=== PATIENT | male | born 1955 | race Caucasian/White ===

== ENCOUNTER → 2017-01-09 | Outpatient (CLI) | payer MEDICARE ==
[2016-10-08 09:38] VITALS: BP 120/83
[~2017-01-09] MED LIST: APIX5TAB PO; ASPI-482 PO; ATOR20TA58 PO; Albuterol Sulfate NEB; BREO ELLIPTA 21 EACH IH; BUDE10.2 IH; CARV3.122 PO; CEPH500C PO; CITA20TA9 PO; CLOP75TA57 PO; CYCL10TA2 PO; FINA5TAB4 PO; FLUT1DIS3 IH; GABA-585 PO; GABA-586 PO; Guaifenesin/Dextromethorphan PO; HYDR-2762 PO; HYDR-971 PO; HYDR200T5 PO; Hydrocodone/Acetaminophen PO; INSU100I11 SQ; INSU100I17 SQ; INSU100V13 SQ; INSU100V31 SQ; INSU100V8 SQ; IPRA4AER IH; Insulin Detemir SQ; Ipratropium/Albuterol Sulfate NEB; LEVO500T59 PO; LISI2.5T PO; METF-620 PO; METF100010 PO; NITR0.4T22 SL; OMEP40CA2 PO; OMEP40CA5 PO; PRED20TA PO; PROAIR HFA8.5 GM IH; SERT50TA PO; TAMS0.4C2 PO
--- NOTE | 2017-01-09 11:16 | KCIC ---
Examination: Frontal views of the bilateral hands, bilateral feet, bilateral knees, pelvis, lateral views of the cervical spine were performed HISTORY: History of chronic pain COMPARISON: None available FINDINGS: Cervical spine lateral view: The vertebral body heights are maintained. There is moderate joint space loss identified at C3-C4, C4-C5, C5-C6, C6-C7 vertebral levels.. No evidence of listhesis identified. No evidence of prevertebral soft tissue swelling The facets are well aligned There is mild anterior compression change of C5 vertebral level. Pelvis: The bilateral femoral heads within the acetabulum. Mild joint space loss bilateral hip joints. Bilateral knees: Mild joint space loss identified in the medial compartment of bilateral knees. No acute fracture Bilateral hands: Old fracture or nonfusion of the ulnar styloid of the left hand. Small curvilinear probable soft tissue calcification projecting over the proximal medial aspect of the proximal phalanx of the third digit of the left hand. Mild degenerative changes identified in the interphalangeal joints of the bilateral hands The alignment of the metacarpophalangeal joints, interphalangeal grossly appears unremarkable bilaterally bilateral feet: The tarsal bones appear to be well aligned. Mild degenerative changes identified in the bilateral metatarsophalangeal joints and interphalangeal joints of the bilateral feet. IMPRESSION: 1. Moderate degenerative changes cervical spine. There is mild anterior compression change of C5 vertebra, age indeterminate. 2. Mild degenerative changes bilateral hips, medial bilateral knee joints, interphalangeal joints bilateral hands and bilateral feet. Electronically signed by: Delgado Prather MD (01/09/2017 11:13 AM) [facility] [id number]
== END | disposition home or self-care (01) ==
LOC: KCIC 10:17
PROVIDERS: ATTEND Internal Medicine Rheumatology
DX: M54.2 Cervicalgia (principal); M47.892 Other spondylosis, cervical region; M16.0 Bilateral primary osteoarthritis of hip; G89.29 Other chronic pain
CPT/HCPCS: 72020; 72170; 73120; 73565; 73620

== ENCOUNTER → 2017-01-23 | Outpatient (CLI) | payer MEDICARE ==
[2016-10-08 09:38] VITALS: BP 120/83
--- NOTE | 2017-01-23 13:28 | RAD ---
APPROVED REPORT Left Upper Extremity Venous Study for DVT. Patient Location: OUT-PATIENT Indications DVT of Upper Extremity:Left Vein Imaging (Left) IJV (L): Absent Flow SCV (L): Spontaneous Axillary (L): Spontaneous, Compressible Brachial (L): Spontaneous, Compressible Basilic (L): Compressible, Spontaneous Cephalic (L): Compressible, Spontaneous Radial (L): Spontaneous, Compressible Ulnar (L): Compressible, Spontaneous Findings Taylor scale images of the left upper extremity deep veins was obtained. The cephalic, brachial and rad ial veins demonstrate spontaneous flow by spectral imaging. On color Doppler imaging there is normal flow. The left subclavian is not well visualized in the most proximal segment but otherwise demonstra ashanti normal spectral and color imaging. No obvious occlusive thrombus is noted in these vessels. The left internal jugular vein has chronic thrombus noted with no flow in the mid to distal segment n ear the junction of the left subclavian vein. More proximally there is flow noted towards the area of the mandible. Critical Notification Critical Value: No <Conclusion> Persistent left internal jugular vein thrombus. Normal flow on the left subclavian on limited images.
== END | disposition home or self-care (01) ==
LOC: US 06:57
PROVIDERS: ATTEND Internal Medicine Cardiovascular Disease
DX: I82.402 Acute embolism and thrombosis of unspecified deep veins of left lower extremity (principal)
CPT/HCPCS: 93971

== ENCOUNTER → 2017-05-03 | Outpatient (CLI) | payer MEDICARE | END | disposition home or self-care (01) | LOC: US 07:41 | DX: I82.622 Acute embolism and thrombosis of deep veins of left upper extremity (principal) | CPT/HCPCS: 93971 ==

== ENCOUNTER → 2017-11-10 | Outpatient (CLI) | payer MEDICARE ==
[~2017-11-10] MED LIST changes: -APIX5TAB PO; -ASPI-482 PO; -ATOR20TA58 PO; -Albuterol Sulfate NEB; -BREO ELLIPTA 21 EACH IH; -BUDE10.2 IH; -CARV3.122 PO; -CEPH500C PO; -CITA20TA9 PO; -CLOP75TA57 PO; -CYCL10TA2 PO; -FINA5TAB4 PO; -FLUT1DIS3 IH; -GABA-585 PO; -GABA-586 PO; -Guaifenesin/Dextromethorphan PO; -HYDR-2762 PO; -HYDR-971 PO; -HYDR200T5 PO; -Hydrocodone/Acetaminophen PO; -INSU100I11 SQ; -INSU100I17 SQ; -INSU100V13 SQ; -INSU100V31 SQ; -INSU100V8 SQ; -IPRA4AER IH; -Insulin Detemir SQ; -Ipratropium/Albuterol Sulfate NEB; -LEVO500T59 PO; -LISI2.5T PO; -METF-620 PO; -METF100010 PO; -NITR0.4T22 SL; -OMEP40CA2 PO; -OMEP40CA5 PO; +PERFLUTREN PROTEIN-A MICROSPHR 0.22 MG/ML 3 ML VIAL. IV; -PRED20TA PO; -PROAIR HFA8.5 GM IH; -SERT50TA PO; -TAMS0.4C2 PO
[2017-11-10] MEDS: PERFLUTREN PROTEIN-A MICROSPHR 0.22 MG/ML 3 ML VIAL. IV (09:54)
== END | disposition home or self-care (01) ==
LOC: ECHO 08:51
DX: G90.01 Carotid sinus syncope (principal); I51.7 Cardiomegaly; I10 Essential (primary) hypertension; E11.9 Type 2 diabetes mellitus without complications; E78.00 Pure hypercholesterolemia, unspecified; J44.9 Chronic obstructive pulmonary disease, unspecified; K21.9 Gastro-esophageal reflux disease without esophagitis
CPT/HCPCS: C8929; Q9956

== ENCOUNTER 2017-11-28 09:24 | Inpatient (IN) | payer MEDICARE ==
[~2017-11-28] VITALS: Ht 182.9 cm; Wt 105.9 kg
[~2017-11-28 09:24] MED LIST changes: +APIX5TAB PO; +ASPI-482 PO; +ATOR20TA58 PO; +Albuterol Sulfate NEB; +BREO ELLIPTA 21 EACH IH; +BUDE10.2 IH; +CARV3.122 PO; +CEPH500C PO; +CITA20TA9 PO; +CLOP75TA57 PO; +CYCL10TA2 PO; +FINA5TAB4 PO; +FLUT1DIS3 IH; +GABA-585 PO; +GABA-586 PO; +Guaifenesin/Dextromethorphan PO; +HYDR-2762 PO; +HYDR-971 PO; +HYDR200T5 PO; +Hydrocodone/Acetaminophen PO; +INSU100I11 SQ; +INSU100I17 SQ; +INSU100V13 SQ; +INSU100V31 SQ; +INSU100V8 SQ; +IPRA4AER IH; +Insulin Detemir SQ; +Ipratropium/Albuterol Sulfate NEB; +LEVO500T59 PO; +LISI2.5T PO; +METF100010 PO; +METF10003 PO; +NITR0.4T22 SL; +OMEP40CA2 PO; +OMEP40CA5 PO; -PERFLUTREN PROTEIN-A MICROSPHR 0.22 MG/ML 3 ML VIAL. IV; +PRED20TA PO; +PROAIR HFA8.5 GM IH; +SERT50TA PO; +TAMS0.4C2 PO
--- NOTE | 2017-11-28 09:52 | PHYS DOC ---
Past Medical History Past Medical History: Asthma, COPD, Depression, Diabetes-Type II, GERD, High Cholesterol, P.U.D., Other Additional Past Medical Histor: chronic pain, ulcers, enlarged prostate Past Surgical History: Appendectomy, Cholecystectomy, Other Additional Past Surgical Histo: back, hernia Alcohol Use: Occasionally Drug Use: Marijuana Adult General Chief Complaint Chief Complaint: SYNCOPE HPI HPI Patient is a 62 year old female with a history of diabetes, hypertension, COPD (pack-a-day smoker), CAD presents to the ED complaining of dizziness and syncopal like episode times one day. Patient states last night when he was on the toilet and he was having a bowel movement and when he stood up he felt like he was going to pass out. States similar symptoms again at 3 this morning and when he stands up now he gets very dizzy. Associated symptoms include cough and shortness of breath. Denies chest pain, abdominal pain, lower leg swelling, fever, dizziness rash or diarrhea. Review of Systems Review of Systems Constitutional: Denies fever or chills [] Eyes: Denies change in visual acuity, redness, or eye pain [] HENT: Denies nasal congestion or sore throat [] Respiratory: Complains of cough and shortness of breath. Cardiovascular: No additional information not addressed in HPI [] GI: Denies abdominal pain, nausea, vomiting, bloody stools or diarrhea [] : Denies dysuria or hematuria [] Musculoskeletal: Denies back pain or joint pain [] Integument: Denies rash or skin lesions [] Neurologic: Denies headache, focal weakness or sensory changes [] All other systems were reviewed and found to be within normal limits, except as documented in this note. Current Medications Current Medications Current Medications Medications (Trade) Dose Ordered Sig/Aretha Start Time Stop Time Status Last Admin Dose Admin Albuterol/ Ipratropium (Duoneb) 3 ml 1X ONCE 11/28/17 10:00 11/28/17 10:01 DC 11/28/17 10:01 3 ML Info (CONTRAST GIVEN -- Rx MONITORING) 1 each PRN DAILY PRN 11/28/17 11:45 11/30/17 11:44 Iohexol (Omnipaque 300 Mg/ml) 75 ml 1X ONCE 11/28/17 11:45 11/28/17 11:46 DC 11/28/17 12:00 75 ML Lidocaine HCl (Lidocaine Pf 2% Vial) 5 ml 1X ONCE 11/28/17 11:30 11/28/17 11:39 DC Sodium Chloride 1,000 ml @ 1,000 mls/hr 1X ONCE 11/28/17 11:30 11/28/17 12:29 DC 11/28/17 11:51 1,000 MLS/HR Allergies Allergies Allergies Coded Allergies Type Severity Reaction Last Updated Verified No Known Drug Allergies 01/29/15 No Physical Exam Physical Exam Constitutional: Well developed, well nourished, no acute distress, non-toxic appearance. [] HENT: Normocephalic, atraumatic, bilateral external ears normal, oropharynx moist, no oral exudates, nose normal. [] Eyes: PERRLA, EOMI, conjunctiva normal, no discharge. [] Neck: Normal range of motion, no tenderness, supple, no stridor. [] Cardiovascular:Heart rate regular rhythm, no murmur [] Lungs & Thorax: Bilateral breath sounds. Mild wheezing bilaterally. [] Abdomen: Bowel sounds normal, soft, no tenderness, no masses, no pulsatile masses. [] Skin: Warm, dry, no erythema, no rash. [] Back: No tenderness, no CVA tenderness. [] Extremities: No tenderness, no cyanosis, no clubbing, ROM intact, no edema. [] Neurologic: Alert and oriented X 3, normal motor function, normal sensory function, no focal deficits noted. [] Psychologic: Affect normal, judgement normal, mood normal. [] Current Patient Data Vital Signs Vital Signs Date Time Temp Pulse Resp B/P (MAP) Pulse Ox O2 Delivery O2 Flow Rate FiO2 11/28/17 12:09 103 24 148/98 (115) 97 Room Air 11/28/17 11:20 97.9 97.9 Lab Values Laboratory Tests Test 11/28/17 10:05 11/28/17 10:50 White Blood Count 7.5 x10^3/uL (4.0-11.0) Red Blood Count 5.46 x10^6/uL (4.30-5.70) Hemoglobin 16.9 g/dL (13.0-17.5) Hematocrit 48.5 % (39.0-53.0) Mean Corpuscular Volume 89 fL (79-100) Mean Corpuscular Hemoglobin 31 pg (25-35) Mean Corpuscular Hemoglobin Concent 35 g/dL (31-37) Red Cell Distribution Width 13.9 % (11.5-14.5) Platelet Count 171 x10^3/uL (140-400) Neutrophils (%) (Auto) 61 % (31-73) Lymphocytes (%) (Auto) 23 % (24-48) L Monocytes (%) (Auto) 13 % (0-9) H Eosinophils (%) (Auto) 2 % (0-3) Basophils (%) (Auto) 1 % (0-3) Neutrophils # (Auto) 4.6 x10^3uL (1.8-7.7) Lymphocytes # (Auto) 1.7 x10^3/uL (1.0-4.8) Monocytes # (Auto) 1.0 x10^3/uL (0.0-1.1) Eosinophils # (Auto) 0.1 x10^3/uL (0.0-0.7) Basophils # (Auto) 0.1 x10^3/uL (0.0-0.2) Prothrombin Time 12.5 SEC (11.7-14.0) Prothrombin Time INR 1.0 (0.8-1.1) D-Dimer (Marga) 0.61 ug/mlFEU (0.00-0.50) H Sodium Level 139 mmol/L (136-145) Potassium Level 4.0 mmol/L (3.5-5.1) Chloride Level 104 mmol/L (98-107) Carbon Dioxide Level 24 mmol/L (21-32) Anion Gap 11 (6-14) Blood Urea Nitrogen 20 mg/dL (8-26) Creatinine 1.1 mg/dL (0.7-1.3) Estimated GFR (Cockcroft-Gault) 67.4 BUN/Creatinine Ratio 18 (6-20) Glucose Level 197 mg/dL (70-99) H Lactic Acid Level 2.1 mmol/L (0.4-2.0) H Calcium Level 9.7 mg/dL (8.5-10.1) Magnesium Level 1.9 mg/dL (1.8-2.4) Total Bilirubin 0.5 mg/dL (0.2-1.0) Aspartate Amino Transferase (AST) 23 U/L (15-37) Alanine Aminotransferase (ALT) 36 U/L (16-63) Alkaline Phosphatase 125 U/L (46-116) H Creatine Kinase 112 U/L (39-308) Troponin I Quantitative < 0.017 ng/mL (0.000-0.055) HN-Nfp-I-Type Natriuretic Peptide 448 pg/mL (0-124) H Total Protein 7.7 g/dL (6.4-8.2) Albumin 3.6 g/dL (3.4-5.0) Albumin/Globulin Ratio 0.9 (1.0-1.7) L Thyroid Stimulating Hormone (TSH) 1.577 uIU/mL (0.358-3.74) Urine Collection Type Unknown Urine Color Zoë Urine Clarity Clear Urine pH 5.5 Urine Specific Charlotte >=1.030 Urine Protein 30 mg/dL (NEG-TRACE) Urine Glucose (UA) 100 mg/dL (NEG) Urine Ketones (Stick) Negative mg/dL (NEG) Urine Blood Negative (NEG) Urine Nitrite Negative (NEG) Urine Bilirubin Small (NEG) Urine Urobilinogen Dipstick 1.0 mg/dL (0.2 mg/dL) Urine Leukocyte Esterase Negative (NEG) Urine RBC Occ /HPF (0-2) Urine WBC 1-4 /HPF (0-4) Urine Squamous Epithelial Cells Few /LPF Urine Bacteria Few /HPF (0-FEW) Urine Mucus Mod /LPF Urine Opiates Screen Neg (NEG) Urine Methadone Screen Neg (NEG) Urine Barbiturates Neg (NEG) Urine Phencyclidine Screen Neg (NEG) Urine Amphetamine/Methamphetamine Neg (NEG) Urine Benzodiazepines Screen Neg (NEG) Urine Cocaine Screen Neg (NEG) Urine Cannabinoids Screen Pos (NEG) Urine Ethyl Alcohol Neg (NEG) Laboratory Tests 11/28/17 10:05 Laboratory Tests 11/28/17 10:05 Microbiology 11/28/17 Blood Culture - Preliminary, Resulted NO GROWTH AFTER 1 DAY EKG EKG [] Radiology/Procedures Radiology/Procedures CT HEAD INDICATION: DIZZINESS, SYNCOPE, EXTREMITY NUMBNESS, TINGLING, H/O STROKE. CVA 2005 COMPARISON: None Available. TECHNIQUE: 5 mm contiguous axial images were obtained from the skull base to the vertex in both bone and soft tissue algorithm. Exposure: One or more of the following individualized dose reduction techniques were utilized for this examination: 1. Automated exposure control 2. Adjustment of the mA and/or kV according to patient size 3. Use of iterative reconstruction technique FINDINGS: Moderate bilateral periventricular white matter hypodensities likely chronic small vessel ischemic disease. No evidence of acute intracranial hemorrhage. No extra-axial fluid collections. No mass effect or midline shift. Ventricular size is appropriate. Basal cisterns are patent. No fractures identified.Taylor-white differentiation is preserved.Globes and orbits are within normal limits. Paranasal sinuses and mastoid air cells are clear. IMPRESSION: No acute intracranial findings. EXAM: CHEST 1 VIEW History: Shortness of breath COMPARISON: 10/07/2016 TECHNIQUE: Single portable radiograph of the chest FINDINGS: The cardiac silhouette is unremarkable. Left-sided cardiac pacer is identified. The costophrenic sulci are clear and well demarcated. IMPRESSION: No radiographic evidence of an acute cardiopulmonary process. PROCEDURE: CT ANGIOGRAPHY CHEST PQRS Compliance Statement: One or more of the following individualized dose reduction techniques were utilized for this examination: 1. Automated exposure control 2. Adjustment of the mA and/or kV according to patient size 3. Use of iterative reconstruction technique CT CHEST WITH CONTRAST, PULMONARY ANGIOGRAM History: SOA. DIZZINESS, WEAKNESS. Comparison: CT chest with contrast, CT PE, October 07, 2016. Technique: Helical CT of the chest was performed after the administration of 75 cc Omnipaque 300 intravenous contrast according to PE protocol. Axial and coronal reconstructions were obtained. 3-D MIP images were constructed to better evaluate the pulmonary arteries. Findings: Pulmonary arteries are adequately opacified. There is no evidence of pulmonary embolism. There is left chest dual-chamber pacer. With left-sided injection there is opacification of multiple left chest wall collaterals and the azygos system raising possibility of impaired central venous return. There is no thoracic aortic dissection. There are subcentimeter mediastinal lymph nodes. There is mild right hilar adenopathy, unchanged. There is coronary artery disease. Cardiac size normal, no pericardial effusion. The central airways are patent. Mild dependent atelectasis in the lower lobes. There is no lung consolidation. No pleural effusion. Cholecystectomy. Visualized upper abdomen is unremarkable. Bones unremarkable. IMPRESSION: There is no CT evidence of pulmonary embolus. Course & Med Decision Making Course & Med Decision Making Pertinent Labs and Imaging studies reviewed. (See chart for details) []Discussed case with hospitalist, Dr. Salomon. Agrees to admission and further management of patient. Patient stable for admission. Consults for pulmonology and cardiology placed. Dragon Disclaimer Dragon Disclaimer This electronic medical record was generated, in whole or in part, using a voice recognition dictation system. Departure Departure Impression: Primary Impression: COPD (chronic obstructive pulmonary disease) Additional Impression: Pre-syncope Disposition: ADMITTED INPATIENT Admitting Physician: Xie. Mukherjee Condition: STABLE Referrals: STAN MOONEY MD (PCP) Problem Qualifiers VALERIY FRENCH Nov 28, 2017 09:51
--- NOTE | 2017-11-28 09:54 | EKG ---
[facility] [address] [place] [address] Test Date: 2017-11-28 Test Time: 09:47:57 Pat Name: JASPREET JAY Department: Room: Gender: M Director Biostatistics: : 1955 Requested By: VALERIY FRENCH Order Number: [id number] Reading MD: Measurements Intervals Hector Rate: 118 P: -68 MI: 90 QRS: -59 QRSD: 112 T: 90 QT: 328 QTc: 462 Interpretive Statements SINUS TACHYCARDIA ABNORMAL LEFT AXIS DEVIATION LEFT ANTERIOR FASCICULAR BLOCK INCOMPLETE RIGHT BUNDLE BRANCH BLOCK LVH WITH REPOLARIZATION ABNORMALITY ABNORMAL ECG RI6.01 No previous ECG available for comparison
[2017-11-28] MEDS ORDERED: IPRATRPIUM/ALBUTEROL 0.5/2.5MG 3 ML NEBU. NEB ONE ×2 (10:00→13:00)
--- NOTE | 2017-11-28 10:12 | RAD ---
EXAM: CHEST 1 VIEW History: Shortness of breath COMPARISON: 10/07/2016 TECHNIQUE: Single portable radiograph of the chest FINDINGS: The cardiac silhouette is unremarkable. Left-sided cardiac pacer is identified. The costophrenic sulci are clear and well demarcated. IMPRESSION: No radiographic evidence of an acute cardiopulmonary process. Electronically signed by: Delgado Prather MD (11/28/2017 10:08 AM) [id number]
[2017-11-28 10:24] LABS: BASO # 0.1 x10^3/uL (0.0-0.2); BASO % 1 % (0-3); EOS # 0.1 x10^3/uL (0.0-0.7); EOS % 2 % (0-3); HEMATOCRIT 48.5 % (39.0-53.0); HEMOGLOBIN 16.9 g/dL (13.0-17.5); LYMPH # 1.7 x10^3/uL (1.0-4.8); LYMPH % 23 % (24-48); MEAN CORPUSCULAR HEMOGLOBIN 31 pg (25-35); MEAN CORPUSCULAR HGB CONC 35 g/dL (31-37); MEAN CORPUSCULAR VOLUME 89 fL (79-100); MONO % 13 % (0-9); NEUT # 4.6 x10^3uL (1.8-7.7); NEUT % 61 % (31-73); PLATELET COUNT 171 x10^3/uL (140-400); RED BLOOD COUNT 5.46 x10^6/uL (4.30-5.70); RED CELL DISTRIBUTION WIDTH 13.9 % (11.5-14.5); WHITE BLOOD COUNT 7.5 x10^3/uL (4.0-11.0)
[2017-11-28 10:34] LABS: PROTHROMBIN TIME PATIENT 12.5 SEC (11.7-14.0)
[2017-11-28 10:39] LABS: D-DIMER 0.61 ug/mlFEU (0.00-0.50)
[2017-11-28 10:46] LABS: CALCIUM 9.7 mg/dL (8.5-10.1); CREATININE 1.1 mg/dL (0.7-1.3); GFR 67.4
[2017-11-28 10:51] LABS: ALBUMIN 3.6 g/dL (3.4-5.0); ALBUMIN/GLOBULIN RATIO 0.9 (1.0-1.7); MAGNESIUM 1.9 mg/dL (1.8-2.4); TOTAL BILIRUBIN 0.5 mg/dL (0.2-1.0); TOTAL PROTEIN 7.7 g/dL (6.4-8.2)
--- NOTE | 2017-11-28 10:58 | RAD ---
CT HEAD INDICATION: DIZZINESS, SYNCOPE, EXTREMITY NUMBNESS, TINGLING, H/O STROKE. CVA 2005 COMPARISON: None Available. TECHNIQUE: 5 mm contiguous axial images were obtained from the skull base to the vertex in both bone and soft tissue algorithm. Exposure: One or more of the following individualized dose reduction techniques were utilized for this examination: 1. Automated exposure control 2. Adjustment of the mA and/or kV according to patient size 3. Use of iterative reconstruction technique FINDINGS: Moderate bilateral periventricular white matter hypodensities likely chronic small vessel ischemic disease. No evidence of acute intracranial hemorrhage. No extra-axial fluid collections. No mass effect or midline shift. Ventricular size is appropriate. Basal cisterns are patent. No fractures identified.Taylor-white differentiation is preserved.Globes and orbits are within normal limits. Paranasal sinuses and mastoid air cells are clear. IMPRESSION: No acute intracranial findings. Electronically signed by: Delgado Prather MD (11/28/2017 10:54 AM) [id number]
[2017-11-28 11:05] LABS: BILIRUBIN,URINE SMALL (NEG); CLARITY,URINE CLEAR; COLOR,URINE AMBER; NITRITE,URINE NEGATIVE (NEG); PH,URINE 5.5; PROTEIN,URINE 30 mg/dL (NEG-TRACE)
[2017-11-28 11:13] LABS: BARBITURATES NEG (NEG); BENZODIAZEPINES NEG (NEG); CANNABINOIDS POS (NEG); COCAINE NEG (NEG); METHADONE NEG (NEG); OPIATES NEG (NEG); PHENCYCLIDINE NEG (NEG)
[2017-11-28 11:14] LABS: AMPHETAMINE/METHAMPHETAMINE NEG (NEG)
[2017-11-28 11:16] LABS: BACTERIA,URINE FEW /HPF (0-FEW); RBC,URINE OCC /HPF (0-2); SQUAMOUS EPITHELIAL CELL,UR FEW /LPF
[2017-11-28] MEDS ORDERED: IV NORMAL SALINE 1000ML BAG 1,000 ML IV ONE ×3 (11:30→13:45)
[2017-11-28] MEDS ORDERED: LIDOCAINE 2% PF Vial for OR 5 ML VIAL. IJ ONE (11:30)
[2017-11-28] MEDS ORDERED: CONTRAST GIVEN. MC PRN (11:45)
[2017-11-28] MEDS ORDERED: IOHEXOL 300 MG/ML 100ML VIAL. IV ONE (11:45)
--- NOTE | 2017-11-28 12:29 | RAD ---
PQRS Compliance Statement: One or more of the following individualized dose reduction techniques were utilized for this examination: 1. Automated exposure control 2. Adjustment of the mA and/or kV according to patient size 3. Use of iterative reconstruction technique CT CHEST WITH CONTRAST, PULMONARY ANGIOGRAM History: SOA. DIZZINESS, WEAKNESS. Comparison: CT chest with contrast, CT PE, October 07, 2016. Technique: Helical CT of the chest was performed after the administration of 75 cc Omnipaque 300 intravenous contrast according to PE protocol. Axial and coronal reconstructions were obtained. 3-D MIP images were constructed to better evaluate the pulmonary arteries. Findings: Pulmonary arteries are adequately opacified. There is no evidence of pulmonary embolism. There is left chest dual-chamber pacer. With left-sided injection there is opacification of multiple left chest wall collaterals and the azygos system raising possibility of impaired central venous return. There is no thoracic aortic dissection. There are subcentimeter mediastinal lymph nodes. There is mild right hilar adenopathy, unchanged. There is coronary artery disease. Cardiac size normal, no pericardial effusion. The central airways are patent. Mild dependent atelectasis in the lower lobes. There is no lung consolidation. No pleural effusion. Cholecystectomy. Visualized upper abdomen is unremarkable. Bones unremarkable. IMPRESSION: There is no CT evidence of pulmonary embolus. Electronically signed by: Shaji Yen MD (11/28/2017 12:25 PM) [id number]
[2017-11-28] MEDS ORDERED: MORPHINE SULFATE 2 MG/ML DISP.SYRIN. IV PRN (13:00)
[2017-11-28] MEDS ORDERED: ONDANSETRON PF 4 MG/2 ML VIAL. IV PRN ×2 (13:00→13:45)
[2017-11-28] MEDS ORDERED: ACETAMINOPHEN 325 MG TABLET. PO PRN ×2 (13:00→13:45)
--- NOTE | 2017-11-28 13:39 | PDOC1 ---
History and Physical Date of Admission Date of Admission 11/28/17 Identification/Chief Complaint Chief Complaint skin rash, dizzy Source Source: Chart review, Patient History of Present Illness History of Present Illness HPI HPI Patient is a 62 year old female with a history of diabetes, hypertension, COPD (pack-a-day smoker), CAD presents to the ED complaining of dizziness and syncopal like episode x2 ds. pt said since Monday, he felt very lightheaded, happens when he walks, not vertigo, almost passed out today when he went to bathroom when he was having a BM and stood up and felt like was going to pass out and saw his PCP in the office today for his skin rash. He denies chest pain, palpitation, sob, has chronic cough with copd and smoking 1PPD. He noticed his rt chest and rt back has some red bumps, itchy, some pain,denies contact or bug bite, feels more itchy when he increased his duloxtine from 30 to 60mg daily from PCP. CTA neg PE. denies drug use but + marijuana. Past Medical History Cardiovascular: CAD, HTN, Hyperlipidemia, Other Pulmonary: COPD, Pneumonia CENTRAL NERVOUS SYSTEM: CVA, Periperal neuropathy, Vertigo GI: GERD Heme/Onc: Cancer Hepatobiliary: Cirrhosis, Other Psych: Depression Rheumatologic: Rheumatoid arthritis, Other Infectious disease: No pertinent hx Renal/: Benign prostatic enlarg. Endocrine: Diabetes Past Surgical History Past Surgical History: Pacemaker, Appendectomy, Cholecystectomy, Hernia Repair , Other Family History Family History: Hypertension Social History Smoke: 1 pack per day ALCOHOL: occassional Drugs: None Current Problem List Problem List Problems Medical Problems: (1) COPD (chronic obstructive pulmonary disease) Status: Acute (2) Pre-syncope Status: Acute Current Medications Current Medications Current Medications Medications (Trade) Dose Ordered Sig/Aretha Start Time Stop Time Status Last Admin Dose Admin Acetaminophen (Tylenol) 650 mg PRN Q4HRS PRN 11/28/17 13:00 11/29/17 12:59 Albuterol/ Ipratropium (Duoneb) 3 ml 1X ONCE 11/28/17 13:00 11/28/17 13:01 DC Azithromycin 500 mg/Sodium Chloride 250 ml @ 250 mls/hr 1X ONCE 11/28/17 14:30 11/28/17 15:29 Ceftriaxone Sodium 50 ml @ 100 mls/hr 1X ONCE 11/28/17 14:00 11/28/17 14:29 Info (CONTRAST GIVEN -- Rx MONITORING) 1 each PRN DAILY PRN 11/28/17 11:45 11/30/17 11:44 Iohexol (Omnipaque 300 Mg/ml) 75 ml 1X ONCE 11/28/17 11:45 11/28/17 11:46 DC 11/28/17 12:00 75 ML Lidocaine HCl (Lidocaine Pf 2% Vial) 5 ml 1X ONCE 11/28/17 11:30 11/28/17 11:39 DC Morphine Sulfate (Morphine Sulfate) 2 mg PRN Q2HR PRN 11/28/17 13:00 11/29/17 12:59 Ondansetron HCl (Zofran) 4 mg PRN Q8HRS PRN 11/28/17 13:00 11/29/17 12:59 Sodium Chloride 1,000 ml @ 1,000 mls/hr 1X ONCE 11/28/17 13:45 11/28/17 14:44 Allergies Allergies Allergies Coded Allergies Type Severity Reaction Last Updated Verified No Known Drug Allergies 01/29/15 No ROS Review of System CONSTITUTIONAL: No fever or chills EYES: No recent changes SKIN: No rash or itching CARDIOVASCULAR: No chest pain, syncope, palpitations, or edema RESPIRATORY: No SOB or cough GASTROINTESTINAL: No nausea, vomiting or abdominal pain NEUROLOGICAL: No headaches or weakness ENDOCRINE: No cold or heat intolerance GENITOURINARY: No urgency or frequency of urination MUSCULOSKELETAL: No back pain or joint pain LYMPHATICS: No enlarged lymph nodes PSYCHIATRIC: No anxiety or depression Physical Exam Physical Exam GEN.: No apparent distress. Alert and oriented. HEENT: Head is normocephalic, atraumatic NECK: Supple. LUNGS: bl course bs, no wheezing or rales. HEART: RRR, S1, S2 present. Peripheral pulses intact ABDOMEN: Soft, nontender. Positive bowel sounds. EXTREMITIES: Without any cyanosis. right side mild weakness, 3-4/5, left side 5/5. NEUROLOGIC: Normal speech, normal tone PSYCHIATRIC: Normal affect, normal mood. SKIN: rt chest and right back has some red papules, with a few vesicles broken by his scratch. Vitals Vitals Vital Signs Date Time Temp Pulse Resp B/P (MAP) Pulse Ox O2 Delivery O2 Flow Rate FiO2 11/28/17 12:54 105 20 145/90 (108) 96 Room Air 11/28/17 11:20 97.9 97.9 Labs Labs Laboratory Tests Test 11/28/17 10:05 11/28/17 10:50 White Blood Count 7.5 x10^3/uL (4.0-11.0) Red Blood Count 5.46 x10^6/uL (4.30-5.70) Hemoglobin 16.9 g/dL (13.0-17.5) Hematocrit 48.5 % (39.0-53.0) Mean Corpuscular Volume 89 fL (79-100) Mean Corpuscular Hemoglobin 31 pg (25-35) Mean Corpuscular Hemoglobin Concent 35 g/dL (31-37) Red Cell Distribution Width 13.9 % (11.5-14.5) Platelet Count 171 x10^3/uL (140-400) Neutrophils (%) (Auto) 61 % (31-73) Lymphocytes (%) (Auto) 23 % (24-48) Monocytes (%) (Auto) 13 % (0-9) Eosinophils (%) (Auto) 2 % (0-3) Basophils (%) (Auto) 1 % (0-3) Neutrophils # (Auto) 4.6 x10^3uL (1.8-7.7) Lymphocytes # (Auto) 1.7 x10^3/uL (1.0-4.8) Monocytes # (Auto) 1.0 x10^3/uL (0.0-1.1) Eosinophils # (Auto) 0.1 x10^3/uL (0.0-0.7) Basophils # (Auto) 0.1 x10^3/uL (0.0-0.2) Prothrombin Time 12.5 SEC (11.7-14.0) Prothromb Time International Ratio 1.0 (0.8-1.1) D-Dimer (Marga) 0.61 ug/mlFEU (0.00-0.50) Sodium Level 139 mmol/L (136-145) Potassium Level 4.0 mmol/L (3.5-5.1) Chloride Level 104 mmol/L (98-107) Carbon Dioxide Level 24 mmol/L (21-32) Anion Gap 11 (6-14) Blood Urea Nitrogen 20 mg/dL (8-26) Creatinine 1.1 mg/dL (0.7-1.3) Estimated GFR (Cockcroft-Gault) 67.4 BUN/Creatinine Ratio 18 (6-20) Glucose Level 197 mg/dL (70-99) Lactic Acid Level 2.1 mmol/L (0.4-2.0) Calcium Level 9.7 mg/dL (8.5-10.1) Magnesium Level 1.9 mg/dL (1.8-2.4) Total Bilirubin 0.5 mg/dL (0.2-1.0) Aspartate Amino Transf (AST/SGOT) 23 U/L (15-37) Alanine Aminotransferase (ALT/SGPT) 36 U/L (16-63) Alkaline Phosphatase 125 U/L (46-116) Creatine Kinase 112 U/L (39-308) Troponin I Quantitative < 0.017 ng/mL (0.000-0.055) KK-Ogm-G-Type Natriuretic Peptide 448 pg/mL (0-124) Total Protein 7.7 g/dL (6.4-8.2) Albumin 3.6 g/dL (3.4-5.0) Albumin/Globulin Ratio 0.9 (1.0-1.7) Thyroid Stimulating Hormone (TSH) 1.577 uIU/mL (0.358-3.74) Urine Collection Type Unknown Urine Color Zoë Urine Clarity Clear Urine pH 5.5 Urine Specific [place] >=1.030 Urine Protein 30 mg/dL (NEG-TRACE) Urine Glucose (UA) 100 mg/dL (NEG) Urine Ketones (Stick) Negative mg/dL (NEG) Urine Blood Negative (NEG) Urine Nitrite Negative (NEG) Urine Bilirubin Small (NEG) Urine Urobilinogen Dipstick 1.0 mg/dL (0.2 mg/dL) Urine Leukocyte Esterase Negative (NEG) Urine RBC Occ /HPF (0-2) Urine WBC 1-4 /HPF (0-4) Urine Squamous Epithelial Cells Few /LPF Urine Bacteria Few /HPF (0-FEW) Urine Mucus Mod /LPF Urine Opiates Screen Neg (NEG) Urine Methadone Screen Neg (NEG) Urine Barbiturates Neg (NEG) Urine Phencyclidine Screen Neg (NEG) Urine Amphetamine/Methamphetamine Neg (NEG) Urine Benzodiazepines Screen Neg (NEG) Urine Cocaine Screen Neg (NEG) Urine Cannabinoids Screen Pos (NEG) Urine Ethyl Alcohol Neg (NEG) Laboratory Tests Test 11/28/17 10:05 11/28/17 10:50 White Blood Count 7.5 x10^3/uL (4.0-11.0) Red Blood Count 5.46 x10^6/uL (4.30-5.70) Hemoglobin 16.9 g/dL (13.0-17.5) Hematocrit 48.5 % (39.0-53.0) Mean Corpuscular Volume 89 fL (79-100) Mean Corpuscular Hemoglobin 31 pg (25-35) Mean Corpuscular Hemoglobin Concent 35 g/dL (31-37) Red Cell Distribution Width 13.9 % (11.5-14.5) Platelet Count 171 x10^3/uL (140-400) Neutrophils (%) (Auto) 61 % (31-73) Lymphocytes (%) (Auto) 23 % (24-48) Monocytes (%) (Auto) 13 % (0-9) Eosinophils (%) (Auto) 2 % (0-3) Basophils (%) (Auto) 1 % (0-3) Neutrophils # (Auto) 4.6 x10^3uL (1.8-7.7) Lymphocytes # (Auto) 1.7 x10^3/uL (1.0-4.8) Monocytes # (Auto) 1.0 x10^3/uL (0.0-1.1) Eosinophils # (Auto) 0.1 x10^3/uL (0.0-0.7) Basophils # (Auto) 0.1 x10^3/uL (0.0-0.2) Prothrombin Time 12.5 SEC (11.7-14.0) Prothromb Time International Ratio 1.0 (0.8-1.1) D-Dimer (Marga) 0.61 ug/mlFEU (0.00-0.50) Sodium Level 139 mmol/L (136-145) Potassium Level 4.0 mmol/L (3.5-5.1) Chloride Level 104 mmol/L (98-107) Carbon Dioxide Level 24 mmol/L (21-32) Anion Gap 11 (6-14) Blood Urea Nitrogen 20 mg/dL (8-26) Creatinine 1.1 mg/dL (0.7-1.3) Estimated GFR (Cockcroft-Gault) 67.4 BUN/Creatinine Ratio 18 (6-20) Glucose Level 197 mg/dL (70-99) Lactic Acid Level 2.1 mmol/L (0.4-2.0) Calcium Level 9.7 mg/dL (8.5-10.1) Magnesium Level 1.9 mg/dL (1.8-2.4) Total Bilirubin 0.5 mg/dL (0.2-1.0) Aspartate Amino Transf (AST/SGOT) 23 U/L (15-37) Alanine Aminotransferase (ALT/SGPT) 36 U/L (16-63) Alkaline Phosphatase 125 U/L (46-116) Creatine Kinase 112 U/L (39-308) Troponin I Quantitative < 0.017 ng/mL (0.000-0.055) EU-Vnf-K-Type Natriuretic Peptide 448 pg/mL (0-124) Total Protein 7.7 g/dL (6.4-8.2) Albumin 3.6 g/dL (3.4-5.0) Albumin/Globulin Ratio 0.9 (1.0-1.7) Thyroid Stimulating Hormone (TSH) 1.577 uIU/mL (0.358-3.74) Urine Collection Type Unknown Urine Color Zoë Urine Clarity Clear Urine pH 5.5 Urine Specific [place] >=1.030 Urine Protein 30 mg/dL (NEG-TRACE) Urine Glucose (UA) 100 mg/dL (NEG) Urine Ketones (Stick) Negative mg/dL (NEG) Urine Blood Negative (NEG) Urine Nitrite Negative (NEG) Urine Bilirubin Small (NEG) Urine Urobilinogen Dipstick 1.0 mg/dL (0.2 mg/dL) Urine Leukocyte Esterase Negative (NEG) Urine RBC Occ /HPF (0-2) Urine WBC 1-4 /HPF (0-4) Urine Squamous Epithelial Cells Few /LPF Urine Bacteria Few /HPF (0-FEW) Urine Mucus Mod /LPF Urine Opiates Screen Neg (NEG) Urine Methadone Screen Neg (NEG) Urine Barbiturates Neg (NEG) Urine Phencyclidine Screen Neg (NEG) Urine Amphetamine/Methamphetamine Neg (NEG) Urine Benzodiazepines Screen Neg (NEG) Urine Cocaine Screen Neg (NEG) Urine Cannabinoids Screen Pos (NEG) Urine Ethyl Alcohol Neg (NEG) VTE Prophylaxis Ordered VTE Prophylaxis Devices: Yes VTE Pharmacological Prophylaxi: Yes Assessment/Plan Assessment/Plan dizzy/ lightheaded, presyncope, need to rule out orthostatic hypotension skin rash, not clear etiology, could be contact or bug bite PPM H/O CAD WITH stents dm2 on insulin COPD tobaccoism HTN HLD GERD depression BPH drug abuse with marijuana h/o stroke with mild rt side weakness groin aron dermatitis plan: tele, PPM integration ,defer to Card card, pulm, neuro consult CT head neg, may need MRI, defer to neuro need verify home meds ssi for now check orthostatic BP check carotid US nystatin powder for groin area steroid cream for chest and back rash, will try to get derm consult will do dvt ppx if not AC PTOT JORDI CASTREJON MD Nov 28, 2017 13:39
[2017-11-28] MEDS ORDERED: DEXTROSE 50% 25 GM / 50ML DISP.SYRIN. IV PRN (13:45)
[2017-11-28] MEDS ORDERED: DOCUSATE SODIUM 100 MG CAPSULE. PO PRN (13:45)
[2017-11-28] MEDS ORDERED: hydrALAZINE 20 MG/ML VIAL. IVP PRN (13:45)
[2017-11-28] MEDS ORDERED: AZITHROMYCIN 500 MG in IV NORMAL SALINE 250ML 250 ML IV ONE (14:30)
--- NOTE | 2017-11-28 14:40 | RAD ---
Carotid ultrasound, 11/28/2017: HISTORY: Severe lightheadedness Duplex evaluation of the carotid arteries and neck was performed including grayscale, color-flow and spectral Doppler analysis. There is mild smooth plaquing at the carotid bifurcations. The bifurcations are located somewhat high limiting evaluation of the internal carotid arteries. The peak systolic velocity in the right internal carotid artery is 80 cm per sec with an end-diastolic velocity of 27 cm/s and an internal carotid to common carotid artery ratio 1.0. The peak systolic velocity in the left internal carotid artery is 114 cm/s with an end-diastolic velocity of 20 cm/s and an internal carotid to common carotid artery ratio 1.2. These Doppler findings do not suggest high-grade stenosis. Antegrade flow is present in both vertebral arteries in the neck. IMPRESSION: Mild atherosclerotic plaquing at both carotid bifurcations with underlying luminal narrowing in the 0-50 percent diameter range bilaterally. Note: Stenosis calculations for CT, MRA and conventional angiography are based upon determination of the distal ICA diameter in accordance with the NASCET methodology. Stenosis calculations for Doppler studies are derived from validated velocity criteria which are known to correlate with NASCET methodology of determining stenosis. Electronically signed by: Héctor Moise MD (11/28/2017 2:36 PM) [facility]
[2017-11-28 14:51] VITALS: BP 142/91
[2017-11-28] MEDS: MORPHINE SULFATE 2 MG/ML DISP.SYRIN. IV PRN ×2 (15:11→17:36)
--- NOTE | 2017-11-28 15:24 | PDOC2 ---
NEUROLOGY CONSULT Date of Admission Date of Admission DATE: 11/28/17 TIME: 15:20 Reason for Consult Reason for Consult: Syncope Referring Physician Referring Physician: Dr. Salomon PCP: Dr. Nazario Source Source: Chart review, Patient History of Present Illness History of Present Illness The patient is a 62-year-old right-handed male who felt lightheaded 2 days ago after using the restroom. He has a history of cardiomyopathy and pacemaker. I have seen him in the past for bilateral carpal tunnel syndrome, diabetic neuropathy, cervical spondylosis without radiculopathy on EMG, left cubital tunnel syndrome, and right Guyon's canal syndrome. He underwent left carpal tunnel release and had excellent relief of symptoms. He has never had a seizure. He did have a stroke in 2005. He denies any history of head injury. Again, he simply felt lightheaded, he did not lose consciousness, there was no vertigo, diplopia, dysphagia, dysarthria, local numbness or weakness, convulsive activity, tongue biting, incontinence, or postictal confusion. Patient is also concerned about a rash she has had for the past few days. Past Medical History Cardiovascular: CAD, CHF, [place], Syncope (carotid artery hypersensitivity syndrome ), Hyperlipidemia Pulmonary: COPD CENTRAL NERVOUS SYSTEM: CVA, Periperal neuropathy GI: GERD Heme/Onc: Other (splenomegaly) Psych: Depression Musculoskeletal: Osteoarthritis Rheumatologic: Rheumatoid arthritis Renal/: Benign prostatic enlarg. Endocrine: Diabetes Past Surgical History Past Surgical History: Pacemaker, Hernia Repair, Other (lumbar) Family History Family History: Cancer Social History Social History , smokes a pack of cigarettes per day, no alcohol, retired Current Medications Current Medications Current Medications Albuterol/ Ipratropium (Duoneb) 3 ml 1X ONCE NEB Last administered on at 10:01; Start 11/28/17 at 10:00; Stop 11/28/17 at 10:01; Status DC Lidocaine HCl (Lidocaine Pf 2% Vial) 5 ml 1X ONCE IJ ; Start 11/28/17 at 11:30; Stop 11/28/17 at 11:39; Status DC Sodium Chloride 1,000 ml @ 1,000 mls/hr 1X ONCE IV Last administered on at 11:51; Start 11/28/17 at 11:30; Stop 11/28/17 at 12:29; Status DC Iohexol (Omnipaque 300 Mg/ml) 75 ml 1X ONCE IV Last administered on 11/28/17at 12:00; Start 11/28/17 at 11:45; Stop 11/28/17 at 11:46; Status DC Info (CONTRAST GIVEN -- Rx MONITORING) 1 each PRN DAILY PRN MC SEE COMMENTS; Start 11/28/17 at 11:45; Stop 11/30/17 at 11:44 Albuterol/ Ipratropium (Duoneb) 3 ml 1X ONCE NEB Last administered on at 13:48; Start 11/28/17 at 13:00; Stop 11/28/17 at 13:01; Status DC Ondansetron HCl (Zofran) 4 mg PRN Q8HRS PRN IV NAUSEA/VOMITING; Start 11/28/17 at 13:00; Stop 11/28/17 at 13:52; Status DC Morphine Sulfate (Morphine Sulfate) 2 mg PRN Q2HR PRN IV PAIN; Start 11/28/17 at 13:00; Stop 11/28/17 at 13:51; Status DC Acetaminophen (Tylenol) 650 mg PRN Q4HRS PRN PO FEVER; Start 11/28/17 at 13:00; Stop 11/28/17 at 13:51; Status DC Ceftriaxone Sodium 50 ml @ 100 mls/hr 1X ONCE IV Last administered on at 13:56; Start 11/28/17 at 14:00; Stop 11/28/17 at 14:29; Status DC Azithromycin 500 mg/Sodium Chloride 250 ml @ 250 mls/hr 1X ONCE IV ; Start 11/28/17 at 14:30; Stop 11/28/17 at 15:29 Sodium Chloride 1,000 ml @ 1,000 mls/hr 1X ONCE IV Last administered on at 13:39; Start 11/28/17 at 13:45; Stop 11/28/17 at 14:44; Status DC Sodium Chloride 1,000 ml @ 1,000 mls/hr 1X ONCE IV ; Start 11/28/17 at 13:45; Stop 11/28/17 at 14:44; Status DC Acetaminophen (Tylenol) 650 mg PRN Q6HRS PRN PO FEVER; Start 11/28/17 at 13:45 Ondansetron HCl (Zofran) 4 mg PRN Q6HRS PRN IV NAUSEA/VOMITING; Start 11/28/17 at 13:45 Morphine Sulfate (Morphine Sulfate) 2 mg PRN Q2HR PRN IV MODERATE TO SEVERE PAIN Last administered on 11/28/17at 15:11; Start 11/28/17 at 13:45 Tramadol HCl (Ultram) 50 mg PRN Q6HRS PRN PO MILD TO MODERATE PAIN; Start at 13:45 Hydralazine HCl (Apresoline Inj) 10 mg PRN Q4HRS PRN IVP ELEVATED BP, SEE COMMENTS; Start 11/28/17 at 13:45 Docusate Sodium (Colace) 100 mg PRN DAILY PRN PO CONSTIPATION; Start 11/28/17 at 13:45 Albuterol/ Ipratropium (Duoneb) 3 ml RTQID NEB ; Start 11/28/17 at 16:00 Albuterol Sulfate (Ventolin Neb Soln) 2.5 mg PRN Q2HR PRN NEB SHORTNESS OF BREATH; Start 11/28/17 at 13:45 Guaifenesin (Mucinex) 600 mg BID PO ; Start 11/28/17 at 14:30 Triamcinolone Acetonide (Kenalog) 1 karsten BID TP ; Start 11/28/17 at 21:00 Nystatin (Nystop) 1 karsten BID TP ; Start 11/28/17 at 21:00 Diphenhydramine HCl (Benadryl) 25 mg PRN Q6HRS PRN PO ITCHING; Start 11/28/17 at 13:45 Insulin Human Lispro (HumaLOG) 0-9 UNITS TIDWMEALS SQ ; Start 11/28/17 at 17:00 Dextrose (Dextrose 50%-Water Syringe) 12.5 gm PRN Q15MIN PRN IV SEE COMMENTS; Start 11/28/17 at 13:45 Active Scripts Active Eliquis (Apixaban) 5 Mg Tablet 5 Mg PO BID Reported Hydroxychloroquine Sulfate 200 Mg Tablet 1 Tab PO BID Finasteride 5 Mg Tablet 1 Tab PO DAILY Zoloft (Sertraline Hcl) 50 Mg Tablet 1 Tab PO DAILY Omeprazole 40 Mg Capsule.dr 1 Cap PO DAILY Metformin Hcl Er (Metformin Hcl) 1,000 Mg Tab.er.24 1,000 Mg PO DAILYWBKFT Cephalexin 500 Mg Capsule 2 Cap PO BID 10 Days Hydrocodone-Apap 7.5-325 (Hydrocodone Bit/Acetaminophen) 1 Each Tablet 1 Tab PO PRN Q6HRS PRN NITROGLYCERIN SubLingual (Nitroglycerin) 0.4 Mg Tab.subl 0.4 Mg SL PRN Q5MIN PRN Levemir (Insulin Detemir) 100 Unit/1 Ml Vial 50 Unit SQ BID Breo Ellipta 200-25 Mcg INH (Fluticasone/Vilanterol) 1 Each Blst.w.dev 2 Puff IH DAILY PRN Atorvastatin Calcium 20 Mg Tablet 20 Mg PO HS Gabapentin 300 Mg Capsule 300 Mg PO TID NEXT DOSE DUE AT 2 PM AND AT BEDTIME Carvedilol 3.125 Mg Tablet 1 Tab PO BID NEXT DOSE DUE WITH SUPPER TODAY Lisinopril 2.5 Mg Tablet 1 Tab PO DAILY NEXT DOSE DUE ON 11/05/14 Plavix (Clopidogrel Bisulfate) 75 Mg Tablet 1 Tab PO DAILY NEXT DOSE DUE ON 11/05/14 Tamsulosin Hcl 0.4 Mg Cap.er.24h 0.4 Mg PO HS MAY TAKE ANYTIME Prilosec (Omeprazole) 40 Mg Capsule.dr 40 Mg PO DAILY MAY TAKE ANY TIME Aspir 81 (Aspirin) 81 Mg Tablet.dr 81 Mg PO DAILY NEXT DOSE DUE ON 11/05/14 Allergies Allergies: Coded Allergies: No Known Drug Allergies (Unverified , 01/29/15) ROS Review of System Patient denies fevers, chills, weight loss, angina, abdominal pain, change in bowels, or dysuria. Positive for rash and dyspnea. 14-point review of systems is negative. Physical Exam Physical Examination General: Well-developed, well-nourished, white male, in no acute distress. He is coughing a lot HEENT: Normocephalic andatraumatic. Temporal arteriespulsatile and nontender. Neck: Supple without bruit, no meningismus Musculoskeletal: Stability:see neurologic. Gait exam:see neurologic. Tone:see neurologic. Strength:see neurologic. Neurological: Mental Status:intact, orientation, memory, attention span/concentration, language, fund of knowledge normal. Cranial Nerves:Pupils equal and reactive to light, extraocular movements areintact, visual garcia are full to confrontation. Facial sensation is normal. There is no facial asymmetry. Vestibulo-ocular reflex is intact. Palate elevates and tongue protrudes in midline. All other cranial related problems are negative except as mentioned before.Reflexes:0+ and symmetric with flexor plantar responses. Motor:5/5 strength with normal tone and bulk. Coordination:Finger-nose finger and heel-to -llamas testing are normal. Rapid alternating movements and fine finger movements are intact. Gait:Normal, including tandem. Sensory:stocking loss. Vitals VITALS Vital Signs Date Time Temp Pulse Resp B/P (MAP) Pulse Ox O2 Delivery O2 Flow Rate FiO2 11/28/17 14:51 97.9 107 22 142/91 (108) 95 Room Air 97.9 Labs Labs Laboratory Tests Test 11/28/17 10:05 11/28/17 10:50 White Blood Count 7.5 x10^3/uL (4.0-11.0) Red Blood Count 5.46 x10^6/uL (4.30-5.70) Hemoglobin 16.9 g/dL (13.0-17.5) Hematocrit 48.5 % (39.0-53.0) Mean Corpuscular Volume 89 fL (79-100) Mean Corpuscular Hemoglobin 31 pg (25-35) Mean Corpuscular Hemoglobin Concent 35 g/dL (31-37) Red Cell Distribution Width 13.9 % (11.5-14.5) Platelet Count 171 x10^3/uL (140-400) Neutrophils (%) (Auto) 61 % (31-73) Lymphocytes (%) (Auto) 23 % (24-48) Monocytes (%) (Auto) 13 % (0-9) Eosinophils (%) (Auto) 2 % (0-3) Basophils (%) (Auto) 1 % (0-3) Neutrophils # (Auto) 4.6 x10^3uL (1.8-7.7) Lymphocytes # (Auto) 1.7 x10^3/uL (1.0-4.8) Monocytes # (Auto) 1.0 x10^3/uL (0.0-1.1) Eosinophils # (Auto) 0.1 x10^3/uL (0.0-0.7) Basophils # (Auto) 0.1 x10^3/uL (0.0-0.2) Prothrombin Time 12.5 SEC (11.7-14.0) Prothromb Time International Ratio 1.0 (0.8-1.1) D-Dimer (Marga) 0.61 ug/mlFEU (0.00-0.50) Sodium Level 139 mmol/L (136-145) Potassium Level 4.0 mmol/L (3.5-5.1) Chloride Level 104 mmol/L (98-107) Carbon Dioxide Level 24 mmol/L (21-32) Anion Gap 11 (6-14) Blood Urea Nitrogen 20 mg/dL (8-26) Creatinine 1.1 mg/dL (0.7-1.3) Estimated GFR (Cockcroft-Gault) 67.4 BUN/Creatinine Ratio 18 (6-20) Glucose Level 197 mg/dL (70-99) Lactic Acid Level 2.1 mmol/L (0.4-2.0) Calcium Level 9.7 mg/dL (8.5-10.1) Magnesium Level 1.9 mg/dL (1.8-2.4) Total Bilirubin 0.5 mg/dL (0.2-1.0) Aspartate Amino Transf (AST/SGOT) 23 U/L (15-37) Alanine Aminotransferase (ALT/SGPT) 36 U/L (16-63) Alkaline Phosphatase 125 U/L (46-116) Creatine Kinase 112 U/L (39-308) Troponin I Quantitative < 0.017 ng/mL (0.000-0.055) BX-Uhh-O-Type Natriuretic Peptide 448 pg/mL (0-124) Total Protein 7.7 g/dL (6.4-8.2) Albumin 3.6 g/dL (3.4-5.0) Albumin/Globulin Ratio 0.9 (1.0-1.7) Thyroid Stimulating Hormone (TSH) 1.577 uIU/mL (0.358-3.74) Urine Collection Type Unknown Urine Color Zoë Urine Clarity Clear Urine pH 5.5 Urine Specific [place] >=1.030 Urine Protein 30 mg/dL (NEG-TRACE) Urine Glucose (UA) 100 mg/dL (NEG) Urine Ketones (Stick) Negative mg/dL (NEG) Urine Blood Negative (NEG) Urine Nitrite Negative (NEG) Urine Bilirubin Small (NEG) Urine Urobilinogen Dipstick 1.0 mg/dL (0.2 mg/dL) Urine Leukocyte Esterase Negative (NEG) Urine RBC Occ /HPF (0-2) Urine WBC 1-4 /HPF (0-4) Urine Squamous Epithelial Cells Few /LPF Urine Bacteria Few /HPF (0-FEW) Urine Mucus Mod /LPF Urine Opiates Screen Neg (NEG) Urine Methadone Screen Neg (NEG) Urine Barbiturates Neg (NEG) Urine Phencyclidine Screen Neg (NEG) Urine Amphetamine/Methamphetamine Neg (NEG) Urine Benzodiazepines Screen Neg (NEG) Urine Cocaine Screen Neg (NEG) Urine Cannabinoids Screen Pos (NEG) Urine Ethyl Alcohol Neg (NEG) Laboratory Tests Test 11/28/17 10:05 11/28/17 10:50 White Blood Count 7.5 x10^3/uL (4.0-11.0) Red Blood Count 5.46 x10^6/uL (4.30-5.70) Hemoglobin 16.9 g/dL (13.0-17.5) Hematocrit 48.5 % (39.0-53.0) Mean Corpuscular Volume 89 fL (79-100) Mean Corpuscular Hemoglobin 31 pg (25-35) Mean Corpuscular Hemoglobin Concent 35 g/dL (31-37) Red Cell Distribution Width 13.9 % (11.5-14.5) Platelet Count 171 x10^3/uL (140-400) Neutrophils (%) (Auto) 61 % (31-73) Lymphocytes (%) (Auto) 23 % (24-48) Monocytes (%) (Auto) 13 % (0-9) Eosinophils (%) (Auto) 2 % (0-3) Basophils (%) (Auto) 1 % (0-3) Neutrophils # (Auto) 4.6 x10^3uL (1.8-7.7) Lymphocytes # (Auto) 1.7 x10^3/uL (1.0-4.8) Monocytes # (Auto) 1.0 x10^3/uL (0.0-1.1) Eosinophils # (Auto) 0.1 x10^3/uL (0.0-0.7) Basophils # (Auto) 0.1 x10^3/uL (0.0-0.2) Prothrombin Time 12.5 SEC (11.7-14.0) Prothromb Time International Ratio 1.0 (0.8-1.1) D-Dimer (Marga) 0.61 ug/mlFEU (0.00-0.50) Sodium Level 139 mmol/L (136-145) Potassium Level 4.0 mmol/L (3.5-5.1) Chloride Level 104 mmol/L (98-107) Carbon Dioxide Level 24 mmol/L (21-32) Anion Gap 11 (6-14) Blood Urea Nitrogen 20 mg/dL (8-26) Creatinine 1.1 mg/dL (0.7-1.3) Estimated GFR (Cockcroft-Gault) 67.4 BUN/Creatinine Ratio 18 (6-20) Glucose Level 197 mg/dL (70-99) Lactic Acid Level 2.1 mmol/L (0.4-2.0) Calcium Level 9.7 mg/dL (8.5-10.1) Magnesium Level 1.9 mg/dL (1.8-2.4) Total Bilirubin 0.5 mg/dL (0.2-1.0) Aspartate Amino Transf (AST/SGOT) 23 U/L (15-37) Alanine Aminotransferase (ALT/SGPT) 36 U/L (16-63) Alkaline Phosphatase 125 U/L (46-116) Creatine Kinase 112 U/L (39-308) Troponin I Quantitative < 0.017 ng/mL (0.000-0.055) UT-Azf-D-Type Natriuretic Peptide 448 pg/mL (0-124) Total Protein 7.7 g/dL (6.4-8.2) Albumin 3.6 g/dL (3.4-5.0) Albumin/Globulin Ratio 0.9 (1.0-1.7) Thyroid Stimulating Hormone (TSH) 1.577 uIU/mL (0.358-3.74) Urine Collection Type Unknown Urine Color Zoë Urine Clarity Clear Urine pH 5.5 Urine Specific [place] >=1.030 Urine Protein 30 mg/dL (NEG-TRACE) Urine Glucose (UA) 100 mg/dL (NEG) Urine Ketones (Stick) Negative mg/dL (NEG) Urine Blood Negative (NEG) Urine Nitrite Negative (NEG) Urine Bilirubin Small (NEG) Urine Urobilinogen Dipstick 1.0 mg/dL (0.2 mg/dL) Urine Leukocyte Esterase Negative (NEG) Urine RBC Occ /HPF (0-2) Urine WBC 1-4 /HPF (0-4) Urine Squamous Epithelial Cells Few /LPF Urine Bacteria Few /HPF (0-FEW) Urine Mucus Mod /LPF Urine Opiates Screen Neg (NEG) Urine Methadone Screen Neg (NEG) Urine Barbiturates Neg (NEG) Urine Phencyclidine Screen Neg (NEG) Urine Amphetamine/Methamphetamine Neg (NEG) Urine Benzodiazepines Screen Neg (NEG) Urine Cocaine Screen Neg (NEG) Urine Cannabinoids Screen Pos (NEG) Urine Ethyl Alcohol Neg (NEG) Images Images CT HEAD INDICATION: DIZZINESS, SYNCOPE, EXTREMITY NUMBNESS, TINGLING, H/O STROKE. CVA 2005 COMPARISON: None Available. TECHNIQUE: 5 mm contiguous axial images were obtained from the skull base to the vertex in both bone and soft tissue algorithm. Exposure: One or more of the following individualized dose reduction techniques were utilized for this examination: 1. Automated exposure control 2. Adjustment of the mA and/or kV according to patient size 3. Use of iterative reconstruction technique FINDINGS: Moderate bilateral periventricular white matter hypodensities likely chronic small vessel ischemic disease. No evidence of acute intracranial hemorrhage. No extra-axial fluid collections. No mass effect or midline shift. Ventricular size is appropriate. Basal cisterns are patent. No fractures identified.Taylor-white differentiation is preserved.Globes and orbits are within normal limits. Paranasal sinuses and mastoid air cells are clear. IMPRESSION: No acute intracranial findings. Carotid ultrasound, 11/28/2017: There is mild smooth plaquing at the carotid bifurcations. The bifurcations are located somewhat high limiting evaluation of the internal carotid arteries. The peak systolic velocity in the right internal carotid artery is 80 cm per sec with an end-diastolic velocity of 27 cm/s and an internal carotid to common carotid artery ratio 1.0. The peak systolic velocity in the left internal carotid artery is 114 cm/s with an end-diastolic velocity of 20 cm/s and an internal carotid to common carotid artery ratio 1.2. These Doppler findings do not suggest high-grade stenosis. Antegrade flow is present in both vertebral arteries in the neck. IMPRESSION: Mild atherosclerotic plaquing at both carotid bifurcations with underlying luminal narrowing in the 0-50 percent diameter range bilaterally. Assessment/Plan Assessment/Plan Impression: Presyncope feelings in a patient with known carotid artery hypersensitivity syndrome as well as diabetic neuropathy, undoubtedly with a component of autonomic neuropathy. No evidence of any primary neurological problem such as stroke, cerebrovascular disease, or seizure. Note that he has already had a CT of the head and carotid Doppler studies. Diabetic neuropathy Cervical spondylosis without radiculopathy on EMG Multiple entrapment neuropathies: bilateral carpal tunnel syndrome, left cubital tunnel syndrome, and right Guyon's canal syndrome Recommendations: Agree with cardiology regarding pacemaker check and checking orthostatics. Otherwise no additional neurological studies needed. Thank you for letting me help with the patient's care. DENIA PAGAN MD Nov 28, 2017 15:24
[2017-11-28] MEDS ORDERED: DULO60CA6 PO (15:28)
[2017-11-28] MEDS ORDERED: OMEP20TA63 PO (15:28)
[2017-11-28] MEDS ORDERED: ASPI325T8 PO (15:28)
[2017-11-28] MEDS ORDERED: GABA-586 PO (15:28)
[2017-11-28] MEDS ORDERED: TAMS0.4C2 PO (15:28)
[2017-11-28] MEDS ORDERED: OXYC10TA (15:29)
--- NOTE | 2017-11-28 15:44 | RAD ---
PQRS Compliance Statement: One or more of the following individualized dose reduction techniques were utilized for this examination: 1. Automated exposure control 2. Adjustment of the mA and/or kV according to patient size 3. Use of iterative reconstruction technique Neck CT without contrast: 11/28/2017 Indication: Adenopathy.. Technique: Multiple axial images were obtained through the neck without contrast. Coronal and sagittal reformats are provided. Comparison: CT neck October 08, 2016 Findings: The visualized brain parenchyma appears intact. The skull base is normal. Paranasal sinuses are well aerated. Bilateral lens replacement noted. Otherwise, the orbits are normal. The sella turcica and cavernous sinus regions appear intact. Atherosclerotic calcination's are noted involving the cavernous segments of internal carotid arteries. The mastoid air cells are normal. The fossa of Rosenmuller is normal. The parotid space contents and industrial ecologist space contents appear intact. The parapharyngeal spaces are normal. The submandibular and sublingual space contents appear intact. The epiglottis, aryepiglottic folds, and piriform sinuses are normal. The vallecula appears normal. The larynx and trachea are normal. The thyroid lobes appear intact. The carotid space contents are normal. There is no deep cervical chain adenopathy observed. The jugulodigastric regions appear intact. There is a right level 2b cervical lymph node measuring 8 mm (series 2, image 47). There is a 7 mm right level 5 cervical lymph node (series 2, image 57), previously measuring 4 mm. The perivertebral space contents are normal. The supraclavicular regions appear intact. The visualized mediastinum is normal. The visualized lungs appear intact. There is moderate cervical spondylosis with at least mild spinal canal stenosis from C3-C4 through C6-C7. Impression: Interval increase in a right level IIb and level V lymph node. These findings are not pathologically enlarged. Findings are likely reactive. There is moderate cervical spondylosis. Electronically signed by: Sapphire Alvarez MD (11/28/2017 3:40 PM) [id number]
--- NOTE | 2017-11-28 15:45 | PDOC2 ---
CARDIAC CONSULT DATE OF CONSULT Date of Consult DATE: 11/28/17 TIME: 15:35 REASON FOR CONSULT Reason for Consult: syncope REFERRING PHYSICIAN Referring Physician: LUCÍA SOURCE Source: Chart review, Patient HISTORY OF PRESENT ILLNESS HISTORY OF PRESENT ILLNESS 62 year old male with known history of carotid artery hypersensitivity with PPM implantation about 3 years ago. Reports dizziness for the last 2 days with increase in symptoms about 0300 today. Had BM and became dizzy walking to kitchen; then became so weak he could not get out of bed. Reports symptoms like he had pre PPM implant. Also with rash posterior cervical neck; right shoulder and right upper chest region; denies recent change in soap or medications. EKG ST; troponin not consistent with AMI; NT-proBNP not consistent with acute HF and lactate level 2.1. 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 Endocrine: Diabetes Dermatology: No pertinent hx PAST SURGICAL HISTORY Past Surgical History: Pacemaker (Biotronik DDD), Appendectomy, Cholecystectomy , Hernia Repair, Other (back X 3; carpal tunnel release bilaterally; prostate surgery; colon repair after perf) SOCIAL HISTORY Smoke: 1 pack per day (since a child) ALCOHOL: occassional Drugs: None CURRENT MEDICATIONS CURRENT MEDICATIONS Current Medications Medications (Trade) Dose Ordered Sig/Aretha Route PRN Reason Start Time Stop Time Status Last Admin Dose Admin Albuterol/ Ipratropium (Duoneb) 3 ml 1X ONCE NEB 11/28/17 10:00 11/28/17 10:01 DC 11/28/17 10:01 Sodium Chloride 1,000 ml @ 1,000 mls/hr 1X ONCE IV 11/28/17 11:30 11/28/17 12:29 DC 11/28/17 11:51 Iohexol (Omnipaque 300 Mg/ml) 75 ml 1X ONCE IV 11/28/17 11:45 11/28/17 11:46 DC 11/28/17 12:00 Albuterol/ Ipratropium (Duoneb) 3 ml 1X ONCE NEB 11/28/17 13:00 11/28/17 13:01 DC 11/28/17 13:48 Ceftriaxone Sodium 50 ml @ 100 mls/hr 1X ONCE IV 11/28/17 14:00 11/28/17 14:29 DC 11/28/17 13:56 Sodium Chloride 1,000 ml @ 1,000 mls/hr 1X ONCE IV 11/28/17 13:45 11/28/17 14:44 DC 11/28/17 13:39 Morphine Sulfate (Morphine Sulfate) 2 mg PRN Q2HR PRN IV MODERATE TO SEVERE PAIN 11/28/17 13:45 11/28/17 15:11 ALLERGIES ALLERGIES: Coded Allergies: No Known Drug Allergies (Unverified , 01/29/15) ROS General: YES: Fatigue, Malaise PSYCHOLOGICAL ROS: No: Anxiety, Behavioral Disorder, Concentration difficultie , Decreased libido, Depression, Disorientation, Hallucinations, Hostility, Irritablity, Memory difficulties, Mood Swings, Obsessive thoughts, Physical abuse, Sexual abuse, Sleep disturbances, Suicidal ideation, Other Eyes: No Blurry vision, No Decreased vision, No Double vision, No Dry eyes, No Excessive tearing, No Eye Pain, No Itchy Eyes, No Loss of vision, No Photophobia , No Scotomata, No Uses contacts, No Uses glasses, No Other HEENT: YES: Hearing change ALLERGY AND IMMUNOLOGY: No: Hives, Insect Bite Sensitivity, Itchy/Watery Eyes, Nasal Congestion, Post Nasal Drip, Seasonal Allergies, Other Hematological and Lymphatic: No: Bleeding Problems, Blood Clots, Blood Transfusions, Brusing, Night Sweats, Pallor, Swollen Lymph Nodes, Other ENDOCRINE: No: Breast Changes, Galactorrhea, Hair Pattern Changes, Hot Flashes , Malaise/lethargy, Mood Swings, Palpitations, Polydipsia/polyuria, Skin Changes , Temperature Intolerance, Unexpected Weight Changes, Other Respiratory: YES: Cough Cardiovascular: No Chest Pain, No Palpitations, No Orthopnea, No Paroxysmal Noc. Dyspnea, No Edema, No Lt Headedness, No Other Gastrointestinal: No Nausea, No Vomiting, No Abdominal Pain, No Diarrhea, No Constipation, No Melena, No Hematochezia, No Other Neurological: Yes Dizziness, Yes Weakness Skin: Yes Rash PHYSICAL EXAM General: Alert, Oriented X3, Cooperative, No acute distress HEENT: Atraumatic, Other (severely hard of hearing) Lungs: Clear to auscultation, Normal air movement Heart: Normal S1, Normal S2, No murmurs Abdomen: Normal bowel sounds, Soft Extremities: No edema Skin: Other (rash as described in HPI) Neuro: Normal speech Psych/Mental Status: Mental status NL, Mood NL MUSCULOSKELETAL: Osteoarthritic changes both hands VITALS VITALS Vital Signs Date Time Temp Pulse Resp B/P (MAP) Pulse Ox O2 Delivery O2 Flow Rate FiO2 11/28/17 14:51 97.9 107 22 142/91 (108) 95 Room Air 97.9 LABS Lab: Laboratory Tests Test 11/28/17 10:05 11/28/17 10:50 White Blood Count 7.5 x10^3/uL (4.0-11.0) Red Blood Count 5.46 x10^6/uL (4.30-5.70) Hemoglobin 16.9 g/dL (13.0-17.5) Hematocrit 48.5 % (39.0-53.0) Mean Corpuscular Volume 89 fL (79-100) Mean Corpuscular Hemoglobin 31 pg (25-35) Mean Corpuscular Hemoglobin Concent 35 g/dL (31-37) Red Cell Distribution Width 13.9 % (11.5-14.5) Platelet Count 171 x10^3/uL (140-400) Neutrophils (%) (Auto) 61 % (31-73) Lymphocytes (%) (Auto) 23 % (24-48) Monocytes (%) (Auto) 13 % (0-9) Eosinophils (%) (Auto) 2 % (0-3) Basophils (%) (Auto) 1 % (0-3) Neutrophils # (Auto) 4.6 x10^3uL (1.8-7.7) Lymphocytes # (Auto) 1.7 x10^3/uL (1.0-4.8) Monocytes # (Auto) 1.0 x10^3/uL (0.0-1.1) Eosinophils # (Auto) 0.1 x10^3/uL (0.0-0.7) Basophils # (Auto) 0.1 x10^3/uL (0.0-0.2) Prothrombin Time 12.5 SEC (11.7-14.0) Prothromb Time International Ratio 1.0 (0.8-1.1) D-Dimer (Marga) 0.61 ug/mlFEU (0.00-0.50) Sodium Level 139 mmol/L (136-145) Potassium Level 4.0 mmol/L (3.5-5.1) Chloride Level 104 mmol/L (98-107) Carbon Dioxide Level 24 mmol/L (21-32) Anion Gap 11 (6-14) Blood Urea Nitrogen 20 mg/dL (8-26) Creatinine 1.1 mg/dL (0.7-1.3) Estimated GFR (Cockcroft-Gault) 67.4 BUN/Creatinine Ratio 18 (6-20) Glucose Level 197 mg/dL (70-99) Lactic Acid Level 2.1 mmol/L (0.4-2.0) Calcium Level 9.7 mg/dL (8.5-10.1) Magnesium Level 1.9 mg/dL (1.8-2.4) Total Bilirubin 0.5 mg/dL (0.2-1.0) Aspartate Amino Transf (AST/SGOT) 23 U/L (15-37) Alanine Aminotransferase (ALT/SGPT) 36 U/L (16-63) Alkaline Phosphatase 125 U/L (46-116) Creatine Kinase 112 U/L (39-308) Troponin I Quantitative < 0.017 ng/mL (0.000-0.055) YD-Lpq-O-Type Natriuretic Peptide 448 pg/mL (0-124) Total Protein 7.7 g/dL (6.4-8.2) Albumin 3.6 g/dL (3.4-5.0) Albumin/Globulin Ratio 0.9 (1.0-1.7) Thyroid Stimulating Hormone (TSH) 1.577 uIU/mL (0.358-3.74) Urine Collection Type Unknown Urine Color Zoë Urine Clarity Clear Urine pH 5.5 Urine Specific [place] >=1.030 Urine Protein 30 mg/dL (NEG-TRACE) Urine Glucose (UA) 100 mg/dL (NEG) Urine Ketones (Stick) Negative mg/dL (NEG) Urine Blood Negative (NEG) Urine Nitrite Negative (NEG) Urine Bilirubin Small (NEG) Urine Urobilinogen Dipstick 1.0 mg/dL (0.2 mg/dL) Urine Leukocyte Esterase Negative (NEG) Urine RBC Occ /HPF (0-2) Urine WBC 1-4 /HPF (0-4) Urine Squamous Epithelial Cells Few /LPF Urine Bacteria Few /HPF (0-FEW) Urine Mucus Mod /LPF Urine Opiates Screen Neg (NEG) Urine Methadone Screen Neg (NEG) Urine Barbiturates Neg (NEG) Urine Phencyclidine Screen Neg (NEG) Urine Amphetamine/Methamphetamine Neg (NEG) Urine Benzodiazepines Screen Neg (NEG) Urine Cocaine Screen Neg (NEG) Urine Cannabinoids Screen Pos (NEG) Urine Ethyl Alcohol Neg (NEG) IMAGES IMAGES CTA chest: Findings: Pulmonary arteries are adequately opacified. There is no evidence of pulmonary embolism. There is left chest dual-chamber pacer. With left-sided injection there is opacification of multiple left chest wall collaterals and the azygos system raising possibility of impaired central venous return. There is no thoracic aortic dissection. There are subcentimeter mediastinal lymph nodes. There is mild right hilar adenopathy, unchanged. There is coronary artery disease. Cardiac size normal, no pericardial effusion. The central airways are patent. Mild dependent atelectasis in the lower lobes. There is no lung consolidation. No pleural effusion. Cholecystectomy. Visualized upper abdomen is unremarkable. Bones unremarkable. IMPRESSION: There is no CT evidence of pulmonary embolus. EKG EKG ST ECHOCARDIOGRAM ECHOCARDIOGRAM 11/10/2017: TTE: <Conclusion> Technically difficult study. Optison echo contrast used. Abnormal septal motion probably from paced rhythm. The Ejection Fraction is estimated at 40-45%. Pacer wire noted in right atrium and right ventricle. Doppler and Color-flow revealed trace mitral regurgitation. There is no evidence of significant pericardial effusion. ASSESSMENT/PLAN ASSESSMENT/PLAN 1. dizziness/near syncope --known carotid artery hypersensitivity with same symptoms --interrogate PPM --check orthostatics --consider gentle hydration 2. CAD with prior PCI/stent to RCA --no anginal symptoms --continue medical management --recent echo with LVEF 40-45% 3. HTN --control with meds 4. HLD --continue statin therapy 5. COPD, likely acute exacerbation --defer to pulm 6. DM, II --defer to primary service 7. substance abuse --continue smoking - no desire to quit --denies illicit drug use; UDS + THC 8. elevated lactate level --? sepsis NCIHELLE HEMPHILL [employer] Nov 28, 2017 15:45
--- NOTE | 2017-11-28 15:47 | CONS ---
DATE OF CONSULTATION: ATTENDING PHYSICIAN: Dr. Salomon. REASON FOR CONSULTATION: COPD. HISTORY OF PRESENT ILLNESS: The patient is a 62-year-old male who has smoked all his life up to 3 packs per day, now down to 1 pack per day. He has CAD. He came to the hospital ER after he initially had some rash to the back of the neck appeared and then developed some swelling in his neck on the right side. The states that he has chronic cough because of his tobacco use. ER note also suggests that he had some dizziness and had a syncopal episode. The patient is not on home oxygen. No hemoptysis. No chest pains. No nausea, vomiting or diarrhea. No recent contacts with bug bite. A CT angiogram was performed and was reviewed by me. There was no evidence of any pulmonary embolism. I have been asked to see him for further evaluation. PAST MEDICAL HISTORY: Significant for history of CAD, hypertension, history of hyperlipidemia and suspected COPD, could be severe Underlying obesity, history of pneumonia, history of CVA and peripheral neuropathy, GERD, history of cirrhosis, depression, RA, BPH and diabetes. PAST SURGICAL HISTORY: Pacemaker, appendectomy, cholecystectomy and hernia repair. FAMILY HISTORY: Hypertension. SOCIAL HISTORY: One pack per day most of his life. He has been smoking. He used to smoke 3 packs a day. REVIEW OF SYSTEMS: Twelve-point system obtained. Pertinent positives discussed in my history of present illness, otherwise noncontributory. All systems that were negative were reviewed as well. PHYSICAL EXAMINATION: VITAL SIGNS: Blood pressure 142/91, afebrile, pulse ox 95% on room air. NECK: Supple. He has got a rash in the back of the neck and also palpable lymph node on the right side of the neck. LUNGS: Diminished breath sounds. No wheezing. CARDIOVASCULAR: Regular rate and rhythm. ABDOMEN: Soft, obese. EXTREMITIES: With signs of venous stasis. LABORATORY DATA: Reviewed. White cell count 7.5, hemoglobin 16.9 and platelets are 171. BUN is 20 and a creatinine of 1.1. IMPRESSION: 1. Suspected severe chronic obstructive pulmonary disease. He has tobacco use all his life up to 3 packs per day and continues to smoke 1 pack per day. 2. Skin rash and also palpable lymph node on the neck. We will obtain noncontrast CT chest. 3. Underlying obesity. 4. History of coronary artery disease. 5. Syncopal episode. No evidence of any pulmonary embolism by CT angiogram. Consider cardiac evaluation. RECOMMENDATIONS: 1. Smoking cessation counseling provided. The patient does not appear to be interested in quitting tobacco. 2. Continue bronchodilators. 3. PFTs as an outpatient. 4. Noncontrast CT neck to assess for any adenopathy in the neck We will follow along with you. KAY KNOX MD DR: ITALIA/nts JOB#: [id number] / [id number]
[2017-11-28] MEDS: diphenhydrAMINE HCL 25 MG CAPSULE PO PRN (15:58)
[2017-11-28] MEDS: traMADol 50 MG TABLET PO PRN (15:58)
[2017-11-28] MEDS: IPRATRPIUM/ALBUTEROL 0.5/2.5MG 3 ML NEBU. NEB SCH ×2 (16:14→20:06)
[2017-11-28] MEDS: INSULIN LISPRO 300 UNITS/3 ML INSULN.PEN. SQ SCH (17:00)
--- NOTE | 2017-11-28 17:07 | PDOC ---
SUBJECTIVE Subjective Monday, about 48 hours ago, developed itchy painful patch nape of neck. Over next 2 days, developed additional itchy painful patches on right side upper back and extending into scalp. OBJECTIVE Vital Signs Vital Signs Date Time Temp Pulse Resp B/P (MAP) Pulse Ox O2 Delivery O2 Flow Rate FiO2 11/28/17 16:14 95 Room Air 11/28/17 14:51 97.9 107 22 142/91 (108) 95 Room Air 97.9 11/28/17 13:48 95 Room Air 11/28/17 13:40 96 18 137/89 (105) 95 Room Air 11/28/17 12:54 105 20 145/90 (108) 96 Room Air 11/28/17 12:09 103 24 148/98 (115) 97 Room Air 11/28/17 11:20 97.9 103 22 107/61 (76) 97 Room Air 97.9 11/28/17 10:03 96 Room Air 11/28/17 09:41 98.1 116 18 146/93 (110) 96 Room Air 98.1 PHYSICAL EXAM Physical Exam "islands" of erythema extending from nape of neck to right upper back extending along shoulder probably covering more than 1 dermatome. Not classically blistered. ASSESSMENT/PLAN Assessment/Plan Herpes zoster. Because it is within 48 hours, Valtrex 1 gm tid 7 days may abort possibility of post herpes neuralgia. Culture for Zoster by PCR done. He needs analgesia. Will find him some literature. COMMENT Lab Laboratory Tests Test 11/28/17 10:05 11/28/17 10:50 White Blood Count 7.5 x10^3/uL (4.0-11.0) Red Blood Count 5.46 x10^6/uL (4.30-5.70) Hemoglobin 16.9 g/dL (13.0-17.5) Hematocrit 48.5 % (39.0-53.0) Mean Corpuscular Volume 89 fL (79-100) Mean Corpuscular Hemoglobin 31 pg (25-35) Mean Corpuscular Hemoglobin Concent 35 g/dL (31-37) Red Cell Distribution Width 13.9 % (11.5-14.5) Platelet Count 171 x10^3/uL (140-400) Neutrophils (%) (Auto) 61 % (31-73) Lymphocytes (%) (Auto) 23 % (24-48) Monocytes (%) (Auto) 13 % (0-9) Eosinophils (%) (Auto) 2 % (0-3) Basophils (%) (Auto) 1 % (0-3) Neutrophils # (Auto) 4.6 x10^3uL (1.8-7.7) Lymphocytes # (Auto) 1.7 x10^3/uL (1.0-4.8) Monocytes # (Auto) 1.0 x10^3/uL (0.0-1.1) Eosinophils # (Auto) 0.1 x10^3/uL (0.0-0.7) Basophils # (Auto) 0.1 x10^3/uL (0.0-0.2) Prothrombin Time 12.5 SEC (11.7-14.0) Prothromb Time International Ratio 1.0 (0.8-1.1) D-Dimer (Marga) 0.61 ug/mlFEU (0.00-0.50) Sodium Level 139 mmol/L (136-145) Potassium Level 4.0 mmol/L (3.5-5.1) Chloride Level 104 mmol/L (98-107) Carbon Dioxide Level 24 mmol/L (21-32) Anion Gap 11 (6-14) Blood Urea Nitrogen 20 mg/dL (8-26) Creatinine 1.1 mg/dL (0.7-1.3) Estimated GFR (Cockcroft-Gault) 67.4 BUN/Creatinine Ratio 18 (6-20) Glucose Level 197 mg/dL (70-99) Lactic Acid Level 2.1 mmol/L (0.4-2.0) Calcium Level 9.7 mg/dL (8.5-10.1) Magnesium Level 1.9 mg/dL (1.8-2.4) Total Bilirubin 0.5 mg/dL (0.2-1.0) Aspartate Amino Transf (AST/SGOT) 23 U/L (15-37) Alanine Aminotransferase (ALT/SGPT) 36 U/L (16-63) Alkaline Phosphatase 125 U/L (46-116) Creatine Kinase 112 U/L (39-308) Troponin I Quantitative < 0.017 ng/mL (0.000-0.055) PD-Gzo-V-Type Natriuretic Peptide 448 pg/mL (0-124) Total Protein 7.7 g/dL (6.4-8.2) Albumin 3.6 g/dL (3.4-5.0) Albumin/Globulin Ratio 0.9 (1.0-1.7) Thyroid Stimulating Hormone (TSH) 1.577 uIU/mL (0.358-3.74) Urine Collection Type Unknown Urine Color Zoë Urine Clarity Clear Urine pH 5.5 Urine Specific [place] >=1.030 Urine Protein 30 mg/dL (NEG-TRACE) Urine Glucose (UA) 100 mg/dL (NEG) Urine Ketones (Stick) Negative mg/dL (NEG) Urine Blood Negative (NEG) Urine Nitrite Negative (NEG) Urine Bilirubin Small (NEG) Urine Urobilinogen Dipstick 1.0 mg/dL (0.2 mg/dL) Urine Leukocyte Esterase Negative (NEG) Urine RBC Occ /HPF (0-2) Urine WBC 1-4 /HPF (0-4) Urine Squamous Epithelial Cells Few /LPF Urine Bacteria Few /HPF (0-FEW) Urine Mucus Mod /LPF Urine Opiates Screen Neg (NEG) Urine Methadone Screen Neg (NEG) Urine Barbiturates Neg (NEG) Urine Phencyclidine Screen Neg (NEG) Urine Amphetamine/Methamphetamine Neg (NEG) Urine Benzodiazepines Screen Neg (NEG) Urine Cocaine Screen Neg (NEG) Urine Cannabinoids Screen Pos (NEG) Urine Ethyl Alcohol Neg (NEG) KRISTIE LITTLE MD Nov 28, 2017 17:07
[2017-11-28] MEDS: oxyCODONE/APAP 5/325 1 TAB TABLET PO PRN (17:36)
[2017-11-28 19:00] VITALS: BP 129/94
[2017-11-28] MEDS ORDERED: INSU200I4 SQ (19:53)
[2017-11-28] MEDS: ASPIRIN 325 MG TABLET PO SCH (20:39)
[2017-11-28] MEDS: GABAPENTIN 300 MG CAPSULE. PO SCH (20:39)
[2017-11-28] MEDS: PANTOPRAZOLE 40 MG TABLET.DR. PO SCH (20:39)
[2017-11-28] MEDS: valACYclovir 500 MG TABLET. PO SCH (20:39)
[2017-11-28] MEDS: TRIAMCINOLONE ACETONIDE 0.1% TOPICAL CREAM 15GM TUBE. TP SCH (20:40)
[2017-11-28] MEDS: NYSTATIN TOPICAL POWDER 15GM BOTTLE. TP SCH (20:40)
[2017-11-28] MEDS: TAMSULOSIN 0.4 MG CAP.ER.24H. PO SCH (20:40)
[2017-11-28] MEDS: DULoxetine HCL 30 MG CAPSULE.DR PO SCH (20:40)
[2017-11-28] MEDS ORDERED: INSULIN LISPRO 300 UNITS/3 ML INSULN.PEN. SQ ONE (20:45)
[2017-11-28 23:00] VITALS: BP 109/57
[2017-11-28] MEDS: [UNRECOGNIZED DRUG - REMARK] SQ SCH (23:00)
[2017-11-28] MEDS: ALBUTEROL SULFATE 2.5 MG/3 ML NEBU. NEB PRN (23:50)
[2017-11-29] VITALS (8 sets, daily range): BP systolic 103–125; BP diastolic 58–80
[2017-11-29] MEDS ORDERED: PNEUMOCOCCAL VAX SCREEN BY RX. MC ONE
[2017-11-29] MEDS: oxyCODONE/APAP 5/325 1 TAB TABLET PO PRN ×3 (02:22→20:31)
[2017-11-29] MEDS: diphenhydrAMINE HCL 25 MG CAPSULE PO PRN ×2 (02:25→23:11)
[2017-11-29 04:24] LABS: BASO # 0.1 x10^3/uL (0.0-0.2); BASO % 1 % (0-3); EOS # 0.2 x10^3/uL (0.0-0.7); EOS % 2 % (0-3); HEMATOCRIT 42.8 % (39.0-53.0); HEMOGLOBIN 14.5 g/dL (13.0-17.5); LYMPH # 1.4 x10^3/uL (1.0-4.8); LYMPH % 20 % (24-48); MEAN CORPUSCULAR HEMOGLOBIN 30 pg (25-35); MEAN CORPUSCULAR HGB CONC 34 g/dL (31-37); MEAN CORPUSCULAR VOLUME 90 fL (79-100); MONO # 0.8 x10^3/uL (0.0-1.1); MONO % 12 % (0-9); NEUT # 4.8 x10^3uL (1.8-7.7); NEUT % 66 % (31-73); PLATELET COUNT 140 x10^3/uL (140-400); RED BLOOD COUNT 4.78 x10^6/uL (4.30-5.70); RED CELL DISTRIBUTION WIDTH 13.9 % (11.5-14.5); WHITE BLOOD COUNT 7.2 x10^3/uL (4.0-11.0)
[2017-11-29 04:55] LABS: ALBUMIN 2.9 g/dL (3.4-5.0); ALBUMIN/GLOBULIN RATIO 0.9 (1.0-1.7); CALCIUM 8.6 mg/dL (8.5-10.1); CREATININE 1.1 mg/dL (0.7-1.3); GFR 67.4; POTASSIUM 3.7 mmol/L (3.5-5.1); TOTAL BILIRUBIN 0.4 mg/dL (0.2-1.0); TOTAL PROTEIN 6.3 g/dL (6.4-8.2)
[2017-11-29 05:22] LABS: CHOLESTEROL/HDL RATIO 10.3
[2017-11-29] MEDS: IPRATRPIUM/ALBUTEROL 0.5/2.5MG 3 ML NEBU. NEB SCH ×4 (07:30→19:23)
[2017-11-29] MEDS: INSULIN LISPRO 300 UNITS/3 ML INSULN.PEN. SQ SCH ×3 (08:00→17:00)
[2017-11-29] MEDS: DULoxetine HCL 30 MG CAPSULE.DR PO SCH (09:32)
[2017-11-29] MEDS: PANTOPRAZOLE 40 MG TABLET.DR. PO SCH (09:32)
[2017-11-29] MEDS: GABAPENTIN 300 MG CAPSULE. PO SCH ×3 (09:32→20:20)
[2017-11-29] MEDS: valACYclovir 500 MG TABLET. PO SCH ×3 (09:32→20:19)
[2017-11-29] MEDS: ASPIRIN 325 MG TABLET PO SCH (09:32)
[2017-11-29] MEDS: TAMSULOSIN 0.4 MG CAP.ER.24H. PO SCH (09:32)
[2017-11-29] MEDS: [UNRECOGNIZED DRUG - REMARK] SQ SCH ×2 (09:35→20:24)
[2017-11-29] MEDS: NYSTATIN TOPICAL POWDER 15GM BOTTLE. TP SCH ×2 (09:37→20:21)
[2017-11-29] MEDS: TRIAMCINOLONE ACETONIDE 0.1% TOPICAL CREAM 15GM TUBE. TP SCH ×2 (09:50→18:18)
[2017-11-29] MEDS ORDERED: PNEUMOC CONJ VACC 23-VALENT 0.5 ML VIAL. VAX IM ONE (10:30)
--- NOTE | 2017-11-29 11:02 | PDOC ---
PROGRESS NOTES Assessment Problems Medical Problems: (1) COPD (chronic obstructive pulmonary disease) Status: Acute (2) Pre-syncope Status: Acute Presyncope feelings in a patient with known carotid artery hypersensitivity syndrome as well as diabetic neuropathy, undoubtedly with a component of autonomic neuropathy. No evidence of any primary neurological problem such as stroke, cerebrovascular disease, or seizure. Note that he has already had a CT of the head and carotid Doppler studies. Diabetic neuropathy Cervical spondylosis without radiculopathy on EMG Multiple entrapment neuropathies: bilateral carpal tunnel syndrome, left cubital tunnel syndrome, and right Guyon's canal syndrome Plan Agree with cardiology regarding pacemaker check and checking orthostatics. Orthostatics have not been done yet, I sent another order Otherwise no additional neurological studies needed. Subjective Still feels a little dizzy Objective Vital Signs Date Time Temp Pulse Resp B/P (MAP) Pulse Ox O2 Delivery O2 Flow Rate FiO2 11/29/17 10:44 97.9 104 22 120/74 (89) 96 Nasal Cannula 2.0 97.9 Intake and Output 11/29/17 06:59 Intake Total 1580 ml Output Total 350 ml Balance 1230 ml Intake Oral 580 ml IV Total 1000 ml Output Urine Total 350 ml # Voids 1 PHYSICAL EXAM Alert. Oriented to time, place and person. PERRL. EOMI. CN: no focal findings. Muscle tone: normal. Muscle strength: 5/5 DTR: 0+ Plantar reflex: flexor Gait: not examined in bed. Sensory exam: stocking loss No cerebellar signs elicited. Review of Relevant I have reviewed the following items bud (where applicable) has been applied. Labs Laboratory Tests Test 11/28/17 10:05 11/28/17 10:50 11/28/17 19:10 11/28/17 20:16 White Blood Count 7.5 x10^3/uL (4.0-11.0) Red Blood Count 5.46 x10^6/uL (4.30-5.70) Hemoglobin 16.9 g/dL (13.0-17.5) Hematocrit 48.5 % (39.0-53.0) Mean Corpuscular Volume 89 fL (79-100) Mean Corpuscular Hemoglobin 31 pg (25-35) Mean Corpuscular Hemoglobin Concent 35 g/dL (31-37) Red Cell Distribution Width 13.9 % (11.5-14.5) Platelet Count 171 x10^3/uL (140-400) Neutrophils (%) (Auto) 61 % (31-73) Lymphocytes (%) (Auto) 23 % (24-48) Monocytes (%) (Auto) 13 % (0-9) Eosinophils (%) (Auto) 2 % (0-3) Basophils (%) (Auto) 1 % (0-3) Neutrophils # (Auto) 4.6 x10^3uL (1.8-7.7) Lymphocytes # (Auto) 1.7 x10^3/uL (1.0-4.8) Monocytes # (Auto) 1.0 x10^3/uL (0.0-1.1) Eosinophils # (Auto) 0.1 x10^3/uL (0.0-0.7) Basophils # (Auto) 0.1 x10^3/uL (0.0-0.2) Prothrombin Time 12.5 SEC (11.7-14.0) Prothromb Time International Ratio 1.0 (0.8-1.1) D-Dimer (Marga) 0.61 ug/mlFEU (0.00-0.50) Sodium Level 139 mmol/L (136-145) Potassium Level 4.0 mmol/L (3.5-5.1) Chloride Level 104 mmol/L (98-107) Carbon Dioxide Level 24 mmol/L (21-32) Anion Gap 11 (6-14) Blood Urea Nitrogen 20 mg/dL (8-26) Creatinine 1.1 mg/dL (0.7-1.3) Estimated GFR (Cockcroft-Gault) 67.4 BUN/Creatinine Ratio 18 (6-20) Glucose Level 197 mg/dL (70-99) Lactic Acid Level 2.1 mmol/L (0.4-2.0) Calcium Level 9.7 mg/dL (8.5-10.1) Magnesium Level 1.9 mg/dL (1.8-2.4) Total Bilirubin 0.5 mg/dL (0.2-1.0) Aspartate Amino Transf (AST/SGOT) 23 U/L (15-37) Alanine Aminotransferase (ALT/SGPT) 36 U/L (16-63) Alkaline Phosphatase 125 U/L (46-116) Creatine Kinase 112 U/L (39-308) Troponin I Quantitative < 0.017 ng/mL (0.000-0.055) < 0.017 ng/mL (0.000-0.055) GT-Nhg-G-Type Natriuretic Peptide 448 pg/mL (0-124) Total Protein 7.7 g/dL (6.4-8.2) Albumin 3.6 g/dL (3.4-5.0) Albumin/Globulin Ratio 0.9 (1.0-1.7) Thyroid Stimulating Hormone (TSH) 1.577 uIU/mL (0.358-3.74) Urine Collection Type Unknown Urine Color Zoë Urine Clarity Clear Urine pH 5.5 Urine Specific Monson >=1.030 Urine Protein 30 mg/dL (NEG-TRACE) Urine Glucose (UA) 100 mg/dL (NEG) Urine Ketones (Stick) Negative mg/dL (NEG) Urine Blood Negative (NEG) Urine Nitrite Negative (NEG) Urine Bilirubin Small (NEG) Urine Urobilinogen Dipstick 1.0 mg/dL (0.2 mg/dL) Urine Leukocyte Esterase Negative (NEG) Urine RBC Occ /HPF (0-2) Urine WBC 1-4 /HPF (0-4) Urine Squamous Epithelial Cells Few /LPF Urine Bacteria Few /HPF (0-FEW) Urine Mucus Mod /LPF Urine Opiates Screen Neg (NEG) Urine Methadone Screen Neg (NEG) Urine Barbiturates Neg (NEG) Urine Phencyclidine Screen Neg (NEG) Urine Amphetamine/Methamphetamine Neg (NEG) Urine Benzodiazepines Screen Neg (NEG) Urine Cocaine Screen Neg (NEG) Urine Cannabinoids Screen Pos (NEG) Urine Ethyl Alcohol Neg (NEG) Glucose (Fingerstick) 301 mg/dL (70-99) Test 11/29/17 03:05 11/29/17 07:51 White Blood Count 7.2 x10^3/uL (4.0-11.0) Red Blood Count 4.78 x10^6/uL (4.30-5.70) Hemoglobin 14.5 g/dL (13.0-17.5) Hematocrit 42.8 % (39.0-53.0) Mean Corpuscular Volume 90 fL (79-100) Mean Corpuscular Hemoglobin 30 pg (25-35) Mean Corpuscular Hemoglobin Concent 34 g/dL (31-37) Red Cell Distribution Width 13.9 % (11.5-14.5) Platelet Count 140 x10^3/uL (140-400) Neutrophils (%) (Auto) 66 % (31-73) Lymphocytes (%) (Auto) 20 % (24-48) Monocytes (%) (Auto) 12 % (0-9) Eosinophils (%) (Auto) 2 % (0-3) Basophils (%) (Auto) 1 % (0-3) Neutrophils # (Auto) 4.8 x10^3uL (1.8-7.7) Lymphocytes # (Auto) 1.4 x10^3/uL (1.0-4.8) Monocytes # (Auto) 0.8 x10^3/uL (0.0-1.1) Eosinophils # (Auto) 0.2 x10^3/uL (0.0-0.7) Basophils # (Auto) 0.1 x10^3/uL (0.0-0.2) Sodium Level 142 mmol/L (136-145) Potassium Level 3.7 mmol/L (3.5-5.1) Chloride Level 108 mmol/L (98-107) Carbon Dioxide Level 25 mmol/L (21-32) Anion Gap 9 (6-14) Blood Urea Nitrogen 22 mg/dL (8-26) Creatinine 1.1 mg/dL (0.7-1.3) Estimated GFR (Cockcroft-Gault) 67.4 BUN/Creatinine Ratio 20 (6-20) Glucose Level 94 mg/dL (70-99) Calcium Level 8.6 mg/dL (8.5-10.1) Total Bilirubin 0.4 mg/dL (0.2-1.0) Aspartate Amino Transf (AST/SGOT) 21 U/L (15-37) Alanine Aminotransferase (ALT/SGPT) 31 U/L (16-63) Alkaline Phosphatase 95 U/L (46-116) Total Protein 6.3 g/dL (6.4-8.2) Albumin 2.9 g/dL (3.4-5.0) Albumin/Globulin Ratio 0.9 (1.0-1.7) Triglycerides Level 388 mg/dL (0-150) Cholesterol Level 154 mg/dL (0-200) LDL Cholesterol, Calculated 61 mg/dL (0-100) VLDL Cholesterol, Calculated 78 mg/dL (0-40) Non-HDL Cholesterol Calculated 139 mg/dL (0-129) HDL Cholesterol 15 mg/dL (40-60) Cholesterol/HDL Ratio 10.3 Glucose (Fingerstick) 87 mg/dL (70-99) Laboratory Tests Test 11/28/17 19:10 11/28/17 20:16 11/29/17 03:05 11/29/17 07:51 Troponin I Quantitative < 0.017 ng/mL (0.000-0.055) Glucose (Fingerstick) 301 mg/dL (70-99) 87 mg/dL (70-99) White Blood Count 7.2 x10^3/uL (4.0-11.0) Red Blood Count 4.78 x10^6/uL (4.30-5.70) Hemoglobin 14.5 g/dL (13.0-17.5) Hematocrit 42.8 % (39.0-53.0) Mean Corpuscular Volume 90 fL (79-100) Mean Corpuscular Hemoglobin 30 pg (25-35) Mean Corpuscular Hemoglobin Concent 34 g/dL (31-37) Red Cell Distribution Width 13.9 % (11.5-14.5) Platelet Count 140 x10^3/uL (140-400) Neutrophils (%) (Auto) 66 % (31-73) Lymphocytes (%) (Auto) 20 % (24-48) Monocytes (%) (Auto) 12 % (0-9) Eosinophils (%) (Auto) 2 % (0-3) Basophils (%) (Auto) 1 % (0-3) Neutrophils # (Auto) 4.8 x10^3uL (1.8-7.7) Lymphocytes # (Auto) 1.4 x10^3/uL (1.0-4.8) Monocytes # (Auto) 0.8 x10^3/uL (0.0-1.1) Eosinophils # (Auto) 0.2 x10^3/uL (0.0-0.7) Basophils # (Auto) 0.1 x10^3/uL (0.0-0.2) Sodium Level 142 mmol/L (136-145) Potassium Level 3.7 mmol/L (3.5-5.1) Chloride Level 108 mmol/L (98-107) Carbon Dioxide Level 25 mmol/L (21-32) Anion Gap 9 (6-14) Blood Urea Nitrogen 22 mg/dL (8-26) Creatinine 1.1 mg/dL (0.7-1.3) Estimated GFR (Cockcroft-Gault) 67.4 BUN/Creatinine Ratio 20 (6-20) Glucose Level 94 mg/dL (70-99) Calcium Level 8.6 mg/dL (8.5-10.1) Total Bilirubin 0.4 mg/dL (0.2-1.0) Aspartate Amino Transf (AST/SGOT) 21 U/L (15-37) Alanine Aminotransferase (ALT/SGPT) 31 U/L (16-63) Alkaline Phosphatase 95 U/L (46-116) Total Protein 6.3 g/dL (6.4-8.2) Albumin 2.9 g/dL (3.4-5.0) Albumin/Globulin Ratio 0.9 (1.0-1.7) Triglycerides Level 388 mg/dL (0-150) Cholesterol Level 154 mg/dL (0-200) LDL Cholesterol, Calculated 61 mg/dL (0-100) VLDL Cholesterol, Calculated 78 mg/dL (0-40) Non-HDL Cholesterol Calculated 139 mg/dL (0-129) HDL Cholesterol 15 mg/dL (40-60) Cholesterol/HDL Ratio 10.3 Microbiology 11/28/17 Blood Culture - Preliminary, Resulted NO GROWTH AFTER 1 DAY Medications Current Medications Albuterol/ Ipratropium (Duoneb) 3 ml 1X ONCE NEB Last administered on at 10:01; Start 11/28/17 at 10:00; Stop 11/28/17 at 10:01; Status DC Lidocaine HCl (Lidocaine Pf 2% Vial) 5 ml 1X ONCE IJ ; Start 11/28/17 at 11:30; Stop 11/28/17 at 11:39; Status DC Sodium Chloride 1,000 ml @ 1,000 mls/hr 1X ONCE IV Last administered on at 11:51; Start 11/28/17 at 11:30; Stop 11/28/17 at 12:29; Status DC Iohexol (Omnipaque 300 Mg/ml) 75 ml 1X ONCE IV Last administered on 11/28/17at 12:00; Start 11/28/17 at 11:45; Stop 11/28/17 at 11:46; Status DC Info (CONTRAST GIVEN -- Rx MONITORING) 1 each PRN DAILY PRN MC SEE COMMENTS; Start 11/28/17 at 11:45; Stop 11/30/17 at 11:44 Albuterol/ Ipratropium (Duoneb) 3 ml 1X ONCE NEB Last administered on at 13:48; Start 11/28/17 at 13:00; Stop 11/28/17 at 13:01; Status DC Ondansetron HCl (Zofran) 4 mg PRN Q8HRS PRN IV NAUSEA/VOMITING; Start 11/28/17 at 13:00; Stop 11/28/17 at 13:52; Status DC Morphine Sulfate (Morphine Sulfate) 2 mg PRN Q2HR PRN IV PAIN; Start 11/28/17 at 13:00; Stop 11/28/17 at 13:51; Status DC Acetaminophen (Tylenol) 650 mg PRN Q4HRS PRN PO FEVER; Start 11/28/17 at 13:00; Stop 11/28/17 at 13:51; Status DC Ceftriaxone Sodium 50 ml @ 100 mls/hr 1X ONCE IV Last administered on at 13:56; Start 11/28/17 at 14:00; Stop 11/28/17 at 14:29; Status DC Azithromycin 500 mg/Sodium Chloride 250 ml @ 250 mls/hr 1X ONCE IV Last administered on 11/28/17at 15:58; Start 11/28/17 at 14:30; Stop 11/28/17 at 15:29; Status DC Sodium Chloride 1,000 ml @ 1,000 mls/hr 1X ONCE IV Last administered on at 13:39; Start 11/28/17 at 13:45; Stop 11/28/17 at 14:44; Status DC Sodium Chloride 1,000 ml @ 1,000 mls/hr 1X ONCE IV Last administered on at 16:15; Start 11/28/17 at 13:45; Stop 11/28/17 at 14:44; Status DC Acetaminophen (Tylenol) 650 mg PRN Q6HRS PRN PO FEVER; Start 11/28/17 at 13:45 Ondansetron HCl (Zofran) 4 mg PRN Q6HRS PRN IV NAUSEA/VOMITING; Start 11/28/17 at 13:45 Morphine Sulfate (Morphine Sulfate) 2 mg PRN Q2HR PRN IV MODERATE TO SEVERE PAIN Last administered on 11/28/17at 17:36; Start 11/28/17 at 13:45 Tramadol HCl (Ultram) 50 mg PRN Q6HRS PRN PO MILD TO MODERATE PAIN Last administered on 11/28/17at 15:58; Start 11/28/17 at 13:45 Hydralazine HCl (Apresoline Inj) 10 mg PRN Q4HRS PRN IVP ELEVATED BP, SEE COMMENTS; Start 11/28/17 at 13:45 Docusate Sodium (Colace) 100 mg PRN DAILY PRN PO CONSTIPATION; Start 11/28/17 at 13:45 Albuterol/ Ipratropium (Duoneb) 3 ml RTQID NEB Last administered on 11/29/17at 07 :30; Start 11/28/17 at 16:00 Albuterol Sulfate (Ventolin Neb Soln) 2.5 mg PRN Q2HR PRN NEB SHORTNESS OF BREATH Last administered on 11/28/17at 23:50; Start 11/28/17 at 13:45 Guaifenesin (Mucinex) 600 mg BID PO Last administered on 11/29/17at 09:32; Start 11/28/17 at 14:30 Triamcinolone Acetonide (Kenalog) 1 karsten BID TP Last administered on 11/29/17at 09 :50; Start 11/28/17 at 21:00 Nystatin (Nystop) 1 karsten BID TP Last administered on 11/29/17at 09:37; Start at 21:00 Diphenhydramine HCl (Benadryl) 25 mg PRN Q6HRS PRN PO ITCHING Last administered on 11/29/17at 02:25; Start 11/28/17 at 13:45 Insulin Human Lispro (HumaLOG) 0-9 UNITS TIDWMEALS SQ ; Start 11/28/17 at 17:00 Dextrose (Dextrose 50%-Water Syringe) 12.5 gm PRN Q15MIN PRN IV SEE COMMENTS; Start 11/28/17 at 13:45 Oxycodone/ Acetaminophen (Percocet 5/325) 1 tab PRN Q6HRS PRN PO SEVERE PAIN Last administered on 11/29/17 09:50; Start 11/28/17 at 17:00 Tamsulosin HCl (Flomax) 0.4 mg DAILY PO Last administered on 11/29/17 09:32; Start 11/28/17 at 18:00 Aspirin (Jorge Luis Aspirin) 325 mg DAILY PO Last administered on 11/29/17 09:32; Start 11/28/17 at 18:00 Duloxetine HCl (Cymbalta) 60 mg DAILY PO Last administered on 11/29/17 09:32; Start 11/28/17 at 18:00 Gabapentin (Neurontin) 300 mg TID PO Last administered on 11/29/17 09:32; Start 11/28/17 at 21:00 Pantoprazole Sodium (Protonix) 40 mg DAILYAC PO Last administered on 11/29/17 09:32; Start 11/28/17 at 18:00 Valacyclovir HCl (Valtrex) 1,000 mg TID PO Last administered on 11/29/17 09:32 ; Start 11/28/17 at 21:00 Insulin Human Lispro (HumaLOG) 6 units 1X ONCE SQ Last administered on at 20:52; Start 11/28/17 at 20:45; Stop 11/28/17 at 20:46; Status DC Non-Formulary Medication 1 ea BID SQ ; Start 11/28/17 at 23:00 Pneumococcal Polyvalent Vaccine (Do NOT chart on this placeholder) 1 each 1X ONCE MC ; Start 11/29/17 at 00:00; Stop 11/29/17 at 00:01; Status UNV Pneumococcal Polyvalent Vaccine (Pneumovax 23) 0.5 ml ONCE ONCE VAX IM ; Start 11/29/17 at 10:30; Stop 11/29/17 at 10:31; Status DC Active Scripts Active Eliquis (Apixaban) 5 Mg Tablet 5 Mg PO BID Reported Tresiba Flextouch U-200 (Insulin Degludec) 200 Unit/1 Ml Insuln.pen 75 Unit SQ BID Oxycodone Hcl 10 Mg Tablet 10 Tamsulosin Hcl 0.4 Mg Cap.er.24h 1 Cap PO DAILY Gabapentin 300 Mg Capsule 300 Mg PO TID Aspirin 325 Mg Tablet 1 Tab PO DAILY Prilosec Otc (Omeprazole Magnesium) 20 Mg Tablet.dr 1 Tab PO DAILY Cymbalta (Duloxetine Hcl) 60 Mg Capsule.dr 1 Cap PO DAILY Hydroxychloroquine Sulfate 200 Mg Tablet 1 Tab PO BID Finasteride 5 Mg Tablet 1 Tab PO DAILY Zoloft (Sertraline Hcl) 50 Mg Tablet 1 Tab PO DAILY Omeprazole 40 Mg Capsule.dr 1 Cap PO DAILY Metformin Hcl Er (Metformin Hcl) 1,000 Mg Tab.er.24 1,000 Mg PO DAILYWBKFT Cephalexin 500 Mg Capsule 2 Cap PO BID 10 Days Hydrocodone-Apap 7.5-325 (Hydrocodone Bit/Acetaminophen) 1 Each Tablet 1 Tab PO PRN Q6HRS PRN NITROGLYCERIN SubLingual (Nitroglycerin) 0.4 Mg Tab.subl 0.4 Mg SL PRN Q5MIN PRN Levemir (Insulin Detemir) 100 Unit/1 Ml Vial 50 Unit SQ BID Breo Ellipta 200-25 Mcg INH (Fluticasone/Vilanterol) 1 Each Blst.w.dev 2 Puff IH DAILY PRN Atorvastatin Calcium 20 Mg Tablet 20 Mg PO HS Gabapentin 300 Mg Capsule 300 Mg PO TID NEXT DOSE DUE AT 2 PM AND AT BEDTIME Carvedilol 3.125 Mg Tablet 1 Tab PO BID NEXT DOSE DUE WITH SUPPER TODAY Lisinopril 2.5 Mg Tablet 1 Tab PO DAILY NEXT DOSE DUE ON 11/05/14 Plavix (Clopidogrel Bisulfate) 75 Mg Tablet 1 Tab PO DAILY NEXT DOSE DUE ON 11/05/14 Tamsulosin Hcl 0.4 Mg Cap.er.24h 0.4 Mg PO HS MAY TAKE ANYTIME Prilosec (Omeprazole) 40 Mg Capsule.dr 40 Mg PO DAILY MAY TAKE ANY TIME Aspir 81 (Aspirin) 81 Mg Tablet. 81 Mg PO DAILY NEXT DOSE DUE ON 11/05/14 Vitals/I & O Vital Sign - Last 24 Hours 11/28/17 11/28/17 11/28/17 11/28/17 11:20 12:09 12:54 13:40 Temp 97.9 97.9 Pulse 103 103 105 96 Resp 22 24 20 18 B/P (MAP) 107/61 (76) 148/98 (115) 145/90 (108) 137/89 (105) Pulse Ox 97 97 96 95 O2 Delivery Room Air Room Air Room Air Room Air 11/28/17 11/28/17 11/28/17 11/28/17 13:48 14:51 16:00 16:14 Temp 97.9 97.9 Pulse 107 Resp 22 B/P (MAP) 142/91 (108) Pulse Ox 95 95 95 O2 Delivery Room Air Room Air Room Air Room Air 11/28/17 11/28/17 11/28/17 11/28/17 17:36 19:00 20:07 20:15 Temp 97.6 97.6 Pulse 106 Resp 22 B/P (MAP) 129/94 (106) Pulse Ox 95 95 O2 Delivery Room Air Room Air Room Air 11/28/17 11/28/17 11/29/17 11/29/17 23:00 23:50 02:22 03:00 Temp 97.6 97.6 97.6 97.6 Pulse 101 109 Resp 22 B/P (MAP) 109/57 (74) 117/76 (90) Pulse Ox 96 96 O2 Delivery Room Air Room Air Nasal Cannula Room Air O2 Flow Rate 2.0 11/29/17 11/29/17 11/29/17 11/29/17 03:22 07:00 07:33 10:44 Temp 97.4 97.9 97.4 97.9 Pulse 107 104 Resp B/P (MAP) 114/78 (90) 120/74 (89) Pulse Ox 95 96 96 O2 Delivery Nasal Cannula Nasal Cannula Nasal Cannula Nasal Cannula O2 Flow Rate 2.0 2.0 2.0 Intake and Output 11/28/17 11/28/17 11/29/17 14:59 22:59 06:59 Intake Total 1000 ml 200 ml 380 ml Output Total 350 ml Balance 1000 ml 200 ml 30 ml DENIA PAGAN MD Nov 29, 2017 11:02
[2017-11-29] MEDS: traMADol 50 MG TABLET PO PRN (13:22)
[2017-11-29] MEDS ORDERED: LIDOCAINE 2% TOPICAL JELLY 5GM TUBE. TP PRN (13:30)
--- NOTE | 2017-11-29 13:33 | PDOC ---
CARDIO Progress Notes Date and Time Date of Service 11/29/2017 Time of Evaluation 1130 Subjective Subjective: No Chest Pain, No shortness of breath, No Palpitations, Other ( still has tinnitus and feeling that surrounding is shaking) Vitals Vitals Vital Signs Date Time Temp Pulse Resp B/P (MAP) Pulse Ox O2 Delivery O2 Flow Rate FiO2 11/29/17 12:05 96 Room Air 11/29/17 10:44 97.9 104 22 120/74 (89) 2.0 97.9 Weight Weight [ ] Input and Output Intake and Output Intake and Output 11/29/17 07:00 Intake Total 1580 ml Output Total 350 ml Balance 1230 ml Intake Oral 580 ml IV Total 1000 ml Output Urine Total 350 ml # Voids 1 Laboratory Labs Laboratory Tests Test 11/28/17 19:10 11/28/17 20:16 11/29/17 03:05 11/29/17 07:51 Troponin I Quantitative < 0.017 ng/mL (0.000-0.055) Glucose (Fingerstick) 301 mg/dL (70-99) 87 mg/dL (70-99) White Blood Count 7.2 x10^3/uL (4.0-11.0) Red Blood Count 4.78 x10^6/uL (4.30-5.70) Hemoglobin 14.5 g/dL (13.0-17.5) Hematocrit 42.8 % (39.0-53.0) Mean Corpuscular Volume 90 fL (79-100) Mean Corpuscular Hemoglobin 30 pg (25-35) Mean Corpuscular Hemoglobin Concent 34 g/dL (31-37) Red Cell Distribution Width 13.9 % (11.5-14.5) Platelet Count 140 x10^3/uL (140-400) Neutrophils (%) (Auto) 66 % (31-73) Lymphocytes (%) (Auto) 20 % (24-48) Monocytes (%) (Auto) 12 % (0-9) Eosinophils (%) (Auto) 2 % (0-3) Basophils (%) (Auto) 1 % (0-3) Neutrophils # (Auto) 4.8 x10^3uL (1.8-7.7) Lymphocytes # (Auto) 1.4 x10^3/uL (1.0-4.8) Monocytes # (Auto) 0.8 x10^3/uL (0.0-1.1) Eosinophils # (Auto) 0.2 x10^3/uL (0.0-0.7) Basophils # (Auto) 0.1 x10^3/uL (0.0-0.2) Sodium Level 142 mmol/L (136-145) Potassium Level 3.7 mmol/L (3.5-5.1) Chloride Level 108 mmol/L (98-107) Carbon Dioxide Level 25 mmol/L (21-32) Anion Gap 9 (6-14) Blood Urea Nitrogen 22 mg/dL (8-26) Creatinine 1.1 mg/dL (0.7-1.3) Estimated GFR (Cockcroft-Gault) 67.4 BUN/Creatinine Ratio 20 (6-20) Glucose Level 94 mg/dL (70-99) Calcium Level 8.6 mg/dL (8.5-10.1) Total Bilirubin 0.4 mg/dL (0.2-1.0) Aspartate Amino Transf (AST/SGOT) 21 U/L (15-37) Alanine Aminotransferase (ALT/SGPT) 31 U/L (16-63) Alkaline Phosphatase 95 U/L (46-116) Total Protein 6.3 g/dL (6.4-8.2) Albumin 2.9 g/dL (3.4-5.0) Albumin/Globulin Ratio 0.9 (1.0-1.7) Triglycerides Level 388 mg/dL (0-150) Cholesterol Level 154 mg/dL (0-200) LDL Cholesterol, Calculated 61 mg/dL (0-100) VLDL Cholesterol, Calculated 78 mg/dL (0-40) Non-HDL Cholesterol Calculated 139 mg/dL (0-129) HDL Cholesterol 15 mg/dL (40-60) Cholesterol/HDL Ratio 10.3 Test 11/29/17 11:35 Glucose (Fingerstick) 181 mg/dL (70-99) Microbiology Micro Microbiology 11/28/17 Blood Culture - Preliminary, Resulted NO GROWTH AFTER 1 DAY Physical Exam HEENT: Neck Supple W Full Motion Chest: Symmetric LUNGS: Clear to Auscultation Heart: S1S2, RRR (SR) Abdomen: Soft N/T Extremities: No Edema, No Calf Tenderness Neurology: alert, oriented, follow commands Assessment Assessment 1. Possible Menieres vs labyrinthitis: Defer to PCP 2. Vertigo: not dizziness per se, described as shaking surrounding with deafness and continued tinnitus with suspected culprit as noted above. 3. Possible Herpes zoster: right unilateral clustered lesions to right back shoulder 4. 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 Biotronik 5. CAD: past PCI/stent to RCA. Stable. 6. HTN: controlled 7. HLP: TG at 388 8. Marijuana use 9. COPD: pulmonary following 10. Cardiomyopathy: EF 40-45%, compensated Recommendations 1. Awaiting interrogation of pacemaker 2. Continue with secondary prevention. 3. No statin on med profile. LDL is well controlled and HDL low. Restart lipitor. Will need to control carb load and DM. Dietitian consult. JACQUELYN FLORES APRN Nov 29, 2017 13:33
[2017-11-29] MEDS ORDERED: FENOFIBRATE 54 MG TABLET. PO SCH (14:00)
[2017-11-29] MEDS: LISINOPRIL 5 MG TABLET. PO SCH (14:38)
--- NOTE | 2017-11-29 14:39 | PDOC ---
PROGRESS NOTES Chief Complaint Chief Complaint dizzy/ lightheaded, presyncope, need to rule out orthostatic hypotension skin rash, shingles, VZV PPM H/O CAD WITH stents dm2 on insulin COPD tobaccoism HTN HLD GERD depression BPH marijuana use h/o stroke with mild rt side weakness groin aron dermatitis History of Present Illness History of Present Illness IV antiviral topical pain treatment CV following tele, check orthostatic BP nystatin powder for groin area Vitals Vitals Vital Signs Date Time Temp Pulse Resp B/P (MAP) Pulse Ox O2 Delivery O2 Flow Rate FiO2 11/29/17 12:05 96 Room Air 11/29/17 10:44 97.9 104 22 120/74 (89) 2.0 97.9 Physical Exam General: Alert, Oriented X3, Cooperative, No acute distress Heart: Normal S1, Normal S2, No murmurs Abdomen: Normal bowel sounds, Soft Extremities: No edema Skin: Other Labs LABS Laboratory Tests Test 11/28/17 19:10 11/28/17 20:16 11/29/17 03:05 11/29/17 07:51 Troponin I Quantitative < 0.017 ng/mL (0.000-0.055) Glucose (Fingerstick) 301 mg/dL (70-99) 87 mg/dL (70-99) White Blood Count 7.2 x10^3/uL (4.0-11.0) Red Blood Count 4.78 x10^6/uL (4.30-5.70) Hemoglobin 14.5 g/dL (13.0-17.5) Hematocrit 42.8 % (39.0-53.0) Mean Corpuscular Volume 90 fL (79-100) Mean Corpuscular Hemoglobin 30 pg (25-35) Mean Corpuscular Hemoglobin Concent 34 g/dL (31-37) Red Cell Distribution Width 13.9 % (11.5-14.5) Platelet Count 140 x10^3/uL (140-400) Neutrophils (%) (Auto) 66 % (31-73) Lymphocytes (%) (Auto) 20 % (24-48) Monocytes (%) (Auto) 12 % (0-9) Eosinophils (%) (Auto) 2 % (0-3) Basophils (%) (Auto) 1 % (0-3) Neutrophils # (Auto) 4.8 x10^3uL (1.8-7.7) Lymphocytes # (Auto) 1.4 x10^3/uL (1.0-4.8) Monocytes # (Auto) 0.8 x10^3/uL (0.0-1.1) Eosinophils # (Auto) 0.2 x10^3/uL (0.0-0.7) Basophils # (Auto) 0.1 x10^3/uL (0.0-0.2) Sodium Level 142 mmol/L (136-145) Potassium Level 3.7 mmol/L (3.5-5.1) Chloride Level 108 mmol/L (98-107) Carbon Dioxide Level 25 mmol/L (21-32) Anion Gap 9 (6-14) Blood Urea Nitrogen 22 mg/dL (8-26) Creatinine 1.1 mg/dL (0.7-1.3) Estimated GFR (Cockcroft-Gault) 67.4 BUN/Creatinine Ratio 20 (6-20) Glucose Level 94 mg/dL (70-99) Calcium Level 8.6 mg/dL (8.5-10.1) Total Bilirubin 0.4 mg/dL (0.2-1.0) Aspartate Amino Transf (AST/SGOT) 21 U/L (15-37) Alanine Aminotransferase (ALT/SGPT) 31 U/L (16-63) Alkaline Phosphatase 95 U/L (46-116) Total Protein 6.3 g/dL (6.4-8.2) Albumin 2.9 g/dL (3.4-5.0) Albumin/Globulin Ratio 0.9 (1.0-1.7) Triglycerides Level 388 mg/dL (0-150) Cholesterol Level 154 mg/dL (0-200) LDL Cholesterol, Calculated 61 mg/dL (0-100) VLDL Cholesterol, Calculated 78 mg/dL (0-40) Non-HDL Cholesterol Calculated 139 mg/dL (0-129) HDL Cholesterol 15 mg/dL (40-60) Cholesterol/HDL Ratio 10.3 Test 11/29/17 11:35 Glucose (Fingerstick) 181 mg/dL (70-99) Assessment and Plan Assessmemt and Plan Problems Medical Problems: (1) COPD (chronic obstructive pulmonary disease) Status: Acute (2) Pre-syncope Status: Acute Comment Review of Relevant I have reviewed the following items bud (where applicable) has been applied. Labs Laboratory Tests Test 11/28/17 10:05 11/28/17 10:50 11/28/17 19:10 11/28/17 20:16 White Blood Count 7.5 x10^3/uL (4.0-11.0) Red Blood Count 5.46 x10^6/uL (4.30-5.70) Hemoglobin 16.9 g/dL (13.0-17.5) Hematocrit 48.5 % (39.0-53.0) Mean Corpuscular Volume 89 fL (79-100) Mean Corpuscular Hemoglobin 31 pg (25-35) Mean Corpuscular Hemoglobin Concent 35 g/dL (31-37) Red Cell Distribution Width 13.9 % (11.5-14.5) Platelet Count 171 x10^3/uL (140-400) Neutrophils (%) (Auto) 61 % (31-73) Lymphocytes (%) (Auto) 23 % (24-48) Monocytes (%) (Auto) 13 % (0-9) Eosinophils (%) (Auto) 2 % (0-3) Basophils (%) (Auto) 1 % (0-3) Neutrophils # (Auto) 4.6 x10^3uL (1.8-7.7) Lymphocytes # (Auto) 1.7 x10^3/uL (1.0-4.8) Monocytes # (Auto) 1.0 x10^3/uL (0.0-1.1) Eosinophils # (Auto) 0.1 x10^3/uL (0.0-0.7) Basophils # (Auto) 0.1 x10^3/uL (0.0-0.2) Prothrombin Time 12.5 SEC (11.7-14.0) Prothromb Time International Ratio 1.0 (0.8-1.1) D-Dimer (Marga) 0.61 ug/mlFEU (0.00-0.50) Sodium Level 139 mmol/L (136-145) Potassium Level 4.0 mmol/L (3.5-5.1) Chloride Level 104 mmol/L (98-107) Carbon Dioxide Level 24 mmol/L (21-32) Anion Gap 11 (6-14) Blood Urea Nitrogen 20 mg/dL (8-26) Creatinine 1.1 mg/dL (0.7-1.3) Estimated GFR (Cockcroft-Gault) 67.4 BUN/Creatinine Ratio 18 (6-20) Glucose Level 197 mg/dL (70-99) Lactic Acid Level 2.1 mmol/L (0.4-2.0) Calcium Level 9.7 mg/dL (8.5-10.1) Magnesium Level 1.9 mg/dL (1.8-2.4) Total Bilirubin 0.5 mg/dL (0.2-1.0) Aspartate Amino Transf (AST/SGOT) 23 U/L (15-37) Alanine Aminotransferase (ALT/SGPT) 36 U/L (16-63) Alkaline Phosphatase 125 U/L (46-116) Creatine Kinase 112 U/L (39-308) Troponin I Quantitative < 0.017 ng/mL (0.000-0.055) < 0.017 ng/mL (0.000-0.055) LU-Nzw-[id number]-Type Natriuretic Peptide 448 pg/mL (0-124) Total Protein 7.7 g/dL (6.4-8.2) Albumin 3.6 g/dL (3.4-5.0) Albumin/Globulin Ratio 0.9 (1.0-1.7) Thyroid Stimulating Hormone (TSH) 1.577 uIU/mL (0.358-3.74) Urine Collection Type Unknown Urine Color Zoë Urine Clarity Clear Urine pH 5.5 Urine Specific Louin >=1.030 Urine Protein 30 mg/dL (NEG-TRACE) Urine Glucose (UA) 100 mg/dL (NEG) Urine Ketones (Stick) Negative mg/dL (NEG) Urine Blood Negative (NEG) Urine Nitrite Negative (NEG) Urine Bilirubin Small (NEG) Urine Urobilinogen Dipstick 1.0 mg/dL (0.2 mg/dL) Urine Leukocyte Esterase Negative (NEG) Urine RBC Occ /HPF (0-2) Urine WBC 1-4 /HPF (0-4) Urine Squamous Epithelial Cells Few /LPF Urine Bacteria Few /HPF (0-FEW) Urine Mucus Mod /LPF Urine Opiates Screen Neg (NEG) Urine Methadone Screen Neg (NEG) Urine Barbiturates Neg (NEG) Urine Phencyclidine Screen Neg (NEG) Urine Amphetamine/Methamphetamine Neg (NEG) Urine Benzodiazepines Screen Neg (NEG) Urine Cocaine Screen Neg (NEG) Urine Cannabinoids Screen Pos (NEG) Urine Ethyl Alcohol Neg (NEG) Glucose (Fingerstick) 301 mg/dL (70-99) Test 11/29/17 03:05 11/29/17 07:51 11/29/17 11:35 White Blood Count 7.2 x10^3/uL (4.0-11.0) Red Blood Count 4.78 x10^6/uL (4.30-5.70) Hemoglobin 14.5 g/dL (13.0-17.5) Hematocrit 42.8 % (39.0-53.0) Mean Corpuscular Volume 90 fL (79-100) Mean Corpuscular Hemoglobin 30 pg (25-35) Mean Corpuscular Hemoglobin Concent 34 g/dL (31-37) Red Cell Distribution Width 13.9 % (11.5-14.5) Platelet Count 140 x10^3/uL (140-400) Neutrophils (%) (Auto) 66 % (31-73) Lymphocytes (%) (Auto) 20 % (24-48) Monocytes (%) (Auto) 12 % (0-9) Eosinophils (%) (Auto) 2 % (0-3) Basophils (%) (Auto) 1 % (0-3) Neutrophils # (Auto) 4.8 x10^3uL (1.8-7.7) Lymphocytes # (Auto) 1.4 x10^3/uL (1.0-4.8) Monocytes # (Auto) 0.8 x10^3/uL (0.0-1.1) Eosinophils # (Auto) 0.2 x10^3/uL (0.0-0.7) Basophils # (Auto) 0.1 x10^3/uL (0.0-0.2) Sodium Level 142 mmol/L (136-145) Potassium Level 3.7 mmol/L (3.5-5.1) Chloride Level 108 mmol/L (98-107) Carbon Dioxide Level 25 mmol/L (21-32) Anion Gap 9 (6-14) Blood Urea Nitrogen 22 mg/dL (8-26) Creatinine 1.1 mg/dL (0.7-1.3) Estimated GFR (Cockcroft-Gault) 67.4 BUN/Creatinine Ratio 20 (6-20) Glucose Level 94 mg/dL (70-99) Calcium Level 8.6 mg/dL (8.5-10.1) Total Bilirubin 0.4 mg/dL (0.2-1.0) Aspartate Amino Transf (AST/SGOT) 21 U/L (15-37) Alanine Aminotransferase (ALT/SGPT) 31 U/L (16-63) Alkaline Phosphatase 95 U/L (46-116) Total Protein 6.3 g/dL (6.4-8.2) Albumin 2.9 g/dL (3.4-5.0) Albumin/Globulin Ratio 0.9 (1.0-1.7) Triglycerides Level 388 mg/dL (0-150) Cholesterol Level 154 mg/dL (0-200) LDL Cholesterol, Calculated 61 mg/dL (0-100) VLDL Cholesterol, Calculated 78 mg/dL (0-40) Non-HDL Cholesterol Calculated 139 mg/dL (0-129) HDL Cholesterol 15 mg/dL (40-60) Cholesterol/HDL Ratio 10.3 Glucose (Fingerstick) 87 mg/dL (70-99) 181 mg/dL (70-99) Laboratory Tests Test 11/28/17 19:10 11/28/17 20:16 11/29/17 03:05 11/29/17 07:51 Troponin I Quantitative < 0.017 ng/mL (0.000-0.055) Glucose (Fingerstick) 301 mg/dL (70-99) 87 mg/dL (70-99) White Blood Count 7.2 x10^3/uL (4.0-11.0) Red Blood Count 4.78 x10^6/uL (4.30-5.70) Hemoglobin 14.5 g/dL (13.0-17.5) Hematocrit 42.8 % (39.0-53.0) Mean Corpuscular Volume 90 fL (79-100) Mean Corpuscular Hemoglobin 30 pg (25-35) Mean Corpuscular Hemoglobin Concent 34 g/dL (31-37) Red Cell Distribution Width 13.9 % (11.5-14.5) Platelet Count 140 x10^3/uL (140-400) Neutrophils (%) (Auto) 66 % (31-73) Lymphocytes (%) (Auto) 20 % (24-48) Monocytes (%) (Auto) 12 % (0-9) Eosinophils (%) (Auto) 2 % (0-3) Basophils (%) (Auto) 1 % (0-3) Neutrophils # (Auto) 4.8 x10^3uL (1.8-7.7) Lymphocytes # (Auto) 1.4 x10^3/uL (1.0-4.8) Monocytes # (Auto) 0.8 x10^3/uL (0.0-1.1) Eosinophils # (Auto) 0.2 x10^3/uL (0.0-0.7) Basophils # (Auto) 0.1 x10^3/uL (0.0-0.2) Sodium Level 142 mmol/L (136-145) Potassium Level 3.7 mmol/L (3.5-5.1) Chloride Level 108 mmol/L (98-107) Carbon Dioxide Level 25 mmol/L (21-32) Anion Gap 9 (6-14) Blood Urea Nitrogen 22 mg/dL (8-26) Creatinine 1.1 mg/dL (0.7-1.3) Estimated GFR (Cockcroft-Gault) 67.4 BUN/Creatinine Ratio 20 (6-20) Glucose Level 94 mg/dL (70-99) Calcium Level 8.6 mg/dL (8.5-10.1) Total Bilirubin 0.4 mg/dL (0.2-1.0) Aspartate Amino Transf (AST/SGOT) 21 U/L (15-37) Alanine Aminotransferase (ALT/SGPT) 31 U/L (16-63) Alkaline Phosphatase 95 U/L (46-116) Total Protein 6.3 g/dL (6.4-8.2) Albumin 2.9 g/dL (3.4-5.0) Albumin/Globulin Ratio 0.9 (1.0-1.7) Triglycerides Level 388 mg/dL (0-150) Cholesterol Level 154 mg/dL (0-200) LDL Cholesterol, Calculated 61 mg/dL (0-100) VLDL Cholesterol, Calculated 78 mg/dL (0-40) Non-HDL Cholesterol Calculated 139 mg/dL (0-129) HDL Cholesterol 15 mg/dL (40-60) Cholesterol/HDL Ratio 10.3 Test 11/29/17 11:35 Glucose (Fingerstick) 181 mg/dL (70-99) Microbiology 11/28/17 Blood Culture - Preliminary, Resulted NO GROWTH AFTER 1 DAY Medications Current Medications Albuterol/ Ipratropium (Duoneb) 3 ml 1X ONCE NEB Last administered on at 10:01; Start 11/28/17 at 10:00; Stop 11/28/17 at 10:01; Status DC Lidocaine HCl (Lidocaine Pf 2% Vial) 5 ml 1X ONCE IJ ; Start 11/28/17 at 11:30; Stop 11/28/17 at 11:39; Status DC Sodium Chloride 1,000 ml @ 1,000 mls/hr 1X ONCE IV Last administered on at 11:51; Start 11/28/17 at 11:30; Stop 11/28/17 at 12:29; Status DC Iohexol (Omnipaque 300 Mg/ml) 75 ml 1X ONCE IV Last administered on 11/28/17at 12:00; Start 11/28/17 at 11:45; Stop 11/28/17 at 11:46; Status DC Info (CONTRAST GIVEN -- Rx MONITORING) 1 each PRN DAILY PRN MC SEE COMMENTS; Start 11/28/17 at 11:45; Stop 11/30/17 at 11:44 Albuterol/ Ipratropium (Duoneb) 3 ml 1X ONCE NEB Last administered on at 13:48; Start 11/28/17 at 13:00; Stop 11/28/17 at 13:01; Status DC Ondansetron HCl (Zofran) 4 mg PRN Q8HRS PRN IV NAUSEA/VOMITING; Start 11/28/17 at 13:00; Stop 11/28/17 at 13:52; Status DC Morphine Sulfate (Morphine Sulfate) 2 mg PRN Q2HR PRN IV PAIN; Start 11/28/17 at 13:00; Stop 11/28/17 at 13:51; Status DC Acetaminophen (Tylenol) 650 mg PRN Q4HRS PRN PO FEVER; Start 11/28/17 at 13:00; Stop 11/28/17 at 13:51; Status DC Ceftriaxone Sodium 50 ml @ 100 mls/hr 1X ONCE IV Last administered on at 13:56; Start 11/28/17 at 14:00; Stop 11/28/17 at 14:29; Status DC Azithromycin 500 mg/Sodium Chloride 250 ml @ 250 mls/hr 1X ONCE IV Last administered on 11/28/17at 15:58; Start 11/28/17 at 14:30; Stop 11/28/17 at 15:29; Status DC Sodium Chloride 1,000 ml @ 1,000 mls/hr 1X ONCE IV Last administered on at 13:39; Start 11/28/17 at 13:45; Stop 11/28/17 at 14:44; Status DC Sodium Chloride 1,000 ml @ 1,000 mls/hr 1X ONCE IV Last administered on at 16:15; Start 11/28/17 at 13:45; Stop 11/28/17 at 14:44; Status DC Acetaminophen (Tylenol) 650 mg PRN Q6HRS PRN PO FEVER; Start 11/28/17 at 13:45 Ondansetron HCl (Zofran) 4 mg PRN Q6HRS PRN IV NAUSEA/VOMITING; Start 11/28/17 at 13:45 Morphine Sulfate (Morphine Sulfate) 2 mg PRN Q2HR PRN IV MODERATE TO SEVERE PAIN Last administered on 11/28/17at 17:36; Start 11/28/17 at 13:45 Tramadol HCl (Ultram) 50 mg PRN Q6HRS PRN PO MILD TO MODERATE PAIN Last administered on 11/29/17at 13:22; Start 11/28/17 at 13:45 Hydralazine HCl (Apresoline Inj) 10 mg PRN Q4HRS PRN IVP ELEVATED BP, SEE COMMENTS; Start 11/28/17 at 13:45 Docusate Sodium (Colace) 100 mg PRN DAILY PRN PO CONSTIPATION; Start 11/28/17 at 13:45 Albuterol/ Ipratropium (Duoneb) 3 ml RTQID NEB Last administered on 11/29/17at 12 :04; Start 11/28/17 at 16:00 Albuterol Sulfate (Ventolin Neb Soln) 2.5 mg PRN Q2HR PRN NEB SHORTNESS OF BREATH Last administered on 11/28/17at 23:50; Start 11/28/17 at 13:45 Guaifenesin (Mucinex) 600 mg BID PO Last administered on 11/29/17 09:32; Start 11/28/17 at 14:30 Triamcinolone Acetonide (Kenalog) 1 karsten BID TP Last administered on 11/29/17 09 :50; Start 11/28/17 at 21:00 Nystatin (Nystop) 1 karsten BID TP Last administered on 11/29/17 09:37; Start at 21:00 Diphenhydramine HCl (Benadryl) 25 mg PRN Q6HRS PRN PO ITCHING Last administered on 11/29/17 02:25; Start 11/28/17 at 13:45 Insulin Human Lispro (HumaLOG) 0-9 UNITS TIDWMEALS SQ Last administered on 13:28; Start 11/28/17 at 17:00 Dextrose (Dextrose 50%-Water Syringe) 12.5 gm PRN Q15MIN PRN IV SEE COMMENTS; Start 11/28/17 at 13:45 Oxycodone/ Acetaminophen (Percocet 5/325) 1 tab PRN Q6HRS PRN PO SEVERE PAIN Last administered on 11/29/17 09:50; Start 11/28/17 at 17:00 Tamsulosin HCl (Flomax) 0.4 mg DAILY PO Last administered on 11/29/17 09:32; Start 11/28/17 at 18:00 Aspirin (Jorge Luis Aspirin) 325 mg DAILY PO Last administered on 11/29/17 09:32; Start 11/28/17 at 18:00 Duloxetine HCl (Cymbalta) 60 mg DAILY PO Last administered on 11/29/17 09:32; Start 11/28/17 at 18:00 Gabapentin (Neurontin) 300 mg TID PO Last administered on 11/29/17 09:32; Start 11/28/17 at 21:00 Pantoprazole Sodium (Protonix) 40 mg DAILYAC PO Last administered on 11/29/17 09:32; Start 11/28/17 at 18:00 Valacyclovir HCl (Valtrex) 1,000 mg TID PO Last administered on 11/29/17 09:32 ; Start 11/28/17 at 21:00 Insulin Human Lispro (HumaLOG) 6 units 1X ONCE SQ Last administered on 8/7/ 18at 20:52; Start 11/28/17 at 20:45; Stop 11/28/17 at 20:46; Status DC Non-Formulary Medication 1 ea BID SQ ; Start 11/28/17 at 23:00 Pneumococcal Polyvalent Vaccine (Do NOT chart on this placeholder) 1 each 1X ONCE MC ; Start 11/29/17 at 00:00; Stop 11/29/17 at 00:01; Status UNV Pneumococcal Polyvalent Vaccine (Pneumovax 23) 0.5 ml ONCE ONCE VAX IM ; Start 11/29/17 at 10:30; Stop 11/29/17 at 10:31; Status DC Lidocaine HCl (Xylocaine 2% Topical 5gm Tube) 1 karsten PRN Q6HRS PRN TP pain; Start 11/29/17 at 13:30 Fenofibrate (Lofibra) 54 mg DAILY PO ; Start 11/29/17 at 14:00; Stop 11/29/17 at 14:00; Status DC Atorvastatin Calcium (Lipitor) 20 mg HS PO ; Start 11/29/17 at 21:00 Carvedilol (Coreg) 3.125 mg BIDWMEALS PO ; Start 11/29/17 at 17:00 Lisinopril (Prinivil) 2.5 mg DAILY PO ; Start 11/29/17 at 14:00 Active Scripts Active Eliquis (Apixaban) 5 Mg Tablet 5 Mg PO BID Reported Tresiba Flextouch U-200 (Insulin Degludec) 200 Unit/1 Ml Insuln.pen 75 Unit SQ BID Oxycodone Hcl 10 Mg Tablet 10 Tamsulosin Hcl 0.4 Mg Cap.er.24h 1 Cap PO DAILY Gabapentin 300 Mg Capsule 300 Mg PO TID Aspirin 325 Mg Tablet 1 Tab PO DAILY Prilosec Otc (Omeprazole Magnesium) 20 Mg Tablet.dr 1 Tab PO DAILY Cymbalta (Duloxetine Hcl) 60 Mg Capsule. 1 Cap PO DAILY Hydroxychloroquine Sulfate 200 Mg Tablet 1 Tab PO BID Finasteride 5 Mg Tablet 1 Tab PO DAILY Zoloft (Sertraline Hcl) 50 Mg Tablet 1 Tab PO DAILY Omeprazole 40 Mg Capsule.dr 1 Cap PO DAILY Metformin Hcl Er (Metformin Hcl) 1,000 Mg Tab.er.24 1,000 Mg PO DAILYWBKFT Cephalexin 500 Mg Capsule 2 Cap PO BID 10 Days Hydrocodone-Apap 7.5-325 (Hydrocodone Bit/Acetaminophen) 1 Each Tablet 1 Tab PO PRN Q6HRS PRN NITROGLYCERIN SubLingual (Nitroglycerin) 0.4 Mg Tab.subl 0.4 Mg SL PRN Q5MIN PRN Levemir (Insulin Detemir) 100 Unit/1 Ml Vial 50 Unit SQ BID Breo Ellipta 200-25 Mcg INH (Fluticasone/Vilanterol) 1 Each Blst.w.dev 2 Puff IH DAILY PRN Atorvastatin Calcium 20 Mg Tablet 20 Mg PO HS Gabapentin 300 Mg Capsule 300 Mg PO TID NEXT DOSE DUE AT 2 PM AND AT BEDTIME Carvedilol 3.125 Mg Tablet 1 Tab PO BID NEXT DOSE DUE WITH SUPPER TODAY Lisinopril 2.5 Mg Tablet 1 Tab PO DAILY NEXT DOSE DUE ON 11/05/14 Plavix (Clopidogrel Bisulfate) 75 Mg Tablet 1 Tab PO DAILY NEXT DOSE DUE ON 11/05/14 Tamsulosin Hcl 0.4 Mg Cap.er.24h 0.4 Mg PO HS MAY TAKE ANYTIME Prilosec (Omeprazole) 40 Mg Capsule.dr 40 Mg PO DAILY MAY TAKE ANY TIME Aspir 81 (Aspirin) 81 Mg Tablet.dr 81 Mg PO DAILY NEXT DOSE DUE ON 11/05/14 Vitals/I & O Vital Sign - Last 24 Hours 11/28/17 11/28/17 11/28/17 11/28/17 14:51 16:00 16:14 17:36 Temp 97.9 97.9 Pulse 107 Resp 22 B/P (MAP) 142/91 (108) Pulse Ox 95 95 95 O2 Delivery Room Air Room Air Room Air 11/28/17 11/28/17 11/28/17 11/28/17 19:00 20:07 20:15 23:00 Temp 97.6 97.6 97.6 97.6 Pulse 106 101 Resp 22 22 B/P (MAP) 129/94 (106) 109/57 (74) Pulse Ox 95 96 O2 Delivery Room Air Room Air Room Air Room Air 11/28/17 11/29/17 11/29/17 11/29/17 23:50 02:22 03:00 03:22 Temp 97.6 97.6 Pulse 109 Resp 22 B/P (MAP) 117/76 (90) Pulse Ox 96 O2 Delivery Room Air Nasal Cannula Room Air Nasal Cannula O2 Flow Rate 2.0 11/29/17 11/29/17 11/29/17 11/29/17 07:00 07:33 08:00 10:44 Temp 97.4 97.9 97.4 97.9 Pulse 107 104 Resp 21 22 B/P (MAP) 114/78 (90) 120/74 (89) Pulse Ox 95 96 96 O2 Delivery Nasal Cannula Nasal Cannula Room Air Nasal Cannula O2 Flow Rate 2.0 2.0 2.0 11/29/17 12:05 Pulse Ox 96 O2 Delivery Room Air Intake and Output 11/28/17 11/28/17 11/29/17 15:00 23:00 07:00 Intake Total 1000 ml 200 ml 380 ml Output Total 350 ml Balance 1000 ml 200 ml 30 ml MEENA GARCES MD Nov 29, 2017 14:39
[2017-11-29] MEDS: CARVEDILOL 3.125 MG TABLET. PO SCH (18:18)
[2017-11-29] MEDS: ATORVASTATIN CALCIUM 20 MG TABLET PO SCH (20:20)
[2017-11-29] MEDS: ALBUTEROL SULFATE 2.5 MG/3 ML NEBU. NEB PRN (23:27)
[2017-11-30] MEDS: ALPRAZolam 0.5 MG TABLET PO PRN ×3 (00:25→16:14)
[2017-11-30] MEDS: BENZOCAINE/MENTHOL LOZENGE. PO PRN ×3 (00:25→16:14)
[2017-11-30 03:43] VITALS: BP 121/82
[2017-11-30] MEDS: MORPHINE SULFATE 2 MG/ML DISP.SYRIN. IV PRN ×5 (04:43→21:37)
[2017-11-30] MEDS: ALBUTEROL SULFATE 2.5 MG/3 ML NEBU. NEB PRN (04:45)
[2017-11-30] MEDS ORDERED: ALPRAZolam 0.5 MG TABLET PO ONE (05:15)
[2017-11-30 05:26] LABS: BASE EXCESS ABG -2 mmol/L (-3-3); HCO3 ABG 22 mmol/L (21-28); PO2 ABG 67 mmHg (65-108); SAT O2 ABG 93 % (92-99)
[2017-11-30 05:45] LABS: FIO2 ABG 28; PCO2 ABG 37 mmHg (35-46)
[2017-11-30 07:00] VITALS: BP 124/89
[2017-11-30] MEDS: NYSTATIN TOPICAL POWDER 15GM BOTTLE. TP SCH ×2 (08:06→21:45)
[2017-11-30] MEDS: DULoxetine HCL 30 MG CAPSULE.DR PO SCH (08:07)
[2017-11-30] MEDS: ASPIRIN 325 MG TABLET PO SCH (08:07)
[2017-11-30] MEDS: IPRATRPIUM/ALBUTEROL 0.5/2.5MG 3 ML NEBU. NEB SCH ×4 (08:07→19:32)
[2017-11-30] MEDS: PANTOPRAZOLE 40 MG TABLET.DR. PO SCH (08:07)
[2017-11-30] MEDS: TRIAMCINOLONE ACETONIDE 0.1% TOPICAL CREAM 15GM TUBE. TP SCH ×2 (08:07→21:45)
[2017-11-30] MEDS: TAMSULOSIN 0.4 MG CAP.ER.24H. PO SCH (08:07)
[2017-11-30] MEDS: GABAPENTIN 300 MG CAPSULE. PO SCH ×3 (08:07→21:37)
[2017-11-30] MEDS: CARVEDILOL 3.125 MG TABLET. PO SCH (08:08)
[2017-11-30] MEDS: oxyCODONE/APAP 5/325 1 TAB TABLET PO PRN (08:08)
[2017-11-30] MEDS: valACYclovir 500 MG TABLET. PO SCH ×3 (08:08→21:37)
[2017-11-30] MEDS: LISINOPRIL 5 MG TABLET. PO SCH (08:09)
[2017-11-30] MEDS: INSULIN LISPRO 300 UNITS/3 ML INSULN.PEN. SQ SCH ×3 (08:16→16:50)
[2017-11-30] MEDS: [UNRECOGNIZED DRUG - REMARK] SQ SCH ×2 (08:16→21:00)
[2017-11-30 11:00] VITALS: BP 104/76
[2017-11-30] MEDS ORDERED: CARVEDILOL 3.125 MG TABLET. PO ONE (11:30)
--- NOTE | 2017-11-30 12:48 | PDOC ---
PROGRESS NOTES Chief Complaint Chief Complaint dizzy/ lightheaded, presyncope, need to rule out orthostatic hypotension acute pain, skin rash, shingles, VZV PPM H/O CAD WITH stents dm2 on insulin COPD tobaccoism HTN HLD GERD depression BPH marijuana use h/o stroke with mild rt side weakness groin aron dermatitis History of Present Illness History of Present Illness IV antiviral topical pain treatment CV following tele, check orthostatic BP nystatin powder for groin area Vitals Vitals Vital Signs Date Time Temp Pulse Resp B/P (MAP) Pulse Ox O2 Delivery O2 Flow Rate FiO2 11/30/17 12:19 109 104/76 11/30/17 12:09 91 Nasal Cannula 2.0 11/30/17 11:00 97.8 24 97.8 Physical Exam General: Alert, Oriented X3, Cooperative, No acute distress Heart: Normal S1, Normal S2, No murmurs Abdomen: Normal bowel sounds, Soft Extremities: No edema Skin: Other Labs LABS Laboratory Tests Test 11/29/17 16:57 11/29/17 20:11 11/30/17 05:20 11/30/17 07:34 Glucose (Fingerstick) 140 mg/dL (70-99) 183 mg/dL (70-99) 173 mg/dL (70-99) O2 Saturation 93 % (92-99) Arterial Blood pH 7.39 (7.35-7.45) Arterial Blood pCO2 at Patient Temp 37 mmHg (35-46) Arterial Blood pO2 at Patient Temp 67 mmHg (65-108) Arterial Blood HCO3 22 mmol/L (21-28) Arterial Blood Base Excess -2 mmol/L (-3-3) FiO2 28 Test 11/30/17 11:50 Glucose (Fingerstick) 173 mg/dL (70-99) Review of Systems Review of Systems pain is severe, some distress, no event Assessment and Plan Assessmemt and Plan Problems Medical Problems: (1) COPD (chronic obstructive pulmonary disease) Status: Acute (2) Pre-syncope Status: Acute Comment Review of Relevant I have reviewed the following items bud (where applicable) has been applied. Labs Laboratory Tests Test 11/28/17 19:10 11/28/17 20:16 11/29/17 03:05 11/29/17 07:51 Troponin I Quantitative < 0.017 ng/mL (0.000-0.055) Glucose (Fingerstick) 301 mg/dL (70-99) 87 mg/dL (70-99) White Blood Count 7.2 x10^3/uL (4.0-11.0) Red Blood Count 4.78 x10^6/uL (4.30-5.70) Hemoglobin 14.5 g/dL (13.0-17.5) Hematocrit 42.8 % (39.0-53.0) Mean Corpuscular Volume 90 fL (79-100) Mean Corpuscular Hemoglobin 30 pg (25-35) Mean Corpuscular Hemoglobin Concent 34 g/dL (31-37) Red Cell Distribution Width 13.9 % (11.5-14.5) Platelet Count 140 x10^3/uL (140-400) Neutrophils (%) (Auto) 66 % (31-73) Lymphocytes (%) (Auto) 20 % (24-48) Monocytes (%) (Auto) 12 % (0-9) Eosinophils (%) (Auto) 2 % (0-3) Basophils (%) (Auto) 1 % (0-3) Neutrophils # (Auto) 4.8 x10^3uL (1.8-7.7) Lymphocytes # (Auto) 1.4 x10^3/uL (1.0-4.8) Monocytes # (Auto) 0.8 x10^3/uL (0.0-1.1) Eosinophils # (Auto) 0.2 x10^3/uL (0.0-0.7) Basophils # (Auto) 0.1 x10^3/uL (0.0-0.2) Sodium Level 142 mmol/L (136-145) Potassium Level 3.7 mmol/L (3.5-5.1) Chloride Level 108 mmol/L (98-107) Carbon Dioxide Level 25 mmol/L (21-32) Anion Gap 9 (6-14) Blood Urea Nitrogen 22 mg/dL (8-26) Creatinine 1.1 mg/dL (0.7-1.3) Estimated GFR (Cockcroft-Gault) 67.4 BUN/Creatinine Ratio 20 (6-20) Glucose Level 94 mg/dL (70-99) Calcium Level 8.6 mg/dL (8.5-10.1) Total Bilirubin 0.4 mg/dL (0.2-1.0) Aspartate Amino Transf (AST/SGOT) 21 U/L (15-37) Alanine Aminotransferase (ALT/SGPT) 31 U/L (16-63) Alkaline Phosphatase 95 U/L (46-116) Total Protein 6.3 g/dL (6.4-8.2) Albumin 2.9 g/dL (3.4-5.0) Albumin/Globulin Ratio 0.9 (1.0-1.7) Triglycerides Level 388 mg/dL (0-150) Cholesterol Level 154 mg/dL (0-200) LDL Cholesterol, Calculated 61 mg/dL (0-100) VLDL Cholesterol, Calculated 78 mg/dL (0-40) Non-HDL Cholesterol Calculated 139 mg/dL (0-129) HDL Cholesterol 15 mg/dL (40-60) Cholesterol/HDL Ratio 10.3 Test 11/29/17 11:35 11/29/17 16:57 11/29/17 20:11 11/30/17 05:20 Glucose (Fingerstick) 181 mg/dL (70-99) 140 mg/dL (70-99) 183 mg/dL (70-99) O2 Saturation 93 % (92-99) Arterial Blood pH 7.39 (7.35-7.45) Arterial Blood pCO2 at Patient Temp 37 mmHg (35-46) Arterial Blood pO2 at Patient Temp 67 mmHg (65-108) Arterial Blood HCO3 22 mmol/L (21-28) Arterial Blood Base Excess -2 mmol/L (-3-3) FiO2 28 Test 11/30/17 07:34 11/30/17 11:50 Glucose (Fingerstick) 173 mg/dL (70-99) 173 mg/dL (70-99) Laboratory Tests Test 11/29/17 16:57 11/29/17 20:11 11/30/17 05:20 11/30/17 07:34 Glucose (Fingerstick) 140 mg/dL (70-99) 183 mg/dL (70-99) 173 mg/dL (70-99) O2 Saturation 93 % (92-99) Arterial Blood pH 7.39 (7.35-7.45) Arterial Blood pCO2 at Patient Temp 37 mmHg (35-46) Arterial Blood pO2 at Patient Temp 67 mmHg (65-108) Arterial Blood HCO3 22 mmol/L (21-28) Arterial Blood Base Excess -2 mmol/L (-3-3) FiO2 28 Test 11/30/17 11:50 Glucose (Fingerstick) 173 mg/dL (70-99) Microbiology 11/28/17 Blood Culture - Preliminary, Resulted NO GROWTH AFTER 2 DAYS Medications Current Medications Albuterol/ Ipratropium (Duoneb) 3 ml 1X ONCE NEB Last administered on at 10:01; Start 11/28/17 at 10:00; Stop 11/28/17 at 10:01; Status DC Lidocaine HCl (Lidocaine Pf 2% Vial) 5 ml 1X ONCE IJ ; Start 11/28/17 at 11:30; Stop 11/28/17 at 11:39; Status DC Sodium Chloride 1,000 ml @ 1,000 mls/hr 1X ONCE IV Last administered on at 11:51; Start 11/28/17 at 11:30; Stop 11/28/17 at 12:29; Status DC Iohexol (Omnipaque 300 Mg/ml) 75 ml 1X ONCE IV Last administered on 11/28/17at 12:00; Start 11/28/17 at 11:45; Stop 11/28/17 at 11:46; Status DC Info (CONTRAST GIVEN -- Rx MONITORING) 1 each PRN DAILY PRN MC SEE COMMENTS; Start 11/28/17 at 11:45; Stop 11/30/17 at 11:44; Status DC Albuterol/ Ipratropium (Duoneb) 3 ml 1X ONCE NEB Last administered on at 13:48; Start 11/28/17 at 13:00; Stop 11/28/17 at 13:01; Status DC Ondansetron HCl (Zofran) 4 mg PRN Q8HRS PRN IV NAUSEA/VOMITING; Start 11/28/17 at 13:00; Stop 11/28/17 at 13:52; Status DC Morphine Sulfate (Morphine Sulfate) 2 mg PRN Q2HR PRN IV PAIN; Start 11/28/17 at 13:00; Stop 11/28/17 at 13:51; Status DC Acetaminophen (Tylenol) 650 mg PRN Q4HRS PRN PO FEVER; Start 11/28/17 at 13:00; Stop 11/28/17 at 13:51; Status DC Ceftriaxone Sodium 50 ml @ 100 mls/hr 1X ONCE IV Last administered on at 13:56; Start 11/28/17 at 14:00; Stop 11/28/17 at 14:29; Status DC Azithromycin 500 mg/Sodium Chloride 250 ml @ 250 mls/hr 1X ONCE IV Last administered on 11/28/17at 15:58; Start 11/28/17 at 14:30; Stop 11/28/17 at 15:29; Status DC Sodium Chloride 1,000 ml @ 1,000 mls/hr 1X ONCE IV Last administered on at 13:39; Start 11/28/17 at 13:45; Stop 11/28/17 at 14:44; Status DC Sodium Chloride 1,000 ml @ 1,000 mls/hr 1X ONCE IV Last administered on at 16:15; Start 11/28/17 at 13:45; Stop 11/28/17 at 14:44; Status DC Acetaminophen (Tylenol) 650 mg PRN Q6HRS PRN PO FEVER; Start 11/28/17 at 13:45 Ondansetron HCl (Zofran) 4 mg PRN Q6HRS PRN IV NAUSEA/VOMITING; Start 11/28/17 at 13:45 Morphine Sulfate (Morphine Sulfate) 2 mg PRN Q2HR PRN IV MODERATE TO SEVERE PAIN Last administered on 11/30/17at 04:43; Start 11/28/17 at 13:45 Tramadol HCl (Ultram) 50 mg PRN Q6HRS PRN PO MILD TO MODERATE PAIN Last administered on 11/29/17at 13:22; Start 11/28/17 at 13:45 Hydralazine HCl (Apresoline Inj) 10 mg PRN Q4HRS PRN IVP ELEVATED BP, SEE COMMENTS; Start 11/28/17 at 13:45 Docusate Sodium (Colace) 100 mg PRN DAILY PRN PO CONSTIPATION; Start 11/28/17 at 13:45 Albuterol/ Ipratropium (Duoneb) 3 ml RTQID NEB Last administered on 11/30/17at 12 :08; Start 11/28/17 at 16:00 Albuterol Sulfate (Ventolin Neb Soln) 2.5 mg PRN Q2HR PRN NEB SHORTNESS OF BREATH Last administered on 11/30/17 04:45; Start 11/28/17 at 13:45 Guaifenesin (Mucinex) 600 mg BID PO Last administered on 11/30/17 08:07; Start 11/28/17 at 14:30 Triamcinolone Acetonide (Kenalog) 1 karsten BID TP Last administered on 11/30/17 08 :07; Start 11/28/17 at 21:00 Nystatin (Nystop) 1 karsten BID TP Last administered on 11/30/17 08:06; Start at 21:00 Diphenhydramine HCl (Benadryl) 25 mg PRN Q6HRS PRN PO ITCHING Last administered on 11/29/17 23:11; Start 11/28/17 at 13:45 Insulin Human Lispro (HumaLOG) 0-9 UNITS TIDWMEALS SQ Last administered on 12:21; Start 11/28/17 at 17:00 Dextrose (Dextrose 50%-Water Syringe) 12.5 gm PRN Q15MIN PRN IV SEE COMMENTS; Start 11/28/17 at 13:45 Oxycodone/ Acetaminophen (Percocet 5/325) 1 tab PRN Q6HRS PRN PO SEVERE PAIN Last administered on 11/30/17 08:08; Start 11/28/17 at 17:00 Tamsulosin HCl (Flomax) 0.4 mg DAILY PO Last administered on 11/30/17 08:07; Start 11/28/17 at 18:00 Aspirin (Jorge Luis Aspirin) 325 mg DAILY PO Last administered on 11/30/17 08:07; Start 11/28/17 at 18:00 Duloxetine HCl (Cymbalta) 60 mg DAILY PO Last administered on 11/30/17 08:07; Start 11/28/17 at 18:00 Gabapentin (Neurontin) 300 mg TID PO Last administered on 11/30/17 08:07; Start 11/28/17 at 21:00 Pantoprazole Sodium (Protonix) 40 mg DAILYAC PO Last administered on 11/30/17 08:07; Start 11/28/17 at 18:00 Valacyclovir HCl (Valtrex) 1,000 mg TID PO Last administered on 11/30/17 08:08 ; Start 11/28/17 at 21:00 Insulin Human Lispro (HumaLOG) 6 units 1X ONCE SQ Last administered on at 20:52; Start 11/28/17 at 20:45; Stop 11/28/17 at 20:46; Status DC Non-Formulary Medication 1 ea BID SQ Last administered on 11/30/17at 08:16; Start 11/28/17 at 23:00 Pneumococcal Polyvalent Vaccine (Do NOT chart on this placeholder) 1 each 1X ONCE MC ; Start 11/29/17 at 00:00; Stop 11/29/17 at 00:01; Status UNV Pneumococcal Polyvalent Vaccine (Pneumovax 23) 0.5 ml ONCE ONCE VAX IM Last administered on 11/29/17at 18:20; Start 11/29/17 at 10:30; Stop 11/29/17 at 10:31; Status DC Lidocaine HCl (Xylocaine 2% Topical 5gm Tube) 1 karsten PRN Q6HRS PRN TP pain Last administered on 11/29/17at 20:22; Start 11/29/17 at 13:30 Fenofibrate (Lofibra) 54 mg DAILY PO ; Start 11/29/17 at 14:00; Stop 11/29/17 at 14:00; Status DC Atorvastatin Calcium (Lipitor) 20 mg HS PO Last administered on 11/29/17 20:20 ; Start 11/29/17 at 21:00 Carvedilol (Coreg) 3.125 mg BIDWMEALS PO Last administered on 11/30/17 08:08; Start 11/29/17 at 17:00; Stop 11/30/17 at 11:19; Status DC Lisinopril (Prinivil) 2.5 mg DAILY PO Last administered on 11/30/17 08:09; Start 11/29/17 at 14:00 Alprazolam (Xanax) 0.5 mg PRN Q8HRS PRN PO ANXIETY / AGITATION Last administered on 11/30/17at 08:08; Start 11/30/17 at 00:15 Throat Lozenges (Cepacol Sore Throat Lozenge) 1 stuart PRN Q2HRS PRN PO SORE THROAT Last administered on 11/30/17at 10:55; Start 11/30/17 at 00:15 Alprazolam (Xanax) 0.5 mg 1X ONCE PO Last administered on 11/30/17at 05:14; Start 11/30/17 at 05:15; Stop 11/30/17 at 05:17; Status DC Carvedilol (Coreg) 6.25 mg BIDWMEALS PO ; Start 11/30/17 at 17:00 Carvedilol (Coreg) 3.125 mg 1X ONCE PO Last administered on 11/30/17at 12:19; Start 11/30/17 at 11:30; Stop 11/30/17 at 11:31; Status DC Active Scripts Active Eliquis (Apixaban) 5 Mg Tablet 5 Mg PO BID Reported Tresiba Flextouch U-200 (Insulin Degludec) 200 Unit/1 Ml Insuln.pen 75 Unit SQ BID Oxycodone Hcl 10 Mg Tablet 10 Tamsulosin Hcl 0.4 Mg Cap.er.24h 1 Cap PO DAILY Gabapentin 300 Mg Capsule 300 Mg PO TID Aspirin 325 Mg Tablet 1 Tab PO DAILY Prilosec Otc (Omeprazole Magnesium) 20 Mg Tablet.dr 1 Tab PO DAILY Cymbalta (Duloxetine Hcl) 60 Mg Capsule.dr 1 Cap PO DAILY Hydroxychloroquine Sulfate 200 Mg Tablet 1 Tab PO BID Finasteride 5 Mg Tablet 1 Tab PO DAILY Zoloft (Sertraline Hcl) 50 Mg Tablet 1 Tab PO DAILY Omeprazole 40 Mg Capsule.dr 1 Cap PO DAILY Metformin Hcl Er (Metformin Hcl) 1,000 Mg Tab.er.24 1,000 Mg PO DAILYWBKFT Cephalexin 500 Mg Capsule 2 Cap PO BID 10 Days Hydrocodone-Apap 7.5-325 (Hydrocodone Bit/Acetaminophen) 1 Each Tablet 1 Tab PO PRN Q6HRS PRN NITROGLYCERIN SubLingual (Nitroglycerin) 0.4 Mg Tab.subl 0.4 Mg SL PRN Q5MIN PRN Levemir (Insulin Detemir) 100 Unit/1 Ml Vial 50 Unit SQ BID Breo Ellipta 200-25 Mcg INH (Fluticasone/Vilanterol) 1 Each Blst.w.dev 2 Puff IH DAILY PRN Atorvastatin Calcium 20 Mg Tablet 20 Mg PO HS Gabapentin 300 Mg Capsule 300 Mg PO TID NEXT DOSE DUE AT 2 PM AND AT BEDTIME Carvedilol 3.125 Mg Tablet 1 Tab PO BID NEXT DOSE DUE WITH SUPPER TODAY Lisinopril 2.5 Mg Tablet 1 Tab PO DAILY NEXT DOSE DUE ON 11/05/14 Plavix (Clopidogrel Bisulfate) 75 Mg Tablet 1 Tab PO DAILY NEXT DOSE DUE ON 11/05/14 Tamsulosin Hcl 0.4 Mg Cap.er.24h 0.4 Mg PO HS MAY TAKE ANYTIME Prilosec (Omeprazole) 40 Mg Capsule.dr 40 Mg PO DAILY MAY TAKE ANY TIME Aspir 81 (Aspirin) 81 Mg Tablet.dr 81 Mg PO DAILY NEXT DOSE DUE ON 11/05/14 Vitals/I & O Vital Sign - Last 24 Hours 11/29/17 11/29/17 11/29/17 11/29/17 14:38 14:55 16:33 18:18 Temp 96.9 96.9 Pulse 104 106 106 Resp 21 B/P (MAP) 120/74 105/66 (79) 105/66 Pulse Ox 94 O2 Delivery Room Air Room Air 11/29/17 11/29/17 11/29/17 11/29/17 19:23 19:43 19:44 19:45 Temp 97.1 97.1 Pulse 114 118 118 Resp 20 B/P (MAP) 103/58 (73) 110/79 (89) 119/80 (93) Pulse Ox 93 O2 Delivery Room Air Room Air 11/29/17 11/29/17 11/29/17 11/30/17 20:10 23:17 23:28 03:43 Temp 97.7 97.7 97.7 97.7 Pulse 115 102 Resp 20 24 B/P (MAP) 125/76 (92) 121/82 (95) Pulse Ox 91 92 94 O2 Delivery Room Air Room Air Room Air Nasal Cannula O2 Flow Rate 2.0 11/30/17 11/30/17 11/30/17 11/30/17 04:45 07:00 07:39 08:07 Temp 98.6 98.6 Pulse 110 Resp 26 B/P (MAP) 124/89 (101) Pulse Ox 94 94 O2 Delivery Room Air Nasal Cannula Room Air Nasal Cannula O2 Flow Rate 2.0 2.0 11/30/17 11/30/17 11/30/17 11/30/17 08:08 08:08 08:09 09:02 Pulse 110 110 B/P (MAP) 124/89 124/89 O2 Delivery Nasal Cannula Nasal Cannula O2 Flow Rate 2.0 2.0 11/30/17 11/30/17 11/30/17 11:00 12:09 12:19 Temp 97.8 97.8 Pulse 109 109 Resp 24 B/P (MAP) 104/76 (85) 104/76 Pulse Ox 92 91 O2 Delivery Nasal Cannula Nasal Cannula O2 Flow Rate 2.0 2.0 Intake and Output 11/29/17 11/29/17 11/30/17 15:00 23:00 07:00 Intake Total 440 ml Output Total 500 ml 400 ml 900 ml Balance -500 ml -400 ml -460 ml MEENA GARCES MD Nov 30, 2017 12:48
[2017-11-30] MEDS: LIDOCAINE 2% TOPICAL JELLY 5GM TUBE. TP SCH ×3 (13:24→22:00)
--- NOTE | 2017-11-30 14:50 | PDOC ---
PROGRESS NOTES Assessment Problems Medical Problems: (1) COPD (chronic obstructive pulmonary disease) Status: Acute (2) Pre-syncope Status: Acute Shingles Presyncope feelings in a patient with known carotid artery hypersensitivity syndrome as well as diabetic neuropathy, undoubtedly with a component of autonomic neuropathy. No evidence of any primary neurological problem such as stroke, cerebrovascular disease, or seizure. Diabetic neuropathy Cervical spondylosis without radiculopathy on EMG Multiple entrapment neuropathies: bilateral carpal tunnel syndrome, left cubital tunnel syndrome, and right Guyon's canal syndrome Not orthostatic, pacemaker checked out fine COPD Plan Symptomatic treatment of varicella Will follow Subjective Feels weak and tired, does not feel like eating Objective Vital Signs Date Time Temp Pulse Resp B/P (MAP) Pulse Ox O2 Delivery O2 Flow Rate FiO2 11/30/17 13:47 Nasal Cannula 2.0 11/30/17 12:19 109 104/76 11/30/17 12:09 91 11/30/17 11:00 97.8 24 97.8 Intake and Output 11/30/17 07:00 Intake Total 440 ml Output Total 1800 ml Balance -1360 ml Intake Oral 440 ml Output Urine Total 1800 ml PHYSICAL EXAM Less alert. Oriented to time, place and person. PERRL. EOMI. CN: no focal findings. Muscle tone: normal. Muscle strength: 4/5 DTR: 0+ Plantar reflex: flexor Gait: not examined in bed. Sensory exam: stocking loss No cerebellar signs elicited. Review of Relevant I have reviewed the following items bud (where applicable) has been applied. Labs Laboratory Tests Test 11/28/17 19:10 11/28/17 20:16 11/29/17 03:05 11/29/17 07:51 Troponin I Quantitative < 0.017 ng/mL (0.000-0.055) Glucose (Fingerstick) 301 mg/dL (70-99) 87 mg/dL (70-99) White Blood Count 7.2 x10^3/uL (4.0-11.0) Red Blood Count 4.78 x10^6/uL (4.30-5.70) Hemoglobin 14.5 g/dL (13.0-17.5) Hematocrit 42.8 % (39.0-53.0) Mean Corpuscular Volume 90 fL (79-100) Mean Corpuscular Hemoglobin 30 pg (25-35) Mean Corpuscular Hemoglobin Concent 34 g/dL (31-37) Red Cell Distribution Width 13.9 % (11.5-14.5) Platelet Count 140 x10^3/uL (140-400) Neutrophils (%) (Auto) 66 % (31-73) Lymphocytes (%) (Auto) 20 % (24-48) Monocytes (%) (Auto) 12 % (0-9) Eosinophils (%) (Auto) 2 % (0-3) Basophils (%) (Auto) 1 % (0-3) Neutrophils # (Auto) 4.8 x10^3uL (1.8-7.7) Lymphocytes # (Auto) 1.4 x10^3/uL (1.0-4.8) Monocytes # (Auto) 0.8 x10^3/uL (0.0-1.1) Eosinophils # (Auto) 0.2 x10^3/uL (0.0-0.7) Basophils # (Auto) 0.1 x10^3/uL (0.0-0.2) Sodium Level 142 mmol/L (136-145) Potassium Level 3.7 mmol/L (3.5-5.1) Chloride Level 108 mmol/L (98-107) Carbon Dioxide Level 25 mmol/L (21-32) Anion Gap 9 (6-14) Blood Urea Nitrogen 22 mg/dL (8-26) Creatinine 1.1 mg/dL (0.7-1.3) Estimated GFR (Cockcroft-Gault) 67.4 BUN/Creatinine Ratio 20 (6-20) Glucose Level 94 mg/dL (70-99) Calcium Level 8.6 mg/dL (8.5-10.1) Total Bilirubin 0.4 mg/dL (0.2-1.0) Aspartate Amino Transf (AST/SGOT) 21 U/L (15-37) Alanine Aminotransferase (ALT/SGPT) 31 U/L (16-63) Alkaline Phosphatase 95 U/L (46-116) Total Protein 6.3 g/dL (6.4-8.2) Albumin 2.9 g/dL (3.4-5.0) Albumin/Globulin Ratio 0.9 (1.0-1.7) Triglycerides Level 388 mg/dL (0-150) Cholesterol Level 154 mg/dL (0-200) LDL Cholesterol, Calculated 61 mg/dL (0-100) VLDL Cholesterol, Calculated 78 mg/dL (0-40) Non-HDL Cholesterol Calculated 139 mg/dL (0-129) HDL Cholesterol 15 mg/dL (40-60) Cholesterol/HDL Ratio 10.3 Test 11/29/17 11:35 11/29/17 16:57 11/29/17 20:11 11/30/17 05:20 Glucose (Fingerstick) 181 mg/dL (70-99) 140 mg/dL (70-99) 183 mg/dL (70-99) O2 Saturation 93 % (92-99) Arterial Blood pH 7.39 (7.35-7.45) Arterial Blood pCO2 at Patient Temp 37 mmHg (35-46) Arterial Blood pO2 at Patient Temp 67 mmHg (65-108) Arterial Blood HCO3 22 mmol/L (21-28) Arterial Blood Base Excess -2 mmol/L (-3-3) FiO2 28 Test 11/30/17 07:34 11/30/17 11:50 Glucose (Fingerstick) 173 mg/dL (70-99) 173 mg/dL (70-99) Laboratory Tests Test 11/29/17 16:57 11/29/17 20:11 11/30/17 05:20 11/30/17 07:34 Glucose (Fingerstick) 140 mg/dL (70-99) 183 mg/dL (70-99) 173 mg/dL (70-99) O2 Saturation 93 % (92-99) Arterial Blood pH 7.39 (7.35-7.45) Arterial Blood pCO2 at Patient Temp 37 mmHg (35-46) Arterial Blood pO2 at Patient Temp 67 mmHg (65-108) Arterial Blood HCO3 22 mmol/L (21-28) Arterial Blood Base Excess -2 mmol/L (-3-3) FiO2 28 Test 11/30/17 11:50 Glucose (Fingerstick) 173 mg/dL (70-99) Microbiology 11/28/17 Blood Culture - Preliminary, Resulted NO GROWTH AFTER 2 DAYS Medications Current Medications Albuterol/ Ipratropium (Duoneb) 3 ml 1X ONCE NEB Last administered on at 10:01; Start 11/28/17 at 10:00; Stop 11/28/17 at 10:01; Status DC Lidocaine HCl (Lidocaine Pf 2% Vial) 5 ml 1X ONCE IJ ; Start 11/28/17 at 11:30; Stop 11/28/17 at 11:39; Status DC Sodium Chloride 1,000 ml @ 1,000 mls/hr 1X ONCE IV Last administered on at 11:51; Start 11/28/17 at 11:30; Stop 11/28/17 at 12:29; Status DC Iohexol (Omnipaque 300 Mg/ml) 75 ml 1X ONCE IV Last administered on 11/28/17at 12:00; Start 11/28/17 at 11:45; Stop 11/28/17 at 11:46; Status DC Info (CONTRAST GIVEN -- Rx MONITORING) 1 each PRN DAILY PRN MC SEE COMMENTS; Start 11/28/17 at 11:45; Stop 11/30/17 at 11:44; Status DC Albuterol/ Ipratropium (Duoneb) 3 ml 1X ONCE NEB Last administered on at 13:48; Start 11/28/17 at 13:00; Stop 11/28/17 at 13:01; Status DC Ondansetron HCl (Zofran) 4 mg PRN Q8HRS PRN IV NAUSEA/VOMITING; Start 11/28/17 at 13:00; Stop 11/28/17 at 13:52; Status DC Morphine Sulfate (Morphine Sulfate) 2 mg PRN Q2HR PRN IV PAIN; Start 11/28/17 at 13:00; Stop 11/28/17 at 13:51; Status DC Acetaminophen (Tylenol) 650 mg PRN Q4HRS PRN PO FEVER; Start 11/28/17 at 13:00; Stop 11/28/17 at 13:51; Status DC Ceftriaxone Sodium 50 ml @ 100 mls/hr 1X ONCE IV Last administered on at 13:56; Start 11/28/17 at 14:00; Stop 11/28/17 at 14:29; Status DC Azithromycin 500 mg/Sodium Chloride 250 ml @ 250 mls/hr 1X ONCE IV Last administered on 11/28/17at 15:58; Start 11/28/17 at 14:30; Stop 11/28/17 at 15:29; Status DC Sodium Chloride 1,000 ml @ 1,000 mls/hr 1X ONCE IV Last administered on 13:39; Start 11/28/17 at 13:45; Stop 11/28/17 at 14:44; Status DC Sodium Chloride 1,000 ml @ 1,000 mls/hr 1X ONCE IV Last administered on at 16:15; Start 11/28/17 at 13:45; Stop 11/28/17 at 14:44; Status DC Acetaminophen (Tylenol) 650 mg PRN Q6HRS PRN PO FEVER; Start 11/28/17 at 13:45 Ondansetron HCl (Zofran) 4 mg PRN Q6HRS PRN IV NAUSEA/VOMITING; Start 11/28/17 at 13:45 Morphine Sulfate (Morphine Sulfate) 2 mg PRN Q2HR PRN IV MODERATE TO SEVERE PAIN Last administered on 11/30/17 04:43; Start 11/28/17 at 13:45; Stop 11/30/17 at 12:59; Status DC Tramadol HCl (Ultram) 50 mg PRN Q6HRS PRN PO MILD TO MODERATE PAIN Last administered on 11/29/17at 13:22; Start 11/28/17 at 13:45 Hydralazine HCl (Apresoline Inj) 10 mg PRN Q4HRS PRN IVP ELEVATED BP, SEE COMMENTS; Start 11/28/17 at 13:45 Docusate Sodium (Colace) 100 mg PRN DAILY PRN PO CONSTIPATION; Start 11/28/17 at 13:45 Albuterol/ Ipratropium (Duoneb) 3 ml RTQID NEB Last administered on 11/30/17at 12 :08; Start 11/28/17 at 16:00 Albuterol Sulfate (Ventolin Neb Soln) 2.5 mg PRN Q2HR PRN NEB SHORTNESS OF BREATH Last administered on 11/30/17 04:45; Start 11/28/17 at 13:45 Guaifenesin (Mucinex) 600 mg BID PO Last administered on 11/30/17 08:07; Start 11/28/17 at 14:30 Triamcinolone Acetonide (Kenalog) 1 karsten BID TP Last administered on 11/30/17 08 :07; Start 11/28/17 at 21:00 Nystatin (Nystop) 1 karsten BID TP Last administered on 11/30/17 08:06; Start at 21:00 Diphenhydramine HCl (Benadryl) 25 mg PRN Q6HRS PRN PO ITCHING Last administered on 11/29/17 23:11; Start 11/28/17 at 13:45 Insulin Human Lispro (HumaLOG) 0-9 UNITS TIDWMEALS SQ Last administered on 12:21; Start 11/28/17 at 17:00 Dextrose (Dextrose 50%-Water Syringe) 12.5 gm PRN Q15MIN PRN IV SEE COMMENTS; Start 11/28/17 at 13:45 Oxycodone/ Acetaminophen (Percocet 5/325) 1 tab PRN Q6HRS PRN PO SEVERE PAIN Last administered on 11/30/17 08:08; Start 11/28/17 at 17:00 Tamsulosin HCl (Flomax) 0.4 mg DAILY PO Last administered on 11/30/17 08:07; Start 11/28/17 at 18:00 Aspirin (Jorge Luis Aspirin) 325 mg DAILY PO Last administered on 11/30/17 08:07; Start 11/28/17 at 18:00 Duloxetine HCl (Cymbalta) 60 mg DAILY PO Last administered on 11/30/17 08:07; Start 11/28/17 at 18:00 Gabapentin (Neurontin) 300 mg TID PO Last administered on 11/30/17 13:23; Start 11/28/17 at 21:00 Pantoprazole Sodium (Protonix) 40 mg DAILYAC PO Last administered on 11/30/17 08:07; Start 11/28/17 at 18:00 Valacyclovir HCl (Valtrex) 1,000 mg TID PO Last administered on 11/30/17 13:23 ; Start 11/28/17 at 21:00 Insulin Human Lispro (HumaLOG) 6 units 1X ONCE SQ Last administered on 20:52; Start 11/28/17 at 20:45; Stop 11/28/17 at 20:46; Status DC Non-Formulary Medication 1 ea BID SQ Last administered on 11/30/17 08:16; Start 11/28/17 at 23:00 Pneumococcal Polyvalent Vaccine (Do NOT chart on this placeholder) 1 each 1X ONCE MC ; Start 11/29/17 at 00:00; Stop 11/29/17 at 00:01; Status UNV Pneumococcal Polyvalent Vaccine (Pneumovax 23) 0.5 ml ONCE ONCE VAX IM Last administered on 11/29/17at 18:20; Start 11/29/17 at 10:30; Stop 11/29/17 at 10:31; Status DC Lidocaine HCl (Xylocaine 2% Topical 5gm Tube) 1 karsten PRN Q6HRS PRN TP pain Last administered on 11/29/17at 20:22; Start 11/29/17 at 13:30; Stop 11/30/17 at 12:59; Status DC Fenofibrate (Lofibra) 54 mg DAILY PO ; Start 11/29/17 at 14:00; Stop 11/29/17 at 14:00; Status DC Atorvastatin Calcium (Lipitor) 20 mg HS PO Last administered on 11/29/17at 20:20 ; Start 11/29/17 at 21:00 Carvedilol (Coreg) 3.125 mg BIDWMEALS PO Last administered on 11/30/17at 08:08; Start 11/29/17 at 17:00; Stop 11/30/17 at 11:19; Status DC Lisinopril (Prinivil) 2.5 mg DAILY PO Last administered on 11/30/17at 08:09; Start 11/29/17 at 14:00 Alprazolam (Xanax) 0.5 mg PRN Q8HRS PRN PO ANXIETY / AGITATION Last administered on 11/30/17at 08:08; Start 11/30/17 at 00:15 Throat Lozenges (Cepacol Sore Throat Lozenge) 1 stuart PRN Q2HRS PRN PO SORE THROAT Last administered on 11/30/17at 10:55; Start 11/30/17 at 00:15 Alprazolam (Xanax) 0.5 mg 1X ONCE PO Last administered on 11/30/17at 05:14; Start 11/30/17 at 05:15; Stop 11/30/17 at 05:17; Status DC Carvedilol (Coreg) 6.25 mg BIDWMEALS PO ; Start 11/30/17 at 17:00 Carvedilol (Coreg) 3.125 mg 1X ONCE PO Last administered on 11/30/17at 12:19; Start 11/30/17 at 11:30; Stop 11/30/17 at 11:31; Status DC Lidocaine HCl (Xylocaine 2% Topical 5gm Tube) 1 karsten Q4HRS W/A TP Last administered on 11/30/17at 13:24; Start 11/30/17 at 14:00 Morphine Sulfate (Morphine Sulfate) 4 mg PRN Q2HR PRN IV MODERATE TO SEVERE PAIN Last administered on 11/30/17at 13:24; Start 11/30/17 at 13:00 Active Scripts Active Eliquis (Apixaban) 5 Mg Tablet 5 Mg PO BID Reported Tresiba Flextouch U-200 (Insulin Degludec) 200 Unit/1 Ml Insuln.pen 75 Unit SQ BID Oxycodone Hcl 10 Mg Tablet 10 Tamsulosin Hcl 0.4 Mg Cap.er.24h 1 Cap PO DAILY Gabapentin 300 Mg Capsule 300 Mg PO TID Aspirin 325 Mg Tablet 1 Tab PO DAILY Prilosec Otc (Omeprazole Magnesium) 20 Mg Tablet.dr 1 Tab PO DAILY Cymbalta (Duloxetine Hcl) 60 Mg Capsule.dr 1 Cap PO DAILY Hydroxychloroquine Sulfate 200 Mg Tablet 1 Tab PO BID Finasteride 5 Mg Tablet 1 Tab PO DAILY Zoloft (Sertraline Hcl) 50 Mg Tablet 1 Tab PO DAILY Omeprazole 40 Mg Capsule.dr 1 Cap PO DAILY Metformin Hcl Er (Metformin Hcl) 1,000 Mg Tab.er.24 1,000 Mg PO DAILYWBKFT Cephalexin 500 Mg Capsule 2 Cap PO BID 10 Days Hydrocodone-Apap 7.5-325 (Hydrocodone Bit/Acetaminophen) 1 Each Tablet 1 Tab PO PRN Q6HRS PRN NITROGLYCERIN SubLingual (Nitroglycerin) 0.4 Mg Tab.subl 0.4 Mg SL PRN Q5MIN PRN Levemir (Insulin Detemir) 100 Unit/1 Ml Vial 50 Unit SQ BID Breo Ellipta 200-25 Mcg INH (Fluticasone/Vilanterol) 1 Each Blst.w.dev 2 Puff IH DAILY PRN Atorvastatin Calcium 20 Mg Tablet 20 Mg PO HS Gabapentin 300 Mg Capsule 300 Mg PO TID NEXT DOSE DUE AT 2 PM AND AT BEDTIME Carvedilol 3.125 Mg Tablet 1 Tab PO BID NEXT DOSE DUE WITH SUPPER TODAY Lisinopril 2.5 Mg Tablet 1 Tab PO DAILY NEXT DOSE DUE ON 11/05/14 Plavix (Clopidogrel Bisulfate) 75 Mg Tablet 1 Tab PO DAILY NEXT DOSE DUE ON 11/05/14 Tamsulosin Hcl 0.4 Mg Cap.er.24h 0.4 Mg PO HS MAY TAKE ANYTIME Prilosec (Omeprazole) 40 Mg Capsule.dr 40 Mg PO DAILY MAY TAKE ANY TIME Aspir 81 (Aspirin) 81 Mg Tablet.dr 81 Mg PO DAILY NEXT DOSE DUE ON 11/05/14 Vitals/I & O Vital Sign - Last 24 Hours 11/29/17 11/29/17 11/29/17 11/29/17 14:55 16:33 18:18 19:23 Temp 96.9 96.9 Pulse 106 106 Resp 21 B/P (MAP) 105/66 (79) 105/66 Pulse Ox 94 O2 Delivery Room Air Room Air Room Air 11/29/17 11/29/17 11/29/17 11/29/17 19:43 19:44 19:45 20:10 Temp 97.1 97.1 Pulse 114 118 118 Resp 20 B/P (MAP) 103/58 (73) 110/79 (89) 119/80 (93) Pulse Ox 93 O2 Delivery Room Air Room Air 11/29/17 11/29/17 11/30/17 11/30/17 23:17 23:28 03:43 04:45 Temp 97.7 97.7 97.7 97.7 Pulse 115 102 Resp 20 24 B/P (MAP) 125/76 (92) 121/82 (95) Pulse Ox 91 92 94 O2 Delivery Room Air Room Air Nasal Cannula Room Air O2 Flow Rate 2.0 11/30/17 11/30/17 11/30/17 11/30/17 07:00 07:39 08:07 08:08 Temp 98.6 98.6 Pulse 110 Resp 26 B/P (MAP) 124/89 (101) Pulse Ox 94 94 O2 Delivery Nasal Cannula Room Air Nasal Cannula Nasal Cannula O2 Flow Rate 2.0 2.0 2.0 11/30/17 11/30/17 11/30/17 11/30/17 08:08 08:09 09:02 11:00 Temp 97.8 97.8 Pulse 110 110 109 Resp 24 B/P (MAP) 124/89 124/89 104/76 (85) Pulse Ox 92 O2 Delivery Nasal Cannula Nasal Cannula O2 Flow Rate 2.0 2.0 11/30/17 11/30/17 11/30/17 11/30/17 12:09 12:19 13:24 13:47 Pulse 109 B/P (MAP) 104/76 Pulse Ox 91 O2 Delivery Nasal Cannula Nasal Cannula Nasal Cannula O2 Flow Rate 2.0 2.0 2.0 Intake and Output 11/29/17 11/29/17 11/30/17 15:00 23:00 07:00 Intake Total 440 ml Output Total 500 ml 400 ml 900 ml Balance -500 ml -400 ml -460 ml DENIA PAGAN MD Nov 30, 2017 14:50
[2017-11-30 15:00] VITALS: BP 114/66
--- NOTE | 2017-11-30 15:44 | PDOC ---
PULMONARY PROGRESS NOTES Subjective C/O SOA Vitals Vital Signs Date Time Temp Pulse Resp B/P (MAP) Pulse Ox O2 Delivery O2 Flow Rate FiO2 11/30/17 15:00 99.5 109 40 114/66 (82) 95 Nasal Cannula 2.0 99.5 General: Alert, Mild Distress Lungs: Clear Cardiovascular: S1 Abdomen: Soft Neuro Exam: Alert Extremities: No Edema Skin: Warm Labs Laboratory Tests Test 11/28/17 19:10 11/28/17 20:16 11/29/17 03:05 11/29/17 07:51 Troponin I Quantitative < 0.017 ng/mL (0.000-0.055) Glucose (Fingerstick) 301 mg/dL (70-99) 87 mg/dL (70-99) White Blood Count 7.2 x10^3/uL (4.0-11.0) Red Blood Count 4.78 x10^6/uL (4.30-5.70) Hemoglobin 14.5 g/dL (13.0-17.5) Hematocrit 42.8 % (39.0-53.0) Mean Corpuscular Volume 90 fL (79-100) Mean Corpuscular Hemoglobin 30 pg (25-35) Mean Corpuscular Hemoglobin Concent 34 g/dL (31-37) Red Cell Distribution Width 13.9 % (11.5-14.5) Platelet Count 140 x10^3/uL (140-400) Neutrophils (%) (Auto) 66 % (31-73) Lymphocytes (%) (Auto) 20 % (24-48) Monocytes (%) (Auto) 12 % (0-9) Eosinophils (%) (Auto) 2 % (0-3) Basophils (%) (Auto) 1 % (0-3) Neutrophils # (Auto) 4.8 x10^3uL (1.8-7.7) Lymphocytes # (Auto) 1.4 x10^3/uL (1.0-4.8) Monocytes # (Auto) 0.8 x10^3/uL (0.0-1.1) Eosinophils # (Auto) 0.2 x10^3/uL (0.0-0.7) Basophils # (Auto) 0.1 x10^3/uL (0.0-0.2) Sodium Level 142 mmol/L (136-145) Potassium Level 3.7 mmol/L (3.5-5.1) Chloride Level 108 mmol/L (98-107) Carbon Dioxide Level 25 mmol/L (21-32) Anion Gap 9 (6-14) Blood Urea Nitrogen 22 mg/dL (8-26) Creatinine 1.1 mg/dL (0.7-1.3) Estimated GFR (Cockcroft-Gault) 67.4 BUN/Creatinine Ratio 20 (6-20) Glucose Level 94 mg/dL (70-99) Calcium Level 8.6 mg/dL (8.5-10.1) Total Bilirubin 0.4 mg/dL (0.2-1.0) Aspartate Amino Transf (AST/SGOT) 21 U/L (15-37) Alanine Aminotransferase (ALT/SGPT) 31 U/L (16-63) Alkaline Phosphatase 95 U/L (46-116) Total Protein 6.3 g/dL (6.4-8.2) Albumin 2.9 g/dL (3.4-5.0) Albumin/Globulin Ratio 0.9 (1.0-1.7) Triglycerides Level 388 mg/dL (0-150) Cholesterol Level 154 mg/dL (0-200) LDL Cholesterol, Calculated 61 mg/dL (0-100) VLDL Cholesterol, Calculated 78 mg/dL (0-40) Non-HDL Cholesterol Calculated 139 mg/dL (0-129) HDL Cholesterol 15 mg/dL (40-60) Cholesterol/HDL Ratio 10.3 Test 11/29/17 11:35 11/29/17 16:57 11/29/17 20:11 11/30/17 05:20 Glucose (Fingerstick) 181 mg/dL (70-99) 140 mg/dL (70-99) 183 mg/dL (70-99) O2 Saturation 93 % (92-99) Arterial Blood pH 7.39 (7.35-7.45) Arterial Blood pCO2 at Patient Temp 37 mmHg (35-46) Arterial Blood pO2 at Patient Temp 67 mmHg (65-108) Arterial Blood HCO3 22 mmol/L (21-28) Arterial Blood Base Excess -2 mmol/L (-3-3) FiO2 28 Test 11/30/17 07:34 11/30/17 11:50 Glucose (Fingerstick) 173 mg/dL (70-99) 173 mg/dL (70-99) Laboratory Tests Test 11/29/17 16:57 11/29/17 20:11 11/30/17 05:20 11/30/17 07:34 Glucose (Fingerstick) 140 mg/dL (70-99) 183 mg/dL (70-99) 173 mg/dL (70-99) O2 Saturation 93 % (92-99) Arterial Blood pH 7.39 (7.35-7.45) Arterial Blood pCO2 at Patient Temp 37 mmHg (35-46) Arterial Blood pO2 at Patient Temp 67 mmHg (65-108) Arterial Blood HCO3 22 mmol/L (21-28) Arterial Blood Base Excess -2 mmol/L (-3-3) FiO2 28 Test 11/30/17 11:50 Glucose (Fingerstick) 173 mg/dL (70-99) Medications Active Scripts Medications Dose Route/Sig Max Daily Dose Days Date Category Dose Instructions Tresiba Flextouch U-200 (Insulin Degludec) 200 Unit/1 Ml Insuln.pen 75 Unit SQ BID 11/28/17 Reported Oxycodone Hcl 10 Mg Tablet 10 11/28/17 Reported Tamsulosin Hcl 0.4 Mg Cap.er.24h 1 Cap PO DAILY 11/28/17 Reported Gabapentin 300 Mg Capsule 300 Mg PO TID 11/28/17 Reported Aspirin 325 Mg Tablet 1 Tab PO DAILY 11/28/17 Reported Prilosec Otc (Omeprazole Magnesium) 20 Mg Tablet. 1 Tab PO DAILY 11/28/17 Reported Cymbalta (Duloxetine Hcl) 60 Mg Capsule. 1 Cap PO DAILY 11/28/17 Reported Eliquis (Apixaban) 5 Mg Tablet 5 Mg PO BID 10/08/16 Rx Hydroxychloroquine Sulfate 200 Mg Tablet 1 Tab PO BID 10/07/16 Reported Finasteride 5 Mg Tablet 1 Tab PO DAILY 10/07/16 Reported Zoloft (Sertraline Hcl) 50 Mg Tablet 1 Tab PO DAILY 10/07/16 Reported Omeprazole 40 Mg Capsule.dr 1 Cap PO DAILY 10/07/16 Reported Metformin Hcl Er (Metformin Hcl) 1,000 Mg Tab.er.24 1,000 Mg PO DAILYWBKFT 10/07/16 Reported Cephalexin 500 Mg Capsule 2 Cap PO BID 10 10/07/16 Reported Hydrocodone-Apap 7.5-325 (Hydrocodone Bit/Acetaminophen) 1 Each Tablet 1 Tab PO PRN Q6HRS PRN 10/07/16 Reported NITROGLYCERIN SubLingual (Nitroglycerin) 0.4 Mg Tab.subl 0.4 Mg SL PRN Q5MIN PRN 10/07/16 Reported Levemir (Insulin Detemir) 100 Unit/1 Ml Vial 50 Unit SQ BID 10/07/16 Reported Breo Ellipta 200-25 Mcg INH (Fluticasone/Vilanterol) 1 Each Blst.w.dev 2 Puff IH DAILY PRN 10/07/16 Reported Atorvastatin Calcium 20 Mg Tablet 20 Mg PO HS 12/17/14 Reported Gabapentin 300 Mg Capsule 300 Mg PO TID 11/03/14 Reported NEXT DOSE DUE AT 2 PM AND AT BEDTIME Carvedilol 3.125 Mg Tablet 1 Tab PO BID 09/25/14 Reported NEXT DOSE DUE WITH SUPPER TODAY Lisinopril 2.5 Mg Tablet 1 Tab PO DAILY 09/25/14 Reported NEXT DOSE DUE ON 11/05/14 Plavix (Clopidogrel Bisulfate) 75 Mg Tablet 1 Tab PO DAILY 09/25/14 Reported NEXT DOSE DUE ON 11/05/14 Tamsulosin Hcl 0.4 Mg Cap.er.24h 0.4 Mg PO HS 07/11/13 Reported MAY TAKE ANYTIME Prilosec (Omeprazole) 40 Mg Capsule. 40 Mg PO DAILY 07/11/13 Reported MAY TAKE ANY TIME Aspir 81 (Aspirin) 81 Mg Tablet. 81 Mg PO DAILY 07/11/13 Reported NEXT DOSE DUE ON 11/05/14 Impression . 1. Suspected severe chronic obstructive pulmonary disease. He has tobacco use all his life up to 3 packs per day and continues to smoke 1 pack per day. 2. Skin rash and also palpable lymph node on the neck. NOT SIG ON CT NECK/ REACTIVE 3. Underlying obesity. 4. History of coronary artery disease. 5. Syncopal episode. No evidence of any pulmonary embolism by CT angiogram. Plan . 1. PT DYSPNEIC TODAY. SUSPECT ANXIETY. ABG ADEQUATE. IN PAIN FROM SHINGLES. WILL CHECK CXR, PAIN MEDS/ XANAX. BICARB. 2. Smoking cessation counseling provided. The patient does not appear to be interested in quitting tobacco. 3. Continue bronchodilators. 4. PFTs as an outpatient. D/W KAY COLON MD Nov 30, 2017 15:44
[2017-11-30] MEDS ORDERED: SODIUM BICARB ADULT 8.4% 50 MEQ/50 ML DISP.SYRIN. IV ONE (16:00)
[2017-11-30] MEDS: CARVEDILOL 6.25 MG TABLET. PO SCH (16:14)
--- NOTE | 2017-11-30 16:14 | RAD ---
Portable chest, 11/30/2017: HISTORY: COPD, cough, shortness of breath Comparison is made to a study from 11/28/2017. The left-sided transvenous pacing device is unchanged. The heart size is normal. No pulmonary infiltrate is seen. There is no evidence of pleural fluid. IMPRESSION: No acute cardiopulmonary abnormality is detected. Electronically signed by: Héctor Moise MD (11/30/2017 4:11 PM) [facility]
[2017-11-30] MEDS ORDERED: FUROSEMIDE 20 MG/2 ML VIAL. IVP ONE ×2 (16:15→18:45)
--- NOTE | 2017-11-30 16:36 | PDOC ---
Provider Note Provider Note 11/30/2017 1600 [employer] [facility] interrogation report revealed normal functioning device within impedance parameters. No arrhythmias. BP mildly elevated. Mild sinus tach currently 110s, coreg increased. Discussed with staff. JACQUELYN FLORES APRN Nov 30, 2017 16:35
[2017-11-30 19:00] VITALS: BP 113/63
[2017-11-30] MEDS: ATORVASTATIN CALCIUM 20 MG TABLET PO SCH (21:37)
[2017-11-30 23:00] VITALS: BP 118/79
[2017-12-01 03:00] VITALS: BP 96/63
[2017-12-01] MEDS: LIDOCAINE 2% TOPICAL JELLY 5GM TUBE. TP SCH ×5 (05:39→20:17)
[2017-12-01 07:00] VITALS: BP 148/90
[2017-12-01] MEDS: IPRATRPIUM/ALBUTEROL 0.5/2.5MG 3 ML NEBU. NEB SCH ×4 (07:17→21:16)
[2017-12-01 07:30] LABS: BASO % 0 % (0-3); EOS # 0.1 x10^3/uL (0.0-0.7); EOS % 1 % (0-3); HEMATOCRIT 44.4 % (39.0-53.0); HEMOGLOBIN 15.2 g/dL (13.0-17.5); LYMPH # 1.1 x10^3/uL (1.0-4.8); LYMPH % 8 % (24-48); MEAN CORPUSCULAR HEMOGLOBIN 31 pg (25-35); MEAN CORPUSCULAR HGB CONC 34 g/dL (31-37); MEAN CORPUSCULAR VOLUME 89 fL (79-100); MONO # 1.4 x10^3/uL (0.0-1.1); MONO % 10 % (0-9); NEUT # 11.4 x10^3uL (1.8-7.7); NEUT % 81 % (31-73); PLATELET COUNT 161 x10^3/uL (140-400); RED BLOOD COUNT 4.97 x10^6/uL (4.30-5.70); RED CELL DISTRIBUTION WIDTH 13.8 % (11.5-14.5); WHITE BLOOD COUNT 14.1 x10^3/uL (4.0-11.0)
[2017-12-01 07:50] LABS: ALBUMIN 3.1 g/dL (3.4-5.0); ALBUMIN/GLOBULIN RATIO 0.7 (1.0-1.7); CALCIUM 9.2 mg/dL (8.5-10.1); CREATININE 0.8 mg/dL (0.7-1.3); GFR 97.3; POTASSIUM 3.8 mmol/L (3.5-5.1); TOTAL BILIRUBIN 1.2 mg/dL (0.2-1.0); TOTAL PROTEIN 7.4 g/dL (6.4-8.2)
[2017-12-01] MEDS: INSULIN LISPRO 300 UNITS/3 ML INSULN.PEN. SQ SCH ×3 (08:00→16:02)
[2017-12-01] MEDS: [UNRECOGNIZED DRUG - REMARK] SQ SCH ×2 (08:09→23:23)
[2017-12-01] MEDS: valACYclovir 500 MG TABLET. PO SCH ×3 (08:21→20:15)
[2017-12-01] MEDS: ASPIRIN 325 MG TABLET PO SCH (08:21)
[2017-12-01] MEDS: DULoxetine HCL 30 MG CAPSULE.DR PO SCH (08:21)
[2017-12-01] MEDS: ALPRAZolam 0.5 MG TABLET PO PRN ×2 (08:21→20:15)
[2017-12-01] MEDS: TAMSULOSIN 0.4 MG CAP.ER.24H. PO SCH (08:22)
[2017-12-01] MEDS: LISINOPRIL 5 MG TABLET. PO SCH (08:22)
[2017-12-01] MEDS: PANTOPRAZOLE 40 MG TABLET.DR. PO SCH (08:22)
[2017-12-01] MEDS: GABAPENTIN 300 MG CAPSULE. PO SCH ×3 (08:22→20:15)
[2017-12-01] MEDS: CARVEDILOL 6.25 MG TABLET. PO SCH ×2 (08:22→15:57)
[2017-12-01] MEDS: MORPHINE SULFATE 2 MG/ML DISP.SYRIN. IV PRN ×3 (08:23→23:18)
[2017-12-01] MEDS: NYSTATIN TOPICAL POWDER 15GM BOTTLE. TP SCH ×2 (08:25→20:17)
[2017-12-01] MEDS: TRIAMCINOLONE ACETONIDE 0.1% TOPICAL CREAM 15GM TUBE. TP SCH ×2 (08:25→20:17)
--- NOTE | 2017-12-01 10:35 | PDOC ---
PROGRESS NOTES Assessment Problems Medical Problems: (1) COPD (chronic obstructive pulmonary disease) Status: Acute (2) Pre-syncope Status: Acute Shingles Presyncope feelings in a patient with known carotid artery hypersensitivity syndrome as well as diabetic neuropathy, undoubtedly with a component of autonomic neuropathy. No evidence of any primary neurological problem such as stroke, cerebrovascular disease, or seizure. Diabetic neuropathy Cervical spondylosis without radiculopathy on EMG Multiple entrapment neuropathies: bilateral carpal tunnel syndrome, left cubital tunnel syndrome, and right Guyon's canal syndrome Not orthostatic, pacemaker checked out fine COPD Plan Symptomatic treatment of varicella Will follow Subjective Feels much better this morning Objective Vital Signs Date Time Temp Pulse Resp B/P (MAP) Pulse Ox O2 Delivery O2 Flow Rate FiO2 12/01/17 09:09 95 Nasal Cannula 6.0 12/01/17 08:22 111 148/90 12/01/17 07:00 97.9 26 97.9 Intake and Output 12/01/17 07:00 Intake Total 170 ml Output Total 200 ml Balance -30 ml Intake Oral 170 ml Output Urine Total 200 ml PHYSICAL EXAM Alert. Oriented to time, place and person. PERRL. EOMI. CN: no focal findings. Muscle tone: normal. Muscle strength: 4/5 DTR: 0+ Plantar reflex: flexor Gait: not examined in bed. Sensory exam: stocking loss No cerebellar signs elicited. Review of Relevant I have reviewed the following items bud (where applicable) has been applied. Labs Laboratory Tests Test 11/29/17 11:35 11/29/17 16:57 11/29/17 20:11 11/30/17 05:20 Glucose (Fingerstick) 181 mg/dL (70-99) 140 mg/dL (70-99) 183 mg/dL (70-99) O2 Saturation 93 % (92-99) Arterial Blood pH 7.39 (7.35-7.45) Arterial Blood pCO2 at Patient Temp 37 mmHg (35-46) Arterial Blood pO2 at Patient Temp 67 mmHg (65-108) Arterial Blood HCO3 22 mmol/L (21-28) Arterial Blood Base Excess -2 mmol/L (-3-3) FiO2 28 Test 11/30/17 07:34 11/30/17 11:50 11/30/17 16:47 11/30/17 21:04 Glucose (Fingerstick) 173 mg/dL (70-99) 173 mg/dL (70-99) 95 mg/dL (70-99) 90 mg/dL (70-99) Test 12/01/17 06:45 12/01/17 07:50 12/01/17 08:19 White Blood Count 14.1 x10^3/uL (4.0-11.0) Red Blood Count 4.97 x10^6/uL (4.30-5.70) Hemoglobin 15.2 g/dL (13.0-17.5) Hematocrit 44.4 % (39.0-53.0) Mean Corpuscular Volume 89 fL (79-100) Mean Corpuscular Hemoglobin 31 pg (25-35) Mean Corpuscular Hemoglobin Concent 34 g/dL (31-37) Red Cell Distribution Width 13.8 % (11.5-14.5) Platelet Count 161 x10^3/uL (140-400) Neutrophils (%) (Auto) 81 % (31-73) Lymphocytes (%) (Auto) 8 % (24-48) Monocytes (%) (Auto) 10 % (0-9) Eosinophils (%) (Auto) 1 % (0-3) Basophils (%) (Auto) 0 % (0-3) Neutrophils # (Auto) 11.4 x10^3uL (1.8-7.7) Lymphocytes # (Auto) 1.1 x10^3/uL (1.0-4.8) Monocytes # (Auto) 1.4 x10^3/uL (0.0-1.1) Eosinophils # (Auto) 0.1 x10^3/uL (0.0-0.7) Basophils # (Auto) 0.0 x10^3/uL (0.0-0.2) Sodium Level 139 mmol/L (136-145) Potassium Level 3.8 mmol/L (3.5-5.1) Chloride Level 103 mmol/L (98-107) Carbon Dioxide Level 26 mmol/L (21-32) Anion Gap 10 (6-14) Blood Urea Nitrogen 30 mg/dL (8-26) Creatinine 0.8 mg/dL (0.7-1.3) Estimated GFR (Cockcroft-Gault) 97.3 BUN/Creatinine Ratio 38 (6-20) Glucose Level 50 mg/dL (70-99) Calcium Level 9.2 mg/dL (8.5-10.1) Total Bilirubin 1.2 mg/dL (0.2-1.0) Aspartate Amino Transf (AST/SGOT) 30 U/L (15-37) Alanine Aminotransferase (ALT/SGPT) 38 U/L (16-63) Alkaline Phosphatase 127 U/L (46-116) Total Protein 7.4 g/dL (6.4-8.2) Albumin 3.1 g/dL (3.4-5.0) Albumin/Globulin Ratio 0.7 (1.0-1.7) Glucose (Fingerstick) 52 mg/dL (70-99) 77 mg/dL (70-99) Laboratory Tests Test 11/30/17 11:50 11/30/17 16:47 11/30/17 21:04 12/01/17 06:45 Glucose (Fingerstick) 173 mg/dL (70-99) 95 mg/dL (70-99) 90 mg/dL (70-99) White Blood Count 14.1 x10^3/uL (4.0-11.0) Red Blood Count 4.97 x10^6/uL (4.30-5.70) Hemoglobin 15.2 g/dL (13.0-17.5) Hematocrit 44.4 % (39.0-53.0) Mean Corpuscular Volume 89 fL (79-100) Mean Corpuscular Hemoglobin 31 pg (25-35) Mean Corpuscular Hemoglobin Concent 34 g/dL (31-37) Red Cell Distribution Width 13.8 % (11.5-14.5) Platelet Count 161 x10^3/uL (140-400) Neutrophils (%) (Auto) 81 % (31-73) Lymphocytes (%) (Auto) 8 % (24-48) Monocytes (%) (Auto) 10 % (0-9) Eosinophils (%) (Auto) 1 % (0-3) Basophils (%) (Auto) 0 % (0-3) Neutrophils # (Auto) 11.4 x10^3uL (1.8-7.7) Lymphocytes # (Auto) 1.1 x10^3/uL (1.0-4.8) Monocytes # (Auto) 1.4 x10^3/uL (0.0-1.1) Eosinophils # (Auto) 0.1 x10^3/uL (0.0-0.7) Basophils # (Auto) 0.0 x10^3/uL (0.0-0.2) Sodium Level 139 mmol/L (136-145) Potassium Level 3.8 mmol/L (3.5-5.1) Chloride Level 103 mmol/L (98-107) Carbon Dioxide Level 26 mmol/L (21-32) Anion Gap 10 (6-14) Blood Urea Nitrogen 30 mg/dL (8-26) Creatinine 0.8 mg/dL (0.7-1.3) Estimated GFR (Cockcroft-Gault) 97.3 BUN/Creatinine Ratio 38 (6-20) Glucose Level 50 mg/dL (70-99) Calcium Level 9.2 mg/dL (8.5-10.1) Total Bilirubin 1.2 mg/dL (0.2-1.0) Aspartate Amino Transf (AST/SGOT) 30 U/L (15-37) Alanine Aminotransferase (ALT/SGPT) 38 U/L (16-63) Alkaline Phosphatase 127 U/L (46-116) Total Protein 7.4 g/dL (6.4-8.2) Albumin 3.1 g/dL (3.4-5.0) Albumin/Globulin Ratio 0.7 (1.0-1.7) Test 12/01/17 07:50 12/01/17 08:19 Glucose (Fingerstick) 52 mg/dL (70-99) 77 mg/dL (70-99) Microbiology 11/28/17 Blood Culture - Preliminary, Resulted NO GROWTH AFTER 3 DAYS Medications Current Medications Albuterol/ Ipratropium (Duoneb) 3 ml 1X ONCE NEB Last administered on at 10:01; Start 11/28/17 at 10:00; Stop 11/28/17 at 10:01; Status DC Lidocaine HCl (Lidocaine Pf 2% Vial) 5 ml 1X ONCE IJ ; Start 11/28/17 at 11:30; Stop 11/28/17 at 11:39; Status DC Sodium Chloride 1,000 ml @ 1,000 mls/hr 1X ONCE IV Last administered on at 11:51; Start 11/28/17 at 11:30; Stop 11/28/17 at 12:29; Status DC Iohexol (Omnipaque 300 Mg/ml) 75 ml 1X ONCE IV Last administered on 11/28/17at 12:00; Start 11/28/17 at 11:45; Stop 11/28/17 at 11:46; Status DC Info (CONTRAST GIVEN -- Rx MONITORING) 1 each PRN DAILY PRN MC SEE COMMENTS; Start 11/28/17 at 11:45; Stop 11/30/17 at 11:44; Status DC Albuterol/ Ipratropium (Duoneb) 3 ml 1X ONCE NEB Last administered on at 13:48; Start 11/28/17 at 13:00; Stop 11/28/17 at 13:01; Status DC Ondansetron HCl (Zofran) 4 mg PRN Q8HRS PRN IV NAUSEA/VOMITING; Start 11/28/17 at 13:00; Stop 11/28/17 at 13:52; Status DC Morphine Sulfate (Morphine Sulfate) 2 mg PRN Q2HR PRN IV PAIN; Start 11/28/17 at 13:00; Stop 11/28/17 at 13:51; Status DC Acetaminophen (Tylenol) 650 mg PRN Q4HRS PRN PO FEVER; Start 11/28/17 at 13:00; Stop 11/28/17 at 13:51; Status DC Ceftriaxone Sodium 50 ml @ 100 mls/hr 1X ONCE IV Last administered on at 13:56; Start 11/28/17 at 14:00; Stop 11/28/17 at 14:29; Status DC Azithromycin 500 mg/Sodium Chloride 250 ml @ 250 mls/hr 1X ONCE IV Last administered on 11/28/17at 15:58; Start 11/28/17 at 14:30; Stop 11/28/17 at 15:29; Status DC Sodium Chloride 1,000 ml @ 1,000 mls/hr 1X ONCE IV Last administered on at 13:39; Start 11/28/17 at 13:45; Stop 11/28/17 at 14:44; Status DC Sodium Chloride 1,000 ml @ 1,000 mls/hr 1X ONCE IV Last administered on at 16:15; Start 11/28/17 at 13:45; Stop 11/28/17 at 14:44; Status DC Acetaminophen (Tylenol) 650 mg PRN Q6HRS PRN PO FEVER; Start 11/28/17 at 13:45 Ondansetron HCl (Zofran) 4 mg PRN Q6HRS PRN IV NAUSEA/VOMITING; Start 11/28/17 at 13:45 Morphine Sulfate (Morphine Sulfate) 2 mg PRN Q2HR PRN IV MODERATE TO SEVERE PAIN Last administered on 11/30/17at 04:43; Start 11/28/17 at 13:45; Stop 11/30/17 at 12:59; Status DC Tramadol HCl (Ultram) 50 mg PRN Q6HRS PRN PO MILD TO MODERATE PAIN Last administered on 11/29/17at 13:22; Start 11/28/17 at 13:45 Hydralazine HCl (Apresoline Inj) 10 mg PRN Q4HRS PRN IVP ELEVATED BP, SEE COMMENTS; Start 11/28/17 at 13:45 Docusate Sodium (Colace) 100 mg PRN DAILY PRN PO CONSTIPATION; Start 11/28/17 at 13:45 Albuterol/ Ipratropium (Duoneb) 3 ml RTQID NEB Last administered on 12/01/17at 07:17; Start 11/28/17 at 16:00 Albuterol Sulfate (Ventolin Neb Soln) 2.5 mg PRN Q2HR PRN NEB SHORTNESS OF BREATH Last administered on 11/30/17at 04:45; Start 11/28/17 at 13:45 Guaifenesin (Mucinex) 600 mg BID PO Last administered on 12/01/17at 08:21; Start 11/28/17 at 14:30 Triamcinolone Acetonide (Kenalog) 1 karsten BID TP Last administered on 12/01/17at 08:25; Start 11/28/17 at 21:00 Nystatin (Nystop) 1 karsten BID TP Last administered on 12/01/17at 08:25; Start 11/28 at 21:00 Diphenhydramine HCl (Benadryl) 25 mg PRN Q6HRS PRN PO ITCHING Last administered on 11/29/17at 23:11; Start 11/28/17 at 13:45 Insulin Human Lispro (HumaLOG) 0-9 UNITS TIDWMEALS SQ Last administered on 12:21; Start 11/28/17 at 17:00 Dextrose (Dextrose 50%-Water Syringe) 12.5 gm PRN Q15MIN PRN IV SEE COMMENTS; Start 11/28/17 at 13:45 Oxycodone/ Acetaminophen (Percocet 5/325) 1 tab PRN Q6HRS PRN PO SEVERE PAIN Last administered on 11/30/17 08:08; Start 11/28/17 at 17:00 Tamsulosin HCl (Flomax) 0.4 mg DAILY PO Last administered on 12/01/17 08:22; Start 11/28/17 at 18:00 Aspirin (Jorge Luis Aspirin) 325 mg DAILY PO Last administered on 12/01/17 08:21; Start 11/28/17 at 18:00 Duloxetine HCl (Cymbalta) 60 mg DAILY PO Last administered on 12/01/17 08:21; Start 11/28/17 at 18:00 Gabapentin (Neurontin) 300 mg TID PO Last administered on 12/01/17 08:22; Start 11/28/17 at 21:00 Pantoprazole Sodium (Protonix) 40 mg DAILYAC PO Last administered on 12/01/17 08:22; Start 11/28/17 at 18:00 Valacyclovir HCl (Valtrex) 1,000 mg TID PO Last administered on 12/01/17 08:21 ; Start 11/28/17 at 21:00 Insulin Human Lispro (HumaLOG) 6 units 1X ONCE SQ Last administered on at 20:52; Start 11/28/17 at 20:45; Stop 11/28/17 at 20:46; Status DC Non-Formulary Medication 1 ea BID SQ Last administered on 11/30/17 08:16; Start 11/28/17 at 23:00 Pneumococcal Polyvalent Vaccine (Do NOT chart on this placeholder) 1 each 1X ONCE MC ; Start 11/29/17 at 00:00; Stop 11/29/17 at 00:01; Status UNV Pneumococcal Polyvalent Vaccine (Pneumovax 23) 0.5 ml ONCE ONCE VAX IM Last administered on 11/29/17at 18:20; Start 11/29/17 at 10:30; Stop 11/29/17 at 10:31; Status DC Lidocaine HCl (Xylocaine 2% Topical 5gm Tube) 1 karsten PRN Q6HRS PRN TP pain Last administered on 11/29/17 20:22; Start 11/29/17 at 13:30; Stop 11/30/17 at 12:59; Status DC Fenofibrate (Lofibra) 54 mg DAILY PO ; Start 11/29/17 at 14:00; Stop 11/29/17 at 14:00; Status DC Atorvastatin Calcium (Lipitor) 20 mg HS PO Last administered on 11/30/17 21:37 ; Start 11/29/17 at 21:00 Carvedilol (Coreg) 3.125 mg BIDWMEALS PO Last administered on 11/30/17 08:08; Start 11/29/17 at 17:00; Stop 11/30/17 at 11:19; Status DC Lisinopril (Prinivil) 2.5 mg DAILY PO Last administered on 12/01/17 08:22; Start 11/29/17 at 14:00 Alprazolam (Xanax) 0.5 mg PRN Q8HRS PRN PO ANXIETY / AGITATION Last administered on 12/01/17 08:21; Start 11/30/17 at 00:15 Throat Lozenges (Cepacol Sore Throat Lozenge) 1 stuart PRN Q2HRS PRN PO SORE THROAT Last administered on 11/30/17 16:14; Start 11/30/17 at 00:15 Alprazolam (Xanax) 0.5 mg 1X ONCE PO Last administered on 11/30/17 05:14; Start 11/30/17 at 05:15; Stop 11/30/17 at 05:17; Status DC Carvedilol (Coreg) 6.25 mg BIDWMEALS PO Last administered on 12/01/17 08:22; Start 11/30/17 at 17:00 Carvedilol (Coreg) 3.125 mg 1X ONCE PO Last administered on 11/30/17 12:19; Start 11/30/17 at 11:30; Stop 11/30/17 at 11:31; Status DC Lidocaine HCl (Xylocaine 2% Topical 5gm Tube) 1 karsten Q4HRS W/A TP Last administered on 12/01/17at 08:25; Start 11/30/17 at 14:00 Morphine Sulfate (Morphine Sulfate) 4 mg PRN Q2HR PRN IV MODERATE TO SEVERE PAIN Last administered on 12/01/17at 08:23; Start 11/30/17 at 13:00 Sodium Bicarbonate (Sodium Bicarb Adult 8.4% Syr) 50 meq 1X ONCE IV Last administered on 11/30/17at 16:18; Start 11/30/17 at 16:00; Stop 11/30/17 at 16:04; Status DC Furosemide (Lasix) 20 mg 1X ONCE IVP Last administered on 11/30/17at 16:44; Start 11/30/17 at 16:15; Stop 11/30/17 at 16:16; Status DC Furosemide (Lasix) 20 mg 1X ONCE IVP Last administered on 11/30/17at 18:38; Start 11/30/17 at 18:45; Stop 11/30/17 at 18:46; Status DC Active Scripts Active Eliquis (Apixaban) 5 Mg Tablet 5 Mg PO BID Reported Tresiba Flextouch U-200 (Insulin Degludec) 200 Unit/1 Ml Insuln.pen 75 Unit SQ BID Oxycodone Hcl 10 Mg Tablet 10 Tamsulosin Hcl 0.4 Mg Cap.er.24h 1 Cap PO DAILY Gabapentin 300 Mg Capsule 300 Mg PO TID Aspirin 325 Mg Tablet 1 Tab PO DAILY Prilosec Otc (Omeprazole Magnesium) 20 Mg Tablet.dr 1 Tab PO DAILY Cymbalta (Duloxetine Hcl) 60 Mg Capsule.dr 1 Cap PO DAILY Hydroxychloroquine Sulfate 200 Mg Tablet 1 Tab PO BID Finasteride 5 Mg Tablet 1 Tab PO DAILY Zoloft (Sertraline Hcl) 50 Mg Tablet 1 Tab PO DAILY Omeprazole 40 Mg Capsule.dr 1 Cap PO DAILY Metformin Hcl Er (Metformin Hcl) 1,000 Mg Tab.er.24 1,000 Mg PO DAILYWBKFT Cephalexin 500 Mg Capsule 2 Cap PO BID 10 Days Hydrocodone-Apap 7.5-325 (Hydrocodone Bit/Acetaminophen) 1 Each Tablet 1 Tab PO PRN Q6HRS PRN NITROGLYCERIN SubLingual (Nitroglycerin) 0.4 Mg Tab.subl 0.4 Mg SL PRN Q5MIN PRN Levemir (Insulin Detemir) 100 Unit/1 Ml Vial 50 Unit SQ BID Breo Ellipta 200-25 Mcg INH (Fluticasone/Vilanterol) 1 Each Blst.w.dev 2 Puff IH DAILY PRN Atorvastatin Calcium 20 Mg Tablet 20 Mg PO HS Gabapentin 300 Mg Capsule 300 Mg PO TID NEXT DOSE DUE AT 2 PM AND AT BEDTIME Carvedilol 3.125 Mg Tablet 1 Tab PO BID NEXT DOSE DUE WITH SUPPER TODAY Lisinopril 2.5 Mg Tablet 1 Tab PO DAILY NEXT DOSE DUE ON 11/05/14 Plavix (Clopidogrel Bisulfate) 75 Mg Tablet 1 Tab PO DAILY NEXT DOSE DUE ON 11/05/14 Tamsulosin Hcl 0.4 Mg Cap.er.24h 0.4 Mg PO HS MAY TAKE ANYTIME Prilosec (Omeprazole) 40 Mg Capsule.dr 40 Mg PO DAILY MAY TAKE ANY TIME Aspir 81 (Aspirin) 81 Mg Tablet.dr 81 Mg PO DAILY NEXT DOSE DUE ON 11/05/14 Vitals/I & O Vital Sign - Last 24 Hours 11/30/17 11/30/17 11/30/17 11/30/17 11:00 12:09 12:19 13:24 Temp 97.8 97.8 Pulse 109 109 Resp 24 B/P (MAP) 104/76 (85) 104/76 Pulse Ox 92 91 O2 Delivery Nasal Cannula Nasal Cannula Nasal Cannula O2 Flow Rate 2.0 2.0 2.0 11/30/17 11/30/17 11/30/17 11/30/17 15:00 16:09 16:14 16:15 Temp 99.5 99.5 Pulse 109 109 Resp 40 B/P (MAP) 114/66 (82) 114/66 Pulse Ox 95 93 O2 Delivery Nasal Cannula Nasal Cannula Nasal Cannula O2 Flow Rate 2.0 2.0 2.0 11/30/17 11/30/17 11/30/17 11/30/17 18:39 19:00 19:42 20:00 Temp 98.6 98.6 Pulse 111 Resp 40 B/P (MAP) 113/63 (80) Pulse Ox 94 92 O2 Delivery Nasal Cannula Nasal Cannula Nasal Cannula Room Air O2 Flow Rate 6.0 2.0 6.0 11/30/17 11/30/17 12/01/17 12/01/17 21:37 23:00 03:00 07:00 Temp 98.6 97.5 97.9 98.6 97.5 97.9 Pulse 113 94 111 Resp 24 24 26 B/P (MAP) 118/79 (92) 96/63 (74) 148/90 (109) Pulse Ox 94 93 O2 Delivery Nasal Cannula Nasal Cannula Nasal Cannula O2 Flow Rate 6.0 2.0 2.0 12/01/17 12/01/17 12/01/17 12/01/17 07:15 07:17 08:22 08:22 Pulse 111 111 B/P (MAP) 148/90 148/90 Pulse Ox 95 O2 Delivery Room Air Nasal Cannula O2 Flow Rate 6.0 12/01/17 12/01/17 08:23 09:09 Pulse Ox 95 O2 Delivery Nasal Cannula Nasal Cannula O2 Flow Rate 6.0 6.0 Intake and Output 11/30/17 11/30/17 12/01/17 15:00 23:00 07:00 Intake Total 120 ml 50 ml Output Total 200 ml Balance 120 ml -150 ml DENIA PAGAN MD Dec 01, 2017 10:35
[2017-12-01 11:00] VITALS: BP 140/90
--- NOTE | 2017-12-01 13:05 | PDOC ---
PROGRESS NOTES Chief Complaint Chief Complaint dizzy/ lightheaded, presyncope, acute pain, skin rash, shingles, VZV PPM H/O CAD WITH stents dm2 on insulin COPD, w acute bronchitis, tobaccoism HTN HLD GERD depression BPH marijuana use h/o stroke with mild rt side weakness groin aron dermatitis History of Present Illness History of Present Illness IV antiviral topical pain treatment CV following tele, check orthostatic BP nystatin powder for groin area Vitals Vitals Vital Signs Date Time Temp Pulse Resp B/P (MAP) Pulse Ox O2 Delivery O2 Flow Rate FiO2 12/01/17 11:03 Nasal Cannula 6.0 12/01/17 11:00 97.2 109 26 140/90 (107) 96 97.2 Physical Exam General: Alert, Oriented X3, Cooperative, No acute distress Heart: Normal S1, Normal S2, No murmurs Lungs: Clear Abdomen: Normal bowel sounds, Soft Extremities: No edema Skin: Other Labs LABS Laboratory Tests Test 11/30/17 16:47 11/30/17 21:04 12/01/17 06:45 12/01/17 07:50 Glucose (Fingerstick) 95 mg/dL (70-99) 90 mg/dL (70-99) 52 mg/dL (70-99) White Blood Count 14.1 x10^3/uL (4.0-11.0) Red Blood Count 4.97 x10^6/uL (4.30-5.70) Hemoglobin 15.2 g/dL (13.0-17.5) Hematocrit 44.4 % (39.0-53.0) Mean Corpuscular Volume 89 fL (79-100) Mean Corpuscular Hemoglobin 31 pg (25-35) Mean Corpuscular Hemoglobin Concent 34 g/dL (31-37) Red Cell Distribution Width 13.8 % (11.5-14.5) Platelet Count 161 x10^3/uL (140-400) Neutrophils (%) (Auto) 81 % (31-73) Lymphocytes (%) (Auto) 8 % (24-48) Monocytes (%) (Auto) 10 % (0-9) Eosinophils (%) (Auto) 1 % (0-3) Basophils (%) (Auto) 0 % (0-3) Neutrophils # (Auto) 11.4 x10^3uL (1.8-7.7) Lymphocytes # (Auto) 1.1 x10^3/uL (1.0-4.8) Monocytes # (Auto) 1.4 x10^3/uL (0.0-1.1) Eosinophils # (Auto) 0.1 x10^3/uL (0.0-0.7) Basophils # (Auto) 0.0 x10^3/uL (0.0-0.2) Sodium Level 139 mmol/L (136-145) Potassium Level 3.8 mmol/L (3.5-5.1) Chloride Level 103 mmol/L (98-107) Carbon Dioxide Level 26 mmol/L (21-32) Anion Gap 10 (6-14) Blood Urea Nitrogen 30 mg/dL (8-26) Creatinine 0.8 mg/dL (0.7-1.3) Estimated GFR (Cockcroft-Gault) 97.3 BUN/Creatinine Ratio 38 (6-20) Glucose Level 50 mg/dL (70-99) Calcium Level 9.2 mg/dL (8.5-10.1) Total Bilirubin 1.2 mg/dL (0.2-1.0) Aspartate Amino Transf (AST/SGOT) 30 U/L (15-37) Alanine Aminotransferase (ALT/SGPT) 38 U/L (16-63) Alkaline Phosphatase 127 U/L (46-116) Total Protein 7.4 g/dL (6.4-8.2) Albumin 3.1 g/dL (3.4-5.0) Albumin/Globulin Ratio 0.7 (1.0-1.7) Test 12/01/17 08:19 12/01/17 11:55 Glucose (Fingerstick) 77 mg/dL (70-99) 164 mg/dL (70-99) Assessment and Plan Assessmemt and Plan Problems Medical Problems: (1) COPD (chronic obstructive pulmonary disease) Status: Acute (2) Pre-syncope Status: Acute Comment Review of Relevant I have reviewed the following items bud (where applicable) has been applied. Labs Laboratory Tests Test 11/29/17 16:57 11/29/17 20:11 11/30/17 05:20 11/30/17 07:34 Glucose (Fingerstick) 140 mg/dL (70-99) 183 mg/dL (70-99) 173 mg/dL (70-99) O2 Saturation 93 % (92-99) Arterial Blood pH 7.39 (7.35-7.45) Arterial Blood pCO2 at Patient Temp 37 mmHg (35-46) Arterial Blood pO2 at Patient Temp 67 mmHg (65-108) Arterial Blood HCO3 22 mmol/L (21-28) Arterial Blood Base Excess -2 mmol/L (-3-3) FiO2 28 Test 11/30/17 11:50 11/30/17 16:47 11/30/17 21:04 12/01/17 06:45 Glucose (Fingerstick) 173 mg/dL (70-99) 95 mg/dL (70-99) 90 mg/dL (70-99) White Blood Count 14.1 x10^3/uL (4.0-11.0) Red Blood Count 4.97 x10^6/uL (4.30-5.70) Hemoglobin 15.2 g/dL (13.0-17.5) Hematocrit 44.4 % (39.0-53.0) Mean Corpuscular Volume 89 fL (79-100) Mean Corpuscular Hemoglobin 31 pg (25-35) Mean Corpuscular Hemoglobin Concent 34 g/dL (31-37) Red Cell Distribution Width 13.8 % (11.5-14.5) Platelet Count 161 x10^3/uL (140-400) Neutrophils (%) (Auto) 81 % (31-73) Lymphocytes (%) (Auto) 8 % (24-48) Monocytes (%) (Auto) 10 % (0-9) Eosinophils (%) (Auto) 1 % (0-3) Basophils (%) (Auto) 0 % (0-3) Neutrophils # (Auto) 11.4 x10^3uL (1.8-7.7) Lymphocytes # (Auto) 1.1 x10^3/uL (1.0-4.8) Monocytes # (Auto) 1.4 x10^3/uL (0.0-1.1) Eosinophils # (Auto) 0.1 x10^3/uL (0.0-0.7) Basophils # (Auto) 0.0 x10^3/uL (0.0-0.2) Sodium Level 139 mmol/L (136-145) Potassium Level 3.8 mmol/L (3.5-5.1) Chloride Level 103 mmol/L (98-107) Carbon Dioxide Level 26 mmol/L (21-32) Anion Gap 10 (6-14) Blood Urea Nitrogen 30 mg/dL (8-26) Creatinine 0.8 mg/dL (0.7-1.3) Estimated GFR (Cockcroft-Gault) 97.3 BUN/Creatinine Ratio 38 (6-20) Glucose Level 50 mg/dL (70-99) Calcium Level 9.2 mg/dL (8.5-10.1) Total Bilirubin 1.2 mg/dL (0.2-1.0) Aspartate Amino Transf (AST/SGOT) 30 U/L (15-37) Alanine Aminotransferase (ALT/SGPT) 38 U/L (16-63) Alkaline Phosphatase 127 U/L (46-116) Total Protein 7.4 g/dL (6.4-8.2) Albumin 3.1 g/dL (3.4-5.0) Albumin/Globulin Ratio 0.7 (1.0-1.7) Test 12/01/17 07:50 12/01/17 08:19 12/01/17 11:55 Glucose (Fingerstick) 52 mg/dL (70-99) 77 mg/dL (70-99) 164 mg/dL (70-99) Laboratory Tests Test 11/30/17 16:47 11/30/17 21:04 12/01/17 06:45 12/01/17 07:50 Glucose (Fingerstick) 95 mg/dL (70-99) 90 mg/dL (70-99) 52 mg/dL (70-99) White Blood Count 14.1 x10^3/uL (4.0-11.0) Red Blood Count 4.97 x10^6/uL (4.30-5.70) Hemoglobin 15.2 g/dL (13.0-17.5) Hematocrit 44.4 % (39.0-53.0) Mean Corpuscular Volume 89 fL (79-100) Mean Corpuscular Hemoglobin 31 pg (25-35) Mean Corpuscular Hemoglobin Concent 34 g/dL (31-37) Red Cell Distribution Width 13.8 % (11.5-14.5) Platelet Count 161 x10^3/uL (140-400) Neutrophils (%) (Auto) 81 % (31-73) Lymphocytes (%) (Auto) 8 % (24-48) Monocytes (%) (Auto) 10 % (0-9) Eosinophils (%) (Auto) 1 % (0-3) Basophils (%) (Auto) 0 % (0-3) Neutrophils # (Auto) 11.4 x10^3uL (1.8-7.7) Lymphocytes # (Auto) 1.1 x10^3/uL (1.0-4.8) Monocytes # (Auto) 1.4 x10^3/uL (0.0-1.1) Eosinophils # (Auto) 0.1 x10^3/uL (0.0-0.7) Basophils # (Auto) 0.0 x10^3/uL (0.0-0.2) Sodium Level 139 mmol/L (136-145) Potassium Level 3.8 mmol/L (3.5-5.1) Chloride Level 103 mmol/L (98-107) Carbon Dioxide Level 26 mmol/L (21-32) Anion Gap 10 (6-14) Blood Urea Nitrogen 30 mg/dL (8-26) Creatinine 0.8 mg/dL (0.7-1.3) Estimated GFR (Cockcroft-Gault) 97.3 BUN/Creatinine Ratio 38 (6-20) Glucose Level 50 mg/dL (70-99) Calcium Level 9.2 mg/dL (8.5-10.1) Total Bilirubin 1.2 mg/dL (0.2-1.0) Aspartate Amino Transf (AST/SGOT) 30 U/L (15-37) Alanine Aminotransferase (ALT/SGPT) 38 U/L (16-63) Alkaline Phosphatase 127 U/L (46-116) Total Protein 7.4 g/dL (6.4-8.2) Albumin 3.1 g/dL (3.4-5.0) Albumin/Globulin Ratio 0.7 (1.0-1.7) Test 12/01/17 08:19 12/01/17 11:55 Glucose (Fingerstick) 77 mg/dL (70-99) 164 mg/dL (70-99) Microbiology 11/28/17 Blood Culture - Preliminary, Resulted NO GROWTH AFTER 3 DAYS Medications Current Medications Albuterol/ Ipratropium (Duoneb) 3 ml 1X ONCE NEB Last administered on at 10:01; Start 11/28/17 at 10:00; Stop 11/28/17 at 10:01; Status DC Lidocaine HCl (Lidocaine Pf 2% Vial) 5 ml 1X ONCE IJ ; Start 11/28/17 at 11:30; Stop 11/28/17 at 11:39; Status DC Sodium Chloride 1,000 ml @ 1,000 mls/hr 1X ONCE IV Last administered on at 11:51; Start 11/28/17 at 11:30; Stop 11/28/17 at 12:29; Status DC Iohexol (Omnipaque 300 Mg/ml) 75 ml 1X ONCE IV Last administered on 11/28/17at 12:00; Start 11/28/17 at 11:45; Stop 11/28/17 at 11:46; Status DC Info (CONTRAST GIVEN -- Rx MONITORING) 1 each PRN DAILY PRN MC SEE COMMENTS; Start 11/28/17 at 11:45; Stop 11/30/17 at 11:44; Status DC Albuterol/ Ipratropium (Duoneb) 3 ml 1X ONCE NEB Last administered on at 13:48; Start 11/28/17 at 13:00; Stop 11/28/17 at 13:01; Status DC Ondansetron HCl (Zofran) 4 mg PRN Q8HRS PRN IV NAUSEA/VOMITING; Start 11/28/17 at 13:00; Stop 11/28/17 at 13:52; Status DC Morphine Sulfate (Morphine Sulfate) 2 mg PRN Q2HR PRN IV PAIN; Start 11/28/17 at 13:00; Stop 11/28/17 at 13:51; Status DC Acetaminophen (Tylenol) 650 mg PRN Q4HRS PRN PO FEVER; Start 11/28/17 at 13:00; Stop 11/28/17 at 13:51; Status DC Ceftriaxone Sodium 50 ml @ 100 mls/hr 1X ONCE IV Last administered on at 13:56; Start 11/28/17 at 14:00; Stop 11/28/17 at 14:29; Status DC Azithromycin 500 mg/Sodium Chloride 250 ml @ 250 mls/hr 1X ONCE IV Last administered on 11/28/17at 15:58; Start 11/28/17 at 14:30; Stop 11/28/17 at 15:29; Status DC Sodium Chloride 1,000 ml @ 1,000 mls/hr 1X ONCE IV Last administered on at 13:39; Start 11/28/17 at 13:45; Stop 11/28/17 at 14:44; Status DC Sodium Chloride 1,000 ml @ 1,000 mls/hr 1X ONCE IV Last administered on at 16:15; Start 11/28/17 at 13:45; Stop 11/28/17 at 14:44; Status DC Acetaminophen (Tylenol) 650 mg PRN Q6HRS PRN PO FEVER; Start 11/28/17 at 13:45 Ondansetron HCl (Zofran) 4 mg PRN Q6HRS PRN IV NAUSEA/VOMITING; Start 11/28/17 at 13:45 Morphine Sulfate (Morphine Sulfate) 2 mg PRN Q2HR PRN IV MODERATE TO SEVERE PAIN Last administered on 11/30/17at 04:43; Start 11/28/17 at 13:45; Stop 11/30/17 at 12:59; Status DC Tramadol HCl (Ultram) 50 mg PRN Q6HRS PRN PO MILD TO MODERATE PAIN Last administered on 11/29/17at 13:22; Start 11/28/17 at 13:45 Hydralazine HCl (Apresoline Inj) 10 mg PRN Q4HRS PRN IVP ELEVATED BP, SEE COMMENTS; Start 11/28/17 at 13:45 Docusate Sodium (Colace) 100 mg PRN DAILY PRN PO CONSTIPATION; Start 11/28/17 at 13:45 Albuterol/ Ipratropium (Duoneb) 3 ml RTQID NEB Last administered on 12/01/17at 11:03; Start 11/28/17 at 16:00 Albuterol Sulfate (Ventolin Neb Soln) 2.5 mg PRN Q2HR PRN NEB SHORTNESS OF BREATH Last administered on 11/30/17at 04:45; Start 11/28/17 at 13:45 Guaifenesin (Mucinex) 600 mg BID PO Last administered on 12/01/17at 08:21; Start 11/28/17 at 14:30 Triamcinolone Acetonide (Kenalog) 1 karsten BID TP Last administered on 12/01/17 08:25; Start 11/28/17 at 21:00 Nystatin (Nystop) 1 karsten BID TP Last administered on 12/01/17 08:25; Start 11/28 at 21:00 Diphenhydramine HCl (Benadryl) 25 mg PRN Q6HRS PRN PO ITCHING Last administered on 11/29/17 23:11; Start 11/28/17 at 13:45 Insulin Human Lispro (HumaLOG) 0-9 UNITS TIDWMEALS SQ Last administered on 12/01 12:19; Start 11/28/17 at 17:00 Dextrose (Dextrose 50%-Water Syringe) 12.5 gm PRN Q15MIN PRN IV SEE COMMENTS; Start 11/28/17 at 13:45 Oxycodone/ Acetaminophen (Percocet 5/325) 1 tab PRN Q6HRS PRN PO SEVERE PAIN Last administered on 11/30/17 08:08; Start 11/28/17 at 17:00 Tamsulosin HCl (Flomax) 0.4 mg DAILY PO Last administered on 12/01/17 08:22; Start 11/28/17 at 18:00 Aspirin (Jorge Luis Aspirin) 325 mg DAILY PO Last administered on 12/01/17 08:21; Start 11/28/17 at 18:00 Duloxetine HCl (Cymbalta) 60 mg DAILY PO Last administered on 12/01/17 08:21; Start 11/28/17 at 18:00 Gabapentin (Neurontin) 300 mg TID PO Last administered on 12/01/17 12:15; Start 11/28/17 at 21:00 Pantoprazole Sodium (Protonix) 40 mg DAILYAC PO Last administered on 12/01/17 08:22; Start 11/28/17 at 18:00 Valacyclovir HCl (Valtrex) 1,000 mg TID PO Last administered on 12/01/17 12:15 ; Start 11/28/17 at 21:00 Insulin Human Lispro (HumaLOG) 6 units 1X ONCE SQ Last administered on at 20:52; Start 11/28/17 at 20:45; Stop 11/28/17 at 20:46; Status DC Non-Formulary Medication 1 ea BID SQ Last administered on 11/30/17 08:16; Start 11/28/17 at 23:00 Pneumococcal Polyvalent Vaccine (Do NOT chart on this placeholder) 1 each 1X ONCE MC ; Start 11/29/17 at 00:00; Stop 11/29/17 at 00:01; Status UNV Pneumococcal Polyvalent Vaccine (Pneumovax 23) 0.5 ml ONCE ONCE VAX IM Last administered on 11/29/17at 18:20; Start 11/29/17 at 10:30; Stop 11/29/17 at 10:31; Status DC Lidocaine HCl (Xylocaine 2% Topical 5gm Tube) 1 karsten PRN Q6HRS PRN TP pain Last administered on 11/29/17at 20:22; Start 11/29/17 at 13:30; Stop 11/30/17 at 12:59; Status DC Fenofibrate (Lofibra) 54 mg DAILY PO ; Start 11/29/17 at 14:00; Stop 11/29/17 at 14:00; Status DC Atorvastatin Calcium (Lipitor) 20 mg HS PO Last administered on 11/30/17at 21:37 ; Start 11/29/17 at 21:00 Carvedilol (Coreg) 3.125 mg BIDWMEALS PO Last administered on 11/30/17 08:08; Start 11/29/17 at 17:00; Stop 11/30/17 at 11:19; Status DC Lisinopril (Prinivil) 2.5 mg DAILY PO Last administered on 12/01/17at 08:22; Start 11/29/17 at 14:00 Alprazolam (Xanax) 0.5 mg PRN Q8HRS PRN PO ANXIETY / AGITATION Last administered on 12/01/17 08:21; Start 11/30/17 at 00:15 Throat Lozenges (Cepacol Sore Throat Lozenge) 1 stuart PRN Q2HRS PRN PO SORE THROAT Last administered on 11/30/17at 16:14; Start 11/30/17 at 00:15 Alprazolam (Xanax) 0.5 mg 1X ONCE PO Last administered on 11/30/17at 05:14; Start 11/30/17 at 05:15; Stop 11/30/17 at 05:17; Status DC Carvedilol (Coreg) 6.25 mg BIDWMEALS PO Last administered on 12/01/17at 08:22; Start 11/30/17 at 17:00 Carvedilol (Coreg) 3.125 mg 1X ONCE PO Last administered on 11/30/17at 12:19; Start 11/30/17 at 11:30; Stop 11/30/17 at 11:31; Status DC Lidocaine HCl (Xylocaine 2% Topical 5gm Tube) 1 karsten Q4HRS W/A TP Last administered on 12/01/17at 12:16; Start 11/30/17 at 14:00 Morphine Sulfate (Morphine Sulfate) 4 mg PRN Q2HR PRN IV MODERATE TO SEVERE PAIN Last administered on 12/01/17at 08:23; Start 11/30/17 at 13:00 Sodium Bicarbonate (Sodium Bicarb Adult 8.4% Syr) 50 meq 1X ONCE IV Last administered on 11/30/17at 16:18; Start 11/30/17 at 16:00; Stop 11/30/17 at 16:04; Status DC Furosemide (Lasix) 20 mg 1X ONCE IVP Last administered on 11/30/17at 16:44; Start 11/30/17 at 16:15; Stop 11/30/17 at 16:16; Status DC Furosemide (Lasix) 20 mg 1X ONCE IVP Last administered on 11/30/17at 18:38; Start 11/30/17 at 18:45; Stop 11/30/17 at 18:46; Status DC Active Scripts Active Eliquis (Apixaban) 5 Mg Tablet 5 Mg PO BID Reported Tresiba Flextouch U-200 (Insulin Degludec) 200 Unit/1 Ml Insuln.pen 75 Unit SQ BID Oxycodone Hcl 10 Mg Tablet 10 Tamsulosin Hcl 0.4 Mg Cap.er.24h 1 Cap PO DAILY Gabapentin 300 Mg Capsule 300 Mg PO TID Aspirin 325 Mg Tablet 1 Tab PO DAILY Prilosec Otc (Omeprazole Magnesium) 20 Mg Tablet.dr 1 Tab PO DAILY Cymbalta (Duloxetine Hcl) 60 Mg Capsule.dr 1 Cap PO DAILY Hydroxychloroquine Sulfate 200 Mg Tablet 1 Tab PO BID Finasteride 5 Mg Tablet 1 Tab PO DAILY Zoloft (Sertraline Hcl) 50 Mg Tablet 1 Tab PO DAILY Omeprazole 40 Mg Capsule.dr 1 Cap PO DAILY Metformin Hcl Er (Metformin Hcl) 1,000 Mg Tab.er.24 1,000 Mg PO DAILYWBKFT Cephalexin 500 Mg Capsule 2 Cap PO BID 10 Days Hydrocodone-Apap 7.5-325 (Hydrocodone Bit/Acetaminophen) 1 Each Tablet 1 Tab PO PRN Q6HRS PRN NITROGLYCERIN SubLingual (Nitroglycerin) 0.4 Mg Tab.subl 0.4 Mg SL PRN Q5MIN PRN Levemir (Insulin Detemir) 100 Unit/1 Ml Vial 50 Unit SQ BID Breo Ellipta 200-25 Mcg INH (Fluticasone/Vilanterol) 1 Each Blst.w.dev 2 Puff IH DAILY PRN Atorvastatin Calcium 20 Mg Tablet 20 Mg PO HS Gabapentin 300 Mg Capsule 300 Mg PO TID NEXT DOSE DUE AT 2 PM AND AT BEDTIME Carvedilol 3.125 Mg Tablet 1 Tab PO BID NEXT DOSE DUE WITH SUPPER TODAY Lisinopril 2.5 Mg Tablet 1 Tab PO DAILY NEXT DOSE DUE ON 11/05/14 Plavix (Clopidogrel Bisulfate) 75 Mg Tablet 1 Tab PO DAILY NEXT DOSE DUE ON 11/05/14 Tamsulosin Hcl 0.4 Mg Cap.er.24h 0.4 Mg PO HS MAY TAKE ANYTIME Prilosec (Omeprazole) 40 Mg Capsule.dr 40 Mg PO DAILY MAY TAKE ANY TIME Aspir 81 (Aspirin) 81 Mg Tablet. 81 Mg PO DAILY NEXT DOSE DUE ON 11/05/14 Vitals/I & O Vital Sign - Last 24 Hours 11/30/17 11/30/17 11/30/17 11/30/17 13:24 15:00 16:09 16:14 Temp 99.5 99.5 Pulse 109 109 Resp 40 B/P (MAP) 114/66 (82) 114/66 Pulse Ox 95 93 O2 Delivery Nasal Cannula Nasal Cannula Nasal Cannula O2 Flow Rate 2.0 2.0 2.0 11/30/17 11/30/17 11/30/17 11/30/17 16:15 18:39 19:00 19:42 Temp 98.6 98.6 Pulse 111 Resp 40 B/P (MAP) 113/63 (80) Pulse Ox 94 92 O2 Delivery Nasal Cannula Nasal Cannula Nasal Cannula Nasal Cannula O2 Flow Rate 2.0 6.0 2.0 6.0 11/30/17 11/30/17 11/30/17 12/01/17 20:00 21:37 23:00 03:00 Temp 98.6 97.5 98.6 97.5 Pulse 113 94 Resp 24 24 B/P (MAP) 118/79 (92) 96/63 (74) Pulse Ox 94 O2 Delivery Room Air Nasal Cannula Nasal Cannula O2 Flow Rate 6.0 2.0 12/01/17 12/01/17 12/01/17 12/01/17 07:00 07:15 07:17 08:22 Temp 97.9 97.9 Pulse 111 111 Resp 26 B/P (MAP) 148/90 (109) 148/90 Pulse Ox 93 95 O2 Delivery Nasal Cannula Room Air Nasal Cannula O2 Flow Rate 2.0 6.0 12/01/17 12/01/17 12/01/17 12/01/17 08:22 08:23 09:09 11:00 Temp 97.2 97.2 Pulse 111 109 Resp 26 B/P (MAP) 148/90 140/90 (107) Pulse Ox 95 96 O2 Delivery Nasal Cannula Nasal Cannula Nasal Cannula O2 Flow Rate 6.0 6.0 2.0 12/01/17 11:03 O2 Delivery Nasal Cannula O2 Flow Rate 6.0 Intake and Output 11/30/17 11/30/17 12/01/17 15:00 23:00 07:00 Intake Total 120 ml 50 ml Output Total 200 ml Balance 120 ml -150 ml MEENA GARCES MD Dec 01, 2017 13:05
--- NOTE | 2017-12-01 13:48 | PDOC ---
PULMONARY PROGRESS NOTES Subjective less soa Vitals Vital Signs Date Time Temp Pulse Resp B/P (MAP) Pulse Ox O2 Delivery O2 Flow Rate FiO2 12/01/17 11:03 Nasal Cannula 6.0 12/01/17 11:00 97.2 109 26 140/90 (107) 96 97.2 General: Alert, No acute distress Lungs: Clear Cardiovascular: S1 Abdomen: Soft Neuro Exam: Alert Extremities: Other (1=edema) Skin: Warm Labs Laboratory Tests Test 11/29/17 16:57 11/29/17 20:11 11/30/17 05:20 11/30/17 07:34 Glucose (Fingerstick) 140 mg/dL (70-99) 183 mg/dL (70-99) 173 mg/dL (70-99) O2 Saturation 93 % (92-99) Arterial Blood pH 7.39 (7.35-7.45) Arterial Blood pCO2 at Patient Temp 37 mmHg (35-46) Arterial Blood pO2 at Patient Temp 67 mmHg (65-108) Arterial Blood HCO3 22 mmol/L (21-28) Arterial Blood Base Excess -2 mmol/L (-3-3) FiO2 28 Test 11/30/17 11:50 11/30/17 16:47 11/30/17 21:04 12/01/17 06:45 Glucose (Fingerstick) 173 mg/dL (70-99) 95 mg/dL (70-99) 90 mg/dL (70-99) White Blood Count 14.1 x10^3/uL (4.0-11.0) Red Blood Count 4.97 x10^6/uL (4.30-5.70) Hemoglobin 15.2 g/dL (13.0-17.5) Hematocrit 44.4 % (39.0-53.0) Mean Corpuscular Volume 89 fL (79-100) Mean Corpuscular Hemoglobin 31 pg (25-35) Mean Corpuscular Hemoglobin Concent 34 g/dL (31-37) Red Cell Distribution Width 13.8 % (11.5-14.5) Platelet Count 161 x10^3/uL (140-400) Neutrophils (%) (Auto) 81 % (31-73) Lymphocytes (%) (Auto) 8 % (24-48) Monocytes (%) (Auto) 10 % (0-9) Eosinophils (%) (Auto) 1 % (0-3) Basophils (%) (Auto) 0 % (0-3) Neutrophils # (Auto) 11.4 x10^3uL (1.8-7.7) Lymphocytes # (Auto) 1.1 x10^3/uL (1.0-4.8) Monocytes # (Auto) 1.4 x10^3/uL (0.0-1.1) Eosinophils # (Auto) 0.1 x10^3/uL (0.0-0.7) Basophils # (Auto) 0.0 x10^3/uL (0.0-0.2) Sodium Level 139 mmol/L (136-145) Potassium Level 3.8 mmol/L (3.5-5.1) Chloride Level 103 mmol/L (98-107) Carbon Dioxide Level 26 mmol/L (21-32) Anion Gap 10 (6-14) Blood Urea Nitrogen 30 mg/dL (8-26) Creatinine 0.8 mg/dL (0.7-1.3) Estimated GFR (Cockcroft-Gault) 97.3 BUN/Creatinine Ratio 38 (6-20) Glucose Level 50 mg/dL (70-99) Calcium Level 9.2 mg/dL (8.5-10.1) Total Bilirubin 1.2 mg/dL (0.2-1.0) Aspartate Amino Transf (AST/SGOT) 30 U/L (15-37) Alanine Aminotransferase (ALT/SGPT) 38 U/L (16-63) Alkaline Phosphatase 127 U/L (46-116) Total Protein 7.4 g/dL (6.4-8.2) Albumin 3.1 g/dL (3.4-5.0) Albumin/Globulin Ratio 0.7 (1.0-1.7) Test 12/01/17 07:50 12/01/17 08:19 12/01/17 11:55 Glucose (Fingerstick) 52 mg/dL (70-99) 77 mg/dL (70-99) 164 mg/dL (70-99) Laboratory Tests Test 11/30/17 16:47 11/30/17 21:04 12/01/17 06:45 12/01/17 07:50 Glucose (Fingerstick) 95 mg/dL (70-99) 90 mg/dL (70-99) 52 mg/dL (70-99) White Blood Count 14.1 x10^3/uL (4.0-11.0) Red Blood Count 4.97 x10^6/uL (4.30-5.70) Hemoglobin 15.2 g/dL (13.0-17.5) Hematocrit 44.4 % (39.0-53.0) Mean Corpuscular Volume 89 fL (79-100) Mean Corpuscular Hemoglobin 31 pg (25-35) Mean Corpuscular Hemoglobin Concent 34 g/dL (31-37) Red Cell Distribution Width 13.8 % (11.5-14.5) Platelet Count 161 x10^3/uL (140-400) Neutrophils (%) (Auto) 81 % (31-73) Lymphocytes (%) (Auto) 8 % (24-48) Monocytes (%) (Auto) 10 % (0-9) Eosinophils (%) (Auto) 1 % (0-3) Basophils (%) (Auto) 0 % (0-3) Neutrophils # (Auto) 11.4 x10^3uL (1.8-7.7) Lymphocytes # (Auto) 1.1 x10^3/uL (1.0-4.8) Monocytes # (Auto) 1.4 x10^3/uL (0.0-1.1) Eosinophils # (Auto) 0.1 x10^3/uL (0.0-0.7) Basophils # (Auto) 0.0 x10^3/uL (0.0-0.2) Sodium Level 139 mmol/L (136-145) Potassium Level 3.8 mmol/L (3.5-5.1) Chloride Level 103 mmol/L (98-107) Carbon Dioxide Level 26 mmol/L (21-32) Anion Gap 10 (6-14) Blood Urea Nitrogen 30 mg/dL (8-26) Creatinine 0.8 mg/dL (0.7-1.3) Estimated GFR (Cockcroft-Gault) 97.3 BUN/Creatinine Ratio 38 (6-20) Glucose Level 50 mg/dL (70-99) Calcium Level 9.2 mg/dL (8.5-10.1) Total Bilirubin 1.2 mg/dL (0.2-1.0) Aspartate Amino Transf (AST/SGOT) 30 U/L (15-37) Alanine Aminotransferase (ALT/SGPT) 38 U/L (16-63) Alkaline Phosphatase 127 U/L (46-116) Total Protein 7.4 g/dL (6.4-8.2) Albumin 3.1 g/dL (3.4-5.0) Albumin/Globulin Ratio 0.7 (1.0-1.7) Test 12/01/17 08:19 12/01/17 11:55 Glucose (Fingerstick) 77 mg/dL (70-99) 164 mg/dL (70-99) Medications Active Scripts Medications Dose Route/Sig Max Daily Dose Days Date Category Dose Instructions Tresiba Flextouch U-200 (Insulin Degludec) 200 Unit/1 Ml Insuln.pen 75 Unit SQ BID 11/28/17 Reported Oxycodone Hcl 10 Mg Tablet 10 11/28/17 Reported Tamsulosin Hcl 0.4 Mg Cap.er.24h 1 Cap PO DAILY 11/28/17 Reported Gabapentin 300 Mg Capsule 300 Mg PO TID 11/28/17 Reported Aspirin 325 Mg Tablet 1 Tab PO DAILY 11/28/17 Reported Prilosec Otc (Omeprazole Magnesium) 20 Mg Tablet.dr 1 Tab PO DAILY 11/28/17 Reported Cymbalta (Duloxetine Hcl) 60 Mg Capsule.dr 1 Cap PO DAILY 11/28/17 Reported Eliquis (Apixaban) 5 Mg Tablet 5 Mg PO BID 10/08/16 Rx Hydroxychloroquine Sulfate 200 Mg Tablet 1 Tab PO BID 10/07/16 Reported Finasteride 5 Mg Tablet 1 Tab PO DAILY 10/07/16 Reported Zoloft (Sertraline Hcl) 50 Mg Tablet 1 Tab PO DAILY 10/07/16 Reported Omeprazole 40 Mg Capsule.dr 1 Cap PO DAILY 10/07/16 Reported Metformin Hcl Er (Metformin Hcl) 1,000 Mg Tab.er.24 1,000 Mg PO DAILYWBKFT 10/07/16 Reported Cephalexin 500 Mg Capsule 2 Cap PO BID 10 10/07/16 Reported Hydrocodone-Apap 7.5-325 (Hydrocodone Bit/Acetaminophen) 1 Each Tablet 1 Tab PO PRN Q6HRS PRN 10/07/16 Reported NITROGLYCERIN SubLingual (Nitroglycerin) 0.4 Mg Tab.subl 0.4 Mg SL PRN Q5MIN PRN 10/07/16 Reported Levemir (Insulin Detemir) 100 Unit/1 Ml Vial 50 Unit SQ BID 10/07/16 Reported Breo Ellipta 200-25 Mcg INH (Fluticasone/Vilanterol) 1 Each Blst.w.dev 2 Puff IH DAILY PRN 10/07/16 Reported Atorvastatin Calcium 20 Mg Tablet 20 Mg PO HS 12/17/14 Reported Gabapentin 300 Mg Capsule 300 Mg PO TID 11/03/14 Reported NEXT DOSE DUE AT 2 PM AND AT BEDTIME Carvedilol 3.125 Mg Tablet 1 Tab PO BID 09/25/14 Reported NEXT DOSE DUE WITH SUPPER TODAY Lisinopril 2.5 Mg Tablet 1 Tab PO DAILY 09/25/14 Reported NEXT DOSE DUE ON 11/05/14 Plavix (Clopidogrel Bisulfate) 75 Mg Tablet 1 Tab PO DAILY 09/25/14 Reported NEXT DOSE DUE ON 11/05/14 Tamsulosin Hcl 0.4 Mg Cap.er.24h 0.4 Mg PO HS 07/11/13 Reported MAY TAKE ANYTIME Prilosec (Omeprazole) 40 Mg Capsule. 40 Mg PO DAILY 07/11/13 Reported MAY TAKE ANY TIME Aspir 81 (Aspirin) 81 Mg Tablet. 81 Mg PO DAILY 07/11/13 Reported NEXT DOSE DUE ON 11/05/14 Impression . 1. Suspected severe chronic obstructive pulmonary disease. He has tobacco use all his life up to 3 packs per day and continues to smoke 1 pack per day. 2. Skin rash and also palpable lymph node on the neck. NOT SIG ON CT NECK/ REACTIVE 3. Underlying obesity. 4. History of coronary artery disease. 5. Syncopal episode. No evidence of any pulmonary embolism by CT angiogram. Plan . 1. clinically better today. continue nebs, responding to lasix since yesterday 2. Smoking cessation counseling provided. The patient does not appear to be interested in quitting tobacco. 3. Continue bronchodilators. 4. PFTs as an outpatient. D/W KAY COLON MD Dec 01, 2017 13:47
[2017-12-01 15:00] VITALS: BP 100/66
[2017-12-01 19:50] VITALS: BP 116/82
[2017-12-01] MEDS: ATORVASTATIN CALCIUM 20 MG TABLET PO SCH (20:16)
[2017-12-01 23:45] VITALS: BP 134/80
[2017-12-02] MEDS: MORPHINE SULFATE 2 MG/ML DISP.SYRIN. IV PRN ×2 (02:09→05:32)
[2017-12-02 03:42] VITALS: BP 140/99
[2017-12-02] MEDS: ALBUTEROL SULFATE 2.5 MG/3 ML NEBU. NEB PRN (05:39)
[2017-12-02] MEDS: ALPRAZolam 0.5 MG TABLET PO PRN (05:51)
[2017-12-02] MEDS: LIDOCAINE 2% TOPICAL JELLY 5GM TUBE. TP SCH ×5 (05:51→21:57)
[2017-12-02] MEDS: oxyCODONE/APAP 5/325 1 TAB TABLET PO PRN ×2 (06:34→22:33)
[2017-12-02 07:38] VITALS: BP 123/83
[2017-12-02] MEDS: INSULIN LISPRO 300 UNITS/3 ML INSULN.PEN. SQ SCH ×3 (08:00→17:52)
[2017-12-02] MEDS: ASPIRIN 325 MG TABLET PO SCH (08:19)
[2017-12-02] MEDS: GABAPENTIN 300 MG CAPSULE. PO SCH ×3 (08:19→21:06)
[2017-12-02] MEDS: LISINOPRIL 5 MG TABLET. PO SCH (08:20)
[2017-12-02] MEDS: PANTOPRAZOLE 40 MG TABLET.DR. PO SCH (08:21)
[2017-12-02] MEDS: DULoxetine HCL 30 MG CAPSULE.DR PO SCH (08:21)
[2017-12-02] MEDS: valACYclovir 500 MG TABLET. PO SCH ×3 (08:21→21:06)
[2017-12-02] MEDS: CARVEDILOL 6.25 MG TABLET. PO SCH ×2 (08:22→17:47)
[2017-12-02] MEDS: TAMSULOSIN 0.4 MG CAP.ER.24H. PO SCH (08:22)
[2017-12-02] MEDS: IPRATRPIUM/ALBUTEROL 0.5/2.5MG 3 ML NEBU. NEB SCH ×4 (08:42→19:30)
--- NOTE | 2017-12-02 09:07 | PDOC ---
PULMONARY PROGRESS NOTES Subjective has more sob, cough, wheezing, no pain Vitals Vital Signs Date Time Temp Pulse Resp B/P (MAP) Pulse Ox O2 Delivery O2 Flow Rate FiO2 12/02/17 08:45 92 Nasal Cannula 6.0 12/02/17 08:22 96 123/83 12/02/17 07:38 97.6 22 97.6 Comments ros as mentioned as above other sys otherwise neg General: Alert, No acute distress HEENT: Other (nc at perrl, nose throat clear) Lungs: Wheezing Cardiovascular: S1, S2 Abdomen: Soft, Non-tender, Other (no mass) Neuro Exam: Alert, Oriented Extremities: Other (edems) Skin: Warm Labs Laboratory Tests Test 11/30/17 11:50 11/30/17 16:47 11/30/17 21:04 12/01/17 06:45 Glucose (Fingerstick) 173 mg/dL (70-99) 95 mg/dL (70-99) 90 mg/dL (70-99) White Blood Count 14.1 x10^3/uL (4.0-11.0) Red Blood Count 4.97 x10^6/uL (4.30-5.70) Hemoglobin 15.2 g/dL (13.0-17.5) Hematocrit 44.4 % (39.0-53.0) Mean Corpuscular Volume 89 fL (79-100) Mean Corpuscular Hemoglobin 31 pg (25-35) Mean Corpuscular Hemoglobin Concent 34 g/dL (31-37) Red Cell Distribution Width 13.8 % (11.5-14.5) Platelet Count 161 x10^3/uL (140-400) Neutrophils (%) (Auto) 81 % (31-73) Lymphocytes (%) (Auto) 8 % (24-48) Monocytes (%) (Auto) 10 % (0-9) Eosinophils (%) (Auto) 1 % (0-3) Basophils (%) (Auto) 0 % (0-3) Neutrophils # (Auto) 11.4 x10^3uL (1.8-7.7) Lymphocytes # (Auto) 1.1 x10^3/uL (1.0-4.8) Monocytes # (Auto) 1.4 x10^3/uL (0.0-1.1) Eosinophils # (Auto) 0.1 x10^3/uL (0.0-0.7) Basophils # (Auto) 0.0 x10^3/uL (0.0-0.2) Sodium Level 139 mmol/L (136-145) Potassium Level 3.8 mmol/L (3.5-5.1) Chloride Level 103 mmol/L (98-107) Carbon Dioxide Level 26 mmol/L (21-32) Anion Gap 10 (6-14) Blood Urea Nitrogen 30 mg/dL (8-26) Creatinine 0.8 mg/dL (0.7-1.3) Estimated GFR (Cockcroft-Gault) 97.3 BUN/Creatinine Ratio 38 (6-20) Glucose Level 50 mg/dL (70-99) Calcium Level 9.2 mg/dL (8.5-10.1) Total Bilirubin 1.2 mg/dL (0.2-1.0) Aspartate Amino Transf (AST/SGOT) 30 U/L (15-37) Alanine Aminotransferase (ALT/SGPT) 38 U/L (16-63) Alkaline Phosphatase 127 U/L (46-116) Total Protein 7.4 g/dL (6.4-8.2) Albumin 3.1 g/dL (3.4-5.0) Albumin/Globulin Ratio 0.7 (1.0-1.7) Test 12/01/17 07:50 12/01/17 08:19 12/01/17 11:55 12/01/17 15:58 Glucose (Fingerstick) 52 mg/dL (70-99) 77 mg/dL (70-99) 164 mg/dL (70-99) 184 mg/dL (70-99) Test 12/01/17 20:22 12/01/17 22:47 12/02/17 07:19 Glucose (Fingerstick) 184 mg/dL (70-99) 149 mg/dL (70-99) 108 mg/dL (70-99) Laboratory Tests Test 12/01/17 11:55 12/01/17 15:58 12/01/17 20:22 12/01/17 22:47 Glucose (Fingerstick) 164 mg/dL (70-99) 184 mg/dL (70-99) 184 mg/dL (70-99) 149 mg/dL (70-99) Test 12/02/17 07:19 Glucose (Fingerstick) 108 mg/dL (70-99) Medications Active Scripts Medications Dose Route/Sig Max Daily Dose Days Date Category Dose Instructions Tresiba Flextouch U-200 (Insulin Degludec) 200 Unit/1 Ml Insuln.pen 75 Unit SQ BID 11/28/17 Reported Oxycodone Hcl 10 Mg Tablet 10 11/28/17 Reported Tamsulosin Hcl 0.4 Mg Cap.er.24h 1 Cap PO DAILY 11/28/17 Reported Gabapentin 300 Mg Capsule 300 Mg PO TID 11/28/17 Reported Aspirin 325 Mg Tablet 1 Tab PO DAILY 11/28/17 Reported Prilosec Otc (Omeprazole Magnesium) 20 Mg Tablet.dr 1 Tab PO DAILY 11/28/17 Reported Cymbalta (Duloxetine Hcl) 60 Mg Capsule.dr 1 Cap PO DAILY 11/28/17 Reported Eliquis (Apixaban) 5 Mg Tablet 5 Mg PO BID 10/08/16 Rx Hydroxychloroquine Sulfate 200 Mg Tablet 1 Tab PO BID 10/07/16 Reported Finasteride 5 Mg Tablet 1 Tab PO DAILY 10/07/16 Reported Zoloft (Sertraline Hcl) 50 Mg Tablet 1 Tab PO DAILY 10/07/16 Reported Omeprazole 40 Mg Capsule.dr 1 Cap PO DAILY 10/07/16 Reported Metformin Hcl Er (Metformin Hcl) 1,000 Mg Tab.er.24 1,000 Mg PO DAILYWBKFT 10/07/16 Reported Cephalexin 500 Mg Capsule 2 Cap PO BID 10 10/07/16 Reported Hydrocodone-Apap 7.5-325 (Hydrocodone Bit/Acetaminophen) 1 Each Tablet 1 Tab PO PRN Q6HRS PRN 10/07/16 Reported NITROGLYCERIN SubLingual (Nitroglycerin) 0.4 Mg Tab.subl 0.4 Mg SL PRN Q5MIN PRN 10/07/16 Reported Levemir (Insulin Detemir) 100 Unit/1 Ml Vial 50 Unit SQ BID 10/07/16 Reported Breo Ellipta 200-25 Mcg INH (Fluticasone/Vilanterol) 1 Each Blst.w.dev 2 Puff IH DAILY PRN 10/07/16 Reported Atorvastatin Calcium 20 Mg Tablet 20 Mg PO HS 12/17/14 Reported Gabapentin 300 Mg Capsule 300 Mg PO TID 11/03/14 Reported NEXT DOSE DUE AT 2 PM AND AT BEDTIME Carvedilol 3.125 Mg Tablet 1 Tab PO BID 09/25/14 Reported NEXT DOSE DUE WITH SUPPER TODAY Lisinopril 2.5 Mg Tablet 1 Tab PO DAILY 09/25/14 Reported NEXT DOSE DUE ON 11/05/14 Plavix (Clopidogrel Bisulfate) 75 Mg Tablet 1 Tab PO DAILY 09/25/14 Reported NEXT DOSE DUE ON 11/05/14 Tamsulosin Hcl 0.4 Mg Cap.er.24h 0.4 Mg PO HS 07/11/13 Reported MAY TAKE ANYTIME Prilosec (Omeprazole) 40 Mg Capsule. 40 Mg PO DAILY 07/11/13 Reported MAY TAKE ANY TIME Aspir 81 (Aspirin) 81 Mg Tablet. 81 Mg PO DAILY 07/11/13 Reported NEXT DOSE DUE ON 11/05/14 Comments reviewed, cxr 11/30, No acute cardiopulmonary abnormality Impression . 1. chronic obstructive pulmonary disease w ae. He has tobacco use all his life up to 3 packs per day and continues to smoke 1 pack per day. 2. Skin rash and also palpable lymph node on the neck. NOT SIG ON CT NECK/ REACTIVE 3. Underlying obesity, ? criselda. 4. History of coronary artery disease. 5. Syncopal episode. No evidence of any pulmonary embolism by CT angiogram. 6. acute resp fail Plan . 1. has more sob, wheezing, will change prednisone to solumedrol 40 q 8 hrs, increase nebs to q 4hrs, do cxr and review, lasix 20 mg iv now, keep I<O, monitor k, cr 2. Smoking cessation counseling provided. advised to quit smoking for ever 3. ICS 4. protonix for stress ulcer prophylaxis 5. add lovenox for dvt prophylaxis 6. PFTs as an outpatient. D/W ZENAIDA LIU MD Dec 02, 2017 09:07
[2017-12-02] MEDS: [UNRECOGNIZED DRUG - REMARK] SQ SCH ×2 (09:17→21:07)
[2017-12-02] MEDS ORDERED: BUDESONIDE 0.5 MG/2 ML NEBU. NEB ONE (09:30)
[2017-12-02] MEDS ORDERED: FUROSEMIDE 20 MG/2 ML VIAL. IVP ONE (09:30)
[2017-12-02] MEDS ORDERED: methylPREDNISolone SOD SUCC PF 40 MG/ML VIAL. IV ONE (09:30)
--- NOTE | 2017-12-02 09:51 | RAD ---
Portable chest, 12/02/2017: HISTORY: Shortness of breath Comparison is made to a study from 11/30/2017. A left-sided transvenous pacemaker remains in place with 2 leads extending into the right heart. The heart is within normal limits in size. No acute infiltrate is seen. There is no evidence of pleural fluid. IMPRESSION: No acute abnormality is detected with no significant change since 11/30/2017. Electronically signed by: Héctor Moise MD (12/02/2017 9:48 AM) [facility]
[2017-12-02] MEDS: TRIAMCINOLONE ACETONIDE 0.1% TOPICAL CREAM 15GM TUBE. TP SCH ×2 (10:22→21:07)
[2017-12-02] MEDS: NYSTATIN TOPICAL POWDER 15GM BOTTLE. TP SCH ×2 (10:23→21:07)
--- NOTE | 2017-12-02 10:38 | PDOC ---
PROGRESS NOTES Chief Complaint Chief Complaint dizzy/ lightheaded, presyncope, acute pain, skin rash, shingles, VZV PPM H/O CAD WITH stents dm2 on insulin COPD, w acute bronchitis, tobaccoism HTN HLD GERD depression BPH marijuana use h/o stroke with mild rt side weakness groin aron dermatitis History of Present Illness History of Present Illness IV steroids, nebs, cont current discussed with PULM cont IV antiviral , pustules look much better, less pain topical pain treatment CV following check orthostatic BP nystatin powder for groin area Vitals Vitals Vital Signs Date Time Temp Pulse Resp B/P (MAP) Pulse Ox O2 Delivery O2 Flow Rate FiO2 12/02/17 08:45 92 Nasal Cannula 6.0 12/02/17 08:22 96 123/83 12/02/17 07:38 97.6 22 97.6 Physical Exam General: Alert, Oriented X3, Cooperative, No acute distress Heart: Normal S1, Normal S2, No murmurs Lungs: Wheezing Abdomen: Normal bowel sounds, Soft Extremities: No edema Skin: Other Labs LABS Laboratory Tests Test 12/01/17 11:55 12/01/17 15:58 12/01/17 20:22 12/01/17 22:47 Glucose (Fingerstick) 164 mg/dL (70-99) 184 mg/dL (70-99) 184 mg/dL (70-99) 149 mg/dL (70-99) Test 12/02/17 07:19 Glucose (Fingerstick) 108 mg/dL (70-99) Assessment and Plan Assessmemt and Plan Problems Medical Problems: (1) COPD (chronic obstructive pulmonary disease) Status: Acute (2) Pre-syncope Status: Acute Comment Review of Relevant I have reviewed the following items bud (where applicable) has been applied. Labs Laboratory Tests Test 11/30/17 11:50 11/30/17 16:47 11/30/17 21:04 12/01/17 06:45 Glucose (Fingerstick) 173 mg/dL (70-99) 95 mg/dL (70-99) 90 mg/dL (70-99) White Blood Count 14.1 x10^3/uL (4.0-11.0) Red Blood Count 4.97 x10^6/uL (4.30-5.70) Hemoglobin 15.2 g/dL (13.0-17.5) Hematocrit 44.4 % (39.0-53.0) Mean Corpuscular Volume 89 fL (79-100) Mean Corpuscular Hemoglobin 31 pg (25-35) Mean Corpuscular Hemoglobin Concent 34 g/dL (31-37) Red Cell Distribution Width 13.8 % (11.5-14.5) Platelet Count 161 x10^3/uL (140-400) Neutrophils (%) (Auto) 81 % (31-73) Lymphocytes (%) (Auto) 8 % (24-48) Monocytes (%) (Auto) 10 % (0-9) Eosinophils (%) (Auto) 1 % (0-3) Basophils (%) (Auto) 0 % (0-3) Neutrophils # (Auto) 11.4 x10^3uL (1.8-7.7) Lymphocytes # (Auto) 1.1 x10^3/uL (1.0-4.8) Monocytes # (Auto) 1.4 x10^3/uL (0.0-1.1) Eosinophils # (Auto) 0.1 x10^3/uL (0.0-0.7) Basophils # (Auto) 0.0 x10^3/uL (0.0-0.2) Sodium Level 139 mmol/L (136-145) Potassium Level 3.8 mmol/L (3.5-5.1) Chloride Level 103 mmol/L (98-107) Carbon Dioxide Level 26 mmol/L (21-32) Anion Gap 10 (6-14) Blood Urea Nitrogen 30 mg/dL (8-26) Creatinine 0.8 mg/dL (0.7-1.3) Estimated GFR (Cockcroft-Gault) 97.3 BUN/Creatinine Ratio 38 (6-20) Glucose Level 50 mg/dL (70-99) Calcium Level 9.2 mg/dL (8.5-10.1) Total Bilirubin 1.2 mg/dL (0.2-1.0) Aspartate Amino Transf (AST/SGOT) 30 U/L (15-37) Alanine Aminotransferase (ALT/SGPT) 38 U/L (16-63) Alkaline Phosphatase 127 U/L (46-116) Total Protein 7.4 g/dL (6.4-8.2) Albumin 3.1 g/dL (3.4-5.0) Albumin/Globulin Ratio 0.7 (1.0-1.7) Test 12/01/17 07:50 12/01/17 08:19 12/01/17 11:55 12/01/17 15:58 Glucose (Fingerstick) 52 mg/dL (70-99) 77 mg/dL (70-99) 164 mg/dL (70-99) 184 mg/dL (70-99) Test 12/01/17 20:22 12/01/17 22:47 12/02/17 07:19 Glucose (Fingerstick) 184 mg/dL (70-99) 149 mg/dL (70-99) 108 mg/dL (70-99) Laboratory Tests Test 12/01/17 11:55 12/01/17 15:58 12/01/17 20:22 12/01/17 22:47 Glucose (Fingerstick) 164 mg/dL (70-99) 184 mg/dL (70-99) 184 mg/dL (70-99) 149 mg/dL (70-99) Test 12/02/17 07:19 Glucose (Fingerstick) 108 mg/dL (70-99) Microbiology 11/28/17 Blood Culture - Preliminary, Resulted NO GROWTH AFTER 4 DAYS Medications Current Medications Albuterol/ Ipratropium (Duoneb) 3 ml 1X ONCE NEB Last administered on at 10:01; Start 11/28/17 at 10:00; Stop 11/28/17 at 10:01; Status DC Lidocaine HCl (Lidocaine Pf 2% Vial) 5 ml 1X ONCE IJ ; Start 11/28/17 at 11:30; Stop 11/28/17 at 11:39; Status DC Sodium Chloride 1,000 ml @ 1,000 mls/hr 1X ONCE IV Last administered on at 11:51; Start 11/28/17 at 11:30; Stop 11/28/17 at 12:29; Status DC Iohexol (Omnipaque 300 Mg/ml) 75 ml 1X ONCE IV Last administered on 11/28/17at 12:00; Start 11/28/17 at 11:45; Stop 11/28/17 at 11:46; Status DC Info (CONTRAST GIVEN -- Rx MONITORING) 1 each PRN DAILY PRN MC SEE COMMENTS; Start 11/28/17 at 11:45; Stop 11/30/17 at 11:44; Status DC Albuterol/ Ipratropium (Duoneb) 3 ml 1X ONCE NEB Last administered on at 13:48; Start 11/28/17 at 13:00; Stop 11/28/17 at 13:01; Status DC Ondansetron HCl (Zofran) 4 mg PRN Q8HRS PRN IV NAUSEA/VOMITING; Start 11/28/17 at 13:00; Stop 11/28/17 at 13:52; Status DC Morphine Sulfate (Morphine Sulfate) 2 mg PRN Q2HR PRN IV PAIN; Start 11/28/17 at 13:00; Stop 11/28/17 at 13:51; Status DC Acetaminophen (Tylenol) 650 mg PRN Q4HRS PRN PO FEVER; Start 11/28/17 at 13:00; Stop 11/28/17 at 13:51; Status DC Ceftriaxone Sodium 50 ml @ 100 mls/hr 1X ONCE IV Last administered on at 13:56; Start 11/28/17 at 14:00; Stop 11/28/17 at 14:29; Status DC Azithromycin 500 mg/Sodium Chloride 250 ml @ 250 mls/hr 1X ONCE IV Last administered on 11/28/17at 15:58; Start 11/28/17 at 14:30; Stop 11/28/17 at 15:29; Status DC Sodium Chloride 1,000 ml @ 1,000 mls/hr 1X ONCE IV Last administered on at 13:39; Start 11/28/17 at 13:45; Stop 11/28/17 at 14:44; Status DC Sodium Chloride 1,000 ml @ 1,000 mls/hr 1X ONCE IV Last administered on at 16:15; Start 11/28/17 at 13:45; Stop 11/28/17 at 14:44; Status DC Acetaminophen (Tylenol) 650 mg PRN Q6HRS PRN PO FEVER; Start 11/28/17 at 13:45 Ondansetron HCl (Zofran) 4 mg PRN Q6HRS PRN IV NAUSEA/VOMITING; Start 11/28/17 at 13:45 Morphine Sulfate (Morphine Sulfate) 2 mg PRN Q2HR PRN IV MODERATE TO SEVERE PAIN Last administered on 11/30/17at 04:43; Start 11/28/17 at 13:45; Stop 11/30/17 at 12:59; Status DC Tramadol HCl (Ultram) 50 mg PRN Q6HRS PRN PO MILD TO MODERATE PAIN Last administered on 11/29/17at 13:22; Start 11/28/17 at 13:45 Hydralazine HCl (Apresoline Inj) 10 mg PRN Q4HRS PRN IVP ELEVATED BP, SEE COMMENTS; Start 11/28/17 at 13:45 Docusate Sodium (Colace) 100 mg PRN DAILY PRN PO CONSTIPATION; Start 11/28/17 at 13:45 Albuterol/ Ipratropium (Duoneb) 3 ml RTQID NEB Last administered on 12/02/17at 08:42; Start 11/28/17 at 16:00; Stop 12/02/17 at 09:10; Status DC Albuterol Sulfate (Ventolin Neb Soln) 2.5 mg PRN Q2HR PRN NEB SHORTNESS OF BREATH Last administered on 12/02/17at 05:39; Start 11/28/17 at 13:45 Guaifenesin (Mucinex) 600 mg BID PO Last administered on 12/02/17at 08:21; Start 11/28/17 at 14:30 Triamcinolone Acetonide (Kenalog) 1 karsten BID TP Last administered on 12/02/17at 10:22; Start 11/28/17 at 21:00 Nystatin (Nystop) 1 karsten BID TP Last administered on 12/02/17at 10:23; Start 11/28 at 21:00 Diphenhydramine HCl (Benadryl) 25 mg PRN Q6HRS PRN PO ITCHING Last administered on 11/29/17at 23:11; Start 11/28/17 at 13:45 Insulin Human Lispro (HumaLOG) 0-9 UNITS TIDWMEALS SQ Last administered on 12/01at 16:02; Start 11/28/17 at 17:00 Dextrose (Dextrose 50%-Water Syringe) 12.5 gm PRN Q15MIN PRN IV SEE COMMENTS; Start 11/28/17 at 13:45 Oxycodone/ Acetaminophen (Percocet 5/325) 1 tab PRN Q6HRS PRN PO SEVERE PAIN Last administered on 12/02/17 06:34; Start 11/28/17 at 17:00 Tamsulosin HCl (Flomax) 0.4 mg DAILY PO Last administered on 12/02/17 08:22; Start 11/28/17 at 18:00 Aspirin (Jorge Luis Aspirin) 325 mg DAILY PO Last administered on 12/02/17 08:19; Start 11/28/17 at 18:00 Duloxetine HCl (Cymbalta) 60 mg DAILY PO Last administered on 12/02/17 08:21; Start 11/28/17 at 18:00 Gabapentin (Neurontin) 300 mg TID PO Last administered on 12/02/17 08:19; Start 11/28/17 at 21:00 Pantoprazole Sodium (Protonix) 40 mg DAILYAC PO Last administered on 12/02/17 08:21; Start 11/28/17 at 18:00 Valacyclovir HCl (Valtrex) 1,000 mg TID PO Last administered on 12/02/17 08:21 ; Start 11/28/17 at 21:00 Insulin Human Lispro (HumaLOG) 6 units 1X ONCE SQ Last administered on 20:52; Start 11/28/17 at 20:45; Stop 11/28/17 at 20:46; Status DC Non-Formulary Medication 1 ea BID SQ Last administered on 12/02/17 09:17; Start 11/28/17 at 23:00 Pneumococcal Polyvalent Vaccine (Do NOT chart on this placeholder) 1 each 1X ONCE MC ; Start 11/29/17 at 00:00; Stop 11/29/17 at 00:01; Status UNV Pneumococcal Polyvalent Vaccine (Pneumovax 23) 0.5 ml ONCE ONCE VAX IM Last administered on 11/29/17at 18:20; Start 11/29/17 at 10:30; Stop 11/29/17 at 10:31; Status DC Lidocaine HCl (Xylocaine 2% Topical 5gm Tube) 1 karsten PRN Q6HRS PRN TP pain Last administered on 11/29/17 20:22; Start 11/29/17 at 13:30; Stop 11/30/17 at 12:59; Status DC Fenofibrate (Lofibra) 54 mg DAILY PO ; Start 11/29/17 at 14:00; Stop 11/29/17 at 14:00; Status DC Atorvastatin Calcium (Lipitor) 20 mg HS PO Last administered on 12/01/17at 20:16 ; Start 11/29/17 at 21:00 Carvedilol (Coreg) 3.125 mg BIDWMEALS PO Last administered on 11/30/17 08:08; Start 11/29/17 at 17:00; Stop 11/30/17 at 11:19; Status DC Lisinopril (Prinivil) 2.5 mg DAILY PO Last administered on 12/02/17at 08:20; Start 11/29/17 at 14:00 Alprazolam (Xanax) 0.5 mg PRN Q8HRS PRN PO ANXIETY / AGITATION Last administered on 12/02/17at 05:51; Start 11/30/17 at 00:15 Throat Lozenges (Cepacol Sore Throat Lozenge) 1 stuart PRN Q2HRS PRN PO SORE THROAT Last administered on 11/30/17at 16:14; Start 11/30/17 at 00:15 Alprazolam (Xanax) 0.5 mg 1X ONCE PO Last administered on 11/30/17 05:14; Start 11/30/17 at 05:15; Stop 11/30/17 at 05:17; Status DC Carvedilol (Coreg) 6.25 mg BIDWMEALS PO Last administered on 12/02/17at 08:22; Start 11/30/17 at 17:00 Carvedilol (Coreg) 3.125 mg 1X ONCE PO Last administered on 11/30/17at 12:19; Start 11/30/17 at 11:30; Stop 11/30/17 at 11:31; Status DC Lidocaine HCl (Xylocaine 2% Topical 5gm Tube) 1 karsten Q4HRS W/A TP Last administered on 12/02/17at 10:22; Start 11/30/17 at 14:00 Morphine Sulfate (Morphine Sulfate) 4 mg PRN Q2HR PRN IV MODERATE TO SEVERE PAIN Last administered on 12/02/17at 05:32; Start 11/30/17 at 13:00 Sodium Bicarbonate (Sodium Bicarb Adult 8.4% Syr) 50 meq 1X ONCE IV Last administered on 11/30/17at 16:18; Start 11/30/17 at 16:00; Stop 11/30/17 at 16:04; Status DC Furosemide (Lasix) 20 mg 1X ONCE IVP Last administered on 11/30/17at 16:44; Start 11/30/17 at 16:15; Stop 11/30/17 at 16:16; Status DC Furosemide (Lasix) 20 mg 1X ONCE IVP Last administered on 11/30/17at 18:38; Start 11/30/17 at 18:45; Stop 11/30/17 at 18:46; Status DC Budesonide (Pulmicort) 0.5 mg RTBID NEB ; Start 12/02/17 at 20:00 Budesonide (Pulmicort) 0.5 mg 1X ONCE NEB ; Start 12/02/17 at 09:30; Stop 12/02 at 09:31; Status DC Methylprednisolone Sodium Succinate (SOLU-Medrol 40MG VIAL) 40 mg 1X ONCE IV Last administered on 12/02/17at 09:16; Start 12/02/17 at 09:30; Stop 12/02/17 at 09:31; Status DC Prednisone (Prednisone) 40 mg DAILY PO ; Start 12/03/17 at 09:00; Stop 12/03/17 at 09:00; Status DC Albuterol/ Ipratropium (Duoneb) 3 ml Q4HRS NEB ; Start 12/02/17 at 12:00 Methylprednisolone Sodium Succinate (SOLU-Medrol 40MG VIAL) 40 mg Q8HRS IV ; Start 12/02/17 at 14:00 Furosemide (Lasix) 20 mg 1X ONCE IVP Last administered on 12/02/17at 10:22; Start 12/02/17 at 09:30; Stop 12/02/17 at 09:31; Status DC Active Scripts Active Eliquis (Apixaban) 5 Mg Tablet 5 Mg PO BID Reported Tresiba Flextouch U-200 (Insulin Degludec) 200 Unit/1 Ml Insuln.pen 75 Unit SQ BID Oxycodone Hcl 10 Mg Tablet 10 Tamsulosin Hcl 0.4 Mg Cap.er.24h 1 Cap PO DAILY Gabapentin 300 Mg Capsule 300 Mg PO TID Aspirin 325 Mg Tablet 1 Tab PO DAILY Prilosec Otc (Omeprazole Magnesium) 20 Mg Tablet.dr 1 Tab PO DAILY Cymbalta (Duloxetine Hcl) 60 Mg Capsule. 1 Cap PO DAILY Hydroxychloroquine Sulfate 200 Mg Tablet 1 Tab PO BID Finasteride 5 Mg Tablet 1 Tab PO DAILY Zoloft (Sertraline Hcl) 50 Mg Tablet 1 Tab PO DAILY Omeprazole 40 Mg Capsule. 1 Cap PO DAILY Metformin Hcl Er (Metformin Hcl) 1,000 Mg Tab.er.24 1,000 Mg PO DAILYWBKFT Cephalexin 500 Mg Capsule 2 Cap PO BID 10 Days Hydrocodone-Apap 7.5-325 (Hydrocodone Bit/Acetaminophen) 1 Each Tablet 1 Tab PO PRN Q6HRS PRN NITROGLYCERIN SubLingual (Nitroglycerin) 0.4 Mg Tab.subl 0.4 Mg SL PRN Q5MIN PRN Levemir (Insulin Detemir) 100 Unit/1 Ml Vial 50 Unit SQ BID Breo Ellipta 200-25 Mcg INH (Fluticasone/Vilanterol) 1 Each Blst.w.dev 2 Puff IH DAILY PRN Atorvastatin Calcium 20 Mg Tablet 20 Mg PO HS Gabapentin 300 Mg Capsule 300 Mg PO TID NEXT DOSE DUE AT 2 PM AND AT BEDTIME Carvedilol 3.125 Mg Tablet 1 Tab PO BID NEXT DOSE DUE WITH SUPPER TODAY Lisinopril 2.5 Mg Tablet 1 Tab PO DAILY NEXT DOSE DUE ON 11/05/14 Plavix (Clopidogrel Bisulfate) 75 Mg Tablet 1 Tab PO DAILY NEXT DOSE DUE ON 11/05/14 Tamsulosin Hcl 0.4 Mg Cap.er.24h 0.4 Mg PO HS MAY TAKE ANYTIME Prilosec (Omeprazole) 40 Mg Capsule. 40 Mg PO DAILY MAY TAKE ANY TIME Aspir 81 (Aspirin) 81 Mg Tablet. 81 Mg PO DAILY NEXT DOSE DUE ON 11/05/14 Vitals/I & O Vital Sign - Last 24 Hours 12/01/17 12/01/17 12/01/17 12/01/17 11:00 11:03 15:00 15:03 Temp 97.2 98.4 97.2 98.4 Pulse 109 103 Resp 26 22 B/P (MAP) 140/90 (107) 100/66 (77) Pulse Ox 96 94 O2 Delivery Nasal Cannula Nasal Cannula Nasal Cannula Nasal Cannula O2 Flow Rate 2.0 6.0 4.0 6.0 12/01/17 12/01/17 12/01/17 12/01/17 15:57 19:50 20:00 20:16 Temp 97.7 97.7 Pulse 103 107 Resp 20 B/P (MAP) 100/66 116/82 (93) Pulse Ox 95 96 O2 Delivery Nasal Cannula Nasal Cannula Nasal Cannula O2 Flow Rate 4.0 4.0 4.0 12/01/17 12/01/17 12/01/17 12/02/17 21:19 23:18 23:45 02:09 Temp 97.9 97.9 Pulse 72 Resp 20 B/P (MAP) 134/80 (98) Pulse Ox 93 97 92 O2 Delivery Nasal Cannula Nasal Cannula Nasal Cannula Nasal Cannula O2 Flow Rate 6.0 4.0 4.0 5.0 12/02/17 12/02/17 12/02/17 12/02/17 03:42 05:32 05:39 06:02 Temp 99.1 99.1 Pulse 112 Resp 24 B/P (MAP) 140/99 (113) Pulse Ox 91 95 O2 Delivery Nasal Cannula Nasal Cannula Nasal Cannula Nasal Cannula O2 Flow Rate 6.0 6.0 6.0 6.0 12/02/17 12/02/17 12/02/17 12/02/17 06:34 07:34 07:38 08:20 Temp 97.6 97.6 Pulse 96 96 Resp 24 22 B/P (MAP) 123/83 (96) 123/83 Pulse Ox 95 O2 Delivery Nasal Cannula Nasal Cannula Nasal Cannula O2 Flow Rate 6.0 6.0 12/02/17 12/02/17 08:22 08:45 Pulse 96 B/P (MAP) 123/83 Pulse Ox 92 O2 Delivery Nasal Cannula O2 Flow Rate 6.0 Intake and Output 12/01/17 12/01/17 12/02/17 15:00 23:00 07:00 Intake Total 175 ml 850 ml Output Total 350 ml 400 ml Balance -175 ml 450 ml MEENA GARCES MD Dec 02, 2017 10:38
[2017-12-02 11:43] VITALS: BP 123/85
--- NOTE | 2017-12-02 14:46 | PDOC ---
PROGRESS NOTES Assessment Problems Medical Problems: (1) COPD (chronic obstructive pulmonary disease) Status: Acute (2) Pre-syncope Status: Acute Shingles Presyncope feelings in a patient with known carotid artery hypersensitivity syndrome as well as diabetic neuropathy, undoubtedly with a component of autonomic neuropathy. No evidence of any primary neurological problem such as stroke, cerebrovascular disease, or seizure. Diabetic neuropathy Cervical spondylosis without radiculopathy on EMG Multiple entrapment neuropathies: bilateral carpal tunnel syndrome, left cubital tunnel syndrome, and right Guyon's canal syndrome Not orthostatic, pacemaker checked out fine COPD Plan Symptomatic treatment of varicella Will follow at intervals Subjective More short of air today Objective Vital Signs Date Time Temp Pulse Resp B/P (MAP) Pulse Ox O2 Delivery O2 Flow Rate FiO2 12/02/17 12:03 Nasal Cannula 6.0 12/02/17 11:43 98.6 94 22 123/85 (98) 99 98.6 Intake and Output 12/02/17 07:00 Intake Total 1025 ml Output Total 750 ml Balance 275 ml Intake Oral 1025 ml Output Urine Total 750 ml # Voids 2 PHYSICAL EXAM Alert. Oriented to time, place and person. PERRL. EOMI. CN: no focal findings. Muscle tone: normal. Muscle strength: 4/5 DTR: 0+ Plantar reflex: flexor Gait: not examined in bed. Sensory exam: stocking loss No cerebellar signs elicited. Review of Relevant I have reviewed the following items bud (where applicable) has been applied. Labs Laboratory Tests Test 11/30/17 16:47 11/30/17 21:04 12/01/17 06:45 12/01/17 07:50 Glucose (Fingerstick) 95 mg/dL (70-99) 90 mg/dL (70-99) 52 mg/dL (70-99) White Blood Count 14.1 x10^3/uL (4.0-11.0) Red Blood Count 4.97 x10^6/uL (4.30-5.70) Hemoglobin 15.2 g/dL (13.0-17.5) Hematocrit 44.4 % (39.0-53.0) Mean Corpuscular Volume 89 fL (79-100) Mean Corpuscular Hemoglobin 31 pg (25-35) Mean Corpuscular Hemoglobin Concent 34 g/dL (31-37) Red Cell Distribution Width 13.8 % (11.5-14.5) Platelet Count 161 x10^3/uL (140-400) Neutrophils (%) (Auto) 81 % (31-73) Lymphocytes (%) (Auto) 8 % (24-48) Monocytes (%) (Auto) 10 % (0-9) Eosinophils (%) (Auto) 1 % (0-3) Basophils (%) (Auto) 0 % (0-3) Neutrophils # (Auto) 11.4 x10^3uL (1.8-7.7) Lymphocytes # (Auto) 1.1 x10^3/uL (1.0-4.8) Monocytes # (Auto) 1.4 x10^3/uL (0.0-1.1) Eosinophils # (Auto) 0.1 x10^3/uL (0.0-0.7) Basophils # (Auto) 0.0 x10^3/uL (0.0-0.2) Sodium Level 139 mmol/L (136-145) Potassium Level 3.8 mmol/L (3.5-5.1) Chloride Level 103 mmol/L (98-107) Carbon Dioxide Level 26 mmol/L (21-32) Anion Gap 10 (6-14) Blood Urea Nitrogen 30 mg/dL (8-26) Creatinine 0.8 mg/dL (0.7-1.3) Estimated GFR (Cockcroft-Gault) 97.3 BUN/Creatinine Ratio 38 (6-20) Glucose Level 50 mg/dL (70-99) Calcium Level 9.2 mg/dL (8.5-10.1) Total Bilirubin 1.2 mg/dL (0.2-1.0) Aspartate Amino Transf (AST/SGOT) 30 U/L (15-37) Alanine Aminotransferase (ALT/SGPT) 38 U/L (16-63) Alkaline Phosphatase 127 U/L (46-116) Total Protein 7.4 g/dL (6.4-8.2) Albumin 3.1 g/dL (3.4-5.0) Albumin/Globulin Ratio 0.7 (1.0-1.7) Test 12/01/17 08:19 12/01/17 11:55 12/01/17 15:58 12/01/17 20:22 Glucose (Fingerstick) 77 mg/dL (70-99) 164 mg/dL (70-99) 184 mg/dL (70-99) 184 mg/dL (70-99) Test 12/01/17 22:47 12/02/17 07:19 12/02/17 10:29 12/02/17 11:33 Glucose (Fingerstick) 149 mg/dL (70-99) 108 mg/dL (70-99) 187 mg/dL (70-99) 253 mg/dL (70-99) Laboratory Tests Test 12/01/17 15:58 12/01/17 20:22 12/01/17 22:47 12/02/17 07:19 Glucose (Fingerstick) 184 mg/dL (70-99) 184 mg/dL (70-99) 149 mg/dL (70-99) 108 mg/dL (70-99) Test 12/02/17 10:29 12/02/17 11:33 Glucose (Fingerstick) 187 mg/dL (70-99) 253 mg/dL (70-99) Microbiology 11/28/17 Blood Culture - Preliminary, Resulted NO GROWTH AFTER 4 DAYS Medications Current Medications Albuterol/ Ipratropium (Duoneb) 3 ml 1X ONCE NEB Last administered on at 10:01; Start 11/28/17 at 10:00; Stop 11/28/17 at 10:01; Status DC Lidocaine HCl (Lidocaine Pf 2% Vial) 5 ml 1X ONCE IJ ; Start 11/28/17 at 11:30; Stop 11/28/17 at 11:39; Status DC Sodium Chloride 1,000 ml @ 1,000 mls/hr 1X ONCE IV Last administered on at 11:51; Start 11/28/17 at 11:30; Stop 11/28/17 at 12:29; Status DC Iohexol (Omnipaque 300 Mg/ml) 75 ml 1X ONCE IV Last administered on 11/28/17at 12:00; Start 11/28/17 at 11:45; Stop 11/28/17 at 11:46; Status DC Info (CONTRAST GIVEN -- Rx MONITORING) 1 each PRN DAILY PRN MC SEE COMMENTS; Start 11/28/17 at 11:45; Stop 11/30/17 at 11:44; Status DC Albuterol/ Ipratropium (Duoneb) 3 ml 1X ONCE NEB Last administered on at 13:48; Start 11/28/17 at 13:00; Stop 11/28/17 at 13:01; Status DC Ondansetron HCl (Zofran) 4 mg PRN Q8HRS PRN IV NAUSEA/VOMITING; Start 11/28/17 at 13:00; Stop 11/28/17 at 13:52; Status DC Morphine Sulfate (Morphine Sulfate) 2 mg PRN Q2HR PRN IV PAIN; Start 11/28/17 at 13:00; Stop 11/28/17 at 13:51; Status DC Acetaminophen (Tylenol) 650 mg PRN Q4HRS PRN PO FEVER; Start 11/28/17 at 13:00; Stop 11/28/17 at 13:51; Status DC Ceftriaxone Sodium 50 ml @ 100 mls/hr 1X ONCE IV Last administered on at 13:56; Start 11/28/17 at 14:00; Stop 11/28/17 at 14:29; Status DC Azithromycin 500 mg/Sodium Chloride 250 ml @ 250 mls/hr 1X ONCE IV Last administered on 11/28/17at 15:58; Start 11/28/17 at 14:30; Stop 11/28/17 at 15:29; Status DC Sodium Chloride 1,000 ml @ 1,000 mls/hr 1X ONCE IV Last administered on at 13:39; Start 11/28/17 at 13:45; Stop 11/28/17 at 14:44; Status DC Sodium Chloride 1,000 ml @ 1,000 mls/hr 1X ONCE IV Last administered on at 16:15; Start 11/28/17 at 13:45; Stop 11/28/17 at 14:44; Status DC Acetaminophen (Tylenol) 650 mg PRN Q6HRS PRN PO FEVER; Start 11/28/17 at 13:45 Ondansetron HCl (Zofran) 4 mg PRN Q6HRS PRN IV NAUSEA/VOMITING; Start 11/28/17 at 13:45 Morphine Sulfate (Morphine Sulfate) 2 mg PRN Q2HR PRN IV MODERATE TO SEVERE PAIN Last administered on 11/30/17at 04:43; Start 11/28/17 at 13:45; Stop 11/30/17 at 12:59; Status DC Tramadol HCl (Ultram) 50 mg PRN Q6HRS PRN PO MILD TO MODERATE PAIN Last administered on 11/29/17 13:22; Start 11/28/17 at 13:45 Hydralazine HCl (Apresoline Inj) 10 mg PRN Q4HRS PRN IVP ELEVATED BP, SEE COMMENTS; Start 11/28/17 at 13:45 Docusate Sodium (Colace) 100 mg PRN DAILY PRN PO CONSTIPATION; Start 11/28/17 at 13:45 Albuterol/ Ipratropium (Duoneb) 3 ml RTQID NEB Last administered on 12/02/17 08:42; Start 11/28/17 at 16:00; Stop 12/02/17 at 09:10; Status DC Albuterol Sulfate (Ventolin Neb Soln) 2.5 mg PRN Q2HR PRN NEB SHORTNESS OF BREATH Last administered on 12/02/17at 05:39; Start 11/28/17 at 13:45 Guaifenesin (Mucinex) 600 mg BID PO Last administered on 12/02/17at 08:21; Start 11/28/17 at 14:30 Triamcinolone Acetonide (Kenalog) 1 karsten BID TP Last administered on 12/02/17 10:22; Start 11/28/17 at 21:00 Nystatin (Nystop) 1 karsten BID TP Last administered on 12/02/17 10:23; Start 11/28 at 21:00 Diphenhydramine HCl (Benadryl) 25 mg PRN Q6HRS PRN PO ITCHING Last administered on 11/29/17at 23:11; Start 11/28/17 at 13:45 Insulin Human Lispro (HumaLOG) 0-9 UNITS TIDWMEALS SQ Last administered on 12/02 13:35; Start 11/28/17 at 17:00 Dextrose (Dextrose 50%-Water Syringe) 12.5 gm PRN Q15MIN PRN IV SEE COMMENTS; Start 11/28/17 at 13:45 Oxycodone/ Acetaminophen (Percocet 5/325) 1 tab PRN Q6HRS PRN PO SEVERE PAIN Last administered on 12/02/17at 06:34; Start 11/28/17 at 17:00 Tamsulosin HCl (Flomax) 0.4 mg DAILY PO Last administered on 12/02/17 08:22; Start 11/28/17 at 18:00 Aspirin (Jorge Luis Aspirin) 325 mg DAILY PO Last administered on 12/02/17 08:19; Start 11/28/17 at 18:00 Duloxetine HCl (Cymbalta) 60 mg DAILY PO Last administered on 12/02/17 08:21; Start 11/28/17 at 18:00 Gabapentin (Neurontin) 300 mg TID PO Last administered on 12/02/17 08:19; Start 11/28/17 at 21:00 Pantoprazole Sodium (Protonix) 40 mg DAILYAC PO Last administered on 12/02/17 08:21; Start 11/28/17 at 18:00 Valacyclovir HCl (Valtrex) 1,000 mg TID PO Last administered on 12/02/17 08:21 ; Start 11/28/17 at 21:00 Insulin Human Lispro (HumaLOG) 6 units 1X ONCE SQ Last administered on at 20:52; Start 11/28/17 at 20:45; Stop 11/28/17 at 20:46; Status DC Non-Formulary Medication 1 ea BID SQ Last administered on 12/02/17 09:17; Start 11/28/17 at 23:00 Pneumococcal Polyvalent Vaccine (Do NOT chart on this placeholder) 1 each 1X ONCE MC ; Start 11/29/17 at 00:00; Stop 11/29/17 at 00:01; Status UNV Pneumococcal Polyvalent Vaccine (Pneumovax 23) 0.5 ml ONCE ONCE VAX IM Last administered on 11/29/17at 18:20; Start 11/29/17 at 10:30; Stop 11/29/17 at 10:31; Status DC Lidocaine HCl (Xylocaine 2% Topical 5gm Tube) 1 karsten PRN Q6HRS PRN TP pain Last administered on 11/29/17 20:22; Start 11/29/17 at 13:30; Stop 11/30/17 at 12:59; Status DC Fenofibrate (Lofibra) 54 mg DAILY PO ; Start 11/29/17 at 14:00; Stop 11/29/17 at 14:00; Status DC Atorvastatin Calcium (Lipitor) 20 mg HS PO Last administered on 12/01/17 20:16 ; Start 11/29/17 at 21:00 Carvedilol (Coreg) 3.125 mg BIDWMEALS PO Last administered on 11/30/17 08:08; Start 11/29/17 at 17:00; Stop 11/30/17 at 11:19; Status DC Lisinopril (Prinivil) 2.5 mg DAILY PO Last administered on 12/02/17 08:20; Start 11/29/17 at 14:00 Alprazolam (Xanax) 0.5 mg PRN Q8HRS PRN PO ANXIETY / AGITATION Last administered on 12/02/17 05:51; Start 11/30/17 at 00:15 Throat Lozenges (Cepacol Sore Throat Lozenge) 1 stuart PRN Q2HRS PRN PO SORE THROAT Last administered on 11/30/17 16:14; Start 11/30/17 at 00:15 Alprazolam (Xanax) 0.5 mg 1X ONCE PO Last administered on 11/30/17 05:14; Start 11/30/17 at 05:15; Stop 11/30/17 at 05:17; Status DC Carvedilol (Coreg) 6.25 mg BIDWMEALS PO Last administered on 12/02/17 08:22; Start 11/30/17 at 17:00 Carvedilol (Coreg) 3.125 mg 1X ONCE PO Last administered on 11/30/17 12:19; Start 11/30/17 at 11:30; Stop 11/30/17 at 11:31; Status DC Lidocaine HCl (Xylocaine 2% Topical 5gm Tube) 1 karsten Q4HRS W/A TP Last administered on 12/02/17 10:22; Start 11/30/17 at 14:00 Morphine Sulfate (Morphine Sulfate) 4 mg PRN Q2HR PRN IV MODERATE TO SEVERE PAIN Last administered on 12/02/17 05:32; Start 11/30/17 at 13:00 Sodium Bicarbonate (Sodium Bicarb Adult 8.4% Syr) 50 meq 1X ONCE IV Last administered on 11/30/17 16:18; Start 11/30/17 at 16:00; Stop 11/30/17 at 16:04; Status DC Furosemide (Lasix) 20 mg 1X ONCE IVP Last administered on 11/30/17at 16:44; Start 11/30/17 at 16:15; Stop 11/30/17 at 16:16; Status DC Furosemide (Lasix) 20 mg 1X ONCE IVP Last administered on 11/30/17at 18:38; Start 11/30/17 at 18:45; Stop 11/30/17 at 18:46; Status DC Budesonide (Pulmicort) 0.5 mg RTBID NEB ; Start 12/02/17 at 20:00 Budesonide (Pulmicort) 0.5 mg 1X ONCE NEB ; Start 12/02/17 at 09:30; Stop 12/02 at 09:31; Status DC Methylprednisolone Sodium Succinate (SOLU-Medrol 40MG VIAL) 40 mg 1X ONCE IV Last administered on 12/02/17at 09:16; Start 12/02/17 at 09:30; Stop 12/02/17 at 09:31; Status DC Prednisone (Prednisone) 40 mg DAILY PO ; Start 12/03/17 at 09:00; Stop 12/03/17 at 09:00; Status DC Albuterol/ Ipratropium (Duoneb) 3 ml Q4HRS NEB Last administered on 12/02/17at 12:01; Start 12/02/17 at 12:00 Methylprednisolone Sodium Succinate (SOLU-Medrol 40MG VIAL) 40 mg Q8HRS IV ; Start 12/02/17 at 14:00 Furosemide (Lasix) 20 mg 1X ONCE IVP Last administered on 12/02/17at 10:22; Start 12/02/17 at 09:30; Stop 12/02/17 at 09:31; Status DC Active Scripts Active Eliquis (Apixaban) 5 Mg Tablet 5 Mg PO BID Reported Tresiba Flextouch U-200 (Insulin Degludec) 200 Unit/1 Ml Insuln.pen 75 Unit SQ BID Oxycodone Hcl 10 Mg Tablet 10 Tamsulosin Hcl 0.4 Mg Cap.er.24h 1 Cap PO DAILY Gabapentin 300 Mg Capsule 300 Mg PO TID Aspirin 325 Mg Tablet 1 Tab PO DAILY Prilosec Otc (Omeprazole Magnesium) 20 Mg Tablet.dr 1 Tab PO DAILY Cymbalta (Duloxetine Hcl) 60 Mg Capsule. 1 Cap PO DAILY Hydroxychloroquine Sulfate 200 Mg Tablet 1 Tab PO BID Finasteride 5 Mg Tablet 1 Tab PO DAILY Zoloft (Sertraline Hcl) 50 Mg Tablet 1 Tab PO DAILY Omeprazole 40 Mg Capsule. 1 Cap PO DAILY Metformin Hcl Er (Metformin Hcl) 1,000 Mg Tab.er.24 1,000 Mg PO DAILYWBKFT Cephalexin 500 Mg Capsule 2 Cap PO BID 10 Days Hydrocodone-Apap 7.5-325 (Hydrocodone Bit/Acetaminophen) 1 Each Tablet 1 Tab PO PRN Q6HRS PRN NITROGLYCERIN SubLingual (Nitroglycerin) 0.4 Mg Tab.subl 0.4 Mg SL PRN Q5MIN PRN Levemir (Insulin Detemir) 100 Unit/1 Ml Vial 50 Unit SQ BID Breo Ellipta 200-25 Mcg INH (Fluticasone/Vilanterol) 1 Each Blst.w.dev 2 Puff IH DAILY PRN Atorvastatin Calcium 20 Mg Tablet 20 Mg PO HS Gabapentin 300 Mg Capsule 300 Mg PO TID NEXT DOSE DUE AT 2 PM AND AT BEDTIME Carvedilol 3.125 Mg Tablet 1 Tab PO BID NEXT DOSE DUE WITH SUPPER TODAY Lisinopril 2.5 Mg Tablet 1 Tab PO DAILY NEXT DOSE DUE ON 11/05/14 Plavix (Clopidogrel Bisulfate) 75 Mg Tablet 1 Tab PO DAILY NEXT DOSE DUE ON 11/05/14 Tamsulosin Hcl 0.4 Mg Cap.er.24h 0.4 Mg PO HS MAY TAKE ANYTIME Prilosec (Omeprazole) 40 Mg Capsule. 40 Mg PO DAILY MAY TAKE ANY TIME Aspir 81 (Aspirin) 81 Mg Tablet. 81 Mg PO DAILY NEXT DOSE DUE ON 11/05/14 Vitals/I & O Vital Sign - Last 24 Hours 12/01/17 12/01/17 12/01/17 12/01/17 15:00 15:03 15:57 19:50 Temp 98.4 97.7 98.4 97.7 Pulse 103 103 107 Resp 22 20 B/P (MAP) 100/66 (77) 100/66 116/82 (93) Pulse Ox 94 95 O2 Delivery Nasal Cannula Nasal Cannula Nasal Cannula O2 Flow Rate 4.0 6.0 4.0 12/01/17 12/01/17 12/01/17 12/01/17 20:00 20:16 21:19 23:18 Pulse Ox 96 93 O2 Delivery Nasal Cannula Nasal Cannula Nasal Cannula Nasal Cannula O2 Flow Rate 4.0 4.0 6.0 4.0 12/01/17 12/02/17 12/02/17 12/02/17 23:45 02:09 03:42 05:32 Temp 97.9 99.1 97.9 99.1 Pulse 72 112 Resp 20 24 B/P (MAP) 134/80 (98) 140/99 (113) Pulse Ox 97 92 91 O2 Delivery Nasal Cannula Nasal Cannula Nasal Cannula Nasal Cannula O2 Flow Rate 4.0 5.0 6.0 6.0 12/02/17 12/02/17 12/02/17 12/02/17 05:39 06:02 06:34 07:34 Resp 24 Pulse Ox 95 O2 Delivery Nasal Cannula Nasal Cannula Nasal Cannula Nasal Cannula O2 Flow Rate 6.0 6.0 6.0 12/02/17 12/02/17 12/02/17 12/02/17 07:38 08:00 08:20 08:22 Temp 97.6 97.6 Pulse 96 96 96 Resp 22 B/P (MAP) 123/83 (96) 123/83 123/83 Pulse Ox 95 O2 Delivery Nasal Cannula Nasal Cannula O2 Flow Rate 6.0 6.0 12/02/17 12/02/17 12/02/17 08:45 11:43 12:03 Temp 98.6 98.6 Pulse 94 Resp 22 B/P (MAP) 123/85 (98) Pulse Ox 92 99 O2 Delivery Nasal Cannula Nasal Cannula Nasal Cannula O2 Flow Rate 6.0 6.0 6.0 Intake and Output 12/01/17 12/01/17 12/02/17 15:00 23:00 07:00 Intake Total 175 ml 850 ml Output Total 350 ml 400 ml Balance -175 ml 450 ml DENIA PAGAN MD Dec 02, 2017 14:46
[2017-12-02] MEDS: methylPREDNISolone SOD SUCC PF 40 MG/ML VIAL. IV SCH ×2 (14:57→21:57)
[2017-12-02 15:28] VITALS: BP 130/90
[2017-12-02] MEDS: BUDESONIDE 0.5 MG/2 ML NEBU. NEB SCH (19:40)
[2017-12-02 19:55] VITALS: BP 154/78
[2017-12-02] MEDS: ATORVASTATIN CALCIUM 20 MG TABLET PO SCH (21:06)
[2017-12-02] MEDS ORDERED: guaiFENesin DM 200MG/20MG 10 ML SYRUP PO PRN (21:45)
[2017-12-02] MEDS ORDERED: HYDROcodone/CHLORPHEN POLIS 5 ML SUS.ER.12H PO PRN (21:45)
[2017-12-02] MEDS ORDERED: INSULIN LISPRO 300 UNITS/3 ML INSULN.PEN. SQ ONE (21:45)
[2017-12-02 23:40] VITALS: BP 126/75
[2017-12-03 03:50] VITALS: BP 119/85
[2017-12-03] MEDS: IPRATRPIUM/ALBUTEROL 0.5/2.5MG 3 ML NEBU. NEB SCH ×6 (04:00→20:53)
[2017-12-03 06:04] LABS: CALCIUM 9.4 mg/dL (8.5-10.1); CREATININE 1.1 mg/dL (0.7-1.3); GFR 67.4; POTASSIUM 3.8 mmol/L (3.5-5.1)
[2017-12-03] MEDS: BUDESONIDE 0.5 MG/2 ML NEBU. NEB SCH ×2 (06:05→20:53)
[2017-12-03] MEDS: methylPREDNISolone SOD SUCC PF 40 MG/ML VIAL. IV SCH ×2 (06:36→20:44)
[2017-12-03] MEDS: LIDOCAINE 2% TOPICAL JELLY 5GM TUBE. TP SCH ×5 (06:36→20:44)
[2017-12-03] MEDS: oxyCODONE/APAP 5/325 1 TAB TABLET PO PRN ×3 (06:53→20:43)
[2017-12-03 07:00] VITALS: BP 121/85
[2017-12-03] MEDS ORDERED: predniSONE 20 MG TABLET PO SCH (09:00)
--- NOTE | 2017-12-03 09:06 | PDOC ---
PULMONARY PROGRESS NOTES Subjective sob is better, has cough, no pain Vitals Vital Signs Date Time Temp Pulse Resp B/P (MAP) Pulse Ox O2 Delivery O2 Flow Rate FiO2 12/03/17 07:00 97.5 107 22 121/85 (97) 91 Nasal Cannula 6.0 97.5 Comments ros as mentioned as above other sys otherwise neg General: Alert, No acute distress HEENT: Other (nc at perrl, nose throat clear) Lungs: Crackles Cardiovascular: S1, S2 Abdomen: Soft, Non-tender, Other (no mass) Neuro Exam: Alert, Oriented Extremities: Other (edems) Skin: Warm Labs Laboratory Tests Test 12/01/17 11:55 12/01/17 15:58 12/01/17 20:22 12/01/17 22:47 Glucose (Fingerstick) 164 mg/dL (70-99) 184 mg/dL (70-99) 184 mg/dL (70-99) 149 mg/dL (70-99) Test 12/02/17 07:19 12/02/17 10:29 12/02/17 11:33 12/02/17 15:19 Glucose (Fingerstick) 108 mg/dL (70-99) 187 mg/dL (70-99) 253 mg/dL (70-99) 307 mg/dL (70-99) Test 12/02/17 17:48 12/02/17 21:36 12/03/17 05:00 12/03/17 07:35 Glucose (Fingerstick) 290 mg/dL (70-99) 330 mg/dL (70-99) 272 mg/dL (70-99) Sodium Level 138 mmol/L (136-145) Potassium Level 3.8 mmol/L (3.5-5.1) Chloride Level 103 mmol/L (98-107) Carbon Dioxide Level 27 mmol/L (21-32) Anion Gap 8 (6-14) Blood Urea Nitrogen 35 mg/dL (8-26) Creatinine 1.1 mg/dL (0.7-1.3) Estimated GFR (Cockcroft-Gault) 67.4 Glucose Level 262 mg/dL (70-99) Calcium Level 9.4 mg/dL (8.5-10.1) Laboratory Tests Test 12/02/17 10:29 12/02/17 11:33 12/02/17 15:19 12/02/17 17:48 Glucose (Fingerstick) 187 mg/dL (70-99) 253 mg/dL (70-99) 307 mg/dL (70-99) 290 mg/dL (70-99) Test 12/02/17 21:36 12/03/17 05:00 12/03/17 07:35 Glucose (Fingerstick) 330 mg/dL (70-99) 272 mg/dL (70-99) Sodium Level 138 mmol/L (136-145) Potassium Level 3.8 mmol/L (3.5-5.1) Chloride Level 103 mmol/L (98-107) Carbon Dioxide Level 27 mmol/L (21-32) Anion Gap 8 (6-14) Blood Urea Nitrogen 35 mg/dL (8-26) Creatinine 1.1 mg/dL (0.7-1.3) Estimated GFR (Cockcroft-Gault) 67.4 Glucose Level 262 mg/dL (70-99) Calcium Level 9.4 mg/dL (8.5-10.1) Medications Active Scripts Medications Dose Route/Sig Max Daily Dose Days Date Category Dose Instructions Tresiba Flextouch U-200 (Insulin Degludec) 200 Unit/1 Ml Insuln.pen 75 Unit SQ BID 11/28/17 Reported Oxycodone Hcl 10 Mg Tablet 10 11/28/17 Reported Tamsulosin Hcl 0.4 Mg Cap.er.24h 1 Cap PO DAILY 11/28/17 Reported Gabapentin 300 Mg Capsule 300 Mg PO TID 11/28/17 Reported Aspirin 325 Mg Tablet 1 Tab PO DAILY 11/28/17 Reported Prilosec Otc (Omeprazole Magnesium) 20 Mg Tablet.dr 1 Tab PO DAILY 11/28/17 Reported Cymbalta (Duloxetine Hcl) 60 Mg Capsule.dr 1 Cap PO DAILY 11/28/17 Reported Eliquis (Apixaban) 5 Mg Tablet 5 Mg PO BID 10/08/16 Rx Hydroxychloroquine Sulfate 200 Mg Tablet 1 Tab PO BID 10/07/16 Reported Finasteride 5 Mg Tablet 1 Tab PO DAILY 10/07/16 Reported Zoloft (Sertraline Hcl) 50 Mg Tablet 1 Tab PO DAILY 10/07/16 Reported Omeprazole 40 Mg Capsule.dr 1 Cap PO DAILY 10/07/16 Reported Metformin Hcl Er (Metformin Hcl) 1,000 Mg Tab.er.24 1,000 Mg PO DAILYWBKFT 10/07/16 Reported Cephalexin 500 Mg Capsule 2 Cap PO BID 10 10/07/16 Reported Hydrocodone-Apap 7.5-325 (Hydrocodone Bit/Acetaminophen) 1 Each Tablet 1 Tab PO PRN Q6HRS PRN 10/07/16 Reported NITROGLYCERIN SubLingual (Nitroglycerin) 0.4 Mg Tab.subl 0.4 Mg SL PRN Q5MIN PRN 10/07/16 Reported Levemir (Insulin Detemir) 100 Unit/1 Ml Vial 50 Unit SQ BID 10/07/16 Reported Breo Ellipta 200-25 Mcg INH (Fluticasone/Vilanterol) 1 Each Blst.w.dev 2 Puff IH DAILY PRN 10/07/16 Reported Atorvastatin Calcium 20 Mg Tablet 20 Mg PO HS 12/17/14 Reported Gabapentin 300 Mg Capsule 300 Mg PO TID 11/03/14 Reported NEXT DOSE DUE AT 2 PM AND AT BEDTIME Carvedilol 3.125 Mg Tablet 1 Tab PO BID 09/25/14 Reported NEXT DOSE DUE WITH SUPPER TODAY Lisinopril 2.5 Mg Tablet 1 Tab PO DAILY 09/25/14 Reported NEXT DOSE DUE ON 11/05/14 Plavix (Clopidogrel Bisulfate) 75 Mg Tablet 1 Tab PO DAILY 09/25/14 Reported NEXT DOSE DUE ON 11/05/14 Tamsulosin Hcl 0.4 Mg Cap.er.24h 0.4 Mg PO HS 07/11/13 Reported MAY TAKE ANYTIME Prilosec (Omeprazole) 40 Mg Capsule. 40 Mg PO DAILY 07/11/13 Reported MAY TAKE ANY TIME Aspir 81 (Aspirin) 81 Mg Tablet.dr 81 Mg PO DAILY 07/11/13 Reported NEXT DOSE DUE ON 11/05/14 Comments reviewed, cxr 11/30, No acute cardiopulmonary abnormality Impression . 1. chronic obstructive pulmonary disease w ae. He has tobacco use all his life up to 3 packs per day and continues to smoke 1 pack per day. 2. Skin rash and also palpable lymph node on the neck. NOT SIG ON CT NECK/ REACTIVE 3. Underlying obesity, ? criselda. 4. History of coronary artery disease. 5. Syncopal episode. No evidence of any pulmonary embolism by CT angiogram. 6. acute resp fail Plan . 1. change solumedrol to 40 q 12 hrs, cont nebs to q 4hrs, do cxr, reviewed no infilt, keep I<O, monitor k, cr 2. Smoking cessation counseling provided. advised to quit smoking for ever 3. ICS 4. protonix for stress ulcer prophylaxis 5. lovenox for dvt prophylaxis 6. PFTs as an outpatient. D/W RN pt ZENAIDA MAGALLANES MD Dec 03, 2017 09:06
[2017-12-03] MEDS: PANTOPRAZOLE 40 MG TABLET.DR. PO SCH (09:44)
[2017-12-03] MEDS: CARVEDILOL 6.25 MG TABLET. PO SCH ×2 (09:45→17:51)
[2017-12-03] MEDS: DULoxetine HCL 30 MG CAPSULE.DR PO SCH (09:45)
[2017-12-03] MEDS: ASPIRIN 325 MG TABLET PO SCH (09:45)
[2017-12-03] MEDS: TAMSULOSIN 0.4 MG CAP.ER.24H. PO SCH (09:46)
[2017-12-03] MEDS: GABAPENTIN 300 MG CAPSULE. PO SCH ×3 (09:47→20:43)
[2017-12-03] MEDS: LISINOPRIL 5 MG TABLET. PO SCH (09:48)
[2017-12-03] MEDS: valACYclovir 500 MG TABLET. PO SCH ×3 (09:48→20:43)
[2017-12-03] MEDS: NYSTATIN TOPICAL POWDER 15GM BOTTLE. TP SCH ×2 (09:49→20:45)
[2017-12-03] MEDS: TRIAMCINOLONE ACETONIDE 0.1% TOPICAL CREAM 15GM TUBE. TP SCH ×2 (09:49→20:44)
[2017-12-03] MEDS: [UNRECOGNIZED DRUG - REMARK] SQ SCH ×2 (09:53→20:50)
[2017-12-03] MEDS: INSULIN LISPRO 300 UNITS/3 ML INSULN.PEN. SQ SCH ×6 (10:02→18:08)
[2017-12-03] MEDS: MORPHINE SULFATE 2 MG/ML DISP.SYRIN. IV PRN ×2 (10:29→17:53)
[2017-12-03 11:00] VITALS: BP 124/71
--- NOTE | 2017-12-03 14:36 | PDOC ---
PROGRESS NOTES Chief Complaint Chief Complaint COPD, w acute bronchitis, acute pain, skin rash, shingles, VZV dizzy/ lightheaded, presyncope, H/O CAD WITH stents dm2 on insulin tobacco use disroder, HTN HLD GERD depression BPH marijuana use h/o stroke with mild rt side weakness groin aron dermatitis History of Present Illness History of Present Illness he is more calm, still having coughing "fits" pain better rest distress is much improved, more calm IV steroids, nebs, cont current discussed with PULM topical pain treatment may be able to DC soon Vitals Vitals Vital Signs Date Time Temp Pulse Resp B/P (MAP) Pulse Ox O2 Delivery O2 Flow Rate FiO2 12/03/17 13:25 2 97 Nasal Cannula 5.0 12/03/17 11:00 98.7 112 124/71 (88) 98.7 Physical Exam General: Alert, Oriented X3, Cooperative, No acute distress Heart: Normal S1, Normal S2, No murmurs Lungs: Crackles Abdomen: Normal bowel sounds, Soft Extremities: No edema Skin: Other Labs LABS Laboratory Tests Test 12/02/17 15:19 12/02/17 17:48 12/02/17 21:36 12/03/17 05:00 Glucose (Fingerstick) 307 mg/dL (70-99) 290 mg/dL (70-99) 330 mg/dL (70-99) Sodium Level 138 mmol/L (136-145) Potassium Level 3.8 mmol/L (3.5-5.1) Chloride Level 103 mmol/L (98-107) Carbon Dioxide Level 27 mmol/L (21-32) Anion Gap 8 (6-14) Blood Urea Nitrogen 35 mg/dL (8-26) Creatinine 1.1 mg/dL (0.7-1.3) Estimated GFR (Cockcroft-Gault) 67.4 Glucose Level 262 mg/dL (70-99) Calcium Level 9.4 mg/dL (8.5-10.1) Test 12/03/17 07:35 12/03/17 11:52 Glucose (Fingerstick) 272 mg/dL (70-99) 322 mg/dL (70-99) Assessment and Plan Assessmemt and Plan Problems Medical Problems: (1) COPD (chronic obstructive pulmonary disease) Status: Acute (2) Pre-syncope Status: Acute Comment Review of Relevant I have reviewed the following items bud (where applicable) has been applied. Labs Laboratory Tests Test 12/01/17 15:58 12/01/17 20:22 12/01/17 22:47 12/02/17 07:19 Glucose (Fingerstick) 184 mg/dL (70-99) 184 mg/dL (70-99) 149 mg/dL (70-99) 108 mg/dL (70-99) Test 12/02/17 10:29 12/02/17 11:33 12/02/17 15:19 12/02/17 17:48 Glucose (Fingerstick) 187 mg/dL (70-99) 253 mg/dL (70-99) 307 mg/dL (70-99) 290 mg/dL (70-99) Test 12/02/17 21:36 12/03/17 05:00 12/03/17 07:35 12/03/17 11:52 Glucose (Fingerstick) 330 mg/dL (70-99) 272 mg/dL (70-99) 322 mg/dL (70-99) Sodium Level 138 mmol/L (136-145) Potassium Level 3.8 mmol/L (3.5-5.1) Chloride Level 103 mmol/L (98-107) Carbon Dioxide Level 27 mmol/L (21-32) Anion Gap 8 (6-14) Blood Urea Nitrogen 35 mg/dL (8-26) Creatinine 1.1 mg/dL (0.7-1.3) Estimated GFR (Cockcroft-Gault) 67.4 Glucose Level 262 mg/dL (70-99) Calcium Level 9.4 mg/dL (8.5-10.1) Laboratory Tests Test 12/02/17 15:19 12/02/17 17:48 12/02/17 21:36 12/03/17 05:00 Glucose (Fingerstick) 307 mg/dL (70-99) 290 mg/dL (70-99) 330 mg/dL (70-99) Sodium Level 138 mmol/L (136-145) Potassium Level 3.8 mmol/L (3.5-5.1) Chloride Level 103 mmol/L (98-107) Carbon Dioxide Level 27 mmol/L (21-32) Anion Gap 8 (6-14) Blood Urea Nitrogen 35 mg/dL (8-26) Creatinine 1.1 mg/dL (0.7-1.3) Estimated GFR (Cockcroft-Gault) 67.4 Glucose Level 262 mg/dL (70-99) Calcium Level 9.4 mg/dL (8.5-10.1) Test 12/03/17 07:35 12/03/17 11:52 Glucose (Fingerstick) 272 mg/dL (70-99) 322 mg/dL (70-99) Microbiology 11/28/17 Blood Culture - Final, Complete NO GROWTH AFTER 5 DAYS Medications Current Medications Albuterol/ Ipratropium (Duoneb) 3 ml 1X ONCE NEB Last administered on at 10:01; Start 11/28/17 at 10:00; Stop 11/28/17 at 10:01; Status DC Lidocaine HCl (Lidocaine Pf 2% Vial) 5 ml 1X ONCE IJ ; Start 11/28/17 at 11:30; Stop 11/28/17 at 11:39; Status DC Sodium Chloride 1,000 ml @ 1,000 mls/hr 1X ONCE IV Last administered on at 11:51; Start 11/28/17 at 11:30; Stop 11/28/17 at 12:29; Status DC Iohexol (Omnipaque 300 Mg/ml) 75 ml 1X ONCE IV Last administered on 11/28/17at 12:00; Start 11/28/17 at 11:45; Stop 11/28/17 at 11:46; Status DC Info (CONTRAST GIVEN -- Rx MONITORING) 1 each PRN DAILY PRN MC SEE COMMENTS; Start 11/28/17 at 11:45; Stop 11/30/17 at 11:44; Status DC Albuterol/ Ipratropium (Duoneb) 3 ml 1X ONCE NEB Last administered on at 13:48; Start 11/28/17 at 13:00; Stop 11/28/17 at 13:01; Status DC Ondansetron HCl (Zofran) 4 mg PRN Q8HRS PRN IV NAUSEA/VOMITING; Start 11/28/17 at 13:00; Stop 11/28/17 at 13:52; Status DC Morphine Sulfate (Morphine Sulfate) 2 mg PRN Q2HR PRN IV PAIN; Start 11/28/17 at 13:00; Stop 11/28/17 at 13:51; Status DC Acetaminophen (Tylenol) 650 mg PRN Q4HRS PRN PO FEVER; Start 11/28/17 at 13:00; Stop 11/28/17 at 13:51; Status DC Ceftriaxone Sodium 50 ml @ 100 mls/hr 1X ONCE IV Last administered on at 13:56; Start 11/28/17 at 14:00; Stop 11/28/17 at 14:29; Status DC Azithromycin 500 mg/Sodium Chloride 250 ml @ 250 mls/hr 1X ONCE IV Last administered on 11/28/17at 15:58; Start 11/28/17 at 14:30; Stop 11/28/17 at 15:29; Status DC Sodium Chloride 1,000 ml @ 1,000 mls/hr 1X ONCE IV Last administered on at 13:39; Start 11/28/17 at 13:45; Stop 11/28/17 at 14:44; Status DC Sodium Chloride 1,000 ml @ 1,000 mls/hr 1X ONCE IV Last administered on at 16:15; Start 11/28/17 at 13:45; Stop 11/28/17 at 14:44; Status DC Acetaminophen (Tylenol) 650 mg PRN Q6HRS PRN PO FEVER; Start 11/28/17 at 13:45 Ondansetron HCl (Zofran) 4 mg PRN Q6HRS PRN IV NAUSEA/VOMITING; Start 11/28/17 at 13:45 Morphine Sulfate (Morphine Sulfate) 2 mg PRN Q2HR PRN IV MODERATE TO SEVERE PAIN Last administered on 11/30/17at 04:43; Start 11/28/17 at 13:45; Stop 11/30/17 at 12:59; Status DC Tramadol HCl (Ultram) 50 mg PRN Q6HRS PRN PO MILD TO MODERATE PAIN Last administered on 11/29/17at 13:22; Start 11/28/17 at 13:45 Hydralazine HCl (Apresoline Inj) 10 mg PRN Q4HRS PRN IVP ELEVATED BP, SEE COMMENTS; Start 11/28/17 at 13:45 Docusate Sodium (Colace) 100 mg PRN DAILY PRN PO CONSTIPATION; Start 11/28/17 at 13:45 Albuterol/ Ipratropium (Duoneb) 3 ml RTQID NEB Last administered on 12/02/17 08:42; Start 11/28/17 at 16:00; Stop 12/02/17 at 09:10; Status DC Albuterol Sulfate (Ventolin Neb Soln) 2.5 mg PRN Q2HR PRN NEB SHORTNESS OF BREATH Last administered on 12/02/17at 05:39; Start 11/28/17 at 13:45 Guaifenesin (Mucinex) 600 mg BID PO Last administered on 12/03/17 09:46; Start 11/28/17 at 14:30 Triamcinolone Acetonide (Kenalog) 1 karsten BID TP Last administered on 12/03/17 09:49; Start 11/28/17 at 21:00 Nystatin (Nystop) 1 karsten BID TP Last administered on 12/03/17 09:49; Start 11/28 at 21:00 Diphenhydramine HCl (Benadryl) 25 mg PRN Q6HRS PRN PO ITCHING Last administered on 11/29/17at 23:11; Start 11/28/17 at 13:45 Insulin Human Lispro (HumaLOG) 0-9 UNITS TIDWMEALS SQ Last administered on 12/03 12:27; Start 11/28/17 at 17:00 Dextrose (Dextrose 50%-Water Syringe) 12.5 gm PRN Q15MIN PRN IV SEE COMMENTS; Start 11/28/17 at 13:45 Oxycodone/ Acetaminophen (Percocet 5/325) 1 tab PRN Q6HRS PRN PO SEVERE PAIN Last administered on 12/03/17at 13:25; Start 11/28/17 at 17:00 Tamsulosin HCl (Flomax) 0.4 mg DAILY PO Last administered on 12/03/17 09:46; Start 11/28/17 at 18:00 Aspirin (Jorge Luis Aspirin) 325 mg DAILY PO Last administered on 12/03/17 09:45; Start 11/28/17 at 18:00 Duloxetine HCl (Cymbalta) 60 mg DAILY PO Last administered on 12/03/17 09:45; Start 11/28/17 at 18:00 Gabapentin (Neurontin) 300 mg TID PO Last administered on 12/03/17 13:23; Start 11/28/17 at 21:00 Pantoprazole Sodium (Protonix) 40 mg DAILYAC PO Last administered on 12/03/17 09:44; Start 11/28/17 at 18:00 Valacyclovir HCl (Valtrex) 1,000 mg TID PO Last administered on 12/03/17 13:24 ; Start 11/28/17 at 21:00 Insulin Human Lispro (HumaLOG) 6 units 1X ONCE SQ Last administered on 20:52; Start 11/28/17 at 20:45; Stop 11/28/17 at 20:46; Status DC Non-Formulary Medication 1 ea BID SQ Last administered on 12/03/17 09:53; Start 11/28/17 at 23:00 Pneumococcal Polyvalent Vaccine (Do NOT chart on this placeholder) 1 each 1X ONCE MC ; Start 11/29/17 at 00:00; Stop 11/29/17 at 00:01; Status UNV Pneumococcal Polyvalent Vaccine (Pneumovax 23) 0.5 ml ONCE ONCE VAX IM Last administered on 11/29/17 18:20; Start 11/29/17 at 10:30; Stop 11/29/17 at 10:31; Status DC Lidocaine HCl (Xylocaine 2% Topical 5gm Tube) 1 karsten PRN Q6HRS PRN TP pain Last administered on 11/29/17 20:22; Start 11/29/17 at 13:30; Stop 11/30/17 at 12:59; Status DC Fenofibrate (Lofibra) 54 mg DAILY PO ; Start 11/29/17 at 14:00; Stop 11/29/17 at 14:00; Status DC Atorvastatin Calcium (Lipitor) 20 mg HS PO Last administered on 12/02/17at 21:06 ; Start 11/29/17 at 21:00 Carvedilol (Coreg) 3.125 mg BIDWMEALS PO Last administered on 11/30/17 08:08; Start 11/29/17 at 17:00; Stop 11/30/17 at 11:19; Status DC Lisinopril (Prinivil) 2.5 mg DAILY PO Last administered on 12/03/17at 09:48; Start 11/29/17 at 14:00 Alprazolam (Xanax) 0.5 mg PRN Q8HRS PRN PO ANXIETY / AGITATION Last administered on 12/02/17 05:51; Start 11/30/17 at 00:15 Throat Lozenges (Cepacol Sore Throat Lozenge) 1 stuart PRN Q2HRS PRN PO SORE THROAT Last administered on 11/30/17at 16:14; Start 11/30/17 at 00:15 Alprazolam (Xanax) 0.5 mg 1X ONCE PO Last administered on 11/30/17 05:14; Start 11/30/17 at 05:15; Stop 11/30/17 at 05:17; Status DC Carvedilol (Coreg) 6.25 mg BIDWMEALS PO Last administered on 12/03/17 09:45; Start 11/30/17 at 17:00 Carvedilol (Coreg) 3.125 mg 1X ONCE PO Last administered on 11/30/17 12:19; Start 11/30/17 at 11:30; Stop 11/30/17 at 11:31; Status DC Lidocaine HCl (Xylocaine 2% Topical 5gm Tube) 1 karsten Q4HRS W/A TP Last administered on 12/03/17 13:24; Start 11/30/17 at 14:00 Morphine Sulfate (Morphine Sulfate) 4 mg PRN Q2HR PRN IV MODERATE TO SEVERE PAIN Last administered on 12/03/17at 10:29; Start 11/30/17 at 13:00 Sodium Bicarbonate (Sodium Bicarb Adult 8.4% Syr) 50 meq 1X ONCE IV Last administered on 11/30/17at 16:18; Start 11/30/17 at 16:00; Stop 11/30/17 at 16:04; Status DC Furosemide (Lasix) 20 mg 1X ONCE IVP Last administered on 11/30/17 16:44; Start 11/30/17 at 16:15; Stop 11/30/17 at 16:16; Status DC Furosemide (Lasix) 20 mg 1X ONCE IVP Last administered on 11/30/17at 18:38; Start 11/30/17 at 18:45; Stop 11/30/17 at 18:46; Status DC Budesonide (Pulmicort) 0.5 mg RTBID NEB Last administered on 12/03/17at 06:05; Start 12/02/17 at 20:00 Budesonide (Pulmicort) 0.5 mg 1X ONCE NEB ; Start 12/02/17 at 09:30; Stop 12/02 at 09:31; Status DC Methylprednisolone Sodium Succinate (SOLU-Medrol 40MG VIAL) 40 mg 1X ONCE IV Last administered on 12/02/17at 09:16; Start 12/02/17 at 09:30; Stop 12/02/17 at 09:31; Status DC Prednisone (Prednisone) 40 mg DAILY PO ; Start 12/03/17 at 09:00; Stop 12/03/17 at 09:00; Status DC Albuterol/ Ipratropium (Duoneb) 3 ml Q4HRS NEB Last administered on 12/03/17at 11:51; Start 12/02/17 at 12:00 Methylprednisolone Sodium Succinate (SOLU-Medrol 40MG VIAL) 40 mg Q8HRS IV Last administered on 12/03/17at 06:36; Start 12/02/17 at 14:00; Stop 12/03/17 at 09:08; Status DC Furosemide (Lasix) 20 mg 1X ONCE IVP Last administered on 12/02/17at 10:22; Start 12/02/17 at 09:30; Stop 12/02/17 at 09:31; Status DC Chlorphenir/ Hydrocodone Polistirex (Tussionex) 5 ml PRN Q12HR PRN PO COUGH; Start 12/02/17 at 21:45 Guaifenesin (Robitussin Dm) 10 ml PRN Q6HRS PRN PO COUGH Last administered on at 21:47; Start 12/02/17 at 21:45 Insulin Human Lispro (HumaLOG) 10 units TIDWMEALS SQ Last administered on at 12:28; Start 12/03/17 at 08:00 Insulin Human Lispro (HumaLOG) 15 units 1X ONCE SQ Last administered on at 22:03; Start 12/02/17 at 21:45; Stop 12/02/17 at 21:46; Status DC Methylprednisolone Sodium Succinate (SOLU-Medrol 40MG VIAL) 40 mg Q12HR IV ; Start 12/03/17 at 21:00 Active Scripts Active Eliquis (Apixaban) 5 Mg Tablet 5 Mg PO BID Reported Tresiba Flextouch U-200 (Insulin Degludec) 200 Unit/1 Ml Insuln.pen 75 Unit SQ BID Oxycodone Hcl 10 Mg Tablet 10 Tamsulosin Hcl 0.4 Mg Cap.er.24h 1 Cap PO DAILY Gabapentin 300 Mg Capsule 300 Mg PO TID Aspirin 325 Mg Tablet 1 Tab PO DAILY Prilosec Otc (Omeprazole Magnesium) 20 Mg Tablet.dr 1 Tab PO DAILY Cymbalta (Duloxetine Hcl) 60 Mg Capsule.dr 1 Cap PO DAILY Hydroxychloroquine Sulfate 200 Mg Tablet 1 Tab PO BID Finasteride 5 Mg Tablet 1 Tab PO DAILY Zoloft (Sertraline Hcl) 50 Mg Tablet 1 Tab PO DAILY Omeprazole 40 Mg Capsule.dr 1 Cap PO DAILY Metformin Hcl Er (Metformin Hcl) 1,000 Mg Tab.er.24 1,000 Mg PO DAILYWBKFT Cephalexin 500 Mg Capsule 2 Cap PO BID 10 Days Hydrocodone-Apap 7.5-325 (Hydrocodone Bit/Acetaminophen) 1 Each Tablet 1 Tab PO PRN Q6HRS PRN NITROGLYCERIN SubLingual (Nitroglycerin) 0.4 Mg Tab.subl 0.4 Mg SL PRN Q5MIN PRN Levemir (Insulin Detemir) 100 Unit/1 Ml Vial 50 Unit SQ BID Breo Ellipta 200-25 Mcg INH (Fluticasone/Vilanterol) 1 Each Blst.w.dev 2 Puff IH DAILY PRN Atorvastatin Calcium 20 Mg Tablet 20 Mg PO HS Gabapentin 300 Mg Capsule 300 Mg PO TID NEXT DOSE DUE AT 2 PM AND AT BEDTIME Carvedilol 3.125 Mg Tablet 1 Tab PO BID NEXT DOSE DUE WITH SUPPER TODAY Lisinopril 2.5 Mg Tablet 1 Tab PO DAILY NEXT DOSE DUE ON 11/05/14 Plavix (Clopidogrel Bisulfate) 75 Mg Tablet 1 Tab PO DAILY NEXT DOSE DUE ON 11/05/14 Tamsulosin Hcl 0.4 Mg Cap.er.24h 0.4 Mg PO HS MAY TAKE ANYTIME Prilosec (Omeprazole) 40 Mg Capsule. 40 Mg PO DAILY MAY TAKE ANY TIME Aspir 81 (Aspirin) 81 Mg Tablet. 81 Mg PO DAILY NEXT DOSE DUE ON 11/05/14 Vitals/I & O Vital Sign - Last 24 Hours 12/02/17 12/02/17 12/02/17 12/02/17 15:28 16:23 17:47 19:30 Temp 98.5 98.5 Pulse 92 92 Resp 22 B/P (MAP) 130/90 (103) 130/90 Pulse Ox 97 92 O2 Delivery Nasal Cannula Nasal Cannula Nasal Cannula O2 Flow Rate 6.0 6.0 6.0 12/02/17 12/02/17 12/02/17 12/02/17 19:38 19:48 19:55 20:00 Temp 97.5 97.5 Pulse 103 Resp 20 B/P (MAP) 154/78 (103) Pulse Ox 95 O2 Delivery Nasal Cannula Nasal Cannula Nasal Cannula Nasal Cannula O2 Flow Rate 6.0 6.0 6.0 7.0 12/02/17 12/03/17 12/03/17 12/03/17 23:40 03:50 06:07 06:08 Temp 97.4 97.4 97.4 97.4 Pulse 104 103 Resp 20 20 B/P (MAP) 126/75 (92) 119/85 (96) Pulse Ox 94 92 O2 Delivery Nasal Cannula Nasal Cannula Nasal Cannula Nasal Cannula O2 Flow Rate 6.0 6.0 6.0 6.0 12/03/17 12/03/17 12/03/17 12/03/17 07:00 07:53 09:45 09:48 Temp 97.5 97.5 Pulse 107 107 107 Resp 22 B/P (MAP) 121/85 (97) 121/85 121/85 Pulse Ox 91 91 O2 Delivery Nasal Cannula Nasal Cannula O2 Flow Rate 6.0 5.0 12/03/17 12/03/17 12/03/17 12/03/17 10:29 10:59 11:00 11:53 Temp 98.7 98.7 Pulse 112 Resp 20 20 22 B/P (MAP) 124/71 (88) Pulse Ox 91 97 92 97 O2 Delivery Nasal Cannula Nasal Cannula Nasal Cannula Nasal Cannula O2 Flow Rate 5.0 5.0 6.0 5.0 12/03/17 13:25 Resp 2 Pulse Ox 97 O2 Delivery Nasal Cannula O2 Flow Rate 5.0 Intake and Output 12/02/17 12/02/17 12/03/17 15:00 23:00 07:00 Intake Total 350 ml 700 ml Output Total 150 ml 1100 ml Balance 200 ml -400 ml MEENA GARCES MD Dec 03, 2017 14:36
[2017-12-03 15:00] VITALS: BP 117/70
[2017-12-03 19:35] VITALS: BP 117/69
[2017-12-03] MEDS: ATORVASTATIN CALCIUM 20 MG TABLET PO SCH (20:43)
[2017-12-03 23:40] VITALS: BP 131/84
[2017-12-04 03:25] VITALS: BP 104/77
[2017-12-04] MEDS: IPRATRPIUM/ALBUTEROL 0.5/2.5MG 3 ML NEBU. NEB SCH ×5 (04:00→15:41)
[2017-12-04] MEDS: ALBUTEROL SULFATE 2.5 MG/3 ML NEBU. NEB PRN (05:56)
[2017-12-04] MEDS: oxyCODONE/APAP 5/325 1 TAB TABLET PO PRN ×2 (06:02→14:27)
[2017-12-04] MEDS: LIDOCAINE 2% TOPICAL JELLY 5GM TUBE. TP SCH ×4 (06:03→18:07)
[2017-12-04 06:55] VITALS: BP 132/86
[2017-12-04] MEDS: BUDESONIDE 0.5 MG/2 ML NEBU. NEB SCH (07:34)
[2017-12-04] MEDS: DULoxetine HCL 30 MG CAPSULE.DR PO SCH (08:42)
[2017-12-04] MEDS: GABAPENTIN 300 MG CAPSULE. PO SCH ×2 (08:42→14:25)
[2017-12-04] MEDS: TAMSULOSIN 0.4 MG CAP.ER.24H. PO SCH (08:43)
[2017-12-04] MEDS: CARVEDILOL 6.25 MG TABLET. PO SCH ×2 (08:43→18:03)
[2017-12-04] MEDS: valACYclovir 500 MG TABLET. PO SCH ×3 (08:43→18:03)
[2017-12-04] MEDS: ASPIRIN 325 MG TABLET PO SCH (08:43)
[2017-12-04] MEDS: methylPREDNISolone SOD SUCC PF 40 MG/ML VIAL. IV SCH (08:44)
[2017-12-04] MEDS: LISINOPRIL 5 MG TABLET. PO SCH (08:44)
[2017-12-04] MEDS: PANTOPRAZOLE 40 MG TABLET.DR. PO SCH (08:44)
[2017-12-04] MEDS: TRIAMCINOLONE ACETONIDE 0.1% TOPICAL CREAM 15GM TUBE. TP SCH (08:44)
[2017-12-04] MEDS: [UNRECOGNIZED DRUG - REMARK] SQ SCH (08:55)
[2017-12-04] MEDS: INSULIN LISPRO 300 UNITS/3 ML INSULN.PEN. SQ SCH ×6 (08:56→18:06)
[2017-12-04] MEDS: MORPHINE SULFATE 2 MG/ML DISP.SYRIN. IV PRN (08:59)
[2017-12-04] MEDS: NYSTATIN TOPICAL POWDER 15GM BOTTLE. TP SCH (09:00)
--- NOTE | 2017-12-04 09:14 | PDOC ---
PROGRESS NOTES Chief Complaint Chief Complaint COPD, w acute bronchitis, acute pain, skin rash, shingles, VZV dizzy/ lightheaded, presyncope, H/O CAD WITH stents dm2 on insulin tobacco use disroder, HTN HLD GERD depression BPH marijuana use h/o stroke with mild rt side weakness groin aron dermatitis History of Present Illness History of Present Illness he is more calm, still having coughing "fits" pain better rest distress is much improved, more calm IV steroids, nebs, cont current discussed with PULM topical pain treatment may be able to DC soon Vitals Vitals Vital Signs Date Time Temp Pulse Resp B/P (MAP) Pulse Ox O2 Delivery O2 Flow Rate FiO2 12/04/17 08:59 95 Nasal Cannula 5.0 12/04/17 08:44 108 132/86 12/04/17 06:55 97.8 22 97.8 Physical Exam General: Alert, Oriented X3, Cooperative, No acute distress Heart: Normal S1, Normal S2, No murmurs Lungs: Crackles Abdomen: Normal bowel sounds, Soft Extremities: No edema Skin: Other Labs LABS Laboratory Tests Test 12/03/17 11:52 12/03/17 17:15 12/03/17 20:34 12/04/17 07:23 Glucose (Fingerstick) 322 mg/dL (70-99) 138 mg/dL (70-99) 282 mg/dL (70-99) 226 mg/dL (70-99) Assessment and Plan Assessmemt and Plan Problems Medical Problems: (1) COPD (chronic obstructive pulmonary disease) Status: Acute (2) Pre-syncope Status: Acute Ambulation Comments * gait unsteady. Pt unable to control anterior lean Other Information * Pt transferred on and off toilet with min assist using grabbar and into shower with min assist using brabbar. At end of session pt sitting on shower chair with PET SITTING present to assist with shower. Learning Preferences * One-on-One Instruction Problem List (body system elements) * Impaired fnctnl mobility * Blood Pressure * Balance * Pain Pt/caregiver agrees with plan of care/goals * Yes Patient condition at conclusion of therapy * RN/PET SITTING with patient Communicated Patient Care With (Name, Title) * Dania POE Goal 1 - Bed Mobility Assistance Required * Independent Goal 1 Assessment * Appropriate - Continue Goal 2 - Transfers Assistance Required * Independent Goal 2 - Transfer Type * Sit to Stand Goal 2 Assessment * Appropriate - Continue Goal 3 - Ambulation Assistance Required * Independent Goal 3 - Ambulation Distance * 100' Goal 3 - Ambulation Device * No Device Goal 3 Assessment * Appropriate - Continue Goal 4 - Stairs Assistance Required * Independent Goal 4 - Number of Stairs * 2-4 Goal 4 - Device on Stairs * Rail on Right * Rail on Left Goal 4 Assessment * Appropriate - Continue Treatment Plan * Therapeutic Exercise * Bed Mobility Training * Transfer training * Gait Training * Dynamic Balance Training Frequency of Treatment Expected * 7 visits/week Duration of Treatment Expected * 2 weeks Discharge Recommendations * Jail Unit Discharge Recommendation - DME * Front Wheeled Walker Discharge Recommendation Comments * ongoing equipment assessment Comment Review of Relevant I have reviewed the following items bud (where applicable) has been applied. Labs Laboratory Tests Test 12/02/17 10:29 12/02/17 11:33 12/02/17 15:19 12/02/17 17:48 Glucose (Fingerstick) 187 mg/dL (70-99) 253 mg/dL (70-99) 307 mg/dL (70-99) 290 mg/dL (70-99) Test 12/02/17 21:36 12/03/17 05:00 12/03/17 07:35 12/03/17 11:52 Glucose (Fingerstick) 330 mg/dL (70-99) 272 mg/dL (70-99) 322 mg/dL (70-99) Sodium Level 138 mmol/L (136-145) Potassium Level 3.8 mmol/L (3.5-5.1) Chloride Level 103 mmol/L (98-107) Carbon Dioxide Level 27 mmol/L (21-32) Anion Gap 8 (6-14) Blood Urea Nitrogen 35 mg/dL (8-26) Creatinine 1.1 mg/dL (0.7-1.3) Estimated GFR (Cockcroft-Gault) 67.4 Glucose Level 262 mg/dL (70-99) Calcium Level 9.4 mg/dL (8.5-10.1) Test 12/03/17 17:15 12/03/17 20:34 12/04/17 07:23 Glucose (Fingerstick) 138 mg/dL (70-99) 282 mg/dL (70-99) 226 mg/dL (70-99) Laboratory Tests Test 12/03/17 11:52 12/03/17 17:15 12/03/17 20:34 12/04/17 07:23 Glucose (Fingerstick) 322 mg/dL (70-99) 138 mg/dL (70-99) 282 mg/dL (70-99) 226 mg/dL (70-99) Microbiology 11/28/17 Blood Culture - Final, Complete NO GROWTH AFTER 5 DAYS Medications Current Medications Albuterol/ Ipratropium (Duoneb) 3 ml 1X ONCE NEB Last administered on at 10:01; Start 11/28/17 at 10:00; Stop 11/28/17 at 10:01; Status DC Lidocaine HCl (Lidocaine Pf 2% Vial) 5 ml 1X ONCE IJ ; Start 11/28/17 at 11:30; Stop 11/28/17 at 11:39; Status DC Sodium Chloride 1,000 ml @ 1,000 mls/hr 1X ONCE IV Last administered on at 11:51; Start 11/28/17 at 11:30; Stop 11/28/17 at 12:29; Status DC Iohexol (Omnipaque 300 Mg/ml) 75 ml 1X ONCE IV Last administered on 11/28/17at 12:00; Start 11/28/17 at 11:45; Stop 11/28/17 at 11:46; Status DC Info (CONTRAST GIVEN -- Rx MONITORING) 1 each PRN DAILY PRN MC SEE COMMENTS; Start 11/28/17 at 11:45; Stop 11/30/17 at 11:44; Status DC Albuterol/ Ipratropium (Duoneb) 3 ml 1X ONCE NEB Last administered on at 13:48; Start 11/28/17 at 13:00; Stop 11/28/17 at 13:01; Status DC Ondansetron HCl (Zofran) 4 mg PRN Q8HRS PRN IV NAUSEA/VOMITING; Start 11/28/17 at 13:00; Stop 11/28/17 at 13:52; Status DC Morphine Sulfate (Morphine Sulfate) 2 mg PRN Q2HR PRN IV PAIN; Start 11/28/17 at 13:00; Stop 11/28/17 at 13:51; Status DC Acetaminophen (Tylenol) 650 mg PRN Q4HRS PRN PO FEVER; Start 11/28/17 at 13:00; Stop 11/28/17 at 13:51; Status DC Ceftriaxone Sodium 50 ml @ 100 mls/hr 1X ONCE IV Last administered on at 13:56; Start 11/28/17 at 14:00; Stop 11/28/17 at 14:29; Status DC Azithromycin 500 mg/Sodium Chloride 250 ml @ 250 mls/hr 1X ONCE IV Last administered on 11/28/17at 15:58; Start 11/28/17 at 14:30; Stop 11/28/17 at 15:29; Status DC Sodium Chloride 1,000 ml @ 1,000 mls/hr 1X ONCE IV Last administered on at 13:39; Start 11/28/17 at 13:45; Stop 11/28/17 at 14:44; Status DC Sodium Chloride 1,000 ml @ 1,000 mls/hr 1X ONCE IV Last administered on at 16:15; Start 11/28/17 at 13:45; Stop 11/28/17 at 14:44; Status DC Acetaminophen (Tylenol) 650 mg PRN Q6HRS PRN PO FEVER; Start 11/28/17 at 13:45 Ondansetron HCl (Zofran) 4 mg PRN Q6HRS PRN IV NAUSEA/VOMITING; Start 11/28/17 at 13:45 Morphine Sulfate (Morphine Sulfate) 2 mg PRN Q2HR PRN IV MODERATE TO SEVERE PAIN Last administered on 11/30/17at 04:43; Start 11/28/17 at 13:45; Stop 11/30/17 at 12:59; Status DC Tramadol HCl (Ultram) 50 mg PRN Q6HRS PRN PO MILD TO MODERATE PAIN Last administered on 11/29/17at 13:22; Start 11/28/17 at 13:45 Hydralazine HCl (Apresoline Inj) 10 mg PRN Q4HRS PRN IVP ELEVATED BP, SEE COMMENTS; Start 11/28/17 at 13:45 Docusate Sodium (Colace) 100 mg PRN DAILY PRN PO CONSTIPATION; Start 11/28/17 at 13:45 Albuterol/ Ipratropium (Duoneb) 3 ml RTQID NEB Last administered on 8/11/18at 08:42; Start 11/28/17 at 16:00; Stop 12/02/17 at 09:10; Status DC Albuterol Sulfate (Ventolin Neb Soln) 2.5 mg PRN Q2HR PRN NEB SHORTNESS OF BREATH Last administered on 12/04/17 05:56; Start 11/28/17 at 13:45 Guaifenesin (Mucinex) 600 mg BID PO Last administered on 12/04/17 08:43; Start 11/28/17 at 14:30 Triamcinolone Acetonide (Kenalog) 1 karsten BID TP Last administered on 12/04/17 08:44; Start 11/28/17 at 21:00 Nystatin (Nystop) 1 karsten BID TP Last administered on 12/04/17 09:00; Start 11/28 at 21:00 Diphenhydramine HCl (Benadryl) 25 mg PRN Q6HRS PRN PO ITCHING Last administered on 11/29/17 23:11; Start 11/28/17 at 13:45 Insulin Human Lispro (HumaLOG) 0-9 UNITS TIDWMEALS SQ Last administered on 12/04 08:56; Start 11/28/17 at 17:00 Dextrose (Dextrose 50%-Water Syringe) 12.5 gm PRN Q15MIN PRN IV SEE COMMENTS; Start 11/28/17 at 13:45 Oxycodone/ Acetaminophen (Percocet 5/325) 1 tab PRN Q6HRS PRN PO SEVERE PAIN Last administered on 12/04/17 06:02; Start 11/28/17 at 17:00 Tamsulosin HCl (Flomax) 0.4 mg DAILY PO Last administered on 12/04/17 08:43; Start 11/28/17 at 18:00 Aspirin (Jorge Luis Aspirin) 325 mg DAILY PO Last administered on 12/04/17 08:43; Start 11/28/17 at 18:00 Duloxetine HCl (Cymbalta) 60 mg DAILY PO Last administered on 12/04/17 08:42; Start 11/28/17 at 18:00 Gabapentin (Neurontin) 300 mg TID PO Last administered on 12/04/17 08:42; Start 11/28/17 at 21:00 Pantoprazole Sodium (Protonix) 40 mg DAILYAC PO Last administered on 12/04/17 08:44; Start 11/28/17 at 18:00 Valacyclovir HCl (Valtrex) 1,000 mg TID PO Last administered on 12/04/17 08:43 ; Start 11/28/17 at 21:00 Insulin Human Lispro (HumaLOG) 6 units 1X ONCE SQ Last administered on 20:52; Start 11/28/17 at 20:45; Stop 11/28/17 at 20:46; Status DC Non-Formulary Medication 1 ea BID SQ Last administered on 12/04/17 08:55; Start 11/28/17 at 23:00 Pneumococcal Polyvalent Vaccine (Do NOT chart on this placeholder) 1 each 1X ONCE MC ; Start 11/29/17 at 00:00; Stop 11/29/17 at 00:01; Status UNV Pneumococcal Polyvalent Vaccine (Pneumovax 23) 0.5 ml ONCE ONCE VAX IM Last administered on 11/29/17at 18:20; Start 11/29/17 at 10:30; Stop 11/29/17 at 10:31; Status DC Lidocaine HCl (Xylocaine 2% Topical 5gm Tube) 1 karsten PRN Q6HRS PRN TP pain Last administered on 11/29/17at 20:22; Start 11/29/17 at 13:30; Stop 11/30/17 at 12:59; Status DC Fenofibrate (Lofibra) 54 mg DAILY PO ; Start 11/29/17 at 14:00; Stop 11/29/17 at 14:00; Status DC Atorvastatin Calcium (Lipitor) 20 mg HS PO Last administered on 12/03/17at 20:43 ; Start 11/29/17 at 21:00 Carvedilol (Coreg) 3.125 mg BIDWMEALS PO Last administered on 11/30/17 08:08; Start 11/29/17 at 17:00; Stop 11/30/17 at 11:19; Status DC Lisinopril (Prinivil) 2.5 mg DAILY PO Last administered on 12/04/17at 08:44; Start 11/29/17 at 14:00 Alprazolam (Xanax) 0.5 mg PRN Q8HRS PRN PO ANXIETY / AGITATION Last administered on 12/02/17 05:51; Start 11/30/17 at 00:15 Throat Lozenges (Cepacol Sore Throat Lozenge) 1 stuart PRN Q2HRS PRN PO SORE THROAT Last administered on 11/30/17 16:14; Start 11/30/17 at 00:15 Alprazolam (Xanax) 0.5 mg 1X ONCE PO Last administered on 11/30/17 05:14; Start 11/30/17 at 05:15; Stop 11/30/17 at 05:17; Status DC Carvedilol (Coreg) 6.25 mg BIDWMEALS PO Last administered on 12/04/17 08:43; Start 11/30/17 at 17:00 Carvedilol (Coreg) 3.125 mg 1X ONCE PO Last administered on 11/30/17 12:19; Start 11/30/17 at 11:30; Stop 11/30/17 at 11:31; Status DC Lidocaine HCl (Xylocaine 2% Topical 5gm Tube) 1 karsten Q4HRS W/A TP Last administered on 12/04/17 06:03; Start 11/30/17 at 14:00 Morphine Sulfate (Morphine Sulfate) 4 mg PRN Q2HR PRN IV MODERATE TO SEVERE PAIN Last administered on 12/04/17 08:59; Start 11/30/17 at 13:00 Sodium Bicarbonate (Sodium Bicarb Adult 8.4% Syr) 50 meq 1X ONCE IV Last administered on 11/30/17 16:18; Start 11/30/17 at 16:00; Stop 11/30/17 at 16:04; Status DC Furosemide (Lasix) 20 mg 1X ONCE IVP Last administered on 11/30/17 16:44; Start 11/30/17 at 16:15; Stop 11/30/17 at 16:16; Status DC Furosemide (Lasix) 20 mg 1X ONCE IVP Last administered on 11/30/17 18:38; Start 11/30/17 at 18:45; Stop 11/30/17 at 18:46; Status DC Budesonide (Pulmicort) 0.5 mg RTBID NEB Last administered on 12/04/17 07:34; Start 12/02/17 at 20:00 Budesonide (Pulmicort) 0.5 mg 1X ONCE NEB ; Start 12/02/17 at 09:30; Stop 12/02 at 09:31; Status DC Methylprednisolone Sodium Succinate (SOLU-Medrol 40MG VIAL) 40 mg 1X ONCE IV Last administered on 12/02/17at 09:16; Start 12/02/17 at 09:30; Stop 12/02/17 at 09:31; Status DC Prednisone (Prednisone) 40 mg DAILY PO ; Start 12/03/17 at 09:00; Stop 12/03/17 at 09:00; Status DC Albuterol/ Ipratropium (Duoneb) 3 ml Q4HRS NEB Last administered on 12/04/17at 07:34; Start 12/02/17 at 12:00 Methylprednisolone Sodium Succinate (SOLU-Medrol 40MG VIAL) 40 mg Q8HRS IV Last administered on 12/03/17at 06:36; Start 12/02/17 at 14:00; Stop 12/03/17 at 09:08; Status DC Furosemide (Lasix) 20 mg 1X ONCE IVP Last administered on 12/02/17at 10:22; Start 12/02/17 at 09:30; Stop 12/02/17 at 09:31; Status DC Chlorphenir/ Hydrocodone Polistirex (Tussionex) 5 ml PRN Q12HR PRN PO COUGH ( 2nd Choice); Start 12/02/17 at 21:45 Guaifenesin (Robitussin Dm) 10 ml PRN Q6HRS PRN PO COUGH (1st Choice) Last administered on 12/02/17at 21:47; Start 12/02/17 at 21:45 Insulin Human Lispro (HumaLOG) 10 units TIDWMEALS SQ Last administered on at 08:56; Start 12/03/17 at 08:00 Insulin Human Lispro (HumaLOG) 15 units 1X ONCE SQ Last administered on at 22:03; Start 12/02/17 at 21:45; Stop 12/02/17 at 21:46; Status DC Methylprednisolone Sodium Succinate (SOLU-Medrol 40MG VIAL) 40 mg Q12HR IV Last administered on 12/04/17at 08:44; Start 12/03/17 at 21:00 Active Scripts Active Eliquis (Apixaban) 5 Mg Tablet 5 Mg PO BID Reported Tresiba Flextouch U-200 (Insulin Degludec) 200 Unit/1 Ml Insuln.pen 75 Unit SQ BID Oxycodone Hcl 10 Mg Tablet 10 Tamsulosin Hcl 0.4 Mg Cap.er.24h 1 Cap PO DAILY Gabapentin 300 Mg Capsule 300 Mg PO TID Aspirin 325 Mg Tablet 1 Tab PO DAILY Prilosec Otc (Omeprazole Magnesium) 20 Mg Tablet.dr 1 Tab PO DAILY Cymbalta (Duloxetine Hcl) 60 Mg Capsule.dr 1 Cap PO DAILY Hydroxychloroquine Sulfate 200 Mg Tablet 1 Tab PO BID Finasteride 5 Mg Tablet 1 Tab PO DAILY Zoloft (Sertraline Hcl) 50 Mg Tablet 1 Tab PO DAILY Omeprazole 40 Mg Capsule.dr 1 Cap PO DAILY Metformin Hcl Er (Metformin Hcl) 1,000 Mg Tab.er.24 1,000 Mg PO DAILYWBKFT Cephalexin 500 Mg Capsule 2 Cap PO BID 10 Days Hydrocodone-Apap 7.5-325 (Hydrocodone Bit/Acetaminophen) 1 Each Tablet 1 Tab PO PRN Q6HRS PRN NITROGLYCERIN SubLingual (Nitroglycerin) 0.4 Mg Tab.subl 0.4 Mg SL PRN Q5MIN PRN Levemir (Insulin Detemir) 100 Unit/1 Ml Vial 50 Unit SQ BID Breo Ellipta 200-25 Mcg INH (Fluticasone/Vilanterol) 1 Each Blst.w.dev 2 Puff IH DAILY PRN Atorvastatin Calcium 20 Mg Tablet 20 Mg PO HS Gabapentin 300 Mg Capsule 300 Mg PO TID NEXT DOSE DUE AT 2 PM AND AT BEDTIME Carvedilol 3.125 Mg Tablet 1 Tab PO BID NEXT DOSE DUE WITH SUPPER TODAY Lisinopril 2.5 Mg Tablet 1 Tab PO DAILY NEXT DOSE DUE ON 11/05/14 Plavix (Clopidogrel Bisulfate) 75 Mg Tablet 1 Tab PO DAILY NEXT DOSE DUE ON 11/05/14 Tamsulosin Hcl 0.4 Mg Cap.er.24h 0.4 Mg PO HS MAY TAKE ANYTIME Prilosec (Omeprazole) 40 Mg Capsule. 40 Mg PO DAILY MAY TAKE ANY TIME Aspir 81 (Aspirin) 81 Mg Tablet. 81 Mg PO DAILY NEXT DOSE DUE ON 11/05/14 Vitals/I & O Vital Sign - Last 24 Hours 8/04/1012/03/17 12/03/17 12/03/17 09:45 09:48 10:29 10:59 Pulse 107 107 Resp 20 20 B/P (MAP) 121/85 121/85 Pulse Ox 91 O2 Delivery Nasal Cannula O2 Flow Rate 5.0 12/03/17 12/03/17 12/03/17 12/03/17 11:00 11:53 13:25 14:25 Temp 98.7 98.7 Pulse 112 Resp 22 2 20 B/P (MAP) 124/71 (88) Pulse Ox 92 97 97 O2 Delivery Nasal Cannula Nasal Cannula Nasal Cannula O2 Flow Rate 6.0 5.0 5.0 12/03/17 12/03/17 12/03/17 12/03/17 15:00 16:18 17:51 17:53 Temp 97.6 97.6 Pulse 105 112 Resp 22 20 B/P (MAP) 117/70 (86) 124/71 Pulse Ox 95 95 O2 Delivery Nasal Cannula Nasal Cannula Nasal Cannula O2 Flow Rate 6.0 5.0 5.0 12/03/17 12/03/17 12/03/17 12/03/17 18:23 19:35 20:00 20:43 Temp 99.0 99.0 Pulse 105 Resp 20 B/P (MAP) 117/69 (85) Pulse Ox 92 92 92 O2 Delivery Nasal Cannula Room Air Nasal Cannula Nasal Cannula O2 Flow Rate 5.0 5.0 5.0 12/03/17 12/03/17 12/03/17 12/04/17 20:52 20:56 23:40 03:25 Temp 98.4 99.0 98.4 99.0 Pulse 104 110 Resp 16 16 B/P (MAP) 131/84 (100) 104/77 (86) Pulse Ox 95 94 O2 Delivery Nasal Cannula Nasal Cannula Room Air Room Air O2 Flow Rate 5.0 5.0 12/04/17 12/04/17 12/04/17 12/04/17 05:57 06:02 06:55 07:34 Temp 97.8 97.8 Pulse 108 Resp 22 B/P (MAP) 132/86 (101) Pulse Ox 94 95 95 O2 Delivery Nasal Cannula Nasal Cannula Room Air Room Air O2 Flow Rate 5.0 5.0 12/04/17 12/04/17 12/04/17 12/04/17 08:03 08:43 08:44 08:59 Pulse 108 108 B/P (MAP) 132/86 132/86 Pulse Ox 95 95 O2 Delivery Nasal Cannula Nasal Cannula O2 Flow Rate 5.0 5.0 Intake and Output 12/03/17 12/03/17 12/04/17 15:00 23:00 07:00 Intake Total 30 ml 600 ml Output Total 850 ml 450 ml Balance -850 ml -420 ml 600 ml MITCHELL NEW MD Dec 04, 2017 09:14
[2017-12-04 11:10] VITALS: BP 116/74
--- NOTE | 2017-12-04 13:26 | PDOC ---
PULMONARY PROGRESS NOTES Subjective sob is better, has cough, no pain Vitals Vital Signs Date Time Temp Pulse Resp B/P (MAP) Pulse Ox O2 Delivery O2 Flow Rate FiO2 12/04/17 11:35 96 Room Air 12/04/17 11:10 97.9 104 20 116/74 (88) 97.9 12/04/17 10:46 5.0 Comments ros as mentioned as above other sys otherwise neg General: Alert, No acute distress HEENT: Other (nc at perrl, nose throat clear) Lungs: Crackles Cardiovascular: S1, S2 Abdomen: Soft, Non-tender, Other (no mass) Neuro Exam: Alert, Oriented Extremities: Other (edems) Skin: Warm Labs Laboratory Tests Test 12/02/17 15:19 12/02/17 17:48 12/02/17 21:36 12/03/17 05:00 Glucose (Fingerstick) 307 mg/dL (70-99) 290 mg/dL (70-99) 330 mg/dL (70-99) Sodium Level 138 mmol/L (136-145) Potassium Level 3.8 mmol/L (3.5-5.1) Chloride Level 103 mmol/L (98-107) Carbon Dioxide Level 27 mmol/L (21-32) Anion Gap 8 (6-14) Blood Urea Nitrogen 35 mg/dL (8-26) Creatinine 1.1 mg/dL (0.7-1.3) Estimated GFR (Cockcroft-Gault) 67.4 Glucose Level 262 mg/dL (70-99) Calcium Level 9.4 mg/dL (8.5-10.1) Test 12/03/17 07:35 12/03/17 11:52 12/03/17 17:15 12/03/17 20:34 Glucose (Fingerstick) 272 mg/dL (70-99) 322 mg/dL (70-99) 138 mg/dL (70-99) 282 mg/dL (70-99) Test 12/04/17 07:23 12/04/17 10:46 Glucose (Fingerstick) 226 mg/dL (70-99) 273 mg/dL (70-99) Laboratory Tests Test 12/03/17 17:15 12/03/17 20:34 12/04/17 07:23 12/04/17 10:46 Glucose (Fingerstick) 138 mg/dL (70-99) 282 mg/dL (70-99) 226 mg/dL (70-99) 273 mg/dL (70-99) Medications Active Scripts Medications Dose Route/Sig Max Daily Dose Days Date Category Dose Instructions Tresiba Flextouch U-200 (Insulin Degludec) 200 Unit/1 Ml Insuln.pen 75 Unit SQ BID 11/28/17 Reported Oxycodone Hcl 10 Mg Tablet 10 11/28/17 Reported Tamsulosin Hcl 0.4 Mg Cap.er.24h 1 Cap PO DAILY 11/28/17 Reported Gabapentin 300 Mg Capsule 300 Mg PO TID 11/28/17 Reported Aspirin 325 Mg Tablet 1 Tab PO DAILY 11/28/17 Reported Prilosec Otc (Omeprazole Magnesium) 20 Mg Tablet.dr 1 Tab PO DAILY 11/28/17 Reported Cymbalta (Duloxetine Hcl) 60 Mg Capsule.dr 1 Cap PO DAILY 11/28/17 Reported Eliquis (Apixaban) 5 Mg Tablet 5 Mg PO BID 10/08/16 Rx Hydroxychloroquine Sulfate 200 Mg Tablet 1 Tab PO BID 10/07/16 Reported Finasteride 5 Mg Tablet 1 Tab PO DAILY 10/07/16 Reported Zoloft (Sertraline Hcl) 50 Mg Tablet 1 Tab PO DAILY 10/07/16 Reported Omeprazole 40 Mg Capsule.dr 1 Cap PO DAILY 10/07/16 Reported Metformin Hcl Er (Metformin Hcl) 1,000 Mg Tab.er.24 1,000 Mg PO DAILYWBKFT 10/07/16 Reported Cephalexin 500 Mg Capsule 2 Cap PO BID 10 10/07/16 Reported Hydrocodone-Apap 7.5-325 (Hydrocodone Bit/Acetaminophen) 1 Each Tablet 1 Tab PO PRN Q6HRS PRN 10/07/16 Reported NITROGLYCERIN SubLingual (Nitroglycerin) 0.4 Mg Tab.subl 0.4 Mg SL PRN Q5MIN PRN 10/07/16 Reported Levemir (Insulin Detemir) 100 Unit/1 Ml Vial 50 Unit SQ BID 10/07/16 Reported Breo Ellipta 200-25 Mcg INH (Fluticasone/Vilanterol) 1 Each Blst.w.dev 2 Puff IH DAILY PRN 10/07/16 Reported Atorvastatin Calcium 20 Mg Tablet 20 Mg PO HS 12/17/14 Reported Gabapentin 300 Mg Capsule 300 Mg PO TID 11/03/14 Reported NEXT DOSE DUE AT 2 PM AND AT BEDTIME Carvedilol 3.125 Mg Tablet 1 Tab PO BID 09/25/14 Reported NEXT DOSE DUE WITH SUPPER TODAY Lisinopril 2.5 Mg Tablet 1 Tab PO DAILY 09/25/14 Reported NEXT DOSE DUE ON 11/05/14 Plavix (Clopidogrel Bisulfate) 75 Mg Tablet 1 Tab PO DAILY 09/25/14 Reported NEXT DOSE DUE ON 11/05/14 Tamsulosin Hcl 0.4 Mg Cap.er.24h 0.4 Mg PO HS 07/11/13 Reported MAY TAKE ANYTIME Prilosec (Omeprazole) 40 Mg Capsule.dr 40 Mg PO DAILY 07/11/13 Reported MAY TAKE ANY TIME Aspir 81 (Aspirin) 81 Mg Tablet.dr 81 Mg PO DAILY 07/11/13 Reported NEXT DOSE DUE ON 11/05/14 Comments reviewed, cxr 11/30, No acute cardiopulmonary abnormality Impression . 1. chronic obstructive pulmonary disease w ae. He has tobacco use all his life up to 3 packs per day and continues to smoke 1 pack per day. 2. Skin rash and also palpable lymph node on the neck. NOT SIG ON CT NECK/ REACTIVE 3. Underlying obesity, ? criselda. 4. History of coronary artery disease. 5. Syncopal episode. No evidence of any pulmonary embolism by CT angiogram. 6. acute resp fail Plan . 1. CLINICALLY BETTER, change to PO steroids/ Nebs 2. Smoking cessation counseling provided. advised to quit smoking for ever 3. ICS 4. protonix for stress ulcer prophylaxis 5. lovenox for dvt prophylaxis 6. PFTs as an outpatient. D/W RN pt dc plans per PCP KAY KNOX MD Dec 04, 2017 13:26
[2017-12-04 14:37] VITALS: BP 131/92
--- NOTE | 2017-12-04 16:31 | PDOC ---
PROGRESS NOTES Assessment Assessment IMPRESSION: Dizziness. Diabetic neuropathy. Shingles. COPD exacerbation. DM. HLD. Obesity. Pacemaker. Cannabinoids positive. RECOMMENDATIONS/PLAN: ASA 325 mg daily. Repeat HCT or CTA if symptoms recur. Treat medical diseases. OT/PT Discussed with his family at bedside. FU with Dr. Carlson in [facility]. FU with PCP. Subjective: He stated on 12/04/17 that his symptoms of dizziness significantly improved. Past Medical History Cardiovascular: CAD, CHF, MD, Syncope (carotid artery hypersensitivity syndrome ), Hyperlipidemia Pulmonary: COPD CENTRAL NERVOUS SYSTEM: CVA, Peripheral neuropathy GI: GERD Heme/Onc: Other (splenomegaly) Psych: Depression Musculoskeletal: Osteoarthritis Rheumatologic: Rheumatoid arthritis Renal/: Benign prostatic enlarg. Endocrine: Diabetes Past Surgical History Pacemaker, Hernia Repair, Other (lumbar) Family History Cancer Social History , smokes a pack of cigarettes per day, infrequent alcohol, retired ALLERGY: NKDA MEDICATIONS: Refer to MAR REVIEW OF SYSTEMS: Constitutional: Obesity Head: No traumatic brain or head injury. Skin: No edema, or rash. Ear: No infection. Eyes: No vision loss, or diplopia. Nose: No bleeding or purulent discharges. Hearing: Hearing decreased.. Neck: No injury. Cardiac: HTN, HLD Pulmonary: No pneumonia, COPD. GI: No GI Ulcer, GI bleeding Urinary/genital: No dysuria, incontinence, urinary retention. Endocrine: Diabetes Mellitus, obesity. Skeletomuscular: No muscular atrophy, deformity. Neurological: see HP. Psychiatric: Denies drug use/abuse. Otherwise, not [id number] review of systems. PHYSICAL EXAMINATION: General appearance in no acute distress. HEENT: Normocephalic and nontraumatic. Eyes, nose, ears, and throat are unremarkable. Hearing decrease. Neck is supple. No lymphadenopathy. No bruits are heard over the carotid artery. No Crepitus. Cardiovascular: S1, S2, regular rate and rhythm. Pulmonary: Clear to auscultation bilaterally. Abdomen: Bowel sounds are positive. Abdomen is soft, nontender, and nondistended. Extremities: No rash, lesions, or edema. No restriction of range of motion NEUROLOGICAL EXAMINATION: Alert. Oriented to time, place and person. PERRL. EOMI. Bilateral but right > left horizontal nystagmus noted. CN: no focal findings. Muscle tone: within normal. Muscle strength: 5 DTR: 1 due to obesity. Plantar reflex: Flexor response bilaterally Gait: not examined in bed. Sensory exam: no abnormal findings. No cerebellar signs elicited. F-T-N test fine. Objective Objective Vital Signs Date Time Temp Pulse Resp B/P (MAP) Pulse Ox O2 Delivery O2 Flow Rate FiO2 12/04/17 15:41 94 Room Air 12/04/17 15:35 5.0 12/04/17 14:37 97.6 105 22 131/92 (105) 97.6 Intake and Output 12/04/17 07:00 Intake Total 630 ml Output Total 1300 ml Balance -670 ml Intake Oral 630 ml Output Urine Total 1300 ml # Voids 2 Vitals Signs Vitals VS - Last 72 Hours, by Label Date Time Temp Pulse Resp B/P (MAP) Pulse Ox O2 Delivery O2 Flow Rate FiO2 12/04/17 15:41 94 Room Air 12/04/17 15:35 94 Nasal Cannula 5.0 12/04/17 14:37 97.6 105 22 131/92 (105) 94 Room Air 97.6 12/04/17 14:27 96 Nasal Cannula 5.0 12/04/17 11:35 96 Room Air 12/04/17 11:10 97.9 104 20 116/74 (88) 92 Room Air 97.9 12/04/17 10:46 95 Nasal Cannula 5.0 12/04/17 08:59 95 Nasal Cannula 5.0 12/04/17 08:44 108 132/86 12/04/17 08:43 108 132/86 12/04/17 08:00 Nasal Cannula 4.0 12/04/17 07:34 95 Room Air 12/04/17 06:55 97.8 108 22 132/86 (101) 95 Room Air 97.8 12/04/17 06:02 94 Nasal Cannula 5.0 12/04/17 05:57 Nasal Cannula 5.0 12/04/17 03:25 99.0 110 16 104/77 (86) 94 Room Air 99.0 12/03/17 23:40 98.4 104 16 131/84 (100) 95 Room Air 98.4 12/03/17 20:56 Nasal Cannula 5.0 12/03/17 20:52 Nasal Cannula 5.0 12/03/17 20:43 92 Nasal Cannula 5.0 12/03/17 20:00 Nasal Cannula 5.0 12/03/17 19:35 99.0 105 20 117/69 (85) 92 Room Air 99.0 12/03/17 17:53 20 95 Nasal Cannula 5.0 12/03/17 17:51 112 124/71 12/03/17 16:18 Nasal Cannula 5.0 12/03/17 15:00 97.6 105 22 117/70 (86) 95 Nasal Cannula 6.0 97.6 12/03/17 14:25 20 12/03/17 13:25 2 97 Nasal Cannula 5.0 12/03/17 11:53 97 Nasal Cannula 5.0 12/03/17 11:00 98.7 112 22 124/71 (88) 92 Nasal Cannula 6.0 98.7 12/03/17 10:59 20 12/03/17 10:29 20 91 Nasal Cannula 5.0 12/03/17 09:48 107 121/85 12/03/17 09:45 107 121/85 12/03/17 08:00 Nasal Cannula 5.0 12/03/17 07:00 97.5 107 22 121/85 (97) 91 Nasal Cannula 6.0 97.5 Laboratory Laboratory Laboratory Tests Test 12/03/17 17:15 12/03/17 20:34 12/04/17 07:23 12/04/17 10:46 Glucose (Fingerstick) 138 mg/dL (70-99) 282 mg/dL (70-99) 226 mg/dL (70-99) 273 mg/dL (70-99) Microbiology 11/28/17 Blood Culture - Final, Complete NO GROWTH AFTER 5 DAYS Medication Medications Current Medications Methylprednisolone Sodium Succinate (SOLU-Medrol 40MG VIAL) 40 mg Q12HR IV Last administered on 12/04/17at 08:44; Start 12/03/17 at 21:00; Stop 12/04/17 at 13:27; Status DC Prednisone (Prednisone) 30 mg DAILY PO ; Start 12/05/17 at 09:00 Comment Review of Relevant I have reviewed the following items bud (where applicable) has been applied. SCHUYLER SUAREZ MD Dec 04, 2017 16:31
--- NOTE | 2017-12-04 17:36 | PDOC3 ---
Discharge Summary Date of Admission: Nov 28, 2017 Date of Discharge: Dec 04, 2017 Follow-Up: 3-5 days Admitting Diagnosis comment: DISCHARGE DIAGNOSIS Chief Complaint COPD, w acute bronchitis, HIGH FALL RISK WITHOUT SNF acute pain, skin rash, shingles, VZV dizzy/ lightheaded, presyncope, H/O CAD WITH stents dm2 on insulin tobacco use disroder, HTN HLD GERD depression BPH marijuana use h/o stroke with mild rt side weakness groin aron dermatitis History of Present Illness History of Present Illness he is more calm, still having coughing "fits" pain better rest distress is much improved, more calm IV steroids, nebs, cont current discussed with PULM topical pain treatment may be able to DC soon Vitals Vitals Vital Signs Date Time Temp Pulse Resp B/P (MAP) Pulse Ox O2 Delivery O2 Flow Rate FiO2 12/04/17 08:59 95 Nasal Cannula 5.0 12/04/17 08:44 108 132/86 12/04/17 06:55 97.8 22 97.8 Physical Exam General: Alert, Oriented X3, Cooperative, No acute distress Heart: Normal S1, Normal S2, No murmurs Lungs: Crackles Abdomen: Normal bowel sounds, Soft Extremities: No edema Skin: Other Labs LABS Laboratory Tests Test 12/03/17 11:52 12/03/17 17:15 12/03/17 20:34 12/04/17 07:23 Glucose (Fingerstick) 322 mg/dL (70-99) 138 mg/dL (70-99) 282 mg/dL (70-99) 226 mg/dL (70-99) Assessment and Plan Assessmemt and Plan Problems Medical Problems: (1) COPD (chronic obstructive pulmonary disease) Status: Acute (2) Pre-syncope Status: Acute Ambulation Comments * gait unsteady. Pt unable to control anterior lean Other Information * Pt transferred on and off toilet with min assist using grabbar and into shower with min assist using brabbar. At end of session pt sitting on shower chair with CONE TRUCKER present to assist with shower. Learning Preferences * One-on-One Instruction Problem List (body system elements) * Impaired fnctnl mobility * Blood Pressure * Balance * Pain Pt/caregiver agrees with plan of care/goals * Yes Patient condition at conclusion of therapy * RN/CONE TRUCKER with patient Communicated Patient Care With (Name, Title) * Dania RN Goal 1 - Bed Mobility Assistance Required * Independent Goal 1 Assessment * Appropriate - Continue Goal 2 - Transfers Assistance Required * Independent Goal 2 - Transfer Type * Sit to Stand Goal 2 Assessment * Appropriate - Continue Goal 3 - Ambulation Assistance Required * Independent Goal 3 - Ambulation Distance * 100' Goal 3 - Ambulation Device * No Device Goal 3 Assessment * Appropriate - Continue Goal 4 - Stairs Assistance Required * Independent Goal 4 - Number of Stairs * 2-4 Goal 4 - Device on Stairs * Rail on Right * Rail on Left Goal 4 Assessment * Appropriate - Continue Treatment Plan * Therapeutic Exercise * Bed Mobility Training * Transfer training * Gait Training * Dynamic Balance Training Frequency of Treatment Expected * 7 visits/week Duration of Treatment Expected * 2 weeks Discharge Recommendations * Group Home Unit Discharge Recommendation - DME * Front Wheeled Walker Discharge Recommendation Comments * ongoing equipment assessment Comment FINAL DIAGNOSIS Problems Medical Problems: (1) COPD (chronic obstructive pulmonary disease) Status: Acute (2) Pre-syncope Status: Acute Brief Hospital Course Mr. Whitt is a 62 old [sex] who presented with [ ] CONDITION AT DISCHARGE: Comment (POOR PROGNOSIS) Discharge Medications Current Medications Albuterol/ Ipratropium (Duoneb) 3 ml 1X ONCE NEB Last administered on at 10:01; Start 11/28/17 at 10:00; Stop 11/28/17 at 10:01; Status DC Lidocaine HCl (Lidocaine Pf 2% Vial) 5 ml 1X ONCE IJ ; Start 11/28/17 at 11:30; Stop 11/28/17 at 11:39; Status DC Sodium Chloride 1,000 ml @ 1,000 mls/hr 1X ONCE IV Last administered on at 11:51; Start 11/28/17 at 11:30; Stop 11/28/17 at 12:29; Status DC Iohexol (Omnipaque 300 Mg/ml) 75 ml 1X ONCE IV Last administered on 11/28/17at 12:00; Start 11/28/17 at 11:45; Stop 11/28/17 at 11:46; Status DC Info (CONTRAST GIVEN -- Rx MONITORING) 1 each PRN DAILY PRN MC SEE COMMENTS; Start 11/28/17 at 11:45; Stop 11/30/17 at 11:44; Status DC Albuterol/ Ipratropium (Duoneb) 3 ml 1X ONCE NEB Last administered on at 13:48; Start 11/28/17 at 13:00; Stop 11/28/17 at 13:01; Status DC Ondansetron HCl (Zofran) 4 mg PRN Q8HRS PRN IV NAUSEA/VOMITING; Start 11/28/17 at 13:00; Stop 11/28/17 at 13:52; Status DC Morphine Sulfate (Morphine Sulfate) 2 mg PRN Q2HR PRN IV PAIN; Start 11/28/17 at 13:00; Stop 11/28/17 at 13:51; Status DC Acetaminophen (Tylenol) 650 mg PRN Q4HRS PRN PO FEVER; Start 11/28/17 at 13:00; Stop 11/28/17 at 13:51; Status DC Ceftriaxone Sodium 50 ml @ 100 mls/hr 1X ONCE IV Last administered on at 13:56; Start 11/28/17 at 14:00; Stop 11/28/17 at 14:29; Status DC Azithromycin 500 mg/Sodium Chloride 250 ml @ 250 mls/hr 1X ONCE IV Last administered on 11/28/17at 15:58; Start 11/28/17 at 14:30; Stop 11/28/17 at 15:29; Status DC Sodium Chloride 1,000 ml @ 1,000 mls/hr 1X ONCE IV Last administered on at 13:39; Start 11/28/17 at 13:45; Stop 11/28/17 at 14:44; Status DC Sodium Chloride 1,000 ml @ 1,000 mls/hr 1X ONCE IV Last administered on at 16:15; Start 11/28/17 at 13:45; Stop 11/28/17 at 14:44; Status DC Acetaminophen (Tylenol) 650 mg PRN Q6HRS PRN PO FEVER; Start 11/28/17 at 13:45 Ondansetron HCl (Zofran) 4 mg PRN Q6HRS PRN IV NAUSEA/VOMITING; Start 11/28/17 at 13:45 Morphine Sulfate (Morphine Sulfate) 2 mg PRN Q2HR PRN IV MODERATE TO SEVERE PAIN Last administered on 11/30/17at 04:43; Start 11/28/17 at 13:45; Stop 11/30/17 at 12:59; Status DC Tramadol HCl (Ultram) 50 mg PRN Q6HRS PRN PO MILD TO MODERATE PAIN Last administered on 11/29/17 13:22; Start 11/28/17 at 13:45 Hydralazine HCl (Apresoline Inj) 10 mg PRN Q4HRS PRN IVP ELEVATED BP, SEE COMMENTS; Start 11/28/17 at 13:45 Docusate Sodium (Colace) 100 mg PRN DAILY PRN PO CONSTIPATION; Start 11/28/17 at 13:45 Albuterol/ Ipratropium (Duoneb) 3 ml RTQID NEB Last administered on 12/02/17 08:42; Start 11/28/17 at 16:00; Stop 12/02/17 at 09:10; Status DC Albuterol Sulfate (Ventolin Neb Soln) 2.5 mg PRN Q2HR PRN NEB SHORTNESS OF BREATH Last administered on 12/04/17at 05:56; Start 11/28/17 at 13:45 Guaifenesin (Mucinex) 600 mg BID PO Last administered on 12/04/17at 08:43; Start 11/28/17 at 14:30 Triamcinolone Acetonide (Kenalog) 1 karsten BID TP Last administered on 12/04/17 08:44; Start 11/28/17 at 21:00 Nystatin (Nystop) 1 karsten BID TP Last administered on 12/04/17 09:00; Start 11/28 at 21:00 Diphenhydramine HCl (Benadryl) 25 mg PRN Q6HRS PRN PO ITCHING Last administered on 11/29/17 23:11; Start 11/28/17 at 13:45 Insulin Human Lispro (HumaLOG) 0-9 UNITS TIDWMEALS SQ Last administered on 12/04 12:33; Start 11/28/17 at 17:00 Dextrose (Dextrose 50%-Water Syringe) 12.5 gm PRN Q15MIN PRN IV SEE COMMENTS; Start 11/28/17 at 13:45 Oxycodone/ Acetaminophen (Percocet 5/325) 1 tab PRN Q6HRS PRN PO SEVERE PAIN Last administered on 12/04/17 14:27; Start 11/28/17 at 17:00 Tamsulosin HCl (Flomax) 0.4 mg DAILY PO Last administered on 12/04/17 08:43; Start 11/28/17 at 18:00 Aspirin (Jorge Luis Aspirin) 325 mg DAILY PO Last administered on 12/04/17 08:43; Start 11/28/17 at 18:00 Duloxetine HCl (Cymbalta) 60 mg DAILY PO Last administered on 12/04/17 08:42; Start 11/28/17 at 18:00 Gabapentin (Neurontin) 300 mg TID PO Last administered on 12/04/17 14:25; Start 11/28/17 at 21:00 Pantoprazole Sodium (Protonix) 40 mg DAILYAC PO Last administered on 12/04/17 08:44; Start 11/28/17 at 18:00 Valacyclovir HCl (Valtrex) 1,000 mg TID PO Last administered on 12/04/17 14:25 ; Start 11/28/17 at 21:00 Insulin Human Lispro (HumaLOG) 6 units 1X ONCE SQ Last administered on 20:52; Start 11/28/17 at 20:45; Stop 11/28/17 at 20:46; Status DC Non-Formulary Medication 1 ea BID SQ Last administered on 12/04/17 08:55; Start 11/28/17 at 23:00 Pneumococcal Polyvalent Vaccine (Do NOT chart on this placeholder) 1 each 1X ONCE MC ; Start 11/29/17 at 00:00; Stop 11/29/17 at 00:01; Status UNV Pneumococcal Polyvalent Vaccine (Pneumovax 23) 0.5 ml ONCE ONCE VAX IM Last administered on 11/29/17 18:20; Start 11/29/17 at 10:30; Stop 11/29/17 at 10:31; Status DC Lidocaine HCl (Xylocaine 2% Topical 5gm Tube) 1 karsten PRN Q6HRS PRN TP pain Last administered on 11/29/17 20:22; Start 11/29/17 at 13:30; Stop 11/30/17 at 12:59; Status DC Fenofibrate (Lofibra) 54 mg DAILY PO ; Start 11/29/17 at 14:00; Stop 11/29/17 at 14:00; Status DC Atorvastatin Calcium (Lipitor) 20 mg HS PO Last administered on 12/03/17 20:43 ; Start 11/29/17 at 21:00 Carvedilol (Coreg) 3.125 mg BIDWMEALS PO Last administered on 11/30/17 08:08; Start 11/29/17 at 17:00; Stop 11/30/17 at 11:19; Status DC Lisinopril (Prinivil) 2.5 mg DAILY PO Last administered on 12/04/17 08:44; Start 11/29/17 at 14:00 Alprazolam (Xanax) 0.5 mg PRN Q8HRS PRN PO ANXIETY / AGITATION Last administered on 12/02/17 05:51; Start 11/30/17 at 00:15 Throat Lozenges (Cepacol Sore Throat Lozenge) 1 stuart PRN Q2HRS PRN PO SORE THROAT Last administered on 11/30/17 16:14; Start 11/30/17 at 00:15 Alprazolam (Xanax) 0.5 mg 1X ONCE PO Last administered on 11/30/17 05:14; Start 11/30/17 at 05:15; Stop 11/30/17 at 05:17; Status DC Carvedilol (Coreg) 6.25 mg BIDWMEALS PO Last administered on 12/04/17 08:43; Start 11/30/17 at 17:00 Carvedilol (Coreg) 3.125 mg 1X ONCE PO Last administered on 11/30/17 12:19; Start 11/30/17 at 11:30; Stop 11/30/17 at 11:31; Status DC Lidocaine HCl (Xylocaine 2% Topical 5gm Tube) 1 karsten Q4HRS W/A TP Last administered on 12/04/17 14:28; Start 11/30/17 at 14:00 Morphine Sulfate (Morphine Sulfate) 4 mg PRN Q2HR PRN IV MODERATE TO SEVERE PAIN Last administered on 12/04/17 08:59; Start 11/30/17 at 13:00 Sodium Bicarbonate (Sodium Bicarb Adult 8.4% Syr) 50 meq 1X ONCE IV Last administered on 11/30/17 16:18; Start 11/30/17 at 16:00; Stop 11/30/17 at 16:04; Status DC Furosemide (Lasix) 20 mg 1X ONCE IVP Last administered on 11/30/17at 16:44; Start 11/30/17 at 16:15; Stop 11/30/17 at 16:16; Status DC Furosemide (Lasix) 20 mg 1X ONCE IVP Last administered on 11/30/17at 18:38; Start 11/30/17 at 18:45; Stop 11/30/17 at 18:46; Status DC Budesonide (Pulmicort) 0.5 mg RTBID NEB Last administered on 12/04/17at 07:34; Start 12/02/17 at 20:00 Budesonide (Pulmicort) 0.5 mg 1X ONCE NEB ; Start 12/02/17 at 09:30; Stop 12/02 at 09:31; Status DC Methylprednisolone Sodium Succinate (SOLU-Medrol 40MG VIAL) 40 mg 1X ONCE IV Last administered on 12/02/17at 09:16; Start 12/02/17 at 09:30; Stop 12/02/17 at 09:31; Status DC Prednisone (Prednisone) 40 mg DAILY PO ; Start 12/03/17 at 09:00; Stop 12/03/17 at 09:00; Status DC Albuterol/ Ipratropium (Duoneb) 3 ml Q4HRS NEB Last administered on 12/04/17at 15:41; Start 12/02/17 at 12:00 Methylprednisolone Sodium Succinate (SOLU-Medrol 40MG VIAL) 40 mg Q8HRS IV Last administered on 12/03/17at 06:36; Start 12/02/17 at 14:00; Stop 12/03/17 at 09:08; Status DC Furosemide (Lasix) 20 mg 1X ONCE IVP Last administered on 12/02/17at 10:22; Start 12/02/17 at 09:30; Stop 12/02/17 at 09:31; Status DC Chlorphenir/ Hydrocodone Polistirex (Tussionex) 5 ml PRN Q12HR PRN PO COUGH ( 2nd Choice); Start 12/02/17 at 21:45 Guaifenesin (Robitussin Dm) 10 ml PRN Q6HRS PRN PO COUGH (1st Choice) Last administered on 12/02/17at 21:47; Start 12/02/17 at 21:45 Insulin Human Lispro (HumaLOG) 10 units TIDWMEALS SQ Last administered on at 12:34; Start 12/03/17 at 08:00 Insulin Human Lispro (HumaLOG) 15 units 1X ONCE SQ Last administered on at 22:03; Start 12/02/17 at 21:45; Stop 12/02/17 at 21:46; Status DC Methylprednisolone Sodium Succinate (SOLU-Medrol 40MG VIAL) 40 mg Q12HR IV Last administered on 12/04/17at 08:44; Start 12/03/17 at 21:00; Stop 12/04/17 at 13:27; Status DC Prednisone (Prednisone) 30 mg DAILY PO ; Start 12/05/17 at 09:00 Active Scripts Active Eliquis (Apixaban) 5 Mg Tablet 5 Mg PO BID Reported Tresiba Flextouch U-200 (Insulin Degludec) 200 Unit/1 Ml Insuln.pen 75 Unit SQ BID Oxycodone Hcl 10 Mg Tablet 10 Tamsulosin Hcl 0.4 Mg Cap.er.24h 1 Cap PO DAILY Gabapentin 300 Mg Capsule 300 Mg PO TID Aspirin 325 Mg Tablet 1 Tab PO DAILY Prilosec Otc (Omeprazole Magnesium) 20 Mg Tablet.dr 1 Tab PO DAILY Cymbalta (Duloxetine Hcl) 60 Mg Capsule.dr 1 Cap PO DAILY Hydroxychloroquine Sulfate 200 Mg Tablet 1 Tab PO BID Finasteride 5 Mg Tablet 1 Tab PO DAILY Zoloft (Sertraline Hcl) 50 Mg Tablet 1 Tab PO DAILY Omeprazole 40 Mg Capsule.dr 1 Cap PO DAILY Metformin Hcl Er (Metformin Hcl) 1,000 Mg Tab.er.24 1,000 Mg PO DAILYWBKFT Cephalexin 500 Mg Capsule 2 Cap PO BID 10 Days Hydrocodone-Apap 7.5-325 (Hydrocodone Bit/Acetaminophen) 1 Each Tablet 1 Tab PO PRN Q6HRS PRN NITROGLYCERIN SubLingual (Nitroglycerin) 0.4 Mg Tab.subl 0.4 Mg SL PRN Q5MIN PRN Levemir (Insulin Detemir) 100 Unit/1 Ml Vial 50 Unit SQ BID Breo Ellipta 200-25 Mcg INH (Fluticasone/Vilanterol) 1 Each Blst.w.dev 2 Puff IH DAILY PRN Atorvastatin Calcium 20 Mg Tablet 20 Mg PO HS Gabapentin 300 Mg Capsule 300 Mg PO TID NEXT DOSE DUE AT 2 PM AND AT BEDTIME Carvedilol 3.125 Mg Tablet 1 Tab PO BID NEXT DOSE DUE WITH SUPPER TODAY Lisinopril 2.5 Mg Tablet 1 Tab PO DAILY NEXT DOSE DUE ON 11/05/14 Plavix (Clopidogrel Bisulfate) 75 Mg Tablet 1 Tab PO DAILY NEXT DOSE DUE ON 11/05/14 Tamsulosin Hcl 0.4 Mg Cap.er.24h 0.4 Mg PO HS MAY TAKE ANYTIME Prilosec (Omeprazole) 40 Mg Capsule.dr 40 Mg PO DAILY MAY TAKE ANY TIME Aspir 81 (Aspirin) 81 Mg Tablet.dr 81 Mg PO DAILY NEXT DOSE DUE ON 11/05/14 Vital Signs Vital Signs Date Time Temp Pulse Resp B/P (MAP) Pulse Ox O2 Delivery O2 Flow Rate FiO2 12/04/17 15:41 94 Room Air 12/04/17 15:35 5.0 12/04/17 14:37 97.6 105 22 131/92 (105) 97.6 Labs Laboratory Tests Test 12/02/17 17:48 12/02/17 21:36 12/03/17 05:00 12/03/17 07:35 Glucose (Fingerstick) 290 mg/dL (70-99) 330 mg/dL (70-99) 272 mg/dL (70-99) Sodium Level 138 mmol/L (136-145) Potassium Level 3.8 mmol/L (3.5-5.1) Chloride Level 103 mmol/L (98-107) Carbon Dioxide Level 27 mmol/L (21-32) Anion Gap 8 (6-14) Blood Urea Nitrogen 35 mg/dL (8-26) Creatinine 1.1 mg/dL (0.7-1.3) Estimated GFR (Cockcroft-Gault) 67.4 Glucose Level 262 mg/dL (70-99) Calcium Level 9.4 mg/dL (8.5-10.1) Test 12/03/17 11:52 12/03/17 17:15 12/03/17 20:34 12/04/17 07:23 Glucose (Fingerstick) 322 mg/dL (70-99) 138 mg/dL (70-99) 282 mg/dL (70-99) 226 mg/dL (70-99) Test 12/04/17 10:46 Glucose (Fingerstick) 273 mg/dL (70-99) Laboratory Tests Test 12/03/17 20:34 12/04/17 07:23 12/04/17 10:46 Glucose (Fingerstick) 282 mg/dL (70-99) 226 mg/dL (70-99) 273 mg/dL (70-99) Allergies Allergies Coded Allergies Type Severity Reaction Last Updated Verified No Known Drug Allergies 01/29/15 No Disposition/Orders: D/C to Home, Other (LEFT AMA) Patient Instructions D/C PLAN 30 MIN MITCHELL NEW MD Dec 04, 2017 17:36
[2017-12-04 18:03] VITALS: BP 131/92
[2017-12-05] MEDS ORDERED: predniSONE 10 MG TABLET PO SCH (09:00)
== END 2017-12-04 19:00 | disposition home health service (06) | DRG 872 ==
LOC: ER 09:24 → 6 SOUTH 12:49
PROVIDERS: ADMIT Internal Medicine; ATTEND Internal Medicine
DX: A41.9 Sepsis, unspecified organism (principal); J44.1 Chronic obstructive pulmonary disease with (acute) exacerbation; I42.9 Cardiomyopathy, unspecified; J44.0 Chronic obstructive pulmonary disease with (acute) lower respiratory infection; B02.9 Zoster without complications; K21.9 Gastro-esophageal reflux disease without esophagitis; F32.9 Major depressive disorder, single episode, unspecified; E78.00 Pure hypercholesterolemia, unspecified; G89.29 Other chronic pain; I25.2 Old myocardial infarction; N40.0 Benign prostatic hyperplasia without lower urinary tract symptoms; F17.210 Nicotine dependence, cigarettes, uncomplicated; I25.10 Atherosclerotic heart disease of native coronary artery without angina pectoris; E78.5 Hyperlipidemia, unspecified; E11.40 Type 2 diabetes mellitus with diabetic neuropathy, unspecified; K74.60 Unspecified cirrhosis of liver; F12.10 Cannabis abuse, uncomplicated; B37.2 Candidiasis of skin and nail; M47.812 Spondylosis without myelopathy or radiculopathy, cervical region; I50.9 Heart failure, unspecified; I11.0 Hypertensive heart disease with heart failure; M19.90 Unspecified osteoarthritis, unspecified site; M06.9 Rheumatoid arthritis, unspecified; E66.9 Obesity, unspecified; J20.9 Acute bronchitis, unspecified; Z90.49 Acquired absence of other specified parts of digestive tract; Z86.73 Personal history of transient ischemic attack (TIA), and cerebral infarction without residual deficits; Z82.49 Family history of ischemic heart disease and other diseases of the circulatory system; Z95.5 Presence of coronary angioplasty implant and graft; Z95.0 Presence of cardiac pacemaker; Z79.4 Long term (current) use of insulin; Z68.31 Body mass index [BMI] 31.0-31.9, adult; Z79.82 Long term (current) use of aspirin
CPT/HCPCS: 36415; 36600; 70450; 70490; 71045; 71275; 80048; 80053; 80061; 80307; 81001; 82550; 82805; 82962; 83605; 83735; 83880; 84443; 84484; 85025; 85379; 85610; 87040; 87252; 90732; 93005; 93880; 94618; 94640; 94760; 96361; 96365; J0456; J0690; J1815; J2270; J2920; J7030; J7050; J7613; J7620; J7626; Q0163; Q9967; 97116; 97530; 97535; 99285-25; G0479

== ENCOUNTER 2017-12-27 07:59 | Inpatient (IN) | payer MEDICARE ==
[~2017-12-27] VITALS: Ht 185.4 cm; Wt 104.3 kg
[~2017-12-27 07:59] MED LIST changes: +ASPI325T8 PO; +DULO60CA6 PO; +INSU200I4 SQ; -METF10003 PO; +METF10007 PO; +OMEP20TA63 PO; +OXYC10TA
[2017-12-27] MEDS ORDERED: BENZONATATE 100 MG CAPSULE. PO ONE (08:30)
[2017-12-27] MEDS ORDERED: MORPHINE SULFATE 2 MG/ML VIAL. IV ONE (08:30)
[2017-12-27] MEDS ORDERED: ONDANSETRON PF 4 MG/2 ML VIAL. IV ONE (08:30)
[2017-12-27] MEDS ORDERED: methylPREDNISolone SOD SUCC PF 125 MG/2 ML VIAL. IV ONE (08:30)
[2017-12-27] MEDS ORDERED: IPRATRPIUM/ALBUTEROL 0.5/2.5MG 3 ML NEBU. NEB ONE ×2 (08:30→10:00)
--- NOTE | 2017-12-27 08:30 | PHYS DOC ---
Past Medical History Past Medical History: Asthma, COPD, Depression, Diabetes-Type II, GERD, High Cholesterol, NM, P.U.D., Stroke, Other Additional Past Medical Histor: chronic pain, ulcers, enlarged prostate Past Surgical History: Appendectomy, Cholecystectomy, Other Additional Past Surgical Histo: back, hernia Alcohol Use: None Drug Use: None Adult General Chief Complaint Chief Complaint: DYSPNEA/RESPIRATOY DISTRESS HPI HPI Patient is a 62 year old male with a history of CAD, CVA in 2006, NM in 2014 and COPD presents to the ED complaining of cough 3 days. States it started out as congestion and that has gone down into his chest. States he has been coughing up green stuff. States he has pain when he coughs. Associated symptoms include sore throat, rhinorrhea, subjective fever, and shortness of breath. Denies chest pain, dizziness, weakness, headache, lower leg swelling, vision changes, syncope. Review of Systems Review of Systems Constitutional: Complains of subjective fever. Denies chills [] Eyes: Denies change in visual acuity, redness, or eye pain [] HENT: Complains of congestion and sore throat. Respiratory: Complains of cough and shortness of breath. Cardiovascular: No additional information not addressed in HPI [] GI: Denies abdominal pain, nausea, vomiting, bloody stools or diarrhea [] : Denies dysuria or hematuria [] Musculoskeletal: Denies back pain or joint pain [] Integument: Denies rash or skin lesions [] Neurologic: Denies headache, focal weakness or sensory changes [] All other systems were reviewed and found to be within normal limits, except as documented in this note. Current Medications Current Medications Current Medications Medications (Trade) Dose Ordered Sig/Aretha Start Time Stop Time Status Last Admin Dose Admin Albuterol/ Ipratropium (Duoneb) 3 ml 1X ONCE 12/27/17 10:00 12/27/17 10:04 DC 12/27/17 10:10 3 ML Benzonatate (Tessalon Perle) 100 mg 1X ONCE 12/27/17 08:30 12/27/17 08:31 DC 12/27/17 08:40 100 MG Ketorolac Tromethamine (Toradol 30mg Vial) 15 mg 1X ONCE 12/27/17 10:00 12/27/17 10:04 DC 12/27/17 10:08 15 MG Levofloxacin/ Dextrose 150 ml @ 100 mls/hr 1X ONCE 12/27/17 10:00 12/27/17 11:29 DC 12/27/17 10:12 100 MLS/HR Methylprednisolone Sodium Succinate (SOLU-Medrol 125MG VIAL) 125 mg 1X ONCE 12/27/17 08:30 12/27/17 08:31 DC 12/27/17 08:52 125 MG Morphine Sulfate (Morphine Sulfate) 2 mg 1X ONCE 12/27/17 08:30 12/27/17 08:31 DC 12/27/17 08:55 2 MG Ondansetron HCl (Zofran) 4 mg 1X ONCE 12/27/17 08:30 12/27/17 08:31 DC 12/27/17 08:53 4 MG Sodium Chloride 1,000 ml @ 1,000 mls/hr 1X ONCE 12/27/17 10:00 12/27/17 10:59 DC 12/27/17 10:10 1,000 MLS/HR Allergies Allergies Allergies Coded Allergies Type Severity Reaction Last Updated Verified No Known Drug Allergies 12/27/17 No Physical Exam Physical Exam Constitutional: Well developed, well nourished, non-toxic appearance. [] HENT: Normocephalic, atraumatic, bilateral external ears normal, oropharynx moist, no oral exudates, mild pharyngeal erythema. nose normal. [] Eyes: PERRLA, EOMI, conjunctiva normal, no discharge. [] Neck: Normal range of motion, no tenderness, supple, no stridor. [] Cardiovascular:Heart rate regular rhythm, no murmur [] Lungs & Thorax: Bilateral breath sounds. Mild wheezing and coarse breath sounds bilaterally. Abdomen: Bowel sounds normal, soft, no tenderness, no masses, no pulsatile masses. [] Skin: Warm, dry, no erythema, no rash. [] Back: No tenderness, no CVA tenderness. [] Extremities: No tenderness, no cyanosis, no clubbing, ROM intact, no edema. [] Neurologic: Alert and oriented X 3, normal motor function, normal sensory function, no focal deficits noted. [] Psychologic: Affect normal, judgement normal, mood normal. [] Current Patient Data Vital Signs Vital Signs Date Time Temp Pulse Resp B/P (MAP) Pulse Ox O2 Delivery O2 Flow Rate FiO2 12/27/17 09:50 102 38 131/69 (89) 97 Room Air 12/27/17 08:15 98.1 98.1 Lab Values Laboratory Tests Test 12/27/17 08:55 White Blood Count 12.3 x10^3/uL (4.0-11.0) H Red Blood Count 5.18 x10^6/uL (4.30-5.70) Hemoglobin 16.1 g/dL (13.0-17.5) Hematocrit 47.0 % (39.0-53.0) Mean Corpuscular Volume 91 fL (79-100) Mean Corpuscular Hemoglobin 31 pg (25-35) Mean Corpuscular Hemoglobin Concent 34 g/dL (31-37) Red Cell Distribution Width 15.0 % (11.5-14.5) H Platelet Count 183 x10^3/uL (140-400) Neutrophils (%) (Auto) 74 % (31-73) H Lymphocytes (%) (Auto) 13 % (24-48) L Monocytes (%) (Auto) 11 % (0-9) H Eosinophils (%) (Auto) 2 % (0-3) Basophils (%) (Auto) 1 % (0-3) Neutrophils # (Auto) 9.2 x10^3uL (1.8-7.7) H Lymphocytes # (Auto) 1.6 x10^3/uL (1.0-4.8) Monocytes # (Auto) 1.3 x10^3/uL (0.0-1.1) H Eosinophils # (Auto) 0.3 x10^3/uL (0.0-0.7) Basophils # (Auto) 0.1 x10^3/uL (0.0-0.2) Prothrombin Time 12.7 SEC (11.7-14.0) Prothrombin Time INR 1.0 (0.8-1.1) PTT 31 SEC (24-38) Sodium Level 138 mmol/L (136-145) Potassium Level 4.2 mmol/L (3.5-5.1) Chloride Level 104 mmol/L (98-107) Carbon Dioxide Level 24 mmol/L (21-32) Anion Gap 10 (6-14) Blood Urea Nitrogen 21 mg/dL (8-26) Creatinine 1.1 mg/dL (0.7-1.3) Estimated GFR (Cockcroft-Gault) 67.4 BUN/Creatinine Ratio 19 (6-20) Glucose Level 148 mg/dL (70-99) H Lactic Acid Level 2.7 mmol/L (0.4-2.0) H Calcium Level 9.0 mg/dL (8.5-10.1) Total Bilirubin 0.6 mg/dL (0.2-1.0) Aspartate Amino Transferase (AST) 26 U/L (15-37) Alanine Aminotransferase (ALT) 33 U/L (16-63) Alkaline Phosphatase 129 U/L (46-116) H Troponin I Quantitative 0.031 ng/mL (0.000-0.055) Total Protein 7.3 g/dL (6.4-8.2) Albumin 3.9 g/dL (3.4-5.0) Albumin/Globulin Ratio 1.1 (1.0-1.7) Laboratory Tests 12/27/17 08:55 Laboratory Tests 12/27/17 08:55 Microbiology 12/27/17 Blood Culture - Preliminary, Resulted NO GROWTH AFTER 2 DAYS EKG EKG [] Radiology/Procedures Radiology/Procedures PROCEDURE: CHEST AP ONLY CHEST AP ONLY History: Shortness of air, cough Comparison: December 02, 2017 Findings: Single view of the chest is submitted. There is again dual lead left electronic cardiac device. Pericardial cardiac silhouette is stable. There is no new lobar infiltrate, pleural fluid, pneumothorax. Impression: 1. No acute radiographic abnormality is identified.[] Course & Med Decision Making Course & Med Decision Making Pertinent Labs and Imaging studies reviewed. (See chart for details) Patient given 2 duonebs in the ED. States he is feeling better. Will cover with antibiotics and admit. []Discussed case with hospitalist, Dr. Salomon. Agrees to admission and further management patient. Patient stable for admission. Staff Physician Addendum: I was working in the ER during the course of this patient's visit. I was available for consultation as needed, but I was not directly involved in the care of this patient. Dragon Disclaimer Dragon Disclaimer This electronic medical record was generated, in whole or in part, using a voice recognition dictation system. Departure Departure Impression: Primary Impression: COPD (chronic obstructive pulmonary disease) Disposition: ADMITTED INPATIENT Admitting Physician: Aime. Cunmei Condition: STABLE Referrals: STAN MOONEY MD (PCP) VALERIY FRNECH Dec 27, 2017 08:30 BINDU RAMIREZ MD Dec 29, 2017 21:00
--- NOTE | 2017-12-27 08:53 | RAD ---
CHEST AP ONLY History: Shortness of air, cough Comparison: December 02, 2017 Findings: Single view of the chest is submitted. There is again dual lead left electronic cardiac device. Pericardial cardiac silhouette is stable. There is no new lobar infiltrate, pleural fluid, pneumothorax. Impression: 1. No acute radiographic abnormality is identified. Electronically signed by: Cam Avery MD (12/27/2017 8:50 AM) [id number]
--- NOTE | 2017-12-27 09:04 | EKG ---
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
[2017-12-27 09:09] LABS: BASO # 0.1 x10^3/uL (0.0-0.2); BASO % 1 % (0-3); EOS # 0.3 x10^3/uL (0.0-0.7); EOS % 2 % (0-3); HEMOGLOBIN 16.1 g/dL (13.0-17.5); LYMPH # 1.6 x10^3/uL (1.0-4.8); LYMPH % 13 % (24-48); MEAN CORPUSCULAR HEMOGLOBIN 31 pg (25-35); MEAN CORPUSCULAR HGB CONC 34 g/dL (31-37); MEAN CORPUSCULAR VOLUME 91 fL (79-100); MONO # 1.3 x10^3/uL (0.0-1.1); MONO % 11 % (0-9); NEUT # 9.2 x10^3uL (1.8-7.7); NEUT % 74 % (31-73); PLATELET COUNT 183 x10^3/uL (140-400); RED BLOOD COUNT 5.18 x10^6/uL (4.30-5.70); WHITE BLOOD COUNT 12.3 x10^3/uL (4.0-11.0)
[2017-12-27 09:19] LABS: CREATININE 1.1 mg/dL (0.7-1.3); GFR 67.4; POTASSIUM 4.2 mmol/L (3.5-5.1)
[2017-12-27 09:23] LABS: PROTHROMBIN TIME PATIENT 12.7 SEC (11.7-14.0)
[2017-12-27 09:24] LABS: ALBUMIN 3.9 g/dL (3.4-5.0); ALBUMIN/GLOBULIN RATIO 1.1 (1.0-1.7); TOTAL BILIRUBIN 0.6 mg/dL (0.2-1.0); TOTAL PROTEIN 7.3 g/dL (6.4-8.2)
[2017-12-27] MEDS ORDERED: KETOROLAC 30 MG/ML VIAL. IV ONE (10:00)
[2017-12-27] MEDS ORDERED: IV NORMAL SALINE 1000ML BAG 1,000 ML IV ONE (10:00)
[2017-12-27] MEDS ORDERED: MORPHINE SULFATE 4 MG/ML VIAL. IV PRN (10:15)
[2017-12-27] MEDS ORDERED: ACETAMINOPHEN 325 MG TABLET. PO PRN ×2 (10:15→12:15)
[2017-12-27] MEDS ORDERED: ONDANSETRON PF 4 MG/2 ML VIAL. IV PRN ×2 (10:15→12:15)
--- NOTE | 2017-12-27 12:07 | PDOC1 ---
History and Physical Date of Admission Date of Admission 12/27/17 Identification/Chief Complaint Chief Complaint sob Source Source: Chart review, Patient History of Present Illness History of Present Illness HPI Patient is a 62 year old male with a history of CAD, CVA in 2005, VT in 2014 and COPD still smoking trying to quit, came to ER for sob x3ds. pt said started to cough 3ds ago, with clear sputum, sob is getting worse. no home o2. HAD SUbjective fever last night. . Associates symptoms include sore throat, rhinorrhea, subjective fever. Denies chest pain, dizziness, weakness, headache, lower leg swelling, vision changes, syncope. pt was here 1 month ago for dizzyness, still feels so, when standing, lightheaded. Past Medical History Cardiovascular: CAD, CHF, VT, Syncope, Hyperlipidemia Pulmonary: COPD CENTRAL NERVOUS SYSTEM: CVA, Periperal neuropathy GI: GERD Heme/Onc: Other Hepatobiliary: Cirrhosis Psych: Depression Rheumatologic: Rheumatoid arthritis Infectious disease: No pertinent hx Renal/: Benign prostatic enlarg. Endocrine: Diabetes Past Surgical History Past Surgical History: Pacemaker, Hernia Repair, Other Family History Family History: Hypertension Social History Smoke: <1 pack per day ALCOHOL: occassional Drugs: None Current Problem List Problem List Problems Medical Problems: (1) COPD (chronic obstructive pulmonary disease) Status: Acute Current Medications Current Medications Current Medications Medications (Trade) Dose Ordered Sig/Aretha Start Time Stop Time Status Last Admin Dose Admin Acetaminophen (Tylenol) 650 mg PRN Q4HRS PRN 12/27/17 10:15 12/28/17 10:14 Albuterol/ Ipratropium (Duoneb) 3 ml 1X ONCE 12/27/17 10:00 12/27/17 10:04 DC 12/27/17 10:10 3 ML Benzonatate (Tessalon Perle) 100 mg 1X ONCE 12/27/17 08:30 12/27/17 08:31 DC 12/27/17 08:40 100 MG Ketorolac Tromethamine (Toradol 30mg Vial) 15 mg 1X ONCE 12/27/17 10:00 12/27/17 10:04 DC 12/27/17 10:08 15 MG Levofloxacin/ Dextrose 150 ml @ 100 mls/hr 1X ONCE 12/27/17 10:00 12/27/17 11:29 DC 12/27/17 10:12 100 MLS/HR Methylprednisolone Sodium Succinate (SOLU-Medrol 125MG VIAL) 125 mg 1X ONCE 12/27/17 08:30 12/27/17 08:31 DC 12/27/17 08:52 125 MG Morphine Sulfate (Morphine Sulfate) 4 mg PRN Q2HR PRN 12/27/17 10:15 12/28/17 10:14 Ondansetron HCl (Zofran) 4 mg PRN Q8HRS PRN 12/27/17 10:15 12/28/17 10:14 Sodium Chloride 1,000 ml @ 1,000 mls/hr 1X ONCE 12/27/17 10:00 12/27/17 10:59 DC 12/27/17 10:10 1,000 MLS/HR Allergies Allergies Allergies Coded Allergies Type Severity Reaction Last Updated Verified No Known Drug Allergies 12/27/17 No ROS Review of System CONSTITUTIONAL: No fever or chills EYES: No recent changes SKIN: No rash or itching CARDIOVASCULAR: No chest pain, syncope, palpitations, or edema RESPIRATORY: No SOB or cough GASTROINTESTINAL: No nausea, vomiting or abdominal pain NEUROLOGICAL: No headaches or weakness ENDOCRINE: No cold or heat intolerance GENITOURINARY: No urgency or frequency of urination MUSCULOSKELETAL: No back pain or joint pain LYMPHATICS: No enlarged lymph nodes PSYCHIATRIC: No anxiety or depression Physical Exam Physical Exam GEN.: Alert and oriented. sob. HEENT: Head is normocephalic, atraumatic NECK: Supple. LUNGS: bl severe wheezing, some rhonchis. HEART: RRR, S1, S2 present. Peripheral pulses intact ABDOMEN: Soft, nontender. Positive bowel sounds. EXTREMITIES: Without any cyanosis. NEUROLOGIC: Normal speech, normal tone PSYCHIATRIC: Normal affect, normal mood. SKIN: No ulcerations Vitals Vitals Vital Signs Date Time Temp Pulse Resp B/P (MAP) Pulse Ox O2 Delivery O2 Flow Rate FiO2 12/27/17 11:18 97 36 127/73 (91) 96 Nasal Cannula 2.0 12/27/17 08:15 98.1 98.1 Labs Labs Laboratory Tests Test 12/27/17 08:55 White Blood Count 12.3 x10^3/uL (4.0-11.0) Red Blood Count 5.18 x10^6/uL (4.30-5.70) Hemoglobin 16.1 g/dL (13.0-17.5) Hematocrit 47.0 % (39.0-53.0) Mean Corpuscular Volume 91 fL (79-100) Mean Corpuscular Hemoglobin 31 pg (25-35) Mean Corpuscular Hemoglobin Concent 34 g/dL (31-37) Red Cell Distribution Width 15.0 % (11.5-14.5) Platelet Count 183 x10^3/uL (140-400) Neutrophils (%) (Auto) 74 % (31-73) Lymphocytes (%) (Auto) 13 % (24-48) Monocytes (%) (Auto) 11 % (0-9) Eosinophils (%) (Auto) 2 % (0-3) Basophils (%) (Auto) 1 % (0-3) Neutrophils # (Auto) 9.2 x10^3uL (1.8-7.7) Lymphocytes # (Auto) 1.6 x10^3/uL (1.0-4.8) Monocytes # (Auto) 1.3 x10^3/uL (0.0-1.1) Eosinophils # (Auto) 0.3 x10^3/uL (0.0-0.7) Basophils # (Auto) 0.1 x10^3/uL (0.0-0.2) Prothrombin Time 12.7 SEC (11.7-14.0) Prothromb Time International Ratio 1.0 (0.8-1.1) Activated Partial Thromboplast Time 31 SEC (24-38) Sodium Level 138 mmol/L (136-145) Potassium Level 4.2 mmol/L (3.5-5.1) Chloride Level 104 mmol/L (98-107) Carbon Dioxide Level 24 mmol/L (21-32) Anion Gap 10 (6-14) Blood Urea Nitrogen 21 mg/dL (8-26) Creatinine 1.1 mg/dL (0.7-1.3) Estimated GFR (Cockcroft-Gault) 67.4 BUN/Creatinine Ratio 19 (6-20) Glucose Level 148 mg/dL (70-99) Lactic Acid Level 2.7 mmol/L (0.4-2.0) Calcium Level 9.0 mg/dL (8.5-10.1) Total Bilirubin 0.6 mg/dL (0.2-1.0) Aspartate Amino Transf (AST/SGOT) 26 U/L (15-37) Alanine Aminotransferase (ALT/SGPT) 33 U/L (16-63) Alkaline Phosphatase 129 U/L (46-116) Troponin I Quantitative 0.031 ng/mL (0.000-0.055) Total Protein 7.3 g/dL (6.4-8.2) Albumin 3.9 g/dL (3.4-5.0) Albumin/Globulin Ratio 1.1 (1.0-1.7) Laboratory Tests Test 12/27/17 08:55 White Blood Count 12.3 x10^3/uL (4.0-11.0) Red Blood Count 5.18 x10^6/uL (4.30-5.70) Hemoglobin 16.1 g/dL (13.0-17.5) Hematocrit 47.0 % (39.0-53.0) Mean Corpuscular Volume 91 fL (79-100) Mean Corpuscular Hemoglobin 31 pg (25-35) Mean Corpuscular Hemoglobin Concent 34 g/dL (31-37) Red Cell Distribution Width 15.0 % (11.5-14.5) Platelet Count 183 x10^3/uL (140-400) Neutrophils (%) (Auto) 74 % (31-73) Lymphocytes (%) (Auto) 13 % (24-48) Monocytes (%) (Auto) 11 % (0-9) Eosinophils (%) (Auto) 2 % (0-3) Basophils (%) (Auto) 1 % (0-3) Neutrophils # (Auto) 9.2 x10^3uL (1.8-7.7) Lymphocytes # (Auto) 1.6 x10^3/uL (1.0-4.8) Monocytes # (Auto) 1.3 x10^3/uL (0.0-1.1) Eosinophils # (Auto) 0.3 x10^3/uL (0.0-0.7) Basophils # (Auto) 0.1 x10^3/uL (0.0-0.2) Prothrombin Time 12.7 SEC (11.7-14.0) Prothromb Time International Ratio 1.0 (0.8-1.1) Activated Partial Thromboplast Time 31 SEC (24-38) Sodium Level 138 mmol/L (136-145) Potassium Level 4.2 mmol/L (3.5-5.1) Chloride Level 104 mmol/L (98-107) Carbon Dioxide Level 24 mmol/L (21-32) Anion Gap 10 (6-14) Blood Urea Nitrogen 21 mg/dL (8-26) Creatinine 1.1 mg/dL (0.7-1.3) Estimated GFR (Cockcroft-Gault) 67.4 BUN/Creatinine Ratio 19 (6-20) Glucose Level 148 mg/dL (70-99) Lactic Acid Level 2.7 mmol/L (0.4-2.0) Calcium Level 9.0 mg/dL (8.5-10.1) Total Bilirubin 0.6 mg/dL (0.2-1.0) Aspartate Amino Transf (AST/SGOT) 26 U/L (15-37) Alanine Aminotransferase (ALT/SGPT) 33 U/L (16-63) Alkaline Phosphatase 129 U/L (46-116) Troponin I Quantitative 0.031 ng/mL (0.000-0.055) Total Protein 7.3 g/dL (6.4-8.2) Albumin 3.9 g/dL (3.4-5.0) Albumin/Globulin Ratio 1.1 (1.0-1.7) VTE Prophylaxis Ordered VTE Prophylaxis Devices: Yes VTE Pharmacological Prophylaxi: No Assessment/Plan Assessment/Plan acute hypoxic resp failure COPD exacerbation acute bronchitis, recurrent dizzy/ lightheaded H/O CAD WITH stents dm2 on insulin tobacco use disroder, HTN HLD GERD depression BPH marijuana use h/o stroke with mild rt side weakness groin aron dermatitis recent shingles PPM plan: pulm consult cont home meds, on eliquis, need to double check with pt add duoneb, solumedrol 125mg iv tid for now, albuterol prn cough meds cont levaquin daily check orthostatic bp check CTA head on lantus 75u bid, add ssi admit >2nights smoking education done JORDI CASTREJON MD Dec 27, 2017 12:06
[2017-12-27] MEDS ORDERED: NITROGLYCERIN SUBLINGUAL 0.4 MG BOTTLE OF 25. SL PRN (12:15)
[2017-12-27] MEDS ORDERED: DEXTROSE 50% 25 GM / 50ML DISP.SYRIN. IV PRN (12:15)
[2017-12-27] MEDS ORDERED: DOCUSATE SODIUM 100 MG CAPSULE. PO PRN (12:15)
[2017-12-27] MEDS ORDERED: LABETALOL 20 MG/4 ML DISP.SYRIN. IVP PRN (12:15)
[2017-12-27] MEDS ORDERED: VILANTEROL IH PRN (12:15)
[2017-12-27] MEDS ORDERED: FLUTICASONE IH PRN (12:15)
[2017-12-27] MEDS ORDERED: ALBUTEROL SULFATE 2.5 MG/3 ML NEBU. NEB PRN (12:15)
[2017-12-27] MEDS ORDERED: IOHEXOL 300 MG/ML 100ML VIAL. IV ONE (12:30)
[2017-12-27] MEDS ORDERED: ANTI-COAG MONITOR BY PHARMACY. MC PRN (12:30)
[2017-12-27] MEDS: INSULIN LISPRO 300 UNITS/3 ML INSULN.PEN. SQ SCH ×2 (12:30→18:20)
[2017-12-27] MEDS ORDERED: CONTRAST GIVEN. MC PRN (13:00)
[2017-12-27] MEDS ORDERED: FLUT1BLS2 INH (13:15)
[2017-12-27] MEDS ORDERED: OXYC10TA PO (13:15)
[2017-12-27 13:39] LABS: BASE EXCESS ABG -3 mmol/L (-3-3); HCO3 ABG 23 mmol/L (21-28); PCO2 ABG 45 mmHg (35-46); PO2 ABG 87 mmHg (65-108); SAT O2 ABG 96 % (92-99)
--- NOTE | 2017-12-27 14:26 | CONS ---
DATE OF CONSULTATION: ATTENDING PHYSICIAN: Dr. Salomon. REASON FOR CONSULTATION: Dyspnea. HISTORY OF PRESENT ILLNESS: The patient is a 62-year-old male who has history of COPD and continues to smoke cigarettes. He was last hospitalized in the first week of November. He also has history of CAD, CVA and PR in the past. The patient presented to the hospital with 3-day history of cough which has been nonproductive and at times productive of clear sputum. No fever, no chills. He had more dyspnea and wheezing. He is not on home oxygen. The patient's chest x-ray did not reveal any definite consolidation. He has been afebrile since in the hospital. He was placed on bronchodilators and also placed on Levaquin antibiotics. I have been asked to see him for further evaluation. PAST MEDICAL HISTORY: Significant for COPD with ongoing tobaccoism, CAD, CHF, PR, syncope, hyperlipidemia, CVA, peripheral neuropathy, GERD, BPH, RA and diabetes. PAST SURGICAL HISTORY: Pacemaker, hernia repair. FAMILY HISTORY: Hypertension. SOCIAL HISTORY: Smoker for at least 40 years, less than 1 pack per day. ALLERGIES: None. MEDICATIONS: All reviewed, as listed in the [facility]. FAMILY HISTORY: Noncontributory to lungs. REVIEW OF SYSTEMS: Twelve-point system obtained. Pertinent positives discussed in my history of present illness, otherwise noncontributory. All systems that were negative were reviewed as well. He denies any headache. No nausea, vomiting. No diarrhea, no dysuria, no dysphagia, no skin rash. No leg edema, no focal weakness. PHYSICAL EXAMINATION: VITAL SIGNS: Reviewed. Pulse ox is 96% on 2 liters, afebrile. HEENT: Sclerae nonicteric. NECK: Supple. LUNGS: With diminished breath sounds, no wheezing. CARDIOVASCULAR: Regular rate. ABDOMEN: Soft, obese. EXTREMITIES: With no pitting edema. LABORATORY DATA: Reviewed. White cell count 12.3, hemoglobin 16.6 and platelets are 183. ABGs with a pH of 7.33, pCO2 of 45 and a pO2 of 87 with a bicarbonate of 23. BUN 21, creatinine 1.1. IMPRESSION: 1. Acute exacerbation of chronic obstructive pulmonary disease in a patient with ongoing tobacco use since 40 years. 2. Acute hypoxic respiratory failure secondary to acute exacerbation of chronic obstructive pulmonary disease and acute bronchitis. 3. No definite consolidation seen on the chest x-ray. RECOMMENDATIONS: 1. Discussed with the patient and the the importance of tobacco cessation. 2. Continue present oxygen to keep saturation 92% and above. 3. Continue present bronchodilators. 4. Steroids with gradual taper. 5. Antibiotics. 6. Anticoagulation per PCP. 7. We will follow along with you. We will do PFTs as an outpatient. KAY KNOX MD DR: ITALIA/allison JOB#: [id number] / [id number]
[2017-12-27] MEDS: methylPREDNISolone SOD SUCC PF 125 MG/2 ML VIAL. IV SCH ×2 (14:45→21:36)
[2017-12-27 15:00] VITALS: BP 147/95
[2017-12-27] MEDS: IPRATRPIUM/ALBUTEROL 0.5/2.5MG 3 ML NEBU. NEB SCH ×2 (15:42→19:59)
--- NOTE | 2017-12-27 16:12 | RAD ---
CTA head and neck History: Dizziness Technique: After bolus of intravenous contrast, volumetric CT data acquisition was acquired of the head and neck. Multiplanar reconstruction images to include MIP and 3-D reconstruction images are submitted. Exposure: One or more of the following individualized dose reduction techniques were utilized for this examination: 1. Automated exposure control 2. Adjustment of the mA and/or kV according to patient size 3. Use of iterative reconstruction technique. Contrast: 75 cc Omnipaque 300 Comparison: November 28, [address] exam, no previous similar exam available Any determination of stenosis is based on NASCET criteria. CTA head: Findings: There is some motion degradation, also suboptimal contrast opacification of the arterial vascular structures. Both vertebral arteries constitute the basilar artery although very hypoplastic left intradural vertebral artery. There is visualization of bilateral picas and probably ectatic is although poorly distinguished. There is prominent right posterior communicating artery, not well-visualized on the left. There is aplastic right P1 segment. There is patent anterior communicating artery. There is atherosclerotic calcification carotid siphons bilaterally without significant stenosis. No significant intracranial stenosis or aneurysm is identified allowing for limitations of exam. There is right parietal developmental venous anomaly. There is patchy overall mild bilateral ethmoid air cell and right greater than left maxillary sinus mucosal thickening, also minimally of the sphenoid sinus posteriorly. The mastoid air cells are overall aerated. Impression: 1. No significant intracranial stenosis or aneurysm is identified allowing for limitations of exam. There is -type right posterior cerebral artery. Neck CTA: Findings: There is some noncalcified plaque of the more distal left common carotid artery with less than 50% luminal diameter reduction. There is a greater degree of calcified plaque of the proximal left internal carotid artery and medial aspect of the left carotid bulb without significant stenosis, approximate 50% luminal diameter reduction. There is medial deviation of the left cervical internal carotid artery in the neck, mild tortuosity more distally. There is also tortuosity of the right cervical internal carotid artery. There is minimal calcified plaque of the proximal right internal carotid artery without significant stenosis (less than 30% luminal diameter reduction). Evaluation of the proximal vertebral arteries is limited due to beam attenuation by the soft tissues and suboptimal contrast opacification. Right vertebral artery is diffusely dominant and primarily supplies the basilar artery. Left vertebral artery is diffusely small in caliber, proximally poorly evaluated and visualized. There is multilevel cervical degenerative disc disease and spondylosis greatest C3-4 to C6-7. There is likely central canal stenosis on the order of 6 mm such as C3-4 and C5-C6 and C6-7 and to a somewhat lesser degree at C4-5. There is multilevel cervical facet degenerative change, also uncovertebral degenerative change contributing to neural foramina compromise greatest on the left at C2-3, bilaterally at C3-4, and left greater than right at C5-6. There is grade 1 anterior spondylolisthesis at C7-T1. Impression: 1. Evaluation of vertebral arteries is limited on this exam especially more proximally. Right vertebral artery is dominant, primarily supplies basilar artery. Left vertebral artery is diffusely hypoplastic. 2. There is calcified plaque greatest of the left carotid bulb and proximal left internal carotid artery without significant stenosis. 3. There is multilevel cervical degenerative disc disease and spondylosis as well as multilevel cervical spinal stenosis. There is also multilevel neural foramina compromise due to facet and uncovertebral degenerative change. Electronically signed by: Cam Avery MD (12/27/2017 4:09 PM) [id number]
[2017-12-27] MEDS: TAMSULOSIN 0.4 MG CAP.ER.24H. PO SCH (16:13)
[2017-12-27] MEDS: DULoxetine HCL 30 MG CAPSULE.DR PO SCH (16:13)
[2017-12-27] MEDS: HYDROXYCHLOROQUINE 200 MG TABLET PO SCH ×2 (16:14→20:36)
[2017-12-27] MEDS: PANTOPRAZOLE 40 MG TABLET.DR. PO SCH (16:14)
[2017-12-27] MEDS: FINASTERIDE 5 MG TABLET. PO SCH (16:14)
[2017-12-27] MEDS: LISINOPRIL 5 MG TABLET. PO SCH (16:15)
[2017-12-27] MEDS: CLOPIDOGREL BISULFATE 75 MG TABLET PO SCH (16:15)
[2017-12-27] MEDS: GABAPENTIN 300 MG CAPSULE. PO SCH ×2 (16:15→20:36)
[2017-12-27] MEDS: traMADol 50 MG TABLET PO PRN (16:24)
[2017-12-27] MEDS ORDERED: VANCOMYCIN 2 GM in IV NORMAL SALINE 500ML BAG 500 ML IV ONE (17:00)
[2017-12-27] MEDS ORDERED: CEFEPIME HCL IV Push 1 GM VIAL. IVP SCH (17:00)
[2017-12-27] MEDS ORDERED: oxyCODONE IR 5 MG TABLET PO SCH (17:30)
[2017-12-27] MEDS: CEFEPIME HCL IV Push 1 GM VIAL. IVP SCH ×2 (18:14→21:36)
[2017-12-27] MEDS: VANCOMYCIN PER PHARMACY MC PRN (18:39)
[2017-12-27 19:00] VITALS: BP 114/75
[2017-12-27] MEDS: BUDESONIDE 0.5 MG/2 ML NEBU. NEB SCH (19:59)
[2017-12-27] MEDS: CARVEDILOL 3.125 MG TABLET. PO SCH (20:36)
[2017-12-27] MEDS: APIXABAN 5 MG TABLET. PO SCH (20:36)
[2017-12-27] MEDS: ATORVASTATIN CALCIUM 20 MG TABLET PO SCH (20:36)
[2017-12-27] MEDS: INSULIN GLARGINE 300 UNITS/3 ML INSULN.PEN. SQ SCH (20:39)
[2017-12-27] MEDS ORDERED: INSULIN LISPRO 300 UNITS/3 ML INSULN.PEN. SQ ONE (21:15)
[2017-12-27 22:31] VITALS: BP 119/79
[2017-12-28] VITALS (8 sets, daily range): BP systolic 107–134; BP diastolic 68–89
[2017-12-28] MEDS: oxyCODONE IR 5 MG TABLET PO PRN ×3 (02:49→18:08)
[2017-12-28] MEDS: VANCOMYCIN 1.5 GM in IV NORMAL SALINE 500ML BAG 500 ML IV SCH ×2 (05:35→18:09)
[2017-12-28] MEDS: methylPREDNISolone SOD SUCC PF 125 MG/2 ML VIAL. IV SCH ×3 (05:35→21:24)
[2017-12-28] MEDS: CEFEPIME HCL IV Push 1 GM VIAL. IVP SCH ×3 (05:35→21:28)
[2017-12-28 05:57] LABS: BASO % 0 % (0-3); EOS % 0 % (0-3); HEMOGLOBIN 14.9 g/dL (13.0-17.5); LYMPH # 0.5 x10^3/uL (1.0-4.8); LYMPH % 5 % (24-48); MEAN CORPUSCULAR HEMOGLOBIN 32 pg (25-35); MEAN CORPUSCULAR HGB CONC 35 g/dL (31-37); MEAN CORPUSCULAR VOLUME 91 fL (79-100); MONO # 0.3 x10^3/uL (0.0-1.1); MONO % 3 % (0-9); NEUT # 9.4 x10^3uL (1.8-7.7); NEUT % 92 % (31-73); PLATELET COUNT 163 x10^3/uL (140-400); RED BLOOD COUNT 4.71 x10^6/uL (4.30-5.70); WHITE BLOOD COUNT 10.3 x10^3/uL (4.0-11.0)
[2017-12-28 06:27] LABS: ALBUMIN 3.3 g/dL (3.4-5.0); ALBUMIN/GLOBULIN RATIO 0.8 (1.0-1.7); CALCIUM 8.8 mg/dL (8.5-10.1); GFR 75.2; POTASSIUM 4.5 mmol/L (3.5-5.1); TOTAL BILIRUBIN 0.5 mg/dL (0.2-1.0); TOTAL PROTEIN 7.5 g/dL (6.4-8.2)
[2017-12-28] MEDS: IPRATRPIUM/ALBUTEROL 0.5/2.5MG 3 ML NEBU. NEB SCH ×4 (07:18→19:44)
[2017-12-28] MEDS: BUDESONIDE 0.5 MG/2 ML NEBU. NEB SCH ×2 (07:18→19:44)
[2017-12-28] MEDS: PANTOPRAZOLE 40 MG TABLET.DR. PO SCH (07:46)
[2017-12-28] MEDS: CARVEDILOL 3.125 MG TABLET. PO SCH (08:00)
[2017-12-28] MEDS: HYDROXYCHLOROQUINE 200 MG TABLET PO SCH ×2 (08:32→21:19)
[2017-12-28] MEDS: TAMSULOSIN 0.4 MG CAP.ER.24H. PO SCH (08:33)
[2017-12-28] MEDS: DULoxetine HCL 30 MG CAPSULE.DR PO SCH (08:33)
[2017-12-28] MEDS: FINASTERIDE 5 MG TABLET. PO SCH (08:33)
[2017-12-28] MEDS: ASPIRIN 325 MG TABLET PO SCH (08:33)
[2017-12-28] MEDS: GABAPENTIN 300 MG CAPSULE. PO SCH ×3 (08:34→21:20)
[2017-12-28] MEDS: NICOTINE 21MG PATCH. TD PRN (08:35)
--- NOTE | 2017-12-28 08:36 | PDOC ---
Infectious Disease Note Vital Sign Vital Signs Vital Signs Date Time Temp Pulse Resp B/P (MAP) Pulse Ox O2 Delivery O2 Flow Rate FiO2 12/28/17 07:19 96 Nasal Cannula 2.0 12/28/17 03:00 97.8 109 22 134/87 (103) 97.8 Labs Lab Laboratory Tests Test 12/27/17 08:55 12/27/17 13:30 12/27/17 16:00 12/27/17 16:35 White Blood Count 12.3 x10^3/uL (4.0-11.0) Red Blood Count 5.18 x10^6/uL (4.30-5.70) Hemoglobin 16.1 g/dL (13.0-17.5) Hematocrit 47.0 % (39.0-53.0) Mean Corpuscular Volume 91 fL (79-100) Mean Corpuscular Hemoglobin 31 pg (25-35) Mean Corpuscular Hemoglobin Concent 34 g/dL (31-37) Red Cell Distribution Width 15.0 % (11.5-14.5) Platelet Count 183 x10^3/uL (140-400) Neutrophils (%) (Auto) 74 % (31-73) Lymphocytes (%) (Auto) 13 % (24-48) Monocytes (%) (Auto) 11 % (0-9) Eosinophils (%) (Auto) 2 % (0-3) Basophils (%) (Auto) 1 % (0-3) Neutrophils # (Auto) 9.2 x10^3uL (1.8-7.7) Lymphocytes # (Auto) 1.6 x10^3/uL (1.0-4.8) Monocytes # (Auto) 1.3 x10^3/uL (0.0-1.1) Eosinophils # (Auto) 0.3 x10^3/uL (0.0-0.7) Basophils # (Auto) 0.1 x10^3/uL (0.0-0.2) Prothrombin Time 12.7 SEC (11.7-14.0) Prothromb Time International Ratio 1.0 (0.8-1.1) Activated Partial Thromboplast Time 31 SEC (24-38) Sodium Level 138 mmol/L (136-145) Potassium Level 4.2 mmol/L (3.5-5.1) Chloride Level 104 mmol/L (98-107) Carbon Dioxide Level 24 mmol/L (21-32) Anion Gap 10 (6-14) Blood Urea Nitrogen 21 mg/dL (8-26) Creatinine 1.1 mg/dL (0.7-1.3) Estimated GFR (Cockcroft-Gault) 67.4 BUN/Creatinine Ratio 19 (6-20) Glucose Level 148 mg/dL (70-99) Lactic Acid Level 2.7 mmol/L (0.4-2.0) 1.6 mmol/L (0.4-2.0) Calcium Level 9.0 mg/dL (8.5-10.1) Total Bilirubin 0.6 mg/dL (0.2-1.0) Aspartate Amino Transf (AST/SGOT) 26 U/L (15-37) Alanine Aminotransferase (ALT/SGPT) 33 U/L (16-63) Alkaline Phosphatase 129 U/L (46-116) Troponin I Quantitative 0.031 ng/mL (0.000-0.055) < 0.017 ng/mL (0.000-0.055) Total Protein 7.3 g/dL (6.4-8.2) Albumin 3.9 g/dL (3.4-5.0) Albumin/Globulin Ratio 1.1 (1.0-1.7) O2 Saturation 96 % (92-99) Arterial Blood pH 7.33 (7.35-7.45) Arterial Blood pCO2 at Patient Temp 45 mmHg (35-46) Arterial Blood pO2 at Patient Temp 87 mmHg (65-108) Arterial Blood HCO3 23 mmol/L (21-28) Arterial Blood Base Excess -3 mmol/L (-3-3) FiO2 28.0 Glucose (Fingerstick) 292 mg/dL (70-99) Test 12/27/17 20:24 12/28/17 05:12 12/28/17 07:45 Glucose (Fingerstick) 351 mg/dL (70-99) 260 mg/dL (70-99) White Blood Count 10.3 x10^3/uL (4.0-11.0) Red Blood Count 4.71 x10^6/uL (4.30-5.70) Hemoglobin 14.9 g/dL (13.0-17.5) Hematocrit 43.0 % (39.0-53.0) Mean Corpuscular Volume 91 fL (79-100) Mean Corpuscular Hemoglobin 32 pg (25-35) Mean Corpuscular Hemoglobin Concent 35 g/dL (31-37) Red Cell Distribution Width 15.0 % (11.5-14.5) Platelet Count 163 x10^3/uL (140-400) Neutrophils (%) (Auto) 92 % (31-73) Lymphocytes (%) (Auto) 5 % (24-48) Monocytes (%) (Auto) 3 % (0-9) Eosinophils (%) (Auto) 0 % (0-3) Basophils (%) (Auto) 0 % (0-3) Neutrophils # (Auto) 9.4 x10^3uL (1.8-7.7) Lymphocytes # (Auto) 0.5 x10^3/uL (1.0-4.8) Monocytes # (Auto) 0.3 x10^3/uL (0.0-1.1) Eosinophils # (Auto) 0.0 x10^3/uL (0.0-0.7) Basophils # (Auto) 0.0 x10^3/uL (0.0-0.2) Sodium Level 135 mmol/L (136-145) Potassium Level 4.5 mmol/L (3.5-5.1) Chloride Level 104 mmol/L (98-107) Carbon Dioxide Level 23 mmol/L (21-32) Anion Gap 8 (6-14) Blood Urea Nitrogen 27 mg/dL (8-26) Creatinine 1.0 mg/dL (0.7-1.3) Estimated GFR (Cockcroft-Gault) 75.2 BUN/Creatinine Ratio 27 (6-20) Glucose Level 259 mg/dL (70-99) Calcium Level 8.8 mg/dL (8.5-10.1) Total Bilirubin 0.5 mg/dL (0.2-1.0) Aspartate Amino Transf (AST/SGOT) 21 U/L (15-37) Alanine Aminotransferase (ALT/SGPT) 30 U/L (16-63) Alkaline Phosphatase 109 U/L (46-116) Total Protein 7.5 g/dL (6.4-8.2) Albumin 3.3 g/dL (3.4-5.0) Albumin/Globulin Ratio 0.8 (1.0-1.7) Objective Assessment Leukocytosis - improved today but on Steroids AECOPD with resp rates in upper 30's DM Ongoing tobacco abuse H/o Zoster Plan Plan of Care Cont Levoflox Added Vanc and Cefepime 12/27 F/u labs and cults D/w # [id number] DOREEN CARTER MD Dec 28, 2017 08:36
[2017-12-28] MEDS: INSULIN GLARGINE 300 UNITS/3 ML INSULN.PEN. SQ SCH ×2 (08:45→21:28)
[2017-12-28] MEDS: INSULIN LISPRO 300 UNITS/3 ML INSULN.PEN. SQ SCH ×5 (08:46→17:19)
[2017-12-28] MEDS ORDERED: INSULIN GLARGINE 300 UNITS/3 ML INSULN.PEN. SQ ONE (09:00)
[2017-12-28] MEDS: LISINOPRIL 5 MG TABLET. PO SCH (09:00)
[2017-12-28] MEDS: CLOPIDOGREL BISULFATE 75 MG TABLET PO SCH (09:00)
[2017-12-28] MEDS: APIXABAN 5 MG TABLET. PO SCH (09:00)
[2017-12-28 09:45] LABS: % BANDS 13 % (0-9); % LYMPHS 5 % (24-48); % SEGS 82 % (35-66); ANISOCYTOSIS PRESENT; PLT ESTIMATE ADEQUATE (ADEQUATE)
[2017-12-28] MEDS: BENZONATATE 100 MG CAPSULE. PO SCH ×3 (12:05→21:19)
[2017-12-28] MEDS: MORPHINE SULFATE 2 MG/ML VIAL. IV PRN ×3 (12:09→17:12)
[2017-12-28] MEDS: SERTRALINE 50 MG TABLET. PO SCH (12:15)
--- NOTE | 2017-12-28 12:28 | PDOC ---
PULMONARY PROGRESS NOTES Subjective less cough/ less soa Vitals Vital Signs Date Time Temp Pulse Resp B/P (MAP) Pulse Ox O2 Delivery O2 Flow Rate FiO2 12/28/17 12:09 Nasal Cannula 2.0 12/28/17 11:20 96 12/28/17 11:10 109 22 112/76 (88) 12/28/17 07:00 96.4 96.4 General: Alert, No acute distress HEENT: Other Lungs: Clear Cardiovascular: S1, S2 Abdomen: Soft, Non-tender, Other Neuro Exam: Alert Extremities: No Edema Labs Laboratory Tests Test 12/27/17 08:55 12/27/17 13:30 12/27/17 16:00 12/27/17 16:35 White Blood Count 12.3 x10^3/uL (4.0-11.0) Red Blood Count 5.18 x10^6/uL (4.30-5.70) Hemoglobin 16.1 g/dL (13.0-17.5) Hematocrit 47.0 % (39.0-53.0) Mean Corpuscular Volume 91 fL (79-100) Mean Corpuscular Hemoglobin 31 pg (25-35) Mean Corpuscular Hemoglobin Concent 34 g/dL (31-37) Red Cell Distribution Width 15.0 % (11.5-14.5) Platelet Count 183 x10^3/uL (140-400) Neutrophils (%) (Auto) 74 % (31-73) Lymphocytes (%) (Auto) 13 % (24-48) Monocytes (%) (Auto) 11 % (0-9) Eosinophils (%) (Auto) 2 % (0-3) Basophils (%) (Auto) 1 % (0-3) Neutrophils # (Auto) 9.2 x10^3uL (1.8-7.7) Lymphocytes # (Auto) 1.6 x10^3/uL (1.0-4.8) Monocytes # (Auto) 1.3 x10^3/uL (0.0-1.1) Eosinophils # (Auto) 0.3 x10^3/uL (0.0-0.7) Basophils # (Auto) 0.1 x10^3/uL (0.0-0.2) Prothrombin Time 12.7 SEC (11.7-14.0) Prothromb Time International Ratio 1.0 (0.8-1.1) Activated Partial Thromboplast Time 31 SEC (24-38) Sodium Level 138 mmol/L (136-145) Potassium Level 4.2 mmol/L (3.5-5.1) Chloride Level 104 mmol/L (98-107) Carbon Dioxide Level 24 mmol/L (21-32) Anion Gap 10 (6-14) Blood Urea Nitrogen 21 mg/dL (8-26) Creatinine 1.1 mg/dL (0.7-1.3) Estimated GFR (Cockcroft-Gault) 67.4 BUN/Creatinine Ratio 19 (6-20) Glucose Level 148 mg/dL (70-99) Lactic Acid Level 2.7 mmol/L (0.4-2.0) 1.6 mmol/L (0.4-2.0) Calcium Level 9.0 mg/dL (8.5-10.1) Total Bilirubin 0.6 mg/dL (0.2-1.0) Aspartate Amino Transf (AST/SGOT) 26 U/L (15-37) Alanine Aminotransferase (ALT/SGPT) 33 U/L (16-63) Alkaline Phosphatase 129 U/L (46-116) Troponin I Quantitative 0.031 ng/mL (0.000-0.055) < 0.017 ng/mL (0.000-0.055) Total Protein 7.3 g/dL (6.4-8.2) Albumin 3.9 g/dL (3.4-5.0) Albumin/Globulin Ratio 1.1 (1.0-1.7) O2 Saturation 96 % (92-99) Arterial Blood pH 7.33 (7.35-7.45) Arterial Blood pCO2 at Patient Temp 45 mmHg (35-46) Arterial Blood pO2 at Patient Temp 87 mmHg (65-108) Arterial Blood HCO3 23 mmol/L (21-28) Arterial Blood Base Excess -3 mmol/L (-3-3) FiO2 28.0 Glucose (Fingerstick) 292 mg/dL (70-99) Test 12/27/17 20:24 12/28/17 05:12 12/28/17 07:45 12/28/17 11:19 Glucose (Fingerstick) 351 mg/dL (70-99) 260 mg/dL (70-99) 287 mg/dL (70-99) White Blood Count 10.3 x10^3/uL (4.0-11.0) Red Blood Count 4.71 x10^6/uL (4.30-5.70) Hemoglobin 14.9 g/dL (13.0-17.5) Hematocrit 43.0 % (39.0-53.0) Mean Corpuscular Volume 91 fL (79-100) Mean Corpuscular Hemoglobin 32 pg (25-35) Mean Corpuscular Hemoglobin Concent 35 g/dL (31-37) Red Cell Distribution Width 15.0 % (11.5-14.5) Platelet Count 163 x10^3/uL (140-400) Neutrophils (%) (Auto) 92 % (31-73) Lymphocytes (%) (Auto) 5 % (24-48) Monocytes (%) (Auto) 3 % (0-9) Eosinophils (%) (Auto) 0 % (0-3) Basophils (%) (Auto) 0 % (0-3) Neutrophils # (Auto) 9.4 x10^3uL (1.8-7.7) Lymphocytes # (Auto) 0.5 x10^3/uL (1.0-4.8) Monocytes # (Auto) 0.3 x10^3/uL (0.0-1.1) Eosinophils # (Auto) 0.0 x10^3/uL (0.0-0.7) Basophils # (Auto) 0.0 x10^3/uL (0.0-0.2) Segmented Neutrophils % 82 % (35-66) Band Neutrophils % 13 % (0-9) Lymphocytes % 5 % (24-48) Platelet Estimate Adequate (ADEQUATE) Anisocytosis Present Sodium Level 135 mmol/L (136-145) Potassium Level 4.5 mmol/L (3.5-5.1) Chloride Level 104 mmol/L (98-107) Carbon Dioxide Level 23 mmol/L (21-32) Anion Gap 8 (6-14) Blood Urea Nitrogen 27 mg/dL (8-26) Creatinine 1.0 mg/dL (0.7-1.3) Estimated GFR (Cockcroft-Gault) 75.2 BUN/Creatinine Ratio 27 (6-20) Glucose Level 259 mg/dL (70-99) Calcium Level 8.8 mg/dL (8.5-10.1) Total Bilirubin 0.5 mg/dL (0.2-1.0) Aspartate Amino Transf (AST/SGOT) 21 U/L (15-37) Alanine Aminotransferase (ALT/SGPT) 30 U/L (16-63) Alkaline Phosphatase 109 U/L (46-116) Total Protein 7.5 g/dL (6.4-8.2) Albumin 3.3 g/dL (3.4-5.0) Albumin/Globulin Ratio 0.8 (1.0-1.7) Laboratory Tests Test 12/27/17 13:30 12/27/17 16:00 12/27/17 16:35 12/27/17 20:24 O2 Saturation 96 % (92-99) Arterial Blood pH 7.33 (7.35-7.45) Arterial Blood pCO2 at Patient Temp 45 mmHg (35-46) Arterial Blood pO2 at Patient Temp 87 mmHg (65-108) Arterial Blood HCO3 23 mmol/L (21-28) Arterial Blood Base Excess -3 mmol/L (-3-3) FiO2 28.0 Lactic Acid Level 1.6 mmol/L (0.4-2.0) Troponin I Quantitative < 0.017 ng/mL (0.000-0.055) Glucose (Fingerstick) 292 mg/dL (70-99) 351 mg/dL (70-99) Test 12/28/17 05:12 12/28/17 07:45 12/28/17 11:19 White Blood Count 10.3 x10^3/uL (4.0-11.0) Red Blood Count 4.71 x10^6/uL (4.30-5.70) Hemoglobin 14.9 g/dL (13.0-17.5) Hematocrit 43.0 % (39.0-53.0) Mean Corpuscular Volume 91 fL (79-100) Mean Corpuscular Hemoglobin 32 pg (25-35) Mean Corpuscular Hemoglobin Concent 35 g/dL (31-37) Red Cell Distribution Width 15.0 % (11.5-14.5) Platelet Count 163 x10^3/uL (140-400) Neutrophils (%) (Auto) 92 % (31-73) Lymphocytes (%) (Auto) 5 % (24-48) Monocytes (%) (Auto) 3 % (0-9) Eosinophils (%) (Auto) 0 % (0-3) Basophils (%) (Auto) 0 % (0-3) Neutrophils # (Auto) 9.4 x10^3uL (1.8-7.7) Lymphocytes # (Auto) 0.5 x10^3/uL (1.0-4.8) Monocytes # (Auto) 0.3 x10^3/uL (0.0-1.1) Eosinophils # (Auto) 0.0 x10^3/uL (0.0-0.7) Basophils # (Auto) 0.0 x10^3/uL (0.0-0.2) Segmented Neutrophils % 82 % (35-66) Band Neutrophils % 13 % (0-9) Lymphocytes % 5 % (24-48) Platelet Estimate Adequate (ADEQUATE) Anisocytosis Present Sodium Level 135 mmol/L (136-145) Potassium Level 4.5 mmol/L (3.5-5.1) Chloride Level 104 mmol/L (98-107) Carbon Dioxide Level 23 mmol/L (21-32) Anion Gap 8 (6-14) Blood Urea Nitrogen 27 mg/dL (8-26) Creatinine 1.0 mg/dL (0.7-1.3) Estimated GFR (Cockcroft-Gault) 75.2 BUN/Creatinine Ratio 27 (6-20) Glucose Level 259 mg/dL (70-99) Calcium Level 8.8 mg/dL (8.5-10.1) Total Bilirubin 0.5 mg/dL (0.2-1.0) Aspartate Amino Transf (AST/SGOT) 21 U/L (15-37) Alanine Aminotransferase (ALT/SGPT) 30 U/L (16-63) Alkaline Phosphatase 109 U/L (46-116) Total Protein 7.5 g/dL (6.4-8.2) Albumin 3.3 g/dL (3.4-5.0) Albumin/Globulin Ratio 0.8 (1.0-1.7) Glucose (Fingerstick) 260 mg/dL (70-99) 287 mg/dL (70-99) Medications Active Scripts Medications Dose Route/Sig Max Daily Dose Days Date Category Dose Instructions Oxycodone Hcl 10 Mg Tablet 1 Tab PO QID 12/27/17 Reported Breo Ellipta 200-25 Mcg INH (Fluticasone/Vilanterol) 1 Each Blst.w.dev 1 Each INH 12/27/17 Reported Tresiba Flextouch U-200 (Insulin Degludec) 200 Unit/1 Ml Insuln.pen 80 Unit SQ BID 11/28/17 Reported Tamsulosin Hcl 0.4 Mg Cap.er.24h 1 Cap PO DAILY 11/28/17 Reported Aspirin 325 Mg Tablet 1 Tab PO DAILY 11/28/17 Reported Prilosec Otc (Omeprazole Magnesium) 20 Mg Tablet.dr 1 Tab PO DAILY 11/28/17 Reported Cymbalta (Duloxetine Hcl) 60 Mg Capsule.dr 1 Cap PO DAILY 11/28/17 Reported Eliquis (Apixaban) 5 Mg Tablet 5 Mg PO BID 10/08/16 Rx Hydroxychloroquine Sulfate 200 Mg Tablet 1 Tab PO BID 10/07/16 Reported Finasteride 5 Mg Tablet 1 Tab PO DAILY 10/07/16 Reported Zoloft (Sertraline Hcl) 50 Mg Tablet 1 Tab PO DAILY 10/07/16 Reported Omeprazole 40 Mg Capsule.dr 1 Cap PO DAILY 10/07/16 Reported Metformin Hcl Er (Metformin Hcl) 1,000 Mg Tab.er.24 1,000 Mg PO DAILYWBKFT 10/07/16 Reported NITROGLYCERIN SubLingual (Nitroglycerin) 0.4 Mg Tab.subl 0.4 Mg SL PRN Q5MIN PRN 10/07/16 Reported Breo Ellipta 200-25 Mcg INH (Fluticasone/Vilanterol) 1 Each Blst.w.dev 2 Puff IH DAILY PRN 10/07/16 Reported Atorvastatin Calcium 20 Mg Tablet 20 Mg PO HS 12/17/14 Reported Gabapentin 300 Mg Capsule 300 Mg PO TID 11/03/14 Reported NEXT DOSE DUE AT 2 PM AND AT BEDTIME Carvedilol 3.125 Mg Tablet 1 Tab PO BID 09/25/14 Reported NEXT DOSE DUE WITH SUPPER TODAY Lisinopril 2.5 Mg Tablet 1 Tab PO DAILY 09/25/14 Reported NEXT DOSE DUE ON 11/05/14 Plavix (Clopidogrel Bisulfate) 75 Mg Tablet 1 Tab PO DAILY 09/25/14 Reported NEXT DOSE DUE ON 11/05/14 Prilosec (Omeprazole) 40 Mg Capsule.dr 40 Mg PO DAILY 07/11/13 Reported MAY TAKE ANY TIME Impression . 1. Acute exacerbation of chronic obstructive pulmonary disease in a patient with ongoing tobacco use since 40 years. 2. Acute hypoxic respiratory failure secondary to acute exacerbation of chronic obstructive pulmonary disease and acute bronchitis. 3. No definite consolidation seen on the chest x-ray. Plan . 1. Discussed with the patient and the the importance of tobacco cessation. 2. Continue present oxygen to keep saturation 92% and above. 3. Continue present bronchodilators. 4. Steroids with gradual taper. 5. Antibiotics. 6. Anticoagulation per PCP. 7. We will follow along with you. 8. We will do PFTs as an outpatient. KAY KNOX MD Dec 28, 2017 12:28
--- NOTE | 2017-12-28 13:09 | PDOC ---
PROGRESS NOTES Chief Complaint Chief Complaint acute hypoxic resp failure COPD exacerbation acute bronchitis, recurrent dizzy/ lightheaded with h/o orthostatic hypotension H/O CAD WITH stents dm2 on insulin tobacco use disroder, HTN off meds HLD GERD depression BPH marijuana use h/o stroke with mild rt side weakness groin aron dermatitis recent shingles PPM plan: pulm consulted, id consulted, add vanco and cefepime, cont levaquin cont home meds,dc eliquis , plavix and other HTN meds which pt doesnot take add duoneb, solumedrol 125mg iv tid, increase duoneb to q4h, albuterol prn cough meds,add tesslon, cont mucinext check orthostatic bp neg check CTA head neg increase lantus to 90u tid, add novolog 10u tid, ssi smoking education done MRI neg given CT showed spinal stenosis History of Present Illness History of Present Illness ROS: no fever, chills, r chest pain pt feels slightly sob better but very tachynia when seen in the room today, barely can talk cont severe cough hyperglycemia with steroid Vitals Vitals Vital Signs Date Time Temp Pulse Resp B/P (MAP) Pulse Ox O2 Delivery O2 Flow Rate FiO2 12/28/17 12:09 Nasal Cannula 2.0 12/28/17 11:20 96 12/28/17 11:10 109 22 112/76 (88) 12/28/17 07:00 96.4 96.4 Physical Exam General: Alert, Oriented X3, Cooperative Heart: Regular rate, Normal S1, Normal S2 Lungs: Wheezing (bl severe wheezing and tightness) Abdomen: Normal bowel sounds, Soft Extremities: No clubbing, No cyanosis Skin: No rashes Labs LABS Laboratory Tests Test 12/27/17 13:30 12/27/17 16:00 12/27/17 16:35 12/27/17 20:24 O2 Saturation 96 % (92-99) Arterial Blood pH 7.33 (7.35-7.45) Arterial Blood pCO2 at Patient Temp 45 mmHg (35-46) Arterial Blood pO2 at Patient Temp 87 mmHg (65-108) Arterial Blood HCO3 23 mmol/L (21-28) Arterial Blood Base Excess -3 mmol/L (-3-3) FiO2 28.0 Lactic Acid Level 1.6 mmol/L (0.4-2.0) Troponin I Quantitative < 0.017 ng/mL (0.000-0.055) Glucose (Fingerstick) 292 mg/dL (70-99) 351 mg/dL (70-99) Test 12/28/17 05:12 12/28/17 07:45 12/28/17 11:19 White Blood Count 10.3 x10^3/uL (4.0-11.0) Red Blood Count 4.71 x10^6/uL (4.30-5.70) Hemoglobin 14.9 g/dL (13.0-17.5) Hematocrit 43.0 % (39.0-53.0) Mean Corpuscular Volume 91 fL (79-100) Mean Corpuscular Hemoglobin 32 pg (25-35) Mean Corpuscular Hemoglobin Concent 35 g/dL (31-37) Red Cell Distribution Width 15.0 % (11.5-14.5) Platelet Count 163 x10^3/uL (140-400) Neutrophils (%) (Auto) 92 % (31-73) Lymphocytes (%) (Auto) 5 % (24-48) Monocytes (%) (Auto) 3 % (0-9) Eosinophils (%) (Auto) 0 % (0-3) Basophils (%) (Auto) 0 % (0-3) Neutrophils # (Auto) 9.4 x10^3uL (1.8-7.7) Lymphocytes # (Auto) 0.5 x10^3/uL (1.0-4.8) Monocytes # (Auto) 0.3 x10^3/uL (0.0-1.1) Eosinophils # (Auto) 0.0 x10^3/uL (0.0-0.7) Basophils # (Auto) 0.0 x10^3/uL (0.0-0.2) Segmented Neutrophils % 82 % (35-66) Band Neutrophils % 13 % (0-9) Lymphocytes % 5 % (24-48) Platelet Estimate Adequate (ADEQUATE) Anisocytosis Present Sodium Level 135 mmol/L (136-145) Potassium Level 4.5 mmol/L (3.5-5.1) Chloride Level 104 mmol/L (98-107) Carbon Dioxide Level 23 mmol/L (21-32) Anion Gap 8 (6-14) Blood Urea Nitrogen 27 mg/dL (8-26) Creatinine 1.0 mg/dL (0.7-1.3) Estimated GFR (Cockcroft-Gault) 75.2 BUN/Creatinine Ratio 27 (6-20) Glucose Level 259 mg/dL (70-99) Calcium Level 8.8 mg/dL (8.5-10.1) Total Bilirubin 0.5 mg/dL (0.2-1.0) Aspartate Amino Transf (AST/SGOT) 21 U/L (15-37) Alanine Aminotransferase (ALT/SGPT) 30 U/L (16-63) Alkaline Phosphatase 109 U/L (46-116) Total Protein 7.5 g/dL (6.4-8.2) Albumin 3.3 g/dL (3.4-5.0) Albumin/Globulin Ratio 0.8 (1.0-1.7) Glucose (Fingerstick) 260 mg/dL (70-99) 287 mg/dL (70-99) Assessment and Plan Assessmemt and Plan Problems Medical Problems: (1) COPD (chronic obstructive pulmonary disease) Status: Acute Comment Review of Relevant I have reviewed the following items bud (where applicable) has been applied. Labs Laboratory Tests Test 12/27/17 08:55 12/27/17 13:30 12/27/17 16:00 12/27/17 16:35 White Blood Count 12.3 x10^3/uL (4.0-11.0) Red Blood Count 5.18 x10^6/uL (4.30-5.70) Hemoglobin 16.1 g/dL (13.0-17.5) Hematocrit 47.0 % (39.0-53.0) Mean Corpuscular Volume 91 fL (79-100) Mean Corpuscular Hemoglobin 31 pg (25-35) Mean Corpuscular Hemoglobin Concent 34 g/dL (31-37) Red Cell Distribution Width 15.0 % (11.5-14.5) Platelet Count 183 x10^3/uL (140-400) Neutrophils (%) (Auto) 74 % (31-73) Lymphocytes (%) (Auto) 13 % (24-48) Monocytes (%) (Auto) 11 % (0-9) Eosinophils (%) (Auto) 2 % (0-3) Basophils (%) (Auto) 1 % (0-3) Neutrophils # (Auto) 9.2 x10^3uL (1.8-7.7) Lymphocytes # (Auto) 1.6 x10^3/uL (1.0-4.8) Monocytes # (Auto) 1.3 x10^3/uL (0.0-1.1) Eosinophils # (Auto) 0.3 x10^3/uL (0.0-0.7) Basophils # (Auto) 0.1 x10^3/uL (0.0-0.2) Prothrombin Time 12.7 SEC (11.7-14.0) Prothromb Time International Ratio 1.0 (0.8-1.1) Activated Partial Thromboplast Time 31 SEC (24-38) Sodium Level 138 mmol/L (136-145) Potassium Level 4.2 mmol/L (3.5-5.1) Chloride Level 104 mmol/L (98-107) Carbon Dioxide Level 24 mmol/L (21-32) Anion Gap 10 (6-14) Blood Urea Nitrogen 21 mg/dL (8-26) Creatinine 1.1 mg/dL (0.7-1.3) Estimated GFR (Cockcroft-Gault) 67.4 BUN/Creatinine Ratio 19 (6-20) Glucose Level 148 mg/dL (70-99) Lactic Acid Level 2.7 mmol/L (0.4-2.0) 1.6 mmol/L (0.4-2.0) Calcium Level 9.0 mg/dL (8.5-10.1) Total Bilirubin 0.6 mg/dL (0.2-1.0) Aspartate Amino Transf (AST/SGOT) 26 U/L (15-37) Alanine Aminotransferase (ALT/SGPT) 33 U/L (16-63) Alkaline Phosphatase 129 U/L (46-116) Troponin I Quantitative 0.031 ng/mL (0.000-0.055) < 0.017 ng/mL (0.000-0.055) Total Protein 7.3 g/dL (6.4-8.2) Albumin 3.9 g/dL (3.4-5.0) Albumin/Globulin Ratio 1.1 (1.0-1.7) O2 Saturation 96 % (92-99) Arterial Blood pH 7.33 (7.35-7.45) Arterial Blood pCO2 at Patient Temp 45 mmHg (35-46) Arterial Blood pO2 at Patient Temp 87 mmHg (65-108) Arterial Blood HCO3 23 mmol/L (21-28) Arterial Blood Base Excess -3 mmol/L (-3-3) FiO2 28.0 Glucose (Fingerstick) 292 mg/dL (70-99) Test 12/27/17 20:24 12/28/17 05:12 12/28/17 07:45 12/28/17 11:19 Glucose (Fingerstick) 351 mg/dL (70-99) 260 mg/dL (70-99) 287 mg/dL (70-99) White Blood Count 10.3 x10^3/uL (4.0-11.0) Red Blood Count 4.71 x10^6/uL (4.30-5.70) Hemoglobin 14.9 g/dL (13.0-17.5) Hematocrit 43.0 % (39.0-53.0) Mean Corpuscular Volume 91 fL (79-100) Mean Corpuscular Hemoglobin 32 pg (25-35) Mean Corpuscular Hemoglobin Concent 35 g/dL (31-37) Red Cell Distribution Width 15.0 % (11.5-14.5) Platelet Count 163 x10^3/uL (140-400) Neutrophils (%) (Auto) 92 % (31-73) Lymphocytes (%) (Auto) 5 % (24-48) Monocytes (%) (Auto) 3 % (0-9) Eosinophils (%) (Auto) 0 % (0-3) Basophils (%) (Auto) 0 % (0-3) Neutrophils # (Auto) 9.4 x10^3uL (1.8-7.7) Lymphocytes # (Auto) 0.5 x10^3/uL (1.0-4.8) Monocytes # (Auto) 0.3 x10^3/uL (0.0-1.1) Eosinophils # (Auto) 0.0 x10^3/uL (0.0-0.7) Basophils # (Auto) 0.0 x10^3/uL (0.0-0.2) Segmented Neutrophils % 82 % (35-66) Band Neutrophils % 13 % (0-9) Lymphocytes % 5 % (24-48) Platelet Estimate Adequate (ADEQUATE) Anisocytosis Present Sodium Level 135 mmol/L (136-145) Potassium Level 4.5 mmol/L (3.5-5.1) Chloride Level 104 mmol/L (98-107) Carbon Dioxide Level 23 mmol/L (21-32) Anion Gap 8 (6-14) Blood Urea Nitrogen 27 mg/dL (8-26) Creatinine 1.0 mg/dL (0.7-1.3) Estimated GFR (Cockcroft-Gault) 75.2 BUN/Creatinine Ratio 27 (6-20) Glucose Level 259 mg/dL (70-99) Calcium Level 8.8 mg/dL (8.5-10.1) Total Bilirubin 0.5 mg/dL (0.2-1.0) Aspartate Amino Transf (AST/SGOT) 21 U/L (15-37) Alanine Aminotransferase (ALT/SGPT) 30 U/L (16-63) Alkaline Phosphatase 109 U/L (46-116) Total Protein 7.5 g/dL (6.4-8.2) Albumin 3.3 g/dL (3.4-5.0) Albumin/Globulin Ratio 0.8 (1.0-1.7) Laboratory Tests Test 12/27/17 13:30 12/27/17 16:00 12/27/17 16:35 12/27/17 20:24 O2 Saturation 96 % (92-99) Arterial Blood pH 7.33 (7.35-7.45) Arterial Blood pCO2 at Patient Temp 45 mmHg (35-46) Arterial Blood pO2 at Patient Temp 87 mmHg (65-108) Arterial Blood HCO3 23 mmol/L (21-28) Arterial Blood Base Excess -3 mmol/L (-3-3) FiO2 28.0 Lactic Acid Level 1.6 mmol/L (0.4-2.0) Troponin I Quantitative < 0.017 ng/mL (0.000-0.055) Glucose (Fingerstick) 292 mg/dL (70-99) 351 mg/dL (70-99) Test 12/28/17 05:12 12/28/17 07:45 12/28/17 11:19 White Blood Count 10.3 x10^3/uL (4.0-11.0) Red Blood Count 4.71 x10^6/uL (4.30-5.70) Hemoglobin 14.9 g/dL (13.0-17.5) Hematocrit 43.0 % (39.0-53.0) Mean Corpuscular Volume 91 fL (79-100) Mean Corpuscular Hemoglobin 32 pg (25-35) Mean Corpuscular Hemoglobin Concent 35 g/dL (31-37) Red Cell Distribution Width 15.0 % (11.5-14.5) Platelet Count 163 x10^3/uL (140-400) Neutrophils (%) (Auto) 92 % (31-73) Lymphocytes (%) (Auto) 5 % (24-48) Monocytes (%) (Auto) 3 % (0-9) Eosinophils (%) (Auto) 0 % (0-3) Basophils (%) (Auto) 0 % (0-3) Neutrophils # (Auto) 9.4 x10^3uL (1.8-7.7) Lymphocytes # (Auto) 0.5 x10^3/uL (1.0-4.8) Monocytes # (Auto) 0.3 x10^3/uL (0.0-1.1) Eosinophils # (Auto) 0.0 x10^3/uL (0.0-0.7) Basophils # (Auto) 0.0 x10^3/uL (0.0-0.2) Segmented Neutrophils % 82 % (35-66) Band Neutrophils % 13 % (0-9) Lymphocytes % 5 % (24-48) Platelet Estimate Adequate (ADEQUATE) Anisocytosis Present Sodium Level 135 mmol/L (136-145) Potassium Level 4.5 mmol/L (3.5-5.1) Chloride Level 104 mmol/L (98-107) Carbon Dioxide Level 23 mmol/L (21-32) Anion Gap 8 (6-14) Blood Urea Nitrogen 27 mg/dL (8-26) Creatinine 1.0 mg/dL (0.7-1.3) Estimated GFR (Cockcroft-Gault) 75.2 BUN/Creatinine Ratio 27 (6-20) Glucose Level 259 mg/dL (70-99) Calcium Level 8.8 mg/dL (8.5-10.1) Total Bilirubin 0.5 mg/dL (0.2-1.0) Aspartate Amino Transf (AST/SGOT) 21 U/L (15-37) Alanine Aminotransferase (ALT/SGPT) 30 U/L (16-63) Alkaline Phosphatase 109 U/L (46-116) Total Protein 7.5 g/dL (6.4-8.2) Albumin 3.3 g/dL (3.4-5.0) Albumin/Globulin Ratio 0.8 (1.0-1.7) Glucose (Fingerstick) 260 mg/dL (70-99) 287 mg/dL (70-99) Microbiology 12/27/17 Blood Culture - Preliminary, Resulted NO GROWTH AFTER 1 DAY Medications Current Medications Methylprednisolone Sodium Succinate (SOLU-Medrol 125MG VIAL) 125 mg 1X ONCE IV Last administered on 12/27/17 08:52; Start 12/27/17 at 08:30; Stop 12/27/17 at 08:31; Status DC Albuterol/ Ipratropium (Duoneb) 3 ml 1X ONCE NEB Last administered on at 08:42; Start 12/27/17 at 08:30; Stop 12/27/17 at 08:31; Status DC Benzonatate (Tessalon Perle) 100 mg 1X ONCE PO Last administered on 12/27/17at 08:40; Start 12/27/17 at 08:30; Stop 12/27/17 at 08:31; Status DC Morphine Sulfate (Morphine Sulfate) 2 mg 1X ONCE IV Last administered on at 08:55; Start 12/27/17 at 08:30; Stop 12/27/17 at 08:31; Status DC Ondansetron HCl (Zofran) 4 mg 1X ONCE IV Last administered on 12/27/17at 08:53; Start 12/27/17 at 08:30; Stop 12/27/17 at 08:31; Status DC Levofloxacin/ Dextrose 150 ml @ 100 mls/hr 1X ONCE IV Last administered on 12/27/17at 10:12; Start 12/27/17 at 10:00; Stop 12/27/17 at 11:29; Status DC Sodium Chloride 1,000 ml @ 1,000 mls/hr 1X ONCE IV Last administered on at 10:10; Start 12/27/17 at 10:00; Stop 12/27/17 at 10:59; Status DC Albuterol/ Ipratropium (Duoneb) 3 ml 1X ONCE NEB Last administered on at 10:10; Start 12/27/17 at 10:00; Stop 12/27/17 at 10:04; Status DC Ketorolac Tromethamine (Toradol 30mg Vial) 15 mg 1X ONCE IV Last administered on 12/27/17at 10:08; Start 12/27/17 at 10:00; Stop 12/27/17 at 10:04; Status DC Ondansetron HCl (Zofran) 4 mg PRN Q8HRS PRN IV NAUSEA/VOMITING; Start 12/27/17 at 10:15; Stop 12/28/17 at 10:14; Status DC Morphine Sulfate (Morphine Sulfate) 4 mg PRN Q2HR PRN IV PAIN Last administered on 12/27/17at 14:45; Start 12/27/17 at 10:15; Stop 12/28/17 at 10:14; Status DC Acetaminophen (Tylenol) 650 mg PRN Q4HRS PRN PO FEVER; Start 12/27/17 at 10:15; Stop 12/27/17 at 12:20; Status DC Insulin Human Lispro (HumaLOG) 0-9 UNITS TIDWMEALS SQ Last administered on at 12:15; Start 12/27/17 at 12:30 Dextrose (Dextrose 50%-Water Syringe) 12.5 gm PRN Q15MIN PRN IV SEE COMMENTS; Start 12/27/17 at 12:15 Acetaminophen (Tylenol) 650 mg PRN Q6HRS PRN PO FEVER; Start 12/27/17 at 12:15 Ondansetron HCl (Zofran) 4 mg PRN Q6HRS PRN IV NAUSEA/VOMITING 1ST CHOICE; Start 12/27/17 at 12:15 Morphine Sulfate (Morphine Sulfate) 2 mg PRN Q2HR PRN IV MODERATE TO SEVERE PAIN Last administered on 12/28/17at 12:09; Start 12/27/17 at 12:15 Tramadol HCl (Ultram) 50 mg PRN Q6HRS PRN PO MILD TO MODERATE PAIN Last administered on 12/27/17at 16:24; Start 12/27/17 at 12:15 Docusate Sodium (Colace) 100 mg PRN DAILY PRN PO HARD STOOLS; Start 12/27/17 at 12:15 Labetalol HCl (Normodyne Iv Push) 20 mg PRN Q2HR PRN IVP HYPERTENSION, SEE COMMENTS; Start 12/27/17 at 12:15 Albuterol/ Ipratropium (Duoneb) 3 ml RTQID NEB Last administered on 12/28/17at 07 :18; Start 12/27/17 at 16:00; Stop 12/28/17 at 09:49; Status DC Albuterol Sulfate (Ventolin Neb Soln) 2.5 mg PRN Q2HR PRN NEB SHORTNESS OF BREATH; Start 12/27/17 at 12:15 Guaifenesin (Mucinex) 600 mg BID PO Last administered on 12/28/17at 08:34; Start 12/27/17 at 13:00 Methylprednisolone Sodium Succinate (SOLU-Medrol 125MG VIAL) 125 mg Q8HRS IV Last administered on 12/28/17at 05:35; Start 12/27/17 at 14:00 Apixaban (Eliquis) 5 mg BID PO Last administered on 12/27/17at 20:36; Start at 21:00; Stop 12/28/17 at 09:49; Status DC Aspirin (Jorge Luis Aspirin) 325 mg DAILY PO Last administered on 12/28/17at 08:33; Start 12/28/17 at 09:00 Atorvastatin Calcium (Lipitor) 20 mg HS PO Last administered on 12/27/17at 20:36 ; Start 12/27/17 at 21:00 Carvedilol (Coreg) 3.125 mg BIDWMEALS PO Last administered on 12/27/17at 20:36; Start 12/27/17 at 21:00; Stop 12/28/17 at 09:49; Status DC Clopidogrel Bisulfate (Plavix) 75 mg DAILY PO Last administered on 12/27/17at 16: 15; Start 12/27/17 at 13:00; Stop 12/28/17 at 09:49; Status DC Finasteride (Proscar) 5 mg DAILY PO Last administered on 12/28/17at 08:33; Start 12/27/17 at 13:00 Nitroglycerin (Nitrostat) 0.4 mg PRN Q5MIN PRN SL CHEST PAIN; Start 12/27/17 at 12:15 Sertraline HCl (Zoloft) 50 mg DAILY PO ; Start 12/28/17 at 09:00 Tamsulosin HCl (Flomax) 0.4 mg DAILY PO Last administered on 12/28/17at 08:33; Start 12/27/17 at 13:00; Stop 12/28/17 at 09:49; Status DC Duloxetine HCl (Cymbalta) 60 mg DAILY PO Last administered on 12/28/17at 08:33; Start 12/27/17 at 14:00 Non-Formulary Medication (Fluticasone/ Vilanterol (Breo Ellipta 200-25 Mcg INH) ) 2 puff DAILY PRN IH prn; Start 12/27/17 at 12:15; Status UNV Gabapentin (Neurontin) 300 mg TID PO Last administered on 12/28/17at 08:34; Start 12/27/17 at 14:00 Hydroxychloroquine Sulfate (Plaquenil) 200 mg BID PO Last administered on at 08:32; Start 12/27/17 at 14:00 Insulin Glargine (Lantus) 75 units BID SQ Last administered on 12/28/17at 08:45; Start 12/27/17 at 21:00; Stop 12/28/17 at 09:49; Status DC Lisinopril (Prinivil) 2.5 mg DAILY PO Last administered on 12/27/17at 16:15; Start 12/27/17 at 14:00; Stop 12/28/17 at 09:49; Status DC Metformin HCl (Glucophage Xr) 1,000 mg DAILYWBKFT PO ; Start 12/30/17 at 08:00 Pantoprazole Sodium (Protonix) 40 mg DAILYAC PO Last administered on 12/28/17at 07:46; Start 12/27/17 at 14:00 Levofloxacin/ Dextrose 100 ml @ 100 mls/hr DAILY IV Last administered on at 08:36; Start 12/28/17 at 09:00 Info (Anti-Coagulation Monitoring By Pharmacy) 1 each PRN DAILY PRN MC SEE COMMENTS; Start 12/27/17 at 12:30 Iohexol (Omnipaque 300 Mg/ml) 75 ml 1X ONCE IV Last administered on 12/27/17at 12:30; Start 12/27/17 at 12:30; Stop 12/27/17 at 12:55; Status DC Info (CONTRAST GIVEN -- Rx MONITORING) 1 each PRN DAILY PRN MC SEE COMMENTS; Start 12/27/17 at 13:00; Stop 12/29/17 at 12:59 Budesonide (Pulmicort) 0.5 mg RTBID NEB Last administered on 12/28/17at 07:18; Start 12/27/17 at 20:00 Cefepime HCl (Maxipime) 1 gm Q12HR IVP ; Start 12/27/17 at 17:00; Stop 12/27/17 at 17:00; Status DC Cefepime HCl (Maxipime) 1 gm Q8HRS IVP Last administered on 12/28/17at 05:35; Start 12/27/17 at 17:00 Vancomycin HCl (Vanco Per Pharmacy) 1 each PRN DAILY PRN MC SEE COMMENTS Last administered on 12/27/17at 18:39; Start 12/27/17 at 16:45 Vancomycin HCl 2 gm/Sodium Chloride 500 ml @ 250 mls/hr ONCE ONCE IV Last administered on 12/27/17at 18:13; Start 12/27/17 at 17:00; Stop 12/27/17 at 18:59; Status DC Oxycodone HCl (Roxicodone) 10 mg QID PO Last administered on 12/27/17at 18:13; Start 12/27/17 at 17:30; Stop 12/27/17 at 19:06; Status DC Vancomycin HCl 1.5 gm/Sodium Chloride 500 ml @ 250 mls/hr Q12H IV Last administered on 12/28/17at 05:35; Start 12/28/17 at 06:00 Vancomycin HCl (Vancomycin Trough Level) 1 each 1X ONCE MC ; Start 12/29/17 at 05:30; Stop 12/29/17 at 05:31 Nicotine (Nicoderm Cq 21mg) 1 patch PRN DAILY PRN TD SMOKING CESSATION Last administered on 12/28/17at 08:35; Start 12/27/17 at 18:45 Oxycodone HCl (Roxicodone) 10 mg PRN QID PRN PO SEVERE PAIN Last administered on 12/28/17at 12:06; Start 12/27/17 at 19:15 Insulin Human Lispro (HumaLOG) 15 units 1X ONCE SQ Last administered on at 21:38; Start 12/27/17 at 21:15; Stop 12/27/17 at 21:16; Status DC Insulin Glargine (Lantus) 10 units 1X ONCE SQ Last administered on 12/28/17at 09 :10; Start 12/28/17 at 09:00; Stop 12/28/17 at 09:01; Status DC Insulin Glargine (Lantus) 85 units BID SQ ; Start 12/28/17 at 21:00 Albuterol/ Ipratropium (Duoneb) 3 ml Q4HRS NEB Last administered on 12/28/17at 11 :19; Start 12/28/17 at 12:00 Insulin Human Lispro (HumaLOG) 10 units TIDAC SQ Last administered on 12/28/17at 12:15; Start 12/28/17 at 11:30 Benzonatate (Tessalon Perle) 100 mg [id number] PO Last administered on 12/28/17at 12: 05; Start 12/28/17 at 11:00 Active Scripts Active Eliquis (Apixaban) 5 Mg Tablet 5 Mg PO BID Reported Oxycodone Hcl 10 Mg Tablet 1 Tab PO QID Breo Ellipta 200-25 Mcg INH (Fluticasone/Vilanterol) 1 Each Blst.w.dev 1 Each INH Tresiba Flextouch U-200 (Insulin Degludec) 200 Unit/1 Ml Insuln.pen 80 Unit SQ BID Tamsulosin Hcl 0.4 Mg Cap.er.24h 1 Cap PO DAILY Aspirin 325 Mg Tablet 1 Tab PO DAILY Prilosec Otc (Omeprazole Magnesium) 20 Mg Tablet.dr 1 Tab PO DAILY Cymbalta (Duloxetine Hcl) 60 Mg Capsule.dr 1 Cap PO DAILY Hydroxychloroquine Sulfate 200 Mg Tablet 1 Tab PO BID Finasteride 5 Mg Tablet 1 Tab PO DAILY Zoloft (Sertraline Hcl) 50 Mg Tablet 1 Tab PO DAILY Omeprazole 40 Mg Capsule.dr 1 Cap PO DAILY Metformin Hcl Er (Metformin Hcl) 1,000 Mg Tab.er.24 1,000 Mg PO DAILYWBKFT NITROGLYCERIN SubLingual (Nitroglycerin) 0.4 Mg Tab.subl 0.4 Mg SL PRN Q5MIN PRN Breo Ellipta 200-25 Mcg INH (Fluticasone/Vilanterol) 1 Each Blst.w.dev 2 Puff IH DAILY PRN Atorvastatin Calcium 20 Mg Tablet 20 Mg PO HS Gabapentin 300 Mg Capsule 300 Mg PO TID NEXT DOSE DUE AT 2 PM AND AT BEDTIME Carvedilol 3.125 Mg Tablet 1 Tab PO BID NEXT DOSE DUE WITH SUPPER TODAY Lisinopril 2.5 Mg Tablet 1 Tab PO DAILY NEXT DOSE DUE ON 11/05/14 Plavix (Clopidogrel Bisulfate) 75 Mg Tablet 1 Tab PO DAILY NEXT DOSE DUE ON 11/05/14 Prilosec (Omeprazole) 40 Mg Capsule.dr 40 Mg PO DAILY MAY TAKE ANY TIME Vitals/I & O Vital Sign - Last 24 Hours 12/27/17 12/27/17 12/27/17 12/27/17 14:45 15:00 15:20 15:42 Temp 97.9 97.9 Pulse 108 Resp 18 B/P (MAP) 147/95 (112) Pulse Ox 96 92 O2 Delivery Room Air Nasal Cannula Nasal Cannula O2 Flow Rate 2.0 2.0 2.0 12/27/17 12/27/17 12/27/17 12/27/17 16:15 16:17 16:24 18:12 Pulse 108 B/P (MAP) 147/95 Pulse Ox 92 92 92 O2 Delivery Nasal Cannula Nasal Cannula Nasal Cannula O2 Flow Rate 2.0 2.0 2.0 12/27/17 12/27/17 12/27/17 12/27/17 18:13 19:00 19:13 19:21 Temp 97.9 97.9 Pulse 111 Resp 22 B/P (MAP) 114/75 (88) Pulse Ox 92 95 92 O2 Delivery Nasal Cannula Room Air Nasal Cannula Nasal Cannula O2 Flow Rate 2.0 2.0 2.0 12/27/17 12/27/17 12/27/17 12/27/17 19:59 20:03 20:36 22:31 Temp 97.7 97.7 Pulse 111 114 Resp 20 B/P (MAP) 114/75 119/79 (92) Pulse Ox 94 94 96 O2 Delivery Room Air Room Air Nasal Cannula 12/28/17 12/28/17 12/28/17 12/28/17 02:49 03:00 03:49 07:00 Temp 97.8 96.4 97.8 96.4 Pulse 109 107 Resp 22 22 B/P (MAP) 134/87 (103) 126/89 (101) Pulse Ox 96 95 95 98 O2 Delivery Nasal Cannula Nasal Cannula Nasal Cannula Nasal Cannula O2 Flow Rate 2.0 2.0 12/28/17 12/28/17 12/28/17 12/28/17 07:19 07:50 11:00 11:05 Pulse 109 110 Resp 22 B/P (MAP) 120/76 (91) 119/82 (94) Pulse Ox 96 95 95 O2 Delivery Nasal Cannula Nasal Cannula Nasal Cannula Nasal Cannula O2 Flow Rate 2.0 2.0 2.0 2.0 12/28/17 12/28/17 12/28/17 12/28/17 11:10 11:20 12:06 12:09 Pulse 109 Resp 22 B/P (MAP) 112/76 (88) Pulse Ox 94 96 O2 Delivery Nasal Cannula Nasal Cannula Nasal Cannula Nasal Cannula O2 Flow Rate 2.0 2.0 2.0 2.0 Intake and Output 12/27/17 12/27/17 12/28/17 15:00 23:00 07:00 Intake Total 1300 ml 1300 ml 1650 ml Balance 1300 ml 1300 ml 1650 ml JORDI CASTREJON MD Dec 28, 2017 13:09
[2017-12-28] MEDS: tiZANidine 4 MG TABLET. PO PRN (15:53)
[2017-12-28] MEDS: VANCOMYCIN PER PHARMACY MC PRN (16:02)
[2017-12-28] MEDS ORDERED: INSULIN GLARGINE 300 UNITS/3 ML INSULN.PEN. SQ SCH (21:00)
[2017-12-28] MEDS: ATORVASTATIN CALCIUM 20 MG TABLET PO SCH (21:20)
--- NOTE | 2017-12-29 00:03 | CONS ---
DATE OF CONSULTATION: 12/28/2017 ROOM: 576. REQUESTING PHYSICIAN: Dr. Elizondo. REASON FOR CONSULTATION: Questionable sepsis. HISTORY OF PRESENT ILLNESS: The patient is a 62-year-old gentleman with a known history of COPD with previous exacerbations, history of pneumonia, coronary artery disease, rheumatoid arthritis and recent history of herpes zoster, who was recently treated for syncope as well as COPD. The patient continues to smoke and over the past several days, had increased shortness of air with a cough that was minimally productive. No blood seen. Denies any fevers or chills, does have occasional sweats. He had a little bit more wheeze. No nausea or vomiting, but has questionable abdominal distention. No dysuria, frequency or urgency. He presented to [facility] on 12/27/2017, had a white blood cell count of 12.3. Cultures were obtained from his blood. Chest x-ray did not show any acute abnormality. He was placed on levofloxacin. He underwent a CT head and neck that showed no significant intracranial stenosis or aneurysm. I was consulted yesterday, he was afebrile, but he did have respiratory rates into the upper 30s. He had a white blood cell count elevation and given his recent hospitalization, I added vancomycin and cefepime. Currently, this morning, the patient is sitting upright on the side of the bed. Said, he had not slept for 3 days, continues to have some shortness of air. 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 He has COPD, pneumonia, history of CVA with peripheral neuropathy, gastroesophageal reflux disease, history of colon perforation, splenomegaly, cirrhosis, depression, osteoarthritis, rheumatoid arthritis, diabetes, history of herpes zoster in his neck. PAST SURGICAL HISTORY: Positive for a pacemaker, appendectomy, cholecystectomy, colon perforation and repair, hernia repair, carpal tunnel, back surgery, prostate surgery. REVIEW OF SYSTEMS: Otherwise negative except as mentioned above. ALLERGIES: No known drug allergies. SOCIAL HISTORY: He continues to smoke. Occasional alcohol. He is and he has a dog at home. FAMILY HISTORY: Positive for hypertension. CURRENT MEDICATIONS: Included vancomycin and cefepime that I instituted. Levofloxacin was started yesterday per primary. He is on albuterol, Eliquis, aspirin, Lipitor, Pulmicort, Coreg, Colace, Cymbalta, Proscar, Neurontin, hydroxychloroquine, insulin, albuterol, Atrovent, metformin, Solu-Medrol q. 8 hours, Protonix, Zoloft, Flomax, Ultram. PHYSICAL EXAMINATION: VITAL SIGNS: He has been afebrile, current temperature is 96.4, pulse 107, respirations 22, blood pressure 126/89. He is on 2 liters nasal cannula, satting 96%. GENERAL: He is sitting upright on the side of bed. He does look tired. HEENT: Pupils equal and reactive. Oral cavity, pharynx is clear. NECK: Supple, no JVD. LUNGS: Had some mild wheeze on the left. HEART: S1, S2. ABDOMEN: Distended, soft, no guarding or rebound. EXTREMITIES: No clubbing or cyanosis. No gross edema. SKIN: Warm to touch without generalized signs of rash. NEUROLOGIC: He responded appropriately to questions. Affect was tired appearing. LABORATORY DATA: White count 10.3, hemoglobin 14.9, platelets 163, 82 segs, 13 bands. Creatinine of 1, glucose was 259. Normal liver function study tests. Radiology reviewed in history of present illness. IMPRESSION: 1. Leukocytosis actually improved today, but on steroids. 2. Acute exacerbation of chronic obstructive pulmonary disease with respiratory rates in the upper 30s yesterday. 3. Diabetes. 4. Ongoing tobacco abuse. 5. History of zoster. RECOMMENDATIONS: For now, continue the levofloxacin. Again, added vancomycin and cefepime on 12/27/2017. Follow up labs and cultures. This was discussed with his . Thank you for allowing me to participate in the patient's care. Should you have any questions, please do not hesitate to contact me. DOREEN CARTER MD DR: MARTA/allison JOB#: [id number] / [id number]
[2017-12-29] MEDS: oxyCODONE IR 5 MG TABLET PO PRN (00:37)
[2017-12-29] MEDS: tiZANidine 4 MG TABLET. PO PRN (00:37)
[2017-12-29] MEDS: IPRATRPIUM/ALBUTEROL 0.5/2.5MG 3 ML NEBU. NEB SCH ×7 (00:44→23:24)
[2017-12-29 02:44] VITALS: BP 124/83
[2017-12-29] MEDS: MORPHINE SULFATE 2 MG/ML VIAL. IV PRN ×3 (06:12→21:00)
[2017-12-29] MEDS: methylPREDNISolone SOD SUCC PF 125 MG/2 ML VIAL. IV SCH ×3 (06:15→21:14)
[2017-12-29] MEDS: CEFEPIME HCL IV Push 1 GM VIAL. IVP SCH ×3 (06:18→23:13)
[2017-12-29 06:30] LABS: BASO % 0 % (0-3); EOS % 0 % (0-3); HEMATOCRIT 42.1 % (39.0-53.0); HEMOGLOBIN 14.1 g/dL (13.0-17.5); LYMPH # 0.5 x10^3/uL (1.0-4.8); LYMPH % 4 % (24-48); MEAN CORPUSCULAR HEMOGLOBIN 31 pg (25-35); MEAN CORPUSCULAR HGB CONC 34 g/dL (31-37); MEAN CORPUSCULAR VOLUME 93 fL (79-100); MONO # 0.6 x10^3/uL (0.0-1.1); MONO % 5 % (0-9); NEUT % 91 % (31-73); PLATELET COUNT 152 x10^3/uL (140-400); RED BLOOD COUNT 4.51 x10^6/uL (4.30-5.70); RED CELL DISTRIBUTION WIDTH 14.9 % (11.5-14.5); WHITE BLOOD COUNT 12.1 x10^3/uL (4.0-11.0)
[2017-12-29 07:00] VITALS: BP 118/75
[2017-12-29 07:03] LABS: CREATININE 1.2 mg/dL (0.7-1.3); POTASSIUM 4.6 mmol/L (3.5-5.1)
[2017-12-29 07:12] LABS: VANC TR 8.4 mcg/mL (10.0-20.0)
[2017-12-29] MEDS: ASPIRIN 325 MG TABLET PO SCH (08:36)
[2017-12-29] MEDS: BENZONATATE 100 MG CAPSULE. PO SCH ×3 (08:36→20:57)
[2017-12-29] MEDS: HYDROXYCHLOROQUINE 200 MG TABLET PO SCH ×2 (08:36→20:57)
[2017-12-29] MEDS: FINASTERIDE 5 MG TABLET. PO SCH (08:36)
[2017-12-29] MEDS: SERTRALINE 50 MG TABLET. PO SCH (08:36)
[2017-12-29] MEDS: GABAPENTIN 300 MG CAPSULE. PO SCH ×3 (08:36→21:14)
[2017-12-29] MEDS: PANTOPRAZOLE 40 MG TABLET.DR. PO SCH (08:36)
[2017-12-29] MEDS: DULoxetine HCL 30 MG CAPSULE.DR PO SCH (08:36)
[2017-12-29] MEDS: INSULIN GLARGINE 300 UNITS/3 ML INSULN.PEN. SQ SCH ×2 (08:55→21:20)
[2017-12-29] MEDS: INSULIN LISPRO 300 UNITS/3 ML INSULN.PEN. SQ SCH ×6 (08:56→17:00)
--- NOTE | 2017-12-29 09:39 | PDOC ---
Infectious Disease Note Subjective Subjective Now has nasal congestion that started yesterday afternoon + BM Still SOA and has not slept No F/C/S/dysuria or rash Vital Sign Vital Signs Vital Signs Date Time Temp Pulse Resp B/P (MAP) Pulse Ox O2 Delivery O2 Flow Rate FiO2 12/29/17 07:00 124 28 118/75 (89) 94 Nasal Cannula 3.0 12/29/17 02:44 98.2 98.2 Physical Exam PHYSICAL EXAM GENERAL: He is in bed. Bed elevated some. He does look tired. HEENT: Pupils equal and reactive. Oral cavity, pharynx is clear. Some sinus congestion NECK: Supple, no JVD. LUNGS: Had some mild wheeze on the left still. On HEART: S1, S2. ABDOMEN: Less distended, soft, no guarding or rebound. EXTREMITIES: No clubbing or cyanosis. No gross edema. SKIN: Warm to touch without generalized signs of rash. NEUROLOGIC: He responded appropriately to questions. Affect was tired appearing. Labs Lab Laboratory Tests Test 12/28/17 11:19 12/28/17 17:04 12/28/17 21:01 12/29/17 05:30 Glucose (Fingerstick) 287 mg/dL (70-99) 238 mg/dL (70-99) 275 mg/dL (70-99) White Blood Count 12.1 x10^3/uL (4.0-11.0) Red Blood Count 4.51 x10^6/uL (4.30-5.70) Hemoglobin 14.1 g/dL (13.0-17.5) Hematocrit 42.1 % (39.0-53.0) Mean Corpuscular Volume 93 fL (79-100) Mean Corpuscular Hemoglobin 31 pg (25-35) Mean Corpuscular Hemoglobin Concent 34 g/dL (31-37) Red Cell Distribution Width 14.9 % (11.5-14.5) Platelet Count 152 x10^3/uL (140-400) Neutrophils (%) (Auto) 91 % (31-73) Lymphocytes (%) (Auto) 4 % (24-48) Monocytes (%) (Auto) 5 % (0-9) Eosinophils (%) (Auto) 0 % (0-3) Basophils (%) (Auto) 0 % (0-3) Neutrophils # (Auto) 11.0 x10^3uL (1.8-7.7) Lymphocytes # (Auto) 0.5 x10^3/uL (1.0-4.8) Monocytes # (Auto) 0.6 x10^3/uL (0.0-1.1) Eosinophils # (Auto) 0.0 x10^3/uL (0.0-0.7) Basophils # (Auto) 0.0 x10^3/uL (0.0-0.2) Sodium Level 142 mmol/L (136-145) Potassium Level 4.6 mmol/L (3.5-5.1) Chloride Level 105 mmol/L (98-107) Carbon Dioxide Level 25 mmol/L (21-32) Anion Gap 12 (6-14) Blood Urea Nitrogen 35 mg/dL (8-26) Creatinine 1.2 mg/dL (0.7-1.3) Estimated GFR (Cockcroft-Gault) 61.0 Glucose Level 288 mg/dL (70-99) Calcium Level 9.0 mg/dL (8.5-10.1) Vancomycin Level Trough 8.4 mcg/mL (10.0-20.0) Vancomycin Last Dose Date 12/28/17 Vancomycin Last Dose Time 1800 Test 12/29/17 08:02 Glucose (Fingerstick) 212 mg/dL (70-99) Micro Microbiology 12/27/17 Blood Culture - Preliminary, Resulted NO GROWTH AFTER 2 DAYS Objective Assessment Leukocytosis - increased today but on Steroids AECOPD Sinus congestion DM Ongoing tobacco abuse H/o Zoster Plan Plan of Care Cont Levoflox/Vanc and Cefepime 12/27 F/u labs and cults Friedens nasal spray D/w Norma - nursing DOREEN CARTER MD Dec 29, 2017 09:39
[2017-12-29 11:00] VITALS: BP 140/97
[2017-12-29] MEDS ORDERED: INSULIN GLARGINE 300 UNITS/3 ML INSULN.PEN. SQ ONE (11:00)
--- NOTE | 2017-12-29 11:27 | PDOC ---
PULMONARY PROGRESS NOTES Subjective persistent cough/ intermittent soa Vitals Vital Signs Date Time Temp Pulse Resp B/P (MAP) Pulse Ox O2 Delivery O2 Flow Rate FiO2 12/29/17 07:00 124 28 118/75 (89) 94 Nasal Cannula 3.0 12/29/17 02:44 98.2 98.2 General: Alert, No acute distress HEENT: Other Lungs: Wheezing (faint) Cardiovascular: S1, S2 Abdomen: Soft, Non-tender, Other Neuro Exam: Alert Extremities: No Edema Labs Laboratory Tests Test 12/27/17 13:30 12/27/17 16:00 12/27/17 16:35 12/27/17 20:24 O2 Saturation 96 % (92-99) Arterial Blood pH 7.33 (7.35-7.45) Arterial Blood pCO2 at Patient Temp 45 mmHg (35-46) Arterial Blood pO2 at Patient Temp 87 mmHg (65-108) Arterial Blood HCO3 23 mmol/L (21-28) Arterial Blood Base Excess -3 mmol/L (-3-3) FiO2 28.0 Lactic Acid Level 1.6 mmol/L (0.4-2.0) Troponin I Quantitative < 0.017 ng/mL (0.000-0.055) Glucose (Fingerstick) 292 mg/dL (70-99) 351 mg/dL (70-99) Test 12/28/17 05:12 12/28/17 07:45 12/28/17 11:19 12/28/17 17:04 White Blood Count 10.3 x10^3/uL (4.0-11.0) Red Blood Count 4.71 x10^6/uL (4.30-5.70) Hemoglobin 14.9 g/dL (13.0-17.5) Hematocrit 43.0 % (39.0-53.0) Mean Corpuscular Volume 91 fL (79-100) Mean Corpuscular Hemoglobin 32 pg (25-35) Mean Corpuscular Hemoglobin Concent 35 g/dL (31-37) Red Cell Distribution Width 15.0 % (11.5-14.5) Platelet Count 163 x10^3/uL (140-400) Neutrophils (%) (Auto) 92 % (31-73) Lymphocytes (%) (Auto) 5 % (24-48) Monocytes (%) (Auto) 3 % (0-9) Eosinophils (%) (Auto) 0 % (0-3) Basophils (%) (Auto) 0 % (0-3) Neutrophils # (Auto) 9.4 x10^3uL (1.8-7.7) Lymphocytes # (Auto) 0.5 x10^3/uL (1.0-4.8) Monocytes # (Auto) 0.3 x10^3/uL (0.0-1.1) Eosinophils # (Auto) 0.0 x10^3/uL (0.0-0.7) Basophils # (Auto) 0.0 x10^3/uL (0.0-0.2) Segmented Neutrophils % 82 % (35-66) Band Neutrophils % 13 % (0-9) Lymphocytes % 5 % (24-48) Platelet Estimate Adequate (ADEQUATE) Anisocytosis Present Sodium Level 135 mmol/L (136-145) Potassium Level 4.5 mmol/L (3.5-5.1) Chloride Level 104 mmol/L (98-107) Carbon Dioxide Level 23 mmol/L (21-32) Anion Gap 8 (6-14) Blood Urea Nitrogen 27 mg/dL (8-26) Creatinine 1.0 mg/dL (0.7-1.3) Estimated GFR (Cockcroft-Gault) 75.2 BUN/Creatinine Ratio 27 (6-20) Glucose Level 259 mg/dL (70-99) Calcium Level 8.8 mg/dL (8.5-10.1) Total Bilirubin 0.5 mg/dL (0.2-1.0) Aspartate Amino Transf (AST/SGOT) 21 U/L (15-37) Alanine Aminotransferase (ALT/SGPT) 30 U/L (16-63) Alkaline Phosphatase 109 U/L (46-116) Total Protein 7.5 g/dL (6.4-8.2) Albumin 3.3 g/dL (3.4-5.0) Albumin/Globulin Ratio 0.8 (1.0-1.7) Glucose (Fingerstick) 260 mg/dL (70-99) 287 mg/dL (70-99) 238 mg/dL (70-99) Test 12/28/17 21:01 12/29/17 05:30 12/29/17 08:02 Glucose (Fingerstick) 275 mg/dL (70-99) 212 mg/dL (70-99) White Blood Count 12.1 x10^3/uL (4.0-11.0) Red Blood Count 4.51 x10^6/uL (4.30-5.70) Hemoglobin 14.1 g/dL (13.0-17.5) Hematocrit 42.1 % (39.0-53.0) Mean Corpuscular Volume 93 fL (79-100) Mean Corpuscular Hemoglobin 31 pg (25-35) Mean Corpuscular Hemoglobin Concent 34 g/dL (31-37) Red Cell Distribution Width 14.9 % (11.5-14.5) Platelet Count 152 x10^3/uL (140-400) Neutrophils (%) (Auto) 91 % (31-73) Lymphocytes (%) (Auto) 4 % (24-48) Monocytes (%) (Auto) 5 % (0-9) Eosinophils (%) (Auto) 0 % (0-3) Basophils (%) (Auto) 0 % (0-3) Neutrophils # (Auto) 11.0 x10^3uL (1.8-7.7) Lymphocytes # (Auto) 0.5 x10^3/uL (1.0-4.8) Monocytes # (Auto) 0.6 x10^3/uL (0.0-1.1) Eosinophils # (Auto) 0.0 x10^3/uL (0.0-0.7) Basophils # (Auto) 0.0 x10^3/uL (0.0-0.2) Sodium Level 142 mmol/L (136-145) Potassium Level 4.6 mmol/L (3.5-5.1) Chloride Level 105 mmol/L (98-107) Carbon Dioxide Level 25 mmol/L (21-32) Anion Gap 12 (6-14) Blood Urea Nitrogen 35 mg/dL (8-26) Creatinine 1.2 mg/dL (0.7-1.3) Estimated GFR (Cockcroft-Gault) 61.0 Glucose Level 288 mg/dL (70-99) Calcium Level 9.0 mg/dL (8.5-10.1) Vancomycin Level Trough 8.4 mcg/mL (10.0-20.0) Vancomycin Last Dose Date 12/28/17 Vancomycin Last Dose Time 1800 Laboratory Tests Test 12/28/17 17:04 12/28/17 21:01 12/29/17 05:30 12/29/17 08:02 Glucose (Fingerstick) 238 mg/dL (70-99) 275 mg/dL (70-99) 212 mg/dL (70-99) White Blood Count 12.1 x10^3/uL (4.0-11.0) Red Blood Count 4.51 x10^6/uL (4.30-5.70) Hemoglobin 14.1 g/dL (13.0-17.5) Hematocrit 42.1 % (39.0-53.0) Mean Corpuscular Volume 93 fL (79-100) Mean Corpuscular Hemoglobin 31 pg (25-35) Mean Corpuscular Hemoglobin Concent 34 g/dL (31-37) Red Cell Distribution Width 14.9 % (11.5-14.5) Platelet Count 152 x10^3/uL (140-400) Neutrophils (%) (Auto) 91 % (31-73) Lymphocytes (%) (Auto) 4 % (24-48) Monocytes (%) (Auto) 5 % (0-9) Eosinophils (%) (Auto) 0 % (0-3) Basophils (%) (Auto) 0 % (0-3) Neutrophils # (Auto) 11.0 x10^3uL (1.8-7.7) Lymphocytes # (Auto) 0.5 x10^3/uL (1.0-4.8) Monocytes # (Auto) 0.6 x10^3/uL (0.0-1.1) Eosinophils # (Auto) 0.0 x10^3/uL (0.0-0.7) Basophils # (Auto) 0.0 x10^3/uL (0.0-0.2) Sodium Level 142 mmol/L (136-145) Potassium Level 4.6 mmol/L (3.5-5.1) Chloride Level 105 mmol/L (98-107) Carbon Dioxide Level 25 mmol/L (21-32) Anion Gap 12 (6-14) Blood Urea Nitrogen 35 mg/dL (8-26) Creatinine 1.2 mg/dL (0.7-1.3) Estimated GFR (Cockcroft-Gault) 61.0 Glucose Level 288 mg/dL (70-99) Calcium Level 9.0 mg/dL (8.5-10.1) Vancomycin Level Trough 8.4 mcg/mL (10.0-20.0) Vancomycin Last Dose Date 12/28/17 Vancomycin Last Dose Time 1800 Medications Active Scripts Medications Dose Route/Sig Max Daily Dose Days Date Category Dose Instructions Oxycodone Hcl 10 Mg Tablet 1 Tab PO QID 12/27/17 Reported Breo Ellipta 200-25 Mcg INH (Fluticasone/Vilanterol) 1 Each Blst.w.dev 1 Each INH 12/27/17 Reported Tresiba Flextouch U-200 (Insulin Degludec) 200 Unit/1 Ml Insuln.pen 80 Unit SQ BID 11/28/17 Reported Tamsulosin Hcl 0.4 Mg Cap.er.24h 1 Cap PO DAILY 11/28/17 Reported Aspirin 325 Mg Tablet 1 Tab PO DAILY 11/28/17 Reported Prilosec Otc (Omeprazole Magnesium) 20 Mg Tablet.dr 1 Tab PO DAILY 11/28/17 Reported Cymbalta (Duloxetine Hcl) 60 Mg Capsule.dr 1 Cap PO DAILY 11/28/17 Reported Eliquis (Apixaban) 5 Mg Tablet 5 Mg PO BID 10/08/16 Rx Hydroxychloroquine Sulfate 200 Mg Tablet 1 Tab PO BID 10/07/16 Reported Finasteride 5 Mg Tablet 1 Tab PO DAILY 10/07/16 Reported Zoloft (Sertraline Hcl) 50 Mg Tablet 1 Tab PO DAILY 10/07/16 Reported Omeprazole 40 Mg Capsule.dr 1 Cap PO DAILY 10/07/16 Reported Metformin Hcl Er (Metformin Hcl) 1,000 Mg Tab.er.24 1,000 Mg PO DAILYWBKFT 10/07/16 Reported NITROGLYCERIN SubLingual (Nitroglycerin) 0.4 Mg Tab.subl 0.4 Mg SL PRN Q5MIN PRN 10/07/16 Reported Breo Ellipta 200-25 Mcg INH (Fluticasone/Vilanterol) 1 Each Blst.w.dev 2 Puff IH DAILY PRN 10/07/16 Reported Atorvastatin Calcium 20 Mg Tablet 20 Mg PO HS 12/17/14 Reported Gabapentin 300 Mg Capsule 300 Mg PO TID 11/03/14 Reported NEXT DOSE DUE AT 2 PM AND AT BEDTIME Carvedilol 3.125 Mg Tablet 1 Tab PO BID 09/25/14 Reported NEXT DOSE DUE WITH SUPPER TODAY Lisinopril 2.5 Mg Tablet 1 Tab PO DAILY 09/25/14 Reported NEXT DOSE DUE ON 11/05/14 Plavix (Clopidogrel Bisulfate) 75 Mg Tablet 1 Tab PO DAILY 09/25/14 Reported NEXT DOSE DUE ON 11/05/14 Prilosec (Omeprazole) 40 Mg Capsule.dr 40 Mg PO DAILY 07/11/13 Reported MAY TAKE ANY TIME Impression . 1. Acute exacerbation of chronic obstructive pulmonary disease in a patient with ongoing tobacco use since 40 years.persistent cough/ intermittent soa/ will order CTA chest 2. Acute hypoxic respiratory failure secondary to acute exacerbation of chronic obstructive pulmonary disease and acute bronchitis. 3. No definite consolidation seen on the chest x-ray. Plan . 1. Discussed with the patient and the the importance of tobacco cessation. 2. Continue present oxygen to keep saturation 92% and above. 3. Continue present bronchodilators. 4. Steroids 5. Antibiotics. 6. Anticoagulation per PCP. 7. CTA chest today 8. We will do PFTs as an outpatient. KAY KNOX MD Dec 29, 2017 11:27
[2017-12-29] MEDS: BUDESONIDE 0.5 MG/2 ML NEBU. NEB SCH ×2 (11:43→20:38)
[2017-12-29] MEDS: traMADol 50 MG TABLET PO PRN (11:45)
[2017-12-29] MEDS ORDERED: IOHEXOL 300 MG/ML 100ML VIAL. IV ONE (11:45)
[2017-12-29] MEDS ORDERED: CONTRAST GIVEN. MC PRN (11:45)
[2017-12-29] MEDS: PROMETH/CODEINE 6.25/10MG 5 ML SYRUP. PO PRN ×2 (11:45→20:58)
[2017-12-29] MEDS: LIDOCAINE (700MG/PATCH) PATCH. TD SCH (11:46)
--- NOTE | 2017-12-29 12:28 | PDOC ---
PROGRESS NOTES Chief Complaint Chief Complaint acute hypoxic resp failure COPD exacerbation acute bronchitis, recurrent dizzy/ lightheaded with h/o orthostatic hypotension H/O CAD WITH stents dm2 on insulin tobacco use disroder, HTN off meds HLD GERD depression BPH marijuana use h/o stroke with mild rt side weakness groin aron dermatitis recent shingles PPM acute on chronic back pain plan: pulm consulted, id consulted, add vanco and cefepime, cont levaquin cont home meds,dc eliquis , plavix and other HTN meds which pt doesnot take add duoneb, solumedrol 125mg iv tid, increase duoneb to q4h, albuterol prn cough meds,add tesslon, cont mucinex, add phenagan with codein check orthostatic bp neg check CTA head neg CT chest today as per pulm increase lantus to 100u bid, increase novolog 15u tid, ssi smoking education done add lidocaine patch for the back pain MRI cancelled by someone. it was to double check the spinal stenosis shown on CT History of Present Illness History of Present Illness ROS: no fever, chills, r chest pain persistent cough and sob. severe back pain, acute on chronic with severe cough very tachynia when seen in the room today, barely can talk hyperglycemia with steroid Vitals Vitals Vital Signs Date Time Temp Pulse Resp B/P (MAP) Pulse Ox O2 Delivery O2 Flow Rate FiO2 12/29/17 11:45 20 2 Nasal Cannula 12/29/17 11:43 3.0 12/29/17 11:00 97.7 109 140/97 (111) 97.7 Physical Exam Physical Exam GENERAL: He is in bed. Bed elevated some. He does look tired. HEENT: Pupils equal and reactive. Oral cavity, pharynx is clear. Some sinus congestion NECK: Supple, no JVD. LUNGS: Had some mild wheeze on the left still. On 02 HEART: S1, S2. ABDOMEN: Less distended, soft, no guarding or rebound. EXTREMITIES: No clubbing or cyanosis. No gross edema. SKIN: Warm to touch without generalized signs of rash. NEUROLOGIC: He responded appropriately to questions. Affect was tired appearing. General: Alert, Oriented X3, Cooperative Heart: Regular rate, Normal S1, Normal S2 Lungs: Wheezing (faint) Abdomen: Normal bowel sounds, Soft Extremities: No clubbing, No cyanosis Skin: No rashes Labs LABS Laboratory Tests Test 12/28/17 17:04 12/28/17 21:01 12/29/17 05:30 12/29/17 08:02 Glucose (Fingerstick) 238 mg/dL (70-99) 275 mg/dL (70-99) 212 mg/dL (70-99) White Blood Count 12.1 x10^3/uL (4.0-11.0) Red Blood Count 4.51 x10^6/uL (4.30-5.70) Hemoglobin 14.1 g/dL (13.0-17.5) Hematocrit 42.1 % (39.0-53.0) Mean Corpuscular Volume 93 fL (79-100) Mean Corpuscular Hemoglobin 31 pg (25-35) Mean Corpuscular Hemoglobin Concent 34 g/dL (31-37) Red Cell Distribution Width 14.9 % (11.5-14.5) Platelet Count 152 x10^3/uL (140-400) Neutrophils (%) (Auto) 91 % (31-73) Lymphocytes (%) (Auto) 4 % (24-48) Monocytes (%) (Auto) 5 % (0-9) Eosinophils (%) (Auto) 0 % (0-3) Basophils (%) (Auto) 0 % (0-3) Neutrophils # (Auto) 11.0 x10^3uL (1.8-7.7) Lymphocytes # (Auto) 0.5 x10^3/uL (1.0-4.8) Monocytes # (Auto) 0.6 x10^3/uL (0.0-1.1) Eosinophils # (Auto) 0.0 x10^3/uL (0.0-0.7) Basophils # (Auto) 0.0 x10^3/uL (0.0-0.2) Sodium Level 142 mmol/L (136-145) Potassium Level 4.6 mmol/L (3.5-5.1) Chloride Level 105 mmol/L (98-107) Carbon Dioxide Level 25 mmol/L (21-32) Anion Gap 12 (6-14) Blood Urea Nitrogen 35 mg/dL (8-26) Creatinine 1.2 mg/dL (0.7-1.3) Estimated GFR (Cockcroft-Gault) 61.0 Glucose Level 288 mg/dL (70-99) Calcium Level 9.0 mg/dL (8.5-10.1) Vancomycin Level Trough 8.4 mcg/mL (10.0-20.0) Vancomycin Last Dose Date 12/28/17 Vancomycin Last Dose Time 1800 Assessment and Plan Assessmemt and Plan Problems Medical Problems: (1) COPD (chronic obstructive pulmonary disease) Status: Acute Comment Review of Relevant I have reviewed the following items bud (where applicable) has been applied. Labs Laboratory Tests Test 12/27/17 13:30 12/27/17 16:00 12/27/17 16:35 12/27/17 20:24 O2 Saturation 96 % (92-99) Arterial Blood pH 7.33 (7.35-7.45) Arterial Blood pCO2 at Patient Temp 45 mmHg (35-46) Arterial Blood pO2 at Patient Temp 87 mmHg (65-108) Arterial Blood HCO3 23 mmol/L (21-28) Arterial Blood Base Excess -3 mmol/L (-3-3) FiO2 28.0 Lactic Acid Level 1.6 mmol/L (0.4-2.0) Troponin I Quantitative < 0.017 ng/mL (0.000-0.055) Glucose (Fingerstick) 292 mg/dL (70-99) 351 mg/dL (70-99) Test 12/28/17 05:12 12/28/17 07:45 12/28/17 11:19 12/28/17 17:04 White Blood Count 10.3 x10^3/uL (4.0-11.0) Red Blood Count 4.71 x10^6/uL (4.30-5.70) Hemoglobin 14.9 g/dL (13.0-17.5) Hematocrit 43.0 % (39.0-53.0) Mean Corpuscular Volume 91 fL (79-100) Mean Corpuscular Hemoglobin 32 pg (25-35) Mean Corpuscular Hemoglobin Concent 35 g/dL (31-37) Red Cell Distribution Width 15.0 % (11.5-14.5) Platelet Count 163 x10^3/uL (140-400) Neutrophils (%) (Auto) 92 % (31-73) Lymphocytes (%) (Auto) 5 % (24-48) Monocytes (%) (Auto) 3 % (0-9) Eosinophils (%) (Auto) 0 % (0-3) Basophils (%) (Auto) 0 % (0-3) Neutrophils # (Auto) 9.4 x10^3uL (1.8-7.7) Lymphocytes # (Auto) 0.5 x10^3/uL (1.0-4.8) Monocytes # (Auto) 0.3 x10^3/uL (0.0-1.1) Eosinophils # (Auto) 0.0 x10^3/uL (0.0-0.7) Basophils # (Auto) 0.0 x10^3/uL (0.0-0.2) Segmented Neutrophils % 82 % (35-66) Band Neutrophils % 13 % (0-9) Lymphocytes % 5 % (24-48) Platelet Estimate Adequate (ADEQUATE) Anisocytosis Present Sodium Level 135 mmol/L (136-145) Potassium Level 4.5 mmol/L (3.5-5.1) Chloride Level 104 mmol/L (98-107) Carbon Dioxide Level 23 mmol/L (21-32) Anion Gap 8 (6-14) Blood Urea Nitrogen 27 mg/dL (8-26) Creatinine 1.0 mg/dL (0.7-1.3) Estimated GFR (Cockcroft-Gault) 75.2 BUN/Creatinine Ratio 27 (6-20) Glucose Level 259 mg/dL (70-99) Calcium Level 8.8 mg/dL (8.5-10.1) Total Bilirubin 0.5 mg/dL (0.2-1.0) Aspartate Amino Transf (AST/SGOT) 21 U/L (15-37) Alanine Aminotransferase (ALT/SGPT) 30 U/L (16-63) Alkaline Phosphatase 109 U/L (46-116) Total Protein 7.5 g/dL (6.4-8.2) Albumin 3.3 g/dL (3.4-5.0) Albumin/Globulin Ratio 0.8 (1.0-1.7) Glucose (Fingerstick) 260 mg/dL (70-99) 287 mg/dL (70-99) 238 mg/dL (70-99) Test 12/28/17 21:01 12/29/17 05:30 12/29/17 08:02 Glucose (Fingerstick) 275 mg/dL (70-99) 212 mg/dL (70-99) White Blood Count 12.1 x10^3/uL (4.0-11.0) Red Blood Count 4.51 x10^6/uL (4.30-5.70) Hemoglobin 14.1 g/dL (13.0-17.5) Hematocrit 42.1 % (39.0-53.0) Mean Corpuscular Volume 93 fL (79-100) Mean Corpuscular Hemoglobin 31 pg (25-35) Mean Corpuscular Hemoglobin Concent 34 g/dL (31-37) Red Cell Distribution Width 14.9 % (11.5-14.5) Platelet Count 152 x10^3/uL (140-400) Neutrophils (%) (Auto) 91 % (31-73) Lymphocytes (%) (Auto) 4 % (24-48) Monocytes (%) (Auto) 5 % (0-9) Eosinophils (%) (Auto) 0 % (0-3) Basophils (%) (Auto) 0 % (0-3) Neutrophils # (Auto) 11.0 x10^3uL (1.8-7.7) Lymphocytes # (Auto) 0.5 x10^3/uL (1.0-4.8) Monocytes # (Auto) 0.6 x10^3/uL (0.0-1.1) Eosinophils # (Auto) 0.0 x10^3/uL (0.0-0.7) Basophils # (Auto) 0.0 x10^3/uL (0.0-0.2) Sodium Level 142 mmol/L (136-145) Potassium Level 4.6 mmol/L (3.5-5.1) Chloride Level 105 mmol/L (98-107) Carbon Dioxide Level 25 mmol/L (21-32) Anion Gap 12 (6-14) Blood Urea Nitrogen 35 mg/dL (8-26) Creatinine 1.2 mg/dL (0.7-1.3) Estimated GFR (Cockcroft-Gault) 61.0 Glucose Level 288 mg/dL (70-99) Calcium Level 9.0 mg/dL (8.5-10.1) Vancomycin Level Trough 8.4 mcg/mL (10.0-20.0) Vancomycin Last Dose Date 12/28/17 Vancomycin Last Dose Time 1800 Laboratory Tests Test 12/28/17 17:04 12/28/17 21:01 12/29/17 05:30 12/29/17 08:02 Glucose (Fingerstick) 238 mg/dL (70-99) 275 mg/dL (70-99) 212 mg/dL (70-99) White Blood Count 12.1 x10^3/uL (4.0-11.0) Red Blood Count 4.51 x10^6/uL (4.30-5.70) Hemoglobin 14.1 g/dL (13.0-17.5) Hematocrit 42.1 % (39.0-53.0) Mean Corpuscular Volume 93 fL (79-100) Mean Corpuscular Hemoglobin 31 pg (25-35) Mean Corpuscular Hemoglobin Concent 34 g/dL (31-37) Red Cell Distribution Width 14.9 % (11.5-14.5) Platelet Count 152 x10^3/uL (140-400) Neutrophils (%) (Auto) 91 % (31-73) Lymphocytes (%) (Auto) 4 % (24-48) Monocytes (%) (Auto) 5 % (0-9) Eosinophils (%) (Auto) 0 % (0-3) Basophils (%) (Auto) 0 % (0-3) Neutrophils # (Auto) 11.0 x10^3uL (1.8-7.7) Lymphocytes # (Auto) 0.5 x10^3/uL (1.0-4.8) Monocytes # (Auto) 0.6 x10^3/uL (0.0-1.1) Eosinophils # (Auto) 0.0 x10^3/uL (0.0-0.7) Basophils # (Auto) 0.0 x10^3/uL (0.0-0.2) Sodium Level 142 mmol/L (136-145) Potassium Level 4.6 mmol/L (3.5-5.1) Chloride Level 105 mmol/L (98-107) Carbon Dioxide Level 25 mmol/L (21-32) Anion Gap 12 (6-14) Blood Urea Nitrogen 35 mg/dL (8-26) Creatinine 1.2 mg/dL (0.7-1.3) Estimated GFR (Cockcroft-Gault) 61.0 Glucose Level 288 mg/dL (70-99) Calcium Level 9.0 mg/dL (8.5-10.1) Vancomycin Level Trough 8.4 mcg/mL (10.0-20.0) Vancomycin Last Dose Date 12/28/17 Vancomycin Last Dose Time 1800 Microbiology 12/27/17 Blood Culture - Preliminary, Resulted NO GROWTH AFTER 2 DAYS Medications Current Medications Methylprednisolone Sodium Succinate (SOLU-Medrol 125MG VIAL) 125 mg 1X ONCE IV Last administered on 12/27/17at 08:52; Start 12/27/17 at 08:30; Stop 12/27/17 at 08:31; Status DC Albuterol/ Ipratropium (Duoneb) 3 ml 1X ONCE NEB Last administered on at 08:42; Start 12/27/17 at 08:30; Stop 12/27/17 at 08:31; Status DC Benzonatate (Tessalon Perle) 100 mg 1X ONCE PO Last administered on 12/27/17at 08:40; Start 12/27/17 at 08:30; Stop 12/27/17 at 08:31; Status DC Morphine Sulfate (Morphine Sulfate) 2 mg 1X ONCE IV Last administered on at 08:55; Start 12/27/17 at 08:30; Stop 12/27/17 at 08:31; Status DC Ondansetron HCl (Zofran) 4 mg 1X ONCE IV Last administered on 12/27/17at 08:53; Start 12/27/17 at 08:30; Stop 12/27/17 at 08:31; Status DC Levofloxacin/ Dextrose 150 ml @ 100 mls/hr 1X ONCE IV Last administered on 12/27/17at 10:12; Start 12/27/17 at 10:00; Stop 12/27/17 at 11:29; Status DC Sodium Chloride 1,000 ml @ 1,000 mls/hr 1X ONCE IV Last administered on at 10:10; Start 12/27/17 at 10:00; Stop 12/27/17 at 10:59; Status DC Albuterol/ Ipratropium (Duoneb) 3 ml 1X ONCE NEB Last administered on at 10:10; Start 12/27/17 at 10:00; Stop 12/27/17 at 10:04; Status DC Ketorolac Tromethamine (Toradol 30mg Vial) 15 mg 1X ONCE IV Last administered on 12/27/17at 10:08; Start 12/27/17 at 10:00; Stop 12/27/17 at 10:04; Status DC Ondansetron HCl (Zofran) 4 mg PRN Q8HRS PRN IV NAUSEA/VOMITING; Start 12/27/17 at 10:15; Stop 12/28/17 at 10:14; Status DC Morphine Sulfate (Morphine Sulfate) 4 mg PRN Q2HR PRN IV PAIN Last administered on 12/27/17at 14:45; Start 12/27/17 at 10:15; Stop 12/28/17 at 10:14; Status DC Acetaminophen (Tylenol) 650 mg PRN Q4HRS PRN PO FEVER; Start 12/27/17 at 10:15; Stop 12/27/17 at 12:20; Status DC Insulin Human Lispro (HumaLOG) 0-9 UNITS TIDWMEALS SQ Last administered on at 08:57; Start 12/27/17 at 12:30 Dextrose (Dextrose 50%-Water Syringe) 12.5 gm PRN Q15MIN PRN IV SEE COMMENTS; Start 12/27/17 at 12:15 Acetaminophen (Tylenol) 650 mg PRN Q6HRS PRN PO FEVER; Start 12/27/17 at 12:15 Ondansetron HCl (Zofran) 4 mg PRN Q6HRS PRN IV NAUSEA/VOMITING 1ST CHOICE; Start 12/27/17 at 12:15 Morphine Sulfate (Morphine Sulfate) 2 mg PRN Q2HR PRN IV MODERATE TO SEVERE PAIN Last administered on 12/29/17at 06:12; Start 12/27/17 at 12:15 Tramadol HCl (Ultram) 50 mg PRN Q6HRS PRN PO MILD TO MODERATE PAIN Last administered on 12/29/17at 11:45; Start 12/27/17 at 12:15 Docusate Sodium (Colace) 100 mg PRN DAILY PRN PO HARD STOOLS; Start 12/27/17 at 12:15 Labetalol HCl (Normodyne Iv Push) 20 mg PRN Q2HR PRN IVP HYPERTENSION, SEE COMMENTS; Start 12/27/17 at 12:15 Albuterol/ Ipratropium (Duoneb) 3 ml RTQID NEB Last administered on 12/28/17at 07 :18; Start 12/27/17 at 16:00; Stop 12/28/17 at 09:49; Status DC Albuterol Sulfate (Ventolin Neb Soln) 2.5 mg PRN Q2HR PRN NEB SHORTNESS OF BREATH; Start 12/27/17 at 12:15 Guaifenesin (Mucinex) 600 mg BID PO Last administered on 12/29/17at 08:36; Start 12/27/17 at 13:00 Methylprednisolone Sodium Succinate (SOLU-Medrol 125MG VIAL) 125 mg Q8HRS IV Last administered on 12/29/17at 06:15; Start 12/27/17 at 14:00 Apixaban (Eliquis) 5 mg BID PO Last administered on 12/27/17 20:36; Start at 21:00; Stop 12/28/17 at 09:49; Status DC Aspirin (Jorge Luis Aspirin) 325 mg DAILY PO Last administered on 12/29/17at 08:36; Start 12/28/17 at 09:00 Atorvastatin Calcium (Lipitor) 20 mg HS PO Last administered on 12/28/17at 21:20 ; Start 12/27/17 at 21:00 Carvedilol (Coreg) 3.125 mg BIDWMEALS PO Last administered on 12/27/17at 20:36; Start 12/27/17 at 21:00; Stop 12/28/17 at 09:49; Status DC Clopidogrel Bisulfate (Plavix) 75 mg DAILY PO Last administered on 12/27/17at 16: 15; Start 12/27/17 at 13:00; Stop 12/28/17 at 09:49; Status DC Finasteride (Proscar) 5 mg DAILY PO Last administered on 12/29/17at 08:36; Start 12/27/17 at 13:00 Nitroglycerin (Nitrostat) 0.4 mg PRN Q5MIN PRN SL CHEST PAIN; Start 12/27/17 at 12:15 Sertraline HCl (Zoloft) 50 mg DAILY PO Last administered on 12/29/17at 08:36; Start 12/28/17 at 09:00 Tamsulosin HCl (Flomax) 0.4 mg DAILY PO Last administered on 12/28/17at 08:33; Start 12/27/17 at 13:00; Stop 12/28/17 at 09:49; Status DC Duloxetine HCl (Cymbalta) 60 mg DAILY PO Last administered on 12/29/17at 08:36; Start 12/27/17 at 14:00 Non-Formulary Medication (Fluticasone/ Vilanterol (Breo Ellipta 200-25 Mcg INH) ) 2 puff DAILY PRN IH prn; Start 12/27/17 at 12:15; Status UNV Gabapentin (Neurontin) 300 mg TID PO Last administered on 12/29/17 08:36; Start 12/27/17 at 14:00 Hydroxychloroquine Sulfate (Plaquenil) 200 mg BID PO Last administered on at 08:36; Start 12/27/17 at 14:00 Insulin Glargine (Lantus) 75 units BID SQ Last administered on 12/28/17at 08:45; Start 12/27/17 at 21:00; Stop 12/28/17 at 09:49; Status DC Lisinopril (Prinivil) 2.5 mg DAILY PO Last administered on 12/27/17at 16:15; Start 12/27/17 at 14:00; Stop 12/28/17 at 09:49; Status DC Metformin HCl (Glucophage Xr) 1,000 mg DAILYWBKFT PO ; Start 01/01/18 at 08:00 Pantoprazole Sodium (Protonix) 40 mg DAILYAC PO Last administered on 12/29/17at 08:36; Start 12/27/17 at 14:00 Levofloxacin/ Dextrose 100 ml @ 100 mls/hr DAILY IV Last administered on at 08:38; Start 12/28/17 at 09:00 Info (Anti-Coagulation Monitoring By Pharmacy) 1 each PRN DAILY PRN MC SEE COMMENTS; Start 12/27/17 at 12:30 Iohexol (Omnipaque 300 Mg/ml) 75 ml 1X ONCE IV Last administered on 12/27/17at 12:30; Start 12/27/17 at 12:30; Stop 12/27/17 at 12:55; Status DC Info (CONTRAST GIVEN -- Rx MONITORING) 1 each PRN DAILY PRN MC SEE COMMENTS; Start 12/27/17 at 13:00; Stop 12/29/17 at 12:59 Budesonide (Pulmicort) 0.5 mg RTBID NEB Last administered on 12/29/17at 11:43; Start 12/27/17 at 20:00 Cefepime HCl (Maxipime) 1 gm Q12HR IVP ; Start 12/27/17 at 17:00; Stop 12/27/17 at 17:00; Status DC Cefepime HCl (Maxipime) 1 gm Q8HRS IVP Last administered on 12/29/17at 06:18; Start 12/27/17 at 17:00 Vancomycin HCl (Vanco Per Pharmacy) 1 each PRN DAILY PRN MC SEE COMMENTS Last administered on 12/28/17at 16:02; Start 12/27/17 at 16:45 Vancomycin HCl 2 gm/Sodium Chloride 500 ml @ 250 mls/hr ONCE ONCE IV Last administered on 12/27/17at 18:13; Start 12/27/17 at 17:00; Stop 12/27/17 at 18:59; Status DC Oxycodone HCl (Roxicodone) 10 mg QID PO Last administered on 12/27/17at 18:13; Start 12/27/17 at 17:30; Stop 12/27/17 at 19:06; Status DC Vancomycin HCl 1.5 gm/Sodium Chloride 500 ml @ 250 mls/hr Q12H IV Last administered on 12/28/17at 18:09; Start 12/28/17 at 06:00 Vancomycin HCl (Vancomycin Trough Level) 1 each 1X ONCE MC ; Start 12/29/17 at 05:30; Stop 12/29/17 at 05:31; Status DC Nicotine (Nicoderm Cq 21mg) 1 patch PRN DAILY PRN TD SMOKING CESSATION Last administered on 12/28/17at 08:35; Start 12/27/17 at 18:45 Oxycodone HCl (Roxicodone) 10 mg PRN QID PRN PO SEVERE PAIN Last administered on 12/29/17at 00:37; Start 12/27/17 at 19:15 Insulin Human Lispro (HumaLOG) 15 units 1X ONCE SQ Last administered on at 21:38; Start 12/27/17 at 21:15; Stop 12/27/17 at 21:16; Status DC Insulin Glargine (Lantus) 10 units 1X ONCE SQ Last administered on 12/28/17at 09 :10; Start 12/28/17 at 09:00; Stop 12/28/17 at 09:01; Status DC Insulin Glargine (Lantus) 85 units BID SQ ; Start 12/28/17 at 21:00; Stop at 21:00; Status DC Albuterol/ Ipratropium (Duoneb) 3 ml Q4HRS NEB Last administered on 12/29/17at 11 :42; Start 12/28/17 at 12:00 Insulin Human Lispro (HumaLOG) 10 units TIDAC SQ Last administered on 12/29/17at 08:56; Start 12/28/17 at 11:30; Stop 12/29/17 at 10:02; Status DC Benzonatate (Tessalon Perle) 100 mg [id number] PO Last administered on 12/29/17at 08: 36; Start 12/28/17 at 11:00 Insulin Glargine (Lantus) 90 units BID SQ Last administered on 12/29/17at 08:55; Start 12/28/17 at 21:00; Stop 12/29/17 at 10:02; Status DC Tizanidine HCl (Zanaflex) 2 mg PRN Q8HRS PRN PO MUSCLE SPASMS Last administered on 12/29/17at 00:37; Start 12/28/17 at 15:15 Sodium Chloride (Saline Mist Nasal) 1 karsten PRN Q1HR PRN NS NASAL CONGESTION; Start 12/29/17 at 09:45 Insulin Glargine (Lantus) 100 units BID SQ ; Start 12/29/17 at 21:00 Insulin Human Lispro (HumaLOG) 15 units TIDAC SQ ; Start 12/29/17 at 11:30 Insulin Glargine (Lantus) 10 units 1X ONCE SQ ; Start 12/29/17 at 11:00; Stop at 11:01; Status DC Lidocaine (Lidoderm) 1 patch DAILY TD Last administered on 12/29/17at 11:46; Start 12/29/17 at 11:00 Miscellaneous (Lidoderm Patch Removal) 1 ea QHS MC ; Start 12/29/17 at 21:00 Promethazine HCl/ Codeine (Phenergan With Codeine) 5 ml PRN Q6HRS PRN PO COUGH Last administered on 12/29/17at 11:45; Start 12/29/17 at 10:00 Iohexol (Omnipaque 300 Mg/ml) 75 ml 1X ONCE IV ; Start 12/29/17 at 11:45; Stop 12/29/17 at 11:46; Status DC Info (CONTRAST GIVEN -- Rx MONITORING) 1 each PRN DAILY PRN MC SEE COMMENTS; Start 12/29/17 at 11:45; Stop 12/31/17 at 11:44 Active Scripts Active Eliquis (Apixaban) 5 Mg Tablet 5 Mg PO BID Reported Oxycodone Hcl 10 Mg Tablet 1 Tab PO QID Breo Ellipta 200-25 Mcg INH (Fluticasone/Vilanterol) 1 Each Blst.w.dev 1 Each INH Tresiba Flextouch U-200 (Insulin Degludec) 200 Unit/1 Ml Insuln.pen 80 Unit SQ BID Tamsulosin Hcl 0.4 Mg Cap.er.24h 1 Cap PO DAILY Aspirin 325 Mg Tablet 1 Tab PO DAILY Prilosec Otc (Omeprazole Magnesium) 20 Mg Tablet. 1 Tab PO DAILY Cymbalta (Duloxetine Hcl) 60 Mg Capsule. 1 Cap PO DAILY Hydroxychloroquine Sulfate 200 Mg Tablet 1 Tab PO BID Finasteride 5 Mg Tablet 1 Tab PO DAILY Zoloft (Sertraline Hcl) 50 Mg Tablet 1 Tab PO DAILY Omeprazole 40 Mg Capsule.dr 1 Cap PO DAILY Metformin Hcl Er (Metformin Hcl) 1,000 Mg Tab.er.24 1,000 Mg PO DAILYWBKFT NITROGLYCERIN SubLingual (Nitroglycerin) 0.4 Mg Tab.subl 0.4 Mg SL PRN Q5MIN PRN Breo Ellipta 200-25 Mcg INH (Fluticasone/Vilanterol) 1 Each Blst.w.dev 2 Puff IH DAILY PRN Atorvastatin Calcium 20 Mg Tablet 20 Mg PO HS Gabapentin 300 Mg Capsule 300 Mg PO TID NEXT DOSE DUE AT 2 PM AND AT BEDTIME Carvedilol 3.125 Mg Tablet 1 Tab PO BID NEXT DOSE DUE WITH SUPPER TODAY Lisinopril 2.5 Mg Tablet 1 Tab PO DAILY NEXT DOSE DUE ON 11/05/14 Plavix (Clopidogrel Bisulfate) 75 Mg Tablet 1 Tab PO DAILY NEXT DOSE DUE ON 11/05/14 Prilosec (Omeprazole) 40 Mg Capsule.dr 40 Mg PO DAILY MAY TAKE ANY TIME Vitals/I & O Vital Sign - Last 24 Hours 12/28/17 12/28/17 12/28/17 12/28/17 13:00 14:35 14:37 15:13 Temp 97.9 97.9 Pulse 102 Resp 22 B/P (MAP) 118/80 (93) Pulse Ox 94 95 O2 Delivery Nasal Cannula Nasal Cannula Nasal Cannula O2 Flow Rate 2.0 2.0 2.0 2.0 12/28/17 12/28/17 12/28/17 12/28/17 17:12 18:08 18:09 19:00 Temp 97.9 97.9 Pulse 113 Resp 19 B/P (MAP) 107/68 (81) Pulse Ox 95 O2 Delivery Nasal Cannula Nasal Cannula Nasal Cannula O2 Flow Rate 2.0 2.0 2.0 2.0 12/28/17 12/28/17 12/28/17 12/29/17 19:45 20:00 22:51 00:37 Temp 97.8 97.8 Pulse 111 Resp 22 22 B/P (MAP) 111/75 (87) Pulse Ox 95 97 O2 Delivery Nasal Cannula Nasal Cannula Nasal Cannula Nasal Cannula O2 Flow Rate 2.0 2.0 2.0 12/29/17 12/29/17 12/29/17 12/29/17 00:44 01:37 02:44 04:27 Temp 98.2 98.2 Pulse 112 Resp 20 23 B/P (MAP) 124/83 (97) Pulse Ox 94 94 94 O2 Delivery Nasal Cannula Nasal Cannula Nasal Cannula Nasal Cannula O2 Flow Rate 2.0 2.0 2.0 12/29/17 12/29/17 12/29/17 12/29/17 06:12 06:42 07:00 11:00 Temp 97.7 97.7 Pulse 124 109 Resp 22 22 28 28 B/P (MAP) 118/75 (89) 140/97 (111) Pulse Ox 94 92 O2 Delivery Nasal Cannula Nasal Cannula Nasal Cannula Nasal Cannula O2 Flow Rate 3.0 2.0 12/29/17 12/29/17 11:43 11:45 Resp 20 Pulse Ox 94 2 O2 Delivery Nasal Cannula Nasal Cannula O2 Flow Rate 3.0 Intake and Output 12/28/17 12/28/17 12/29/17 15:00 23:00 07:00 Intake Total 600 ml 920 ml Balance 600 ml 920 ml JORDI CASTREJON MD Dec 29, 2017 12:28
[2017-12-29] MEDS: VANCOMYCIN 1.5 GM in IV NORMAL SALINE 500ML BAG 500 ML IV SCH (13:13)
--- NOTE | 2017-12-29 14:54 | RAD ---
CTA of the chest with contrast, 12/29/2017: HISTORY: Dyspnea, shortness of breath, cough Multidetector CT imaging was performed following an IV bolus injection of iodinated contrast material. Multiplanar reconstructions were produced including coronal MIP images. The central pulmonary arteries are well opacified and no filling defects are seen to suggest pulmonary emboli. There is mild calcific plaquing of the thoracic aorta without evidence of aneurysm. Moderate coronary artery calcifications are present. A transvenous cardiac pacing device is in place. Several small mediastinal and hilar lymph nodes are present. The largest of these in the mediastinum measure just over 1 cm in short axis dimension and are considered to be of borderline size. There is minimal interlobular septal thickening in the lung bases. There are several small patchy groundglass opacities in both upper lobes. No dense pulmonary consolidation is seen. There is no evidence of pleural fluid. IMPRESSION: 1. No CT evidence of central pulmonary emboli. 2. Mediastinal lymph nodes of borderline size. 3. Minimal patchy bilateral upper lobe groundglass opacities may reflect inflammation, edema or scarring. 4. Moderate coronary artery calcifications. PQRS Compliance Statement: One or more of the following individualized dose reduction techniques were utilized for this examination: 1. Automated exposure control 2. Adjustment of the mA and/or kV according to patient size 3. Use of iterative reconstruction technique Electronically signed by: Héctor Moise MD (12/29/2017 2:50 PM) [facility]
[2017-12-29] MEDS: VANCOMYCIN PER PHARMACY MC PRN (14:58)
[2017-12-29 15:00] VITALS: BP 126/80
[2017-12-29 19:00] VITALS: BP 129/87
[2017-12-29] MEDS: ATORVASTATIN CALCIUM 20 MG TABLET PO SCH (20:57)
[2017-12-29] MEDS: VANCOMYCIN 1.25 GM in IV NORMAL SALINE 250ML 250 ML IV SCH (20:58)
[2017-12-29] MEDS: PATCH REMOVAL. MC SCH (21:00)
[2017-12-29 22:41] VITALS: BP 152/104
[2017-12-30] MEDS: traMADol 50 MG TABLET PO PRN ×2 (02:09→22:00)
[2017-12-30] MEDS: MORPHINE SULFATE 2 MG/ML VIAL. IV PRN ×3 (02:10→14:41)
[2017-12-30] MEDS: tiZANidine 4 MG TABLET. PO PRN ×2 (02:10→14:41)
[2017-12-30] MEDS: PROMETH/CODEINE 6.25/10MG 5 ML SYRUP. PO PRN ×4 (02:23→23:20)
[2017-12-30] MEDS: SODIUM CHLORIDE 0.65% NASAL SPRAY 45ML BOTTLE. NS PRN ×2 (02:24→08:42)
[2017-12-30 03:00] VITALS: BP 135/95
[2017-12-30] MEDS: IPRATRPIUM/ALBUTEROL 0.5/2.5MG 3 ML NEBU. NEB SCH ×5 (04:00→20:28)
[2017-12-30] MEDS: VANCOMYCIN 1.25 GM in IV NORMAL SALINE 250ML 250 ML IV SCH ×2 (04:47→13:00)
[2017-12-30 04:51] LABS: BASO % 0 % (0-3); EOS % 0 % (0-3); HEMATOCRIT 43.2 % (39.0-53.0); HEMOGLOBIN 14.6 g/dL (13.0-17.5); LYMPH # 0.7 x10^3/uL (1.0-4.8); LYMPH % 5 % (24-48); MEAN CORPUSCULAR HEMOGLOBIN 31 pg (25-35); MEAN CORPUSCULAR HGB CONC 34 g/dL (31-37); MEAN CORPUSCULAR VOLUME 92 fL (79-100); MONO # 0.7 x10^3/uL (0.0-1.1); MONO % 5 % (0-9); NEUT # 13.5 x10^3uL (1.8-7.7); NEUT % 90 % (31-73); PLATELET COUNT 171 x10^3/uL (140-400); RED BLOOD COUNT 4.71 x10^6/uL (4.30-5.70); RED CELL DISTRIBUTION WIDTH 15.3 % (11.5-14.5)
[2017-12-30 05:13] LABS: CALCIUM 9.1 mg/dL (8.5-10.1); CREATININE 0.9 mg/dL (0.7-1.3)
[2017-12-30] MEDS: CEFEPIME HCL IV Push 1 GM VIAL. IVP SCH ×3 (06:20→22:00)
[2017-12-30] MEDS: methylPREDNISolone SOD SUCC PF 125 MG/2 ML VIAL. IV SCH ×3 (06:20→22:00)
[2017-12-30 07:00] VITALS: BP 156/103
[2017-12-30] MEDS: BUDESONIDE 0.5 MG/2 ML NEBU. NEB SCH ×2 (07:29→15:23)
--- NOTE | 2017-12-30 07:50 | PDOC ---
Infectious Disease Note Subjective Subjective Better today. Got some sleep + BM Less SOA No F/C/S/dysuria or rash ROS ROS o/w neg Vital Sign Vital Signs Vital Signs Date Time Temp Pulse Resp B/P (MAP) Pulse Ox O2 Delivery O2 Flow Rate FiO2 12/30/17 07:32 91 Room Air 12/30/17 07:00 98.0 106 18 156/103 (120) 98.0 12/30/17 03:00 2.0 Physical Exam PHYSICAL EXAM GENERAL: He is in the chair. NAD and looks less weak HEENT: Pupils equal and reactive. Oral cavity, pharynx is clear. Some sinus congestion NECK: Supple, no JVD. LUNGS: Had some mild wheeze on the left still. Off 02 currently HEART: S1, S2. ABDOMEN: Less distended, soft, no guarding or rebound. EXTREMITIES: No clubbing or cyanosis. No gross edema. SKIN: Warm to touch without generalized signs of rash. NEUROLOGIC: He responded appropriately to questions. Affect was appropriate Labs Lab Laboratory Tests Test 12/29/17 08:02 12/29/17 11:30 12/29/17 16:53 12/29/17 20:06 Glucose (Fingerstick) 212 mg/dL (70-99) 155 mg/dL (70-99) 86 mg/dL (70-99) 95 mg/dL (70-99) Test 12/30/17 04:00 12/30/17 07:07 White Blood Count 15.0 x10^3/uL (4.0-11.0) Red Blood Count 4.71 x10^6/uL (4.30-5.70) Hemoglobin 14.6 g/dL (13.0-17.5) Hematocrit 43.2 % (39.0-53.0) Mean Corpuscular Volume 92 fL (79-100) Mean Corpuscular Hemoglobin 31 pg (25-35) Mean Corpuscular Hemoglobin Concent 34 g/dL (31-37) Red Cell Distribution Width 15.3 % (11.5-14.5) Platelet Count 171 x10^3/uL (140-400) Neutrophils (%) (Auto) 90 % (31-73) Lymphocytes (%) (Auto) 5 % (24-48) Monocytes (%) (Auto) 5 % (0-9) Eosinophils (%) (Auto) 0 % (0-3) Basophils (%) (Auto) 0 % (0-3) Neutrophils # (Auto) 13.5 x10^3uL (1.8-7.7) Lymphocytes # (Auto) 0.7 x10^3/uL (1.0-4.8) Monocytes # (Auto) 0.7 x10^3/uL (0.0-1.1) Eosinophils # (Auto) 0.0 x10^3/uL (0.0-0.7) Basophils # (Auto) 0.0 x10^3/uL (0.0-0.2) Sodium Level 140 mmol/L (136-145) Potassium Level 4.0 mmol/L (3.5-5.1) Chloride Level 105 mmol/L (98-107) Carbon Dioxide Level 25 mmol/L (21-32) Anion Gap 10 (6-14) Blood Urea Nitrogen 32 mg/dL (8-26) Creatinine 0.9 mg/dL (0.7-1.3) Estimated GFR (Cockcroft-Gault) 85.0 Glucose Level 154 mg/dL (70-99) Calcium Level 9.1 mg/dL (8.5-10.1) Glucose (Fingerstick) 110 mg/dL (70-99) Micro CT chest 12/29 IMPRESSION: 1. No CT evidence of central pulmonary emboli. 2. Mediastinal lymph nodes of borderline size. 3. Minimal patchy bilateral upper lobe groundglass opacities may reflect inflammation, edema or scarring. 4. Moderate coronary artery calcifications. Microbiology 12/27/17 Blood Culture - Preliminary, Resulted NO GROWTH AFTER 2 DAYS Objective Assessment Leukocytosis - increased - on Steroids AECOPD -better - CT reviewed Sinus congestion - better DM Ongoing tobacco abuse H/o Zoster Plan Plan of Care Cont Levoflox/Vanc and Cefepime 12/27 F/u labs and cults Cont [place] nasal spray DOREEN CARTER MD Dec 30, 2017 07:50
[2017-12-30] MEDS: FINASTERIDE 5 MG TABLET. PO SCH (08:41)
[2017-12-30] MEDS: BENZONATATE 100 MG CAPSULE. PO SCH ×3 (08:41→21:00)
[2017-12-30] MEDS: GABAPENTIN 300 MG CAPSULE. PO SCH ×3 (08:41→21:00)
[2017-12-30] MEDS: HYDROXYCHLOROQUINE 200 MG TABLET PO SCH ×2 (08:41→21:00)
[2017-12-30] MEDS: DULoxetine HCL 30 MG CAPSULE.DR PO SCH (08:41)
[2017-12-30] MEDS: SERTRALINE 50 MG TABLET. PO SCH (08:41)
[2017-12-30] MEDS: ASPIRIN 325 MG TABLET PO SCH (08:42)
[2017-12-30] MEDS: oxyCODONE IR 5 MG TABLET PO PRN ×2 (08:42→16:59)
[2017-12-30] MEDS: PANTOPRAZOLE 40 MG TABLET.DR. PO SCH (08:42)
[2017-12-30] MEDS: LIDOCAINE (700MG/PATCH) PATCH. TD SCH (08:43)
--- NOTE | 2017-12-30 08:54 | PDOC ---
PULMONARY PROGRESS NOTES Subjective sob is better, cough is better, has nasal congestion, has back pain Vitals Vital Signs Date Time Temp Pulse Resp B/P (MAP) Pulse Ox O2 Delivery O2 Flow Rate FiO2 12/30/17 07:32 91 Room Air 12/30/17 07:00 98.0 106 18 156/103 (120) 98.0 12/30/17 03:00 2.0 ROS: No Nausea, No Chest Pain General: Alert, No acute distress HEENT: Other (nc at perrl nose throat clear) Lungs: Wheezing (faint) Cardiovascular: S1, S2 Abdomen: Soft, Non-tender, Other Neuro Exam: Alert Extremities: No Edema Skin: Warm Labs Laboratory Tests Test 12/28/17 11:19 12/28/17 17:04 12/28/17 21:01 12/29/17 05:30 Glucose (Fingerstick) 287 mg/dL (70-99) 238 mg/dL (70-99) 275 mg/dL (70-99) White Blood Count 12.1 x10^3/uL (4.0-11.0) Red Blood Count 4.51 x10^6/uL (4.30-5.70) Hemoglobin 14.1 g/dL (13.0-17.5) Hematocrit 42.1 % (39.0-53.0) Mean Corpuscular Volume 93 fL (79-100) Mean Corpuscular Hemoglobin 31 pg (25-35) Mean Corpuscular Hemoglobin Concent 34 g/dL (31-37) Red Cell Distribution Width 14.9 % (11.5-14.5) Platelet Count 152 x10^3/uL (140-400) Neutrophils (%) (Auto) 91 % (31-73) Lymphocytes (%) (Auto) 4 % (24-48) Monocytes (%) (Auto) 5 % (0-9) Eosinophils (%) (Auto) 0 % (0-3) Basophils (%) (Auto) 0 % (0-3) Neutrophils # (Auto) 11.0 x10^3uL (1.8-7.7) Lymphocytes # (Auto) 0.5 x10^3/uL (1.0-4.8) Monocytes # (Auto) 0.6 x10^3/uL (0.0-1.1) Eosinophils # (Auto) 0.0 x10^3/uL (0.0-0.7) Basophils # (Auto) 0.0 x10^3/uL (0.0-0.2) Sodium Level 142 mmol/L (136-145) Potassium Level 4.6 mmol/L (3.5-5.1) Chloride Level 105 mmol/L (98-107) Carbon Dioxide Level 25 mmol/L (21-32) Anion Gap 12 (6-14) Blood Urea Nitrogen 35 mg/dL (8-26) Creatinine 1.2 mg/dL (0.7-1.3) Estimated GFR (Cockcroft-Gault) 61.0 Glucose Level 288 mg/dL (70-99) Calcium Level 9.0 mg/dL (8.5-10.1) Vancomycin Level Trough 8.4 mcg/mL (10.0-20.0) Vancomycin Last Dose Date 12/28/17 Vancomycin Last Dose Time 1800 Test 12/29/17 08:02 12/29/17 11:30 12/29/17 16:53 12/29/17 20:06 Glucose (Fingerstick) 212 mg/dL (70-99) 155 mg/dL (70-99) 86 mg/dL (70-99) 95 mg/dL (70-99) Test 12/30/17 04:00 12/30/17 07:07 White Blood Count 15.0 x10^3/uL (4.0-11.0) Red Blood Count 4.71 x10^6/uL (4.30-5.70) Hemoglobin 14.6 g/dL (13.0-17.5) Hematocrit 43.2 % (39.0-53.0) Mean Corpuscular Volume 92 fL (79-100) Mean Corpuscular Hemoglobin 31 pg (25-35) Mean Corpuscular Hemoglobin Concent 34 g/dL (31-37) Red Cell Distribution Width 15.3 % (11.5-14.5) Platelet Count 171 x10^3/uL (140-400) Neutrophils (%) (Auto) 90 % (31-73) Lymphocytes (%) (Auto) 5 % (24-48) Monocytes (%) (Auto) 5 % (0-9) Eosinophils (%) (Auto) 0 % (0-3) Basophils (%) (Auto) 0 % (0-3) Neutrophils # (Auto) 13.5 x10^3uL (1.8-7.7) Lymphocytes # (Auto) 0.7 x10^3/uL (1.0-4.8) Monocytes # (Auto) 0.7 x10^3/uL (0.0-1.1) Eosinophils # (Auto) 0.0 x10^3/uL (0.0-0.7) Basophils # (Auto) 0.0 x10^3/uL (0.0-0.2) Sodium Level 140 mmol/L (136-145) Potassium Level 4.0 mmol/L (3.5-5.1) Chloride Level 105 mmol/L (98-107) Carbon Dioxide Level 25 mmol/L (21-32) Anion Gap 10 (6-14) Blood Urea Nitrogen 32 mg/dL (8-26) Creatinine 0.9 mg/dL (0.7-1.3) Estimated GFR (Cockcroft-Gault) 85.0 Glucose Level 154 mg/dL (70-99) Calcium Level 9.1 mg/dL (8.5-10.1) Glucose (Fingerstick) 110 mg/dL (70-99) Laboratory Tests Test 12/29/17 11:30 12/29/17 16:53 12/29/17 20:06 12/30/17 04:00 Glucose (Fingerstick) 155 mg/dL (70-99) 86 mg/dL (70-99) 95 mg/dL (70-99) White Blood Count 15.0 x10^3/uL (4.0-11.0) Red Blood Count 4.71 x10^6/uL (4.30-5.70) Hemoglobin 14.6 g/dL (13.0-17.5) Hematocrit 43.2 % (39.0-53.0) Mean Corpuscular Volume 92 fL (79-100) Mean Corpuscular Hemoglobin 31 pg (25-35) Mean Corpuscular Hemoglobin Concent 34 g/dL (31-37) Red Cell Distribution Width 15.3 % (11.5-14.5) Platelet Count 171 x10^3/uL (140-400) Neutrophils (%) (Auto) 90 % (31-73) Lymphocytes (%) (Auto) 5 % (24-48) Monocytes (%) (Auto) 5 % (0-9) Eosinophils (%) (Auto) 0 % (0-3) Basophils (%) (Auto) 0 % (0-3) Neutrophils # (Auto) 13.5 x10^3uL (1.8-7.7) Lymphocytes # (Auto) 0.7 x10^3/uL (1.0-4.8) Monocytes # (Auto) 0.7 x10^3/uL (0.0-1.1) Eosinophils # (Auto) 0.0 x10^3/uL (0.0-0.7) Basophils # (Auto) 0.0 x10^3/uL (0.0-0.2) Sodium Level 140 mmol/L (136-145) Potassium Level 4.0 mmol/L (3.5-5.1) Chloride Level 105 mmol/L (98-107) Carbon Dioxide Level 25 mmol/L (21-32) Anion Gap 10 (6-14) Blood Urea Nitrogen 32 mg/dL (8-26) Creatinine 0.9 mg/dL (0.7-1.3) Estimated GFR (Cockcroft-Gault) 85.0 Glucose Level 154 mg/dL (70-99) Calcium Level 9.1 mg/dL (8.5-10.1) Test 12/30/17 07:07 Glucose (Fingerstick) 110 mg/dL (70-99) Medications Active Scripts Medications Dose Route/Sig Max Daily Dose Days Date Category Dose Instructions Oxycodone Hcl 10 Mg Tablet 1 Tab PO QID 12/27/17 Reported Breo Ellipta 200-25 Mcg INH (Fluticasone/Vilanterol) 1 Each Blst.w.dev 1 Each INH 12/27/17 Reported Tresiba Flextouch U-200 (Insulin Degludec) 200 Unit/1 Ml Insuln.pen 80 Unit SQ BID 11/28/17 Reported Tamsulosin Hcl 0.4 Mg Cap.er.24h 1 Cap PO DAILY 11/28/17 Reported Aspirin 325 Mg Tablet 1 Tab PO DAILY 11/28/17 Reported Prilosec Otc (Omeprazole Magnesium) 20 Mg Tablet.dr 1 Tab PO DAILY 11/28/17 Reported Cymbalta (Duloxetine Hcl) 60 Mg Capsule.dr 1 Cap PO DAILY 11/28/17 Reported Eliquis (Apixaban) 5 Mg Tablet 5 Mg PO BID 10/08/16 Rx Hydroxychloroquine Sulfate 200 Mg Tablet 1 Tab PO BID 10/07/16 Reported Finasteride 5 Mg Tablet 1 Tab PO DAILY 10/07/16 Reported Zoloft (Sertraline Hcl) 50 Mg Tablet 1 Tab PO DAILY 10/07/16 Reported Omeprazole 40 Mg Capsule. 1 Cap PO DAILY 10/07/16 Reported Metformin Hcl Er (Metformin Hcl) 1,000 Mg Tab.er.24 1,000 Mg PO DAILYWBKFT 10/07/16 Reported NITROGLYCERIN SubLingual (Nitroglycerin) 0.4 Mg Tab.subl 0.4 Mg SL PRN Q5MIN PRN 10/07/16 Reported Breo Ellipta 200-25 Mcg INH (Fluticasone/Vilanterol) 1 Each Blst.w.dev 2 Puff IH DAILY PRN 10/07/16 Reported Atorvastatin Calcium 20 Mg Tablet 20 Mg PO HS 12/17/14 Reported Gabapentin 300 Mg Capsule 300 Mg PO TID 11/03/14 Reported NEXT DOSE DUE AT 2 PM AND AT BEDTIME Carvedilol 3.125 Mg Tablet 1 Tab PO BID 09/25/14 Reported NEXT DOSE DUE WITH SUPPER TODAY Lisinopril 2.5 Mg Tablet 1 Tab PO DAILY 09/25/14 Reported NEXT DOSE DUE ON 11/05/14 Plavix (Clopidogrel Bisulfate) 75 Mg Tablet 1 Tab PO DAILY 09/25/14 Reported NEXT DOSE DUE ON 11/05/14 Prilosec (Omeprazole) 40 Mg Capsule. 40 Mg PO DAILY 07/11/13 Reported MAY TAKE ANY TIME Comments ct reviewed 1. No CT evidence of central pulmonary emboli. 2. Mediastinal lymph nodes of borderline size. 3. Minimal patchy bilateral upper lobe groundglass opacities may reflect inflammation, edema or scarring. 4. Moderate coronary artery calcifications. Impression . 1. Acute exacerbation of chronic obstructive pulmonary disease in a patient with ongoing tobacco use since 40 years.persistent cough/ intermittent soa/ will order CTA chest 2. Acute hypoxic respiratory failure secondary to acute exacerbation of chronic obstructive pulmonary disease and acute bronchitis. 3. No definite consolidation seen on the chest x-ray. 4. acute bronchitis 4. allergic rhinitis Plan . 1. quit smoking for ever. 2. oxygen titration to keep saturation 92% and above. 3. Continue present bronchodilators. 4. will change solumedrol to 80 q hrs 5. Antibiotics. 6. add flonase. 7. CTA chest reviewed, ct in 3 mo, zander guzman 8. PFTs as an outpatient. discussed w pt and rn ZENAIDA MAGALLANES MD Dec 30, 2017 08:54
[2017-12-30] MEDS: INSULIN LISPRO 300 UNITS/3 ML INSULN.PEN. SQ SCH ×4 (08:58→17:05)
[2017-12-30] MEDS: INSULIN GLARGINE 300 UNITS/3 ML INSULN.PEN. SQ SCH ×2 (08:58→22:04)
[2017-12-30 11:00] VITALS: BP 165/113
[2017-12-30] MEDS: FLUTICASONE 50MCG/NASAL SPRAY 16GM BOTTLE. NS SCH (11:30)
[2017-12-30] MEDS: NICOTINE 21MG PATCH. TD PRN (11:33)
[2017-12-30 12:59] LABS: VANC TR 10.3 mcg/mL (10.0-20.0)
--- NOTE | 2017-12-30 13:27 | PDOC ---
PROGRESS NOTES Chief Complaint Chief Complaint acute hypoxic resp failure COPD exacerbation acute bronchitis, recurrent dizzy/ lightheaded with h/o orthostatic hypotension H/O CAD WITH stents dm2 on insulin tobacco use disroder, HTN off meds HLD GERD depression BPH marijuana use h/o stroke with mild rt side weakness groin aron dermatitis recent shingles PPM acute on chronic back pain plan: pulm consulted, id consulted, add vanco and cefepime, cont levaquin cont home meds,dc eliquis , plavix and other HTN meds which pt doesnot take add duoneb, decrease solumedrol to 80 mg iv tid, increase duoneb to q4h, albuterol prn cough meds,add tesslon, cont mucinex, add phenagan with codein check orthostatic bp neg check CTA head neg CT chest today as per pulm emphysema decrease lantus to 50u bid, dc novolog 15u tid, ssi smoking education done add lidocaine patch for the back pain MRI cancelled by someone. it was to double check the spinal stenosis shown on CT History of Present Illness History of Present Illness ROS: no fever, chills, r chest pain persistent cough and sob, better today severe back pain, acute on chronic with severe cough hyperglycemia with steroid, better now Vitals Vitals Vital Signs Date Time Temp Pulse Resp B/P (MAP) Pulse Ox O2 Delivery O2 Flow Rate FiO2 12/30/17 12:11 Room Air 12/30/17 11:00 98.0 113 18 165/113 (130) 91 98.0 12/30/17 03:00 2.0 Physical Exam Physical Exam GENERAL: He is in the chair. NAD and looks less weak HEENT: Pupils equal and reactive. Oral cavity, pharynx is clear. Some sinus congestion NECK: Supple, no JVD. LUNGS: Had some mild wheeze on the left still. Off 02 currently HEART: S1, S2. ABDOMEN: Less distended, soft, no guarding or rebound. EXTREMITIES: No clubbing or cyanosis. No gross edema. SKIN: Warm to touch without generalized signs of rash. NEUROLOGIC: He responded appropriately to questions. Affect was appropriate General: Alert, Oriented X3, Cooperative Heart: Regular rate, Normal S1, Normal S2 Lungs: Wheezing (bl mild wheezing with some rhonchis) Abdomen: Normal bowel sounds, Soft Extremities: No clubbing, No cyanosis Skin: No rashes Labs LABS Laboratory Tests Test 12/29/17 16:53 12/29/17 20:06 12/30/17 04:00 12/30/17 07:07 Glucose (Fingerstick) 86 mg/dL (70-99) 95 mg/dL (70-99) 110 mg/dL (70-99) White Blood Count 15.0 x10^3/uL (4.0-11.0) Red Blood Count 4.71 x10^6/uL (4.30-5.70) Hemoglobin 14.6 g/dL (13.0-17.5) Hematocrit 43.2 % (39.0-53.0) Mean Corpuscular Volume 92 fL (79-100) Mean Corpuscular Hemoglobin 31 pg (25-35) Mean Corpuscular Hemoglobin Concent 34 g/dL (31-37) Red Cell Distribution Width 15.3 % (11.5-14.5) Platelet Count 171 x10^3/uL (140-400) Neutrophils (%) (Auto) 90 % (31-73) Lymphocytes (%) (Auto) 5 % (24-48) Monocytes (%) (Auto) 5 % (0-9) Eosinophils (%) (Auto) 0 % (0-3) Basophils (%) (Auto) 0 % (0-3) Neutrophils # (Auto) 13.5 x10^3uL (1.8-7.7) Lymphocytes # (Auto) 0.7 x10^3/uL (1.0-4.8) Monocytes # (Auto) 0.7 x10^3/uL (0.0-1.1) Eosinophils # (Auto) 0.0 x10^3/uL (0.0-0.7) Basophils # (Auto) 0.0 x10^3/uL (0.0-0.2) Sodium Level 140 mmol/L (136-145) Potassium Level 4.0 mmol/L (3.5-5.1) Chloride Level 105 mmol/L (98-107) Carbon Dioxide Level 25 mmol/L (21-32) Anion Gap 10 (6-14) Blood Urea Nitrogen 32 mg/dL (8-26) Creatinine 0.9 mg/dL (0.7-1.3) Estimated GFR (Cockcroft-Gault) 85.0 Glucose Level 154 mg/dL (70-99) Calcium Level 9.1 mg/dL (8.5-10.1) Test 12/30/17 11:26 12/30/17 12:38 Glucose (Fingerstick) 166 mg/dL (70-99) Vancomycin Level Trough 10.3 mcg/mL (10.0-20.0) Vancomycin Last Dose Date 12/30/17 Vancomycin Last Dose Time 0500 Assessment and Plan Assessmemt and Plan Problems Medical Problems: (1) COPD (chronic obstructive pulmonary disease) Status: Acute Comment Review of Relevant I have reviewed the following items bud (where applicable) has been applied. Labs Laboratory Tests Test 12/28/17 17:04 12/28/17 21:01 12/29/17 05:30 12/29/17 08:02 Glucose (Fingerstick) 238 mg/dL (70-99) 275 mg/dL (70-99) 212 mg/dL (70-99) White Blood Count 12.1 x10^3/uL (4.0-11.0) Red Blood Count 4.51 x10^6/uL (4.30-5.70) Hemoglobin 14.1 g/dL (13.0-17.5) Hematocrit 42.1 % (39.0-53.0) Mean Corpuscular Volume 93 fL (79-100) Mean Corpuscular Hemoglobin 31 pg (25-35) Mean Corpuscular Hemoglobin Concent 34 g/dL (31-37) Red Cell Distribution Width 14.9 % (11.5-14.5) Platelet Count 152 x10^3/uL (140-400) Neutrophils (%) (Auto) 91 % (31-73) Lymphocytes (%) (Auto) 4 % (24-48) Monocytes (%) (Auto) 5 % (0-9) Eosinophils (%) (Auto) 0 % (0-3) Basophils (%) (Auto) 0 % (0-3) Neutrophils # (Auto) 11.0 x10^3uL (1.8-7.7) Lymphocytes # (Auto) 0.5 x10^3/uL (1.0-4.8) Monocytes # (Auto) 0.6 x10^3/uL (0.0-1.1) Eosinophils # (Auto) 0.0 x10^3/uL (0.0-0.7) Basophils # (Auto) 0.0 x10^3/uL (0.0-0.2) Sodium Level 142 mmol/L (136-145) Potassium Level 4.6 mmol/L (3.5-5.1) Chloride Level 105 mmol/L (98-107) Carbon Dioxide Level 25 mmol/L (21-32) Anion Gap 12 (6-14) Blood Urea Nitrogen 35 mg/dL (8-26) Creatinine 1.2 mg/dL (0.7-1.3) Estimated GFR (Cockcroft-Gault) 61.0 Glucose Level 288 mg/dL (70-99) Calcium Level 9.0 mg/dL (8.5-10.1) Vancomycin Level Trough 8.4 mcg/mL (10.0-20.0) Vancomycin Last Dose Date 12/28/17 Vancomycin Last Dose Time 1800 Test 12/29/17 11:30 12/29/17 16:53 12/29/17 20:06 12/30/17 04:00 Glucose (Fingerstick) 155 mg/dL (70-99) 86 mg/dL (70-99) 95 mg/dL (70-99) White Blood Count 15.0 x10^3/uL (4.0-11.0) Red Blood Count 4.71 x10^6/uL (4.30-5.70) Hemoglobin 14.6 g/dL (13.0-17.5) Hematocrit 43.2 % (39.0-53.0) Mean Corpuscular Volume 92 fL (79-100) Mean Corpuscular Hemoglobin 31 pg (25-35) Mean Corpuscular Hemoglobin Concent 34 g/dL (31-37) Red Cell Distribution Width 15.3 % (11.5-14.5) Platelet Count 171 x10^3/uL (140-400) Neutrophils (%) (Auto) 90 % (31-73) Lymphocytes (%) (Auto) 5 % (24-48) Monocytes (%) (Auto) 5 % (0-9) Eosinophils (%) (Auto) 0 % (0-3) Basophils (%) (Auto) 0 % (0-3) Neutrophils # (Auto) 13.5 x10^3uL (1.8-7.7) Lymphocytes # (Auto) 0.7 x10^3/uL (1.0-4.8) Monocytes # (Auto) 0.7 x10^3/uL (0.0-1.1) Eosinophils # (Auto) 0.0 x10^3/uL (0.0-0.7) Basophils # (Auto) 0.0 x10^3/uL (0.0-0.2) Sodium Level 140 mmol/L (136-145) Potassium Level 4.0 mmol/L (3.5-5.1) Chloride Level 105 mmol/L (98-107) Carbon Dioxide Level 25 mmol/L (21-32) Anion Gap 10 (6-14) Blood Urea Nitrogen 32 mg/dL (8-26) Creatinine 0.9 mg/dL (0.7-1.3) Estimated GFR (Cockcroft-Gault) 85.0 Glucose Level 154 mg/dL (70-99) Calcium Level 9.1 mg/dL (8.5-10.1) Test 12/30/17 07:07 12/30/17 11:26 12/30/17 12:38 Glucose (Fingerstick) 110 mg/dL (70-99) 166 mg/dL (70-99) Vancomycin Level Trough 10.3 mcg/mL (10.0-20.0) Vancomycin Last Dose Date 12/30/17 Vancomycin Last Dose Time 0500 Laboratory Tests Test 12/29/17 16:53 12/29/17 20:06 12/30/17 04:00 12/30/17 07:07 Glucose (Fingerstick) 86 mg/dL (70-99) 95 mg/dL (70-99) 110 mg/dL (70-99) White Blood Count 15.0 x10^3/uL (4.0-11.0) Red Blood Count 4.71 x10^6/uL (4.30-5.70) Hemoglobin 14.6 g/dL (13.0-17.5) Hematocrit 43.2 % (39.0-53.0) Mean Corpuscular Volume 92 fL (79-100) Mean Corpuscular Hemoglobin 31 pg (25-35) Mean Corpuscular Hemoglobin Concent 34 g/dL (31-37) Red Cell Distribution Width 15.3 % (11.5-14.5) Platelet Count 171 x10^3/uL (140-400) Neutrophils (%) (Auto) 90 % (31-73) Lymphocytes (%) (Auto) 5 % (24-48) Monocytes (%) (Auto) 5 % (0-9) Eosinophils (%) (Auto) 0 % (0-3) Basophils (%) (Auto) 0 % (0-3) Neutrophils # (Auto) 13.5 x10^3uL (1.8-7.7) Lymphocytes # (Auto) 0.7 x10^3/uL (1.0-4.8) Monocytes # (Auto) 0.7 x10^3/uL (0.0-1.1) Eosinophils # (Auto) 0.0 x10^3/uL (0.0-0.7) Basophils # (Auto) 0.0 x10^3/uL (0.0-0.2) Sodium Level 140 mmol/L (136-145) Potassium Level 4.0 mmol/L (3.5-5.1) Chloride Level 105 mmol/L (98-107) Carbon Dioxide Level 25 mmol/L (21-32) Anion Gap 10 (6-14) Blood Urea Nitrogen 32 mg/dL (8-26) Creatinine 0.9 mg/dL (0.7-1.3) Estimated GFR (Cockcroft-Gault) 85.0 Glucose Level 154 mg/dL (70-99) Calcium Level 9.1 mg/dL (8.5-10.1) Test 12/30/17 11:26 12/30/17 12:38 Glucose (Fingerstick) 166 mg/dL (70-99) Vancomycin Level Trough 10.3 mcg/mL (10.0-20.0) Vancomycin Last Dose Date 12/30/17 Vancomycin Last Dose Time 0500 Microbiology 12/27/17 Blood Culture - Preliminary, Resulted NO GROWTH AFTER 3 DAYS Medications Current Medications Methylprednisolone Sodium Succinate (SOLU-Medrol 125MG VIAL) 125 mg 1X ONCE IV Last administered on 12/27/17at 08:52; Start 12/27/17 at 08:30; Stop 12/27/17 at 08:31; Status DC Albuterol/ Ipratropium (Duoneb) 3 ml 1X ONCE NEB Last administered on at 08:42; Start 12/27/17 at 08:30; Stop 12/27/17 at 08:31; Status DC Benzonatate (Tessalon Perle) 100 mg 1X ONCE PO Last administered on 12/27/17at 08:40; Start 12/27/17 at 08:30; Stop 12/27/17 at 08:31; Status DC Morphine Sulfate (Morphine Sulfate) 2 mg 1X ONCE IV Last administered on at 08:55; Start 12/27/17 at 08:30; Stop 12/27/17 at 08:31; Status DC Ondansetron HCl (Zofran) 4 mg 1X ONCE IV Last administered on 12/27/17at 08:53; Start 12/27/17 at 08:30; Stop 12/27/17 at 08:31; Status DC Levofloxacin/ Dextrose 150 ml @ 100 mls/hr 1X ONCE IV Last administered on 12/27/17at 10:12; Start 12/27/17 at 10:00; Stop 12/27/17 at 11:29; Status DC Sodium Chloride 1,000 ml @ 1,000 mls/hr 1X ONCE IV Last administered on at 10:10; Start 12/27/17 at 10:00; Stop 12/27/17 at 10:59; Status DC Albuterol/ Ipratropium (Duoneb) 3 ml 1X ONCE NEB Last administered on at 10:10; Start 12/27/17 at 10:00; Stop 12/27/17 at 10:04; Status DC Ketorolac Tromethamine (Toradol 30mg Vial) 15 mg 1X ONCE IV Last administered on 12/27/17at 10:08; Start 12/27/17 at 10:00; Stop 12/27/17 at 10:04; Status DC Ondansetron HCl (Zofran) 4 mg PRN Q8HRS PRN IV NAUSEA/VOMITING; Start 12/27/17 at 10:15; Stop 12/28/17 at 10:14; Status DC Morphine Sulfate (Morphine Sulfate) 4 mg PRN Q2HR PRN IV PAIN Last administered on 12/27/17at 14:45; Start 12/27/17 at 10:15; Stop 12/28/17 at 10:14; Status DC Acetaminophen (Tylenol) 650 mg PRN Q4HRS PRN PO FEVER; Start 12/27/17 at 10:15; Stop 12/27/17 at 12:20; Status DC Insulin Human Lispro (HumaLOG) 0-9 UNITS TIDWMEALS SQ Last administered on at 11:40; Start 12/27/17 at 12:30 Dextrose (Dextrose 50%-Water Syringe) 12.5 gm PRN Q15MIN PRN IV SEE COMMENTS; Start 12/27/17 at 12:15 Acetaminophen (Tylenol) 650 mg PRN Q6HRS PRN PO FEVER Last administered on at 02:10; Start 12/27/17 at 12:15 Ondansetron HCl (Zofran) 4 mg PRN Q6HRS PRN IV NAUSEA/VOMITING 1ST CHOICE; Start 12/27/17 at 12:15 Morphine Sulfate (Morphine Sulfate) 2 mg PRN Q2HR PRN IV MODERATE TO SEVERE PAIN Last administered on 12/30/17at 11:29; Start 12/27/17 at 12:15 Tramadol HCl (Ultram) 50 mg PRN Q6HRS PRN PO MILD TO MODERATE PAIN Last administered on 12/30/17at 02:09; Start 12/27/17 at 12:15 Docusate Sodium (Colace) 100 mg PRN DAILY PRN PO HARD STOOLS; Start 12/27/17 at 12:15 Labetalol HCl (Normodyne Iv Push) 20 mg PRN Q2HR PRN IVP HYPERTENSION, SEE COMMENTS; Start 12/27/17 at 12:15 Albuterol/ Ipratropium (Duoneb) 3 ml RTQID NEB Last administered on 12/28/17at 07 :18; Start 12/27/17 at 16:00; Stop 12/28/17 at 09:49; Status DC Albuterol Sulfate (Ventolin Neb Soln) 2.5 mg PRN Q2HR PRN NEB SHORTNESS OF BREATH; Start 12/27/17 at 12:15 Guaifenesin (Mucinex) 600 mg BID PO Last administered on 12/30/17at 08:41; Start 12/27/17 at 13:00 Methylprednisolone Sodium Succinate (SOLU-Medrol 125MG VIAL) 125 mg Q8HRS IV Last administered on 12/30/17 06:20; Start 12/27/17 at 14:00; Stop 12/30/17 at 08: 55; Status DC Apixaban (Eliquis) 5 mg BID PO Last administered on 12/27/17 20:36; Start at 21:00; Stop 12/28/17 at 09:49; Status DC Aspirin (Jorge Luis Aspirin) 325 mg DAILY PO Last administered on 12/30/17 08:42; Start 12/28/17 at 09:00 Atorvastatin Calcium (Lipitor) 20 mg HS PO Last administered on 12/29/17 20:57 ; Start 12/27/17 at 21:00 Carvedilol (Coreg) 3.125 mg BIDWMEALS PO Last administered on 12/27/17 20:36; Start 12/27/17 at 21:00; Stop 12/28/17 at 09:49; Status DC Clopidogrel Bisulfate (Plavix) 75 mg DAILY PO Last administered on 12/27/17 16: 15; Start 12/27/17 at 13:00; Stop 12/28/17 at 09:49; Status DC Finasteride (Proscar) 5 mg DAILY PO Last administered on 12/30/17 08:41; Start 12/27/17 at 13:00 Nitroglycerin (Nitrostat) 0.4 mg PRN Q5MIN PRN SL CHEST PAIN; Start 12/27/17 at 12:15 Sertraline HCl (Zoloft) 50 mg DAILY PO Last administered on 12/30/17 08:41; Start 12/28/17 at 09:00 Tamsulosin HCl (Flomax) 0.4 mg DAILY PO Last administered on 12/28/17 08:33; Start 12/27/17 at 13:00; Stop 12/28/17 at 09:49; Status DC Duloxetine HCl (Cymbalta) 60 mg DAILY PO Last administered on 12/30/17 08:41; Start 12/27/17 at 14:00 Non-Formulary Medication (Fluticasone/ Vilanterol (Breo Ellipta 200-25 Mcg INH) ) 2 puff DAILY PRN IH prn; Start 12/27/17 at 12:15; Status UNV Gabapentin (Neurontin) 300 mg TID PO Last administered on 12/30/17at 08:41; Start 12/27/17 at 14:00 Hydroxychloroquine Sulfate (Plaquenil) 200 mg BID PO Last administered on at 08:41; Start 12/27/17 at 14:00 Insulin Glargine (Lantus) 75 units BID SQ Last administered on 12/28/17at 08:45; Start 12/27/17 at 21:00; Stop 12/28/17 at 09:49; Status DC Lisinopril (Prinivil) 2.5 mg DAILY PO Last administered on 12/27/17at 16:15; Start 12/27/17 at 14:00; Stop 12/28/17 at 09:49; Status DC Metformin HCl (Glucophage Xr) 1,000 mg DAILYWBKFT PO ; Start 01/01/18 at 08:00 Pantoprazole Sodium (Protonix) 40 mg DAILYAC PO Last administered on 12/30/17at 08:42; Start 12/27/17 at 14:00 Levofloxacin/ Dextrose 100 ml @ 100 mls/hr DAILY IV Last administered on at 08:43; Start 12/28/17 at 09:00 Info (Anti-Coagulation Monitoring By Pharmacy) 1 each PRN DAILY PRN MC SEE COMMENTS; Start 12/27/17 at 12:30; Stop 12/29/17 at 15:03; Status DC Iohexol (Omnipaque 300 Mg/ml) 75 ml 1X ONCE IV Last administered on 12/27/17at 12:30; Start 12/27/17 at 12:30; Stop 12/27/17 at 12:55; Status DC Info (CONTRAST GIVEN -- Rx MONITORING) 1 each PRN DAILY PRN MC SEE COMMENTS; Start 12/27/17 at 13:00; Stop 12/29/17 at 12:59; Status DC Budesonide (Pulmicort) 0.5 mg RTBID NEB Last administered on 12/30/17at 07:29; Start 12/27/17 at 20:00 Cefepime HCl (Maxipime) 1 gm Q12HR IVP ; Start 12/27/17 at 17:00; Stop 12/27/17 at 17:00; Status DC Cefepime HCl (Maxipime) 1 gm Q8HRS IVP Last administered on 12/30/17at 06:20; Start 12/27/17 at 17:00 Vancomycin HCl (Vanco Per Pharmacy) 1 each PRN DAILY PRN MC SEE COMMENTS Last administered on 12/29/17at 14:58; Start 12/27/17 at 16:45 Vancomycin HCl 2 gm/Sodium Chloride 500 ml @ 250 mls/hr ONCE ONCE IV Last administered on 12/27/17at 18:13; Start 12/27/17 at 17:00; Stop 12/27/17 at 18:59; Status DC Oxycodone HCl (Roxicodone) 10 mg QID PO Last administered on 12/27/17at 18:13; Start 12/27/17 at 17:30; Stop 12/27/17 at 19:06; Status DC Vancomycin HCl 1.5 gm/Sodium Chloride 500 ml @ 250 mls/hr Q12H IV Last administered on 12/29/17at 13:13; Start 12/28/17 at 06:00; Stop 12/29/17 at 14:49; Status DC Vancomycin HCl (Vancomycin Trough Level) 1 each 1X ONCE MC ; Start 12/29/17 at 05:30; Stop 12/29/17 at 05:31; Status DC Nicotine (Nicoderm Cq 21mg) 1 patch PRN DAILY PRN TD SMOKING CESSATION Last administered on 12/30/17at 11:33; Start 12/27/17 at 18:45 Oxycodone HCl (Roxicodone) 10 mg PRN QID PRN PO SEVERE PAIN Last administered on 12/30/17at 08:42; Start 12/27/17 at 19:15 Insulin Human Lispro (HumaLOG) 15 units 1X ONCE SQ Last administered on at 21:38; Start 12/27/17 at 21:15; Stop 12/27/17 at 21:16; Status DC Insulin Glargine (Lantus) 10 units 1X ONCE SQ Last administered on 12/28/17at 09 :10; Start 12/28/17 at 09:00; Stop 12/28/17 at 09:01; Status DC Insulin Glargine (Lantus) 85 units BID SQ ; Start 12/28/17 at 21:00; Stop at 21:00; Status DC Albuterol/ Ipratropium (Duoneb) 3 ml Q4HRS NEB Last administered on 12/30/17 11 :20; Start 12/28/17 at 12:00 Insulin Human Lispro (HumaLOG) 10 units TIDAC SQ Last administered on 12/29/17at 08:56; Start 12/28/17 at 11:30; Stop 12/29/17 at 10:02; Status DC Benzonatate (Tessalon Perle) 100 mg [id number] PO Last administered on 12/30/17 08: 41; Start 12/28/17 at 11:00 Insulin Glargine (Lantus) 90 units BID SQ Last administered on 12/29/17 08:55; Start 12/28/17 at 21:00; Stop 12/29/17 at 10:02; Status DC Tizanidine HCl (Zanaflex) 2 mg PRN Q8HRS PRN PO MUSCLE SPASMS Last administered on 12/30/17at 02:10; Start 12/28/17 at 15:15 Sodium Chloride (Saline Mist Nasal) 1 karsten PRN Q1HR PRN NS NASAL CONGESTION Last administered on 12/30/17 08:42; Start 12/29/17 at 09:45 Insulin Glargine (Lantus) 100 units BID SQ Last administered on 12/30/17 08:58 ; Start 12/29/17 at 21:00; Stop 12/30/17 at 10:42; Status DC Insulin Human Lispro (HumaLOG) 15 units TIDAC SQ Last administered on 12/30/17 08:58; Start 12/29/17 at 11:30; Stop 12/30/17 at 10:42; Status DC Insulin Glargine (Lantus) 10 units 1X ONCE SQ ; Start 12/29/17 at 11:00; Stop at 11:01; Status DC Lidocaine (Lidoderm) 1 patch DAILY TD Last administered on 12/30/17at 08:43; Start 12/29/17 at 11:00 Miscellaneous (Lidoderm Patch Removal) 1 ea QHS MC Last administered on at 21:00; Start 12/29/17 at 21:00 Promethazine HCl/ Codeine (Phenergan With Codeine) 5 ml PRN Q6HRS PRN PO COUGH Last administered on 12/30/17at 08:42; Start 12/29/17 at 10:00 Iohexol (Omnipaque 300 Mg/ml) 75 ml 1X ONCE IV Last administered on 12/29/17at 11:45; Start 12/29/17 at 11:45; Stop 12/29/17 at 11:46; Status DC Info (CONTRAST GIVEN -- Rx MONITORING) 1 each PRN DAILY PRN MC SEE COMMENTS; Start 12/29/17 at 11:45; Stop 12/31/17 at 11:44 Vancomycin HCl 1.25 gm/Sodium Chloride 250 ml @ 167 mls/hr Q8H IV Last administered on 12/30/17at 04:47; Start 12/29/17 at 21:00; Stop 12/30/17 at 13:21; Status DC Vancomycin HCl (Vancomycin Trough Level) 1 each 1X ONCE MC Last administered on 12/30/17at 13:14; Start 12/30/17 at 12:30; Stop 12/30/17 at 12:31; Status DC Methylprednisolone Sodium Succinate (SOLU-Medrol 125MG VIAL) 80 mg Q8HRS IV ; Start 12/30/17 at 14:00 Fluticasone Propionate (Flonase) 2 spray DAILY NS Last administered on at 11:30; Start 12/30/17 at 10:00 Insulin Glargine (Lantus) 50 units BID SQ ; Start 12/30/17 at 21:00 Active Scripts Active Eliquis (Apixaban) 5 Mg Tablet 5 Mg PO BID Reported Oxycodone Hcl 10 Mg Tablet 1 Tab PO QID Breo Ellipta 200-25 Mcg INH (Fluticasone/Vilanterol) 1 Each Blst.w.dev 1 Each INH Tresiba Flextouch U-200 (Insulin Degludec) 200 Unit/1 Ml Insuln.pen 80 Unit SQ BID Tamsulosin Hcl 0.4 Mg Cap.er.24h 1 Cap PO DAILY Aspirin 325 Mg Tablet 1 Tab PO DAILY Prilosec Otc (Omeprazole Magnesium) 20 Mg Tablet.dr 1 Tab PO DAILY Cymbalta (Duloxetine Hcl) 60 Mg Capsule.dr 1 Cap PO DAILY Hydroxychloroquine Sulfate 200 Mg Tablet 1 Tab PO BID Finasteride 5 Mg Tablet 1 Tab PO DAILY Zoloft (Sertraline Hcl) 50 Mg Tablet 1 Tab PO DAILY Omeprazole 40 Mg Capsule.dr 1 Cap PO DAILY Metformin Hcl Er (Metformin Hcl) 1,000 Mg Tab.er.24 1,000 Mg PO DAILYWBKFT NITROGLYCERIN SubLingual (Nitroglycerin) 0.4 Mg Tab.subl 0.4 Mg SL PRN Q5MIN PRN Breo Ellipta 200-25 Mcg INH (Fluticasone/Vilanterol) 1 Each Blst.w.dev 2 Puff IH DAILY PRN Atorvastatin Calcium 20 Mg Tablet 20 Mg PO HS Gabapentin 300 Mg Capsule 300 Mg PO TID NEXT DOSE DUE AT 2 PM AND AT BEDTIME Carvedilol 3.125 Mg Tablet 1 Tab PO BID NEXT DOSE DUE WITH SUPPER TODAY Lisinopril 2.5 Mg Tablet 1 Tab PO DAILY NEXT DOSE DUE ON 11/05/14 Plavix (Clopidogrel Bisulfate) 75 Mg Tablet 1 Tab PO DAILY NEXT DOSE DUE ON 11/05/14 Prilosec (Omeprazole) 40 Mg Capsule.dr 40 Mg PO DAILY MAY TAKE ANY TIME Vitals/I & O Vital Sign - Last 24 Hours 12/29/17 12/29/17 12/29/17 12/29/17 15:00 15:16 15:36 16:10 Temp 97.9 97.9 Pulse 102 Resp 22 21 B/P (MAP) 126/80 (95) Pulse Ox 94 100 93 O2 Delivery Nasal Cannula Nasal Cannula Nasal Cannula O2 Flow Rate 2.0 2.0 2.0 2.0 12/29/17 12/29/17 12/29/17 12/29/17 19:00 20:00 20:41 20:42 Temp 97.8 97.8 Pulse 114 Resp 20 B/P (MAP) 129/87 (101) Pulse Ox 94 98 98 O2 Delivery Room Air Nasal Cannula Nasal Cannula Nasal Cannula O2 Flow Rate 2.0 2.0 2.0 12/29/17 12/29/17 12/29/17 12/29/17 21:00 21:30 22:41 23:27 Temp 97.9 97.9 Pulse 114 Resp 22 22 21 B/P (MAP) 152/104 (120) Pulse Ox 92 100 O2 Delivery Room Air Nasal Cannula Nasal Cannula O2 Flow Rate 2.0 12/30/17 12/30/17 12/30/17 12/30/17 02:09 02:10 03:00 07:00 Temp 97.8 98.0 97.8 98.0 Pulse 109 106 Resp 22 22 19 18 B/P (MAP) 135/95 (108) 156/103 (120) Pulse Ox 92 91 O2 Delivery Room Air Room Air Nasal Cannula 3L O2 Flow Rate 2.0 12/30/17 12/30/17 12/30/17 12/30/17 07:32 07:50 08:42 10:00 Pulse Ox 91 O2 Delivery Room Air Room Air Room Air Room Air 12/30/17 12/30/17 12/30/17 12/30/17 11:00 11:21 11:29 12:11 Temp 98.0 98.0 Pulse 113 Resp 18 B/P (MAP) 165/113 (130) Pulse Ox 91 O2 Delivery 3l Room Air Room Air Room Air Intake and Output 12/29/17 12/29/17 12/30/17 15:00 23:00 07:00 Intake Total 870 ml 650 ml Balance 870 ml 650 ml JORDI CASTREJON MD Dec 30, 2017 13:27
[2017-12-30] MEDS: VANCOMYCIN PER PHARMACY MC PRN (13:36)
[2017-12-30] MEDS: VANCOMYCIN 1.5 GM in IV NORMAL SALINE 500ML BAG 500 ML IV SCH ×2 (14:40→22:00)
[2017-12-30 15:00] VITALS: BP 165/106
[2017-12-30 19:00] VITALS: BP 134/94
[2017-12-30] MEDS: ATORVASTATIN CALCIUM 20 MG TABLET PO SCH (21:00)
[2017-12-30] MEDS: PATCH REMOVAL. MC SCH (21:00)
[2017-12-30 23:00] VITALS: BP 145/107
[2017-12-31] VITALS (7 sets, daily range): BP systolic 118–178; BP diastolic 63–116
[2017-12-31] MEDS: IPRATRPIUM/ALBUTEROL 0.5/2.5MG 3 ML NEBU. NEB SCH ×6 (00:12→23:01)
[2017-12-31 05:04] LABS: BASO % 0 % (0-3); EOS % 0 % (0-3); HEMATOCRIT 43.7 % (39.0-53.0); HEMOGLOBIN 14.9 g/dL (13.0-17.5); LYMPH # 0.8 x10^3/uL (1.0-4.8); LYMPH % 4 % (24-48); MEAN CORPUSCULAR HEMOGLOBIN 31 pg (25-35); MEAN CORPUSCULAR HGB CONC 34 g/dL (31-37); MEAN CORPUSCULAR VOLUME 91 fL (79-100); MONO # 1.2 x10^3/uL (0.0-1.1); MONO % 7 % (0-9); NEUT # 15.7 x10^3uL (1.8-7.7); NEUT % 89 % (31-73); PLATELET COUNT 178 x10^3/uL (140-400); RED BLOOD COUNT 4.81 x10^6/uL (4.30-5.70); WHITE BLOOD COUNT 17.8 x10^3/uL (4.0-11.0)
[2017-12-31 05:31] LABS: CALCIUM 8.5 mg/dL (8.5-10.1); CREATININE 0.9 mg/dL (0.7-1.3); POTASSIUM 3.6 mmol/L (3.5-5.1)
[2017-12-31] MEDS: CEFEPIME HCL IV Push 1 GM VIAL. IVP SCH ×3 (05:48→21:23)
[2017-12-31] MEDS: methylPREDNISolone SOD SUCC PF 125 MG/2 ML VIAL. IV SCH ×4 (05:48→23:01)
[2017-12-31] MEDS: VANCOMYCIN 1.5 GM in IV NORMAL SALINE 500ML BAG 500 ML IV SCH ×3 (05:49→21:23)
[2017-12-31] MEDS: MORPHINE SULFATE 2 MG/ML VIAL. IV PRN (06:02)
[2017-12-31] MEDS: BUDESONIDE 0.5 MG/2 ML NEBU. NEB SCH ×2 (07:44→20:05)
[2017-12-31] MEDS: PANTOPRAZOLE 40 MG TABLET.DR. PO SCH ×2 (08:00→16:44)
[2017-12-31] MEDS: INSULIN LISPRO 300 UNITS/3 ML INSULN.PEN. SQ SCH ×3 (08:00→16:48)
[2017-12-31] MEDS: FLUTICASONE 50MCG/NASAL SPRAY 16GM BOTTLE. NS SCH (08:00)
[2017-12-31] MEDS: FINASTERIDE 5 MG TABLET. PO SCH (08:01)
[2017-12-31] MEDS: tiZANidine 4 MG TABLET. PO PRN ×2 (08:01→16:44)
[2017-12-31] MEDS: ASPIRIN 325 MG TABLET PO SCH (08:01)
[2017-12-31] MEDS: GABAPENTIN 300 MG CAPSULE. PO SCH ×3 (08:01→21:09)
[2017-12-31] MEDS: oxyCODONE IR 5 MG TABLET PO PRN ×3 (08:01→21:10)
[2017-12-31] MEDS: HYDROXYCHLOROQUINE 200 MG TABLET PO SCH ×2 (08:01→21:09)
[2017-12-31] MEDS: DULoxetine HCL 30 MG CAPSULE.DR PO SCH (08:01)
[2017-12-31] MEDS: SERTRALINE 50 MG TABLET. PO SCH (08:01)
[2017-12-31] MEDS: PROMETH/CODEINE 6.25/10MG 5 ML SYRUP. PO PRN ×2 (08:03→14:11)
[2017-12-31] MEDS: LIDOCAINE (700MG/PATCH) PATCH. TD SCH (08:03)
--- NOTE | 2017-12-31 08:56 | PDOC ---
PULMONARY PROGRESS NOTES Subjective has more cough, sob, has nasal congestion, feels tight, has gerd symptoms Vitals Vital Signs Date Time Temp Pulse Resp B/P (MAP) Pulse Ox O2 Delivery O2 Flow Rate FiO2 12/31/17 08:01 Nasal Cannula 3.0 12/31/17 07:59 115 178/116 12/31/17 07:44 96 12/31/17 07:00 97.9 22 97.9 ROS: No Nausea, No Chest Pain General: Alert, No acute distress HEENT: Other (nc at perrl nose throat clear) Lungs: Wheezing (bl mild wheezing with some rhonchis) Cardiovascular: S1, S2 Abdomen: Soft, Non-tender, Other Neuro Exam: Alert Extremities: No Edema Skin: Warm Labs Laboratory Tests Test 12/29/17 11:30 12/29/17 16:53 12/29/17 20:06 12/30/17 04:00 Glucose (Fingerstick) 155 mg/dL (70-99) 86 mg/dL (70-99) 95 mg/dL (70-99) White Blood Count 15.0 x10^3/uL (4.0-11.0) Red Blood Count 4.71 x10^6/uL (4.30-5.70) Hemoglobin 14.6 g/dL (13.0-17.5) Hematocrit 43.2 % (39.0-53.0) Mean Corpuscular Volume 92 fL (79-100) Mean Corpuscular Hemoglobin 31 pg (25-35) Mean Corpuscular Hemoglobin Concent 34 g/dL (31-37) Red Cell Distribution Width 15.3 % (11.5-14.5) Platelet Count 171 x10^3/uL (140-400) Neutrophils (%) (Auto) 90 % (31-73) Lymphocytes (%) (Auto) 5 % (24-48) Monocytes (%) (Auto) 5 % (0-9) Eosinophils (%) (Auto) 0 % (0-3) Basophils (%) (Auto) 0 % (0-3) Neutrophils # (Auto) 13.5 x10^3uL (1.8-7.7) Lymphocytes # (Auto) 0.7 x10^3/uL (1.0-4.8) Monocytes # (Auto) 0.7 x10^3/uL (0.0-1.1) Eosinophils # (Auto) 0.0 x10^3/uL (0.0-0.7) Basophils # (Auto) 0.0 x10^3/uL (0.0-0.2) Sodium Level 140 mmol/L (136-145) Potassium Level 4.0 mmol/L (3.5-5.1) Chloride Level 105 mmol/L (98-107) Carbon Dioxide Level 25 mmol/L (21-32) Anion Gap 10 (6-14) Blood Urea Nitrogen 32 mg/dL (8-26) Creatinine 0.9 mg/dL (0.7-1.3) Estimated GFR (Cockcroft-Gault) 85.0 Glucose Level 154 mg/dL (70-99) Calcium Level 9.1 mg/dL (8.5-10.1) Test 12/30/17 07:07 12/30/17 11:26 12/30/17 12:38 12/30/17 16:22 Glucose (Fingerstick) 110 mg/dL (70-99) 166 mg/dL (70-99) 159 mg/dL (70-99) Vancomycin Level Trough 10.3 mcg/mL (10.0-20.0) Vancomycin Last Dose Date 12/30/17 Vancomycin Last Dose Time 0500 Test 12/30/17 21:07 12/31/17 04:20 12/31/17 07:28 12/31/17 07:51 Glucose (Fingerstick) 84 mg/dL (70-99) 59 mg/dL (70-99) 91 mg/dL (70-99) White Blood Count 17.8 x10^3/uL (4.0-11.0) Red Blood Count 4.81 x10^6/uL (4.30-5.70) Hemoglobin 14.9 g/dL (13.0-17.5) Hematocrit 43.7 % (39.0-53.0) Mean Corpuscular Volume 91 fL (79-100) Mean Corpuscular Hemoglobin 31 pg (25-35) Mean Corpuscular Hemoglobin Concent 34 g/dL (31-37) Red Cell Distribution Width 15.0 % (11.5-14.5) Platelet Count 178 x10^3/uL (140-400) Neutrophils (%) (Auto) 89 % (31-73) Lymphocytes (%) (Auto) 4 % (24-48) Monocytes (%) (Auto) 7 % (0-9) Eosinophils (%) (Auto) 0 % (0-3) Basophils (%) (Auto) 0 % (0-3) Neutrophils # (Auto) 15.7 x10^3uL (1.8-7.7) Lymphocytes # (Auto) 0.8 x10^3/uL (1.0-4.8) Monocytes # (Auto) 1.2 x10^3/uL (0.0-1.1) Eosinophils # (Auto) 0.0 x10^3/uL (0.0-0.7) Basophils # (Auto) 0.0 x10^3/uL (0.0-0.2) Sodium Level 142 mmol/L (136-145) Potassium Level 3.6 mmol/L (3.5-5.1) Chloride Level 107 mmol/L (98-107) Carbon Dioxide Level 28 mmol/L (21-32) Anion Gap 7 (6-14) Blood Urea Nitrogen 28 mg/dL (8-26) Creatinine 0.9 mg/dL (0.7-1.3) Estimated GFR (Cockcroft-Gault) 85.0 Glucose Level 67 mg/dL (70-99) Calcium Level 8.5 mg/dL (8.5-10.1) Laboratory Tests Test 12/30/17 11:26 12/30/17 12:38 12/30/17 16:22 12/30/17 21:07 Glucose (Fingerstick) 166 mg/dL (70-99) 159 mg/dL (70-99) 84 mg/dL (70-99) Vancomycin Level Trough 10.3 mcg/mL (10.0-20.0) Vancomycin Last Dose Date 12/30/17 Vancomycin Last Dose Time 0500 Test 12/31/17 04:20 12/31/17 07:28 12/31/17 07:51 White Blood Count 17.8 x10^3/uL (4.0-11.0) Red Blood Count 4.81 x10^6/uL (4.30-5.70) Hemoglobin 14.9 g/dL (13.0-17.5) Hematocrit 43.7 % (39.0-53.0) Mean Corpuscular Volume 91 fL (79-100) Mean Corpuscular Hemoglobin 31 pg (25-35) Mean Corpuscular Hemoglobin Concent 34 g/dL (31-37) Red Cell Distribution Width 15.0 % (11.5-14.5) Platelet Count 178 x10^3/uL (140-400) Neutrophils (%) (Auto) 89 % (31-73) Lymphocytes (%) (Auto) 4 % (24-48) Monocytes (%) (Auto) 7 % (0-9) Eosinophils (%) (Auto) 0 % (0-3) Basophils (%) (Auto) 0 % (0-3) Neutrophils # (Auto) 15.7 x10^3uL (1.8-7.7) Lymphocytes # (Auto) 0.8 x10^3/uL (1.0-4.8) Monocytes # (Auto) 1.2 x10^3/uL (0.0-1.1) Eosinophils # (Auto) 0.0 x10^3/uL (0.0-0.7) Basophils # (Auto) 0.0 x10^3/uL (0.0-0.2) Sodium Level 142 mmol/L (136-145) Potassium Level 3.6 mmol/L (3.5-5.1) Chloride Level 107 mmol/L (98-107) Carbon Dioxide Level 28 mmol/L (21-32) Anion Gap 7 (6-14) Blood Urea Nitrogen 28 mg/dL (8-26) Creatinine 0.9 mg/dL (0.7-1.3) Estimated GFR (Cockcroft-Gault) 85.0 Glucose Level 67 mg/dL (70-99) Calcium Level 8.5 mg/dL (8.5-10.1) Glucose (Fingerstick) 59 mg/dL (70-99) 91 mg/dL (70-99) Medications Active Scripts Medications Dose Route/Sig Max Daily Dose Days Date Category Dose Instructions Oxycodone Hcl 10 Mg Tablet 1 Tab PO QID 12/27/17 Reported Breo Ellipta 200-25 Mcg INH (Fluticasone/Vilanterol) 1 Each Blst.w.dev 1 Each INH 12/27/17 Reported Tresiba Flextouch U-200 (Insulin Degludec) 200 Unit/1 Ml Insuln.pen 80 Unit SQ BID 11/28/17 Reported Tamsulosin Hcl 0.4 Mg Cap.er.24h 1 Cap PO DAILY 11/28/17 Reported Aspirin 325 Mg Tablet 1 Tab PO DAILY 11/28/17 Reported Prilosec Otc (Omeprazole Magnesium) 20 Mg Tablet.dr 1 Tab PO DAILY 11/28/17 Reported Cymbalta (Duloxetine Hcl) 60 Mg Capsule.dr 1 Cap PO DAILY 11/28/17 Reported Eliquis (Apixaban) 5 Mg Tablet 5 Mg PO BID 10/08/16 Rx Hydroxychloroquine Sulfate 200 Mg Tablet 1 Tab PO BID 10/07/16 Reported Finasteride 5 Mg Tablet 1 Tab PO DAILY 10/07/16 Reported Zoloft (Sertraline Hcl) 50 Mg Tablet 1 Tab PO DAILY 10/07/16 Reported Omeprazole 40 Mg Capsule.dr 1 Cap PO DAILY 10/07/16 Reported Metformin Hcl Er (Metformin Hcl) 1,000 Mg Tab.er.24 1,000 Mg PO DAILYWBKFT 10/07/16 Reported NITROGLYCERIN SubLingual (Nitroglycerin) 0.4 Mg Tab.subl 0.4 Mg SL PRN Q5MIN PRN 10/07/16 Reported Breo Ellipta 200-25 Mcg INH (Fluticasone/Vilanterol) 1 Each Blst.w.dev 2 Puff IH DAILY PRN 10/07/16 Reported Atorvastatin Calcium 20 Mg Tablet 20 Mg PO HS 12/17/14 Reported Gabapentin 300 Mg Capsule 300 Mg PO TID 11/03/14 Reported NEXT DOSE DUE AT 2 PM AND AT BEDTIME Carvedilol 3.125 Mg Tablet 1 Tab PO BID 09/25/14 Reported NEXT DOSE DUE WITH SUPPER TODAY Lisinopril 2.5 Mg Tablet 1 Tab PO DAILY 09/25/14 Reported NEXT DOSE DUE ON 11/05/14 Plavix (Clopidogrel Bisulfate) 75 Mg Tablet 1 Tab PO DAILY 09/25/14 Reported NEXT DOSE DUE ON 11/05/14 Prilosec (Omeprazole) 40 Mg Capsule.dr 40 Mg PO DAILY 07/11/13 Reported MAY TAKE ANY TIME Comments ct reviewed 1. No CT evidence of central pulmonary emboli. 2. Mediastinal lymph nodes of borderline size. 3. Minimal patchy bilateral upper lobe groundglass opacities may reflect inflammation, edema or scarring. 4. Moderate coronary artery calcifications. Impression . 1. Acute exacerbation of chronic obstructive pulmonary disease in a patient with ongoing tobacco use since 40 years.persistent cough/ intermittent soa 2. Acute hypoxic respiratory failure secondary to acute exacerbation of chronic obstructive pulmonary disease and acute bronchitis. 3. No definite consolidation seen on the chest x-ray. 4. acute bronchitis 4. allergic rhinitis Plan . 1. quit smoking for ever. 2. oxygen titration to keep saturation 92% and above. 3. Continue present bronchodilators. 4. increase solumedrol to 80 q 6 hrs 5. Antibiotics. 6. cont flonase. add singulair 7. CTA chest reviewed, ct in 3 mo, fu med lad 8. increase protonix to bid PFTs as an outpatient. discussed w pt and rn ZENAIDA MAGALLANES MD Dec 31, 2017 08:55
[2017-12-31] MEDS: INSULIN GLARGINE 300 UNITS/3 ML INSULN.PEN. SQ SCH ×2 (09:00→21:20)
[2017-12-31] MEDS: BENZONATATE 100 MG CAPSULE. PO SCH ×3 (09:58→21:09)
[2017-12-31] MEDS: NICOTINE 21MG PATCH. TD PRN (11:46)
--- NOTE | 2017-12-31 13:02 | PDOC ---
Infectious Disease Note Subjective Subjective Not feeling well c/o sore throat, chest congestion and cough No fevers/chills ROS ROS per HPI otherwise neg Vital Sign Vital Signs Vital Signs Date Time Temp Pulse Resp B/P (MAP) Pulse Ox O2 Delivery O2 Flow Rate FiO2 12/31/17 11:46 Nasal Cannula 3.0 12/31/17 11:00 97.9 92 22 118/63 (81) 93 97.9 Physical Exam PHYSICAL EXAM GENERAL: Sleeping HEENT: Oral cavity, pharynx is clear. Some sinus congestion NECK: Supple, no JVD. LUNGS: Coarse, nonlabored HEART: S1, S2. ABDOMEN: Obese, soft, no guarding or rebound. EXTREMITIES: No clubbing or cyanosis. No gross edema. SKIN: Warm to touch without generalized signs of rash. NEUROLOGIC: Arouses easily to name PIV ok Labs Lab Laboratory Tests Test 12/30/17 16:22 12/30/17 21:07 12/31/17 04:20 12/31/17 07:28 Glucose (Fingerstick) 159 mg/dL (70-99) 84 mg/dL (70-99) 59 mg/dL (70-99) White Blood Count 17.8 x10^3/uL (4.0-11.0) Red Blood Count 4.81 x10^6/uL (4.30-5.70) Hemoglobin 14.9 g/dL (13.0-17.5) Hematocrit 43.7 % (39.0-53.0) Mean Corpuscular Volume 91 fL (79-100) Mean Corpuscular Hemoglobin 31 pg (25-35) Mean Corpuscular Hemoglobin Concent 34 g/dL (31-37) Red Cell Distribution Width 15.0 % (11.5-14.5) Platelet Count 178 x10^3/uL (140-400) Neutrophils (%) (Auto) 89 % (31-73) Lymphocytes (%) (Auto) 4 % (24-48) Monocytes (%) (Auto) 7 % (0-9) Eosinophils (%) (Auto) 0 % (0-3) Basophils (%) (Auto) 0 % (0-3) Neutrophils # (Auto) 15.7 x10^3uL (1.8-7.7) Lymphocytes # (Auto) 0.8 x10^3/uL (1.0-4.8) Monocytes # (Auto) 1.2 x10^3/uL (0.0-1.1) Eosinophils # (Auto) 0.0 x10^3/uL (0.0-0.7) Basophils # (Auto) 0.0 x10^3/uL (0.0-0.2) Sodium Level 142 mmol/L (136-145) Potassium Level 3.6 mmol/L (3.5-5.1) Chloride Level 107 mmol/L (98-107) Carbon Dioxide Level 28 mmol/L (21-32) Anion Gap 7 (6-14) Blood Urea Nitrogen 28 mg/dL (8-26) Creatinine 0.9 mg/dL (0.7-1.3) Estimated GFR (Cockcroft-Gault) 85.0 Glucose Level 67 mg/dL (70-99) Calcium Level 8.5 mg/dL (8.5-10.1) Test 12/31/17 07:51 12/31/17 11:05 Glucose (Fingerstick) 91 mg/dL (70-99) 132 mg/dL (70-99) Micro Microbiology 12/27/17 Blood Culture - Preliminary, Resulted NO GROWTH AFTER 4 DAYS Objective Assessment Leukocytosis - increased - on Steroids AECOPD -better - CT reviewed Sinus congestion - better DM Ongoing tobacco abuse H/o Zoster Plan Plan of Care Vanc, Cefepime (12/27) and Levaquin Trough 10.3 F/u labs and cults Cont [place] nasal spray Monitor constipation but getting better Attending Co-Sign Attending Co-Sign The patient was seen and interviewed as well as examined at the bedside. The chart was reviewed. The case was discussed. Agree with the plan of care. BARI ROUSSEAU APRN Dec 31, 2017 13:02 DOREEN CARTER MD Dec 31, 2017 14:56
[2017-12-31 13:58] LABS: VANC TR 16.3 mcg/mL (10.0-20.0)
[2017-12-31] MEDS: SODIUM CHLORIDE 0.65% NASAL SPRAY 45ML BOTTLE. NS PRN (14:14)
--- NOTE | 2017-12-31 14:32 | PDOC ---
PROGRESS NOTES Chief Complaint Chief Complaint acute hypoxic resp failure COPD exacerbation acute bronchitis, recurrent dizzy/ lightheaded with h/o orthostatic hypotension H/O CAD WITH stents dm2 on insulin tobacco use disroder, HTN off meds HLD GERD depression BPH marijuana use h/o stroke with mild rt side weakness groin aorn dermatitis recent shingles PPM acute on chronic back pain plan: pulm consulted, id consulted, add vanco and cefepime, cont levaquin cont home meds,dc eliquis , plavix and other HTN meds which pt doesnot take add duoneb, increase solumedrol to 80 mg iv q6h, increase duoneb to q4h, albuterol prn cough meds,add tesslon, cont mucinex, add phenagan with codein check orthostatic bp neg check CTA head neg CT chest today as per pulm emphysema decrease lantus to 30u bid, dc novolog 15u tid, ssi smoking education done add lidocaine patch for the back pain MRI cancelled by someone. it was to double check the spinal stenosis shown on CT History of Present Illness History of Present Illness ROS: no fever, chills, r chest pain persistent cough and sob, better yesterday, but worse today again severe back pain, acute on chronic with severe cough hyperglycemia with steroid, now low glucose with insulin decreased Vitals Vitals Vital Signs Date Time Temp Pulse Resp B/P (MAP) Pulse Ox O2 Delivery O2 Flow Rate FiO2 12/31/17 14:11 Room Air 3.0 12/31/17 11:00 97.9 92 22 118/63 (81) 93 97.9 Physical Exam Physical Exam GENERAL: Sleeping HEENT: Oral cavity, pharynx is clear. Some sinus congestion NECK: Supple, no JVD. LUNGS: Coarse, nonlabored HEART: S1, S2. ABDOMEN: Obese, soft, no guarding or rebound. EXTREMITIES: No clubbing or cyanosis. No gross edema. SKIN: Warm to touch without generalized signs of rash. NEUROLOGIC: Arouses easily to name PIV ok General: Alert, Oriented X3, Cooperative Heart: Regular rate, Normal S1, Normal S2 Lungs: Wheezing (bl moderate wheezing with some rhonchis) Abdomen: Normal bowel sounds, Soft Extremities: No clubbing, No cyanosis Skin: No rashes Labs LABS Laboratory Tests Test 12/30/17 16:22 12/30/17 21:07 12/31/17 04:20 12/31/17 07:28 Glucose (Fingerstick) 159 mg/dL (70-99) 84 mg/dL (70-99) 59 mg/dL (70-99) White Blood Count 17.8 x10^3/uL (4.0-11.0) Red Blood Count 4.81 x10^6/uL (4.30-5.70) Hemoglobin 14.9 g/dL (13.0-17.5) Hematocrit 43.7 % (39.0-53.0) Mean Corpuscular Volume 91 fL (79-100) Mean Corpuscular Hemoglobin 31 pg (25-35) Mean Corpuscular Hemoglobin Concent 34 g/dL (31-37) Red Cell Distribution Width 15.0 % (11.5-14.5) Platelet Count 178 x10^3/uL (140-400) Neutrophils (%) (Auto) 89 % (31-73) Lymphocytes (%) (Auto) 4 % (24-48) Monocytes (%) (Auto) 7 % (0-9) Eosinophils (%) (Auto) 0 % (0-3) Basophils (%) (Auto) 0 % (0-3) Neutrophils # (Auto) 15.7 x10^3uL (1.8-7.7) Lymphocytes # (Auto) 0.8 x10^3/uL (1.0-4.8) Monocytes # (Auto) 1.2 x10^3/uL (0.0-1.1) Eosinophils # (Auto) 0.0 x10^3/uL (0.0-0.7) Basophils # (Auto) 0.0 x10^3/uL (0.0-0.2) Sodium Level 142 mmol/L (136-145) Potassium Level 3.6 mmol/L (3.5-5.1) Chloride Level 107 mmol/L (98-107) Carbon Dioxide Level 28 mmol/L (21-32) Anion Gap 7 (6-14) Blood Urea Nitrogen 28 mg/dL (8-26) Creatinine 0.9 mg/dL (0.7-1.3) Estimated GFR (Cockcroft-Gault) 85.0 Glucose Level 67 mg/dL (70-99) Calcium Level 8.5 mg/dL (8.5-10.1) Test 12/31/17 07:51 12/31/17 11:05 12/31/17 13:30 Glucose (Fingerstick) 91 mg/dL (70-99) 132 mg/dL (70-99) Vancomycin Level Trough 16.3 mcg/mL (10.0-20.0) Vancomycin Last Dose Date 12/31/17 Vancomycin Last Dose Time 0600 Assessment and Plan Assessmemt and Plan Problems Medical Problems: (1) COPD (chronic obstructive pulmonary disease) Status: Acute Comment Review of Relevant I have reviewed the following items bud (where applicable) has been applied. Labs Laboratory Tests Test 12/29/17 16:53 12/29/17 20:06 12/30/17 04:00 12/30/17 07:07 Glucose (Fingerstick) 86 mg/dL (70-99) 95 mg/dL (70-99) 110 mg/dL (70-99) White Blood Count 15.0 x10^3/uL (4.0-11.0) Red Blood Count 4.71 x10^6/uL (4.30-5.70) Hemoglobin 14.6 g/dL (13.0-17.5) Hematocrit 43.2 % (39.0-53.0) Mean Corpuscular Volume 92 fL (79-100) Mean Corpuscular Hemoglobin 31 pg (25-35) Mean Corpuscular Hemoglobin Concent 34 g/dL (31-37) Red Cell Distribution Width 15.3 % (11.5-14.5) Platelet Count 171 x10^3/uL (140-400) Neutrophils (%) (Auto) 90 % (31-73) Lymphocytes (%) (Auto) 5 % (24-48) Monocytes (%) (Auto) 5 % (0-9) Eosinophils (%) (Auto) 0 % (0-3) Basophils (%) (Auto) 0 % (0-3) Neutrophils # (Auto) 13.5 x10^3uL (1.8-7.7) Lymphocytes # (Auto) 0.7 x10^3/uL (1.0-4.8) Monocytes # (Auto) 0.7 x10^3/uL (0.0-1.1) Eosinophils # (Auto) 0.0 x10^3/uL (0.0-0.7) Basophils # (Auto) 0.0 x10^3/uL (0.0-0.2) Sodium Level 140 mmol/L (136-145) Potassium Level 4.0 mmol/L (3.5-5.1) Chloride Level 105 mmol/L (98-107) Carbon Dioxide Level 25 mmol/L (21-32) Anion Gap 10 (6-14) Blood Urea Nitrogen 32 mg/dL (8-26) Creatinine 0.9 mg/dL (0.7-1.3) Estimated GFR (Cockcroft-Gault) 85.0 Glucose Level 154 mg/dL (70-99) Calcium Level 9.1 mg/dL (8.5-10.1) Test 12/30/17 11:26 12/30/17 12:38 12/30/17 16:22 12/30/17 21:07 Glucose (Fingerstick) 166 mg/dL (70-99) 159 mg/dL (70-99) 84 mg/dL (70-99) Vancomycin Level Trough 10.3 mcg/mL (10.0-20.0) Vancomycin Last Dose Date 12/30/17 Vancomycin Last Dose Time 0500 Test 12/31/17 04:20 12/31/17 07:28 12/31/17 07:51 12/31/17 11:05 White Blood Count 17.8 x10^3/uL (4.0-11.0) Red Blood Count 4.81 x10^6/uL (4.30-5.70) Hemoglobin 14.9 g/dL (13.0-17.5) Hematocrit 43.7 % (39.0-53.0) Mean Corpuscular Volume 91 fL (79-100) Mean Corpuscular Hemoglobin 31 pg (25-35) Mean Corpuscular Hemoglobin Concent 34 g/dL (31-37) Red Cell Distribution Width 15.0 % (11.5-14.5) Platelet Count 178 x10^3/uL (140-400) Neutrophils (%) (Auto) 89 % (31-73) Lymphocytes (%) (Auto) 4 % (24-48) Monocytes (%) (Auto) 7 % (0-9) Eosinophils (%) (Auto) 0 % (0-3) Basophils (%) (Auto) 0 % (0-3) Neutrophils # (Auto) 15.7 x10^3uL (1.8-7.7) Lymphocytes # (Auto) 0.8 x10^3/uL (1.0-4.8) Monocytes # (Auto) 1.2 x10^3/uL (0.0-1.1) Eosinophils # (Auto) 0.0 x10^3/uL (0.0-0.7) Basophils # (Auto) 0.0 x10^3/uL (0.0-0.2) Sodium Level 142 mmol/L (136-145) Potassium Level 3.6 mmol/L (3.5-5.1) Chloride Level 107 mmol/L (98-107) Carbon Dioxide Level 28 mmol/L (21-32) Anion Gap 7 (6-14) Blood Urea Nitrogen 28 mg/dL (8-26) Creatinine 0.9 mg/dL (0.7-1.3) Estimated GFR (Cockcroft-Gault) 85.0 Glucose Level 67 mg/dL (70-99) Calcium Level 8.5 mg/dL (8.5-10.1) Glucose (Fingerstick) 59 mg/dL (70-99) 91 mg/dL (70-99) 132 mg/dL (70-99) Test 12/31/17 13:30 Vancomycin Level Trough 16.3 mcg/mL (10.0-20.0) Vancomycin Last Dose Date 12/31/17 Vancomycin Last Dose Time 0600 Laboratory Tests Test 12/30/17 16:22 12/30/17 21:07 12/31/17 04:20 12/31/17 07:28 Glucose (Fingerstick) 159 mg/dL (70-99) 84 mg/dL (70-99) 59 mg/dL (70-99) White Blood Count 17.8 x10^3/uL (4.0-11.0) Red Blood Count 4.81 x10^6/uL (4.30-5.70) Hemoglobin 14.9 g/dL (13.0-17.5) Hematocrit 43.7 % (39.0-53.0) Mean Corpuscular Volume 91 fL (79-100) Mean Corpuscular Hemoglobin 31 pg (25-35) Mean Corpuscular Hemoglobin Concent 34 g/dL (31-37) Red Cell Distribution Width 15.0 % (11.5-14.5) Platelet Count 178 x10^3/uL (140-400) Neutrophils (%) (Auto) 89 % (31-73) Lymphocytes (%) (Auto) 4 % (24-48) Monocytes (%) (Auto) 7 % (0-9) Eosinophils (%) (Auto) 0 % (0-3) Basophils (%) (Auto) 0 % (0-3) Neutrophils # (Auto) 15.7 x10^3uL (1.8-7.7) Lymphocytes # (Auto) 0.8 x10^3/uL (1.0-4.8) Monocytes # (Auto) 1.2 x10^3/uL (0.0-1.1) Eosinophils # (Auto) 0.0 x10^3/uL (0.0-0.7) Basophils # (Auto) 0.0 x10^3/uL (0.0-0.2) Sodium Level 142 mmol/L (136-145) Potassium Level 3.6 mmol/L (3.5-5.1) Chloride Level 107 mmol/L (98-107) Carbon Dioxide Level 28 mmol/L (21-32) Anion Gap 7 (6-14) Blood Urea Nitrogen 28 mg/dL (8-26) Creatinine 0.9 mg/dL (0.7-1.3) Estimated GFR (Cockcroft-Gault) 85.0 Glucose Level 67 mg/dL (70-99) Calcium Level 8.5 mg/dL (8.5-10.1) Test 12/31/17 07:51 12/31/17 11:05 12/31/17 13:30 Glucose (Fingerstick) 91 mg/dL (70-99) 132 mg/dL (70-99) Vancomycin Level Trough 16.3 mcg/mL (10.0-20.0) Vancomycin Last Dose Date 12/31/17 Vancomycin Last Dose Time 0600 Microbiology 12/27/17 Blood Culture - Preliminary, Resulted NO GROWTH AFTER 4 DAYS Medications Current Medications Methylprednisolone Sodium Succinate (SOLU-Medrol 125MG VIAL) 125 mg 1X ONCE IV Last administered on 12/27/17at 08:52; Start 12/27/17 at 08:30; Stop 12/27/17 at 08:31; Status DC Albuterol/ Ipratropium (Duoneb) 3 ml 1X ONCE NEB Last administered on at 08:42; Start 12/27/17 at 08:30; Stop 12/27/17 at 08:31; Status DC Benzonatate (Tessalon Perle) 100 mg 1X ONCE PO Last administered on 12/27/17at 08:40; Start 12/27/17 at 08:30; Stop 12/27/17 at 08:31; Status DC Morphine Sulfate (Morphine Sulfate) 2 mg 1X ONCE IV Last administered on at 08:55; Start 12/27/17 at 08:30; Stop 12/27/17 at 08:31; Status DC Ondansetron HCl (Zofran) 4 mg 1X ONCE IV Last administered on 12/27/17at 08:53; Start 12/27/17 at 08:30; Stop 12/27/17 at 08:31; Status DC Levofloxacin/ Dextrose 150 ml @ 100 mls/hr 1X ONCE IV Last administered on 12/27/17at 10:12; Start 12/27/17 at 10:00; Stop 12/27/17 at 11:29; Status DC Sodium Chloride 1,000 ml @ 1,000 mls/hr 1X ONCE IV Last administered on at 10:10; Start 12/27/17 at 10:00; Stop 12/27/17 at 10:59; Status DC Albuterol/ Ipratropium (Duoneb) 3 ml 1X ONCE NEB Last administered on at 10:10; Start 12/27/17 at 10:00; Stop 12/27/17 at 10:04; Status DC Ketorolac Tromethamine (Toradol 30mg Vial) 15 mg 1X ONCE IV Last administered on 12/27/17at 10:08; Start 12/27/17 at 10:00; Stop 12/27/17 at 10:04; Status DC Ondansetron HCl (Zofran) 4 mg PRN Q8HRS PRN IV NAUSEA/VOMITING; Start 12/27/17 at 10:15; Stop 12/28/17 at 10:14; Status DC Morphine Sulfate (Morphine Sulfate) 4 mg PRN Q2HR PRN IV PAIN Last administered on 12/27/17at 14:45; Start 12/27/17 at 10:15; Stop 12/28/17 at 10:14; Status DC Acetaminophen (Tylenol) 650 mg PRN Q4HRS PRN PO FEVER; Start 12/27/17 at 10:15; Stop 12/27/17 at 12:20; Status DC Insulin Human Lispro (HumaLOG) 0-9 UNITS TIDWMEALS SQ Last administered on at 17:05; Start 12/27/17 at 12:30 Dextrose (Dextrose 50%-Water Syringe) 12.5 gm PRN Q15MIN PRN IV SEE COMMENTS; Start 12/27/17 at 12:15 Acetaminophen (Tylenol) 650 mg PRN Q6HRS PRN PO FEVER Last administered on at 02:10; Start 12/27/17 at 12:15 Ondansetron HCl (Zofran) 4 mg PRN Q6HRS PRN IV NAUSEA/VOMITING 1ST CHOICE; Start 12/27/17 at 12:15 Morphine Sulfate (Morphine Sulfate) 2 mg PRN Q2HR PRN IV MODERATE TO SEVERE PAIN Last administered on 12/31/17at 06:02; Start 12/27/17 at 12:15 Tramadol HCl (Ultram) 50 mg PRN Q6HRS PRN PO MILD TO MODERATE PAIN Last administered on 12/30/17at 22:00; Start 12/27/17 at 12:15 Docusate Sodium (Colace) 100 mg PRN DAILY PRN PO HARD STOOLS Last administered on 12/31/17at 06:01; Start 12/27/17 at 12:15 Labetalol HCl (Normodyne Iv Push) 20 mg PRN Q2HR PRN IVP HYPERTENSION, SEE COMMENTS Last administered on 12/31/17at 07:59; Start 12/27/17 at 12:15 Albuterol/ Ipratropium (Duoneb) 3 ml RTQID NEB Last administered on 12/28/17at 07 :18; Start 12/27/17 at 16:00; Stop 12/28/17 at 09:49; Status DC Albuterol Sulfate (Ventolin Neb Soln) 2.5 mg PRN Q2HR PRN NEB SHORTNESS OF BREATH; Start 12/27/17 at 12:15 Guaifenesin (Mucinex) 600 mg BID PO Last administered on 12/31/17 08:01; Start 12/27/17 at 13:00 Methylprednisolone Sodium Succinate (SOLU-Medrol 125MG VIAL) 125 mg Q8HRS IV Last administered on 12/30/17 06:20; Start 12/27/17 at 14:00; Stop 12/30/17 at 08: 55; Status DC Apixaban (Eliquis) 5 mg BID PO Last administered on 12/27/17 20:36; Start at 21:00; Stop 12/28/17 at 09:49; Status DC Aspirin (Jorge Luis Aspirin) 325 mg DAILY PO Last administered on 12/31/17 08:01; Start 12/28/17 at 09:00 Atorvastatin Calcium (Lipitor) 20 mg HS PO Last administered on 12/30/17 21:00 ; Start 12/27/17 at 21:00 Carvedilol (Coreg) 3.125 mg BIDWMEALS PO Last administered on 12/27/17at 20:36; Start 12/27/17 at 21:00; Stop 12/28/17 at 09:49; Status DC Clopidogrel Bisulfate (Plavix) 75 mg DAILY PO Last administered on 12/27/17 16: 15; Start 12/27/17 at 13:00; Stop 12/28/17 at 09:49; Status DC Finasteride (Proscar) 5 mg DAILY PO Last administered on 12/31/17 08:01; Start 12/27/17 at 13:00 Nitroglycerin (Nitrostat) 0.4 mg PRN Q5MIN PRN SL CHEST PAIN; Start 12/27/17 at 12:15 Sertraline HCl (Zoloft) 50 mg DAILY PO Last administered on 12/31/17 08:01; Start 12/28/17 at 09:00 Tamsulosin HCl (Flomax) 0.4 mg DAILY PO Last administered on 12/28/17at 08:33; Start 12/27/17 at 13:00; Stop 12/28/17 at 09:49; Status DC Duloxetine HCl (Cymbalta) 60 mg DAILY PO Last administered on 12/31/17 08:01; Start 12/27/17 at 14:00 Non-Formulary Medication (Fluticasone/ Vilanterol (Breo Ellipta 200-25 Mcg INH) ) 2 puff DAILY PRN IH prn; Start 12/27/17 at 12:15; Status UNV Gabapentin (Neurontin) 300 mg TID PO Last administered on 12/31/17at 14:11; Start 12/27/17 at 14:00 Hydroxychloroquine Sulfate (Plaquenil) 200 mg BID PO Last administered on at 08:01; Start 12/27/17 at 14:00 Insulin Glargine (Lantus) 75 units BID SQ Last administered on 12/28/17at 08:45; Start 12/27/17 at 21:00; Stop 12/28/17 at 09:49; Status DC Lisinopril (Prinivil) 2.5 mg DAILY PO Last administered on 12/27/17at 16:15; Start 12/27/17 at 14:00; Stop 12/28/17 at 09:49; Status DC Metformin HCl (Glucophage Xr) 1,000 mg DAILYWBKFT PO ; Start 01/01/18 at 08:00 Pantoprazole Sodium (Protonix) 40 mg DAILYAC PO Last administered on 12/31/17at 08:00; Start 12/27/17 at 14:00; Stop 12/31/17 at 08:57; Status DC Levofloxacin/ Dextrose 100 ml @ 100 mls/hr DAILY IV Last administered on at 09:58; Start 12/28/17 at 09:00 Info (Anti-Coagulation Monitoring By Pharmacy) 1 each PRN DAILY PRN MC SEE COMMENTS; Start 12/27/17 at 12:30; Stop 12/29/17 at 15:03; Status DC Iohexol (Omnipaque 300 Mg/ml) 75 ml 1X ONCE IV Last administered on 12/27/17at 12:30; Start 12/27/17 at 12:30; Stop 12/27/17 at 12:55; Status DC Info (CONTRAST GIVEN -- Rx MONITORING) 1 each PRN DAILY PRN MC SEE COMMENTS; Start 12/27/17 at 13:00; Stop 12/29/17 at 12:59; Status DC Budesonide (Pulmicort) 0.5 mg RTBID NEB Last administered on 12/31/17at 07:44; Start 12/27/17 at 20:00 Cefepime HCl (Maxipime) 1 gm Q12HR IVP ; Start 12/27/17 at 17:00; Stop 12/27/17 at 17:00; Status DC Cefepime HCl (Maxipime) 1 gm Q8HRS IVP Last administered on 12/31/17 14:14; Start 12/27/17 at 17:00 Vancomycin HCl (Vanco Per Pharmacy) 1 each PRN DAILY PRN MC SEE COMMENTS Last administered on 12/30/17 13:36; Start 12/27/17 at 16:45 Vancomycin HCl 2 gm/Sodium Chloride 500 ml @ 250 mls/hr ONCE ONCE IV Last administered on 12/27/17 18:13; Start 12/27/17 at 17:00; Stop 12/27/17 at 18:59; Status DC Oxycodone HCl (Roxicodone) 10 mg QID PO Last administered on 12/27/17at 18:13; Start 12/27/17 at 17:30; Stop 12/27/17 at 19:06; Status DC Vancomycin HCl 1.5 gm/Sodium Chloride 500 ml @ 250 mls/hr Q12H IV Last administered on 12/29/17at 13:13; Start 12/28/17 at 06:00; Stop 12/29/17 at 14:49; Status DC Vancomycin HCl (Vancomycin Trough Level) 1 each 1X ONCE MC ; Start 12/29/17 at 05:30; Stop 12/29/17 at 05:31; Status DC Nicotine (Nicoderm Cq 21mg) 1 patch PRN DAILY PRN TD SMOKING CESSATION Last administered on 12/31/17 11:46; Start 12/27/17 at 18:45 Oxycodone HCl (Roxicodone) 10 mg PRN QID PRN PO SEVERE PAIN Last administered on 12/31/17at 14:11; Start 12/27/17 at 19:15 Insulin Human Lispro (HumaLOG) 15 units 1X ONCE SQ Last administered on at 21:38; Start 12/27/17 at 21:15; Stop 12/27/17 at 21:16; Status DC Insulin Glargine (Lantus) 10 units 1X ONCE SQ Last administered on 12/28/17at 09 :10; Start 12/28/17 at 09:00; Stop 12/28/17 at 09:01; Status DC Insulin Glargine (Lantus) 85 units BID SQ ; Start 12/28/17 at 21:00; Stop at 21:00; Status DC Albuterol/ Ipratropium (Duoneb) 3 ml Q4HRS NEB Last administered on 12/31/17at 11 :45; Start 12/28/17 at 12:00 Insulin Human Lispro (HumaLOG) 10 units TIDAC SQ Last administered on 12/29/17at 08:56; Start 12/28/17 at 11:30; Stop 12/29/17 at 10:02; Status DC Benzonatate (Tessalon Perle) 100 mg [id number] PO Last administered on 12/31/17at 14: 11; Start 12/28/17 at 11:00 Insulin Glargine (Lantus) 90 units BID SQ Last administered on 12/29/17at 08:55; Start 12/28/17 at 21:00; Stop 12/29/17 at 10:02; Status DC Tizanidine HCl (Zanaflex) 2 mg PRN Q8HRS PRN PO MUSCLE SPASMS Last administered on 12/31/17at 08:01; Start 12/28/17 at 15:15 Sodium Chloride (Saline Mist Nasal) 1 karsten PRN Q1HR PRN NS NASAL CONGESTION Last administered on 12/31/17at 14:14; Start 12/29/17 at 09:45 Insulin Glargine (Lantus) 100 units BID SQ Last administered on 12/30/17at 08:58 ; Start 12/29/17 at 21:00; Stop 12/30/17 at 10:42; Status DC Insulin Human Lispro (HumaLOG) 15 units TIDAC SQ Last administered on 12/30/17at 08:58; Start 12/29/17 at 11:30; Stop 12/30/17 at 10:42; Status DC Insulin Glargine (Lantus) 10 units 1X ONCE SQ ; Start 12/29/17 at 11:00; Stop at 11:01; Status DC Lidocaine (Lidoderm) 1 patch DAILY TD Last administered on 12/31/17 08:03; Start 12/29/17 at 11:00 Miscellaneous (Lidoderm Patch Removal) 1 ea QHS MC Last administered on at 21:00; Start 12/29/17 at 21:00 Promethazine HCl/ Codeine (Phenergan With Codeine) 5 ml PRN Q6HRS PRN PO COUGH Last administered on 12/31/17at 14:11; Start 12/29/17 at 10:00 Iohexol (Omnipaque 300 Mg/ml) 75 ml 1X ONCE IV Last administered on 12/29/17at 11:45; Start 12/29/17 at 11:45; Stop 12/29/17 at 11:46; Status DC Info (CONTRAST GIVEN -- Rx MONITORING) 1 each PRN DAILY PRN MC SEE COMMENTS; Start 12/29/17 at 11:45; Stop 12/31/17 at 11:44; Status DC Vancomycin HCl 1.25 gm/Sodium Chloride 250 ml @ 167 mls/hr Q8H IV Last administered on 12/30/17at 04:47; Start 12/29/17 at 21:00; Stop 12/30/17 at 13:21; Status DC Vancomycin HCl (Vancomycin Trough Level) 1 each 1X ONCE MC Last administered on 12/30/17at 13:14; Start 12/30/17 at 12:30; Stop 12/30/17 at 12:31; Status DC Methylprednisolone Sodium Succinate (SOLU-Medrol 125MG VIAL) 80 mg Q8HRS IV Last administered on 12/31/17at 05:48; Start 12/30/17 at 14:00; Stop 12/31/17 at 08: 57; Status DC Fluticasone Propionate (Flonase) 2 spray DAILY NS Last administered on 08:00; Start 12/30/17 at 10:00 Insulin Glargine (Lantus) 50 units BID SQ Last administered on 12/30/17at 22:04; Start 12/30/17 at 21:00; Stop 12/31/17 at 11:44; Status DC Vancomycin HCl 1.5 gm/Sodium Chloride 500 ml @ 250 mls/hr Q8H IV Last administered on 12/31/17at 14:15; Start 12/30/17 at 14:00 Vancomycin HCl (Vancomycin Trough Level) 1 each 1X ONCE MC Last administered on 12/31/17at 13:30; Start 12/31/17 at 13:30; Stop 12/31/17 at 13:31; Status DC Methylprednisolone Sodium Succinate (SOLU-Medrol 125MG VIAL) 80 mg Q6HRS IV Last administered on 12/31/17at 11:47; Start 12/31/17 at 12:00 Pantoprazole Sodium (Protonix) 40 mg BIDAC PO ; Start 12/31/17 at 16:30 Montelukast Sodium (Singulair) 10 mg QHS PO ; Start 12/31/17 at 21:00 Insulin Glargine (Lantus) 30 units BID SQ ; Start 12/31/17 at 21:00 Active Scripts Active Eliquis (Apixaban) 5 Mg Tablet 5 Mg PO BID Reported Oxycodone Hcl 10 Mg Tablet 1 Tab PO QID Breo Ellipta 200-25 Mcg INH (Fluticasone/Vilanterol) 1 Each Blst.w.dev 1 Each INH Tresiba Flextouch U-200 (Insulin Degludec) 200 Unit/1 Ml Insuln.pen 80 Unit SQ BID Tamsulosin Hcl 0.4 Mg Cap.er.24h 1 Cap PO DAILY Aspirin 325 Mg Tablet 1 Tab PO DAILY Prilosec Otc (Omeprazole Magnesium) 20 Mg Tablet.dr 1 Tab PO DAILY Cymbalta (Duloxetine Hcl) 60 Mg Capsule.dr 1 Cap PO DAILY Hydroxychloroquine Sulfate 200 Mg Tablet 1 Tab PO BID Finasteride 5 Mg Tablet 1 Tab PO DAILY Zoloft (Sertraline Hcl) 50 Mg Tablet 1 Tab PO DAILY Omeprazole 40 Mg Capsule.dr 1 Cap PO DAILY Metformin Hcl Er (Metformin Hcl) 1,000 Mg Tab.er.24 1,000 Mg PO DAILYWBKFT NITROGLYCERIN SubLingual (Nitroglycerin) 0.4 Mg Tab.subl 0.4 Mg SL PRN Q5MIN PRN Breo Ellipta 200-25 Mcg INH (Fluticasone/Vilanterol) 1 Each Blst.w.dev 2 Puff IH DAILY PRN Atorvastatin Calcium 20 Mg Tablet 20 Mg PO HS Gabapentin 300 Mg Capsule 300 Mg PO TID NEXT DOSE DUE AT 2 PM AND AT BEDTIME Carvedilol 3.125 Mg Tablet 1 Tab PO BID NEXT DOSE DUE WITH SUPPER TODAY Lisinopril 2.5 Mg Tablet 1 Tab PO DAILY NEXT DOSE DUE ON 11/05/14 Plavix (Clopidogrel Bisulfate) 75 Mg Tablet 1 Tab PO DAILY NEXT DOSE DUE ON 11/05/14 Prilosec (Omeprazole) 40 Mg Capsule.dr 40 Mg PO DAILY MAY TAKE ANY TIME Vitals/I & O Vital Sign - Last 24 Hours 12/30/17 12/30/17 12/30/17 12/30/17 14:41 15:00 15:25 16:59 Temp 98.0 98.0 Pulse 115 Resp 18 B/P (MAP) 165/106 (125) Pulse Ox 90 O2 Delivery Room Air 3L Room Air Room Air 12/30/17 12/30/17 12/30/17 12/30/17 19:00 20:00 20:29 22:00 Temp 98.0 98.0 Pulse 110 Resp 24 B/P (MAP) 134/94 (107) Pulse Ox 92 92 O2 Delivery BiPAP/CPAP Room Air Room Air Room Air O2 Flow Rate 2.0 2.0 12/30/17 12/30/17 12/31/17 12/31/17 23:00 23:00 00:13 03:00 Temp 97.8 97.6 97.8 97.6 Pulse 112 68 Resp 24 24 B/P (MAP) 145/107 (120) 136/86 (103) Pulse Ox 95 93 95 94 O2 Delivery Room Air Nasal Cannula Nasal Cannula Nasal Cannula O2 Flow Rate 2.0 3.0 2.0 3.0 12/31/17 12/31/17 12/31/17 12/31/17 06:02 07:00 07:08 07:44 Temp 97.9 97.9 Pulse 115 Resp 22 B/P (MAP) 178/116 (136) Pulse Ox 94 94 94 96 O2 Delivery Room Air Nasal Cannula Nasal Cannula Nasal Cannula O2 Flow Rate 3.0 3.0 2.0 3.0 12/31/17 12/31/17 12/31/17 12/31/17 07:55 07:59 08:01 08:20 Pulse 115 B/P (MAP) 178/116 125/78 (94) O2 Delivery Room Air Nasal Cannula O2 Flow Rate 3.0 9/912/31/17 12/31/17 12/31/17 09:58 11:00 11:46 14:11 Temp 97.9 97.9 Pulse 92 Resp 22 B/P (MAP) 118/63 (81) Pulse Ox 93 O2 Delivery Room Air Nasal Cannula Nasal Cannula Room Air O2 Flow Rate 3.0 2.0 3.0 3.0 Intake and Output 12/30/17 12/30/17 12/31/17 15:00 23:00 07:00 Intake Total 600 ml 1300 ml 300 ml Output Total 0 ml Balance 600 ml 1300 ml 300 ml JORDI CASTREJON MD Dec 31, 2017 14:32
[2017-12-31] MEDS: VANCOMYCIN PER PHARMACY MC PRN (14:37)
[2017-12-31] MEDS: PATCH REMOVAL. MC SCH (21:00)
[2017-12-31] MEDS: POLYETHYLENE GLYCOL 3350 17 GM PACKET. PO SCH (21:08)
[2017-12-31] MEDS: MONTELUKAST SODIUM 10 MG TABLET. PO SCH (21:09)
[2017-12-31] MEDS: ATORVASTATIN CALCIUM 20 MG TABLET PO SCH (21:09)
[2018-01-01] MEDS: PROMETH/CODEINE 6.25/10MG 5 ML SYRUP. PO PRN (02:45)
[2018-01-01 03:00] VITALS: BP 138/91
[2018-01-01] MEDS: IPRATRPIUM/ALBUTEROL 0.5/2.5MG 3 ML NEBU. NEB SCH ×6 (03:27→23:40)
[2018-01-01] MEDS: methylPREDNISolone SOD SUCC PF 125 MG/2 ML VIAL. IV SCH ×3 (05:24→17:12)
[2018-01-01] MEDS: CEFEPIME HCL IV Push 1 GM VIAL. IVP SCH (05:25)
[2018-01-01] MEDS: VANCOMYCIN 1.5 GM in IV NORMAL SALINE 500ML BAG 500 ML IV SCH (05:25)
[2018-01-01 07:00] VITALS: BP 134/92
[2018-01-01] MEDS: BUDESONIDE 0.5 MG/2 ML NEBU. NEB SCH ×2 (07:50→19:58)
[2018-01-01] MEDS: INSULIN LISPRO 300 UNITS/3 ML INSULN.PEN. SQ SCH ×3 (08:00→17:18)
[2018-01-01] MEDS: POLYETHYLENE GLYCOL 3350 17 GM PACKET. PO SCH ×2 (08:34→21:00)
[2018-01-01] MEDS: GABAPENTIN 300 MG CAPSULE. PO SCH ×3 (08:35→21:25)
[2018-01-01] MEDS: HYDROXYCHLOROQUINE 200 MG TABLET PO SCH ×2 (08:35→21:25)
[2018-01-01] MEDS: metFORMIN XR 500 MG TAB.ER.24H PO SCH (08:35)
[2018-01-01] MEDS: PANTOPRAZOLE 40 MG TABLET.DR. PO SCH ×2 (08:35→17:12)
[2018-01-01] MEDS: BENZONATATE 100 MG CAPSULE. PO SCH ×3 (08:35→21:25)
[2018-01-01] MEDS: SERTRALINE 50 MG TABLET. PO SCH (08:36)
[2018-01-01] MEDS: FINASTERIDE 5 MG TABLET. PO SCH (08:36)
[2018-01-01] MEDS: ASPIRIN 325 MG TABLET PO SCH (08:36)
[2018-01-01] MEDS: DULoxetine HCL 30 MG CAPSULE.DR PO SCH (08:36)
[2018-01-01] MEDS: traMADol 50 MG TABLET PO PRN (08:36)
[2018-01-01] MEDS: FLUTICASONE 50MCG/NASAL SPRAY 16GM BOTTLE. NS SCH (08:37)
[2018-01-01] MEDS: LIDOCAINE (700MG/PATCH) PATCH. TD SCH (08:40)
--- NOTE | 2018-01-01 08:40 | PDOC ---
PULMONARY PROGRESS NOTES Subjective not more soa Vitals Vital Signs Date Time Temp Pulse Resp B/P (MAP) Pulse Ox O2 Delivery O2 Flow Rate FiO2 01/01/18 07:54 92 Nasal Cannula 2.0 01/01/18 07:00 97.9 100 22 134/92 (106) 97.9 ROS: No Nausea, No Chest Pain General: Alert, No acute distress HEENT: Other (nc at perrl nose throat clear) Lungs: Wheezing (bl moderate wheezing with some rhonchis) Cardiovascular: S1, S2 Abdomen: Soft, Non-tender, Other Neuro Exam: Alert Extremities: No Edema Skin: Warm Labs Laboratory Tests Test 12/30/17 11:26 12/30/17 12:38 12/30/17 16:22 12/30/17 21:07 Glucose (Fingerstick) 166 mg/dL (70-99) 159 mg/dL (70-99) 84 mg/dL (70-99) Vancomycin Level Trough 10.3 mcg/mL (10.0-20.0) Vancomycin Last Dose Date 12/30/17 Vancomycin Last Dose Time 0500 Test 12/31/17 04:20 12/31/17 07:28 12/31/17 07:51 12/31/17 11:05 White Blood Count 17.8 x10^3/uL (4.0-11.0) Red Blood Count 4.81 x10^6/uL (4.30-5.70) Hemoglobin 14.9 g/dL (13.0-17.5) Hematocrit 43.7 % (39.0-53.0) Mean Corpuscular Volume 91 fL (79-100) Mean Corpuscular Hemoglobin 31 pg (25-35) Mean Corpuscular Hemoglobin Concent 34 g/dL (31-37) Red Cell Distribution Width 15.0 % (11.5-14.5) Platelet Count 178 x10^3/uL (140-400) Neutrophils (%) (Auto) 89 % (31-73) Lymphocytes (%) (Auto) 4 % (24-48) Monocytes (%) (Auto) 7 % (0-9) Eosinophils (%) (Auto) 0 % (0-3) Basophils (%) (Auto) 0 % (0-3) Neutrophils # (Auto) 15.7 x10^3uL (1.8-7.7) Lymphocytes # (Auto) 0.8 x10^3/uL (1.0-4.8) Monocytes # (Auto) 1.2 x10^3/uL (0.0-1.1) Eosinophils # (Auto) 0.0 x10^3/uL (0.0-0.7) Basophils # (Auto) 0.0 x10^3/uL (0.0-0.2) Sodium Level 142 mmol/L (136-145) Potassium Level 3.6 mmol/L (3.5-5.1) Chloride Level 107 mmol/L (98-107) Carbon Dioxide Level 28 mmol/L (21-32) Anion Gap 7 (6-14) Blood Urea Nitrogen 28 mg/dL (8-26) Creatinine 0.9 mg/dL (0.7-1.3) Estimated GFR (Cockcroft-Gault) 85.0 Glucose Level 67 mg/dL (70-99) Calcium Level 8.5 mg/dL (8.5-10.1) Glucose (Fingerstick) 59 mg/dL (70-99) 91 mg/dL (70-99) 132 mg/dL (70-99) Test 12/31/17 13:30 12/31/17 16:19 12/31/17 21:16 01/01/18 07:24 Vancomycin Level Trough 16.3 mcg/mL (10.0-20.0) Vancomycin Last Dose Date 12/31/17 Vancomycin Last Dose Time 0600 Glucose (Fingerstick) 265 mg/dL (70-99) 248 mg/dL (70-99) 124 mg/dL (70-99) Laboratory Tests Test 12/31/17 11:05 12/31/17 13:30 12/31/17 16:19 12/31/17 21:16 Glucose (Fingerstick) 132 mg/dL (70-99) 265 mg/dL (70-99) 248 mg/dL (70-99) Vancomycin Level Trough 16.3 mcg/mL (10.0-20.0) Vancomycin Last Dose Date 12/31/17 Vancomycin Last Dose Time 0600 Test 01/01/18 07:24 Glucose (Fingerstick) 124 mg/dL (70-99) Medications Active Scripts Medications Dose Route/Sig Max Daily Dose Days Date Category Dose Instructions Oxycodone Hcl 10 Mg Tablet 1 Tab PO QID 12/27/17 Reported Breo Ellipta 200-25 Mcg INH (Fluticasone/Vilanterol) 1 Each Blst.w.dev 1 Each INH 12/27/17 Reported Tresiba Flextouch U-200 (Insulin Degludec) 200 Unit/1 Ml Insuln.pen 80 Unit SQ BID 11/28/17 Reported Tamsulosin Hcl 0.4 Mg Cap.er.24h 1 Cap PO DAILY 11/28/17 Reported Aspirin 325 Mg Tablet 1 Tab PO DAILY 11/28/17 Reported Prilosec Otc (Omeprazole Magnesium) 20 Mg Tablet.dr 1 Tab PO DAILY 11/28/17 Reported Cymbalta (Duloxetine Hcl) 60 Mg Capsule.dr 1 Cap PO DAILY 11/28/17 Reported Eliquis (Apixaban) 5 Mg Tablet 5 Mg PO BID 10/08/16 Rx Hydroxychloroquine Sulfate 200 Mg Tablet 1 Tab PO BID 10/07/16 Reported Finasteride 5 Mg Tablet 1 Tab PO DAILY 10/07/16 Reported Zoloft (Sertraline Hcl) 50 Mg Tablet 1 Tab PO DAILY 10/07/16 Reported Omeprazole 40 Mg Capsule.dr 1 Cap PO DAILY 10/07/16 Reported Metformin Hcl Er (Metformin Hcl) 1,000 Mg Tab.er.24 1,000 Mg PO DAILYWBKFT 10/07/16 Reported NITROGLYCERIN SubLingual (Nitroglycerin) 0.4 Mg Tab.subl 0.4 Mg SL PRN Q5MIN PRN 10/07/16 Reported Breo Ellipta 200-25 Mcg INH (Fluticasone/Vilanterol) 1 Each Blst.w.dev 2 Puff IH DAILY PRN 10/07/16 Reported Atorvastatin Calcium 20 Mg Tablet 20 Mg PO HS 12/17/14 Reported Gabapentin 300 Mg Capsule 300 Mg PO TID 11/03/14 Reported NEXT DOSE DUE AT 2 PM AND AT BEDTIME Carvedilol 3.125 Mg Tablet 1 Tab PO BID 09/25/14 Reported NEXT DOSE DUE WITH SUPPER TODAY Lisinopril 2.5 Mg Tablet 1 Tab PO DAILY 09/25/14 Reported NEXT DOSE DUE ON 11/05/14 Plavix (Clopidogrel Bisulfate) 75 Mg Tablet 1 Tab PO DAILY 09/25/14 Reported NEXT DOSE DUE ON 11/05/14 Prilosec (Omeprazole) 40 Mg Capsule.dr 40 Mg PO DAILY 07/11/13 Reported MAY TAKE ANY TIME Comments ct reviewed 1. No CT evidence of central pulmonary emboli. 2. Mediastinal lymph nodes of borderline size. 3. Minimal patchy bilateral upper lobe groundglass opacities may reflect inflammation, edema or scarring. 4. Moderate coronary artery calcifications. Impression . 1. Acute exacerbation of chronic obstructive pulmonary disease in a patient with ongoing tobacco use since 40 years.persistent cough/ intermittent soa 2. Acute hypoxic respiratory failure secondary to acute exacerbation of chronic obstructive pulmonary disease and acute bronchitis. 3. No definite consolidation seen on the chest x-ray. 4. acute bronchitis 4. allergic rhinitis Plan . follow up ct in 3 months steroids d/c smoking GERARD CHRISTIANSEN MD Jan 01, 2018 08:40
[2018-01-01] MEDS: INSULIN GLARGINE 300 UNITS/3 ML INSULN.PEN. SQ SCH ×2 (09:02→21:30)
--- NOTE | 2018-01-01 10:01 | PDOC ---
Infectious Disease Note Subjective Subjective feeling well No fevers/chills ROS ROS denies n/v/d/ breathing ok , except when walking Vital Sign Vital Signs Vital Signs Date Time Temp Pulse Resp B/P (MAP) Pulse Ox O2 Delivery O2 Flow Rate FiO2 01/01/18 09:43 Nasal Cannula 2.0 01/01/18 07:54 92 01/01/18 07:00 97.9 100 22 134/92 (106) 97.9 Physical Exam PHYSICAL EXAM GENERAL: Sleeping HEENT: Oral cavity, pharynx is clear. Some sinus congestion NECK: Supple, no JVD. LUNGS: Coarse, nonlabored HEART: S1, S2. ABDOMEN: Obese, soft, no guarding or rebound. EXTREMITIES: No clubbing or cyanosis. No gross edema. SKIN: Warm to touch without generalized signs of rash. NEUROLOGIC: Arouses easily to name PIV ok Labs Lab Laboratory Tests Test 12/31/17 11:05 12/31/17 13:30 12/31/17 16:19 12/31/17 21:16 Glucose (Fingerstick) 132 mg/dL (70-99) 265 mg/dL (70-99) 248 mg/dL (70-99) Vancomycin Level Trough 16.3 mcg/mL (10.0-20.0) Vancomycin Last Dose Date 12/31/17 Vancomycin Last Dose Time 0600 Test 01/01/18 07:24 Glucose (Fingerstick) 124 mg/dL (70-99) Micro Microbiology 12/27/17 Blood Culture - Final, Complete NO GROWTH AFTER 5 DAYS Objective Assessment Leukocytosis - increased - on Steroids AECOPD -better - CT reviewed Sinus congestion - better DM Ongoing tobacco abuse H/o Zoster Plan Plan of Care d/c Vanc, Cefepime (12/27) and Levaquin ,, po augmentin Trough 10.3 F/u labs and cults Cont Levy nasal spray check o2 need d/w family strongly adv to quit smoking FARZAD LIU MD Jan 01, 2018 10:00
[2018-01-01 11:00] VITALS: BP 164/106
--- NOTE | 2018-01-01 11:50 | PDOC ---
PROGRESS NOTES Chief Complaint Chief Complaint acute hypoxic resp failure COPD exacerbation acute bronchitis, recurrent dizzy/ lightheaded with h/o orthostatic hypotension H/O CAD WITH stents dm2 on insulin tobacco use disroder, HTN off meds HLD GERD depression BPH marijuana use h/o stroke with mild rt side weakness groin aron dermatitis recent shingles PPM acute on chronic back pain History of Present Illness History of Present Illness Just got back from the bathroom and very SOA and wheezy already Cannot hardly catch his breath Does smoke but is wanting to quit I did provide copies of his CAT scans showing that COPD/emphysematous lungs, inflammatory signs, and also some cervical DJD, and calcific plaque buildup in left greater than right carotid arteries and coronary calcifications Plan: no DC today, very wheezy Albuterol 2.51 now Continue every 4 scheduled nebs he will need prescription for albuterol for home 6 minute walk prior to discharge 24- 48 hrs. Continue steroids very high doses 40 IV every 8 Vitals Vitals Vital Signs Date Time Temp Pulse Resp B/P (MAP) Pulse Ox O2 Delivery O2 Flow Rate FiO2 01/01/18 09:43 Nasal Cannula 2.0 01/01/18 07:54 92 01/01/18 07:00 97.9 100 22 134/92 (106) 97.9 Physical Exam Physical Exam GENERAL: Sleeping HEENT: Oral cavity, pharynx is clear. Some sinus congestion NECK: Supple, no JVD. LUNGS: Coarse, nonlabored HEART: S1, S2. ABDOMEN: Obese, soft, no guarding or rebound. EXTREMITIES: No clubbing or cyanosis. No gross edema. SKIN: Warm to touch without generalized signs of rash. NEUROLOGIC: Arouses easily to name PIV ok General: Alert, Oriented X3, Cooperative Heart: Regular rate, Normal S1, Normal S2 Lungs: Wheezing (bl moderate wheezing with some rhonchis) Abdomen: Normal bowel sounds, Soft Extremities: No clubbing, No cyanosis Skin: No rashes Labs LABS Laboratory Tests Test 12/31/17 13:30 12/31/17 16:19 12/31/17 21:16 01/01/18 07:24 Vancomycin Level Trough 16.3 mcg/mL (10.0-20.0) Vancomycin Last Dose Date 12/31/17 Vancomycin Last Dose Time 0600 Glucose (Fingerstick) 265 mg/dL (70-99) 248 mg/dL (70-99) 124 mg/dL (70-99) Test 01/01/18 10:55 Glucose (Fingerstick) 265 mg/dL (70-99) Review of Systems Review of Systems Wheezy, SOA, no chest pain, no fever, no abdominal issues Assessment and Plan Assessmemt and Plan Problems Medical Problems: (1) COPD (chronic obstructive pulmonary disease) Status: Acute Comment Review of Relevant I have reviewed the following items bud (where applicable) has been applied. Labs Laboratory Tests Test 12/30/17 12:38 12/30/17 16:22 12/30/17 21:07 12/31/17 04:20 Vancomycin Level Trough 10.3 mcg/mL (10.0-20.0) Vancomycin Last Dose Date 12/30/17 Vancomycin Last Dose Time 0500 Glucose (Fingerstick) 159 mg/dL (70-99) 84 mg/dL (70-99) White Blood Count 17.8 x10^3/uL (4.0-11.0) Red Blood Count 4.81 x10^6/uL (4.30-5.70) Hemoglobin 14.9 g/dL (13.0-17.5) Hematocrit 43.7 % (39.0-53.0) Mean Corpuscular Volume 91 fL (79-100) Mean Corpuscular Hemoglobin 31 pg (25-35) Mean Corpuscular Hemoglobin Concent 34 g/dL (31-37) Red Cell Distribution Width 15.0 % (11.5-14.5) Platelet Count 178 x10^3/uL (140-400) Neutrophils (%) (Auto) 89 % (31-73) Lymphocytes (%) (Auto) 4 % (24-48) Monocytes (%) (Auto) 7 % (0-9) Eosinophils (%) (Auto) 0 % (0-3) Basophils (%) (Auto) 0 % (0-3) Neutrophils # (Auto) 15.7 x10^3uL (1.8-7.7) Lymphocytes # (Auto) 0.8 x10^3/uL (1.0-4.8) Monocytes # (Auto) 1.2 x10^3/uL (0.0-1.1) Eosinophils # (Auto) 0.0 x10^3/uL (0.0-0.7) Basophils # (Auto) 0.0 x10^3/uL (0.0-0.2) Sodium Level 142 mmol/L (136-145) Potassium Level 3.6 mmol/L (3.5-5.1) Chloride Level 107 mmol/L (98-107) Carbon Dioxide Level 28 mmol/L (21-32) Anion Gap 7 (6-14) Blood Urea Nitrogen 28 mg/dL (8-26) Creatinine 0.9 mg/dL (0.7-1.3) Estimated GFR (Cockcroft-Gault) 85.0 Glucose Level 67 mg/dL (70-99) Calcium Level 8.5 mg/dL (8.5-10.1) Test 12/31/17 07:28 12/31/17 07:51 12/31/17 11:05 12/31/17 13:30 Glucose (Fingerstick) 59 mg/dL (70-99) 91 mg/dL (70-99) 132 mg/dL (70-99) Vancomycin Level Trough 16.3 mcg/mL (10.0-20.0) Vancomycin Last Dose Date 12/31/17 Vancomycin Last Dose Time 0600 Test 12/31/17 16:19 12/31/17 21:16 01/01/18 07:24 01/01/18 10:55 Glucose (Fingerstick) 265 mg/dL (70-99) 248 mg/dL (70-99) 124 mg/dL (70-99) 265 mg/dL (70-99) Laboratory Tests Test 12/31/17 13:30 12/31/17 16:19 12/31/17 21:16 01/01/18 07:24 Vancomycin Level Trough 16.3 mcg/mL (10.0-20.0) Vancomycin Last Dose Date 12/31/17 Vancomycin Last Dose Time 0600 Glucose (Fingerstick) 265 mg/dL (70-99) 248 mg/dL (70-99) 124 mg/dL (70-99) Test 01/01/18 10:55 Glucose (Fingerstick) 265 mg/dL (70-99) Microbiology 12/27/17 Blood Culture - Final, Complete NO GROWTH AFTER 5 DAYS Medications Current Medications Methylprednisolone Sodium Succinate (SOLU-Medrol 125MG VIAL) 125 mg 1X ONCE IV Last administered on 12/27/17at 08:52; Start 12/27/17 at 08:30; Stop 12/27/17 at 08:31; Status DC Albuterol/ Ipratropium (Duoneb) 3 ml 1X ONCE NEB Last administered on at 08:42; Start 12/27/17 at 08:30; Stop 12/27/17 at 08:31; Status DC Benzonatate (Tessalon Perle) 100 mg 1X ONCE PO Last administered on 12/27/17at 08:40; Start 12/27/17 at 08:30; Stop 12/27/17 at 08:31; Status DC Morphine Sulfate (Morphine Sulfate) 2 mg 1X ONCE IV Last administered on at 08:55; Start 12/27/17 at 08:30; Stop 12/27/17 at 08:31; Status DC Ondansetron HCl (Zofran) 4 mg 1X ONCE IV Last administered on 12/27/17at 08:53; Start 12/27/17 at 08:30; Stop 12/27/17 at 08:31; Status DC Levofloxacin/ Dextrose 150 ml @ 100 mls/hr 1X ONCE IV Last administered on 12/27/17at 10:12; Start 12/27/17 at 10:00; Stop 12/27/17 at 11:29; Status DC Sodium Chloride 1,000 ml @ 1,000 mls/hr 1X ONCE IV Last administered on at 10:10; Start 12/27/17 at 10:00; Stop 12/27/17 at 10:59; Status DC Albuterol/ Ipratropium (Duoneb) 3 ml 1X ONCE NEB Last administered on at 10:10; Start 12/27/17 at 10:00; Stop 12/27/17 at 10:04; Status DC Ketorolac Tromethamine (Toradol 30mg Vial) 15 mg 1X ONCE IV Last administered on 12/27/17at 10:08; Start 12/27/17 at 10:00; Stop 12/27/17 at 10:04; Status DC Ondansetron HCl (Zofran) 4 mg PRN Q8HRS PRN IV NAUSEA/VOMITING; Start 12/27/17 at 10:15; Stop 12/28/17 at 10:14; Status DC Morphine Sulfate (Morphine Sulfate) 4 mg PRN Q2HR PRN IV PAIN Last administered on 12/27/17at 14:45; Start 12/27/17 at 10:15; Stop 12/28/17 at 10:14; Status DC Acetaminophen (Tylenol) 650 mg PRN Q4HRS PRN PO FEVER; Start 12/27/17 at 10:15; Stop 12/27/17 at 12:20; Status DC Insulin Human Lispro (HumaLOG) 0-9 UNITS TIDWMEALS SQ Last administered on at 16:48; Start 12/27/17 at 12:30 Dextrose (Dextrose 50%-Water Syringe) 12.5 gm PRN Q15MIN PRN IV SEE COMMENTS; Start 12/27/17 at 12:15 Acetaminophen (Tylenol) 650 mg PRN Q6HRS PRN PO FEVER Last administered on at 02:10; Start 12/27/17 at 12:15 Ondansetron HCl (Zofran) 4 mg PRN Q6HRS PRN IV NAUSEA/VOMITING 1ST CHOICE; Start 12/27/17 at 12:15 Morphine Sulfate (Morphine Sulfate) 2 mg PRN Q2HR PRN IV MODERATE TO SEVERE PAIN Last administered on 12/31/17at 06:02; Start 12/27/17 at 12:15 Tramadol HCl (Ultram) 50 mg PRN Q6HRS PRN PO MILD TO MODERATE PAIN Last administered on 01/01/18at 08:36; Start 12/27/17 at 12:15 Docusate Sodium (Colace) 100 mg PRN DAILY PRN PO HARD STOOLS Last administered on 12/31/17at 06:01; Start 12/27/17 at 12:15 Labetalol HCl (Normodyne Iv Push) 20 mg PRN Q2HR PRN IVP HYPERTENSION, SEE COMMENTS Last administered on 12/31/17at 07:59; Start 12/27/17 at 12:15 Albuterol/ Ipratropium (Duoneb) 3 ml RTQID NEB Last administered on 12/28/17at 07 :18; Start 12/27/17 at 16:00; Stop 12/28/17 at 09:49; Status DC Albuterol Sulfate (Ventolin Neb Soln) 2.5 mg PRN Q2HR PRN NEB SHORTNESS OF BREATH; Start 12/27/17 at 12:15 Guaifenesin (Mucinex) 600 mg BID PO Last administered on 01/01/18at 08:35; Start 12/27/17 at 13:00 Methylprednisolone Sodium Succinate (SOLU-Medrol 125MG VIAL) 125 mg Q8HRS IV Last administered on 12/30/17 06:20; Start 12/27/17 at 14:00; Stop 12/30/17 at 08: 55; Status DC Apixaban (Eliquis) 5 mg BID PO Last administered on 12/27/17at 20:36; Start at 21:00; Stop 12/28/17 at 09:49; Status DC Aspirin (Jorge Luis Aspirin) 325 mg DAILY PO Last administered on 01/01/18at 08:36; Start 12/28/17 at 09:00 Atorvastatin Calcium (Lipitor) 20 mg HS PO Last administered on 12/31/17at 21:09 ; Start 12/27/17 at 21:00 Carvedilol (Coreg) 3.125 mg BIDWMEALS PO Last administered on 12/27/17at 20:36; Start 12/27/17 at 21:00; Stop 12/28/17 at 09:49; Status DC Clopidogrel Bisulfate (Plavix) 75 mg DAILY PO Last administered on 12/27/17at 16: 15; Start 12/27/17 at 13:00; Stop 12/28/17 at 09:49; Status DC Finasteride (Proscar) 5 mg DAILY PO Last administered on 01/01/18at 08:36; Start 12/27/17 at 13:00 Nitroglycerin (Nitrostat) 0.4 mg PRN Q5MIN PRN SL CHEST PAIN; Start 12/27/17 at 12:15 Sertraline HCl (Zoloft) 50 mg DAILY PO Last administered on 01/01/18at 08:36; Start 12/28/17 at 09:00 Tamsulosin HCl (Flomax) 0.4 mg DAILY PO Last administered on 12/28/17at 08:33; Start 12/27/17 at 13:00; Stop 12/28/17 at 09:49; Status DC Duloxetine HCl (Cymbalta) 60 mg DAILY PO Last administered on 01/01/18at 08:36; Start 12/27/17 at 14:00 Non-Formulary Medication (Fluticasone/ Vilanterol (Breo Ellipta 200-25 Mcg INH) ) 2 puff DAILY PRN IH prn; Start 12/27/17 at 12:15; Status UNV Gabapentin (Neurontin) 300 mg TID PO Last administered on 01/01/18at 08:35; Start 12/27/17 at 14:00 Hydroxychloroquine Sulfate (Plaquenil) 200 mg BID PO Last administered on at 08:35; Start 12/27/17 at 14:00 Insulin Glargine (Lantus) 75 units BID SQ Last administered on 12/28/17at 08:45; Start 12/27/17 at 21:00; Stop 12/28/17 at 09:49; Status DC Lisinopril (Prinivil) 2.5 mg DAILY PO Last administered on 12/27/17at 16:15; Start 12/27/17 at 14:00; Stop 12/28/17 at 09:49; Status DC Metformin HCl (Glucophage Xr) 1,000 mg DAILYWBKFT PO Last administered on at 08:35; Start 01/01/18 at 08:00 Pantoprazole Sodium (Protonix) 40 mg DAILYAC PO Last administered on 12/31/17at 08:00; Start 12/27/17 at 14:00; Stop 12/31/17 at 08:57; Status DC Levofloxacin/ Dextrose 100 ml @ 100 mls/hr DAILY IV Last administered on at 08:38; Start 12/28/17 at 09:00; Stop 01/01/18 at 10:02; Status DC Info (Anti-Coagulation Monitoring By Pharmacy) 1 each PRN DAILY PRN MC SEE COMMENTS; Start 12/27/17 at 12:30; Stop 12/29/17 at 15:03; Status DC Iohexol (Omnipaque 300 Mg/ml) 75 ml 1X ONCE IV Last administered on 12/27/17at 12:30; Start 12/27/17 at 12:30; Stop 12/27/17 at 12:55; Status DC Info (CONTRAST GIVEN -- Rx MONITORING) 1 each PRN DAILY PRN MC SEE COMMENTS; Start 12/27/17 at 13:00; Stop 12/29/17 at 12:59; Status DC Budesonide (Pulmicort) 0.5 mg RTBID NEB Last administered on 01/01/18at 07:50; Start 12/27/17 at 20:00 Cefepime HCl (Maxipime) 1 gm Q12HR IVP ; Start 12/27/17 at 17:00; Stop 12/27/17 at 17:00; Status DC Cefepime HCl (Maxipime) 1 gm Q8HRS IVP Last administered on 01/01/18at 05:25; Start 12/27/17 at 17:00; Stop 01/01/18 at 10:02; Status DC Vancomycin HCl (Vanco Per Pharmacy) 1 each PRN DAILY PRN MC SEE COMMENTS Last administered on 12/31/17at 14:37; Start 12/27/17 at 16:45; Stop 01/01/18 at 10:07; Status DC Vancomycin HCl 2 gm/Sodium Chloride 500 ml @ 250 mls/hr ONCE ONCE IV Last administered on 12/27/17at 18:13; Start 12/27/17 at 17:00; Stop 12/27/17 at 18:59; Status DC Oxycodone HCl (Roxicodone) 10 mg QID PO Last administered on 12/27/17at 18:13; Start 12/27/17 at 17:30; Stop 12/27/17 at 19:06; Status DC Vancomycin HCl 1.5 gm/Sodium Chloride 500 ml @ 250 mls/hr Q12H IV Last administered on 12/29/17at 13:13; Start 12/28/17 at 06:00; Stop 12/29/17 at 14:49; Status DC Vancomycin HCl (Vancomycin Trough Level) 1 each 1X ONCE MC ; Start 12/29/17 at 05:30; Stop 12/29/17 at 05:31; Status DC Nicotine (Nicoderm Cq 21mg) 1 patch PRN DAILY PRN TD SMOKING CESSATION Last administered on 12/31/17at 11:46; Start 12/27/17 at 18:45 Oxycodone HCl (Roxicodone) 10 mg PRN QID PRN PO SEVERE PAIN Last administered on 12/31/17at 21:10; Start 12/27/17 at 19:15 Insulin Human Lispro (HumaLOG) 15 units 1X ONCE SQ Last administered on at 21:38; Start 12/27/17 at 21:15; Stop 12/27/17 at 21:16; Status DC Insulin Glargine (Lantus) 10 units 1X ONCE SQ Last administered on 12/28/17at 09 :10; Start 12/28/17 at 09:00; Stop 12/28/17 at 09:01; Status DC Insulin Glargine (Lantus) 85 units BID SQ ; Start 12/28/17 at 21:00; Stop at 21:00; Status DC Albuterol/ Ipratropium (Duoneb) 3 ml Q4HRS NEB Last administered on 01/01/18at 07:49; Start 12/28/17 at 12:00 Insulin Human Lispro (HumaLOG) 10 units TIDAC SQ Last administered on 12/29/17at 08:56; Start 12/28/17 at 11:30; Stop 12/29/17 at 10:02; Status DC Benzonatate (Tessalon Perle) 100 mg [id number] PO Last administered on 01/01/18at 08 :35; Start 12/28/17 at 11:00 Insulin Glargine (Lantus) 90 units BID SQ Last administered on 12/29/17at 08:55; Start 12/28/17 at 21:00; Stop 12/29/17 at 10:02; Status DC Tizanidine HCl (Zanaflex) 2 mg PRN Q8HRS PRN PO MUSCLE SPASMS Last administered on 12/31/17at 16:44; Start 12/28/17 at 15:15 Sodium Chloride (Saline Mist Nasal) 1 karsten PRN Q1HR PRN NS NASAL CONGESTION Last administered on 12/31/17 14:14; Start 12/29/17 at 09:45 Insulin Glargine (Lantus) 100 units BID SQ Last administered on 12/30/17at 08:58 ; Start 12/29/17 at 21:00; Stop 12/30/17 at 10:42; Status DC Insulin Human Lispro (HumaLOG) 15 units TIDAC SQ Last administered on 12/30/17at 08:58; Start 12/29/17 at 11:30; Stop 12/30/17 at 10:42; Status DC Insulin Glargine (Lantus) 10 units 1X ONCE SQ ; Start 12/29/17 at 11:00; Stop at 11:01; Status DC Lidocaine (Lidoderm) 1 patch DAILY TD Last administered on 01/01/18at 08:40; Start 12/29/17 at 11:00 Miscellaneous (Lidoderm Patch Removal) 1 ea QHS MC Last administered on at 21:00; Start 12/29/17 at 21:00 Promethazine HCl/ Codeine (Phenergan With Codeine) 5 ml PRN Q6HRS PRN PO COUGH Last administered on 01/01/18at 02:45; Start 12/29/17 at 10:00 Iohexol (Omnipaque 300 Mg/ml) 75 ml 1X ONCE IV Last administered on 12/29/17at 11:45; Start 12/29/17 at 11:45; Stop 12/29/17 at 11:46; Status DC Info (CONTRAST GIVEN -- Rx MONITORING) 1 each PRN DAILY PRN MC SEE COMMENTS; Start 12/29/17 at 11:45; Stop 12/31/17 at 11:44; Status DC Vancomycin HCl 1.25 gm/Sodium Chloride 250 ml @ 167 mls/hr Q8H IV Last administered on 12/30/17at 04:47; Start 12/29/17 at 21:00; Stop 12/30/17 at 13:21; Status DC Vancomycin HCl (Vancomycin Trough Level) 1 each 1X ONCE MC Last administered on 12/30/17at 13:14; Start 12/30/17 at 12:30; Stop 12/30/17 at 12:31; Status DC Methylprednisolone Sodium Succinate (SOLU-Medrol 125MG VIAL) 80 mg Q8HRS IV Last administered on 12/31/17at 05:48; Start 12/30/17 at 14:00; Stop 12/31/17 at 08: 57; Status DC Fluticasone Propionate (Flonase) 2 spray DAILY NS Last administered on at 08:37; Start 12/30/17 at 10:00 Insulin Glargine (Lantus) 50 units BID SQ Last administered on 12/30/17at 22:04; Start 12/30/17 at 21:00; Stop 12/31/17 at 11:44; Status DC Vancomycin HCl 1.5 gm/Sodium Chloride 500 ml @ 250 mls/hr Q8H IV Last administered on 01/01/18at 05:25; Start 12/30/17 at 14:00; Stop 01/01/18 at 10:02 ; Status DC Vancomycin HCl (Vancomycin Trough Level) 1 each 1X ONCE MC Last administered on 12/31/17at 13:30; Start 12/31/17 at 13:30; Stop 12/31/17 at 13:31; Status DC Methylprednisolone Sodium Succinate (SOLU-Medrol 125MG VIAL) 80 mg Q6HRS IV Last administered on 01/01/18at 05:24; Start 12/31/17 at 12:00 Pantoprazole Sodium (Protonix) 40 mg BIDAC PO Last administered on 01/01/18at 08 :35; Start 12/31/17 at 16:30 Montelukast Sodium (Singulair) 10 mg QHS PO Last administered on 12/31/17at 21:09 ; Start 12/31/17 at 21:00 Insulin Glargine (Lantus) 30 units BID SQ Last administered on 01/01/18at 09:02 ; Start 12/31/17 at 21:00 Polyethylene Glycol (miraLAX PACKET) 17 gm BID PO Last administered on at 08:34; Start 12/31/17 at 19:30 Amoxicillin/ Clavulanate Potassium (Augmentin 875/ 125mg) 1 tab BID PO ; Start 01/01/18 at 11:00 Active Scripts Active Eliquis (Apixaban) 5 Mg Tablet 5 Mg PO BID Reported Oxycodone Hcl 10 Mg Tablet 1 Tab PO QID Breo Ellipta 200-25 Mcg INH (Fluticasone/Vilanterol) 1 Each Blst.w.dev 1 Each INH Tresiba Flextouch U-200 (Insulin Degludec) 200 Unit/1 Ml Insuln.pen 80 Unit SQ BID Tamsulosin Hcl 0.4 Mg Cap.er.24h 1 Cap PO DAILY Aspirin 325 Mg Tablet 1 Tab PO DAILY Prilosec Otc (Omeprazole Magnesium) 20 Mg Tablet.dr 1 Tab PO DAILY Cymbalta (Duloxetine Hcl) 60 Mg Capsule.dr 1 Cap PO DAILY Hydroxychloroquine Sulfate 200 Mg Tablet 1 Tab PO BID Finasteride 5 Mg Tablet 1 Tab PO DAILY Zoloft (Sertraline Hcl) 50 Mg Tablet 1 Tab PO DAILY Omeprazole 40 Mg Capsule.dr 1 Cap PO DAILY Metformin Hcl Er (Metformin Hcl) 1,000 Mg Tab.er.24 1,000 Mg PO DAILYWBKFT NITROGLYCERIN SubLingual (Nitroglycerin) 0.4 Mg Tab.subl 0.4 Mg SL PRN Q5MIN PRN Breo Ellipta 200-25 Mcg INH (Fluticasone/Vilanterol) 1 Each Blst.w.dev 2 Puff IH DAILY PRN Atorvastatin Calcium 20 Mg Tablet 20 Mg PO HS Gabapentin 300 Mg Capsule 300 Mg PO TID NEXT DOSE DUE AT 2 PM AND AT BEDTIME Carvedilol 3.125 Mg Tablet 1 Tab PO BID NEXT DOSE DUE WITH SUPPER TODAY Lisinopril 2.5 Mg Tablet 1 Tab PO DAILY NEXT DOSE DUE ON 11/05/14 Plavix (Clopidogrel Bisulfate) 75 Mg Tablet 1 Tab PO DAILY NEXT DOSE DUE ON 11/05/14 Prilosec (Omeprazole) 40 Mg Capsule.dr 40 Mg PO DAILY MAY TAKE ANY TIME Vitals/I & O Vital Sign - Last 24 Hours 12/31/17 12/31/17 12/31/17 12/31/17 14:11 15:00 15:36 19:00 Temp 97.9 97.9 Pulse 104 105 Resp 22 20 B/P (MAP) 145/99 (114) 125/79 (94) Pulse Ox 94 93 92 O2 Delivery Room Air Nasal Cannula Room Air Room Air O2 Flow Rate 3.0 3.0 12/31/17 12/31/17 12/31/17 12/31/17 20:00 20:11 20:13 21:10 Pulse Ox 88 88 92 O2 Delivery Nasal Cannula Room Air Room Air Nasal Cannula O2 Flow Rate 2.0 2.0 12/31/17 12/31/17 12/31/17 01/01/18 22:22 23:00 23:02 03:00 Temp 98.0 97.7 98.0 97.7 Pulse 103 99 Resp 20 20 B/P (MAP) 120/79 (93) 138/91 (107) Pulse Ox 92 96 95 97 O2 Delivery Nasal Cannula Room Air Nasal Cannula Room Air O2 Flow Rate 2.0 2.0 01/01/18 01/01/18 01/01/18 01/01/18 03:27 07:00 07:54 08:00 Temp 97.9 97.9 Pulse 100 Resp 22 B/P (MAP) 134/92 (106) Pulse Ox 95 95 92 O2 Delivery Nasal Cannula Room Air Nasal Cannula Nasal Cannula O2 Flow Rate 2.0 2.0 2.0 01/01/18 01/01/18 08:36 09:43 O2 Delivery Nasal Cannula Nasal Cannula O2 Flow Rate 2.0 2.0 Intake and Output 12/31/17 12/31/17 01/01/18 15:00 23:00 07:00 Intake Total 600 ml 1800 ml 500 ml Output Total 800 ml Balance 600 ml 1000 ml 500 ml SIXTO MARTINEZ MD Jan 01, 2018 11:49
[2018-01-01] MEDS ORDERED: NICOTINE 21MG PATCH. TD PRN (12:00)
[2018-01-01] MEDS ORDERED: ALBUTEROL SULFATE 2.5 MG/3 ML NEBU. NEB ONE (12:00)
[2018-01-01] MEDS: AMOXICILLIN/K CLAV 875/125MG TABLET. PO SCH ×2 (12:08→21:25)
[2018-01-01] MEDS: oxyCODONE IR 5 MG TABLET PO PRN ×2 (12:11→21:24)
[2018-01-01 15:00] VITALS: BP 168/98
[2018-01-01 19:00] VITALS: BP 136/93
[2018-01-01] MEDS: PATCH REMOVAL. MC SCH (21:00)
[2018-01-01] MEDS: ATORVASTATIN CALCIUM 20 MG TABLET PO SCH (21:25)
[2018-01-01] MEDS: MONTELUKAST SODIUM 10 MG TABLET. PO SCH (21:25)
[2018-01-01 23:00] VITALS: BP 131/94
[2018-01-02] MEDS: methylPREDNISolone SOD SUCC PF 125 MG/2 ML VIAL. IV SCH ×5 (00:09→23:29)
[2018-01-02 03:00] VITALS: BP 158/107
[2018-01-02] MEDS: IPRATRPIUM/ALBUTEROL 0.5/2.5MG 3 ML NEBU. NEB SCH ×3 (03:11→11:24)
[2018-01-02] MEDS: oxyCODONE IR 5 MG TABLET PO PRN ×2 (05:49→15:21)
[2018-01-02 07:00] VITALS: BP 150/103
[2018-01-02] MEDS: BUDESONIDE 0.5 MG/2 ML NEBU. NEB SCH ×2 (07:17→19:38)
[2018-01-02] MEDS: DULoxetine HCL 30 MG CAPSULE.DR PO SCH (08:37)
[2018-01-02] MEDS: ASPIRIN 325 MG TABLET PO SCH (08:37)
[2018-01-02] MEDS: AMOXICILLIN/K CLAV 875/125MG TABLET. PO SCH ×2 (08:37→20:33)
[2018-01-02] MEDS: PANTOPRAZOLE 40 MG TABLET.DR. PO SCH ×2 (08:37→17:48)
[2018-01-02] MEDS: BENZONATATE 100 MG CAPSULE. PO SCH ×3 (08:37→20:33)
[2018-01-02] MEDS: FLUTICASONE 50MCG/NASAL SPRAY 16GM BOTTLE. NS SCH (08:38)
[2018-01-02] MEDS: metFORMIN XR 500 MG TAB.ER.24H PO SCH (08:38)
[2018-01-02] MEDS: HYDROXYCHLOROQUINE 200 MG TABLET PO SCH ×2 (08:38→20:34)
[2018-01-02] MEDS: FINASTERIDE 5 MG TABLET. PO SCH (08:38)
[2018-01-02] MEDS: GABAPENTIN 300 MG CAPSULE. PO SCH ×3 (08:38→20:33)
[2018-01-02] MEDS: SERTRALINE 50 MG TABLET. PO SCH (08:38)
[2018-01-02] MEDS: LIDOCAINE (700MG/PATCH) PATCH. TD SCH (08:39)
[2018-01-02] MEDS: INSULIN LISPRO 300 UNITS/3 ML INSULN.PEN. SQ SCH ×5 (08:41→17:56)
[2018-01-02] MEDS: INSULIN GLARGINE 300 UNITS/3 ML INSULN.PEN. SQ SCH ×2 (08:42→20:39)
[2018-01-02] MEDS: POLYETHYLENE GLYCOL 3350 17 GM PACKET. PO SCH ×2 (08:51→20:42)
[2018-01-02 10:49] VITALS: BP 141/94
--- NOTE | 2018-01-02 10:59 | PDOC ---
PULMONARY PROGRESS NOTES Subjective PAT NOT MORE SOA NOW WITH URINARY RETENTION Vitals Vital Signs Date Time Temp Pulse Resp B/P (MAP) Pulse Ox O2 Delivery O2 Flow Rate FiO2 01/02/18 10:49 97.8 104 22 141/94 (110) 94 Room Air 97.8 01/01/18 20:00 2.0 ROS: No Nausea, No Chest Pain, No Abdominal Pain General: Alert, No acute distress Lungs: Wheezing (bl moderate wheezing with some rhonchis) Cardiovascular: S1, S2 Abdomen: Soft, Non-tender, Other Neuro Exam: Alert Extremities: No Edema Skin: Warm Labs Laboratory Tests Test 12/31/17 11:05 12/31/17 13:30 12/31/17 16:19 12/31/17 21:16 Glucose (Fingerstick) 132 mg/dL (70-99) 265 mg/dL (70-99) 248 mg/dL (70-99) Vancomycin Level Trough 16.3 mcg/mL (10.0-20.0) Vancomycin Last Dose Date 12/31/17 Vancomycin Last Dose Time 0600 Test 01/01/18 07:24 01/01/18 10:55 01/01/18 16:22 01/01/18 21:12 Glucose (Fingerstick) 124 mg/dL (70-99) 265 mg/dL (70-99) 205 mg/dL (70-99) 302 mg/dL (70-99) Test 01/02/18 07:29 Glucose (Fingerstick) 211 mg/dL (70-99) Laboratory Tests Test 01/01/18 16:22 01/01/18 21:12 01/02/18 07:29 Glucose (Fingerstick) 205 mg/dL (70-99) 302 mg/dL (70-99) 211 mg/dL (70-99) Medications Active Scripts Medications Dose Route/Sig Max Daily Dose Days Date Category Dose Instructions Oxycodone Hcl 10 Mg Tablet 1 Tab PO QID 12/27/17 Reported Breo Ellipta 200-25 Mcg INH (Fluticasone/Vilanterol) 1 Each Blst.w.dev 1 Each INH 12/27/17 Reported Tresiba Flextouch U-200 (Insulin Degludec) 200 Unit/1 Ml Insuln.pen 80 Unit SQ BID 11/28/17 Reported Tamsulosin Hcl 0.4 Mg Cap.er.24h 1 Cap PO DAILY 11/28/17 Reported Aspirin 325 Mg Tablet 1 Tab PO DAILY 11/28/17 Reported Prilosec Otc (Omeprazole Magnesium) 20 Mg Tablet.dr 1 Tab PO DAILY 11/28/17 Reported Cymbalta (Duloxetine Hcl) 60 Mg Capsule.dr 1 Cap PO DAILY 11/28/17 Reported Eliquis (Apixaban) 5 Mg Tablet 5 Mg PO BID 10/08/16 Rx Hydroxychloroquine Sulfate 200 Mg Tablet 1 Tab PO BID 10/07/16 Reported Finasteride 5 Mg Tablet 1 Tab PO DAILY 10/07/16 Reported Zoloft (Sertraline Hcl) 50 Mg Tablet 1 Tab PO DAILY 10/07/16 Reported Omeprazole 40 Mg Capsule.dr 1 Cap PO DAILY 10/07/16 Reported Metformin Hcl Er (Metformin Hcl) 1,000 Mg Tab.er.24 1,000 Mg PO DAILYWBKFT 10/07/16 Reported NITROGLYCERIN SubLingual (Nitroglycerin) 0.4 Mg Tab.subl 0.4 Mg SL PRN Q5MIN PRN 10/07/16 Reported Breo Ellipta 200-25 Mcg INH (Fluticasone/Vilanterol) 1 Each Blst.w.dev 2 Puff IH DAILY PRN 10/07/16 Reported Atorvastatin Calcium 20 Mg Tablet 20 Mg PO HS 12/17/14 Reported Gabapentin 300 Mg Capsule 300 Mg PO TID 11/03/14 Reported NEXT DOSE DUE AT 2 PM AND AT BEDTIME Carvedilol 3.125 Mg Tablet 1 Tab PO BID 09/25/14 Reported NEXT DOSE DUE WITH SUPPER TODAY Lisinopril 2.5 Mg Tablet 1 Tab PO DAILY 09/25/14 Reported NEXT DOSE DUE ON 11/05/14 Plavix (Clopidogrel Bisulfate) 75 Mg Tablet 1 Tab PO DAILY 09/25/14 Reported NEXT DOSE DUE ON 11/05/14 Prilosec (Omeprazole) 40 Mg Capsule.dr 40 Mg PO DAILY 07/11/13 Reported MAY TAKE ANY TIME Comments ct reviewed 1. No CT evidence of central pulmonary emboli. 2. Mediastinal lymph nodes of borderline size. 3. Minimal patchy bilateral upper lobe groundglass opacities may reflect inflammation, edema or scarring. 4. Moderate coronary artery calcifications. Impression . 1. Acute exacerbation of chronic obstructive pulmonary disease in a patient with ongoing tobacco use since 40 years. 2. Acute hypoxic respiratory failure secondary to acute exacerbation of chronic obstructive pulmonary disease and acute bronchitis. 3. No definite consolidation seen on the chest x-ray. 4. acute bronchitis 4. allergic rhinitis 5. NON SPECIFIC ALVEOLITIS SEEN ON CT CHEST 6. URINARY RETENTION Plan . follow up ct in 3 months steroids d/c smoking DC ANTICHOLINERGIC IN NEB ALBUTEROL/NS 6 MIN W GERARD CHRISTIANSEN MD Jan 02, 2018 10:59
--- NOTE | 2018-01-02 11:43 | PDOC ---
Infectious Disease Note Subjective Subjective feeling well,, breathing is good unable to urinate says No fevers/chills Vital Sign Vital Signs Vital Signs Date Time Temp Pulse Resp B/P (MAP) Pulse Ox O2 Delivery O2 Flow Rate FiO2 01/02/18 10:49 97.8 104 22 141/94 (110) 94 Room Air 97.8 01/01/18 20:00 2.0 Physical Exam PHYSICAL EXAM GENERAL: Sleeping HEENT: Oral cavity, pharynx is clear. Some sinus congestion NECK: Supple, no JVD. LUNGS: Coarse, nonlabored HEART: S1, S2. ABDOMEN: Obese, soft, no guarding or rebound. EXTREMITIES: No clubbing or cyanosis. No gross edema. SKIN: Warm to touch without generalized signs of rash. NEUROLOGIC: Arouses easily to name PIV ok Labs Lab Laboratory Tests Test 01/01/18 16:22 01/01/18 21:12 01/02/18 07:29 Glucose (Fingerstick) 205 mg/dL (70-99) 302 mg/dL (70-99) 211 mg/dL (70-99) Micro Microbiology 12/27/17 Blood Culture - Final, Complete NO GROWTH AFTER 5 DAYS Objective Assessment Leukocytosis - increased - on Steroids AECOPD -better - CT reviewed Sinus congestion - better DM Ongoing tobacco abuse H/o Zoster Plan Plan of Care , po augmentin F/u labs and cults d/w family strongly adv to quit smoking bladder scan to check for retention FARZAD LIU MD Jan 02, 2018 11:43
--- NOTE | 2018-01-02 12:41 | PDOC ---
PROGRESS NOTES Chief Complaint Chief Complaint acute hypoxic resp failure - passed 6MW () COPD exacerbation acute bronchitis, recurrent dizzy/ lightheaded with h/o orthostatic hypotension H/O CAD WITH stents dm2 on insulin tobacco use disroder, HTN off meds HLD GERD depression BPH marijuana use h/o stroke with mild rt side weakness groin aron dermatitis recent shingles PPM acute on chronic back pain PVR 710 -cc BPH? History of Present Illness History of Present Illness NO inc in SOA Goes into coughing bursts BS high 300s- on solu 80 IV q6 PAssed 6 MW DIfficulty urinating started last night PVR 710 cc on bladder scan PLAN: FLomax now then daily urology consult Straight cath prn, first now Start novolog 10 TID August steroids to 6 IV q6 NO home O2 needs SP - lives in mobile home with Vitals Vitals Vital Signs Date Time Temp Pulse Resp B/P (MAP) Pulse Ox O2 Delivery O2 Flow Rate FiO2 01/02/18 11:50 96 Room Air 01/02/18 10:49 97.8 104 22 141/94 (110) 97.8 01/01/18 20:00 2.0 Physical Exam Physical Exam GENERAL: Sleeping HEENT: Oral cavity, pharynx is clear. Some sinus congestion NECK: Supple, no JVD. LUNGS: Coarse, nonlabored HEART: S1, S2. ABDOMEN: Obese, soft, no guarding or rebound. EXTREMITIES: No clubbing or cyanosis. No gross edema. SKIN: Warm to touch without generalized signs of rash. NEUROLOGIC: Arouses easily to name PIV ok General: Alert, Oriented X3, Cooperative Heart: Regular rate, Normal S1, Normal S2 Lungs: Wheezing (bl moderate wheezing with some rhonchis) Abdomen: Normal bowel sounds, Soft Extremities: No clubbing, No cyanosis Skin: No rashes Labs LABS Laboratory Tests Test 01/01/18 16:22 01/01/18 21:12 01/02/18 07:29 01/02/18 11:51 Glucose (Fingerstick) 205 mg/dL (70-99) 302 mg/dL (70-99) 211 mg/dL (70-99) 271 mg/dL (70-99) Review of Systems Review of Systems soa, wheezy, difficulty urinatin, no bladder pain, no abd issues, no fevers Assessment and Plan Assessmemt and Plan Problems Medical Problems: (1) COPD (chronic obstructive pulmonary disease) Status: Acute Comment Review of Relevant I have reviewed the following items bud (where applicable) has been applied. Labs Laboratory Tests Test 12/31/17 13:30 12/31/17 16:19 12/31/17 21:16 01/01/18 07:24 Vancomycin Level Trough 16.3 mcg/mL (10.0-20.0) Vancomycin Last Dose Date 12/31/17 Vancomycin Last Dose Time 0600 Glucose (Fingerstick) 265 mg/dL (70-99) 248 mg/dL (70-99) 124 mg/dL (70-99) Test 01/01/18 10:55 01/01/18 16:22 01/01/18 21:12 01/02/18 07:29 Glucose (Fingerstick) 265 mg/dL (70-99) 205 mg/dL (70-99) 302 mg/dL (70-99) 211 mg/dL (70-99) Test 01/02/18 11:51 Glucose (Fingerstick) 271 mg/dL (70-99) Laboratory Tests Test 01/01/18 16:22 01/01/18 21:12 01/02/18 07:29 01/02/18 11:51 Glucose (Fingerstick) 205 mg/dL (70-99) 302 mg/dL (70-99) 211 mg/dL (70-99) 271 mg/dL (70-99) Microbiology 12/27/17 Blood Culture - Final, Complete NO GROWTH AFTER 5 DAYS Medications Current Medications Methylprednisolone Sodium Succinate (SOLU-Medrol 125MG VIAL) 125 mg 1X ONCE IV Last administered on 12/27/17at 08:52; Start 12/27/17 at 08:30; Stop 12/27/17 at 08:31; Status DC Albuterol/ Ipratropium (Duoneb) 3 ml 1X ONCE NEB Last administered on at 08:42; Start 12/27/17 at 08:30; Stop 12/27/17 at 08:31; Status DC Benzonatate (Tessalon Perle) 100 mg 1X ONCE PO Last administered on 12/27/17at 08:40; Start 12/27/17 at 08:30; Stop 12/27/17 at 08:31; Status DC Morphine Sulfate (Morphine Sulfate) 2 mg 1X ONCE IV Last administered on at 08:55; Start 12/27/17 at 08:30; Stop 12/27/17 at 08:31; Status DC Ondansetron HCl (Zofran) 4 mg 1X ONCE IV Last administered on 12/27/17at 08:53; Start 12/27/17 at 08:30; Stop 12/27/17 at 08:31; Status DC Levofloxacin/ Dextrose 150 ml @ 100 mls/hr 1X ONCE IV Last administered on 12/27/17at 10:12; Start 12/27/17 at 10:00; Stop 12/27/17 at 11:29; Status DC Sodium Chloride 1,000 ml @ 1,000 mls/hr 1X ONCE IV Last administered on at 10:10; Start 12/27/17 at 10:00; Stop 12/27/17 at 10:59; Status DC Albuterol/ Ipratropium (Duoneb) 3 ml 1X ONCE NEB Last administered on at 10:10; Start 12/27/17 at 10:00; Stop 12/27/17 at 10:04; Status DC Ketorolac Tromethamine (Toradol 30mg Vial) 15 mg 1X ONCE IV Last administered on 12/27/17at 10:08; Start 12/27/17 at 10:00; Stop 12/27/17 at 10:04; Status DC Ondansetron HCl (Zofran) 4 mg PRN Q8HRS PRN IV NAUSEA/VOMITING; Start 12/27/17 at 10:15; Stop 12/28/17 at 10:14; Status DC Morphine Sulfate (Morphine Sulfate) 4 mg PRN Q2HR PRN IV PAIN Last administered on 12/27/17at 14:45; Start 12/27/17 at 10:15; Stop 12/28/17 at 10:14; Status DC Acetaminophen (Tylenol) 650 mg PRN Q4HRS PRN PO FEVER; Start 12/27/17 at 10:15; Stop 12/27/17 at 12:20; Status DC Insulin Human Lispro (HumaLOG) 0-9 UNITS TIDWMEALS SQ Last administered on 01/02at 08:41; Start 12/27/17 at 12:30 Dextrose (Dextrose 50%-Water Syringe) 12.5 gm PRN Q15MIN PRN IV SEE COMMENTS; Start 12/27/17 at 12:15 Acetaminophen (Tylenol) 650 mg PRN Q6HRS PRN PO FEVER Last administered on at 02:10; Start 12/27/17 at 12:15 Ondansetron HCl (Zofran) 4 mg PRN Q6HRS PRN IV NAUSEA/VOMITING 1ST CHOICE; Start 12/27/17 at 12:15 Morphine Sulfate (Morphine Sulfate) 2 mg PRN Q2HR PRN IV MODERATE TO SEVERE PAIN Last administered on 12/31/17at 06:02; Start 12/27/17 at 12:15 Tramadol HCl (Ultram) 50 mg PRN Q6HRS PRN PO MILD TO MODERATE PAIN Last administered on 01/01/18at 08:36; Start 12/27/17 at 12:15 Docusate Sodium (Colace) 100 mg PRN DAILY PRN PO HARD STOOLS Last administered on 12/31/17at 06:01; Start 12/27/17 at 12:15 Labetalol HCl (Normodyne Iv Push) 20 mg PRN Q2HR PRN IVP HYPERTENSION, SEE COMMENTS Last administered on 12/31/17at 07:59; Start 12/27/17 at 12:15 Albuterol/ Ipratropium (Duoneb) 3 ml RTQID NEB Last administered on 12/28/17at 07 :18; Start 12/27/17 at 16:00; Stop 12/28/17 at 09:49; Status DC Albuterol Sulfate (Ventolin Neb Soln) 2.5 mg PRN Q2HR PRN NEB SHORTNESS OF BREATH; Start 12/27/17 at 12:15 Guaifenesin (Mucinex) 600 mg BID PO Last administered on 01/02/18at 08:37; Start 12/27/17 at 13:00 Methylprednisolone Sodium Succinate (SOLU-Medrol 125MG VIAL) 125 mg Q8HRS IV Last administered on 12/30/17at 06:20; Start 12/27/17 at 14:00; Stop 12/30/17 at 08: 55; Status DC Apixaban (Eliquis) 5 mg BID PO Last administered on 12/27/17at 20:36; Start at 21:00; Stop 12/28/17 at 09:49; Status DC Aspirin (Jorge Luis Aspirin) 325 mg DAILY PO Last administered on 01/02/18 08:37; Start 12/28/17 at 09:00 Atorvastatin Calcium (Lipitor) 20 mg HS PO Last administered on 01/01/18 21:25 ; Start 12/27/17 at 21:00 Carvedilol (Coreg) 3.125 mg BIDWMEALS PO Last administered on 12/27/17 20:36; Start 12/27/17 at 21:00; Stop 12/28/17 at 09:49; Status DC Clopidogrel Bisulfate (Plavix) 75 mg DAILY PO Last administered on 12/27/17 16: 15; Start 12/27/17 at 13:00; Stop 12/28/17 at 09:49; Status DC Finasteride (Proscar) 5 mg DAILY PO Last administered on 01/02/18 08:38; Start 12/27/17 at 13:00 Nitroglycerin (Nitrostat) 0.4 mg PRN Q5MIN PRN SL CHEST PAIN; Start 12/27/17 at 12:15 Sertraline HCl (Zoloft) 50 mg DAILY PO Last administered on 01/02/18 08:38; Start 12/28/17 at 09:00 Tamsulosin HCl (Flomax) 0.4 mg DAILY PO Last administered on 12/28/17at 08:33; Start 12/27/17 at 13:00; Stop 12/28/17 at 09:49; Status DC Duloxetine HCl (Cymbalta) 60 mg DAILY PO Last administered on 01/02/18 08:37; Start 12/27/17 at 14:00 Non-Formulary Medication (Fluticasone/ Vilanterol (Breo Ellipta 200-25 Mcg INH) ) 2 puff DAILY PRN IH prn; Start 12/27/17 at 12:15; Status UNV Gabapentin (Neurontin) 300 mg TID PO Last administered on 01/02/18 08:38; Start 12/27/17 at 14:00 Hydroxychloroquine Sulfate (Plaquenil) 200 mg BID PO Last administered on 08:38; Start 12/27/17 at 14:00 Insulin Glargine (Lantus) 75 units BID SQ Last administered on 12/28/17at 08:45; Start 12/27/17 at 21:00; Stop 12/28/17 at 09:49; Status DC Lisinopril (Prinivil) 2.5 mg DAILY PO Last administered on 12/27/17at 16:15; Start 12/27/17 at 14:00; Stop 12/28/17 at 09:49; Status DC Metformin HCl (Glucophage Xr) 1,000 mg DAILYWBKFT PO Last administered on at 08:38; Start 01/01/18 at 08:00 Pantoprazole Sodium (Protonix) 40 mg DAILYAC PO Last administered on 12/31/17at 08:00; Start 12/27/17 at 14:00; Stop 12/31/17 at 08:57; Status DC Levofloxacin/ Dextrose 100 ml @ 100 mls/hr DAILY IV Last administered on at 08:38; Start 12/28/17 at 09:00; Stop 01/01/18 at 10:02; Status DC Info (Anti-Coagulation Monitoring By Pharmacy) 1 each PRN DAILY PRN MC SEE COMMENTS; Start 12/27/17 at 12:30; Stop 12/29/17 at 15:03; Status DC Iohexol (Omnipaque 300 Mg/ml) 75 ml 1X ONCE IV Last administered on 12/27/17at 12:30; Start 12/27/17 at 12:30; Stop 12/27/17 at 12:55; Status DC Info (CONTRAST GIVEN -- Rx MONITORING) 1 each PRN DAILY PRN MC SEE COMMENTS; Start 12/27/17 at 13:00; Stop 12/29/17 at 12:59; Status DC Budesonide (Pulmicort) 0.5 mg RTBID NEB Last administered on 01/02/18at 07:17; Start 12/27/17 at 20:00 Cefepime HCl (Maxipime) 1 gm Q12HR IVP ; Start 12/27/17 at 17:00; Stop 12/27/17 at 17:00; Status DC Cefepime HCl (Maxipime) 1 gm Q8HRS IVP Last administered on 01/01/18at 05:25; Start 12/27/17 at 17:00; Stop 01/01/18 at 10:02; Status DC Vancomycin HCl (Vanco Per Pharmacy) 1 each PRN DAILY PRN MC SEE COMMENTS Last administered on 12/31/17at 14:37; Start 12/27/17 at 16:45; Stop 01/01/18 at 10:07; Status DC Vancomycin HCl 2 gm/Sodium Chloride 500 ml @ 250 mls/hr ONCE ONCE IV Last administered on 12/27/17at 18:13; Start 12/27/17 at 17:00; Stop 12/27/17 at 18:59; Status DC Oxycodone HCl (Roxicodone) 10 mg QID PO Last administered on 12/27/17at 18:13; Start 12/27/17 at 17:30; Stop 12/27/17 at 19:06; Status DC Vancomycin HCl 1.5 gm/Sodium Chloride 500 ml @ 250 mls/hr Q12H IV Last administered on 12/29/17at 13:13; Start 12/28/17 at 06:00; Stop 12/29/17 at 14:49; Status DC Vancomycin HCl (Vancomycin Trough Level) 1 each 1X ONCE MC ; Start 12/29/17 at 05:30; Stop 12/29/17 at 05:31; Status DC Nicotine (Nicoderm Cq 21mg) 1 patch PRN DAILY PRN TD SMOKING CESSATION Last administered on 12/31/17at 11:46; Start 12/27/17 at 18:45; Stop 01/01/18 at 11:53; Status DC Oxycodone HCl (Roxicodone) 10 mg PRN QID PRN PO SEVERE PAIN Last administered on 01/02/18at 05:49; Start 12/27/17 at 19:15 Insulin Human Lispro (HumaLOG) 15 units 1X ONCE SQ Last administered on at 21:38; Start 12/27/17 at 21:15; Stop 12/27/17 at 21:16; Status DC Insulin Glargine (Lantus) 10 units 1X ONCE SQ Last administered on 12/28/17at 09 :10; Start 12/28/17 at 09:00; Stop 12/28/17 at 09:01; Status DC Insulin Glargine (Lantus) 85 units BID SQ ; Start 12/28/17 at 21:00; Stop at 21:00; Status DC Albuterol/ Ipratropium (Duoneb) 3 ml Q4HRS NEB Last administered on 01/02/18at 11:24; Start 12/28/17 at 12:00 Insulin Human Lispro (HumaLOG) 10 units TIDAC SQ Last administered on 12/29/17at 08:56; Start 12/28/17 at 11:30; Stop 12/29/17 at 10:02; Status DC Benzonatate (Tessalon Perle) 100 mg [id number] PO Last administered on 01/02/18at 08 :37; Start 12/28/17 at 11:00 Insulin Glargine (Lantus) 90 units BID SQ Last administered on 12/29/17 08:55; Start 12/28/17 at 21:00; Stop 12/29/17 at 10:02; Status DC Tizanidine HCl (Zanaflex) 2 mg PRN Q8HRS PRN PO MUSCLE SPASMS Last administered on 12/31/17at 16:44; Start 12/28/17 at 15:15 Sodium Chloride (Saline Mist Nasal) 1 karsten PRN Q1HR PRN NS NASAL CONGESTION Last administered on 12/31/17 14:14; Start 12/29/17 at 09:45 Insulin Glargine (Lantus) 100 units BID SQ Last administered on 12/30/17 08:58 ; Start 12/29/17 at 21:00; Stop 12/30/17 at 10:42; Status DC Insulin Human Lispro (HumaLOG) 15 units TIDAC SQ Last administered on 12/30/17at 08:58; Start 12/29/17 at 11:30; Stop 12/30/17 at 10:42; Status DC Insulin Glargine (Lantus) 10 units 1X ONCE SQ ; Start 12/29/17 at 11:00; Stop at 11:01; Status DC Lidocaine (Lidoderm) 1 patch DAILY TD Last administered on 01/02/18at 08:39; Start 12/29/17 at 11:00 Miscellaneous (Lidoderm Patch Removal) 1 ea QHS MC Last administered on at 21:00; Start 12/29/17 at 21:00 Promethazine HCl/ Codeine (Phenergan With Codeine) 5 ml PRN Q6HRS PRN PO COUGH Last administered on 01/01/18at 02:45; Start 12/29/17 at 10:00 Iohexol (Omnipaque 300 Mg/ml) 75 ml 1X ONCE IV Last administered on 12/29/17at 11:45; Start 12/29/17 at 11:45; Stop 12/29/17 at 11:46; Status DC Info (CONTRAST GIVEN -- Rx MONITORING) 1 each PRN DAILY PRN MC SEE COMMENTS; Start 12/29/17 at 11:45; Stop 12/31/17 at 11:44; Status DC Vancomycin HCl 1.25 gm/Sodium Chloride 250 ml @ 167 mls/hr Q8H IV Last administered on 12/30/17at 04:47; Start 12/29/17 at 21:00; Stop 12/30/17 at 13:21; Status DC Vancomycin HCl (Vancomycin Trough Level) 1 each 1X ONCE MC Last administered on 12/30/17at 13:14; Start 12/30/17 at 12:30; Stop 12/30/17 at 12:31; Status DC Methylprednisolone Sodium Succinate (SOLU-Medrol 125MG VIAL) 80 mg Q8HRS IV Last administered on 12/31/17at 05:48; Start 12/30/17 at 14:00; Stop 12/31/17 at 08: 57; Status DC Fluticasone Propionate (Flonase) 2 spray DAILY NS Last administered on at 08:38; Start 12/30/17 at 10:00 Insulin Glargine (Lantus) 50 units BID SQ Last administered on 12/30/17at 22:04; Start 12/30/17 at 21:00; Stop 12/31/17 at 11:44; Status DC Vancomycin HCl 1.5 gm/Sodium Chloride 500 ml @ 250 mls/hr Q8H IV Last administered on 01/01/18at 05:25; Start 12/30/17 at 14:00; Stop 01/01/18 at 10:02 ; Status DC Vancomycin HCl (Vancomycin Trough Level) 1 each 1X ONCE MC Last administered on 12/31/17at 13:30; Start 12/31/17 at 13:30; Stop 12/31/17 at 13:31; Status DC Methylprednisolone Sodium Succinate (SOLU-Medrol 125MG VIAL) 80 mg Q6HRS IV Last administered on 01/02/18at 05:43; Start 12/31/17 at 12:00 Pantoprazole Sodium (Protonix) 40 mg BIDAC PO Last administered on 01/02/18at 08 :37; Start 12/31/17 at 16:30 Montelukast Sodium (Singulair) 10 mg QHS PO Last administered on 01/01/18at 21: 25; Start 12/31/17 at 21:00 Insulin Glargine (Lantus) 30 units BID SQ Last administered on 01/02/18at 08:42 ; Start 12/31/17 at 21:00 Polyethylene Glycol (miraLAX PACKET) 17 gm BID PO Last administered on at 08:34; Start 12/31/17 at 19:30 Amoxicillin/ Clavulanate Potassium (Augmentin 875/ 125mg) 1 tab BID PO Last administered on 01/02/18at 08:37; Start 01/01/18 at 11:00 Albuterol Sulfate (Ventolin Neb Soln) 2.5 mg 1X ONCE NEB ; Start 01/01/18 at 12 :00; Stop 01/01/18 at 12:01; Status DC Nicotine (Nicoderm Cq 21mg) 1 patch PRN DAILY PRN TD SMOKING CESSATION; Start 01/01/18 at 12:00 Active Scripts Active Eliquis (Apixaban) 5 Mg Tablet 5 Mg PO BID Reported Oxycodone Hcl 10 Mg Tablet 1 Tab PO QID Breo Ellipta 200-25 Mcg INH (Fluticasone/Vilanterol) 1 Each Blst.w.dev 1 Each INH Tresiba Flextouch U-200 (Insulin Degludec) 200 Unit/1 Ml Insuln.pen 80 Unit SQ BID Tamsulosin Hcl 0.4 Mg Cap.er.24h 1 Cap PO DAILY Aspirin 325 Mg Tablet 1 Tab PO DAILY Prilosec Otc (Omeprazole Magnesium) 20 Mg Tablet.dr 1 Tab PO DAILY Cymbalta (Duloxetine Hcl) 60 Mg Capsule.dr 1 Cap PO DAILY Hydroxychloroquine Sulfate 200 Mg Tablet 1 Tab PO BID Finasteride 5 Mg Tablet 1 Tab PO DAILY Zoloft (Sertraline Hcl) 50 Mg Tablet 1 Tab PO DAILY Omeprazole 40 Mg Capsule.dr 1 Cap PO DAILY Metformin Hcl Er (Metformin Hcl) 1,000 Mg Tab.er.24 1,000 Mg PO DAILYWBKFT NITROGLYCERIN SubLingual (Nitroglycerin) 0.4 Mg Tab.subl 0.4 Mg SL PRN Q5MIN PRN Breo Ellipta 200-25 Mcg INH (Fluticasone/Vilanterol) 1 Each Blst.w.dev 2 Puff IH DAILY PRN Atorvastatin Calcium 20 Mg Tablet 20 Mg PO HS Gabapentin 300 Mg Capsule 300 Mg PO TID NEXT DOSE DUE AT 2 PM AND AT BEDTIME Carvedilol 3.125 Mg Tablet 1 Tab PO BID NEXT DOSE DUE WITH SUPPER TODAY Lisinopril 2.5 Mg Tablet 1 Tab PO DAILY NEXT DOSE DUE ON 11/05/14 Plavix (Clopidogrel Bisulfate) 75 Mg Tablet 1 Tab PO DAILY NEXT DOSE DUE ON 11/05/14 Prilosec (Omeprazole) 40 Mg Capsule.dr 40 Mg PO DAILY MAY TAKE ANY TIME Vitals/I & O Vital Sign - Last 24 Hours 01/01/18 01/01/18 01/01/18 01/01/18 12:47 15:00 16:07 17:11 Temp 97.8 97.8 Pulse 100 Resp 22 B/P (MAP) 168/98 (121) Pulse Ox 92 92 O2 Delivery Nasal Cannula Room Air Nasal Cannula Room Air O2 Flow Rate 2.0 2.0 01/01/18 01/01/18 01/01/18 01/01/18 19:00 19:59 20:00 20:00 Temp 97.5 97.5 Pulse 108 Resp 20 B/P (MAP) 136/93 (107) Pulse Ox 93 93 93 O2 Delivery Room Air Room Air Room Air Room Air O2 Flow Rate 2.0 01/01/18 01/01/18 01/01/18 01/02/18 21:24 23:00 23:41 03:00 Temp 97.6 97.6 97.6 97.6 Pulse 107 109 Resp 20 20 B/P (MAP) 131/94 (106) 158/107 (124) Pulse Ox 93 93 91 O2 Delivery Room Air Room Air 01/02/18 01/02/18 01/02/18 01/02/18 03:12 05:49 07:00 07:17 Temp 97.8 97.8 Pulse 104 Resp 22 B/P (MAP) 150/103 (119) Pulse Ox 94 93 O2 Delivery Room Air Room Air Room Air Room Air 01/02/18 01/02/18 01/02/18 08:00 10:49 11:50 Temp 97.8 97.8 Pulse 104 Resp 22 B/P (MAP) 141/94 (110) Pulse Ox 94 96 O2 Delivery Room Air Room Air Room Air Intake and Output 01/01/18 01/01/18 01/02/18 15:00 23:00 07:00 Intake Total 700 ml 1900 ml 240 ml Output Total 850 ml Balance 700 ml 1050 ml 240 ml SIXTO MARTINEZ MD Jan 02, 2018 12:41
[2018-01-02] MEDS ORDERED: TAMSULOSIN 0.4 MG CAP.ER.24H. PO ONE (12:45)
[2018-01-02 14:37] VITALS: BP 152/92
--- NOTE | 2018-01-02 14:51 | PDOC2 ---
UROLOGY CONSULT Date of Consult Date of Consult DATE: 01/02/18 TIME: 14:45 Reason for Consult Reason for Consult: Difficulty with urination Identification/Chief Complaint Chief Complaint Difficulty with urination Source Source: Caregiver, Patient History of Present Illness Reason for Visit: Patient admitted for COPD exacerbation. He started to have some difficulty urinating last night. He has been trying multiple times throughout last night and today and "only little bits of urine comes out." His bladder at this point feels "very full" and is uncomfortable. He admits a history of enlarged prostate, having had BPH for several years, but denies prostate cancer. He has been on flomax 1 tab daily for about ten years but he is not taking finasteride to his knowledge. Usually the flomax works just fine, but he started to have this trouble urinating last night. He denies dysuria, hematuria or flank pain. He is only having some lower belly pain, which he attributes to a full bladder. Past Medical History Cardiovascular: CAD, CHF, [place], Syncope, Hyperlipidemia Pulmonary: COPD CENTRAL NERVOUS SYSTEM: CVA, Periperal neuropathy GI: GERD Heme/Onc: Other Hepatobiliary: Cirrhosis Psych: Depression Musculoskeletal: Osteoarthritis Rheumatologic: Rheumatoid arthritis Infectious disease: No pertinent hx Renal/: Benign prostatic enlarg. Endocrine: Diabetes Past Surgical History Past Surgical History: Pacemaker, Hernia Repair, Other Family History Family History: Hypertension Social History <1 pack per day ALCOHOL: occassional Drugs: None Lives: with Family Current Problem List Problems: (1) Urinary retention (2) Butler catheter in place Current Medications Current Medications Current Medications Insulin Human Lispro (HumaLOG) 10 units TIDWMEALS SQ Last administered on at 13:20; Start 01/02/18 at 13:00 Methylprednisolone Sodium Succinate (SOLU-Medrol 125MG VIAL) 60 mg Q6HRS IV Last administered on 01/02/18at 13:10; Start 01/02/18 at 13:00 Tamsulosin HCl (Flomax) 0.4 mg 1X ONCE PO Last administered on 01/02/18at 13:10 ; Start 01/02/18 at 12:45; Stop 01/02/18 at 12:46; Status DC Tamsulosin HCl (Flomax) 0.4 mg QHS PO ; Start 01/02/18 at 21:00 Allergies Allergies: Coded Allergies: No Known Drug Allergies (Unverified , 12/27/17) ROS Review Of Systems: CONSTITUTIONAL: No fever or chills EYES: No recent changes SKIN: No rash or itching CARDIOVASCULAR: No chest pain, syncope, palpitations, or edema RESPIRATORY: No SOB or cough GASTROINTESTINAL: + lower belly/bladder pain NEUROLOGICAL: No headaches or weakness ENDOCRINE: No cold or heat intolerance GENITOURINARY: + retention, full bladder, frequency. No dysuria, hematuria MUSCULOSKELETAL: No back pain or joint pain LYMPHATICS: No enlarged lymph nodes PSYCHIATRIC: No anxiety or depression Physical Exam Physical Exam: General: cooperative, uncomfortable from full bladder. Eyes: conjunctiva anicteric, eyes full range of motion ENT: moist oral mucosa, normal dentition Neck: Trachea midline, no masses Respiratory: unlabored breathing, not using accessory muscles, Abdomen: nontender, nondistended, no hepatosplenomegaly, no masses Pelvic: Uncircumcised phallus, normal meatus. 18 hebrew coude catheter cleansed and inserted with mild difficulty using sterile technique. Patient tolerated procedure well. 750 ml of clear yellow urine return noted upon initial insert. Pt did report immediate relief upon butler catheter insertion. Balloon inflated to 10 ml and secured with statlock device. Vitals VITALS Vital Signs Date Time Temp Pulse Resp B/P (MAP) Pulse Ox O2 Delivery O2 Flow Rate FiO2 01/02/18 14:37 97.7 107 22 152/92 (112) 93 Room Air 97.7 01/01/18 20:00 2.0 Labs Labs Laboratory Tests Test 12/31/17 16:19 12/31/17 21:16 01/01/18 07:24 01/01/18 10:55 Glucose (Fingerstick) 265 mg/dL (70-99) 248 mg/dL (70-99) 124 mg/dL (70-99) 265 mg/dL (70-99) Test 01/01/18 16:22 01/01/18 21:12 01/02/18 07:29 01/02/18 11:51 Glucose (Fingerstick) 205 mg/dL (70-99) 302 mg/dL (70-99) 211 mg/dL (70-99) 271 mg/dL (70-99) Laboratory Tests Test 01/01/18 16:22 01/01/18 21:12 01/02/18 07:29 01/02/18 11:51 Glucose (Fingerstick) 205 mg/dL (70-99) 302 mg/dL (70-99) 211 mg/dL (70-99) 271 mg/dL (70-99) Assessment/Plan Assessment/Plan Pelvic: 18 hebrew coude catheter inserted with mild difficulty. Patient tolerated procedure well. 750 ml of clear yellow urine return noted upon initial insert. Pt did report immediate relief upon insertion Increase flomax from one tab daily to 1 tab BID for urinary retention No TAMARA done today, will defer until tomorrow. Leave butler catheter in place for 4-5 days to allow bladder to rest. If patient goes home prior to this he could go home with butler in place and have a voiding trial in our office as an outpatient. UA collected at the time of butler insertion. Will follow. ANH PAULSON APRN Jan 02, 2018 14:51
[2018-01-02 15:01] LABS: BILIRUBIN,URINE NEGATIVE (NEG); CLARITY,URINE CLEAR; COLOR,URINE YELLOW; NITRITE,URINE NEGATIVE (NEG); PROTEIN,URINE NEGATIVE (NEG-TRACE)
[2018-01-02 15:17] LABS: BACTERIA,URINE 0 /HPF (0-FEW); RBC,URINE 0 /HPF (0-2); SQUAMOUS EPITHELIAL CELL,UR OCC /LPF; WBC,URINE 0 /HPF (0-4)
[2018-01-02] MEDS ORDERED: ALBUTEROL SULFATE 2.5 MG/3 ML NEBU. NEB PRN (15:45)
[2018-01-02 19:00] VITALS: BP 151/100
[2018-01-02] MEDS: ATORVASTATIN CALCIUM 20 MG TABLET PO SCH (20:33)
[2018-01-02] MEDS: LACTOBACILLUS RHAMNOSUS GG 1 CAPSULE. PO SCH (20:33)
[2018-01-02] MEDS: TAMSULOSIN 0.4 MG CAP.ER.24H. PO SCH (20:34)
[2018-01-02] MEDS: MONTELUKAST SODIUM 10 MG TABLET. PO SCH (20:34)
[2018-01-02] MEDS: PATCH REMOVAL. MC SCH (20:42)
[2018-01-02] MEDS ORDERED: TAMSULOSIN 0.4 MG CAP.ER.24H. PO SCH (21:00)
[2018-01-02 23:00] VITALS: BP 120/77
[2018-01-03 02:43] VITALS: BP 147/98
[2018-01-03] MEDS: methylPREDNISolone SOD SUCC PF 125 MG/2 ML VIAL. IV SCH ×2 (05:55→11:52)
[2018-01-03 07:00] VITALS: BP 115/81
[2018-01-03] MEDS: BUDESONIDE 0.5 MG/2 ML NEBU. NEB SCH (07:47)
[2018-01-03] MEDS: INSULIN LISPRO 300 UNITS/3 ML INSULN.PEN. SQ SCH ×4 (08:00→11:59)
[2018-01-03] MEDS: LIDOCAINE (700MG/PATCH) PATCH. TD SCH (08:15)
[2018-01-03] MEDS: FLUTICASONE 50MCG/NASAL SPRAY 16GM BOTTLE. NS SCH (08:15)
[2018-01-03] MEDS: metFORMIN XR 500 MG TAB.ER.24H PO SCH (08:16)
[2018-01-03] MEDS: AMOXICILLIN/K CLAV 875/125MG TABLET. PO SCH (08:16)
[2018-01-03] MEDS: LACTOBACILLUS RHAMNOSUS GG 1 CAPSULE. PO SCH (08:17)
[2018-01-03] MEDS: GABAPENTIN 300 MG CAPSULE. PO SCH ×2 (08:17→15:04)
[2018-01-03] MEDS: FINASTERIDE 5 MG TABLET. PO SCH (08:17)
[2018-01-03] MEDS: TAMSULOSIN 0.4 MG CAP.ER.24H. PO SCH (08:17)
[2018-01-03] MEDS: DULoxetine HCL 30 MG CAPSULE.DR PO SCH (08:17)
[2018-01-03] MEDS: PANTOPRAZOLE 40 MG TABLET.DR. PO SCH (08:17)
[2018-01-03] MEDS: SERTRALINE 50 MG TABLET. PO SCH (08:17)
[2018-01-03] MEDS: HYDROXYCHLOROQUINE 200 MG TABLET PO SCH (08:18)
[2018-01-03] MEDS: BENZONATATE 100 MG CAPSULE. PO SCH ×2 (08:18→15:04)
[2018-01-03] MEDS: ASPIRIN 325 MG TABLET PO SCH (08:18)
[2018-01-03] MEDS: INSULIN GLARGINE 300 UNITS/3 ML INSULN.PEN. SQ SCH (08:27)
[2018-01-03] MEDS: POLYETHYLENE GLYCOL 3350 17 GM PACKET. PO SCH (08:28)
--- NOTE | 2018-01-03 08:42 | PDOC ---
PULMONARY PROGRESS NOTES Subjective PAT NOT MORE SOA NOW WITH URINARY RETENTION Vitals Vital Signs Date Time Temp Pulse Resp B/P (MAP) Pulse Ox O2 Delivery O2 Flow Rate FiO2 01/03/18 07:48 95 Room Air 01/03/18 07:00 97.6 103 18 115/81 (92) 97.6 01/02/18 20:00 2.0 ROS: No Nausea, No Chest Pain, No Abdominal Pain General: Alert, No acute distress Lungs: Wheezing (bl moderate wheezing with some rhonchis) Cardiovascular: S1, S2 Abdomen: Soft, Non-tender, Other Neuro Exam: Alert Extremities: No Edema Skin: Warm Labs Laboratory Tests Test 01/01/18 10:55 01/01/18 16:22 01/01/18 21:12 01/02/18 07:29 Glucose (Fingerstick) 265 mg/dL (70-99) 205 mg/dL (70-99) 302 mg/dL (70-99) 211 mg/dL (70-99) Test 01/02/18 11:51 01/02/18 14:25 01/02/18 17:03 01/02/18 20:33 Glucose (Fingerstick) 271 mg/dL (70-99) 180 mg/dL (70-99) 137 mg/dL (70-99) Urine Collection Type Unknown Urine Color Yellow Urine Clarity Clear Urine pH 7.0 Urine Specific [place] >=1.030 Urine Protein Negative mg/dL (NEG-TRACE) Urine Glucose (UA) >=1000 mg/dL (NEG) Urine Ketones (Stick) Negative mg/dL (NEG) Urine Blood Negative (NEG) Urine Nitrite Negative (NEG) Urine Bilirubin Negative (NEG) Urine Urobilinogen Dipstick 1.0 mg/dL (0.2 mg/dL) Urine Leukocyte Esterase Negative (NEG) Urine RBC 0 /HPF (0-2) Urine WBC 0 /HPF (0-4) Urine Squamous Epithelial Cells Occ /LPF Urine Transitional Epithelial Cells Occ /LPF Urine Bacteria 0 /HPF (0-FEW) Test 01/03/18 07:07 Glucose (Fingerstick) 86 mg/dL (70-99) Laboratory Tests Test 01/02/18 11:51 01/02/18 14:25 01/02/18 17:03 01/02/18 20:33 Glucose (Fingerstick) 271 mg/dL (70-99) 180 mg/dL (70-99) 137 mg/dL (70-99) Urine Collection Type Unknown Urine Color Yellow Urine Clarity Clear Urine pH 7.0 Urine Specific [place] >=1.030 Urine Protein Negative mg/dL (NEG-TRACE) Urine Glucose (UA) >=1000 mg/dL (NEG) Urine Ketones (Stick) Negative mg/dL (NEG) Urine Blood Negative (NEG) Urine Nitrite Negative (NEG) Urine Bilirubin Negative (NEG) Urine Urobilinogen Dipstick 1.0 mg/dL (0.2 mg/dL) Urine Leukocyte Esterase Negative (NEG) Urine RBC 0 /HPF (0-2) Urine WBC 0 /HPF (0-4) Urine Squamous Epithelial Cells Occ /LPF Urine Transitional Epithelial Cells Occ /LPF Urine Bacteria 0 /HPF (0-FEW) Test 01/03/18 07:07 Glucose (Fingerstick) 86 mg/dL (70-99) Medications Active Scripts Medications Dose Route/Sig Max Daily Dose Days Date Category Dose Instructions Oxycodone Hcl 10 Mg Tablet 1 Tab PO QID 12/27/17 Reported Breo Ellipta 200-25 Mcg INH (Fluticasone/Vilanterol) 1 Each Blst.w.dev 1 Each INH 12/27/17 Reported Tresiba Flextouch U-200 (Insulin Degludec) 200 Unit/1 Ml Insuln.pen 80 Unit SQ BID 11/28/17 Reported Tamsulosin Hcl 0.4 Mg Cap.er.24h 1 Cap PO DAILY 11/28/17 Reported Aspirin 325 Mg Tablet 1 Tab PO DAILY 11/28/17 Reported Prilosec Otc (Omeprazole Magnesium) 20 Mg Tablet.dr 1 Tab PO DAILY 11/28/17 Reported Cymbalta (Duloxetine Hcl) 60 Mg Capsule.dr 1 Cap PO DAILY 11/28/17 Reported Eliquis (Apixaban) 5 Mg Tablet 5 Mg PO BID 10/08/16 Rx Hydroxychloroquine Sulfate 200 Mg Tablet 1 Tab PO BID 10/07/16 Reported Finasteride 5 Mg Tablet 1 Tab PO DAILY 10/07/16 Reported Zoloft (Sertraline Hcl) 50 Mg Tablet 1 Tab PO DAILY 10/07/16 Reported Omeprazole 40 Mg Capsule.dr 1 Cap PO DAILY 10/07/16 Reported Metformin Hcl Er (Metformin Hcl) 1,000 Mg Tab.er.24 1,000 Mg PO DAILYWBKFT 10/07/16 Reported NITROGLYCERIN SubLingual (Nitroglycerin) 0.4 Mg Tab.subl 0.4 Mg SL PRN Q5MIN PRN 10/07/16 Reported Breo Ellipta 200-25 Mcg INH (Fluticasone/Vilanterol) 1 Each Blst.w.dev 2 Puff IH DAILY PRN 10/07/16 Reported Atorvastatin Calcium 20 Mg Tablet 20 Mg PO HS 12/17/14 Reported Gabapentin 300 Mg Capsule 300 Mg PO TID 11/03/14 Reported NEXT DOSE DUE AT 2 PM AND AT BEDTIME Carvedilol 3.125 Mg Tablet 1 Tab PO BID 09/25/14 Reported NEXT DOSE DUE WITH SUPPER TODAY Lisinopril 2.5 Mg Tablet 1 Tab PO DAILY 09/25/14 Reported NEXT DOSE DUE ON 11/05/14 Plavix (Clopidogrel Bisulfate) 75 Mg Tablet 1 Tab PO DAILY 09/25/14 Reported NEXT DOSE DUE ON 11/05/14 Prilosec (Omeprazole) 40 Mg Capsule.dr 40 Mg PO DAILY 07/11/13 Reported MAY TAKE ANY TIME Comments ct reviewed 1. No CT evidence of central pulmonary emboli. 2. Mediastinal lymph nodes of borderline size. 3. Minimal patchy bilateral upper lobe groundglass opacities may reflect inflammation, edema or scarring. 4. Moderate coronary artery calcifications. Impression . 1. Acute exacerbation of chronic obstructive pulmonary disease in a patient with ongoing tobacco use since 40 years. 2. Acute hypoxic respiratory failure secondary to acute exacerbation of chronic obstructive pulmonary disease and acute bronchitis. 3. No definite consolidation seen on the chest x-ray. 4. acute bronchitis 4. allergic rhinitis 5. NON SPECIFIC ALVEOLITIS SEEN ON CT CHEST 6. URINARY RETENTION Plan . follow up ct in 3 months steroids d/c smoking DC ANTICHOLINERGIC IN NEB ALBUTEROL/NS 6 MIN W GERARD CHRISTIANSEN MD Jan 03, 2018 08:42
[2018-01-03] MEDS ORDERED: PHENAZOPYRIDINE 200 MG TABLET. PO PRN (08:45)
--- NOTE | 2018-01-03 10:44 | PDOC ---
Infectious Disease Note Subjective Subjective feeling well,, breathing is good No fevers/chills not happy with catheter Vital Sign Vital Signs Vital Signs Date Time Temp Pulse Resp B/P (MAP) Pulse Ox O2 Delivery O2 Flow Rate FiO2 01/03/18 07:48 95 Room Air 01/03/18 07:00 97.6 103 18 115/81 (92) 97.6 01/02/18 20:00 2.0 Physical Exam PHYSICAL EXAM GENERAL: Sleeping HEENT: Oral cavity, pharynx is clear. Some sinus congestion NECK: Supple, no JVD. LUNGS: Coarse, nonlabored HEART: S1, S2. ABDOMEN: Obese, soft, no guarding or rebound. EXTREMITIES: No clubbing or cyanosis. No gross edema. SKIN: Warm to touch without generalized signs of rash. NEUROLOGIC: Arouses easily to name PIV ok Labs Lab Laboratory Tests Test 01/02/18 11:51 01/02/18 14:25 01/02/18 17:03 01/02/18 20:33 Glucose (Fingerstick) 271 mg/dL (70-99) 180 mg/dL (70-99) 137 mg/dL (70-99) Urine Collection Type Unknown Urine Color Yellow Urine Clarity Clear Urine pH 7.0 Urine Specific [place] >=1.030 Urine Protein Negative mg/dL (NEG-TRACE) Urine Glucose (UA) >=1000 mg/dL (NEG) Urine Ketones (Stick) Negative mg/dL (NEG) Urine Blood Negative (NEG) Urine Nitrite Negative (NEG) Urine Bilirubin Negative (NEG) Urine Urobilinogen Dipstick 1.0 mg/dL (0.2 mg/dL) Urine Leukocyte Esterase Negative (NEG) Urine RBC 0 /HPF (0-2) Urine WBC 0 /HPF (0-4) Urine Squamous Epithelial Cells Occ /LPF Urine Transitional Epithelial Cells Occ /LPF Urine Bacteria 0 /HPF (0-FEW) Test 01/03/18 07:07 Glucose (Fingerstick) 86 mg/dL (70-99) Micro Microbiology 12/27/17 Blood Culture - Final, Complete NO GROWTH AFTER 5 DAYS Objective Assessment Leukocytosis - increased - on Steroids AECOPD -better - CT reviewed Sinus congestion - better DM Ongoing tobacco abuse H/o Zoster Plan Plan of Care , po augmentin F/u labs and cults d/w family strongly adv to quit smoking d/c ok from ID stand point luke as per Urology FARZAD LIU MD Jan 03, 2018 10:43
[2018-01-03 11:00] VITALS: BP 120/87
[2018-01-03] MEDS ORDERED: GUAI600T47 PO (11:04)
[2018-01-03] MEDS ORDERED: AMOX1TAB11 PO (11:04)
[2018-01-03] MEDS ORDERED: TAMS0.4C2 PO (11:04)
[2018-01-03] MEDS ORDERED: BENZ-8 PO (11:04)
[2018-01-03] MEDS ORDERED: OXYC10TA PO (11:04)
[2018-01-03] MEDS ORDERED: FLUT16SP NS (11:04)
[2018-01-03] MEDS ORDERED: MONT10TA9 PO (11:04)
[2018-01-03] MEDS ORDERED: IPRA3AMP29 NEB (11:04)
--- NOTE | 2018-01-03 11:07 | PDOC3 ---
Discharge Summary Visit Information Date of Admission: Dec 27, 2017 Date of Discharge: Jan 03, 2018 Admitting Diagnosis Comment: acute hypoxic resp failure - passed 6MW () COPD exacerbation acute bronchitis, recurrent dizzy/ lightheaded with h/o orthostatic hypotension H/O CAD WITH stents dm2 on insulin tobacco use disroder, HTN off meds HLD GERD depression BPH marijuana use h/o stroke with mild rt side weakness groin aron dermatitis recent shingles PPM acute on chronic back pain PVR 710 -cc BPH? Final Diagnosis Problems Medical Problems: (1) COPD (chronic obstructive pulmonary disease) Status: Acute Brief Hospital Course Allergies Allergies Coded Allergies Type Severity Reaction Last Updated Verified No Known Drug Allergies 12/27/17 No Vital Signs Vital Signs Date Time Temp Pulse Resp B/P (MAP) Pulse Ox O2 Delivery O2 Flow Rate FiO2 01/03/18 08:00 Room Air 01/03/18 07:48 95 01/03/18 07:00 97.6 103 18 115/81 (92) 97.6 01/02/18 20:00 2.0 Lab Results Laboratory Tests Test 01/01/18 16:22 01/01/18 21:12 01/02/18 07:29 01/02/18 11:51 Glucose (Fingerstick) 205 mg/dL (70-99) 302 mg/dL (70-99) 211 mg/dL (70-99) 271 mg/dL (70-99) Test 01/02/18 14:25 01/02/18 17:03 01/02/18 20:33 01/03/18 07:07 Urine Collection Type Unknown Urine Color Yellow Urine Clarity Clear Urine pH 7.0 Urine Specific [place] >=1.030 Urine Protein Negative mg/dL (NEG-TRACE) Urine Glucose (UA) >=1000 mg/dL (NEG) Urine Ketones (Stick) Negative mg/dL (NEG) Urine Blood Negative (NEG) Urine Nitrite Negative (NEG) Urine Bilirubin Negative (NEG) Urine Urobilinogen Dipstick 1.0 mg/dL (0.2 mg/dL) Urine Leukocyte Esterase Negative (NEG) Urine RBC 0 /HPF (0-2) Urine WBC 0 /HPF (0-4) Urine Squamous Epithelial Cells Occ /LPF Urine Transitional Epithelial Cells Occ /LPF Urine Bacteria 0 /HPF (0-FEW) Glucose (Fingerstick) 180 mg/dL (70-99) 137 mg/dL (70-99) 86 mg/dL (70-99) Laboratory Tests Test 01/02/18 11:51 01/02/18 14:25 01/02/18 17:03 01/02/18 20:33 Glucose (Fingerstick) 271 mg/dL (70-99) 180 mg/dL (70-99) 137 mg/dL (70-99) Urine Collection Type Unknown Urine Color Yellow Urine Clarity Clear Urine pH 7.0 Urine Specific [place] >=1.030 Urine Protein Negative mg/dL (NEG-TRACE) Urine Glucose (UA) >=1000 mg/dL (NEG) Urine Ketones (Stick) Negative mg/dL (NEG) Urine Blood Negative (NEG) Urine Nitrite Negative (NEG) Urine Bilirubin Negative (NEG) Urine Urobilinogen Dipstick 1.0 mg/dL (0.2 mg/dL) Urine Leukocyte Esterase Negative (NEG) Urine RBC 0 /HPF (0-2) Urine WBC 0 /HPF (0-4) Urine Squamous Epithelial Cells Occ /LPF Urine Transitional Epithelial Cells Occ /LPF Urine Bacteria 0 /HPF (0-FEW) Test 01/03/18 07:07 Glucose (Fingerstick) 86 mg/dL (70-99) Brief Hospital Course Mr. Whitt is a 62 old heavyset smoker, lives in a mobile home and everybody else in that home is smoking, admitted because of severe COPD exacerbation, very badly wheezing needing very high doses of steroids like 60 IV every 6hrs. Comanagement pulmonary. No real pneumonia on chest x-ray. Smoking cessation was done every day of rounding. He vows he will not smoke because it took a while for him to actually reasonably breathe appropriately. He would get winded just walking short distances. Course remarkable for developing urinary retention, 710 mL of urine postvoid residual. Comanage with urology, to keep Butler catheter and trial of voiding 4-5 days' time as outpatient with them. I have Rx Ing some steroids, nebs, cough medicine, Augmentin. Consults performed pulmonary, ID, urology Procedures performed butler catheter insertion Discharge time 32 minutes with 50% DC education counseling, multiple Rx, smoking cessation, discussed with Dr. Dubon. Discharge Information Condition at Discharge: Improved, Stable Disposition/Orders: D/C to Home Scheduled Amoxicillin/Potassium Clav (Amox Tr-K Clv 875-125 Mg Tab) 1 Each Tablet, 1 TAB PO BID for 7 Days, #14 Prescribed by: SIXTO MARTINEZ on 01/03/18 1104 Apixaban (Eliquis) 5 Mg Tablet, 5 MG PO BID, #60 Ref 3 Prescribed by: MEENA GARCES on 10/08/16 1409 Last Action: Continued on 12/27/171215 by JORDI CASTREJON MD Aspirin (Aspirin) 325 Mg Tablet, 1 TAB PO DAILY, #30 Ref 5 (Reported) Entered as Reported by: PENNY NICHOLE on 11/28/17 1528 Last Taken: Unknown Dose on 12/26/17 Last Action: Last Taken Edited on 12/27 1315 by MAK LORENZO Atorvastatin Calcium (Atorvastatin Calcium) 20 Mg Tablet, 20 MG PO HS for FOR CHOLESTEROL, #30 Ref 0 (Reported) Entered as Reported by: OCHOA RODRIGUEZ on 12/17/14 1420 Last Action: Continued on 12/27/171215 by JORDI CASTREJON MD Benzonatate (Benzonatate) 100 Mg Capsule, 100 MG PO [id number] for 7 Days, #21 Prescribed by: SIXTO MARTINEZ on 01/03/18 1104 Carvedilol (Carvedilol) 3.125 Mg Tablet, 1 TAB PO BID, #60 Ref 3 (Reported) NEXT DOSE DUE WITH SUPPER TODAY Entered as Reported by: PATRIC MIRANDA on 09/25/14 1613 Last Action: Continued on 12/27/171215 by JORDI CASTREJON MD Clopidogrel Bisulfate (Plavix) 75 Mg Tablet, 1 TAB PO DAILY, #90 Ref 1 (Reported ) NEXT DOSE DUE ON 11/05/14 Entered as Reported by: PATRIC MIRANDA on 09/25/14 1613 Last Action: Continued on 12/27/171215 by JORDI CASTREJON MD Duloxetine Hcl (Cymbalta) 60 Mg Capsule.dr, 1 CAP PO DAILY, #90 Ref 3 (Reported) Entered as Reported by: PENNY NICHOLE on 11/28/17 1528 Last Action: Converted on 12/27/171215 by JORDI CASTREJON MD Finasteride (Finasteride) 5 Mg Tablet, 1 TAB PO DAILY, #30 Ref 11 (Reported) Entered as Reported by: KRISTIE BROWN on 10/07/161746 Last Action: Continued on 12/27/171215 by JORDI CASTREJON MD Fluticasone Propionate (Fluticasone Propionate Nasal [place]) 16 Gm [place].susp, 2 SPRAY NS DAILY for 7 Days Prescribed by: SIXTO MARTINEZ on 01/03/18 1104 Gabapentin (Gabapentin) 300 Mg Capsule, 300 MG PO TID, (Reported) NEXT DOSE DUE AT 2 PM AND AT BEDTIME Entered as Reported by: ZE REY on 11/03/14 0841 Last Taken: Unknown Dose on 12/27/17 0800 Last Action: Last Taken Edited on 12/27/17 1315 by MAK LORENZO Guaifenesin (Mucinex) 600 Mg Tablet.er, 600 MG PO BID for 7 Days, #14 Prescribed by: SIXTO MARTINEZ on 01/03/18 1104 Hydroxychloroquine Sulfate (Hydroxychloroquine Sulfate) 200 Mg Tablet, 1 TAB PO BID, #180 Ref 1 (Reported) Entered as Reported by: KRISTIE BROWN on 10/07/161746 Last Action: Converted on 12/27/171215 by JORDI CASTREJON MD Insulin Degludec (Tresiba Flextouch U-200) 200 Unit/1 Ml Insuln.pen, 80 UNIT SQ BID, (Reported) Entered as Reported by: DAVID MCGRAW on 11/28/171952 Last Taken: Unknown Dose on 12/26/17 Last Action: Edited on 12/27/17 1315 by MAK LORENZO Ipratropium/Albuterol Sulfate (Duoneb 0.5-3(2.5) Mg/3 Ml) 3 Ml Ampul.neb, 3 ML NEB Q6HRS for 30 Days, #120 Prescribed by: SIXTO MARTINEZ on 01/03/18 1104 Lisinopril (Lisinopril) 2.5 Mg Tablet, 1 TAB PO DAILY, #30 Ref 5 (Reported) NEXT DOSE DUE ON 11/05/14 Entered as Reported by: PATRIC MIRANDA on 09/25/14 1613 Last Action: Converted on 12/27/176 by JORDI CASTREJON MD Metformin Hcl (Metformin Hcl Er) 1,000 Mg Tab.er.24, 1,000 MG PO DAILYWBKFT for ANTI-DIABETIC, Ref 0 (Reported) Entered as Reported by: KRISTIE BROWN on 10/07/161744 Last Action: Converted on 12/27/171215 by OJRDI CASTREJON MD Montelukast Sodium (Montelukast Sodium Tablet) 10 Mg Tablet, 10 MG PO QHS for 7 Days, #7 Prescribed by: SIXTO MARTINEZ on 01/03/18 1104 Omeprazole (Prilosec) 40 Mg Capsule.dr, 40 MG PO DAILY, (Reported) MAY TAKE ANY TIME Entered as Reported by: KESHA SALCEDO on 07/11/13 0853 Last Action: HELD on 12/27/171215 by JORDI CASTREJON MD Omeprazole (Omeprazole) 40 Mg Capsule.dr, 1 CAP PO DAILY, #30 Ref 3 (Reported) Entered as Reported by: KRISTIE BROWN on 10/07/161745 Last Taken: Unknown Dose on 12/26/17 Last Action: Last Taken Edited on 12/27 1315 by MAK LORENZO Omeprazole Magnesium (Prilosec Otc) 20 Mg Tablet.dr, 1 TAB PO DAILY, #30 Ref 3 ( Reported) Entered as Reported by: PENNY NICHOLE on 11/28/17 1528 Last Action: HELD on 12/27/171215 by JORDI CASTREJON MD Sertraline Hcl (Zoloft) 50 Mg Tablet, 1 TAB PO DAILY, #30 Ref 2 (Reported) Entered as Reported by: KRISTIE BROWN on 10/07/161745 Last Action: Continued on 12/27/171215 by JORDI CASTREJON MD Tamsulosin Hcl (Tamsulosin Hcl) 0.4 Mg Cap.er.24h, 1 CAP PO BID, #60 Ref 5 Prescribed by: SIXTO MARTINEZ on 01/03/18 1104 Scheduled PRN Fluticasone/Vilanterol (Breo Ellipta 200-25 Mcg INH) 1 Each Blst.w.dev, 2 PUFF IH DAILY PRN for prn, (Reported) Entered as Reported by: KRISTIE BROWN on 10/07/161741 Last Action: Converted on 12/27/171215 by JORDI CASTREJON MD Nitroglycerin (NITROGLYCERIN SubLingual) 0.4 Mg Tab.subl, 0.4 MG SL PRN Q5MIN PRN for CHEST PAIN, (Reported) Entered as Reported by: KRISTIE BROWN on 10/07/16 7116 Last Action: Continued on 12/27/17 1216 by JORDI CASTREJON MD Oxycodone Hcl (Oxycodone Hcl) 10 Mg Tablet, 1 TAB PO QID PRN for PAIN, #30 Prescribed by: SIXTO MARTINEZ on 01/03/18 1104 Miscellaneous Medications Fluticasone/Vilanterol (Breo Ellipta 200-25 Mcg INH) 1 Each Blst.w.dev, 1 EACH INH, (Reported) Entered as Reported by: MAK LORENZO on 12/27/17 1315 Last Taken: Unknown Dose on 12/27/17 Last Action: New Order on 12/27/171314 by SIXTO MORAN MD Jan 03, 2018 11:07
[2018-01-03] MEDS ORDERED: PROAIR HFA8.5 GM INH (11:10)
[2018-01-03] MEDS: oxyCODONE IR 5 MG TABLET PO PRN (11:52)
--- NOTE | 2018-01-03 12:23 | PDOC ---
SUBJECTIVE Subjective Pt is complaining of a lot of pain when urine comes out of the butler catheter, but it is draining well. OBJECTIVE Objective Physical Exam: General appearance: Alert and Oriented Head: Normocephalic, without obvious abnormality Eyes: conjunctivae/corneas clear. PERRL, EOM's intact. Fundi benign Lungs: regular respirations, non labored breathing Abdomen: soft, non-tender. Bowel sounds normal. No masses, no organomegaly Pelvic: butler catheter draining clear yellow urine, appears in good condition. Statlock appears a little tight. Vital Signs Vital Signs Date Time Temp Pulse Resp B/P (MAP) Pulse Ox O2 Delivery O2 Flow Rate FiO2 01/03/18 11:52 18 94 Room Air 2.0 01/03/18 11:00 97.7 110 18 120/87 (98) 94 3L 97.7 01/03/18 08:00 Room Air 01/03/18 07:48 95 Room Air 01/03/18 07:00 97.6 103 18 115/81 (92) 92 3L 97.6 01/03/18 02:43 97.7 109 20 147/98 (114) 95 Room Air 97.7 01/02/18 23:00 97.9 101 19 120/77 (91) 91 Nasal Cannula 97.9 01/02/18 20:00 Room Air 2.0 01/02/18 19:38 Room Air 01/02/18 19:00 97.6 110 20 151/100 (117) 91 Room Air 97.6 01/02/18 16:23 18 93 Room Air 2.0 01/02/18 16:10 Room Air 01/02/18 15:21 20 93 Room Air 2.0 01/02/18 14:37 97.7 107 22 152/92 (112) 93 Room Air 97.7 I & O Intake and Output 01/03/18 07:00 Intake Total 1560 ml Output Total 3450 ml Balance -1890 ml Intake Oral 1560 ml Output Urine Total 3450 ml # Bowel Movements 1 PHYSICAL EXAM Physical Exam Physical Exam: General appearance: Alert and Oriented Head: Normocephalic, without obvious abnormality Eyes: conjunctivae/corneas clear. PERRL, EOM's intact. Fundi benign Lungs: regular respirations, non labored breathing Abdomen: soft, non-tender. Bowel sounds normal. No masses, no organomegaly Pelvic: butler catheter draining clear yellow urine, appears in good condition. Statlock device is a little tight. ASSESSMENT/PLAN Assessment/Plan Continue Flomax BID Continue pyridium TID PRN catheter discomfort. Bladder scan is only 25-50 ml, butler catheter draining well. DIAMOND SETTER removed statlock sticker and patient reported immediate relief. Device was secured too tightly for patient and this was contributing to his pain. Butler catheter secured with leg straps instead. Pt now able to walk a little and eat lunch in relative comfort. Will coordinate with schedulers to get him an appointment for voiding trial in a few days. Could go home later today whenever medical team is ready as long as he goes home with BID flomax, prn pyridium and butler catheter in place. Patient will follow up with Dr. Craig at 9 am this coming Monday (01/05) at the [place] location for voiding trial: [address] [place] [address]. [facility] [address]. Phone number is [phone]. Nursing staff to teach butler catheter care and provide leg and night bags and other catheter related accessories as appropriate prior to discharge. Problems: (1) Butler catheter in place COMMENT Lab Laboratory Tests Test 01/02/18 14:25 01/02/18 17:03 01/02/18 20:33 01/03/18 07:07 Urine Collection Type Unknown Urine Color Yellow Urine Clarity Clear Urine pH 7.0 Urine Specific [place] >=1.030 Urine Protein Negative mg/dL (NEG-TRACE) Urine Glucose (UA) >=1000 mg/dL (NEG) Urine Ketones (Stick) Negative mg/dL (NEG) Urine Blood Negative (NEG) Urine Nitrite Negative (NEG) Urine Bilirubin Negative (NEG) Urine Urobilinogen Dipstick 1.0 mg/dL (0.2 mg/dL) Urine Leukocyte Esterase Negative (NEG) Urine RBC 0 /HPF (0-2) Urine WBC 0 /HPF (0-4) Urine Squamous Epithelial Cells Occ /LPF Urine Transitional Epithelial Cells Occ /LPF Urine Bacteria 0 /HPF (0-FEW) Glucose (Fingerstick) 180 mg/dL (70-99) 137 mg/dL (70-99) 86 mg/dL (70-99) ANH PAULSON APRN Jan 03, 2018 12:23
[2018-01-03] MEDS ORDERED: IPRATRPIUM/ALBUTEROL 0.5/2.5MG 3 ML NEBU. NEB SCH (13:00)
[2018-01-03] MEDS ORDERED: OXYBUTYNIN CHLORIDE 5 MG TABLET PO SCH (14:00)
--- NOTE | 2018-01-03 14:41 | EKG ---
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
[2018-01-03 15:00] VITALS: BP 110/71
== END 2018-01-03 16:30 | disposition home or self-care (01) | DRG 871 ==
LOC: ER 07:59 → 5 SOUTH 10:04
PROVIDERS: ADMIT Internal Medicine; ATTEND Internal Medicine
DX: A41.9 Sepsis, unspecified organism (principal); J96.01 Acute respiratory failure with hypoxia; J44.1 Chronic obstructive pulmonary disease with (acute) exacerbation; J44.0 Chronic obstructive pulmonary disease with (acute) lower respiratory infection; I69.351 Hemiplegia and hemiparesis following cerebral infarction affecting right dominant side; K74.60 Unspecified cirrhosis of liver; E11.65 Type 2 diabetes mellitus with hyperglycemia; T38.0X5A Adverse effect of glucocorticoids and synthetic analogues, initial encounter; E11.42 Type 2 diabetes mellitus with diabetic polyneuropathy; B37.2 Candidiasis of skin and nail; E78.5 Hyperlipidemia, unspecified; G89.29 Other chronic pain; F17.210 Nicotine dependence, cigarettes, uncomplicated; F12.90 Cannabis use, unspecified, uncomplicated; E78.00 Pure hypercholesterolemia, unspecified; F32.9 Major depressive disorder, single episode, unspecified; M54.9 Dorsalgia, unspecified; M06.9 Rheumatoid arthritis, unspecified; K21.9 Gastro-esophageal reflux disease without esophagitis; M47.812 Spondylosis without myelopathy or radiculopathy, cervical region; J30.9 Allergic rhinitis, unspecified; J20.9 Acute bronchitis, unspecified; I25.10 Atherosclerotic heart disease of native coronary artery without angina pectoris; I11.0 Hypertensive heart disease with heart failure; N40.1 Benign prostatic hyperplasia with lower urinary tract symptoms; R33.8 Other retention of urine; I50.9 Heart failure, unspecified; I25.2 Old myocardial infarction; Y92.89 Other specified places as the place of occurrence of the external cause; Z79.01 Long term (current) use of anticoagulants; Z71.6 Tobacco abuse counseling; Z95.5 Presence of coronary angioplasty implant and graft; Z79.4 Long term (current) use of insulin; Z79.82 Long term (current) use of aspirin; Z82.49 Family history of ischemic heart disease and other diseases of the circulatory system; Z86.718 Personal history of other venous thrombosis and embolism; Z87.01 Personal history of pneumonia (recurrent); Z90.49 Acquired absence of other specified parts of digestive tract; Z79.899 Other long term (current) drug therapy
CPT/HCPCS: 36415; 36600; 70496; 70498; 71045; 71275; 80048; 80053; 80202; 81001; 82805; 82962; 83605; 84484; 85007; 85025; 85610; 85730; 87040; 93005; 94618; 94640; 94760; 99406; J0692; J1815; J1885; J1956; J2270; J2405; J2930; J3370; J3490; J7030; J7040; J7050; J7613; J7620; J7626; Q9967; 97116; 97530; 97535

== ENCOUNTER → 2018-01-23 | Outpatient (CLI) | payer MEDICARE ==
[2018-01-03 15:00] VITALS: BP 110/71
[~2018-01-23] MED LIST changes: +AMOX1TAB11 PO; +BENZ-8 PO; +FLUT16SP NS; +FLUT1BLS2 INH; +GUAI600T47 PO; +IPRA3AMP29 NEB; +MONT10TA9 PO; +OXYC10TA PO; +PROAIR HFA8.5 GM INH
--- NOTE | 2018-01-23 17:12 | RAD ---
Bilateral lower extremity arterial ultrasound, 01/23/2018: HISTORY: Claudication Duplex evaluation of the major arteries in both lower extremities was performed including grayscale, color-flow and spectral Doppler analysis. There are mild scattered atherosclerotic plaques bilaterally, some of which are calcified. The right common femoral artery demonstrates a biphasic Doppler waveform. The right femoral and popliteal Doppler waveforms are also biphasic. There is only a mild velocity acceleration in the mid right superficial femoral artery up to 198 cm/s. The color images do not suggest high-grade stenosis at this level. Patent posterior tibial, anterior tibial and peroneal arteries are evident in the right lower leg demonstrating biphasic Doppler waveforms. The right dorsalis pedis artery demonstrates a good amplitude monophasic Doppler waveform. On the left, the common femoral Doppler waveform is biphasic. The left femoral and popliteal Doppler waveforms are monophasic. No significant focal velocity acceleration is seen in these regions to suggest high-grade focal stenosis. In the left lower leg, patent anterior tibial, posterior tibial and peroneal arteries are evident demonstrating monophasic Doppler waveforms. The left dorsalis pedis artery is patent with a good amplitude monophasic Doppler waveform. IMPRESSION: 1. Mild scattered atherosclerotic plaquing in both lower extremities. 2. No duplex evidence of high-grade femoral-popliteal stenosis on either side. 3. Three-vessel arterial runoff in both lower legs. 4. Mild degradation of the distal Doppler waveforms. Electronically signed by: Héctor Moise MD (01/23/2018 5:08 PM) [facility]
== END | disposition home or self-care (01) ==
LOC: US 15:40
PROVIDERS: ATTEND Family Medicine
DX: I70.293 Other atherosclerosis of native arteries of extremities, bilateral legs (principal); I25.2 Old myocardial infarction; M16.0 Bilateral primary osteoarthritis of hip; E11.9 Type 2 diabetes mellitus without complications; E78.5 Hyperlipidemia, unspecified; E78.00 Pure hypercholesterolemia, unspecified; J44.9 Chronic obstructive pulmonary disease, unspecified; I11.0 Hypertensive heart disease with heart failure; I50.9 Heart failure, unspecified; K21.9 Gastro-esophageal reflux disease without esophagitis; I25.10 Atherosclerotic heart disease of native coronary artery without angina pectoris; Z86.718 Personal history of other venous thrombosis and embolism; Z85.028 Personal history of other malignant neoplasm of stomach; Z85.05 Personal history of malignant neoplasm of liver; Z86.73 Personal history of transient ischemic attack (TIA), and cerebral infarction without residual deficits; Z90.49 Acquired absence of other specified parts of digestive tract; Z79.4 Long term (current) use of insulin; Z82.49 Family history of ischemic heart disease and other diseases of the circulatory system; Z83.3 Family history of diabetes mellitus
CPT/HCPCS: 93925

== ENCOUNTER → 2018-06-12 | Outpatient (CLI) | payer MEDICARE ==
[~2018-06-12] MED LIST changes: +ACET325T9 PO; +ALBU2.5V8 IH; +ALBU2.5V8 INH; +ASPI81TA50 PO; +CARV3.1210 PO; -CARV3.122 PO; +CRAN425C3 PO; -GABA-586 PO; +GABA300C18 PO; -HYDR-2762 PO; +HYDR-2765 PO; +HYDR-3164 PO; -HYDR-971 PO; +INSU100I30 SQ; +INSU100V37 SQ; -PROAIR HFA8.5 GM IH; -PROAIR HFA8.5 GM INH; +SENN-80 PO
--- NOTE | 2018-06-12 16:15 | KCIC ---
CT study of the lumbar spine without contrast Clinical indications: Low back pain and back surgeries. Bilateral hip pain. Right greater than left. Symptoms for months. Neuropathy. TECHNIQUE: Noncontrast helical CT scanning of the lumbar spine was performed. Multiplanar 2-D reconstructions were generated. PQRS compliance Statement One or more of the following individualized dose reduction techniques were utilized for this study: 1. Automated exposure control 2. Adjustment of the mA and/or kV according to patient size 3. Use of iterative reconstruction technique COMPARISON: Lumbar spine x-ray study dated April 06, 2017. FINDINGS: There is a transitional vertebra present. There is lumbarization of the left side of S1. Therefore, this transitional vertebra will be labeled as S1 for the sake of consistency. There is a grade 1 anterolisthesis of L5-S1. Pedicle is visualized on the left side of L5. There is a defect of the right pedicle of L5. In addition, there is a large defect of the pars interarticularis on the right side. This could be secondary to previous surgery. The right L4 pedicle also appears attenuated with a defect of the pars interarticularis on the right side of L4 and a defect between the transverse process and the pedicle on the right side at L4. There is a defect of the transverse processes at the junction with pedicle on the right side at L5 as well. There is mild retrolisthesis of L4 on L5. There is right lateral subluxation of L4 on L5 as well. There is severe degenerative disc space narrowing and prominent degenerative endplate spurring and subchondral sclerosis at this level. These findings were seen on the radiographic study and are unchanged. Alignment is unchanged. No compression fracture or discitis or lytic process is seen otherwise. No prominent focal disc protrusion or spinal canal stenosis or neural foraminal narrowing is seen from T12-L1 down through L3-L4. At L4-L5, mild diffuse disc protrusion is seen but there is no significant spinal canal stenosis due to the decompression on the right side. Similar finding is seen at L5-S1. At L4-5, there is no significant narrowing of the right neural foramen given the postsurgical change. There is moderate narrowing of left neural foramen at this level. At L5-S1, there is soft tissue thickening involving the right neural foramen but the right neural foramen has been opened up by the surgery. There is moderate narrowing of the left neural foramen at this level.. In addition, there is significant narrowing of the left lateral recess with prominent spurring which may impinge the descending left S1 nerve root at this level. This is the most significant finding. IMPRESSION: Post surgical changes on the right side at L4 and L5. No compression fracture or discitis or lytic process is seen. There is significant narrowing of the left lateral recess of L5-S1 which may impinge the descending left S1 nerve root. Electronically signed by: Hakeem Patel MD (06/12/2018 4:12 PM) [id number]
== END | disposition home or self-care (01) ==
LOC: KCIC CT 08:21
PROVIDERS: ATTEND Family Medicine
DX: M48.07 Spinal stenosis, lumbosacral region (principal); M51.36 Other intervertebral disc degeneration, lumbar region; I10 Essential (primary) hypertension; J44.9 Chronic obstructive pulmonary disease, unspecified; E11.9 Type 2 diabetes mellitus without complications; Z79.01 Long term (current) use of anticoagulants; Z87.891 Personal history of nicotine dependence; Z95.0 Presence of cardiac pacemaker; Z98.1 Arthrodesis status
CPT/HCPCS: 72131

== ENCOUNTER → 2018-07-04 | Outpatient (CLI) | payer MEDICARE ==
--- NOTE | 2018-07-04 11:37 | KCIC ---
EXAM: Bilateral hips, 2 views. HISTORY: Pain. COMPARISON: None. FINDINGS: Frontal and frog-leg views of both hips are obtained. There is no fracture, dislocation or subluxation. There is minimal bilateral femoral head marginal spurring. There is no evidence of avascular necrosis. The joint spaces are intact. IMPRESSION: Minimal bilateral hip osteoarthritis. Electronically signed by: Sary Yuen MD (07/04/2018 11:33 AM) [email or web address]
--- NOTE | 2018-07-04 11:37 | KCIC ---
EXAM: Bilateral hips, 2 views. HISTORY: Pain. COMPARISON: None. FINDINGS: Frontal and frog-leg views of both hips are obtained. There is no fracture, dislocation or subluxation. There is minimal bilateral femoral head marginal spurring. There is no evidence of avascular necrosis. The joint spaces are intact. IMPRESSION: Minimal bilateral hip osteoarthritis. Electronically signed by: Sary Yuen MD (07/04/2018 11:33 AM) [email or web address]
== END | disposition home or self-care (01) ==
LOC: KCIC 09:44
PROVIDERS: ATTEND Family Medicine
DX: M16.0 Bilateral primary osteoarthritis of hip (principal)
CPT/HCPCS: 73502

== ENCOUNTER → 2018-07-17 | Outpatient (CLI) | payer MEDICARE ==
[~2018-07-17] MED LIST changes: +IOHEXOL 180 MG/ML 10 ML VIAL. ONE; +methylPREDNISolone ACETATE 40 MG/ML VIAL. ONE; +methylPREDNISolone ACETATE 80 MG/ML VIAL. ONE
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
== END | disposition home or self-care (01) ==
LOC: PNCL 08:55
PROVIDERS: ATTEND Anesthesiology
DX: M51.16 Intervertebral disc disorders with radiculopathy, lumbar region (principal); M48.061 Spinal stenosis, lumbar region without neurogenic claudication; M96.1 Postlaminectomy syndrome, not elsewhere classified; I25.10 Atherosclerotic heart disease of native coronary artery without angina pectoris; E11.9 Type 2 diabetes mellitus without complications; M19.90 Unspecified osteoarthritis, unspecified site; Z79.4 Long term (current) use of insulin; Z95.0 Presence of cardiac pacemaker; Z95.5 Presence of coronary angioplasty implant and graft; K21.9 Gastro-esophageal reflux disease without esophagitis; I25.2 Old myocardial infarction; H91.90 Unspecified hearing loss, unspecified ear; F17.210 Nicotine dependence, cigarettes, uncomplicated; N40.0 Benign prostatic hyperplasia without lower urinary tract symptoms; Z86.73 Personal history of transient ischemic attack (TIA), and cerebral infarction without residual deficits; Z98.42 Cataract extraction status, left eye; Z98.41 Cataract extraction status, right eye; Z96.1 Presence of intraocular lens; Z90.49 Acquired absence of other specified parts of digestive tract; Z98.890 Other specified postprocedural states; Z79.82 Long term (current) use of aspirin; Z79.899 Other long term (current) drug therapy; Z83.3 Family history of diabetes mellitus; Z72.89 Other problems related to lifestyle
CPT/HCPCS: 62323; J1030; J1040; Q9965

== ENCOUNTER → 2018-07-31 | Outpatient (CLI) | payer MEDICARE ==
--- NOTE | 2018-08-01 00:23 | PAIN ---
DATE OF SERVICE: 07/31/2018 PROGRESS NOTE FOR PAIN CLINIC DIAGNOSES: Lumbar radiculopathy with lumbar spinal stenosis, lumbar degenerative disk disease and post-lumbar laminectomy syndrome. HISTORY OF PRESENT ILLNESS: The patient is a 62-year-old male who returns for followup status post lumbar epidural steroid injection x 1. The patient reports about 50% improvement overall. Basically, his hips have been almost completely pain free especially on the left side. The patient reports the first 4-5 days, he had almost complete relief and the pain is beginning return now in the low back and into the bilateral lower extremities, mainly in the low back. The patient reports it is a 6 on a scale 10 at its worst, 6 on average, 5 at its least and is a 6 today. The patient reports it is aching, sharp, dull, tight, cramping, tingling, burning, becoming more constant, more severe with time, worse with standing, walking, changing positions, better with sitting or lying down, but is awakening him from sleep still but the first 4-5 days, it does not awaken him from sleep. He is walking with much greater ease and comfort greater distances, doing household activities with greater ease and comfort as well as traveling and now the pain is returning. The patient reports no new motor or sensory deficits and no new bowel or bladder incontinence or other complaints. PHYSICAL EXAMINATION: VITAL SIGNS: The patient's blood pressure 139/95, pulse 99, respirations are 18 and temperature 97.9 degrees Fahrenheit. Height is 6 feet and weight is 231 pounds. GENERAL: The patient is awake, alert, oriented, appropriate and very pleasant demeanor. HEENT: Head shows normocephalic and atraumatic. Extraocular movements are intact and symmetrical. Oral cavity: Mucous membranes moist and pink. Dentition intact. NECK: Shows anterior throat supple without palpable lymphadenopathy noted. Swallow reflex symmetrical. CHEST: Shows normal with inspection. Breath sounds clear to auscultation bilaterally. HEART: Shows S1 and S2 clear. No murmurs auscultated. ABDOMEN: Soft, nontender and nondistended. No palpable organomegaly is noted. No rebound or guarding demonstrated. BACK: Shows spine grossly in the midline. Slight exaggeration of the thoracic kyphosis and some flattening of lumbar lordotic curvature with well-healed surgical scar noted. Lumbar paraspinous muscle shows symmetrical on inspection and on palpation shows some moderate tenderness but only diffusely without significant radiation. EXTREMITIES: The patient's lower extremities show deep tendon reflexes 1+ in the patellar and tendo-calcaneus tendons. Motor exam is strong with 4 on a scale 5 but equal and symmetrical dorsiflexion, extension, quadriceps and hamstring flexion. Peripheral pulses are 1+ posterior tibia. No peripheral edema is noted bilaterally. Options were discussed with the patient. The patient's old chart was reviewed as well as his current medication regimen updated. Current review of systems updated today as well. We will proceed with a second in the series of lumbar epidural steroid injection today with fluoroscopic guidance. Risks were again discussed including, but not limited to bleeding, infection, possibility of epidural hematoma, subsequent neurologic compromise, dural puncture, headaches, spinal cord and/or nerve damage, side effects of steroid medication and poor results regarding pain control. The patient understands and wished to proceed. The patient will return to the clinic in approximately 2 weeks for followup, was counseled as to return appointment, activity level and side effects to be aware of. DIAGNOSES: Lumbar radiculopathy with lumbar spinal stenosis, lumbar degenerative disk disease and post-laminectomy syndrome. PROCEDURE: Lumbar epidural steroid injection, translaminar approach at L5-S1 level using C-arm fluoroscopic guidance under sterile prep and drape using local anesthetic. MEDICATION INJECTED: A total of 120 mg Depo-Medrol plus 10 mL of preservative-free normal saline and 2 mL of Isovue for contrast. CONDITION AT DISCHARGE: Stable. The patient tolerated the procedure well and had no complications. NATE MARCIAL MD DR: MICHAEL/allison JOB#: [id number] / [id number]
== END | disposition home or self-care (01) ==
LOC: PNCL 08:40
PROVIDERS: ATTEND Anesthesiology
DX: M51.16 Intervertebral disc disorders with radiculopathy, lumbar region (principal); M48.061 Spinal stenosis, lumbar region without neurogenic claudication; M96.1 Postlaminectomy syndrome, not elsewhere classified
CPT/HCPCS: 62323; J1030; J1040; Q9965

== ENCOUNTER → 2018-08-14 | Outpatient (CLI) | payer MEDICARE ==
--- NOTE | 2018-08-14 22:36 | PAIN ---
DATE OF SERVICE: 08/14/2018 DIAGNOSES: Lumbar radiculopathy with lumbar spinal stenosis, lumbar degenerative disk disease and post-lumbar laminectomy syndrome. HISTORY OF PRESENT ILLNESS: The patient is a 62-year-old male who returns for followup status post lumbar epidural steroid injections x 2. The patient reports the first injection did quite well with the second one was not significantly improving the pain at all. The patient reports he has had pain in the low back, bilateral lower extremities, now with numbness in the leg, which is becoming more difficult to walk and ambulate and losing control of his legs. The patient reports it is an 8 on a scale of 10 at its worst, 6 on average, 5 at its least over the past week and is a 5 today. The patient reports it is aching, sharp, dull, tight, shooting, cramping, stabbing, burning, tingling, radiating, becoming more constant, more severe with weightbearing, wakes him up from sleep at night, increasing with activity, walking and standing. The patient reports no new motor or sensory deficits, no complete loss of motor function, but significant fatigability to bilateral lower extremities. No bowel or bladder incontinence, better with sitting, increased with standing and changing from sitting to standing position and with ambulating, especially even more than about 5 minutes. PHYSICAL EXAMINATION: VITAL SIGNS: The patient's blood pressure is 137/100, pulse 99, respirations 18, temperature 97.5 degrees Fahrenheit, weight is 231 pounds. GENERAL: The patient is awake, alert, oriented, appropriate, very pleasant demeanor. The patient is accompanied by his spouse. HEENT: Shows normocephalic, atraumatic. Extraocular movements are intact and symmetrical. Oral cavity: Mucous membranes moist and pink. Dentition is intact. NECK: Shows anterior throat supple without palpable lymphadenopathy noted. Swallow reflex symmetrical. CHEST: Shows normal on inspection. Breath sounds are clear to auscultation bilaterally. HEART: Shows S1, S2 clear. No murmurs auscultated. ABDOMEN: Soft, nontender, nondistended. No palpable organomegaly is noted. No rebound or guarding demonstrated. BACK: Shows spine grossly in the midline. Normal appearing thoracic kyphosis and minor flattening of lumbar lordotic curvature with well-healed surgical scar in the midline. Paraspinous musculature shows symmetrical on inspection. On palpation shows some moderate tenderness diffusely bilaterally, but only diffusely without significant radiation. The patient's back shows good rotational motion both laterally greater than 10 degrees as well as extension greater than 10 degrees, forward flexion at 45 degrees without significant pain reported. EXTREMITIES: The patient's lower extremities show deep tendon reflexes 1+ in the patellar and tendo calcaneus tendons are equal. Motor exam is strong with approximately 4 on a scale of 5, but symmetrical and equal with dorsiflexion and extension bilaterally. Peripheral pulses are 1+ posterior tibia. No peripheral edema is noted bilaterally. Options were discussed with the patient. The patient's old chart was reviewed as was his current medication regimen updated. Current review of systems is updated today as well. We will proceed with a third in the series of lumbar epidural steroid injection today with fluoroscopic guidance. Risks were again discussed including, but not limited to bleeding, infection, possibility of epidural hematoma, subsequent neurologic compromise, dural puncture, headaches, spinal cord and/or nerve damage, side effects of steroid medication and poor results regarding pain control. The patient understands and wished to proceed. The patient will return to the clinic in approximately 2 weeks for followup, was counseled on return appointment, activity level and side effects to be aware of. Also discussed meeting with his neurosurgeon to make sure there is no other surgical alternatives after the third injection today. We did discuss potential for spinal cord stimulator in the future. The patient would like to look into this if the pain returns as it did after the second injection and will make those arrangements. DIAGNOSES: Lumbar radiculopathy with lumbar spinal stenosis, lumbar degenerative disk disease and post-lumbar laminectomy syndrome. PROCEDURE: Lumbar epidural steroid injection, translaminar approach at the L5-S1 level using C-arm fluoroscopic guidance under sterile prep and drape using local anesthetic. MEDICATION INJECTED: A total of 120 mg Depo-Medrol plus 10 mL of preservative-free normal with 2 mL of Isovue for contrast. CONDITION AT DISCHARGE: Stable. The patient tolerated the procedure well, had no complications. NATE MARCIAL MD DR: MICHAEL/allison JOB#: [id number] / [id number]
== END | disposition home or self-care (01) ==
LOC: PNCL 09:01
PROVIDERS: ATTEND Anesthesiology
DX: M51.16 Intervertebral disc disorders with radiculopathy, lumbar region (principal); M48.061 Spinal stenosis, lumbar region without neurogenic claudication; M96.1 Postlaminectomy syndrome, not elsewhere classified
CPT/HCPCS: 62323; J1030; J1040; Q9965

== ENCOUNTER 2019-02-23 07:47 | Inpatient (IN) | payer MEDICARE ==
[~2019-02-23] VITALS: Ht 182.9 cm; Wt 101.4 kg
[~2019-02-23 07:47] MED LIST changes: -IOHEXOL 180 MG/ML 10 ML VIAL. ONE; +MONT10TA49 PO; -MONT10TA9 PO; +OMEP40CA45 PO; -OMEP40CA5 PO; -methylPREDNISolone ACETATE 40 MG/ML VIAL. ONE; -methylPREDNISolone ACETATE 80 MG/ML VIAL. ONE
--- NOTE | 2019-02-23 08:27 | RAD ---
AP chest x-ray COMPARISON: CT chest 11/10/2017. HISTORY: Shortness of breath. FINDINGS: Dual-chamber implanted cardiac device. Cardiomegaly stable. Mediastinal silhouette is normal. No pneumothorax. No pleural effusions. There is a reticulonodular infiltrate at the right medial lung base new from prior studies. Left lung is clear. Bones unremarkable. IMPRESSION: Reticulonodular pulmonary infiltrate at the right medial lung base either at the middle or lower lobe suspicious for pneumonia. Asymmetric pulmonary edema would be a secondary consideration. Cardiomegaly stable. No pleural effusions. Electronically signed by: Demetrius Live MD (02/23/2019 8:25 AM) [facility]
[2019-02-23] MEDS ORDERED: methylPREDNISolone SOD SUCC PF 125 MG/2 ML VIAL. IV ONE (08:30)
[2019-02-23] MEDS ORDERED: IPRATRPIUM/ALBUTEROL 0.5/2.5MG 3 ML NEBU. NEB ONE (08:30)
[2019-02-23 08:38] LABS: BASO # 0.1 x10^3/uL (0.0-0.2); BASO % 1 % (0-3); EOS # 0.2 x10^3/uL (0.0-0.7); EOS % 2 % (0-3); HEMATOCRIT 44.3 % (39.0-53.0); HEMOGLOBIN 14.6 g/dL (13.0-17.5); LYMPH # 1.5 x10^3/uL (1.0-4.8); LYMPH % 17 % (24-48); MEAN CORPUSCULAR HEMOGLOBIN 30 pg (25-35); MEAN CORPUSCULAR HGB CONC 33 g/dL (31-37); MEAN CORPUSCULAR VOLUME 90 fL (79-100); MONO # 0.7 x10^3/uL (0.0-1.1); MONO % 8 % (0-9); NEUT # 6.4 x10^3/uL (1.8-7.7); NEUT % 73 % (31-73); PLATELET COUNT 231 x10^3/uL (140-400); RED BLOOD COUNT 4.94 x10^6/uL (4.30-5.70); RED CELL DISTRIBUTION WIDTH 14.8 % (11.5-14.5); WHITE BLOOD COUNT 8.9 x10^3/uL (4.0-11.0)
[2019-02-23 08:39] LABS: BASE EXCESS ABG 0 mmol/L (-3-3); HCO3 ABG 23 mmol/L (21-28); PCO2 ABG 35 mmHg (35-46); PO2 ABG 52 mmHg (65-108); SAT O2 ABG 87 % (92-99)
--- NOTE | 2019-02-23 08:42 | PHYS DOC ---
Past Medical History Past Medical History: Asthma, COPD, Depression, Diabetes-Type II, GERD, High Cholesterol, OR, P.U.D., Stroke, Other Additional Past Medical Histor: chronic pain, ulcers, enlarged prostate Past Surgical History: Appendectomy, Cholecystectomy, Pacemaker, Other Additional Past Surgical Histo: back, hernia Alcohol Use: Occasionally Drug Use: None Adult General Chief Complaint Chief Complaint: SHORTNESS OF BREATH HPI HPI Patient is a 63 year old male with history of COPD without home oxygen who presents with complaining of shortness of breath. Patient states he quit smoking about 6 months ago and since then not able to cough as good as before. Patient complaining of increasing shortness of breath with activity and supine position for the last one week associated with dry cough and generalized weakness. Patient complaining of pain in the upper abdomen with episodes of cough that getting worse and constant for the last few days. Patient denies fever and chills, sore throat, headache, chest pain, nausea and vomiting and diarrhea, sick contact. Patient had O2 sat of 91% at room air in ER. Review of Systems Review of Systems Constitutional: Denies fever or chills [] Eyes: Denies change in visual acuity, redness, or eye pain [] HENT: Denies nasal congestion or sore throat [] Respiratory: Reports cough and shortness of breath Cardiovascular: No additional information not addressed in HPI [] GI: Denies abdominal pain, nausea, vomiting, bloody stools or diarrhea [] : Denies dysuria or hematuria [] Musculoskeletal: Denies back pain or joint pain [] Integument: Denies rash or skin lesions [] Neurologic: Denies headache, focal weakness or sensory changes [] Endocrine: Denies polyuria or polydipsia [] All other systems were reviewed and found to be within normal limits, except as documented in this note. Current Medications Current Medications Current Medications Medications (Trade) Dose Ordered Sig/Aretha Start Time Stop Time Status Last Admin Dose Admin Albuterol/ Ipratropium (Duoneb) 3 ml 1X ONCE 02/23/19 08:30 02/23/19 08:31 DC 02/23/19 08:20 3 ML Methylprednisolone Sodium Succinate (SOLU-Medrol 125MG VIAL) 125 mg 1X ONCE 02/23/19 08:30 02/23/19 08:31 DC 02/23/19 08:35 125 MG Allergies Allergies Allergies Coded Allergies Type Severity Reaction Last Updated Verified No Known Drug Allergies 12/27/17 No Physical Exam Physical Exam Constitutional: Well developed, well nourished, moderate distress, non-toxic appearance. [] HENT: Normocephalic, atraumatic, bilateral external ears normal, oropharynx moist, no oral exudates, nose normal. [] Eyes: PERRLA, EOMI, conjunctiva normal, no discharge. [] Neck: Normal range of motion, no tenderness, supple, no stridor. [] Cardiovascular: Tachycardia, no murmur [] Lungs & Thorax: Bilateral breath sounds clear to auscultation [] Abdomen: Mild respiratory distress with intercostal retraction and tachypnea, by basilar rales and rhonchi Skin: Warm, dry, no erythema, no rash. [] Back: No tenderness, no CVA tenderness. [] Extremities: No tenderness, no cyanosis, no clubbing, ROM intact, no edema. [] Neurologic: Alert and oriented X 3, normal motor function, normal sensory function, no focal deficits noted. [] Psychologic: Affect normal, judgement normal, mood normal. [] Current Patient Data Vital Signs Vital Signs Date Time Temp Pulse Resp B/P (MAP) Pulse Ox O2 Delivery O2 Flow Rate FiO2 02/23/19 08:30 110 29 129/80 (96) 91 Nasal Cannula 4.0 02/23/19 08:15 97.8 97.8 Lab Values Laboratory Tests Test 02/23/19 08:04 02/23/19 08:10 O2 Saturation 87 % (92-99) L Arterial Blood pH 7.44 (7.35-7.45) Arterial Blood pCO2 at Patient Temp 35 mmHg (35-46) Arterial Blood pO2 at Patient Temp 52 mmHg (65-108) L Arterial Blood HCO3 23 mmol/L (21-28) Arterial Blood Base Excess 0 mmol/L (-3-3) FiO2 21% ra White Blood Count 8.9 x10^3/uL (4.0-11.0) Red Blood Count 4.94 x10^6/uL (4.30-5.70) Hemoglobin 14.6 g/dL (13.0-17.5) Hematocrit 44.3 % (39.0-53.0) Mean Corpuscular Volume 90 fL (79-100) Mean Corpuscular Hemoglobin 30 pg (25-35) Mean Corpuscular Hemoglobin Concent 33 g/dL (31-37) Red Cell Distribution Width 14.8 % (11.5-14.5) H Platelet Count 231 x10^3/uL (140-400) Neutrophils (%) (Auto) 73 % (31-73) Lymphocytes (%) (Auto) 17 % (24-48) L Monocytes (%) (Auto) 8 % (0-9) Eosinophils (%) (Auto) 2 % (0-3) Basophils (%) (Auto) 1 % (0-3) Neutrophils # (Auto) 6.4 x10^3/uL (1.8-7.7) Lymphocytes # (Auto) 1.5 x10^3/uL (1.0-4.8) Monocytes # (Auto) 0.7 x10^3/uL (0.0-1.1) Eosinophils # (Auto) 0.2 x10^3/uL (0.0-0.7) Basophils # (Auto) 0.1 x10^3/uL (0.0-0.2) Prothrombin Time 14.2 SEC (11.7-14.0) H Prothrombin Time INR 1.1 (0.8-1.1) D-Dimer (Marga) 1.12 ug/mlFEU (0.00-0.50) H Sodium Level 141 mmol/L (136-145) Potassium Level 3.9 mmol/L (3.5-5.1) Chloride Level 105 mmol/L (98-107) Carbon Dioxide Level 25 mmol/L (21-32) Anion Gap 11 (6-14) Blood Urea Nitrogen 18 mg/dL (8-26) Creatinine 0.8 mg/dL (0.7-1.3) Estimated GFR (Cockcroft-Gault) 97.0 BUN/Creatinine Ratio 23 (6-20) H Glucose Level 160 mg/dL (70-99) H Lactic Acid Level 1.7 mmol/L (0.4-2.0) Calcium Level 8.9 mg/dL (8.5-10.1) Total Bilirubin 1.1 mg/dL (0.2-1.0) H Aspartate Amino Transferase (AST) 13 U/L (15-37) L Alanine Aminotransferase (ALT) 17 U/L (16-63) Alkaline Phosphatase 106 U/L (46-116) Creatine Kinase 66 U/L (39-308) Troponin I Quantitative < 0.017 ng/mL (0.000-0.055) OJ-Uag-F-Type Natriuretic Peptide 1371 pg/mL (0-124) H Total Protein 7.3 g/dL (6.4-8.2) Albumin 3.6 g/dL (3.4-5.0) Albumin/Globulin Ratio 1.0 (1.0-1.7) Laboratory Tests 02/23/19 08:10 Laboratory Tests 02/23/19 08:10 EKG EKG EKG interpreted by me. EKG at 0810 showed sinus tachycardia at rate of 102, abnormal left axis deviation, left anterior fascicular block, LVH with repolarization abnormalities, poor R-wave progress in anteroseptal leads, no acute ST and T-wave elevation. Radiology/Procedures Radiology/Procedures [][facility] [address] [place] [address] IMAGING REPORT Signed PATIENT: JASPREET JAY EACCOUNT: [id number] : 1955 LOCATION: ER AGE: 63 SEX: M EXAM STATUS: REG ER ORD. PHYSICIAN: VADIM HOOVER MD REASON: shortness of breath PROCEDURE: PORTABLE CHEST 1V AP chest x-ray COMPARISON: CT chest 11/10/2017. HISTORY: Shortness of breath. FINDINGS: Dual-chamber implanted cardiac device. Cardiomegaly stable. Mediastinal silhouette is normal. No pneumothorax. No pleural effusions. There is a reticulonodular infiltrate at the right medial lung base new from prior studies. Left lung is clear. Bones unremarkable. IMPRESSION: Reticulonodular pulmonary infiltrate at the right medial lung base either at the middle or lower lobe suspicious for pneumonia. Asymmetric pulmonary edema would be a secondary consideration. Cardiomegaly stable. No pleural effusions. Electronically signed by: Tian Live MD (02/23/2019 8:25 AM) [facility] DICTATED and SIGNED BY: TIAN LIVE MD DATE: 02/23/19 0825 Course & Med Decision Making Course & Med Decision Making Pertinent Labs and Imaging studies reviewed. (See chart for details) Evaluation of patient in ER showed 63-year-old male patient with history of COPD without home oxygen and complaining of cough and shortness of breath for one week. Patient had O2 sat of 91 or 98 with respiratory distress. Chest x-ray showed right lower lobe infiltration. Patient did not have elevation of lactic acid or leukocytosis. Patient had history of CHF with elevation of BNP and bolus of IV fluid was not given but continues IV fluid was started.Patient requiring admission for further evaluation and treatment. Discussed with Dr. Elizondo who is in agreement with admission. Discussed findings and plan with patient and family, who acknowledge understanding and agreement. Dragon Disclaimer Dragon Disclaimer This electronic medical record was generated, in whole or in part, using a voice recognition dictation system. Departure Departure Impression: Primary Impression: CAP (community acquired pneumonia) Additional Impressions: Acute respiratory distress Hypoxia Disposition: ADMITTED INPATIENT Admitting Physician: JAYLIN Condition: GUARDED Referrals: STAN MOONEY MD (PCP) Critical Care Time Critical care time was 60 minutes exclusive of procedures. Problem Qualifiers Primary Impression: CAP (community acquired pneumonia) Laterality: right Lung location: lower lobe of lung Qualified Codes: J18.1 - Lobar pneumonia, unspecified organism VADIM HOOVER MD Feb 23, 2019 08:42
[2019-02-23] MEDS ORDERED: IV NORMAL SALINE 1000ML BAG 1,000 ML IV ONE (08:45)
[2019-02-23 08:46] LABS: PROTHROMBIN TIME PATIENT 14.2 SEC (11.7-14.0)
[2019-02-23 08:52] LABS: D-DIMER 1.12 ug/mlFEU (0.00-0.50)
[2019-02-23 08:53] LABS: CALCIUM 8.9 mg/dL (8.5-10.1); CREATININE 0.8 mg/dL (0.7-1.3); POTASSIUM 3.9 mmol/L (3.5-5.1)
[2019-02-23 08:58] LABS: ALBUMIN 3.6 g/dL (3.4-5.0); TOTAL BILIRUBIN 1.1 mg/dL (0.2-1.0); TOTAL PROTEIN 7.3 g/dL (6.4-8.2)
[2019-02-23 09:05] LABS: FIO2 ABG 21% RA
[2019-02-23] MEDS ORDERED: VANCOMYCIN 1GM IVPB FOR OMNI 250 ML IV ONE (09:15)
[2019-02-23] MEDS ORDERED: VANCOMYCIN 2 GM in IV NORMAL SALINE 500ML BAG 500 ML IV ONE (09:30)
[2019-02-23] MEDS ORDERED: cefTRIAXone IV Push 1 GM VIAL. IVP ONE (09:30)
[2019-02-23] MEDS ORDERED: fentaNYL PF VIAL 100 MCG/2 ML VIAL IVP ONE (10:00)
--- NOTE | 2019-02-23 10:00 | NUR ---
Patient arrived to room 202 via bed from ER at 1000. Family at bedside. Patient A&OX4. 4L O2 NC on patient. Patient is still short of breath. The patient, JASPREET JAY, 63 y/o, M admitted by MEENA GARCES MD, was given written information regarding hospital policies, unit procedures and contact persons. Valuables were checked and noted. Will continue to monitor.
[2019-02-23 10:16] VITALS: BP 137/91
[2019-02-23] MEDS ORDERED: ATOR20TA58 PO (10:51)
[2019-02-23] MEDS ORDERED: BUDE10.2 IH (10:51)
[2019-02-23] MEDS ORDERED: DULO60CA45 PO (10:51)
[2019-02-23] MEDS ORDERED: MULT-475 PO (10:51)
[2019-02-23] MEDS ORDERED: ACETAMINOPHEN 325 MG TABLET. PO PRN (11:45)
[2019-02-23] MEDS ORDERED: ALBUTEROL SULFATE 2.5 MG/3 ML NEBU. NEB PRN (12:00)
[2019-02-23] MEDS: DULoxetine HCL 30 MG CAPSULE.DR PO SCH (12:54)
[2019-02-23] MEDS: DOXYCYCLINE HYCLATE 100 MG TABLET PO SCH ×2 (12:54→20:25)
[2019-02-23] MEDS ORDERED: GABAPENTIN 300 MG CAPSULE. PO SCH (13:00)
[2019-02-23 14:10] VITALS: BP 130/82
[2019-02-23] MEDS: ALBUTEROL SULFATE 2.5 MG/3 ML NEBU. NEB SCH ×2 (15:10→19:40)
--- NOTE | 2019-02-23 16:41 | NUR ---
Consults to GI & cardiology called & message left with answering service.
--- NOTE | 2019-02-23 16:49 | PDOC1 ---
History and Physical Date of Admission Date of Admission DATE: 02/23/19 TIME: 16:45 History of Present Illness History of Present Illness Meño Frederick, is a 63 year old male admit with cough, dyspena, acute shortness of breath, lasting almost a week, but markedly worse in the past 23 hours. He has hx COPD for almost 20 years. Patient states he quit smoking about 6 months ago and since then not able to cough as good as before. P he has trouble swallowing, he feels that food gets stuck below his neck, and he has increasing shortness of breath with activity and supine position for the last one week associated with dry cough and generalized weakness some abd pain, . Patient denies fever and chills, sore throat, headache, chest pain, nausea and vomiting and diarrhea, sick contact Past Medical History Cardiovascular: CAD, CHF, AL, Syncope, Hyperlipidemia Pulmonary: COPD CENTRAL NERVOUS SYSTEM: CVA, Periperal neuropathy GI: GERD Heme/Onc: Other Hepatobiliary: Cirrhosis Psych: Depression Musculoskeletal: Osteoarthritis Rheumatologic: Rheumatoid arthritis Infectious disease: No pertinent hx Renal/: Benign prostatic enlarg. Endocrine: Diabetes Past Surgical History Past Surgical History: Pacemaker, Hernia Repair, Other Family History Family History: Hypertension Social History Smoke: Quit ALCOHOL: occassional Drugs: None Current Problem List Problem List Problems Medical Problems: (1) Acute respiratory distress Status: Acute (2) CAP (community acquired pneumonia) Status: Acute (3) Hypoxia Status: Acute Current Medications Current Medications Current Medications Albuterol/ Ipratropium (Duoneb) 3 ml 1X ONCE NEB Last administered on 02/23/19at 08:20; Start 02/23/19 at 08:30; Stop 02/23/19 at 08:31; Status DC Methylprednisolone Sodium Succinate (SOLU-Medrol 125MG VIAL) 125 mg 1X ONCE IV Last administered on 02/23/19at 08:35; Start 02/23/19 at 08:30; Stop 02/23/19 at 08:31; Status DC Sodium Chloride 1,000 ml @ 1,000 mls/hr 1X ONCE IV Last administered on 02/23/19at 09:28; Start 02/23/19 at 08:45; Stop 02/23/19 at 09:44; Status DC Ceftriaxone Sodium (Rocephin) 1 gm 1X ONCE IVP Last administered on 02/23/19at 09:28; Start 02/23/19 at 09:30; Stop 02/23/19 at 09:31; Status DC Vancomycin HCl 250 ml @ 250 mls/hr 1X ONCE IV ; Start 02/23/19 at 09:15; Stop 02/23/19 at 10:14; Status UNV Vancomycin HCl 2 gm/Sodium Chloride 500 ml @ 250 mls/hr 1X ONCE IV Last administered on 02/23/19at 09:28; Start 02/23/19 at 09:30; Stop 02/23/19 at 11:29; Status DC Fentanyl Citrate (Fentanyl 2ml Vial) 50 mcg 1X ONCE IVP Last administered on 02/23/19at 09:41; Start 02/23/19 at 10:00; Stop 02/23/19 at 10:01; Status DC Acetaminophen (Tylenol) 650 mg PRN Q4HRS PRN PO MILD PAIN / TEMP; Start 02/23/19 at 11:45 Aspirin (Jorge Luis Aspirin) 325 mg DAILYWBKFT PO ; Start 02/24/19 at 08:00 Atorvastatin Calcium (Lipitor) 20 mg HS PO ; Start 02/23/19 at 21:00 Gabapentin (Neurontin) 600 mg QID PO Last administered on 02/23/19at 12:54; Start 02/23/19 at 13:00 Sennosides (Senna) 8.6 mg HS PO ; Start 02/23/19 at 21:00 Tamsulosin HCl (Flomax) 0.4 mg BID PO ; Start 02/23/19 at 21:00 Non-Formulary Medication (Budesonide/ Formoterol Fumarate (Symbicort 160-4.5 Mcg Inhaler)) 2 puff BID IH ; Start 02/23/19 at 21:00; Status UNV Duloxetine HCl (Cymbalta) 60 mg DAILY PO ; Start 02/23/19 at 13:00 Insulin Glargine (Lantus Syringe) 70 unit QHS SQ ; Start 02/23/19 at 21:00 Insulin Glargine (Lantus Syringe) 75 unit DAILY07 SQ ; Start 02/24/19 at 07:00 Pantoprazole Sodium (Protonix) 40 mg DAILYAC PO ; Start 02/24/19 at 07:30 Albuterol Sulfate (Ventolin Neb Soln) 2.5 mg PRN Q4HRS PRN NEB SHORTNESS OF BREATH; Start 02/23/19 at 12:00 Methylprednisolone Sodium Succinate (SOLU-Medrol 40MG VIAL) 40 mg Q12HR IV ; Start 02/23/19 at 21:00 Ceftriaxone Sodium (Rocephin) 1 gm Q24H IVP ; Start 02/24/19 at 09:00 Doxycycline Hyclate (Vibra-Tab) 100 mg BID PO Last administered on 02/23/19at 12:54; Start 02/23/19 at 13:00 Budesonide (Pulmicort) 0.5 mg RTBID NEB ; Start 02/23/19 at 13:00 Albuterol Sulfate (Ventolin Neb Soln) 2.5 mg RTQID NEB Last administered on 02/23/19at 15:10; Start 02/23/19 at 13:00 Active Scripts Active Duoneb 0.5-3(2.5) Mg/3 Ml (Albuterol/Ipratropium) 3 Ml Ampul.neb 3 Ml NEB Q6HRS 30 Days Oxycodone Hcl Immed.release (Oxycodone Hcl) 10 Mg Tablet 1 Tab PO QID PRN Tamsulosin Hcl 0.4 Mg Cap.er.24h 1 Cap PO BID Reported Symbicort 160-4.5 Mcg Inhaler (Budesonide/Formoterol Fumarate) 10.2 Gm Hfa.aer.ad 2 Puff IH BID Duloxetine Hcl 60 Mg Capsule. 60 Mg PO DAILY Atorvastatin Calcium 20 Mg Tablet 20 Mg PO HS One Daily Multivitamin (Multivitamin) 1 Each Tablet 1 Tab PO DAILY 30 Days Cranberry (Cranberry Extract) 425 Mg Capsule 4,200 Mg PO BID Senna (Sennosides) 8.6 Mg Tablet 8.6 Mg PO HS Tylenol (Acetaminophen) 325 Mg Tablet 2 Tab PO PRN Q4HRS Tresiba Flextouch U-100 (Insulin Degludec) 100 Unit/1 Ml Insuln.pen 70 Unit SQ HS Tresiba (Insulin Degludec) 100 Unit/1 Ml Vial 75 Unit SQ DAILY07 Gabapentin (Gabapentin) 300 Mg Capsule 600 Mg PO QID Aspirin 325 Mg Tablet 1 Tab PO DAILY Prilosec (Omeprazole) 40 Mg Capsule.dr 40 Mg PO DAILY MAY TAKE ANY TIME Allergies Allergies: Coded Allergies: No Known Drug Allergies (Unverified , 12/27/17) ROS General: YES: Chills, Fatigue PSYCHOLOGICAL ROS: YES: Sleep disturbances Eyes: No Blurry vision, No Decreased vision, No Double vision, No Dry eyes, No Excessive tearing, No Eye Pain, No Itchy Eyes, No Loss of vision, No Photophobia, No Scotomata, No Uses contacts, No Uses glasses, No Other HEENT: No: Heacaches, Visual Changes, Hearing change, Nasal congestion, Nasal discharge, Oral lesions, Sinus pain, Sore Throat, Epistaxis, Sneezing, Snoring, Tinnitus, Vertigo, Vocal changes, Other Respiratory: YES: Cough, Shortness of breath, SOB with excertion, Sputum Changes, Wheezing Cardiovascular: No Chest Pain, No Palpitations, No Orthopnea, No Paroxysmal Noc. Dyspnea, No Edema, No Lt Headedness, No Other Gastrointestinal: Yes Nausea, Yes Other (trouble swallowing); No Vomiting, No Abdominal Pain, No Diarrhea, No Constipation, No Melena, No Hematochezia Genitourinary: No Dysuria, No Frequency, No Incontinence, No Hematuria, No Retention, No Discharge, No Urgency, No Pain, No Flank Pain, No Other, No , No , No , No , No , No , No Musculoskeletal: No Gait Disturbance, No Joint Pain, No Joint Stiffness, No Joint Swelling, No Muscle Pain, No Muscular Weakness, No Pain In:, No Swelling In:, No Other Neurological: No Behavorial Changes, No Bowel/Bladder ControlChng, No Confusion, No Dizziness, No Gait Disturbance, No Headaches, No Impaired Coord/balance, No Memory Loss, No Numbness/Tingling, No Seizures, No Speech Problems, No Tremors, No Visual Changes, No Weakness, No Other Skin: No Dry Skin, No Eczema, No Hair Changes, No Lumps, No Mole Changes, No Mottling, No Nail Changes, No Pruritus, No Rash, No Skin Lesion Changes, No Other, No Acne Physical Exam General: Alert, Cooperative, mild distress HEENT: Atraumatic, PERRLA Lungs: Other (rales, rhonchi RL) Heart: S1S2, no murmurs Abdomen: Normal bowel sounds, Soft Rectal Exam: not examined Extremities: No clubbing, No edema, Normal pulses Skin: No rashes, No breakdown Neuro: Sensation intact Psych/Mental Status: Mood NL Vitals Vitals Vital Signs Date Time Temp Pulse Resp B/P (MAP) Pulse Ox O2 Delivery O2 Flow Rate FiO2 02/23/19 15:11 92 Nasal Cannula 4.0 02/23/19 14:10 97.7 116 130/82 (98) 97.7 02/23/19 09:41 30 Labs Labs Laboratory Tests Test 02/23/19 08:04 02/23/19 08:10 02/23/19 11:27 O2 Saturation 87 % (92-99) Arterial Blood pH 7.44 (7.35-7.45) Arterial Blood pCO2 at Patient Temp 35 mmHg (35-46) Arterial Blood pO2 at Patient Temp 52 mmHg (65-108) Arterial Blood HCO3 23 mmol/L (21-28) Arterial Blood Base Excess 0 mmol/L (-3-3) FiO2 21% ra White Blood Count 8.9 x10^3/uL (4.0-11.0) Red Blood Count 4.94 x10^6/uL (4.30-5.70) Hemoglobin 14.6 g/dL (13.0-17.5) Hematocrit 44.3 % (39.0-53.0) Mean Corpuscular Volume 90 fL (79-100) Mean Corpuscular Hemoglobin 30 pg (25-35) Mean Corpuscular Hemoglobin Concent 33 g/dL (31-37) Red Cell Distribution Width 14.8 % (11.5-14.5) Platelet Count 231 x10^3/uL (140-400) Neutrophils (%) (Auto) 73 % (31-73) Lymphocytes (%) (Auto) 17 % (24-48) Monocytes (%) (Auto) 8 % (0-9) Eosinophils (%) (Auto) 2 % (0-3) Basophils (%) (Auto) 1 % (0-3) Neutrophils # (Auto) 6.4 x10^3/uL (1.8-7.7) Lymphocytes # (Auto) 1.5 x10^3/uL (1.0-4.8) Monocytes # (Auto) 0.7 x10^3/uL (0.0-1.1) Eosinophils # (Auto) 0.2 x10^3/uL (0.0-0.7) Basophils # (Auto) 0.1 x10^3/uL (0.0-0.2) Prothrombin Time 14.2 SEC (11.7-14.0) Prothromb Time International Ratio 1.1 (0.8-1.1) D-Dimer (Marga) 1.12 ug/mlFEU (0.00-0.50) Sodium Level 141 mmol/L (136-145) Potassium Level 3.9 mmol/L (3.5-5.1) Chloride Level 105 mmol/L (98-107) Carbon Dioxide Level 25 mmol/L (21-32) Anion Gap 11 (6-14) Blood Urea Nitrogen 18 mg/dL (8-26) Creatinine 0.8 mg/dL (0.7-1.3) Estimated GFR (Cockcroft-Gault) 97.0 BUN/Creatinine Ratio 23 (6-20) Glucose Level 160 mg/dL (70-99) Lactic Acid Level 1.7 mmol/L (0.4-2.0) Calcium Level 8.9 mg/dL (8.5-10.1) Total Bilirubin 1.1 mg/dL (0.2-1.0) Aspartate Amino Transf (AST/SGOT) 13 U/L (15-37) Alanine Aminotransferase (ALT/SGPT) 17 U/L (16-63) Alkaline Phosphatase 106 U/L (46-116) Creatine Kinase 66 U/L (39-308) Troponin I Quantitative < 0.017 ng/mL (0.000-0.055) HR-Mte-E-Type Natriuretic Peptide 1371 pg/mL (0-124) Total Protein 7.3 g/dL (6.4-8.2) Albumin 3.6 g/dL (3.4-5.0) Albumin/Globulin Ratio 1.0 (1.0-1.7) Glucose (Fingerstick) 212 mg/dL (70-99) Laboratory Tests Test 02/23/19 08:04 02/23/19 08:10 02/23/19 11:27 O2 Saturation 87 % (92-99) Arterial Blood pH 7.44 (7.35-7.45) Arterial Blood pCO2 at Patient Temp 35 mmHg (35-46) Arterial Blood pO2 at Patient Temp 52 mmHg (65-108) Arterial Blood HCO3 23 mmol/L (21-28) Arterial Blood Base Excess 0 mmol/L (-3-3) FiO2 21% ra White Blood Count 8.9 x10^3/uL (4.0-11.0) Red Blood Count 4.94 x10^6/uL (4.30-5.70) Hemoglobin 14.6 g/dL (13.0-17.5) Hematocrit 44.3 % (39.0-53.0) Mean Corpuscular Volume 90 fL (79-100) Mean Corpuscular Hemoglobin 30 pg (25-35) Mean Corpuscular Hemoglobin Concent 33 g/dL (31-37) Red Cell Distribution Width 14.8 % (11.5-14.5) Platelet Count 231 x10^3/uL (140-400) Neutrophils (%) (Auto) 73 % (31-73) Lymphocytes (%) (Auto) 17 % (24-48) Monocytes (%) (Auto) 8 % (0-9) Eosinophils (%) (Auto) 2 % (0-3) Basophils (%) (Auto) 1 % (0-3) Neutrophils # (Auto) 6.4 x10^3/uL (1.8-7.7) Lymphocytes # (Auto) 1.5 x10^3/uL (1.0-4.8) Monocytes # (Auto) 0.7 x10^3/uL (0.0-1.1) Eosinophils # (Auto) 0.2 x10^3/uL (0.0-0.7) Basophils # (Auto) 0.1 x10^3/uL (0.0-0.2) Prothrombin Time 14.2 SEC (11.7-14.0) Prothromb Time International Ratio 1.1 (0.8-1.1) D-Dimer (Marga) 1.12 ug/mlFEU (0.00-0.50) Sodium Level 141 mmol/L (136-145) Potassium Level 3.9 mmol/L (3.5-5.1) Chloride Level 105 mmol/L (98-107) Carbon Dioxide Level 25 mmol/L (21-32) Anion Gap 11 (6-14) Blood Urea Nitrogen 18 mg/dL (8-26) Creatinine 0.8 mg/dL (0.7-1.3) Estimated GFR (Cockcroft-Gault) 97.0 BUN/Creatinine Ratio 23 (6-20) Glucose Level 160 mg/dL (70-99) Lactic Acid Level 1.7 mmol/L (0.4-2.0) Calcium Level 8.9 mg/dL (8.5-10.1) Total Bilirubin 1.1 mg/dL (0.2-1.0) Aspartate Amino Transf (AST/SGOT) 13 U/L (15-37) Alanine Aminotransferase (ALT/SGPT) 17 U/L (16-63) Alkaline Phosphatase 106 U/L (46-116) Creatine Kinase 66 U/L (39-308) Troponin I Quantitative < 0.017 ng/mL (0.000-0.055) HM-Eau-D-Type Natriuretic Peptide 1371 pg/mL (0-124) Total Protein 7.3 g/dL (6.4-8.2) Albumin 3.6 g/dL (3.4-5.0) Albumin/Globulin Ratio 1.0 (1.0-1.7) Glucose (Fingerstick) 212 mg/dL (70-99) VTE Prophylaxis Ordered VTE Prophylaxis Devices: No VTE Pharmacological Prophylaxi: Yes Assessment/Plan Assessment/Plan acute dyspnea, SIRS COPD with acute bronchitis RLL pneumonia dysphagia, prob esophageal, complains of solid food problems only, consult GI, discussed with speech admit MEENA GARCES MD Feb 23, 2019 16:49
--- NOTE | 2019-02-23 17:01 | CONS ---
DATE OF CONSULTATION: PULMONARY CONSULTATION REASON FOR CONSULTATION: Shortness of breath. HISTORY OF PRESENT ILLNESS: The patient is a 63-year-old male who is admitted to the hospital because of shortness of breath and hypoxemia. He denies any childhood respiratory problems. He started smoking tobacco before he was 8 years old. He continued to smoke until 6 months ago. He was a heavy smoker, who typically consumed 3 packs of cigarettes per day when smoking as an adult. He has had a diagnosis of COPD since his early 50s. He has had more admissions for COPD than he can remember. His last admission for COPD was 6 months ago. The patient notes that his sputum changed when he stopped smoking 6 months ago. He started coughing up more typically thick white mucus, although occasionally it would be yellow or green. He states that there has not been any change in his mucus production in the past several weeks. He has not been having any fever. The patient also has a significant history of coronary artery disease. He had a myocardial infarction and had stent placement done approximately 4 years ago. He notes that he has been having more shortness of breath for the past 3 weeks. He has had orthopnea and paroxysmal nocturnal dyspnea. He also notes that he has been having chest tightness and chest pain with his shortness of breath. The patient came in to the [facility]. A chest x-ray was obtained that showed a right mid lung field abnormality, possibly an infiltrate. He had hypoxemia on room air. He was admitted and antibiotics, steroids and nebulized bronchodilators were started. He feels about the same since admission. PAST MEDICAL HISTORY: Significant for the COPD and coronary artery disease noted above. He has diabetes, hyperlipidemia and a past CVA. He has had a pacemaker implanted. He has had appendectomy and a cholecystectomy. SOCIAL HISTORY: See above tobacco smoke exposure. FAMILY HISTORY: Negative for lung disease. REVIEW OF SYSTEMS: A 12-point review of systems was obtained. He has generalized fatigue in addition to what is noted above. Otherwise, a 12-point review of systems was negative. PHYSICAL EXAMINATION: GENERAL: Reveals a male on oxygen, in no acute distress. VITAL SIGNS: He is afebrile. His heart rate is 102 and regular, his blood pressure is 120/66, his oxygen saturation is 92% on 4 liters of oxygen. His respiratory rate is 20 per minute. He has a prolonged exhalation phase, but without any accessory muscle use. HEENT: Unremarkable. NECK: There is no JVD or lymphadenopathy. CHEST: He has equal, diminished breath sounds in all lung garcia. He has a few basilar rales. There is no wheezing. CARDIOVASCULAR: He has distant heart sounds with a regular rhythm. I do not appreciate any murmur or gallop. ABDOMEN: Soft, without apparent masses. EXTREMITIES: He has trace pretibial edema. There is no cyanosis or clubbing. NEUROLOGIC: He is alert, oriented and appropriate. Cranial nerves, motor, and coordination are all grossly intact. LABORATORY DATA: He had a blood gas obtained earlier today on room air. His oxygen saturation was 87%. His pH was 7.44. His pCO2 was 35. His pO2 was 52. His white count was 8900 with an unremarkable differential. His hemoglobin is 14. He had a BNP that was elevated at 1371. His troponin was low. IMPRESSION: 1. Acute hypoxic respiratory failure. 2. Abnormal chest x-ray. See comments below. 3. Chronic obstructive pulmonary disease. 4. Coronary artery disease. COMMENT: I did review his chest x-ray. I agree that he has a vague right mid lung field infiltrate. It is compatible with either pneumonia or pulmonary edema. His history to me is more compatible with pulmonary edema, although I do not think that you can be certain. PLAN: I agree with treating the patient with broad-spectrum antibiotics, bronchodilators, steroids and low flow oxygen. Given his known coronary artery disease and his history, I do have significant concerns that this is more cardiogenic in origin. I have taken the liberty of asking Cardiology to see the patient. I will follow along with you. Thank you for consulting on this very nice patient. If you have any questions, please do not hesitate to contact me. JACQUES MENDOZA MD DR: KALINA/allison JOB#: [id number] / [id number]
[2019-02-23] MEDS ORDERED: ACETAMINOPHEN 500 MG TABLET PO ONE (18:15)
[2019-02-23] MEDS ORDERED: HYDROmorphone 2 MG/ML VIAL IVP ONE (18:15)
[2019-02-23] MEDS: guaiFENesin ORAL 200 MG/10 ML LIQUID. PO PRN (18:16)
[2019-02-23] MEDS: BUDESONIDE 0.5 MG/2 ML NEBU. NEB SCH (19:40)
[2019-02-23 19:55] VITALS: BP 148/69
[2019-02-23] MEDS: methylPREDNISolone SOD SUCC PF 40 MG/ML VIAL. IV SCH (20:25)
[2019-02-23] MEDS: TAMSULOSIN 0.4 MG CAP.ER.24H. PO SCH (20:25)
[2019-02-23] MEDS: SENNOSIDES 8.6 MG TABLET PO SCH (20:25)
[2019-02-23] MEDS: ATORVASTATIN CALCIUM 20 MG TABLET PO SCH (20:25)
[2019-02-23] MEDS: GABAPENTIN 300 MG CAPSULE. PO SCH (20:26)
[2019-02-23] MEDS: INSULIN GLARGINE SYRINGE. SQ SCH (20:39)
[2019-02-23] MEDS ORDERED: NON FORMULARY ITEM (Budesonide/Formoterol Fumarate (Symbicort 160-4.5 Mcg Inhaler) 2 PUFF) IH SCH (21:00)
[2019-02-23] MEDS ORDERED: DEXTROSE 50% 25 GM / 50ML DISP.SYRIN. IV PRN (21:30)
[2019-02-23] MEDS: INSULIN LISPRO 300 UNITS/3 ML VIAL. SQ SCH (21:33)
[2019-02-23 22:54] VITALS: BP 137/76
[2019-02-24 03:36] VITALS: BP 133/84
[2019-02-24 06:57] VITALS: BP 124/67
[2019-02-24] MEDS: BUDESONIDE 0.5 MG/2 ML NEBU. NEB SCH ×2 (07:13→20:32)
[2019-02-24] MEDS: ALBUTEROL SULFATE 2.5 MG/3 ML NEBU. NEB SCH ×4 (07:13→20:32)
[2019-02-24] MEDS: PANTOPRAZOLE 40 MG TABLET.DR. PO SCH (07:43)
[2019-02-24] MEDS: ASPIRIN 325 MG TABLET PO SCH (07:43)
[2019-02-24] MEDS: TAMSULOSIN 0.4 MG CAP.ER.24H. PO SCH ×2 (07:43→20:30)
[2019-02-24] MEDS: DULoxetine HCL 30 MG CAPSULE.DR PO SCH (07:43)
[2019-02-24] MEDS: GABAPENTIN 300 MG CAPSULE. PO SCH ×3 (07:44→20:30)
[2019-02-24] MEDS: DOXYCYCLINE HYCLATE 100 MG TABLET PO SCH ×2 (07:44→20:30)
[2019-02-24] MEDS: oxyCODONE IR 5 MG TABLET PO PRN ×3 (07:45→20:30)
[2019-02-24] MEDS: methylPREDNISolone SOD SUCC PF 40 MG/ML VIAL. IV SCH ×2 (07:46→20:38)
[2019-02-24] MEDS: INSULIN LISPRO 300 UNITS/3 ML VIAL. SQ SCH ×5 (08:07→18:03)
[2019-02-24] MEDS: INSULIN GLARGINE SYRINGE. SQ SCH ×3 (08:07→20:51)
--- NOTE | 2019-02-24 09:15 | NUR ---
Paged Dr. Morrissey to come see patient, message left with answering service.
--- NOTE | 2019-02-24 09:19 | PDOC ---
PULMONARY PROGRESS NOTES Subjective The patient is a 63-year-old male who is admitted to the hospital because of shortness of breath and hypoxemia. He denies any childhood respiratory problems. He started smoking tobacco before he was 8 years old. He continued to smoke until 6 months ago. He was a heavy smoker, who typically consumed 3 packs of cigarettes per day when smoking as an adult. He has had a diagnosis of COPD since his early 50s. He has had more admissions for COPD than he can remember. His last admission for COPD was 6 months ago. The patient notes that his sputum changed when he stopped smoking 6 months ago. He started coughing up more typically thick white mucus, although occasionally it would be yellow or green. He states that there has not been any change in his mucus production in the past several weeks. He has not been having any fever. The patient also has a significant history of coronary artery disease. He had a myocardial infarction and had stent placement done approximately 4 years ago. He notes that he has been having more shortness of breath for the past 3 weeks. He has had orthopnea and paroxysmal nocturnal dyspnea. He also notes that he has been having chest tightness and chest pain with his shortness of breath. The patient came in to the [facility]. A chest x-ray was obtained that showed a right mid lung field abnormality, possibly an infiltrate. He had hypoxemia on room air. He was admitted and antibiotics, steroids and nebulized bronchodilators were started. Over night he feels modestly improved with less shortness of breath. He still haschest tightness. Vitals Vital Signs Date Time Temp Pulse Resp B/P (MAP) Pulse Ox O2 Delivery O2 Flow Rate FiO2 02/24/19 08:00 Nasal Cannula 4.0 02/24/19 07:15 96 02/24/19 06:57 97.7 102 24 124/67 (86) 97.7 ROS: No Nausea, No Abdominal Pain General: Alert, Mild Distress Lungs: Other (he has equal, diminished breath sounds without wheezing. few bibasilar rales.) Cardiovascular: S1, S2 Abdomen: Soft, Non-tender, Other Neuro Exam: Alert, Oriented, No Focal Findings Extremities: Other (trace bilateral pretibial edema) Skin: Warm Labs Laboratory Tests Test 02/23/19 08:04 02/23/19 08:10 02/23/19 11:27 02/23/19 16:32 O2 Saturation 87 % (92-99) Arterial Blood pH 7.44 (7.35-7.45) Arterial Blood pCO2 at Patient Temp 35 mmHg (35-46) Arterial Blood pO2 at Patient Temp 52 mmHg (65-108) Arterial Blood HCO3 23 mmol/L (21-28) Arterial Blood Base Excess 0 mmol/L (-3-3) FiO2 21% ra White Blood Count 8.9 x10^3/uL (4.0-11.0) Red Blood Count 4.94 x10^6/uL (4.30-5.70) Hemoglobin 14.6 g/dL (13.0-17.5) Hematocrit 44.3 % (39.0-53.0) Mean Corpuscular Volume 90 fL (79-100) Mean Corpuscular Hemoglobin 30 pg (25-35) Mean Corpuscular Hemoglobin Concent 33 g/dL (31-37) Red Cell Distribution Width 14.8 % (11.5-14.5) Platelet Count 231 x10^3/uL (140-400) Neutrophils (%) (Auto) 73 % (31-73) Lymphocytes (%) (Auto) 17 % (24-48) Monocytes (%) (Auto) 8 % (0-9) Eosinophils (%) (Auto) 2 % (0-3) Basophils (%) (Auto) 1 % (0-3) Neutrophils # (Auto) 6.4 x10^3/uL (1.8-7.7) Lymphocytes # (Auto) 1.5 x10^3/uL (1.0-4.8) Monocytes # (Auto) 0.7 x10^3/uL (0.0-1.1) Eosinophils # (Auto) 0.2 x10^3/uL (0.0-0.7) Basophils # (Auto) 0.1 x10^3/uL (0.0-0.2) Prothrombin Time 14.2 SEC (11.7-14.0) Prothromb Time International Ratio 1.1 (0.8-1.1) D-Dimer (Marga) 1.12 ug/mlFEU (0.00-0.50) Sodium Level 141 mmol/L (136-145) Potassium Level 3.9 mmol/L (3.5-5.1) Chloride Level 105 mmol/L (98-107) Carbon Dioxide Level 25 mmol/L (21-32) Anion Gap 11 (6-14) Blood Urea Nitrogen 18 mg/dL (8-26) Creatinine 0.8 mg/dL (0.7-1.3) Estimated GFR (Cockcroft-Gault) 97.0 BUN/Creatinine Ratio 23 (6-20) Glucose Level 160 mg/dL (70-99) Lactic Acid Level 1.7 mmol/L (0.4-2.0) Calcium Level 8.9 mg/dL (8.5-10.1) Total Bilirubin 1.1 mg/dL (0.2-1.0) Aspartate Amino Transf (AST/SGOT) 13 U/L (15-37) Alanine Aminotransferase (ALT/SGPT) 17 U/L (16-63) Alkaline Phosphatase 106 U/L (46-116) Creatine Kinase 66 U/L (39-308) Troponin I Quantitative < 0.017 ng/mL (0.000-0.055) IE-Mbb-N-Type Natriuretic Peptide 1371 pg/mL (0-124) Total Protein 7.3 g/dL (6.4-8.2) Albumin 3.6 g/dL (3.4-5.0) Albumin/Globulin Ratio 1.0 (1.0-1.7) Glucose (Fingerstick) 212 mg/dL (70-99) 276 mg/dL (70-99) Test 02/23/19 21:01 02/24/19 07:00 Glucose (Fingerstick) 346 mg/dL (70-99) 265 mg/dL (70-99) Laboratory Tests Test 02/23/19 11:27 02/23/19 16:32 02/23/19 21:01 02/24/19 07:00 Glucose (Fingerstick) 212 mg/dL (70-99) 276 mg/dL (70-99) 346 mg/dL (70-99) 265 mg/dL (70-99) Medications Active Scripts Medications Dose Route/Sig Max Daily Dose Days Date Category Dose Instructions Symbicort 160-4.5 Mcg Inhaler (Budesonide/Formoterol Fumarate) 10.2 Gm Hfa.aer.ad 2 Puff IH BID 02/23/19 Reported Duloxetine Hcl 60 Mg Capsule.dr 60 Mg PO DAILY 02/23/19 Reported Atorvastatin Calcium 20 Mg Tablet 20 Mg PO HS 02/23/19 Reported One Daily Multivitamin (Multivitamin) 1 Each Tablet 1 Tab PO DAILY 30 02/23/19 Reported Cranberry (Cranberry Extract) 425 Mg Capsule 4,200 Mg PO BID 07/17/18 Reported Senna (Sennosides) 8.6 Mg Tablet 8.6 Mg PO HS 07/17/18 Reported Tylenol (Acetaminophen) 325 Mg Tablet 2 Tab PO PRN Q4HRS 07/17/18 Reported Tresiba Flextouch U-100 (Insulin Degludec) 100 Unit/1 Ml Insuln.pen 70 Unit SQ HS 07/17/18 Reported Tresiba (Insulin Degludec) 100 Unit/1 Ml Vial 75 Unit SQ DAILY07 07/17/18 Reported Gabapentin (Gabapentin) 300 Mg Capsule 600 Mg PO TID 07/17/18 Reported Duoneb 0.5-3(2.5) Mg/3 Ml (Albuterol/Ipratropium) 3 Ml Ampul.neb 3 Ml NEB Q6HRS 30 01/03/18 Rx Oxycodone Hcl Immed.release (Oxycodone Hcl) 10 Mg Tablet 1 Tab PO QID PRN 01/03/18 Rx Tamsulosin Hcl 0.4 Mg Cap.er.24h 1 Cap PO BID 01/03/18 Rx Aspirin 325 Mg Tablet 1 Tab PO DAILY 11/28/17 Reported Prilosec (Omeprazole) 40 Mg Capsule.dr 40 Mg PO DAILY 07/11/13 Reported MAY TAKE ANY TIME Impression . The patient is a 63-year-old male who is admitted to the hospital because of shortness of breath and hypoxemia. He denies any childhood respiratory problems. He started smoking tobacco before he was 8 years old. He continued to smoke until 6 months ago. He was a heavy smoker, who typically consumed 3 packs of cigarettes per day when smoking as an adult. He has had a diagnosis of COPD since his early 50s. He has had more admissions for COPD than he can remember. His last admission for COPD was 6 months ago. The patient notes that his sputum changed when he stopped smoking 6 months ago. He started coughing up more typically thick white mucus, although occasionally it would be yellow or green. He states that there has not been any change in his mucus production in the past several weeks. He has not been having any fever. The patient also has a significant history of coronary artery disease. He had a myocardial infarction and had stent placement done approximately 4 years ago. He notes that he has been having more shortness of breath for the past 3 weeks. He has had orthopnea and paroxysmal nocturnal dyspnea. He also notes that he has been having chest tightness and chest pain with his shortness of breath. IMPRESSION: 1. Acute hypoxic respiratory failure, subjectively slightly improved. 2. Abnormal chest x-ray. See comments below. 3. Chronic obstructive pulmonary disease. 4. Coronary artery disease. COMMENT: I did review his chest x-ray. I agree that he has a vague right mid lung field infiltrate. It is compatible with either pneumonia or pulmonary edema. His history to me is more compatible with pulmonary edema, although I do not think that you can be certain. Plan . The patient is a 63-year-old male who is admitted to the hospital because of shortness of breath and hypoxemia. He denies any childhood respiratory problems. He started smoking tobacco before he was 8 years old. He continued to smoke until 6 months ago. He was a heavy smoker, who typically consumed 3 packs of cigarettes per day when smoking as an adult. He has had a diagnosis of COPD since his early 50s. He has had more admissions for COPD than he can remember. His last admission for COPD was 6 months ago. The patient notes that his sputum changed when he stopped smoking 6 months ago. He started coughing up more typically thick white mucus, although occasionally it would be yellow or green. He states that there has not been any change in his mucus production in the past several weeks. He has not been having any fever. The patient also has a significant history of coronary artery disease. He had a myocardial infarction and had stent placement done approximately 4 years ago. He notes that he has been having more shortness of breath for the past 3 weeks. He has had orthopnea and paroxysmal nocturnal dyspnea. He also notes that he has been having chest tightness and chest pain with his shortness of breath. The patient came in to the [place] [facility]. A chest x-ray was obtained that showed a right mid lung field abnormality, possibly an infiltrate. He had hypoxemia on room air. He was admitted and antibiotics, steroids and nebulized bronchodilators were started. He feels about the same since admission. Continue broad-spectrum antibiotics, bronchodilators, steroids and low flow oxygen. Awaiting cardiology input. JACQUES MENDOZA MD Feb 24, 2019 09:19
[2019-02-24] MEDS: cefTRIAXone IV Push 1 GM VIAL. IVP SCH (09:28)
[2019-02-24 10:34] VITALS: BP 132/74
--- NOTE | 2019-02-24 11:22 | PDOC ---
PROGRESS NOTES Chief Complaint Chief Complaint A/P Acute COPD exacerbation SIRS - sepsis given his pneumonia, given antibiotics RLL pneumonia CAD s/p prior PCI to RCA Acute hypoxic respiratory failure - wean O2 as tolerated. has never had home O2 Smoker - very heavy, offered nicotine patch. He has apparently been using smokeless tobacco in house, counseled against this. dysphagia, prob esophageal, complains of solid food problems only, consult GI, discussed with speech History of Present Illness History of Present Illness Mr Whitt is a 63-year-old male w/ PMHx CAD s/p stenting, CHF, PPM in situ, Hyperlipidemia, COPD, prior CVA, Periperal neuropathy, GERD, Cirrhosis, Depression, BPH, DM2, ex-smoker who p/w shortness of breath and hypoxemia. Smoked 3ppd of cigarettes since age 8 until 6 months ago, but on further review he started smoking cigars and using chewing tobacco instead. Multiple hospitalizations for COPD exacerbations. He notes that he has been having more shortness of breath for the past 3 weeks. He has had orthopnea and paroxysmal nocturnal dyspnea. He also notes that he has been having chest tightness and chest pain with his shortness of breath. Overnight breathing improved somewhat, but still on O2, not great air movement, cough productive of brown sputum. No CP. He has apparently been using smokeless tobacco in house, counseled against this. Vitals Vitals Vital Signs Date Time Temp Pulse Resp B/P (MAP) Pulse Ox O2 Delivery O2 Flow Rate FiO2 02/24/19 10:34 97.9 106 24 132/74 (93) 96 Nasal Cannula 4.0 97.9 Physical Exam General: Alert, Cooperative, mild distress Lungs: Other (he has equal, diminished breath sounds without wheezing. few bibasilar rales.) Abdomen: Normal bowel sounds, Soft Extremities: No clubbing, No edema, Normal pulses Skin: No rashes, No breakdown Labs LABS Laboratory Tests Test 02/23/19 11:27 02/23/19 16:32 02/23/19 21:01 02/24/19 07:00 Glucose (Fingerstick) 212 mg/dL (70-99) 276 mg/dL (70-99) 346 mg/dL (70-99) 265 mg/dL (70-99) Assessment and Plan Assessmemt and Plan Problems Medical Problems: (1) Acute respiratory distress Status: Acute (2) CAP (community acquired pneumonia) Status: Acute (3) Hypoxia Status: Acute Comment Review of Relevant I have reviewed the following items bud (where applicable) has been applied. Labs Laboratory Tests Test 02/23/19 08:04 02/23/19 08:10 02/23/19 11:27 02/23/19 16:32 O2 Saturation 87 % (92-99) Arterial Blood pH 7.44 (7.35-7.45) Arterial Blood pCO2 at Patient Temp 35 mmHg (35-46) Arterial Blood pO2 at Patient Temp 52 mmHg (65-108) Arterial Blood HCO3 23 mmol/L (21-28) Arterial Blood Base Excess 0 mmol/L (-3-3) FiO2 21% ra White Blood Count 8.9 x10^3/uL (4.0-11.0) Red Blood Count 4.94 x10^6/uL (4.30-5.70) Hemoglobin 14.6 g/dL (13.0-17.5) Hematocrit 44.3 % (39.0-53.0) Mean Corpuscular Volume 90 fL (79-100) Mean Corpuscular Hemoglobin 30 pg (25-35) Mean Corpuscular Hemoglobin Concent 33 g/dL (31-37) Red Cell Distribution Width 14.8 % (11.5-14.5) Platelet Count 231 x10^3/uL (140-400) Neutrophils (%) (Auto) 73 % (31-73) Lymphocytes (%) (Auto) 17 % (24-48) Monocytes (%) (Auto) 8 % (0-9) Eosinophils (%) (Auto) 2 % (0-3) Basophils (%) (Auto) 1 % (0-3) Neutrophils # (Auto) 6.4 x10^3/uL (1.8-7.7) Lymphocytes # (Auto) 1.5 x10^3/uL (1.0-4.8) Monocytes # (Auto) 0.7 x10^3/uL (0.0-1.1) Eosinophils # (Auto) 0.2 x10^3/uL (0.0-0.7) Basophils # (Auto) 0.1 x10^3/uL (0.0-0.2) Prothrombin Time 14.2 SEC (11.7-14.0) Prothromb Time International Ratio 1.1 (0.8-1.1) D-Dimer (Marga) 1.12 ug/mlFEU (0.00-0.50) Sodium Level 141 mmol/L (136-145) Potassium Level 3.9 mmol/L (3.5-5.1) Chloride Level 105 mmol/L (98-107) Carbon Dioxide Level 25 mmol/L (21-32) Anion Gap 11 (6-14) Blood Urea Nitrogen 18 mg/dL (8-26) Creatinine 0.8 mg/dL (0.7-1.3) Estimated GFR (Cockcroft-Gault) 97.0 BUN/Creatinine Ratio 23 (6-20) Glucose Level 160 mg/dL (70-99) Lactic Acid Level 1.7 mmol/L (0.4-2.0) Calcium Level 8.9 mg/dL (8.5-10.1) Total Bilirubin 1.1 mg/dL (0.2-1.0) Aspartate Amino Transf (AST/SGOT) 13 U/L (15-37) Alanine Aminotransferase (ALT/SGPT) 17 U/L (16-63) Alkaline Phosphatase 106 U/L (46-116) Creatine Kinase 66 U/L (39-308) Troponin I Quantitative < 0.017 ng/mL (0.000-0.055) IZ-Rwn-F-Type Natriuretic Peptide 1371 pg/mL (0-124) Total Protein 7.3 g/dL (6.4-8.2) Albumin 3.6 g/dL (3.4-5.0) Albumin/Globulin Ratio 1.0 (1.0-1.7) Glucose (Fingerstick) 212 mg/dL (70-99) 276 mg/dL (70-99) Test 02/23/19 21:01 02/24/19 07:00 Glucose (Fingerstick) 346 mg/dL (70-99) 265 mg/dL (70-99) Laboratory Tests Test 02/23/19 11:27 02/23/19 16:32 02/23/19 21:01 02/24/19 07:00 Glucose (Fingerstick) 212 mg/dL (70-99) 276 mg/dL (70-99) 346 mg/dL (70-99) 265 mg/dL (70-99) Microbiology 02/23/19 Blood Culture - Preliminary, Resulted NO GROWTH AFTER 1 DAY Medications Current Medications Albuterol/ Ipratropium (Duoneb) 3 ml 1X ONCE NEB Last administered on 02/23/19 08:20; Start 02/23/19 at 08:30; Stop 02/23/19 at 08:31; Status DC Methylprednisolone Sodium Succinate (SOLU-Medrol 125MG VIAL) 125 mg 1X ONCE IV Last administered on 02/23/19at 08:35; Start 02/23/19 at 08:30; Stop 02/23/19 at 08:31; Status DC Sodium Chloride 1,000 ml @ 1,000 mls/hr 1X ONCE IV Last administered on 02/23/19 09:28; Start 02/23/19 at 08:45; Stop 02/23/19 at 09:44; Status DC Ceftriaxone Sodium (Rocephin) 1 gm 1X ONCE IVP Last administered on 02/23/19 09:28; Start 02/23/19 at 09:30; Stop 02/23/19 at 09:31; Status DC Vancomycin HCl 250 ml @ 250 mls/hr 1X ONCE IV ; Start 02/23/19 at 09:15; Stop 02/23/19 at 10:14; Status UNV Vancomycin HCl 2 gm/Sodium Chloride 500 ml @ 250 mls/hr 1X ONCE IV Last administered on 02/23/19at 09:28; Start 02/23/19 at 09:30; Stop 02/23/19 at 11:29; Status DC Fentanyl Citrate (Fentanyl 2ml Vial) 50 mcg 1X ONCE IVP Last administered on 02/23/19at 09:41; Start 02/23/19 at 10:00; Stop 02/23/19 at 10:01; Status DC Acetaminophen (Tylenol) 650 mg PRN Q4HRS PRN PO MILD PAIN / TEMP; Start 02/23/19 at 11:45 Aspirin (Jorge Luis Aspirin) 325 mg DAILYWBKFT PO Last administered on 02/24/19at 07:43; Start 02/24/19 at 08:00 Atorvastatin Calcium (Lipitor) 20 mg HS PO Last administered on 02/23/19at 20:25; Start 02/23/19 at 21:00 Gabapentin (Neurontin) 600 mg QID PO Last administered on 02/23/19at 12:54; Start 02/23/19 at 13:00; Stop 02/23/19 at 17:14; Status DC Sennosides (Senna) 8.6 mg HS PO Last administered on 02/23/19 20:25; Start 02/23/19 at 21:00 Tamsulosin HCl (Flomax) 0.4 mg BID PO Last administered on 02/24/19 07:43; Start 02/23/19 at 21:00 Non-Formulary Medication (Budesonide/ Formoterol Fumarate (Symbicort 160-4.5 Mcg Inhaler)) 2 puff BID IH ; Start 02/23/19 at 21:00; Status UNV Duloxetine HCl (Cymbalta) 60 mg DAILY PO Last administered on 02/24/19 07:43; Start 02/23/19 at 13:00 Insulin Glargine (Lantus Syringe) 70 unit QHS SQ Last administered on 02/23/19 20:39; Start 02/23/19 at 21:00 Insulin Glargine (Lantus Syringe) 75 unit DAILY07 SQ Last administered on 02/24/19 08:07; Start 02/24/19 at 07:00 Pantoprazole Sodium (Protonix) 40 mg DAILYAC PO Last administered on 02/24/19 07:43; Start 02/24/19 at 07:30 Albuterol Sulfate (Ventolin Neb Soln) 2.5 mg PRN Q4HRS PRN NEB SHORTNESS OF BREATH; Start 02/23/19 at 12:00 Methylprednisolone Sodium Succinate (SOLU-Medrol 40MG VIAL) 40 mg Q12HR IV Last administered on 02/24/19 07:46; Start 02/23/19 at 21:00 Ceftriaxone Sodium (Rocephin) 1 gm Q24H IVP Last administered on 02/24/19 09:28; Start 02/24/19 at 09:00 Doxycycline Hyclate (Vibra-Tab) 100 mg BID PO Last administered on 02/24/19 07:44; Start 02/23/19 at 13:00 Budesonide (Pulmicort) 0.5 mg RTBID NEB Last administered on 02/24/19 07:13; Start 02/23/19 at 13:00 Albuterol Sulfate (Ventolin Neb Soln) 2.5 mg RTQID NEB Last administered on 02/24/19 07:13; Start 02/23/19 at 13:00 Gabapentin (Neurontin) 600 mg TID PO Last administered on 02/24/19 07:44; Start 02/23/19 at 21:00 Oxycodone HCl (Roxicodone) 10 mg PRN Q6HRS PRN PO PAIN Last administered on 02/24/19 07:45; Start 02/23/19 at 18:15 Hydromorphone HCl (Dilaudid) 1 mg 1X ONCE IVP Last administered on 02/23/19 18:17; Start 02/23/19 at 18:15; Stop 02/23/19 at 18:16; Status DC Acetaminophen (Tylenol) 1,000 mg 1X ONCE PO Last administered on 02/23/19 18:16; Start 02/23/19 at 18:15; Stop 02/23/19 at 18:16; Status DC Guaifenesin (Robitussin) 200 mg PRN Q4HRS PRN PO COUGH Last administered on 02/23/19 18:16; Start 02/23/19 at 18:15 Insulin Human Lispro (HumaLOG) 0-7 UNITS TIDWMEALS SQ Last administered on 02/24/19 08:07; Start 02/23/19 at 21:30 Dextrose (Dextrose 50%-Water Syringe) 12.5 gm PRN Q15MIN PRN IV SEE COMMENTS; Start 02/23/19 at 21:30 Active Scripts Active Duoneb 0.5-3(2.5) Mg/3 Ml (Albuterol/Ipratropium) 3 Ml Ampul.neb 3 Ml NEB Q6HRS 30 Days Oxycodone Hcl Immed.release (Oxycodone Hcl) 10 Mg Tablet 1 Tab PO QID PRN Tamsulosin Hcl 0.4 Mg Cap.er.24h 1 Cap PO BID Reported Symbicort 160-4.5 Mcg Inhaler (Budesonide/Formoterol Fumarate) 10.2 Gm Hfa.aer.ad 2 Puff IH BID Duloxetine Hcl 60 Mg Capsule.dr 60 Mg PO DAILY Atorvastatin Calcium 20 Mg Tablet 20 Mg PO HS One Daily Multivitamin (Multivitamin) 1 Each Tablet 1 Tab PO DAILY 30 Days Cranberry (Cranberry Extract) 425 Mg Capsule 4,200 Mg PO BID Senna (Sennosides) 8.6 Mg Tablet 8.6 Mg PO HS Tylenol (Acetaminophen) 325 Mg Tablet 2 Tab PO PRN Q4HRS Tresiba Flextouch U-100 (Insulin Degludec) 100 Unit/1 Ml Insuln.pen 70 Unit SQ HS Tresiba (Insulin Degludec) 100 Unit/1 Ml Vial 75 Unit SQ DAILY07 Gabapentin (Gabapentin) 300 Mg Capsule 600 Mg PO TID Aspirin 325 Mg Tablet 1 Tab PO DAILY Prilosec (Omeprazole) 40 Mg Capsule.dr 40 Mg PO DAILY MAY TAKE ANY TIME Vitals/I & O Vital Sign - Last 24 Hours 02/23/19 02/23/19 02/23/19 02/23/19 14:10 15:11 18:17 19:41 Temp 97.7 97.7 Pulse 116 B/P (MAP) 130/82 (98) Pulse Ox 91 92 94 O2 Delivery Nasal Cannula Nasal Cannula Nasal Cannula Nasal Cannula O2 Flow Rate 4.0 4.0 4.0 4.0 02/23/19 02/23/19 02/23/19 02/23/19 19:43 19:55 20:00 22:54 Temp 97.4 97.6 97.4 97.6 Pulse 106 101 Resp 22 22 B/P (MAP) 148/69 (95) 137/76 (96) Pulse Ox 94 96 98 O2 Delivery Nasal Cannula Nasal Cannula Nasal Cannula Nasal Cannula O2 Flow Rate 4.0 4.0 4.0 4.0 02/24/19 02/24/19 02/24/19 02/24/19 03:36 06:57 07:15 07:45 Temp 97.9 97.7 97.9 97.7 Pulse 102 102 Resp 24 24 B/P (MAP) 133/84 (100) 124/67 (86) Pulse Ox 96 97 96 O2 Delivery Nasal Cannula Nasal Cannula Nasal Cannula Nasal Cannula O2 Flow Rate 4.0 4.0 4.0 4.0 02/24/19 02/24/19 08:00 10:34 Temp 97.9 97.9 Pulse 106 Resp 24 B/P (MAP) 132/74 (93) Pulse Ox 96 O2 Delivery Nasal Cannula Nasal Cannula O2 Flow Rate 4.0 4.0 Intake and Output 02/23/19 02/23/19 02/24/19 15:00 23:00 07:00 Intake Total 1240 ml 600 ml 240 ml Output Total 1400 ml 1100 ml Balance 1240 ml -800 ml -860 ml Images CXR - Reticulonodular pulmonary infiltrate at the right medial lung base either at the middle or lower lobe suspicious for pneumonia. Asymmetric pulmonary edema would be a secondary consideration. Cardiomegaly stable. No pleural effusions. MARS SWANSON MD Feb 24, 2019 11:22
--- NOTE | 2019-02-24 11:48 | PDOC2 ---
GI CONSULT Reason For Consult: Dysphagia HPI: HPI: 63 y/o male admitted with exacerbation of COPD/pneumonia (CHF?). We are asked to see re: dysphagia. Began ~6-8 months ago after admission for lungs. Says worse with meats. OK with liquids or soft foods. May regurgitate offending bolus. He feels he "tore something" with coughing. Has long h/o GERD, taking omeprazole 40mg bid. Remote EGD with "ulcers". NO h/o stomach cancer. s/p kalin for stones. 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 NO liver cancer either. Normal liver on CT here in 2016. No pancreatic history. Still smokes cigars. Heavy drinker in the past. Chronic constipation, taking senna 2 reema;ly. Occasional blood on TP. Says occasional "black stools". Remote colonoscopy with "polyips"? Wt/appetite OK. No N, V. GIFH positive for GB disease in mother. PMH: PMH: COPD, CAD/stented, low LVEF globally, Bilateral CTS, DM, OA, BPH,LORNA. S/P appy, kalin, bilateral CTR's, PPMI, hernia repair FH: Family History: Cancer Social History: Smoke: <1 pack per day ALCOHOL: occassional Drugs: None, Marijuana ROS: GEN: Denies fevers, chills, sweats HEENT: Denies blurred vision, sore throat CV: Denies chest pain RESP: + Shortness of air, cough GI: Per HPI : Denies hematuria, dysuria ENDO: Denies weight changes NEURO: Denies confusion, dizziness MSK: Denies weakness, joint pain/swelling SKIN: Denies jaundice, pruritus Vitals: Vitals: Vital Signs Date Time Temp Pulse Resp B/P (MAP) Pulse Ox O2 Delivery O2 Flow Rate FiO2 02/24/19 11:03 96 Nasal Cannula 3.0 02/24/19 10:34 97.9 106 24 132/74 (93) 97.9 Labs: Labs: Laboratory Tests Test 02/23/19 16:32 02/23/19 21:01 02/24/19 07:00 Glucose (Fingerstick) 276 mg/dL (70-99) 346 mg/dL (70-99) 265 mg/dL (70-99) --elevated BNP and glucoses, otherwise not too remarkable. Allergies: Coded Allergies: No Known Drug Allergies (Unverified , 12/27/17) Medications: Current Medications Medications (Trade) Dose Ordered Sig/Aretha Route PRN Reason Start Time Stop Time Status Last Admin Dose Admin Aspirin (Jorge Luis Aspirin) 325 mg DAILYWBKFT PO 02/24/19 08:00 02/24/19 07:43 Atorvastatin Calcium (Lipitor) 20 mg HS PO 02/23/19 21:00 02/23/19 20:25 Gabapentin (Neurontin) 600 mg QID PO 02/23/19 13:00 02/23/19 17:14 DC 02/23/19 12:54 Sennosides (Senna) 8.6 mg HS PO 02/23/19 21:00 02/23/19 20:25 Tamsulosin HCl (Flomax) 0.4 mg BID PO 02/23/19 21:00 02/24/19 07:43 Duloxetine HCl (Cymbalta) 60 mg DAILY PO 02/23/19 13:00 02/24/19 07:43 Insulin Glargine (Lantus Syringe) 70 unit QHS SQ 02/23/19 21:00 02/23/19 20:39 Insulin Glargine (Lantus Syringe) 75 unit DAILY07 SQ 02/24/19 07:00 02/24/19 08:07 Pantoprazole Sodium (Protonix) 40 mg DAILYAC PO 02/24/19 07:30 02/24/19 07:43 Methylprednisolone Sodium Succinate (SOLU-Medrol 40MG VIAL) 40 mg Q12HR IV 02/23/19 21:00 02/24/19 07:46 Ceftriaxone Sodium (Rocephin) 1 gm Q24H IVP 02/24/19 09:00 02/24/19 09:28 Doxycycline Hyclate (Vibra-Tab) 100 mg BID PO 02/23/19 13:00 02/24/19 07:44 Budesonide (Pulmicort) 0.5 mg RTBID NEB 02/23/19 13:00 02/24/19 07:13 Albuterol Sulfate (Ventolin Neb Soln) 2.5 mg RTQID NEB 02/23/19 13:00 02/24/19 11:02 Gabapentin (Neurontin) 600 mg TID PO 02/23/19 21:00 02/24/19 07:44 Oxycodone HCl (Roxicodone) 10 mg PRN Q6HRS PRN PO PAIN 02/23/19 18:15 02/24/19 07:45 Hydromorphone HCl (Dilaudid) 1 mg 1X ONCE IVP 02/23/19 18:15 02/23/19 18:16 DC 02/23/19 18:17 Acetaminophen (Tylenol) 1,000 mg 1X ONCE PO 02/23/19 18:15 02/23/19 18:16 DC 02/23/19 18:16 Guaifenesin (Robitussin) 200 mg PRN Q4HRS PRN PO COUGH 02/23/19 18:15 02/23/19 18:16 Insulin Human Lispro (HumaLOG) 0-7 UNITS TIDWMEALS SQ 02/23/19 21:30 02/24/19 08:07 Imaging: Imaging: No recent GI imaging. PE: GEN: NAD HEENT: Atraumatic, PERRLA LUNGS: Bilateral exp wheeze HEART: RRR, no murmurs ABD: NABS, S/ND/NT, no masses EXTREMITY: No edema SKIN: No rashes, no jaundice NEURO/PSYCH: A & O 3 A/P: A/P: IMP: Dysphagia, fairly recent onset. Persistent. Concern for possible malignancy; would think chronic PPI would prevent peptic stricture. H/o "polyps" Cirrhosis? Viral? REC: Merits EGD, but would like pulmonary status improved more before sedating. PPI. Merits colonoscopy to f/u possible polyps, but same issues as above. Will get esophagram. check viral serologies --other pending. CORINA MONROE MD Feb 24, 2019 11:48
--- NOTE | 2019-02-24 11:56 | PDOC2 ---
CARDIOLOGY CONSULT NOTE CHEIF COMPLAINT: Cough and chest pain HPI: 63-year-old man well-known to our service with past medical history as noted below coming into the hospital in the setting of progressive cough and dyspnea. He also reports epigastric discomfort which is similar nature to his prior stents. He was seen by the pulmonary service and felt to have a cardiac pathology as well as therefore we were asked to see the patient. He denies any recent changes to his medications but unfortunately continues to smoke. Denies any palpitations or syncope. He does have significant coughing fits. PMHX: Coronary artery disease status post PCI to the RCA Hypertension Severe COPD Tobacco abuse SOCHX: He is . He continues to smoke cigars. Denies illicit drug use. FAMHX: Noncontributory CURRENT MEDS: Current Medications Medications (Trade) Dose Ordered Sig/Aretha Route PRN Reason Start Time Stop Time Status Last Admin Dose Admin Aspirin (Jorge Luis Aspirin) 325 mg DAILYWBKFT PO 02/24/19 08:00 02/24/19 07:43 Atorvastatin Calcium (Lipitor) 20 mg HS PO 02/23/19 21:00 02/23/19 20:25 Gabapentin (Neurontin) 600 mg QID PO 02/23/19 13:00 02/23/19 17:14 DC 02/23/19 12:54 Sennosides (Senna) 8.6 mg HS PO 02/23/19 21:00 02/23/19 20:25 Tamsulosin HCl (Flomax) 0.4 mg BID PO 02/23/19 21:00 02/24/19 07:43 Duloxetine HCl (Cymbalta) 60 mg DAILY PO 02/23/19 13:00 02/24/19 07:43 Insulin Glargine (Lantus Syringe) 70 unit QHS SQ 02/23/19 21:00 02/23/19 20:39 Insulin Glargine (Lantus Syringe) 75 unit DAILY07 SQ 02/24/19 07:00 02/24/19 08:07 Pantoprazole Sodium (Protonix) 40 mg DAILYAC PO 02/24/19 07:30 02/24/19 07:43 Methylprednisolone Sodium Succinate (SOLU-Medrol 40MG VIAL) 40 mg Q12HR IV 02/23/19 21:00 02/24/19 07:46 Ceftriaxone Sodium (Rocephin) 1 gm Q24H IVP 02/24/19 09:00 02/24/19 09:28 Doxycycline Hyclate (Vibra-Tab) 100 mg BID PO 02/23/19 13:00 02/24/19 07:44 Budesonide (Pulmicort) 0.5 mg RTBID NEB 02/23/19 13:00 02/24/19 07:13 Albuterol Sulfate (Ventolin Neb Soln) 2.5 mg RTQID NEB 02/23/19 13:00 02/24/19 11:02 Gabapentin (Neurontin) 600 mg TID PO 02/23/19 21:00 02/24/19 07:44 Oxycodone HCl (Roxicodone) 10 mg PRN Q6HRS PRN PO PAIN 02/23/19 18:15 02/24/19 07:45 Hydromorphone HCl (Dilaudid) 1 mg 1X ONCE IVP 02/23/19 18:15 02/23/19 18:16 DC 02/23/19 18:17 Acetaminophen (Tylenol) 1,000 mg 1X ONCE PO 02/23/19 18:15 02/23/19 18:16 DC 02/23/19 18:16 Guaifenesin (Robitussin) 200 mg PRN Q4HRS PRN PO COUGH 02/23/19 18:15 02/23/19 18:16 Insulin Human Lispro (HumaLOG) 0-7 UNITS TIDWMEALS SQ 02/23/19 21:30 02/24/19 08:07 ALLERGIES: Allergies Coded Allergies Type Severity Reaction Last Updated Verified No Known Drug Allergies 12/27/17 No ROS: Negative for 10 out of 14 systems reviewed unless otherwise mentioned above in history of present illness PHYSICAL EXAM: Vital Signs/I&O: Vital Signs Date Time Temp Pulse Resp B/P (MAP) Pulse Ox O2 Delivery O2 Flow Rate FiO2 02/24/19 11:03 96 Nasal Cannula 3.0 02/24/19 10:34 97.9 106 24 132/74 (93) 97.9 I & O 02/23/19 02/23/19 02/24/19 15:00 23:00 07:00 Intake Total 1240 ml 600 ml 240 ml Output Total 1400 ml 1100 ml Balance 1240 ml -800 ml -860 ml Physical Exam: The patient appeared well nourished and normally developed. Head exam is unremarkable. No scleral icterus or corneal arcus noted. Neck is without jugular venous distension, thyromegaly, or carotid bruits. Carotid upstrokes are brisk bilaterally. Lungs notable for significant decreased breath sounds bilaterally Cardiac exam reveals the PMI to be normally sized and situated. Rhythm is regular. First and second heart sounds normal. No murmurs, rubs or gallops. Abdominal exam reveals normal bowel sounds, no masses, no organomegaly and no aortic enlargement. Extremities are nonedematous and both femoral and pedal pulses are normal. Msk: No traumua Neuro: No focal deficits DIAGNOSTIC TESTING: Troponin negative 1 BNP elevated at 1371 EKG with LVH and sinus rhythm with left axis deviation Echo in September 2017 revealed mild LV dysfunction with ejection fraction of 45%. He has a pacemaker for carotid hypersensitivity Cardiac catheterization in 2015 revealed single-vessel coronary disease status post PCI to the RCA ASSESSMENT: 1. Unstable angina with severe COPD 2. Known coronary artery disease status post PCI 3. Hypertension 4. Dyslipidemia PLAN: 1. Continue aspirin and atorvastatin therapy. Discussed with pulmonary service and we will plan for a heart catheterization tomorrow. We will consider a right and left heart catheterization as needed. Supportive care for now. Discussed with patient at bedside and he is agreeable to the procedure and understands the risks, benefits and alternatives. Discussed with the patient's as well. ALVARO HAIDER MD Feb 24, 2019 11:56
[2019-02-24 14:13] VITALS: BP 171/77
[2019-02-24 18:29] VITALS: BP 143/73
[2019-02-24] MEDS: LACTOBACILLUS RHAMNOSUS GG 1 CAPSULE. PO SCH (20:29)
[2019-02-24] MEDS: SENNOSIDES 8.6 MG TABLET PO SCH (20:30)
[2019-02-24] MEDS: ATORVASTATIN CALCIUM 20 MG TABLET PO SCH (20:31)
[2019-02-24 22:13] VITALS: BP 151/77
[2019-02-25] VITALS (14 sets, daily range): BP systolic 124–147; BP diastolic 67–85
[2019-02-25] MEDS: oxyCODONE IR 5 MG TABLET PO PRN ×2 (04:43→12:36)
[2019-02-25] MEDS ORDERED: BARIUM SULFATE 60% 355 ML SUSP PO ONE (07:15)
[2019-02-25] MEDS ORDERED: BARIUM SULFATE 340 GM SUSPENSION. PO ONE (07:15)
[2019-02-25] MEDS ORDERED: SIMETHICONE/SOD BICARB/CITRIC ACID PACKET. PO ONE (07:15)
--- NOTE | 2019-02-25 07:23 | EKG ---
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
[2019-02-25] MEDS ORDERED: PANTOPRAZOLE 40 MG TABLET.DR. PO SCH (07:30)
[2019-02-25] MEDS: INSULIN LISPRO 300 UNITS/3 ML VIAL. SQ SCH ×6 (08:00→17:00)
--- NOTE | 2019-02-25 08:37 | PDOC ---
PULMONARY PROGRESS NOTES Subjective PT COUGH WITH EATING SMOKES CIGAR AND VAPES Vitals Vital Signs Date Time Temp Pulse Resp B/P (MAP) Pulse Ox O2 Delivery O2 Flow Rate FiO2 02/25/19 07:00 97.7 99 22 147/77 (100) 98 Nasal Cannula 4.0 97.7 ROS: No Nausea, No Chest Pain, No Abdominal Pain, No Increase Cough General: Alert Lungs: Crackles Cardiovascular: S1, S2 Abdomen: Soft, Non-tender, Other Neuro Exam: Alert, Oriented, No Focal Findings Extremities: Other (trace bilateral pretibial edema) Skin: Warm Labs Laboratory Tests Test 02/23/19 11:27 02/23/19 16:32 02/23/19 21:01 02/24/19 07:00 Glucose (Fingerstick) 212 mg/dL (70-99) 276 mg/dL (70-99) 346 mg/dL (70-99) 265 mg/dL (70-99) Test 02/24/19 11:33 02/24/19 11:45 02/24/19 16:26 02/24/19 20:37 Glucose (Fingerstick) 247 mg/dL (70-99) 293 mg/dL (70-99) 139 mg/dL (70-99) Procalcitonin < 0.10 ng/mL (0.00-0.10) Test 02/25/19 07:38 Glucose (Fingerstick) 266 mg/dL (70-99) Laboratory Tests Test 02/24/19 11:33 02/24/19 11:45 02/24/19 16:26 02/24/19 20:37 Glucose (Fingerstick) 247 mg/dL (70-99) 293 mg/dL (70-99) 139 mg/dL (70-99) Procalcitonin < 0.10 ng/mL (0.00-0.10) Test 02/25/19 07:38 Glucose (Fingerstick) 266 mg/dL (70-99) Medications Active Scripts Medications Dose Route/Sig Max Daily Dose Days Date Category Dose Instructions Symbicort 160-4.5 Mcg Inhaler (Budesonide/Formoterol Fumarate) 10.2 Gm Hfa.aer.ad 2 Puff IH BID 02/23/19 Reported Duloxetine Hcl 60 Mg Capsule.dr 60 Mg PO DAILY 02/23/19 Reported Atorvastatin Calcium 20 Mg Tablet 20 Mg PO HS 02/23/19 Reported One Daily Multivitamin (Multivitamin) 1 Each Tablet 1 Tab PO DAILY 30 02/23/19 Reported Cranberry (Cranberry Extract) 425 Mg Capsule 4,200 Mg PO BID 07/17/18 Reported Senna (Sennosides) 8.6 Mg Tablet 8.6 Mg PO HS 07/17/18 Reported Tylenol (Acetaminophen) 325 Mg Tablet 2 Tab PO PRN Q4HRS 07/17/18 Reported Tresiba Flextouch U-100 (Insulin Degludec) 100 Unit/1 Ml Insuln.pen 70 Unit SQ HS 07/17/18 Reported Tresiba (Insulin Degludec) 100 Unit/1 Ml Vial 75 Unit SQ DAILY07 07/17/18 Reported Gabapentin (Gabapentin) 300 Mg Capsule 600 Mg PO TID 07/17/18 Reported Duoneb 0.5-3(2.5) Mg/3 Ml (Albuterol/Ipratropium) 3 Ml Ampul.neb 3 Ml NEB Q6HRS 30 01/03/18 Rx Oxycodone Hcl Immed.release (Oxycodone Hcl) 10 Mg Tablet 1 Tab PO QID PRN 01/03/18 Rx Tamsulosin Hcl 0.4 Mg Cap.er.24h 1 Cap PO BID 01/03/18 Rx Aspirin 325 Mg Tablet 1 Tab PO DAILY 11/28/17 Reported Prilosec (Omeprazole) 40 Mg Capsule.dr 40 Mg PO DAILY 07/11/13 Reported MAY TAKE ANY TIME Impression . IMPRESSION: 1. Acute hypoxic respiratory failure, 2. Abnormal chest x-ray. See comments below. 3. Chronic obstructive pulmonary disease. 4. Coronary artery disease. 5. TOBACCO DEPENDENT 6 DYSPHAGIA COMMENT: I did review his chest x-ray. I agree that he has a vague right mid lung field infiltrate. It is compatible with either pneumonia or pulmonary edema. His history to me is more compatible with pulmonary edema, although I do not think that you can be certain. ESOPHAGRAM IMPRESSION: 1. Limited epiglottic inversion lead to prolonged retention of a barium pill. The pill was eventually aspirated then expectorated. This reproduced the patient's symptoms. Assessment by speech pathology is recommended. Endoscopy could assess for a cause of decreased epiglottic movement. Plan . SPEECH EVAL GI POSSIBLE EGD [facility] BD FOLLOW UP IN OFFICE ONCE D/C GERARD CHRISTIANSEN MD Feb 25, 2019 08:37
--- NOTE | 2019-02-25 08:44 | RAD ---
EXAM: SINGLE CONTRAST BARIUM ESOPHAGRAM. HISTORY: Dysphagia, choking with solids. COMPARISON: None. FINDINGS: Barium contrast material was administered orally and followed in its course through the pharynx, esophagus and gastroesophageal junction with fluoroscopy. Fluoroscopy time 3.2 minutes. 18 images were obtained. On initial swallows with thickened liquids, there was a small amount of laryngeal penetration, but no clear aspiration. This resulted in intense coughing. No clear pharyngeal lesions were seen. Later, a 12.5 mm barium pill was administered with thin contrast. This arrested at the epiglottis, and did not pass with multiple swallows. This reproduced the patient's symptoms. Coughing of initially freed the pill, which was then aspirated into the larynx above the cords. Coughing eventually freed the pill which was swallowed. The esophagus appears normal in morphology and mucosal pattern. Motility was normal. The gastroesophageal junction is in its expected position. It opened promptly. No reflux was observed currently. A left pacemaker and cholecystectomy clips are noted. IMPRESSION: 1. Limited epiglottic inversion lead to prolonged retention of a barium pill. The pill was eventually aspirated then expectorated. This reproduced the patient's symptoms. Assessment by speech pathology is recommended. Endoscopy could assess for a cause of decreased epiglottic movement. Electronically signed by: James Henderson MD (02/25/2019 8:41 AM) [facility]
[2019-02-25] MEDS: BUDESONIDE 0.5 MG/2 ML NEBU. NEB SCH ×2 (08:48→20:22)
[2019-02-25] MEDS: ALBUTEROL SULFATE 2.5 MG/3 ML NEBU. NEB SCH ×4 (08:48→20:22)
[2019-02-25] MEDS: LACTOBACILLUS RHAMNOSUS GG 1 CAPSULE. PO SCH ×2 (09:01→23:08)
[2019-02-25] MEDS: guaiFENesin ORAL 200 MG/10 ML LIQUID. PO PRN (09:01)
[2019-02-25] MEDS: TAMSULOSIN 0.4 MG CAP.ER.24H. PO SCH ×2 (09:01→23:08)
[2019-02-25] MEDS: methylPREDNISolone SOD SUCC PF 40 MG/ML VIAL. IV SCH ×2 (09:01→21:32)
[2019-02-25] MEDS: DOXYCYCLINE HYCLATE 100 MG TABLET PO SCH ×2 (09:01→23:08)
[2019-02-25] MEDS: ASPIRIN 325 MG TABLET PO SCH (09:01)
[2019-02-25] MEDS: PANTOPRAZOLE 40 MG TABLET.DR. PO SCH (09:01)
[2019-02-25] MEDS: GABAPENTIN 300 MG CAPSULE. PO SCH ×3 (09:01→23:08)
[2019-02-25] MEDS: DULoxetine HCL 30 MG CAPSULE.DR PO SCH (09:01)
[2019-02-25] MEDS: cefTRIAXone IV Push 1 GM VIAL. IVP SCH (09:01)
[2019-02-25] MEDS: INSULIN GLARGINE SYRINGE. SQ SCH ×2 (09:14→21:37)
--- NOTE | 2019-02-25 10:53 | PDOC ---
PROGRESS NOTES Chief Complaint Chief Complaint A/P Acute COPD exacerbation SIRS - sepsis given his pneumonia, given antibiotics RLL pneumonia CAD s/p prior PCI to RCA Acute hypoxic respiratory failure - wean O2 as tolerated. has never had home O2 Smoker - very heavy, offered nicotine patch. He has apparently been using smokeless tobacco in house, counseled against this. dysphagia, prob esophageal, complains of solid food problems only, consulted GI, discussed with speech History of Present Illness History of Present Illness Mr Whitt is a 63-year-old male w/ PMHx CAD s/p stenting, CHF, PPM in situ, Hyperlipidemia, COPD, prior CVA, Periperal neuropathy, GERD, Cirrhosis, Depression, BPH, DM2, ex-smoker who p/w shortness of breath and hypoxemia. Smoked 3ppd of cigarettes since age 8 until 6 months ago, but on further review he started smoking cigars and using chewing tobacco instead. Multiple hospitalizations for COPD exacerbations. He notes that he has been having more shortness of breath for the past 3 weeks. He has had orthopnea and paroxysmal nocturnal dyspnea. He also notes that he has been having chest tightness and chest pain with his shortness of breath. Overnight breathing improved somewhat, but still on O2, not great air movement, cough productive of brown sputum. No CP. He has apparently been using smokeless tobacco in house, counseled against this. Aspirated barium pill on esophagram, awaiting [employer] evaluation Vitals Vitals Vital Signs Date Time Temp Pulse Resp B/P (MAP) Pulse Ox O2 Delivery O2 Flow Rate FiO2 02/25/19 08:49 93 Nasal Cannula 4.0 02/25/19 07:00 97.7 99 22 147/77 (100) 97.7 Physical Exam General: Alert, Cooperative, mild distress Lungs: Other (he has equal, diminished breath sounds without wheezing. few bibasilar rales.) Abdomen: Normal bowel sounds, Soft Extremities: No clubbing, No edema, Normal pulses Skin: No rashes, No breakdown Labs LABS Laboratory Tests Test 02/24/19 11:33 02/24/19 11:45 02/24/19 16:26 02/24/19 20:37 Glucose (Fingerstick) 247 mg/dL (70-99) 293 mg/dL (70-99) 139 mg/dL (70-99) Procalcitonin < 0.10 ng/mL (0.00-0.10) Hepatitis A IgM Antibody Nonreactive (Nonreactive) Hepatitis B Surface Antigen Nonreactive (Nonreactive) Hepatitis B Core IgM Antibody Nonreactive (Nonreactive) Hepatitis C IgG Antibody Nonreactive (Nonreactive) Test 02/25/19 07:38 Glucose (Fingerstick) 266 mg/dL (70-99) Assessment and Plan Assessmemt and Plan Problems Medical Problems: (1) Acute respiratory distress Status: Acute (2) CAP (community acquired pneumonia) Status: Acute (3) COPD with acute bronchitis Status: Acute (4) Dyslipidemia Status: Chronic (5) Dysphagia Status: Acute (6) HTN (hypertension) Status: Chronic (7) Hypoxia Status: Acute (8) RLL pneumonia Status: Chronic Comment Review of Relevant I have reviewed the following items bud (where applicable) has been applied. Labs Laboratory Tests Test 02/23/19 11:27 02/23/19 16:32 02/23/19 21:01 02/24/19 07:00 Glucose (Fingerstick) 212 mg/dL (70-99) 276 mg/dL (70-99) 346 mg/dL (70-99) 265 mg/dL (70-99) Test 02/24/19 11:33 02/24/19 11:45 02/24/19 16:26 02/24/19 20:37 Glucose (Fingerstick) 247 mg/dL (70-99) 293 mg/dL (70-99) 139 mg/dL (70-99) Procalcitonin < 0.10 ng/mL (0.00-0.10) Hepatitis A IgM Antibody Nonreactive (Nonreactive) Hepatitis B Surface Antigen Nonreactive (Nonreactive) Hepatitis B Core IgM Antibody Nonreactive (Nonreactive) Hepatitis C IgG Antibody Nonreactive (Nonreactive) Test 02/25/19 07:38 Glucose (Fingerstick) 266 mg/dL (70-99) Laboratory Tests Test 02/24/19 11:33 02/24/19 11:45 02/24/19 16:26 02/24/19 20:37 Glucose (Fingerstick) 247 mg/dL (70-99) 293 mg/dL (70-99) 139 mg/dL (70-99) Procalcitonin < 0.10 ng/mL (0.00-0.10) Hepatitis A IgM Antibody Nonreactive (Nonreactive) Hepatitis B Surface Antigen Nonreactive (Nonreactive) Hepatitis B Core IgM Antibody Nonreactive (Nonreactive) Hepatitis C IgG Antibody Nonreactive (Nonreactive) Test 02/25/19 07:38 Glucose (Fingerstick) 266 mg/dL (70-99) Microbiology 02/23/19 Blood Culture - Preliminary, Resulted NO GROWTH AFTER 2 DAYS Medications Current Medications Albuterol/ Ipratropium (Duoneb) 3 ml 1X ONCE NEB Last administered on 02/23/19at 08:20; Start 02/23/19 at 08:30; Stop 02/23/19 at 08:31; Status DC Methylprednisolone Sodium Succinate (SOLU-Medrol 125MG VIAL) 125 mg 1X ONCE IV Last administered on 02/23/19at 08:35; Start 02/23/19 at 08:30; Stop 02/23/19 at 08:31; Status DC Sodium Chloride 1,000 ml @ 1,000 mls/hr 1X ONCE IV Last administered on 02/23/19at 09:28; Start 02/23/19 at 08:45; Stop 02/23/19 at 09:44; Status DC Ceftriaxone Sodium (Rocephin) 1 gm 1X ONCE IVP Last administered on 02/23/19at 09:28; Start 02/23/19 at 09:30; Stop 02/23/19 at 09:31; Status DC Vancomycin HCl 250 ml @ 250 mls/hr 1X ONCE IV ; Start 02/23/19 at 09:15; Stop 02/23/19 at 10:14; Status UNV Vancomycin HCl 2 gm/Sodium Chloride 500 ml @ 250 mls/hr 1X ONCE IV Last administered on 02/23/19at 09:28; Start 02/23/19 at 09:30; Stop 02/23/19 at 11:29; Status DC Fentanyl Citrate (Fentanyl 2ml Vial) 50 mcg 1X ONCE IVP Last administered on 02/23/19at 09:41; Start 02/23/19 at 10:00; Stop 02/23/19 at 10:01; Status DC Acetaminophen (Tylenol) 650 mg PRN Q4HRS PRN PO MILD PAIN / TEMP Last administered on 02/24/19 17:56; Start 02/23/19 at 11:45 Aspirin (Jorge Luis Aspirin) 325 mg DAILYWBKFT PO Last administered on 02/25/19at 09:01; Start 02/24/19 at 08:00 Atorvastatin Calcium (Lipitor) 20 mg HS PO Last administered on 02/24/19 20:31; Start 02/23/19 at 21:00 Gabapentin (Neurontin) 600 mg QID PO Last administered on 02/23/19 12:54; Start 02/23/19 at 13:00; Stop 02/23/19 at 17:14; Status DC Sennosides (Senna) 8.6 mg HS PO Last administered on 02/24/19 20:30; Start 02/23/19 at 21:00 Tamsulosin HCl (Flomax) 0.4 mg BID PO Last administered on 02/25/19 09:01; Start 02/23/19 at 21:00 Non-Formulary Medication (Budesonide/ Formoterol Fumarate (Symbicort 160-4.5 Mcg Inhaler)) 2 puff BID IH ; Start 02/23/19 at 21:00; Status UNV Duloxetine HCl (Cymbalta) 60 mg DAILY PO Last administered on 02/25/19 09:01; Start 02/23/19 at 13:00 Insulin Glargine (Lantus Syringe) 70 unit QHS SQ Last administered on 02/24/19 20:51; Start 02/23/19 at 21:00 Insulin Glargine (Lantus Syringe) 75 unit DAILY07 SQ Last administered on 02/25/19 09:14; Start 02/24/19 at 07:00 Pantoprazole Sodium (Protonix) 40 mg DAILYAC PO Last administered on 02/25/19 09:01; Start 02/24/19 at 07:30 Albuterol Sulfate (Ventolin Neb Soln) 2.5 mg PRN Q4HRS PRN NEB SHORTNESS OF BREATH; Start 02/23/19 at 12:00 Methylprednisolone Sodium Succinate (SOLU-Medrol 40MG VIAL) 40 mg Q12HR IV Last administered on 02/25/19 09:01; Start 02/23/19 at 21:00 Ceftriaxone Sodium (Rocephin) 1 gm Q24H IVP Last administered on 02/25/19 09:01; Start 02/24/19 at 09:00 Doxycycline Hyclate (Vibra-Tab) 100 mg BID PO Last administered on 02/25/19 09:01; Start 02/23/19 at 13:00 Budesonide (Pulmicort) 0.5 mg RTBID NEB Last administered on 02/25/19 08:48; Start 02/23/19 at 13:00 Albuterol Sulfate (Ventolin Neb Soln) 2.5 mg RTQID NEB Last administered on 02/25/19 08:48; Start 02/23/19 at 13:00 Gabapentin (Neurontin) 600 mg TID PO Last administered on 02/25/19 09:01; Start 02/23/19 at 21:00 Oxycodone HCl (Roxicodone) 10 mg PRN Q6HRS PRN PO MODERATE PAIN, SEVERE PAIN Last administered on 02/25/19 04:43; Start 02/23/19 at 18:15 Hydromorphone HCl (Dilaudid) 1 mg 1X ONCE IVP Last administered on 02/23/19 18:17; Start 02/23/19 at 18:15; Stop 02/23/19 at 18:16; Status DC Acetaminophen (Tylenol) 1,000 mg 1X ONCE PO Last administered on 02/23/19 18:16; Start 02/23/19 at 18:15; Stop 02/23/19 at 18:16; Status DC Guaifenesin (Robitussin) 200 mg PRN Q4HRS PRN PO COUGH Last administered on 02/25/19 09:01; Start 02/23/19 at 18:15 Insulin Human Lispro (HumaLOG) 0-7 UNITS TIDWMEALS SQ Last administered on 02/24/19 18:03; Start 02/23/19 at 21:30 Dextrose (Dextrose 50%-Water Syringe) 12.5 gm PRN Q15MIN PRN IV SEE COMMENTS; Start 02/23/19 at 21:30 Insulin Human Lispro (HumaLOG) 8 units TIDAC SQ Last administered on 02/25/19 09:15; Start 02/24/19 at 11:30 Pantoprazole Sodium (Protonix) 40 mg DAILYAC PO ; Start 02/25/19 at 07:30; Status UNV Lactobacillus Rhamnosus (Culturelle) 1 cap BID PO Last administered on 02/25/19 09:01; Start 02/24/19 at 21:00 Barium Sulfate (Liquid E-Z Paque) 355 ml 1X ONCE PO Last administered on 02/25/19at 08:20; Start 02/25/19 at 07:15; Stop 02/25/19 at 07:16; Status DC Barium Sulfate (E-Z-Hd) 340 gm 1X ONCE PO Last administered on 02/25/19at 08:20; Start 02/25/19 at 07:15; Stop 02/25/19 at 07:16; Status DC Simethicone/ Sodium Bicarb/ Citric Ac (E-Z-Gas) 1 packet 1X ONCE PO ; Start 02/25/19 at 07:15; Stop 02/25/19 at 07:16; Status DC Active Scripts Active Duoneb 0.5-3(2.5) Mg/3 Ml (Albuterol/Ipratropium) 3 Ml Ampul.neb 3 Ml NEB Q6HRS 30 Days Oxycodone Hcl Immed.release (Oxycodone Hcl) 10 Mg Tablet 1 Tab PO QID PRN Tamsulosin Hcl 0.4 Mg Cap.er.24h 1 Cap PO BID Reported Symbicort 160-4.5 Mcg Inhaler (Budesonide/Formoterol Fumarate) 10.2 Gm Hfa.aer.ad 2 Puff IH BID Duloxetine Hcl 60 Mg Capsule. 60 Mg PO DAILY Atorvastatin Calcium 20 Mg Tablet 20 Mg PO HS One Daily Multivitamin (Multivitamin) 1 Each Tablet 1 Tab PO DAILY 30 Days Cranberry (Cranberry Extract) 425 Mg Capsule 4,200 Mg PO BID Senna (Sennosides) 8.6 Mg Tablet 8.6 Mg PO HS Tylenol (Acetaminophen) 325 Mg Tablet 2 Tab PO PRN Q4HRS Tresiba Flextouch U-100 (Insulin Degludec) 100 Unit/1 Ml Insuln.pen 70 Unit SQ HS Tresiba (Insulin Degludec) 100 Unit/1 Ml Vial 75 Unit SQ DAILY07 Gabapentin (Gabapentin) 300 Mg Capsule 600 Mg PO TID Aspirin 325 Mg Tablet 1 Tab PO DAILY Prilosec (Omeprazole) 40 Mg Capsule.dr 40 Mg PO DAILY MAY TAKE ANY TIME Vitals/I & O Vital Sign - Last 24 Hours 02/24/19 02/24/19 02/24/19 02/24/19 11:03 14:13 14:23 15:23 Temp 98.0 98.0 Pulse 111 Resp 24 B/P (MAP) 171/77 (108) Pulse Ox 96 93 O2 Delivery Nasal Cannula Nasal Cannula Nasal Cannula Nasal Cannula O2 Flow Rate 3.0 4.0 4.0 4.0 02/24/19 02/24/19 02/24/19 02/24/19 15:33 18:29 19:22 20:30 Temp 97.9 97.9 Pulse 104 Resp 24 18 B/P (MAP) 143/73 (96) Pulse Ox 93 94 94 O2 Delivery Nasal Cannula Nasal Cannula Nasal Cannula Nasal Cannula O2 Flow Rate 3.0 4.0 4.0 4.0 02/24/19 02/24/19 02/24/19 02/24/19 20:35 20:36 21:30 22:13 Temp 97.7 97.7 Pulse 116 Resp 16 22 B/P (MAP) 151/77 (101) Pulse Ox 97 97 97 97 O2 Delivery Nasal Cannula Nasal Cannula Nasal Cannula Nasal Cannula O2 Flow Rate 3.0 3.0 4.0 4.0 02/25/19 02/25/19 02/25/19 02/25/19 03:01 04:43 05:43 07:00 Temp 97.9 97.7 97.9 97.7 Pulse 104 99 Resp 21 18 18 22 B/P (MAP) 142/77 (98) 147/77 (100) Pulse Ox 97 97 97 98 O2 Delivery Nasal Cannula Nasal Cannula Nasal Cannula Nasal Cannula O2 Flow Rate 4.0 4.0 4.0 4.0 02/25/19 02/25/19 08:00 08:49 Pulse Ox 93 O2 Delivery Nasal Cannula Nasal Cannula O2 Flow Rate 4.0 4.0 Intake and Output 02/24/19 02/24/19 02/25/19 15:00 23:00 07:00 Intake Total 480 ml 800 ml Output Total 1250 ml 450 ml 400 ml Balance -770 ml 350 ml -400 ml MARS SWANSON MD Feb 25, 2019 10:53
--- NOTE | 2019-02-25 13:22 | PDOC ---
G I PROGRESS NOTE Reason for Follow-up Dysphagia Subjective Coughing with meals persists Physical Exam Lungs decreased BS CV S1 S2 ABD +BS, soft, nontnder Review of Relevant I have reviewed the following items bud (where applicable) has been applied. Labs Laboratory Tests Test 02/23/19 16:32 02/23/19 21:01 02/24/19 07:00 02/24/19 11:33 Glucose (Fingerstick) 276 mg/dL (70-99) 346 mg/dL (70-99) 265 mg/dL (70-99) 247 mg/dL (70-99) Test 02/24/19 11:45 02/24/19 16:26 02/24/19 20:37 02/25/19 07:38 Procalcitonin < 0.10 ng/mL (0.00-0.10) Hepatitis A IgM Antibody Nonreactive (Nonreactive) Hepatitis B Surface Antigen Nonreactive (Nonreactive) Hepatitis B Core IgM Antibody Nonreactive (Nonreactive) Hepatitis C IgG Antibody Nonreactive (Nonreactive) Glucose (Fingerstick) 293 mg/dL (70-99) 139 mg/dL (70-99) 266 mg/dL (70-99) Test 02/25/19 12:01 Glucose (Fingerstick) 119 mg/dL (70-99) Laboratory Tests Test 02/24/19 16:26 02/24/19 20:37 02/25/19 07:38 02/25/19 12:01 Glucose (Fingerstick) 293 mg/dL (70-99) 139 mg/dL (70-99) 266 mg/dL (70-99) 119 mg/dL (70-99) Microbiology 02/23/19 Blood Culture - Preliminary, Resulted NO GROWTH AFTER 2 DAYS Medications Current Medications Albuterol/ Ipratropium (Duoneb) 3 ml 1X ONCE NEB Last administered on 02/23/19at 08:20; Start 02/23/19 at 08:30; Stop 02/23/19 at 08:31; Status DC Methylprednisolone Sodium Succinate (SOLU-Medrol 125MG VIAL) 125 mg 1X ONCE IV Last administered on 02/23/19at 08:35; Start 02/23/19 at 08:30; Stop 02/23/19 at 08:31; Status DC Sodium Chloride 1,000 ml @ 1,000 mls/hr 1X ONCE IV Last administered on 02/23/19 09:28; Start 02/23/19 at 08:45; Stop 02/23/19 at 09:44; Status DC Ceftriaxone Sodium (Rocephin) 1 gm 1X ONCE IVP Last administered on 02/23/19 09:28; Start 02/23/19 at 09:30; Stop 02/23/19 at 09:31; Status DC Vancomycin HCl 250 ml @ 250 mls/hr 1X ONCE IV ; Start 02/23/19 at 09:15; Stop 02/23/19 at 10:14; Status UNV Vancomycin HCl 2 gm/Sodium Chloride 500 ml @ 250 mls/hr 1X ONCE IV Last administered on 02/23/19 09:28; Start 02/23/19 at 09:30; Stop 02/23/19 at 11:29; Status DC Fentanyl Citrate (Fentanyl 2ml Vial) 50 mcg 1X ONCE IVP Last administered on 02/23/19 09:41; Start 02/23/19 at 10:00; Stop 02/23/19 at 10:01; Status DC Acetaminophen (Tylenol) 650 mg PRN Q4HRS PRN PO MILD PAIN / TEMP Last adminis tered on 02/24/19 17:56; Start 02/23/19 at 11:45 Aspirin (Jorge Luis Aspirin) 325 mg DAILYWBKFT PO Last administered on 02/25/19 0 9:01; Start 02/24/19 at 08:00 Atorvastatin Calcium (Lipitor) 20 mg HS PO Last administered on 02/24/19 20:31; Start 02/23/19 at 21:00 Gabapentin (Neurontin) 600 mg QID PO Last administered on 02/23/19 12:54; Start 02/23/19 at 13:00; Stop 02/23/19 at 17:14; Status DC Sennosides (Senna) 8.6 mg HS PO Last administered on 02/24/19 20:30; Start 02/23/19 at 21:00 Tamsulosin HCl (Flomax) 0.4 mg BID PO Last administered on 02/25/19 09:01; Start 02/23/19 at 21:00 Non-Formulary Medication (Budesonide/ Formoterol Fumarate (Symbicort 160-4.5 Mcg Inhaler)) 2 puff BID IH ; Start 02/23/19 at 21:00; Status UNV Duloxetine HCl (Cymbalta) 60 mg DAILY PO Last administered on 02/25/19 09:01; Start 02/23/19 at 13:00 Insulin Glargine (Lantus Syringe) 70 unit QHS SQ Last administered on 02/24/19 20:51; Start 02/23/19 at 21:00 Insulin Glargine (Lantus Syringe) 75 unit DAILY07 SQ Last administered on 02/25/19 09:14; Start 02/24/19 at 07:00 Pantoprazole Sodium (Protonix) 40 mg DAILYAC PO Last administered on 02/25/19 09:01; Start 02/24/19 at 07:30 Albuterol Sulfate (Ventolin Neb Soln) 2.5 mg PRN Q4HRS PRN NEB SHORTNESS OF BREATH; Start 02/23/19 at 12:00 Methylprednisolone Sodium Succinate (SOLU-Medrol 40MG VIAL) 40 mg Q12HR IV Last administered on 02/25/19 09:01; Start 02/23/19 at 21:00 Ceftriaxone Sodium (Rocephin) 1 gm Q24H IVP Last administered on 02/25/19 09:01; Start 02/24/19 at 09:00 Doxycycline Hyclate (Vibra-Tab) 100 mg BID PO Last administered on 02/25/19 09:01; Start 02/23/19 at 13:00 Budesonide (Pulmicort) 0.5 mg RTBID NEB Last administered on 02/25/19 08:48; Start 02/23/19 at 13:00 Albuterol Sulfate (Ventolin Neb Soln) 2.5 mg RTQID NEB Last administered on 02/25/19 11:25; Start 02/23/19 at 13:00 Gabapentin (Neurontin) 600 mg TID PO Last administered on 02/25/19 09:01; Start 02/23/19 at 21:00 Oxycodone HCl (Roxicodone) 10 mg PRN Q6HRS PRN PO MODERATE PAIN, SEVERE PAIN Last administered on 02/25/19 12:36; Start 02/23/19 at 18:15 Hydromorphone HCl (Dilaudid) 1 mg 1X ONCE IVP Last administered on 02/23/19 18:17; Start 02/23/19 at 18:15; Stop 02/23/19 at 18:16; Status DC Acetaminophen (Tylenol) 1,000 mg 1X ONCE PO Last administered on 02/23/19 18:16; Start 02/23/19 at 18:15; Stop 02/23/19 at 18:16; Status DC Guaifenesin (Robitussin) 200 mg PRN Q4HRS PRN PO COUGH Last administered on 02/25/19 09:01; Start 02/23/19 at 18:15 Insulin Human Lispro (HumaLOG) 0-7 UNITS TIDWMEALS SQ Last administered on 02/24/19 18:03; Start 02/23/19 at 21:30 Dextrose (Dextrose 50%-Water Syringe) 12.5 gm PRN Q15MIN PRN IV SEE COMMENTS; Start 02/23/19 at 21:30 Insulin Human Lispro (HumaLOG) 8 units TIDAC SQ Last administered on 02/25/19 09:15; Start 02/24/19 at 11:30 Pantoprazole Sodium (Protonix) 40 mg DAILYAC PO ; Start 02/25/19 at 07:30; Status UNV Lactobacillus Rhamnosus (Culturelle) 1 cap BID PO Last administered on 02/25/19 09:01; Start 02/24/19 at 21:00 Barium Sulfate (Liquid E-Z Paque) 355 ml 1X ONCE PO Last administered on 02/25/19 08:20; Start 02/25/19 at 07:15; Stop 02/25/19 at 07:16; Status DC Barium Sulfate (E-Z-Hd) 340 gm 1X ONCE PO Last administered on 02/25/19 08:20; Start 02/25/19 at 07:15; Stop 02/25/19 at 07:16; Status DC Simethicone/ Sodium Bicarb/ Citric Ac (E-Z-Gas) 1 packet 1X ONCE PO ; Start 02/25/19 at 07:15; Stop 02/25/19 at 07:16; Status DC Active Scripts Active Duoneb 0.5-3(2.5) Mg/3 Ml (Albuterol/Ipratropium) 3 Ml Ampul.neb 3 Ml NEB Q6HRS 30 Days Oxycodone Hcl Immed.release (Oxycodone Hcl) 10 Mg Tablet 1 Tab PO QID PRN Tamsulosin Hcl 0.4 Mg Cap.er.24h 1 Cap PO BID Reported Symbicort 160-4.5 Mcg Inhaler (Budesonide/Formoterol Fumarate) 10.2 Gm Hfa .aer.ad 2 Puff IH BID Duloxetine Hcl 60 Mg Capsule.dr 60 Mg PO DAILY Atorvastatin Calcium 20 Mg Tablet 20 Mg PO HS One Daily Multivitamin (Multivitamin) 1 Each Tablet 1 Tab PO DAILY 30 Days Cranberry (Cranberry Extract) 425 Mg Capsule 4,200 Mg PO BID Senna (Sennosides) 8.6 Mg Tablet 8.6 Mg PO HS Tylenol (Acetaminophen) 325 Mg Tablet 2 Tab PO PRN Q4HRS Tresiba Flextouch U-100 (Insulin Degludec) 100 Unit/1 Ml Insuln.pen 70 Unit SQ HS Tresiba (Insulin Degludec) 100 Unit/1 Ml Vial 75 Unit SQ DAILY07 Gabapentin (Gabapentin) 300 Mg Capsule 600 Mg PO TID Aspirin 325 Mg Tablet 1 Tab PO DAILY Prilosec (Omeprazole) 40 Mg Capsule.dr 40 Mg PO DAILY MAY TAKE ANY TIME Vitals/I & O Vital Sign - Last 24 Hours 02/24/19 02/24/19 02/24/19 02/24/19 14:13 14:23 15:23 15:33 Temp 98.0 98.0 Pulse 111 Resp 24 B/P (MAP) 171/77 (108) Pulse Ox 93 93 O2 Delivery Nasal Cannula Nasal Cannula Nasal Cannula Nasal Cannula O2 Flow Rate 4.0 4.0 4.0 3.0 02/24/19 02/24/19 02/24/19 02/24/19 18:29 19:22 20:30 20:35 Temp 97.9 97.9 Pulse 104 Resp 24 18 B/P (MAP) 143/73 (96) Pulse Ox 94 94 97 O2 Delivery Nasal Cannula Nasal Cannula Nasal Cannula Nasal Cannula O2 Flow Rate 4.0 4.0 4.0 3.0 02/24/19 02/24/19 02/24/19 02/25/19 20:36 21:30 22:13 03:01 Temp 97.7 97.9 97.7 97.9 Pulse 116 104 Resp 16 22 21 B/P (MAP) 151/77 (101) 142/77 (98) Pulse Ox 97 97 97 97 O2 Delivery Nasal Cannula Nasal Cannula Nasal Cannula Nasal Cannula O2 Flow Rate 3.0 4.0 4.0 4.0 02/25/19 02/25/19 02/25/19 02/25/19 04:43 05:43 07:00 08:00 Temp 97.7 97.7 Pulse 99 Resp 18 18 22 B/P (MAP) 147/77 (100) Pulse Ox 97 97 98 O2 Delivery Nasal Cannula Nasal Cannula Nasal Cannula Nasal Cannula O2 Flow Rate 4.0 4.0 4.0 4.0 02/25/19 02/25/19 02/25/19 08:49 11:00 11:26 Temp 97.6 97.6 Pulse 106 Resp 22 B/P (MAP) 138/73 (94) Pulse Ox 93 97 93 O2 Delivery Nasal Cannula Nasal Cannula Nasal Cannula O2 Flow Rate 4.0 4.0 4.0 Intake and Output 02/24/19 02/24/19 02/25/19 15:00 23:00 07:00 Intake Total 480 ml 800 ml Output Total 1250 ml 450 ml 400 ml Balance -770 ml 350 ml -400 ml Problem List Problems Medical Problems: (1) Acute respiratory distress Status: Acute (2) CAP (community acquired pneumonia) Status: Acute (3) COPD with acute bronchitis Status: Acute (4) Dyslipidemia Status: Chronic (5) Dysphagia Status: Acute (6) HTN (hypertension) Status: Chronic (7) Hypoxia Status: Acute (8) RLL pneumonia Status: Chronic Assessment Dysphagia- with aspiration on esophagram, likely oropharyngeal component, Plan speech path video swallow evaluation TONYA PERSON MD Feb 25, 2019 13:22
--- NOTE | 2019-02-25 13:41 | NUR ---
SS following for discharge planning. SS reviewed pt chart. Pt is from home with spouse and is currently requiring oxygen. SS will continue to follow for discharge planning.
[2019-02-25] MEDS ORDERED: LIDOCAINE 1% Multi-Dose 20 ML VIAL. ONE (14:47)
[2019-02-25] MEDS ORDERED: IODIXANOL 320 MG/ML 100 ML VIAL. ONE (15:03)
[2019-02-25] MEDS ORDERED: fentaNYL PF VIAL 100 MCG/2 ML VIAL ONE (15:29)
[2019-02-25] MEDS ORDERED: MIDAZOLAM HCL/PF 2 MG/2 ML VIAL. ONE (15:30)
[2019-02-25] MEDS ORDERED: fentaNYL PF VIAL 100 MCG/2 ML VIAL IV ONE (15:45)
[2019-02-25] MEDS ORDERED: MIDAZOLAM HCL/PF 2 MG/2 ML VIAL. IV ONE (15:45)
[2019-02-25] MEDS ORDERED: LIDOCAINE 1% Multi-Dose 20 ML VIAL. INJ ONE (15:45)
[2019-02-25] MEDS ORDERED: IODIXANOL 320 MG/ML 100 ML VIAL. IART ONE (15:45)
--- NOTE | 2019-02-25 16:34 | PDOC ---
MODERATE SEDATION ASSESSMENT RISKS/ALTERNATIVES Risks/Alternatives Risks and alternatives of this type of sedation and procedure discussed with: RISK/ALTERNATIVES: Patient H & P ON CHART H & P H & P on chart and reviewed for co-morbid conditions and appropriate labs. H&P ON CHART: Yes STATUS PREG STATUS ASSESSED: N/A MEDS/ALLERGIES REVIEWED Meds/Allergies Reviewed Medications and Allergies including time and route of recently administered narcotics and sedatives. MEDS/ALLERGIES REVIEWED: Yes ASA RATING ASA RATING: III AIRWAY ASSESSMENT Airway Assessment Airway patency, oral function limitations, presence of caps, crowns, dentures, partials, and ability to extend neck assessed. AIRWAY ASSESSMENT: Yes MALLAMPATI SCORE MALLAMPATI SCORE: II PRE-SEDATION ASSESSMENT PRE-SEDATION ASSESSMENT: Yes DEL STEPHENS MD Feb 25, 2019 16:34
[2019-02-25] MEDS ORDERED: 0.9 % SODIUM CHLORIDE 10 ML DISP.SYRIN. IV PRN (16:45)
--- NOTE | 2019-02-25 16:48 | CARD ---
MR#: [id number] Date of Study: 02/25/2019 Ordering Physician: DEL KRAUSE, Referring Physician: DEL KRAUSE, Tech: RT Harjinder (R) APPROVED REPORT Technologist: RT Harjinder (R) NABOR Nurse: Lorena Judge RN Procedure(s) performed: Right and left heart catheterization, selective coronary angiography FLUORO TIME: 5.6 MIN DOSE: 61 Gycm2 CONTRAST: 83 ml SEDATION TIME: 40 min Class IV INDICATION The indication(s) include : Unstable angina, dyspnea, pulmonary hypertension. CSHA Clinical Frailty Scale CS Clinical Frailty Scale: Moderately Frail Heart Failure Heart Failure: Yes If Yes, Newly Diagnosed: No If Yes, HF Type: Diastolic PROCEDURE NARRATIVE After explaining the risks, benefits and alternative options, informed consent was obtained from carlton ent. Patient was brought to the cardiac Bioinformatics Developer and his right groin was prepped and draped in the us ual fashion. 20 mL of 2% lidocaine was infiltrated into the skin and subcutaneous tissues for local a nesthesia. Arterial and venous accesses were obtained in the right common femoral artery and vein res pectively and 6 and 8 [place] sheaths inserted. A 7.5 [place] catheter was then advanced unde r fluoroscopy guidance and intracardiac pressures, oxygen saturations were measured. Cardiac output w as measured using Letty method. Subsequently, 6 [place] JL4 and 6 [place] JR4 catheters placed to perfor m selective angiography of the left and right coronary arteries. LVEDP and transaortic gradients sujatha asured. Left ventriculography was not performed due to elevated LVEDP. Patient part of the procedure well. Hemostasis was achieved using Angio-Seal and manual compression. There were no immediate compli cations. FINDINGS A. RIGHT HEART CATHETERIZATION 1. Intracardiac pressures: Mean right atrial pressure 21 mmHg, right ventricle pressure 72/16 mmHg, pulmonary artery pressure 70/39 mmHg, mean PA pressure 56 mmHg and mean pulmonary capillary wedge pr essure 39 mmHg. This is consistent with moderate pulmonary hypertension and elevated left-sided filli ng pressures consistent with congestive heart failure, probably acute on chronic combined diastolic a nd systolic (EF 45% in past). 2. Oxygen saturations: Right atrium 61.3%, pulmonary artery 60.7% and femoral arterial sheath 94.4% . No evidence of intracardiac shunt. 3. Cardiac output by Letty method 4.56 L/m. B. LEFT HEART CATHETERIZATION 1. Hemodynamics: Elevated left ventricular end-diastolic pressure of 44 mmHg. No pullback gradient across the aortic valve. 2. Coronary angiography: a. The left main coronary artery arose from the left sinus of Valsalva, gave rise to the left anteri or descending and left circumflex arteries and did not show any significant stenosis. b. The left anterior descending artery did not show any significant stenosis. c. The Left circumflex artery was a large and dominant vessel that showed calcified 40% stenosis in the proximal segment and 30% stenosis in the midsegment. d. The right coronary artery was a nondominant vessel that showed patent previously placed stent in the midsegment. Conclusion 1. Nonobstructive coronary artery disease involving left circumflex artery with patent previously aubree mehul stent in the nondominant right coronary artery 2. Moderate pulmonary hypertension with mean PA pressure 56 mmHg. Elevated left-sided filling pressur es as evidenced by LVEDP 44 mmHg and mean pulmonary capillary wedge pressure 39 mmHg, probably second karrie to acute on chronic combined diastolic and systolic heart failure. 3. No evidence of intracardiac shunt Recommendations Optimization of medical therapy Signed by : Del Krause, Electronically Approved : 02/25/2019 16:48:12
[2019-02-25] MEDS: fentaNYL PF VIAL 100 MCG/2 ML VIAL IVP PRN ×3 (17:50→23:15)
[2019-02-25] MEDS: SENNOSIDES 8.6 MG TABLET PO SCH (23:08)
[2019-02-25] MEDS: ATORVASTATIN CALCIUM 20 MG TABLET PO SCH (23:08)
[2019-02-26 03:05] VITALS: BP 123/73
[2019-02-26 07:00] VITALS: BP 139/81
[2019-02-26] MEDS: INSULIN LISPRO 300 UNITS/3 ML VIAL. SQ SCH ×6 (07:30→17:00)
[2019-02-26] MEDS: ALBUTEROL SULFATE 2.5 MG/3 ML NEBU. NEB SCH ×4 (07:51→20:22)
[2019-02-26] MEDS: DOXYCYCLINE HYCLATE 100 MG TABLET PO SCH ×2 (08:40→20:53)
[2019-02-26] MEDS: DULoxetine HCL 30 MG CAPSULE.DR PO SCH (08:40)
[2019-02-26] MEDS: GABAPENTIN 300 MG CAPSULE. PO SCH ×3 (08:40→20:54)
[2019-02-26] MEDS: ASPIRIN 325 MG TABLET PO SCH (08:41)
[2019-02-26] MEDS: TAMSULOSIN 0.4 MG CAP.ER.24H. PO SCH ×2 (08:41→20:54)
[2019-02-26] MEDS: LACTOBACILLUS RHAMNOSUS GG 1 CAPSULE. PO SCH ×2 (08:41→20:54)
[2019-02-26] MEDS: PANTOPRAZOLE 40 MG TABLET.DR. PO SCH (08:41)
[2019-02-26] MEDS: methylPREDNISolone SOD SUCC PF 40 MG/ML VIAL. IV SCH ×2 (08:47→20:56)
[2019-02-26] MEDS: cefTRIAXone IV Push 1 GM VIAL. IVP SCH (08:47)
[2019-02-26] MEDS: oxyCODONE IR 5 MG TABLET PO PRN ×3 (08:53→20:56)
[2019-02-26] MEDS: INSULIN GLARGINE SYRINGE. SQ SCH ×2 (09:13→21:06)
[2019-02-26] MEDS ORDERED: BARIUM SULFATE 40% (APPLE) 148 GM PWD. PO ONE (10:15)
[2019-02-26 11:00] VITALS: BP 159/93
[2019-02-26] MEDS: BUDESONIDE 0.5 MG/2 ML NEBU. NEB SCH ×2 (11:45→20:22)
--- NOTE | 2019-02-26 11:59 | PDOC ---
Objective: Vital Signs: Vital Signs Date Time Temp Pulse Resp B/P (MAP) Pulse Ox O2 Delivery O2 Flow Rate FiO2 02/26/19 11:45 94 Nasal Cannula 4.0 02/26/19 07:00 96.3 96 22 139/81 (100) 96.3 Labs: Laboratory Tests Test 02/25/19 12:01 02/25/19 18:27 02/25/19 20:56 02/26/19 07:42 Glucose (Fingerstick) 119 mg/dL (70-99) 74 mg/dL (70-99) 200 mg/dL (70-99) 107 mg/dL (70-99) Imaging: Esophagram IMPRESSION: 1. Limited epiglottic inversion lead to prolonged retention of a barium pill. The pill was eventually aspirated then expectorated. This reproduced the patient's symptoms. Assessment by speech pathology is recommended. Endoscopy could assess for a cause of decreased epiglottic movement. Cardiac cath Conclusion 1. Nonobstructive coronary artery disease involving left circumflex artery with patent previously placed stent in the nondominant right coronary artery 2. Moderate pulmonary hypertension with mean PA pressure 56 mmHg. Elevated left- sided filling pressures as evidenced by LVEDP 44 mmHg and mean pulmonary capillary wedge pressure 39 mmHg, probably secondary to acute on chronic combined diastolic and systolic heart failure. 3. No evidence of intracardiac shunt Recommendations Optimization of medical therapy PE: out of room A/P: COPD, CHF Dysphagia Abnormal barium swallow - aspiration, decreased epiglottic movement GERD on PPI -- [facility] YONATHAN WU Feb 26, 2019 11:59
--- NOTE | 2019-02-26 13:06 | RAD ---
EXAM: Modified barium swallow. HISTORY: Dysphagia. Aspiration. FINDINGS: Barium contrast material was administered orally and multiple consistencies under the direction of speech pathology, and followed in its course during swallowing with video fluoroscopy. A fluoroscopic image and multiple videofluoroscopic clips were obtained. Fluoroscopy time 5 minutes. The radiologist was present for the entire imaging procedure. There was limited epiglottic inversion. This led to retention of material in the vallecula with all consistencies, worse with thicker consistencies. Swallowing with head turned to the left improved the amount of residue. There was laryngeal penetration with multiple consistencies, sometimes resulting in cough. There was no gross aspiration. IMPRESSION: 1. Correlate for clinical causes of limited epiglottic movement. 2. Laryngeal penetration without gross aspiration. Refer to the full report by speech pathology for more detail. Electronically signed by: James Henderson MD (02/26/2019 1:03 PM) [facility]
--- NOTE | 2019-02-26 13:06 | PDOC ---
WAI,EMILY TRISTAN 02/26/19 1306: CARDIO Progress Notes Date and Time Date of Service 02/26/19 Time of Evaluation 1300 Subjective Subjective: No Chest Pain, Other (breathing slightly improved) Vitals Vitals Vital Signs Date Time Temp Pulse Resp B/P (MAP) Pulse Ox O2 Delivery O2 Flow Rate FiO2 02/26/19 11:45 94 Nasal Cannula 4.0 02/26/19 11:00 97.7 101 22 159/93 (115) 97.7 Weight Weight [ ] Input and Output Intake and Output Intake and Output 02/26/19 07:00 Intake Total 500 ml Output Total 925 ml Balance -425 ml Intake Oral 500 ml Output Urine Total 925 ml Laboratory Labs Laboratory Tests Test 02/25/19 18:27 02/25/19 20:56 02/26/19 07:42 02/26/19 12:02 Glucose (Fingerstick) 74 mg/dL (70-99) 200 mg/dL (70-99) 107 mg/dL (70-99) 172 mg/dL (70-99) Microbiology Micro Microbiology 02/23/19 Blood Culture - Preliminary, Resulted NO GROWTH AFTER 3 DAYS Physical Exam HEENT: Neck Supple W Full Motion Chest: Symmetric LUNGS: Other (crackles bilaterally ) Heart: S1S2, RRR Abdomen: Soft N/T Extremities: No Edema Neurology: alert, oriented, follow commands Assessment Assessment 1. Acute on chronic respiratory failure; multifactorial with a/c CHF, COPD, and poss PNA 2. CAD s/p PCI to the RCA; cath revealed non-obstructive CAD involving the LCx. Previously placed stent in the RCA was patent 3. Acute on chronic combined diastolic, diastolic HF; RHC with elevated pressures. Previous echo with LVEF 40-45% 4. Hypertension; controlled 5. Hyperlipidemia 6. Severe COPD with ongoing tobaccoism; discussed/encouraged cessation. Is interested in quitting 7. Diabetes, II 8. Carotid hypersensitivity s/p PPM 9. Dysphagia; video swallow today Recommendations BMP, Mg Duiresis Secondary prevention measures Supportive care DEL STEPHENS MD 02/26/191945: CARDIO Progress Notes Assessment Assessment Patient seen and examined. Agree with FOOD BEVERAGE MANAGER's assessment and plan Cardiac cath results noted above Continue gentle diuresis for elevated filling pressures CAD stable RED CARRENO APRN Feb 26, 2019 13:06 DEL STEPHENS MD Feb 26, 2019 19:46
--- NOTE | 2019-02-26 14:20 | PDOC ---
[employer] PROGRESS NOTE Chief Complaint Chief Complaint Acute COPD exacerbation SIRS - sepsis given his pneumonia, given antibiotics RLL pneumonia CAD s/p prior PCI to RCA Acute hypoxic respiratory failure - wean O2 as tolerated. has never had home O2 Smoker - very heavy, offered nicotine patch. He has apparently been using smokeless tobacco in house dysphagia, prob esophageal, complains of solid food problems only, consulted GI, discussed with speech History of Present Illness History of Present Illness 02/26/19 Pt seen and examined. Pt sitting propped up in bed and conversant and relaxed, in no acute distress. Reports improvement in breathing. Will have video swallow study today. Had some aspiration on supine esophogram previously. Discussed with family members and nurse and speech therapist. 02/25/19 Mr Whitt is a 63-year-old male w/ PMHx CAD s/p stenting, CHF, PPM in situ, Hyperlipidemia, COPD, prior CVA, Periperal neuropathy, GERD, Cirrhosis, Depression, BPH, DM2, ex-smoker who p/w shortness of breath and hypoxemia. Smoked 3ppd of cigarettes since age 8 until 6 months ago, but on further review he started smoking cigars and using chewing tobacco instead. Multiple hospitalizations for COPD exacerbations. He notes that he has been having more shortness of breath for the past 3 weeks. He has had orthopnea and paroxysmal nocturnal dyspnea. He also notes that he has been having chest tightness and chest pain with his shortness of breath. Overnight breathing improved somewhat, but still on O2, not great air movement, cough productive of brown sputum. No CP. He has apparently been using smokeless tobacco in house, counseled against this. Aspirated barium pill on esophagram, awaiting LICENSED MORTGAGE LOAN OFFICER evaluation Vitals/I&O Vitals/I&O: Vital Signs Date Time Temp Pulse Resp B/P (MAP) Pulse Ox O2 Delivery O2 Flow Rate FiO2 02/26/19 11:45 94 Nasal Cannula 4.0 02/26/19 11:00 97.7 101 22 159/93 (115) 97.7 I & O 02/25/19 02/25/19 02/26/19 15:00 23:00 07:00 Intake Total 500 ml Output Total 250 ml 475 ml 200 ml Balance -250 ml -475 ml 300 ml Physical Exam General: Alert, Cooperative, No acute distress Heart: Regular rate, Normal S1, Normal S2 Lungs: Crackles Abdomen: Normal bowel sounds, Soft Extremities: No clubbing, No edema, Normal pulses Skin: No rashes, No breakdown Labs Labs: Laboratory Tests Test 02/25/19 18:27 02/25/19 20:56 02/26/19 07:42 02/26/19 12:02 Glucose (Fingerstick) 74 mg/dL (70-99) 200 mg/dL (70-99) 107 mg/dL (70-99) 172 mg/dL (70-99) Review of Systems Review of Systems: shortness of breath improved. Yes dysphagia Assessment and Plan Assessmemt and Plan Problems Medical Problems: (1) Acute respiratory distress Status: Acute (2) CAP (community acquired pneumonia) Status: Acute (3) COPD with acute bronchitis Status: Acute (4) Dyslipidemia Status: Chronic (5) Dysphagia Status: Acute (6) HTN (hypertension) Status: Chronic (7) Hypoxia Status: Acute (8) RLL pneumonia Status: Chronic RLL pneumonia COPD exacerbation Sepsis dysphagia Hx of CHF Hx of CAD with prior stent Hx of CVA Hx of cirrhosis Cardiac monitoring on O2 per nasal canula PRN duonebs Antibiotics Discharge when ok with pulm, GI, cardiology PT/OT DVT ppx home meds will get video swallow study today labs Comment Review of Relevant I have reviewed the following items bud (where applicable) has been applied. Medications: Current Medications Medications (Trade) Dose Ordered Sig/Aretha Route PRN Reason Start Time Stop Time Status Last Admin Dose Admin Heparin Sodium/ Sodium Chloride (HEPARIN for ARTERIAL LINE FLUSH) 1,000 unit 1X ONCE IART 02/25/19 15:45 02/25/19 15:46 DC 02/25/19 15:45 Heparin Sodium/ Sodium Chloride (HEPARIN for ARTERIAL LINE FLUSH) 1,000 unit 1X ONCE IART 02/25/19 15:45 02/25/19 15:46 DC 02/25/19 15:45 Midazolam HCl (Versed) 2 mg 1X ONCE IV 02/25/19 15:45 02/25/19 15:46 DC 02/25/19 15:45 Fentanyl Citrate (Fentanyl 2ml Vial) 100 mcg 1X ONCE IV 02/25/19 15:45 02/25/19 15:46 DC 02/25/19 15:45 Iodixanol (Visipaque 320) 100 ml 1X ONCE IART 02/25/19 15:45 02/25/19 15:46 DC 02/25/19 15:45 Lidocaine HCl (Lidocaine 1% 20ml Vial) 20 ml 1X ONCE INJ 02/25/19 15:45 02/25/19 15:46 DC 02/25/19 15:45 Fentanyl Citrate (Fentanyl 2ml Vial) 50 mcg PRN Q2HR PRN IVP PAIN 02/25/19 17:45 02/25/19 23:15 Barium Sulfate (Varibar Thin Liquid Apple) 148 gm 1X ONCE PO 02/26/19 10:15 02/26/19 10:16 DC 02/26/19 10:15 NITESH BOCANEGRA III DO Feb 26, 2019 14:20
[2019-02-26 15:00] VITALS: BP 134/81
[2019-02-26] MEDS ORDERED: FUROSEMIDE 40 MG/4 ML VIAL. IVP ONE (15:15)
--- NOTE | 2019-02-26 15:32 | PDOC ---
PULMONARY PROGRESS NOTES Subjective PT FEELS BETTER LESS SOA Vitals Vital Signs Date Time Temp Pulse Resp B/P (MAP) Pulse Ox O2 Delivery O2 Flow Rate FiO2 02/26/19 15:09 Nasal Cannula 4.0 02/26/19 15:00 97.7 100 22 134/81 (98) 95 97.7 ROS: No Nausea, No Chest Pain, No Abdominal Pain, No Increase Cough General: Alert Lungs: Crackles Cardiovascular: S1, S2 Abdomen: Soft, Non-tender, Other Neuro Exam: Alert, Oriented, No Focal Findings Extremities: Other (trace bilateral pretibial edema) Skin: Warm Labs Laboratory Tests Test 02/24/19 16:26 02/24/19 20:37 02/25/19 07:38 02/25/19 12:01 Glucose (Fingerstick) 293 mg/dL (70-99) 139 mg/dL (70-99) 266 mg/dL (70-99) 119 mg/dL (70-99) Test 02/25/19 18:27 02/25/19 20:56 02/26/19 07:42 02/26/19 12:02 Glucose (Fingerstick) 74 mg/dL (70-99) 200 mg/dL (70-99) 107 mg/dL (70-99) 172 mg/dL (70-99) Laboratory Tests Test 02/25/19 18:27 02/25/19 20:56 02/26/19 07:42 02/26/19 12:02 Glucose (Fingerstick) 74 mg/dL (70-99) 200 mg/dL (70-99) 107 mg/dL (70-99) 172 mg/dL (70-99) Medications Active Scripts Medications Dose Route/Sig Max Daily Dose Days Date Category Dose Instructions Symbicort 160-4.5 Mcg Inhaler (Budesonide/Formoterol Fumarate) 10.2 Gm Hfa.aer.ad 2 Puff IH BID 02/23/19 Reported Duloxetine Hcl 60 Mg Capsule.dr 60 Mg PO DAILY 02/23/19 Reported Atorvastatin Calcium 20 Mg Tablet 20 Mg PO HS 02/23/19 Reported One Daily Multivitamin (Multivitamin) 1 Each Tablet 1 Tab PO DAILY 30 02/23/19 Reported Cranberry (Cranberry Extract) 425 Mg Capsule 4,200 Mg PO BID 07/17/18 Reported Senna (Sennosides) 8.6 Mg Tablet 8.6 Mg PO HS 07/17/18 Reported Tylenol (Acetaminophen) 325 Mg Tablet 2 Tab PO PRN Q4HRS 07/17/18 Reported Tresiba Flextouch U-100 (Insulin Degludec) 100 Unit/1 Ml Insuln.pen 70 Unit SQ HS 07/17/18 Reported Tresiba (Insulin Degludec) 100 Unit/1 Ml Vial 75 Unit SQ DAILY07 07/17/18 Reported Gabapentin (Gabapentin) 300 Mg Capsule 600 Mg PO TID 07/17/18 Reported Duoneb 0.5-3(2.5) Mg/3 Ml (Albuterol/Ipratropium) 3 Ml Ampul.neb 3 Ml NEB Q6HRS 30 01/03/18 Rx Oxycodone Hcl Immed.release (Oxycodone Hcl) 10 Mg Tablet 1 Tab PO QID PRN 01/03/18 Rx Tamsulosin Hcl 0.4 Mg Cap.er.24h 1 Cap PO BID 01/03/18 Rx Aspirin 325 Mg Tablet 1 Tab PO DAILY 11/28/17 Reported Prilosec (Omeprazole) 40 Mg Capsule.dr 40 Mg PO DAILY 07/11/13 Reported MAY TAKE ANY TIME Impression . IMPRESSION: 1. Acute hypoxic respiratory failure, 2. Abnormal chest x-ray. See comments below. 3. Chronic obstructive pulmonary disease. 4. Coronary artery disease. 5. TOBACCO DEPENDENT 6 DYSPHAGIA COMMENT: I did review his chest x-ray. I agree that he has a vague right mid lung field infiltrate. It is compatible with either pneumonia or pulmonary edema. His history to me is more compatible with pulmonary edema, although I do not think that you can be certain. ESOPHAGRAM IMPRESSION: 1. Limited epiglottic inversion lead to prolonged retention of a barium pill. The pill was eventually aspirated then expectorated. This reproduced the patient's symptoms. Assessment by speech pathology is recommended. Endoscopy could assess for a cause of decreased epiglottic movement. Plan . FOLLOW SPEECH REC OUT PT ENT EVALUATION CHAUNCEY BD FOLLOW UP IN OFFICE ONCE D/C GERARD CHRISTIANSEN MD Feb 26, 2019 15:32
[2019-02-26 16:55] LABS: CALCIUM 8.8 mg/dL (8.5-10.1); CREATININE 1.1 mg/dL (0.7-1.3); GFR 67.2; POTASSIUM 3.8 mmol/L (3.5-5.1)
[2019-02-26 19:57] VITALS: BP 116/74
[2019-02-26] MEDS: SENNOSIDES 8.6 MG TABLET PO SCH (20:53)
[2019-02-26] MEDS: ATORVASTATIN CALCIUM 20 MG TABLET PO SCH (20:54)
[2019-02-26 23:07] VITALS: BP 130/76
[2019-02-27 03:13] VITALS: BP 140/75
[2019-02-27 05:11] LABS: BASO % 0 % (0-3); EOS % 0 % (0-3); HEMATOCRIT 39.6 % (39.0-53.0); HEMOGLOBIN 13.2 g/dL (13.0-17.5); LYMPH # 0.5 x10^3/uL (1.0-4.8); LYMPH % 5 % (24-48); MEAN CORPUSCULAR HEMOGLOBIN 30 pg (25-35); MEAN CORPUSCULAR HGB CONC 34 g/dL (31-37); MEAN CORPUSCULAR VOLUME 91 fL (79-100); MONO # 0.6 x10^3/uL (0.0-1.1); MONO % 6 % (0-9); NEUT # 9.4 x10^3/uL (1.8-7.7); NEUT % 89 % (31-73); PLATELET COUNT 158 x10^3/uL (140-400); RED BLOOD COUNT 4.37 x10^6/uL (4.30-5.70); RED CELL DISTRIBUTION WIDTH 14.6 % (11.5-14.5); WHITE BLOOD COUNT 10.5 x10^3/uL (4.0-11.0)
[2019-02-27 06:07] LABS: ALBUMIN 3.2 g/dL (3.4-5.0); CALCIUM 8.9 mg/dL (8.5-10.1); TOTAL BILIRUBIN 0.7 mg/dL (0.2-1.0); TOTAL PROTEIN 6.5 g/dL (6.4-8.2)
[2019-02-27 06:48] LABS: POTASSIUM 4.2 mmol/L (3.5-5.1)
[2019-02-27 07:22] VITALS: BP 132/81
[2019-02-27] MEDS: ALBUTEROL SULFATE 2.5 MG/3 ML NEBU. NEB SCH ×3 (08:01→16:17)
[2019-02-27] MEDS: BUDESONIDE 0.5 MG/2 ML NEBU. NEB SCH (08:01)
[2019-02-27] MEDS: PANTOPRAZOLE 40 MG TABLET.DR. PO SCH (08:12)
[2019-02-27] MEDS: INSULIN GLARGINE SYRINGE. SQ SCH (08:17)
[2019-02-27 08:32] LABS: % BANDS 2 % (0-9); % MONOS 8 % (0-10)
[2019-02-27 08:33] LABS: % SEGS 82 % (35-66); PLT ESTIMATE ADEQUATE (ADEQUATE)
[2019-02-27 08:34] LABS: % ATYL 1 % (0-0); % LYMPHS 7 % (24-48); OVALOCYTES FEW; TEAR DROP CELLS OCC
--- NOTE | 2019-02-27 08:54 | CARD ---
MR#: [id number] Date of Study: 02/27/2019 Ordering Physician: RED CARRENO, Referring Physician: RED CARRENO, Tech: Jennifer Cardoza RDCS APPROVED REPORT EXAM: Two-dimensional and M-mode echocardiogram with Doppler and color Doppler. Other Information Quality : AverageHR: 91bpm Rhythm : NSR INDICATION Congestive Heart Failure 2D DIMENSIONS RVDd3.6 (2.9-3.5cm)Left Atrium(2D)4.5 (1.6-4.0cm) IVSd1.0 (0.7-1.1cm)Aortic Root(2D)2.9 (2.0-3.7cm) LVDd6.0 (3.9-5.9cm)LVOT Diameter2.2 (1.8-2.4cm) PWd1.0 (0.7-1.1cm)LVDs5.3 (2.5-4.0cm) FS (%) 12.0 %SV45.8 ml LVEF(%)25.4 (>50%) M-Mode DIMENSIONS Left Atrium(MM)4.96 (2.5-4.0cm)Aortic Root3.38 (2.2-3.7cm) Aortic Valve AoV Peak Kenan.136.2cm/sAoV VTI26.2cm AO Peak GR.7.4mmHgLVOT Peak Kenan.81.9cm/s AO Mean GR.4mmHgAVA (VMAX)2.22cm2 SAL (VTI)2.20cm2 Mitral Valve MV E Qcebtokz11.8cm/sMV DECEL [id number] MV A Bfljchxh75.2cm/sE/A Ratio4.7 Pulmonary Valve PV Peak Iqgeeydp53.3cm/s Tricuspid Valve TR P. Ymccfknv290ve/sRAP [id number] TR Peak Gr.[id number] LEFT VENTRICLE The Left Ventricle is mildly dilated. There is normal left ventricular wall thickness. The ejection f raction is severely impaired. The Ejection Fraction is 20-25%. There is global hypokinesis of the lef t ventricle. Tissue Doppler imaging reveals moderate left ventricular diastolic dysfunction. RIGHT VENTRICLE The right ventricle is mildly dilated. There is normal right ventricular wall thickness. RV Systolic function is mildly reduced. Pacer lead noted in RV/RA. ATRIA The left atrium is mildly dilated. The right atrium is mildly dilated. The interatrial septum is inta ct with no evidence for an atrial septal defect or patent foramen ovale as noted on 2-D or Doppler im aging. AORTIC VALVE The aortic valve is mildly calcified. The aortic valve is trileaflet. Doppler and Color Flow revealed no significant aortic regurgitation. There is no significant aortic valvular stenosis. MITRAL VALVE Mitral annular calcification is mild. There is no evidence of mitral valve prolapse. There is no mitr al valve stenosis. Doppler and Color-flow revealed mild mitral regurgitation. TRICUSPID VALVE The tricuspid valve is normal in structure and function. Doppler and Color Flow revealed mild tricusp id regurgitation. There is moderate pulmonary hypertension. The PA pressure was estimated at 58 mmHg. There is no tricuspid valve prolapse or vegetation. There is no tricuspid valve stenosis. PULMONIC VALVE Doppler and Color Flow revealed mild pulmonic valvular regurgitation. There is no pulmonic valvular s tenosis. GREAT VESSELS The aortic root is normal in size. The ascending aorta is normal in size. The IVC is dilated and misty apses >50% with inspiration. PERICARDIAL EFFUSION There is no evidence of significant pericardial effusion. Critical Notification Critical Value: No <Conclusion> The ejection fraction is severely impaired. The Ejection Fraction is 20-25%. There is global hypokinesis of the left ventricle. Pacer lead noted in RV/RA. Doppler and Color Flow revealed mild tricuspid regurgitation. There is moderate pulmonary hypertensio n. The PA pressure was estimated at 58 mmHg. Signed by : Dheeraj Morrissey, Electronically Approved : 02/27/2019 08:53:42
--- NOTE | 2019-02-27 08:57 | PDOC ---
PULMONARY PROGRESS NOTES Subjective PT FEELS BETTER LESS SOA Vitals Vital Signs Date Time Temp Pulse Resp B/P (MAP) Pulse Ox O2 Delivery O2 Flow Rate FiO2 02/27/19 07:22 97.4 97 20 132/81 (98) 95 Nasal Cannula 1.0 97.4 ROS: No Nausea, No Chest Pain, No Abdominal Pain, No Increase Cough General: Alert Lungs: Crackles Cardiovascular: S1, S2 Abdomen: Soft, Non-tender, Other Neuro Exam: Alert, Oriented, No Focal Findings Extremities: Other (trace bilateral pretibial edema) Skin: Warm Labs Laboratory Tests Test 02/25/19 12:01 02/25/19 18:27 02/25/19 20:56 02/26/19 07:42 Glucose (Fingerstick) 119 mg/dL (70-99) 74 mg/dL (70-99) 200 mg/dL (70-99) 107 mg/dL (70-99) Test 02/26/19 12:02 02/26/19 16:30 02/26/19 17:01 02/26/19 20:37 Glucose (Fingerstick) 172 mg/dL (70-99) 116 mg/dL (70-99) 166 mg/dL (70-99) Sodium Level 143 mmol/L (136-145) Potassium Level 3.8 mmol/L (3.5-5.1) Chloride Level 104 mmol/L (98-107) Carbon Dioxide Level 29 mmol/L (21-32) Anion Gap 10 (6-14) Blood Urea Nitrogen 27 mg/dL (8-26) Creatinine 1.1 mg/dL (0.7-1.3) Estimated GFR (Cockcroft-Gault) 67.2 Glucose Level 138 mg/dL (70-99) Calcium Level 8.8 mg/dL (8.5-10.1) Magnesium Level 2.0 mg/dL (1.8-2.4) Test 02/27/19 04:50 02/27/19 07:48 White Blood Count 10.5 x10^3/uL (4.0-11.0) Red Blood Count 4.37 x10^6/uL (4.30-5.70) Hemoglobin 13.2 g/dL (13.0-17.5) Hematocrit 39.6 % (39.0-53.0) Mean Corpuscular Volume 91 fL (79-100) Mean Corpuscular Hemoglobin 30 pg (25-35) Mean Corpuscular Hemoglobin Concent 34 g/dL (31-37) Red Cell Distribution Width 14.6 % (11.5-14.5) Platelet Count 158 x10^3/uL (140-400) Neutrophils (%) (Auto) 89 % (31-73) Lymphocytes (%) (Auto) 5 % (24-48) Monocytes (%) (Auto) 6 % (0-9) Eosinophils (%) (Auto) 0 % (0-3) Basophils (%) (Auto) 0 % (0-3) Neutrophils # (Auto) 9.4 x10^3/uL (1.8-7.7) Lymphocytes # (Auto) 0.5 x10^3/uL (1.0-4.8) Monocytes # (Auto) 0.6 x10^3/uL (0.0-1.1) Eosinophils # (Auto) 0.0 x10^3/uL (0.0-0.7) Basophils # (Auto) 0.0 x10^3/uL (0.0-0.2) Segmented Neutrophils % 82 % (35-66) Band Neutrophils % 2 % (0-9) Lymphocytes % 7 % (24-48) Atypical Lymphocytes % (Manual) 1 % (0-0) Monocytes % 8 % (0-10) Platelet Estimate Adequate (ADEQUATE) Tear Drop Cells Occ Ovalocytes Few Sodium Level 138 mmol/L (136-145) Potassium Level 4.2 mmol/L (3.5-5.1) Chloride Level 103 mmol/L (98-107) Carbon Dioxide Level 28 mmol/L (21-32) Anion Gap 7 (6-14) Blood Urea Nitrogen 33 mg/dL (8-26) Creatinine 1.0 mg/dL (0.7-1.3) Estimated GFR (Cockcroft-Gault) 75.0 BUN/Creatinine Ratio 33 (6-20) Glucose Level 316 mg/dL (70-99) Calcium Level 8.9 mg/dL (8.5-10.1) Total Bilirubin 0.7 mg/dL (0.2-1.0) Aspartate Amino Transf (AST/SGOT) 19 U/L (15-37) Alanine Aminotransferase (ALT/SGPT) 45 U/L (16-63) Alkaline Phosphatase 91 U/L (46-116) Total Protein 6.5 g/dL (6.4-8.2) Albumin 3.2 g/dL (3.4-5.0) Albumin/Globulin Ratio 1.0 (1.0-1.7) Glucose (Fingerstick) 229 mg/dL (70-99) Laboratory Tests Test 02/26/19 12:02 02/26/19 16:30 02/26/19 17:01 02/26/19 20:37 Glucose (Fingerstick) 172 mg/dL (70-99) 116 mg/dL (70-99) 166 mg/dL (70-99) Sodium Level 143 mmol/L (136-145) Potassium Level 3.8 mmol/L (3.5-5.1) Chloride Level 104 mmol/L (98-107) Carbon Dioxide Level 29 mmol/L (21-32) Anion Gap 10 (6-14) Blood Urea Nitrogen 27 mg/dL (8-26) Creatinine 1.1 mg/dL (0.7-1.3) Estimated GFR (Cockcroft-Gault) 67.2 Glucose Level 138 mg/dL (70-99) Calcium Level 8.8 mg/dL (8.5-10.1) Magnesium Level 2.0 mg/dL (1.8-2.4) Test 02/27/19 04:50 02/27/19 07:48 White Blood Count 10.5 x10^3/uL (4.0-11.0) Red Blood Count 4.37 x10^6/uL (4.30-5.70) Hemoglobin 13.2 g/dL (13.0-17.5) Hematocrit 39.6 % (39.0-53.0) Mean Corpuscular Volume 91 fL (79-100) Mean Corpuscular Hemoglobin 30 pg (25-35) Mean Corpuscular Hemoglobin Concent 34 g/dL (31-37) Red Cell Distribution Width 14.6 % (11.5-14.5) Platelet Count 158 x10^3/uL (140-400) Neutrophils (%) (Auto) 89 % (31-73) Lymphocytes (%) (Auto) 5 % (24-48) Monocytes (%) (Auto) 6 % (0-9) Eosinophils (%) (Auto) 0 % (0-3) Basophils (%) (Auto) 0 % (0-3) Neutrophils # (Auto) 9.4 x10^3/uL (1.8-7.7) Lymphocytes # (Auto) 0.5 x10^3/uL (1.0-4.8) Monocytes # (Auto) 0.6 x10^3/uL (0.0-1.1) Eosinophils # (Auto) 0.0 x10^3/uL (0.0-0.7) Basophils # (Auto) 0.0 x10^3/uL (0.0-0.2) Segmented Neutrophils % 82 % (35-66) Band Neutrophils % 2 % (0-9) Lymphocytes % 7 % (24-48) Atypical Lymphocytes % (Manual) 1 % (0-0) Monocytes % 8 % (0-10) Platelet Estimate Adequate (ADEQUATE) Tear Drop Cells Occ Ovalocytes Few Sodium Level 138 mmol/L (136-145) Potassium Level 4.2 mmol/L (3.5-5.1) Chloride Level 103 mmol/L (98-107) Carbon Dioxide Level 28 mmol/L (21-32) Anion Gap 7 (6-14) Blood Urea Nitrogen 33 mg/dL (8-26) Creatinine 1.0 mg/dL (0.7-1.3) Estimated GFR (Cockcroft-Gault) 75.0 BUN/Creatinine Ratio 33 (6-20) Glucose Level 316 mg/dL (70-99) Calcium Level 8.9 mg/dL (8.5-10.1) Total Bilirubin 0.7 mg/dL (0.2-1.0) Aspartate Amino Transf (AST/SGOT) 19 U/L (15-37) Alanine Aminotransferase (ALT/SGPT) 45 U/L (16-63) Alkaline Phosphatase 91 U/L (46-116) Total Protein 6.5 g/dL (6.4-8.2) Albumin 3.2 g/dL (3.4-5.0) Albumin/Globulin Ratio 1.0 (1.0-1.7) Glucose (Fingerstick) 229 mg/dL (70-99) Medications Active Scripts Medications Dose Route/Sig Max Daily Dose Days Date Category Dose Instructions Symbicort 160-4.5 Mcg Inhaler (Budesonide/Formoterol Fumarate) 10.2 Gm Hfa.aer.ad 2 Puff IH BID 02/23/19 Reported Duloxetine Hcl 60 Mg Capsule. 60 Mg PO DAILY 02/23/19 Reported Atorvastatin Calcium 20 Mg Tablet 20 Mg PO HS 02/23/19 Reported One Daily Multivitamin (Multivitamin) 1 Each Tablet 1 Tab PO DAILY 30 02/23/19 Reported Cranberry (Cranberry Extract) 425 Mg Capsule 4,200 Mg PO BID 07/17/18 Reported Senna (Sennosides) 8.6 Mg Tablet 8.6 Mg PO HS 07/17/18 Reported Tylenol (Acetaminophen) 325 Mg Tablet 2 Tab PO PRN Q4HRS 07/17/18 Reported Tresiba Flextouch U-100 (Insulin Degludec) 100 Unit/1 Ml Insuln.pen 70 Unit SQ HS 07/17/18 Reported Tresiba (Insulin Degludec) 100 Unit/1 Ml Vial 75 Unit SQ DAILY07 07/17/18 Reported Gabapentin (Gabapentin) 300 Mg Capsule 600 Mg PO TID 07/17/18 Reported Duoneb 0.5-3(2.5) Mg/3 Ml (Albuterol/Ipratropium) 3 Ml Ampul.neb 3 Ml NEB Q6HRS 30 01/03/18 Rx Oxycodone Hcl Immed.release (Oxycodone Hcl) 10 Mg Tablet 1 Tab PO QID PRN 01/03/18 Rx Tamsulosin Hcl 0.4 Mg Cap.er.24h 1 Cap PO BID 01/03/18 Rx Aspirin 325 Mg Tablet 1 Tab PO DAILY 11/28/17 Reported Prilosec (Omeprazole) 40 Mg Capsule. 40 Mg PO DAILY 07/11/13 Reported MAY TAKE ANY TIME Impression . IMPRESSION: 1. Acute hypoxic respiratory failure, 2. Abnormal chest x-ray. See comments below. 3. Chronic obstructive pulmonary disease. 4. Coronary artery disease. 5. TOBACCO DEPENDENT 6 DYSPHAGIA COMMENT: I did review his chest x-ray. I agree that he has a vague right mid lung field infiltrate. It is compatible with either pneumonia or pulmonary edema. His history to me is more compatible with pulmonary edema, although I do not think that you can be certain. ESOPHAGRAM IMPRESSION: 1. Limited epiglottic inversion lead to prolonged retention of a barium pill. The pill was eventually aspirated then expectorated. This reproduced the patient's symptoms. Assessment by speech pathology is recommended. Endoscopy could assess for a cause of decreased epiglottic movement. Plan . d/c home follow up in office in Dec Possible outpt ENT GERARD CHRISTIANSEN MD Feb 27, 2019 08:57
[2019-02-27] MEDS: methylPREDNISolone SOD SUCC PF 40 MG/ML VIAL. IV SCH (09:13)
[2019-02-27] MEDS: ASPIRIN 325 MG TABLET PO SCH (09:14)
[2019-02-27] MEDS: GABAPENTIN 300 MG CAPSULE. PO SCH ×2 (09:14→13:35)
[2019-02-27] MEDS: oxyCODONE IR 5 MG TABLET PO PRN ×2 (09:15→13:32)
[2019-02-27] MEDS: cefTRIAXone IV Push 1 GM VIAL. IVP SCH (09:15)
[2019-02-27] MEDS: DOXYCYCLINE HYCLATE 100 MG TABLET PO SCH (09:15)
[2019-02-27] MEDS: TAMSULOSIN 0.4 MG CAP.ER.24H. PO SCH (09:15)
[2019-02-27] MEDS: DULoxetine HCL 30 MG CAPSULE.DR PO SCH (09:15)
[2019-02-27] MEDS: LACTOBACILLUS RHAMNOSUS GG 1 CAPSULE. PO SCH (09:20)
[2019-02-27] MEDS: INSULIN LISPRO 300 UNITS/3 ML VIAL. SQ SCH ×6 (09:37→17:00)
[2019-02-27 11:05] VITALS: BP 136/75
--- NOTE | 2019-02-27 12:31 | PDOC ---
JACQUELYN FLORES SOFTWARE TEST DEVELOPER 02/27/19 1230: CARDIO Progress Notes Date and Time Date of Service 02/27/2019 Time of Evaluation 1120 Subjective Subjective: No Chest Pain, Other (breathing slightly improved) Vitals Vitals Vital Signs Date Time Temp Pulse Resp B/P (MAP) Pulse Ox O2 Delivery O2 Flow Rate FiO2 02/27/19 11:05 97.7 97 20 136/75 (95) 97 Nasal Cannula 1.0 97.7 Weight Weight [ ] Input and Output Intake and Output Intake and Output 02/27/19 07:00 Intake Total 2480 ml Output Total 5000 ml Balance -2520 ml Intake Oral 2480 ml Output Urine Total 5000 ml Laboratory Labs Laboratory Tests Test 02/26/19 12:02 02/26/19 16:30 02/26/19 17:01 02/26/19 20:37 Glucose (Fingerstick) 172 mg/dL (70-99) 116 mg/dL (70-99) 166 mg/dL (70-99) Sodium Level 143 mmol/L (136-145) Potassium Level 3.8 mmol/L (3.5-5.1) Chloride Level 104 mmol/L (98-107) Carbon Dioxide Level 29 mmol/L (21-32) Anion Gap 10 (6-14) Blood Urea Nitrogen 27 mg/dL (8-26) Creatinine 1.1 mg/dL (0.7-1.3) Estimated GFR (Cockcroft-Gault) 67.2 Glucose Level 138 mg/dL (70-99) Calcium Level 8.8 mg/dL (8.5-10.1) Magnesium Level 2.0 mg/dL (1.8-2.4) Test 02/27/19 04:50 02/27/19 07:48 White Blood Count 10.5 x10^3/uL (4.0-11.0) Red Blood Count 4.37 x10^6/uL (4.30-5.70) Hemoglobin 13.2 g/dL (13.0-17.5) Hematocrit 39.6 % (39.0-53.0) Mean Corpuscular Volume 91 fL (79-100) Mean Corpuscular Hemoglobin 30 pg (25-35) Mean Corpuscular Hemoglobin Concent 34 g/dL (31-37) Red Cell Distribution Width 14.6 % (11.5-14.5) Platelet Count 158 x10^3/uL (140-400) Neutrophils (%) (Auto) 89 % (31-73) Lymphocytes (%) (Auto) 5 % (24-48) Monocytes (%) (Auto) 6 % (0-9) Eosinophils (%) (Auto) 0 % (0-3) Basophils (%) (Auto) 0 % (0-3) Neutrophils # (Auto) 9.4 x10^3/uL (1.8-7.7) Lymphocytes # (Auto) 0.5 x10^3/uL (1.0-4.8) Monocytes # (Auto) 0.6 x10^3/uL (0.0-1.1) Eosinophils # (Auto) 0.0 x10^3/uL (0.0-0.7) Basophils # (Auto) 0.0 x10^3/uL (0.0-0.2) Segmented Neutrophils % 82 % (35-66) Band Neutrophils % 2 % (0-9) Lymphocytes % 7 % (24-48) Atypical Lymphocytes % (Manual) 1 % (0-0) Monocytes % 8 % (0-10) Platelet Estimate Adequate (ADEQUATE) Tear Drop Cells Occ Ovalocytes Few Sodium Level 138 mmol/L (136-145) Potassium Level 4.2 mmol/L (3.5-5.1) Chloride Level 103 mmol/L (98-107) Carbon Dioxide Level 28 mmol/L (21-32) Anion Gap 7 (6-14) Blood Urea Nitrogen 33 mg/dL (8-26) Creatinine 1.0 mg/dL (0.7-1.3) Estimated GFR (Cockcroft-Gault) 75.0 BUN/Creatinine Ratio 33 (6-20) Glucose Level 316 mg/dL (70-99) Calcium Level 8.9 mg/dL (8.5-10.1) Total Bilirubin 0.7 mg/dL (0.2-1.0) Aspartate Amino Transf (AST/SGOT) 19 U/L (15-37) Alanine Aminotransferase (ALT/SGPT) 45 U/L (16-63) Alkaline Phosphatase 91 U/L (46-116) Total Protein 6.5 g/dL (6.4-8.2) Albumin 3.2 g/dL (3.4-5.0) Albumin/Globulin Ratio 1.0 (1.0-1.7) Glucose (Fingerstick) 229 mg/dL (70-99) Microbiology Micro Microbiology 02/23/19 Blood Culture - Preliminary, Resulted NO GROWTH AFTER 4 DAYS Physical Exam HEENT: Neck Supple W Full Motion Chest: Symmetric LUNGS: Other (diminished bases) Heart: S1S2, RRR (paced rhythm) Abdomen: Soft N/T Extremities: Other (1+ bilateral Le pitting edema) Neurology: alert, oriented, follow commands Assessment Assessment 1. Acute on chronic respiratory failure; multifactorial with a/c CHF, COPD, and poss PNA 2. CAD s/p PCI to the RCA; cath revealed non-obstructive CAD involving the LCx. Previously placed stent in the RCA was patent 3. Acute on chronic combined diastolic/systolic: EF 20-25% 4. Severe NICM: NYHA2 5. Secondary pulmonary HTN 6. HTN: controlled 7. HLP 8. Severe COPD with ongoing tobaccoism 9. DM2 10. PPM in situ with known CSH. Biotronik. 11. Dysphagia; video swallow today Recommendations 1. PO Lasix therapy. Will start on low dose Entresto. BMP in 2 weeks and will note any further adjustment with entresto 2. Secondary prevention measures 3. 2L FR, Daily wt. 4. Pacer spike on T waves. Will interrogate device. 5. Will need Lifevest. Possible upgrade to AICD in 3 months DEL STEPHENS MD 02/27/19 1628: CARDIO Progress Notes Assessment Assessment Patient seen and examined. Agree with FIRE BOSS's assessment and plan. Symptoms improved with intravenous Lasix. Change to by mouth. Start entresto to optimize therapy for acute on chronic systolic heart failure Cardiac catheterization did not show any lesions needing intervention Agree with LifeVest and repeat 2-D echo in 3 months to evaluate the need for pacemaker upgrade to AICD JACQUELYN FLORES APRN Feb 27, 2019 12:30 DEL STEPHENS MD Feb 27, 2019 16:28
--- NOTE | 2019-02-27 12:56 | PDOC ---
Subjective: Subjective: Swallowing okay today, wants to know what an ENT is. Objective: Objective: D/w Elsa/CATEGORY DEVELOPMENT ANALYST yesterday afternoon. D/w nurse today - no swallowing complaints, thinks turning head to left helps - possible DC today. Vital Signs: Vital Signs Date Time Temp Pulse Resp B/P (MAP) Pulse Ox O2 Delivery O2 Flow Rate FiO2 02/27/19 11:48 96 Nasal Cannula 1.0 02/27/19 11:05 97.7 97 20 136/75 (95) 97.7 Labs: Laboratory Tests Test 02/26/19 17:01 02/26/19 20:37 02/27/19 07:48 02/27/19 12:00 Glucose (Fingerstick) 116 mg/dL (70-99) 166 mg/dL (70-99) 229 mg/dL (70-99) 107 mg/dL (70-99) Imaging: Videoswallow IMPRESSION: 1. Correlate for clinical causes of limited epiglottic movement. 2. Laryngeal penetration without gross aspiration. Videoswallow Study Results IMPRESSIONS: Vallecular retention of puree and solids in mod-severe amts r/t anatomical variation in the shape of the epiglottis, c/w pt's c/o food sticking. Coughing was not consistent aspiration in this study; pt coughed vigorously w/o evidence of aspiration. Transient penetration was noted which ejected at initial or secondary swallow. Epiglottic shape variation would not be a new finding. Therefore, suspect decline in pt's overall ability to produce a swallow of adequate strength to compensate. Pharyngeal delay is minimal, and foreseeably would not result in penetration before swallow. However, the bolus is directed toward the airway instead of accumulating in the valleculae (curled epiglottis allows bolus to roll over it, toward airway). Pt benefitted during videoswallow from head turn to L to reduce vallecular residue. RECOMMENDATIONS: Con't dysphagia II w/thin liquids. Small sips. Turn head to L to swallow solids and follow w/liquid using head turn to L. Con't dysphagia tx at HH or OP level p.discharge from acute care. Echocardiogram <Conclusion> The ejection fraction is severely impaired. The Ejection Fraction is 20-25%. There is global hypokinesis of the left ventricle. Pacer lead noted in RV/RA. Doppler and Color Flow revealed mild tricuspid regurgitation. There is moderate pulmonary hypertension. The PA pressure was estimated at 58 mmHg. PE: GEN: NAD - sitting on edge of bed eating lunch LUNGS: NC 1L HEART: RR ABD: S/ND/NT NEURO/PSYCH: A & O 3 A/P: COPD, CHF, NICM Dysphagia - videoswallow/CATEGORY DEVELOPMENT ANALYST discussion as above GERD -- Appreciate speech evals/recs. DC per primary, continue PPI for GERD, consider ENT eval. YONATHAN WU Feb 27, 2019 12:56
[2019-02-27] MEDS ORDERED: FUROSEMIDE 40 MG TABLET. PO SCH (13:00)
--- NOTE | 2019-02-27 13:16 | NUR ---
SS following up with discharge planning. SS received script for outpatient speech therapy. SS contacted outpatient therapy department, [phone]; fax [phone], and spoke with Molly. SS phoned and faxed script and clinical to outpatient therapy. Six minute walk ordered and in process. SS will continue to follow for discharge planning. Life vest ordered by case management.
[2019-02-27 14:04] LABS: CHOLESTEROL/HDL RATIO 3.6
--- NOTE | 2019-02-27 14:35 | PDOC ---
[employer] PROGRESS NOTE Chief Complaint Chief Complaint Acute COPD exacerbation SIRS - sepsis given his pneumonia, given antibiotics RLL pneumonia CAD s/p prior PCI to RCA Acute hypoxic respiratory failure - wean O2 as tolerated. has never had home O2 Smoker - very heavy, offered nicotine patch. He has apparently been using smokeless tobacco in house dysphagia, prob esophageal, complains of solid food problems only, consulted GI, discussed with speech History of Present Illness History of Present Illness 02/27/19 Pt seen and examined. Pt sitting on edge of bed, in no distress. Says he is ready to go home. Discussed with , discussed with nurse. Will discharge after fitted with defibrillator life vest and OK'd by cardiology. Pt will follow up with speech on outpatient basis for dysphagia. 02/26/19 Pt seen and examined. Pt sitting propped up in bed and conversant and relaxed, in no acute distress. Reports improvement in breathing. Will have video swallow study today. Had some aspiration on supine esophogram previously. Discussed with family members and nurse and speech therapist. 02/25/19 Mr Whitt is a 63-year-old male w/ PMHx CAD s/p stenting, CHF, PPM in situ, Hyperlipidemia, COPD, prior CVA, Periperal neuropathy, GERD, Cirrhosis, Depression, BPH, DM2, ex-smoker who p/w shortness of breath and hypoxemia. Smoked 3ppd of cigarettes since age 8 until 6 months ago, but on further review he started smoking cigars and using chewing tobacco instead. Multiple hospitalizations for COPD exacerbations. He notes that he has been having more shortness of breath for the past 3 weeks. He has had orthopnea and paroxysmal nocturnal dyspnea. He also notes that he has been having chest tightness and chest pain with his shortness of breath. Overnight breathing improved somewhat, but still on O2, not great air movement, cough productive of brown sputum. No CP. He has apparently been using smokeless tobacco in house, counseled against this. Aspirated barium pill on esophagram, awaiting EFFICIENCY ANALYST evaluation Vitals/I&O Vitals/I&O: Vital Signs Date Time Temp Pulse Resp B/P (MAP) Pulse Ox O2 Delivery O2 Flow Rate FiO2 02/27/19 11:48 96 Nasal Cannula 1.0 02/27/19 11:05 97.7 97 20 136/75 (95) 97.7 I & O 11/09/0902/26/19 02/27/19 15:00 23:00 07:00 Intake Total 380 ml 1040 ml 1060 ml Output Total 400 ml 2875 ml 1725 ml Balance -20 ml -1835 ml -665 ml Physical Exam General: Alert, Oriented X3, Cooperative, No acute distress Heart: Regular rate, Normal S1, Normal S2 Lungs: Wheezing Abdomen: Normal bowel sounds, Soft Extremities: No clubbing, No edema, Normal pulses Skin: No rashes, No breakdown Labs Labs: Laboratory Tests Test 02/26/19 16:30 02/26/19 17:01 02/26/19 20:37 02/27/19 04:50 Sodium Level 143 mmol/L (136-145) 138 mmol/L (136-145) Potassium Level 3.8 mmol/L (3.5-5.1) 4.2 mmol/L (3.5-5.1) Chloride Level 104 mmol/L (98-107) 103 mmol/L (98-107) Carbon Dioxide Level 29 mmol/L (21-32) 28 mmol/L (21-32) Anion Gap 10 (6-14) 7 (6-14) Blood Urea Nitrogen 27 mg/dL (8-26) 33 mg/dL (8-26) Creatinine 1.1 mg/dL (0.7-1.3) 1.0 mg/dL (0.7-1.3) Estimated GFR (Cockcroft-Gault) 67.2 75.0 Glucose Level 138 mg/dL (70-99) 316 mg/dL (70-99) Calcium Level 8.8 mg/dL (8.5-10.1) 8.9 mg/dL (8.5-10.1) Magnesium Level 2.0 mg/dL (1.8-2.4) Glucose (Fingerstick) 116 mg/dL (70-99) 166 mg/dL (70-99) White Blood Count 10.5 x10^3/uL (4.0-11.0) Red Blood Count 4.37 x10^6/uL (4.30-5.70) Hemoglobin 13.2 g/dL (13.0-17.5) Hematocrit 39.6 % (39.0-53.0) Mean Corpuscular Volume 91 fL (79-100) Mean Corpuscular Hemoglobin 30 pg (25-35) Mean Corpuscular Hemoglobin Concent 34 g/dL (31-37) Red Cell Distribution Width 14.6 % (11.5-14.5) Platelet Count 158 x10^3/uL (140-400) Neutrophils (%) (Auto) 89 % (31-73) Lymphocytes (%) (Auto) 5 % (24-48) Monocytes (%) (Auto) 6 % (0-9) Eosinophils (%) (Auto) 0 % (0-3) Basophils (%) (Auto) 0 % (0-3) Neutrophils # (Auto) 9.4 x10^3/uL (1.8-7.7) Lymphocytes # (Auto) 0.5 x10^3/uL (1.0-4.8) Monocytes # (Auto) 0.6 x10^3/uL (0.0-1.1) Eosinophils # (Auto) 0.0 x10^3/uL (0.0-0.7) Basophils # (Auto) 0.0 x10^3/uL (0.0-0.2) Segmented Neutrophils % 82 % (35-66) Band Neutrophils % 2 % (0-9) Lymphocytes % 7 % (24-48) Atypical Lymphocytes % (Manual) 1 % (0-0) Monocytes % 8 % (0-10) Platelet Estimate Adequate (ADEQUATE) Tear Drop Cells Occ Ovalocytes Few BUN/Creatinine Ratio 33 (6-20) Total Bilirubin 0.7 mg/dL (0.2-1.0) Aspartate Amino Transf (AST/SGOT) 19 U/L (15-37) Alanine Aminotransferase (ALT/SGPT) 45 U/L (16-63) Alkaline Phosphatase 91 U/L (46-116) Total Protein 6.5 g/dL (6.4-8.2) Albumin 3.2 g/dL (3.4-5.0) Albumin/Globulin Ratio 1.0 (1.0-1.7) Triglycerides Level 59 mg/dL (0-150) Cholesterol Level 119 mg/dL (0-200) LDL Cholesterol, Calculated 74 mg/dL (0-100) VLDL Cholesterol, Calculated 12 mg/dL (0-40) Non-HDL Cholesterol Calculated 86 mg/dL (0-129) HDL Cholesterol 33 mg/dL (40-60) Cholesterol/HDL Ratio 3.6 Thyroid Stimulating Hormone (TSH) 0.773 uIU/mL (0.358-3.74) Test 02/27/19 07:48 02/27/19 12:00 Glucose (Fingerstick) 229 mg/dL (70-99) 107 mg/dL (70-99) Review of Systems Review of Systems: Yes dysphagia Improved shortness of breath No N/V Assessment and Plan Assessmemt and Plan Problems Medical Problems: (1) Acute respiratory distress Status: Acute (2) CAP (community acquired pneumonia) Status: Acute (3) COPD with acute bronchitis Status: Acute (4) Dyslipidemia Status: Chronic (5) Dysphagia Status: Acute (6) HTN (hypertension) Status: Chronic (7) Hypoxia Status: Acute (8) RLL pneumonia Status: Chronic Hypoxic respiratory failure - improved RLL pneumonia COPD exacerbation Sepsis dysphagia Hx of CHF Hx of CAD with prior stent Hx of CVA Hx of cirrhosis Has pacemaker device Hopefully discharge home today after fitted for life vest defibrillator, pacemaker interrogated, and OK with cardiology Cardiac monitoring O2 per nasal canula PRN duonebs Doxycycline PO 100mg BID DVT ppx home meds Video swallow study 02/26/19 - no gross aspiration but limited epiglottic movement Dysphagia diet Outpatient speech/swallow follow-up Comment Review of Relevant I have reviewed the following items bud (where applicable) has been applied. Medications: Current Medications Medications (Trade) Dose Ordered Sig/Aretha Route PRN Reason Start Time Stop Time Status Last Admin Dose Admin Furosemide (Lasix) 40 mg 1X ONCE IVP 02/26/19 15:15 02/26/19 15:16 DC 02/26/19 16:09 Furosemide (Lasix) 40 mg DAILY PO 02/27/19 13:00 02/27/19 13:32 NITESH BOCANEGRA III DO Feb 27, 2019 14:35
--- NOTE | 2019-02-27 14:52 | NUR ---
SS following up with discharge planning. Script for oxygen received. SS phoned and faxed script and referral to [facility], ; fax [phone]. Carmina with [facility] reported that they are not in network with [facility] insurance. SS phoned and faxed script and referral to [facility], ; fax [phone]. [facility] confirmed receipt of script and clinical. SS provided pt's RN with oxygen tank for home.
[2019-02-27 15:00] VITALS: BP 141/76
[2019-02-27] MEDS ORDERED: POTA10TA12 PO (15:36)
[2019-02-27] MEDS ORDERED: FURO-68 PO (15:36)
[2019-02-27] MEDS ORDERED: DOXY50TA8 PO (15:37)
[2019-02-27] MEDS ORDERED: METH4TAB2 PO (15:40)
--- NOTE | 2019-02-27 18:00 | NUR ---
Discharge Note: JASPREET JAY Discharge instructions and discharge home medications reviewed with Patient and a copy given. All questions have been answered and understanding verbalized. Follow up appointment information provided to patient. The following instructions and handouts were given: Heart failure, oxygen use at home, furosemide tablets, entresto, doxycycline, cardiac catheterization discharge instructions, and pneumonia. Discontinued lines and drains: Peripheral IV intact. Patient discharged to Home or Self Care with Family Member via Wheelchair
[2019-02-27] MEDS ORDERED: SACUBITRIL/VALSARTAN 24/26MG TABLET. PO SCH (21:00)
[2019-02-28] MEDS ORDERED: POTASSIUM CHLORIDE 10 MEQ TABLET.ER. PO SCH (13:00)
--- NOTE | 2019-02-28 19:58 | DS ---
DATE OF DISCHARGE: 02/27/2019 ADMISSION DIAGNOSIS: Pneumonia. DISCHARGE DIAGNOSIS: Resolving pneumonia. HOSPITAL COURSE: The patient is a pleasant middle-aged female who presented with pneumonia. She was admitted. We gave her IV antibiotics and fluids, nebulizers, and oxygen. We consulted Pulmonary. Over the next few days, her symptoms resolved. She did have some arrhythmias and already has a pacemaker, so it was determined to go ahead and get her a LifeVest to make sure that she does not need actually a defibrillator. Yesterday, we saw her and examined her. She was doing well. We discharged to home with a LifeVest. DISPOSITION: Home. ACTIVITY: As tolerated. MEDICATIONS: Please see MRAD. TOTAL TIME: 32 minutes. NITESH BOCANEGRA DO DR: JAMES/allison JOB#: [id number] / [id number]
== END 2019-02-27 18:00 | disposition home or self-care (01) | DRG 871 ==
LOC: ER 07:47 → 2 NORTH 08:40
PROVIDERS: ADMIT Internal Medicine; ATTEND Internal Medicine
PROC: 4A023N8 Measurement of Cardiac Sampling and Pressure, Bilateral, Percutaneous Approach (ICD-10-PCS; principal; 2019-02-25)
PROC: B2111ZZ Fluoroscopy of Multiple Coronary Arteries using Low Osmolar Contrast (ICD-10-PCS; 2019-02-25)
PROC: 4B02XSZ Measurement of Cardiac Pacemaker, External Approach (ICD-10-PCS; 2019-02-27)
DX: A41.9 Sepsis, unspecified organism (principal); I50.43 Acute on chronic combined systolic (congestive) and diastolic (congestive) heart failure; J96.21 Acute and chronic respiratory failure with hypoxia; J18.9 Pneumonia, unspecified organism; I25.110 Atherosclerotic heart disease of native coronary artery with unstable angina pectoris; I42.8 Other cardiomyopathies; J44.0 Chronic obstructive pulmonary disease with (acute) lower respiratory infection; J44.1 Chronic obstructive pulmonary disease with (acute) exacerbation; I27.20 Pulmonary hypertension, unspecified; E11.42 Type 2 diabetes mellitus with diabetic polyneuropathy; I11.0 Hypertensive heart disease with heart failure; E78.00 Pure hypercholesterolemia, unspecified; E78.5 Hyperlipidemia, unspecified; J20.9 Acute bronchitis, unspecified; K21.9 Gastro-esophageal reflux disease without esophagitis; K59.09 Other constipation; M06.9 Rheumatoid arthritis, unspecified; N40.0 Benign prostatic hyperplasia without lower urinary tract symptoms; R13.10 Dysphagia, unspecified; F32.9 Major depressive disorder, single episode, unspecified; G89.29 Other chronic pain; M19.90 Unspecified osteoarthritis, unspecified site; F17.210 Nicotine dependence, cigarettes, uncomplicated; I25.2 Old myocardial infarction; Z82.49 Family history of ischemic heart disease and other diseases of the circulatory system; Z86.73 Personal history of transient ischemic attack (TIA), and cerebral infarction without residual deficits; Z90.49 Acquired absence of other specified parts of digestive tract; Z95.0 Presence of cardiac pacemaker; Z95.5 Presence of coronary angioplasty implant and graft
CPT/HCPCS: 36415; 36600; 71045; 74220; 74230; 80048; 80053; 80061; 82550; 82805; 82962; 83605; 83735; 83880; 84145; 84443; 84484; 85007; 85025; 85379; 85610; 86705; 86709; 86803; 87040; 87340; 93005; 93306; 93460; 94618; 94640; 94760; 96365; 96375; 99152; 99153; C1760; C1769; C1773; C1892; J0696; J1170; J1644; J1815; J1940; J2250; J2920; J2930; J3010; J3370; J7030; J7040; J7613; J7620; J7626; Q9967; 92526; 92610; 92611; 99291-25; C1771; G0378

== ENCOUNTER → 2019-05-09 | Outpatient (CLI) | payer MEDICARE ==
[~2019-05-09] MED LIST changes: +DOXY50TA8 PO; +DULO60CA45 PO; +FURO-68 PO; +METH4TAB2 PO; +MULT-475 PO; +POTA10TA12 PO; +SACU1TAB PO
--- NOTE | 2019-05-09 16:41 | CARD ---
MR#: [id number] Date of Study: 05/09/2019 Ordering Physician: DEL STEPHENS, Referring Physician: DEL STEPHENS Tech: Sharon Ozuna RDCS APPROVED REPORT EXAM: Two-dimensional and M-mode echocardiogram with Doppler and color Doppler. Other Information Quality : Good INDICATION Congestive Heart Failure 2D DIMENSIONS RVDd2.9 (2.9-3.5cm)Left Atrium(2D)4.5 (1.6-4.0cm) IVSd1.1 (0.7-1.1cm)Aortic Root(2D)2.9 (2.0-3.7cm) LVDd6.2 (3.9-5.9cm)LVOT Diameter2.3 (1.8-2.4cm) PWd1.1 (0.7-1.1cm)LVDs5.4 (2.5-4.0cm) FS (%) 12.5 %SV50.9 ml LVEF(%)20.0 (>50%) M-Mode DIMENSIONS LVDd6.67 (4.0-5.6cm)MV EPSS2.2 (<0.5cm) FS (%) 14 %LVDs5.72 (2.0-3.8cm) ESV(Teich)161.1 mlLVEF(%)30 (>50%) Aortic Valve AoV Peak Kenan.101.2cm/sAoV VTI15.3cm AO Peak GR.4.1mmHgLVOT Peak Kenan.77.5cm/s AO Mean GR.3mmHgAVA (VMAX)3.13cm2 SAL (VTI)3.90cm2 Mitral Valve MV E Okddclqa569.7cm/sMV DECEL DLTI808iv MV A Hmaiyetr94.7cm/sE/A Ratio2.1 Tricuspid Valve TR P. Ieusjkoq098ib/sRAP XBGKYCSI1siIr TR Peak Gr.92qhKwSVML14egUv Pulmonary Vein S1 Orqgaduy45.5cm/sD2 Rmdyjmwj30.9cm/s LEFT VENTRICLE The Left Ventricle is mildly dilated. There is normal left ventricular wall thickness. Left ventricle systolic function is severely impaired. The Ejection Fraction is 20-25%. There is severe global hypo kinesis of the left ventricle. RIGHT VENTRICLE The right ventricle is normal size. The right ventricular systolic function is normal. There is a pac emaker lead in the right ventricle. ATRIA The left atrium is mildly dilated. The right atrium size is normal. A pacemaker is seen in the right atrium consistent with history. The interatrial septum is intact with no evidence for an atrial septa l defect or patent foramen ovale as noted on 2-D or Doppler imaging. AORTIC VALVE The aortic valve is calcified but opens well. Doppler and Color Flow revealed no significant aortic r egurgitation. There is no significant aortic valvular stenosis. MITRAL VALVE The mitral valve is normal in structure and function. Posterior mitral annular calcification is mild. There is no evidence of mitral valve prolapse. There is no mitral valve stenosis. Doppler and Color- flow revealed trace mitral regurgitation. TRICUSPID VALVE The tricuspid valve is normal in structure and function. Doppler and Color Flow revealed trace tricus pid regurgitation. There is mild pulmonary hypertension. The PA pressure was estimated at 33 mmHg. Th ere is no tricuspid valve stenosis. PULMONIC VALVE The pulmonic valve is not well visualized. Doppler and Color Flow revealed mild pulmonic valvular reg urgitation. There is no pulmonic valvular stenosis. GREAT VESSELS The aortic root is normal in size. The ascending aorta is not well seen. The IVC is dilated and colla pses >50% with inspiration. PERICARDIAL EFFUSION There is no evidence of significant pericardial effusion. Critical Notification Critical Value: No <Conclusion> Left ventricle systolic function is severely impaired. The Ejection Fraction is 20-25%. There is a pacemaker lead in the right atrium and ventricle. Trace mitral regurgitation. Trace tricuspid regurgitation. The PA pressure was estimated at 33 mmHg. There is no evidence of significant pericardial effusion. Signed by : Del Stephens, Electronically Approved : 05/09/2019 16:40:28
== END | disposition home or self-care (01) ==
LOC: ECHO 10:52
PROVIDERS: ATTEND Internal Medicine Cardiovascular Disease
DX: I08.8 Other rheumatic multiple valve diseases (principal); I27.20 Pulmonary hypertension, unspecified; I25.10 Atherosclerotic heart disease of native coronary artery without angina pectoris; Z95.0 Presence of cardiac pacemaker
CPT/HCPCS: 93306

== ENCOUNTER 2019-05-24 09:49 | Observation (INO) | payer MEDICARE ==
[2019-05-24] VITALS (11 sets, daily range): BP systolic 92–132; BP diastolic 65–83
[~2019-05-24] VITALS: Ht 185.4 cm; Wt 96.8 kg
[~2019-05-24 09:49] MED LIST changes: +HYDROmorphone 2 MG/ML VIAL IV PRN; +IV RINGERS,LACTATED 1000ML 1,000 ML IV SCH; +MORPHINE SULFATE 2 MG/ML VIAL. IV PRN; +ONDANSETRON PF 4 MG/2 ML VIAL. IV PRN; +PROCHLORPERAZINE 10 MG/2 ML VIAL. IV PRN; -SACU1TAB PO; +fentaNYL PF VIAL 100 MCG/2 ML VIAL IV PRN
[2019-05-24] MEDS ORDERED: BACITRACIN 50,000 UNIT in IV NORMAL SALINE 250ML 250 ML IRR ONE (10:15)
[2019-05-24] MEDS ORDERED: SACU1TAB PO (10:16)
--- NOTE | 2019-05-24 10:19 | EKG ---
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
[2019-05-24 10:23] LABS: HEMATOCRIT 49.5 % (39.0-53.0); HEMOGLOBIN 16.8 g/dL (13.0-17.5); RED BLOOD COUNT 5.6 x10^6/uL (4.30-5.70); RED CELL DISTRIBUTION WIDTH 15.9 % (11.5-14.5); WHITE BLOOD COUNT 11.5 x10^3/uL (4.0-11.0)
[2019-05-24 10:41] LABS: CALCIUM 9.4 mg/dL (8.5-10.1); CREATININE 1.2 mg/dL (0.7-1.3); GFR 60.8; POTASSIUM 4.3 mmol/L (3.5-5.1)
[2019-05-24] MEDS ORDERED: LIDOCAINE 2%/EPI 1:100,000 20 ML VIAL. IJ ONE (11:00)
[2019-05-24] MEDS ORDERED: LIDOCAINE 2%/EPI 1:100,000 20 ML VIAL. ONE (11:05)
[2019-05-24] MEDS ORDERED: MIDAZOLAM HCL/PF 5 MG/5 ML VIAL. ONE (11:07)
[2019-05-24] MEDS ORDERED: fentaNYL PF VIAL 100 MCG/2 ML VIAL ONE ×2 (11:07→12:12)
[2019-05-24] MEDS ORDERED: MIDAZOLAM HCL/PF 5 MG/5 ML VIAL. IV ONE (11:15)
[2019-05-24] MEDS ORDERED: fentaNYL PF VIAL 100 MCG/2 ML VIAL IV ONE (11:15)
[2019-05-24] MEDS ORDERED: IOHEXOL 300 MG/ML 100ML VIAL. ONE ×2 (12:16→13:27)
[2019-05-24] MEDS ORDERED: KETAMINE HCL IN NACL, ISO-OSM 50 MG/5 ML SYRINGE ONE (12:29)
[2019-05-24] MEDS ORDERED: PHENYLEPHRINE in 0.9% NACL PF 1 MG/10 ML SYRINGE. IV ONE (12:29)
[2019-05-24] MEDS: IOHEXOL 300 MG/ML 100ML VIAL. IART ONE (12:30)
[2019-05-24] MEDS ORDERED: PROPOFOL 50 ML IV ONE (12:30)
[2019-05-24] MEDS ORDERED: LIDOCAINE 1% Multi-Dose 20 ML VIAL. ONE (13:49)
[2019-05-24] MEDS ORDERED: PROPOFOL 300 ML IV ONE (14:01)
[2019-05-24] MEDS ORDERED: LIDOCAINE 1% Multi-Dose 20 ML VIAL. INJ ONE (15:15)
[2019-05-24] MEDS: fentaNYL PF VIAL 100 MCG/2 ML VIAL IV PRN ×3 (15:43→22:59)
[2019-05-24] MEDS ORDERED: NO ANTICOAGULANT THERAPY. MC PRN (15:45)
--- NOTE | 2019-05-24 16:01 | RAD ---
PORTABLE CHEST 1V History: Post pacemaker Comparison: February 23, 2019; December 2017 Findings: Single view of the chest is submitted. There is again a dual lead left electronic cardiac device. No pneumothorax is identified. There is right infrahilar opacity in part present previously although appears somewhat greater compared with the December 2017 exam and there is partial obscuration of the right heart border. There is no dependent pleural fluid. Cardiac silhouette is similar. Impression: 1. There is dual lead left electronic cardiac device, no convincing pneumothorax identified by radiograph. 2. There is right infrahilar opacity now with partial obstruction of the right heart border, could be component of atelectasis or infiltrate, short-term follow-up advised to exclude underlying mass such as in one month versus CT evaluation. Electronically signed by: Cam Avery MD (05/24/2019 3:58 PM) [facility]
[2019-05-24] MEDS ORDERED: DEXTROSE 50% 25 GM / 50ML DISP.SYRIN. IV PRN (18:00)
[2019-05-24] MEDS: INSULIN LISPRO 300 UNITS/3 ML VIAL. SQ SCH (18:00)
[2019-05-24] MEDS ORDERED: IV DEXTROSE 5% 250 ML BAG. IV PRN (18:00)
[2019-05-24] MEDS: HYDROcodone/APAP 5/325MG 1 TAB TABLET PO PRN (18:18)
[2019-05-24] MEDS: BUDESONIDE 0.5 MG/2 ML NEBU. NEB SCH (20:03)
[2019-05-24] MEDS: IPRATRPIUM/ALBUTEROL 0.5/2.5MG 3 ML NEBU. NEB SCH ×2 (20:03→23:41)
[2019-05-24] MEDS ORDERED: ATORVASTATIN CALCIUM 20 MG TABLET PO SCH (21:00)
[2019-05-24] MEDS: SACUBITRIL/VALSARTAN 24/26MG TABLET. PO SCH (21:00)
[2019-05-24] MEDS ORDERED: INSULIN GLARGINE SYRINGE. SQ SCH (21:00)
[2019-05-24] MEDS ORDERED: SENNOSIDES 8.6 MG TABLET PO SCH (21:00)
[2019-05-24] MEDS: TAMSULOSIN 0.4 MG CAP.ER.24H. PO SCH (21:20)
[2019-05-24] MEDS: GABAPENTIN 300 MG CAPSULE. PO SCH (21:21)
[2019-05-25 03:00] VITALS: BP 115/79
[2019-05-25] MEDS: oxyCODONE IR 5 MG TABLET PO PRN ×2 (03:30→11:41)
[2019-05-25 07:00] VITALS: BP 117/76
[2019-05-25] MEDS ORDERED: INSULIN GLARGINE SYRINGE. SQ SCH (07:00)
[2019-05-25] MEDS ORDERED: PANTOPRAZOLE 40 MG TABLET.DR. PO SCH (07:30)
[2019-05-25] MEDS: BUDESONIDE 0.5 MG/2 ML NEBU. NEB SCH (07:55)
[2019-05-25] MEDS: IPRATRPIUM/ALBUTEROL 0.5/2.5MG 3 ML NEBU. NEB SCH ×2 (07:55→12:02)
[2019-05-25] MEDS: INSULIN LISPRO 300 UNITS/3 ML VIAL. SQ SCH ×2 (08:00→12:18)
[2019-05-25] MEDS: HYDROcodone/APAP 5/325MG 1 TAB TABLET PO PRN (08:27)
[2019-05-25] MEDS: TAMSULOSIN 0.4 MG CAP.ER.24H. PO SCH (08:54)
[2019-05-25] MEDS: SACUBITRIL/VALSARTAN 24/26MG TABLET. PO SCH (08:54)
[2019-05-25] MEDS: GABAPENTIN 300 MG CAPSULE. PO SCH (08:55)
[2019-05-25] MEDS ORDERED: FUROSEMIDE 40 MG TABLET. PO SCH (09:00)
[2019-05-25] MEDS ORDERED: POTASSIUM CHLORIDE 10 MEQ TABLET.ER. PO SCH (09:00)
[2019-05-25] MEDS ORDERED: ASPIRIN 325 MG TABLET PO SCH (09:00)
[2019-05-25] MEDS ORDERED: MULTIVITAMIN with MINERAL TABLET. PO SCH (09:00)
[2019-05-25] MEDS ORDERED: DULoxetine HCL 30 MG CAPSULE.DR PO SCH (09:00)
--- NOTE | 2019-05-25 09:25 | PDOC ---
Provider Note Provider Note DISCHARGE SUMMARY: FINAL DIAGNOSIS: 1. ISCHEMIC CMP 2. LEFT SUBCLAVIAN VEIN OCCLUSION 3. PRIOR carotid hypersensitivity S/P DUAL CHAMBER PACER 4. HTN 5. DLP HOSPITAL COURSE: Patient was admitted post attempt at ICD upgrade of his pacemaker. He had subclavian vein occlusion and venoplasty was unable to be performed. Therefore, further intervention was deferred in favor of laser lead extraction via OSH at a future date. He was monitored overnight. This a.m. he had some soreness of the left pacer pocket but no hematoma. Post procedure CXR w/o PTX. This morning he complained of severe headaches for the last several months. Therefore CT scan of the head was ordered prior to DC. Results are pending. Follow up: [address] Krause for wound check. DC meds: 1. entresto / p.o bid 2. atorvastatin 3. lasix 40mg daily 4. ASa 81mg daily Disposition: Home after head CT obtained. Discussed with patient again about plans and explained to him the current issues with subclavian vein occlusion and need for high risk laser lead extraction etc. ALVARO HAIDER MD May 25, 2019 09:25
[2019-05-25 11:00] VITALS: BP 110/68
--- NOTE | 2019-05-25 11:29 | RAD ---
EXAM: CT HEAD WITHOUT CONTRAST. HISTORY: Severe headaches. TECHNIQUE: Computed tomography of the head was performed without intravenous contrast. One or more of the following individualized dose reduction techniques were utilized for this examination: 1. Automated exposure control. 2. Adjustment of the mA and/or kV according to patient size. 3. Use of iterative reconstruction technique. COMPARISON: 12/27/2017. FINDINGS: There is no intracranial hemorrhage. Hypoattenuation within the white matter indicates moderate chronic microangiopathic change. The ventricles are normal in size and position. The visualized paranasal sinuses appear clear. There are changes of bilateral cataract surgery. The temporal bones are unremarkable. The calvarium reveals no suspicious lesions. IMPRESSION: 1. No acute intracranial findings. 2. Moderate chronic microangiopathic white matter change. Electronically signed by: James Henderson MD (05/25/2019 11:26 AM) [facility]
--- NOTE | 2019-05-25 13:45 | NUR ---
Discharge Note: JASPREET JAY Discharge instructions and discharge home medications reviewed with Patient and a copy given. All questions have been answered and understanding verbalized. Patient instructed on incision care for left chest and left groin. Discontinued lines and drains: Peripheral IV intact. Patient discharged to Home or Self Care with Family Member via Wheelchair
--- NOTE | 2019-05-27 11:58 | CARD ---
MR#: [id number] Date of Study: 05/24/2019 Ordering Physician: SUNNY KRAUSE, Referring Physician: SUNNY KRAUSE, Tech: APPROVED REPORT EXAM 1. Attempted Biotronik permanent pacemaker upgrade to AICD with pocket revision. 2. Left subclavian venogram and attempted venoplasty for chronic total occlusion FL TIME: 59.4 MIN DOSE: 208 GY/CM2 CONTRAST: 140 ML SEDATION: 67 MINS INDICATIONS Primary prevention of sudden cardiac in a patient history of permanent pacemaker implantation i n the past presenting with chronic systolic heart failure, LVEF 25% PROCEDURE After explaining the risks, benefits, and alternative options, informed consent was obtained from the patient. The patient was brought to the cardiac catheterization lab and the left chest and shoulder were prepp ed and draped in the usual fashion. 30 mL of 2% lidocaine was infiltrated into the skin and subcutaneous tissues for local anesthesia. An incision was made over the previous scar in the left infraclavicular fossa and using blunt dissectio n and cautery, the pocket was opened, capsule exposed and opened and the generator removed from the p ocket. Several attempts to obtain left subclavian venous access for unsuccessful. 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 After discussing with interventional radiology Dr. Miguel Ulloa, we decided to perform venoplasty on t he left subclavian vein followed by RV defibrillator lead placement. Venous access was obtained the left axillary vein using a micropuncture kit and a 5 Indonesian sheath was inserted. Several attempts to advance a 0.035 inch Glidewire with backup support from 4 Indonesian angled glide catheter were unsuccess ful. We then decided to attempt venoplasty via groin approach. His left groin was then prepped and draped in the usual fashion. 10 mL of 2% lidocaine was infiltrate d into the skin and subcutaneous tissues for local anesthesia. Venous access was obtained in the left common femoral vein and a 6 Indonesian sheath was inserted. A 6 Indonesian MPA 1 guide catheter was advanced into the left subclavian vein under fluoroscopy guidance and attempts were made to cross the chronic occlusion with 0.035 inch stiff angled Glidewire but were unsuccessful. We then tried more directed approach in different angles using Navicross catheter followed by Berenstein catheter and using the s tiff angled Glidewire (front and back ends), 0.035 inch Magic torque wire and finally with 0.018 inch V-18 guidewire but were unsuccessful probably due to the chronic nature of the lesion and multiple c ollaterals arising just before and after the chronic occlusion. Since we are used approximately 59 mi nutes of fluoroscopy time we decided to abandon the venoplasty procedure. The right atrial and right ventricular leads were interrogated due to all the manipulations and were found to be functioning well. These with reattached to the dual-chamber permanent pacemaker generator . This was placed in the pocket that was subsequently closed in 3 layers. Hemostasis was secured. Pa jay tolerated the procedure well. There were no immediate complications. 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 Attempted long and complex venoplasty of the left subclavian occlusion, unsuccessful probably due to the chronic nature of the lesion. RECOMMENDATIONS We will discuss with EP regarding possible laser extraction of the right ventricular lead and use the channel created in the chronic occlusion to place right ventricular defibrillator lead. Signed by : Sunny Krause, Electronically Approved : 05/24/2019 15:53:33
== END 2019-05-25 13:45 | disposition home or self-care (01) ==
LOC: SURG 09:49 → 2 NORTH 11:30
PROVIDERS: ADMIT Internal Medicine Cardiovascular Disease; ATTEND Internal Medicine Cardiovascular Disease
DX: I25.5 Ischemic cardiomyopathy (principal); I82.B12 Acute embolism and thrombosis of left subclavian vein; G90.01 Carotid sinus syncope; I10 Essential (primary) hypertension
CPT/HCPCS: 33223; 36415; 70450; 71045; 75820; 80048; 82962; 85027; 85610; 85730; 93005; 94640; 94760; 96365; 96366; 96367; 96372; 96375; 96376; C1713; C1769; C1887; C1892; C1894; G0378; G0379; J0696; J1815; J2250; J2370; J2704; J3010; J3490; J7050; J7620; J7626; Q9967; 99152; 99153; J7030

== ENCOUNTER → 2019-06-11 | Outpatient (CLI) | payer MEDICARE ==
[2019-05-25 11:00] VITALS: BP 110/68
[~2019-06-11] MED LIST changes: -HYDROmorphone 2 MG/ML VIAL IV PRN; +IOHEXOL 300 MG/ML 100ML VIAL. IV ONE; -IV RINGERS,LACTATED 1000ML 1,000 ML IV SCH; -MORPHINE SULFATE 2 MG/ML VIAL. IV PRN; -ONDANSETRON PF 4 MG/2 ML VIAL. IV PRN; -PROCHLORPERAZINE 10 MG/2 ML VIAL. IV PRN; +SACU1TAB PO; -fentaNYL PF VIAL 100 MCG/2 ML VIAL IV PRN
--- NOTE | 2019-06-11 15:46 | RAD ---
Examination: CT CHEST W/CONTRAST History: Dyspnea Comparison/Correlation: 11/28/2017 CTA of the chest Findings: Axial images of chest were obtained following IV contrast. Sagittal and coronal reformatted images were provided. There is excellent opacification of the thoracic aorta. Dual-lead left-sided pacemaker is present. 50 percent stenosis of the left subclavian artery origin noted. No enlarged thoracic lymph nodes. Marked coronary arterial calcification is present especially at the left anterior descending distribution. No enlarged thoracic lymph nodes. Nonenlarged superior mediastinal lymph nodes are present. Small sliding hiatal hernia is present. Subtle interstitial thickening of the lung garcia is present. No focal infiltrate or effusion. No pneumothorax. Cholecystectomy noted. Mild degenerative changes of the lower thoracic spine are present. Impression: Small sliding hiatal hernia. No infiltrate. No suspicious pulmonary nodule or mass. The right hilum and infrahilar region are unremarkable. PQRS Compliance Statement: One or more of the following individualized dose reduction techniques were utilized for this examination: 1. Automated exposure control 2. Adjustment of the mA and/or kV according to patient size 3. Use of iterative reconstruction technique Electronically signed by: Franck Zamarripa MD (06/11/2019 3:43 PM) [facility]
== END | disposition home or self-care (01) ==
LOC: CT 10:07
PROVIDERS: ATTEND Family Medicine
DX: K44.9 Diaphragmatic hernia without obstruction or gangrene (principal); I25.10 Atherosclerotic heart disease of native coronary artery without angina pectoris; R91.8 Other nonspecific abnormal finding of lung field; M47.814 Spondylosis without myelopathy or radiculopathy, thoracic region; Z90.49 Acquired absence of other specified parts of digestive tract
CPT/HCPCS: 71260; Q9967

== ENCOUNTER → 2020-02-26 | Outpatient (CLI) | payer MEDICARE ==
[2019-07-16 15:00] VITALS: BP 105/70
[~2020-02-26] MED LIST changes: +ASPI-630 PO; +DOXY100C2 PO; -IOHEXOL 300 MG/ML 100ML VIAL. IV ONE; +OXYC5CAP PO; +POTA10TA6 PO; +REGADENOSON 0.4 MG/5 ML DISP.SYRIN. IV ONE; +SENN-182 PO; -SENN-80 PO
--- NOTE | 2020-02-26 15:02 | CARD ---
MR#: [id number] Date of Study: 02/26/2020 Ordering Physician: DEL STEPHENS, Referring Physician: DEL STEPHENS, Tech: Angie Marshall APPROVED REPORT EXAM: Two-dimensional and M-mode echocardiogram with Doppler and color Doppler. Other Information Quality : AverageHR: 96bpm INDICATION Congestive Heart Failure Surgery/Intervention ICD/Pacemaker: Date: 2019 RISK FACTORS Diabetes Smoking 2D DIMENSIONS Left Atrium(2D)2.9 (1.6-4.0cm)IVSd1.1 (0.7-1.1cm) Aortic Root(2D)3.4 (2.0-3.7cm)LVDd6.1 (3.9-5.9cm) LVOT Diameter2.0 (1.8-2.4cm)PWd1.2 (0.7-1.1cm) LVDs4.0 (2.5-4.0cm)FS (%) 33.7 % SV113.9 ml Aortic Valve AoV Peak Kenan.112.2cm/sAoV VTI17.8cm AO Peak GR.5.0mmHgLVOT Peak Kenan.100.9cm/s LVOT VTI 17.99cmAO Mean GR.3mmHg SAL (VMAX)2.99cx8AQD (VTI)3.32cm2 Mitral Valve MV E Cqtaoxvc36.5cm/sMV A Wcbxeuys034.1cm/s E/A Ratio0.8 TDI E/Lateral E'11.2E/Medial E'19.3 Pulmonary Valve PV Peak Eengkafq26.2cm/sPV Peak Grad.2mmHg Tricuspid Valve TR P. Pdgszgqh109eo/sRAP DLNPUODK8gvQv TR Peak Gr.49icRlUYXK03wfJg LEFT VENTRICLE The Left Ventricle is mildly dilated. There is mild concentric left ventricular hypertrophy. The syst olic function is severely impaired. The Ejection Fraction is estimated at 25%. There is severe global hypokinesis of the left ventricle. Transmitral Doppler flow pattern is Grade I-abnormal relaxation p attern. RIGHT VENTRICLE The right ventricle is normal size. There is normal right ventricular wall thickness. The right ventr icular systolic function is normal. There is a device lead in the right ventricle. ATRIA The left atrium size is normal. The right atrium size is normal. The interatrial septum is intact wit h no evidence for an atrial septal defect or patent foramen ovale as noted on 2-D or Doppler imaging. AORTIC VALVE The aortic valve is calcified but opens well. Doppler and Color Flow revealed trace aortic regurgitat ion. There is no significant aortic valvular stenosis. Calculated aortic valve area is 3.18 cm2 with maximum pressure gradient of 5 mmHg and mean pressure gradient of 3 mmHg. MITRAL VALVE The mitral valve is thickened but opens well. There is no evidence of mitral valve prolapse. There is no mitral valve stenosis. Doppler and Color-flow revealed trace mitral regurgitation. TRICUSPID VALVE The tricuspid valve is normal in structure and function. Doppler and Color Flow revealed trace tricus pid regurgitation with an estimated PAP of 32 mmHg. There is no tricuspid valve stenosis. PULMONIC VALVE The pulmonic valve is not well visualized. Doppler and Color Flow revealed trace pulmonic valvular re gurgitation. GREAT VESSELS The aortic root is normal in size. The IVC is normal in size and collapses >50% with inspiration. PERICARDIAL EFFUSION There is no evidence of significant pericardial effusion. Critical Notification Critical Value: No <Conclusion> The Left Ventricle is mildly dilated. The systolic function is severely impaired. The Ejection Fraction is estimated at 25%. There is severe global hypokinesis of the left ventricle. There is mild concentric left ventricular hypertrophy. Doppler and Color Flow revealed trace aortic regurgitation. There is no significant aortic valvular stenosis. Doppler and Color-flow revealed trace mitral regurgitation. Doppler and Color Flow revealed trace tricuspid regurgitation with an estimated PAP of 32 mmHg. Signed by : Tony Wang MD Electronically Approved : 02/26/2020 15:01:25
--- NOTE | 2020-02-26 15:46 | RAD ---
MR#: [id number] Date of Study: 02/26/2020 Ordering Physician: DEL STEPHENS, Referring Physician: JANAK MEDEIROS Tech: MAXIM Florez ARRT (R) (N) APPROVED REPORT Test Type: Pharmacological Stress Nurse/Tech: Lorena Judge RN Test Indications: CAD, dyspnea on exertion Cardiac History: Diabetes,stents x3,Pacemaker/defibrillator Medications: See Electronic Medical Record Medical History: See Electronic Medical Record Resting ECG: V Paced Resting Heart Rate: 99 bpm Resting Blood Pressure: 122/70mmHg Pretest Chest Pain: No chest pain Nurse/Tech Notes S1,S2 and lungs coarse throughout. Patient stated he uses oxygen at home 2-4L prn. Consent: The procedure was explained to the patient in lay terms. Informed consent was witnessed. Silas eout was entered into [employer]. History and Stress Test performed by RT Vianca (R) (N) Pharm. Details Pharmacologic stress testing was performed using 0.4mg per 5ml of regadenoson given intravenously ove r 7-10 seconds. Stress Symptoms Dyspnea,Dizziness,chest pressure after study was complete POST EXERCISE Reason for Termination: Infusion complete Target HR: No Max HR: 114 bpm 87% of Maximum Predicted HR: 130 bpm Max Blood Pressure: 119/64mmHg Blood Pressure response to exercise: Normal blood pressure response during stress. Heart Rate response to exercise: WNL Chest Pain: Yes. Chest pressure post test. Arrhythmia: Yes. PVC INTERPRETATION Stress EKG Conclusion: The resting EKG shows a sinus rhythm with ventricularly paced beats. The patient remains in a sinus rhythm with ventricularly paced beats during the study. Imaging Protocol IMAGE PROTOCOL: Rest Tc-99m/stress Tc-99m 1 day Rest: Stress: Viability: Radiopharm.Tc99m VmcgrcbauSe50i Sestamibi Dose10.3mCi 32mCi Img Date 02/26/2020 02/26/2020 Inj-Img Ugag54nhc. 60min. Rest Admin Site:IV - Right WristAdministrator:MAXIM Florez ARRT (R)(N) Stress Admin Site: IV - Right WristAdministrator: Sary Chacon, RT (R)(N) STRESS DATA End Diast. Vol.263.0mlAv. Heart Enig922.0bpm End Syst. Vol.194.0mlCO Index BSA7.1L/min Myocardial Dsmp613.0gEject. Cvdfnwok74.0% Stress Rates Pk. Fill Rate1.31EDV/secLVtime Pk. Fill 139.70msec Pk. Empty Rate2.01ESV/secLVtime Pk. Tsoag558.24msec 04/26 Pk. Fill0.23EDV/sec Stress Scores Regional WT2.00Summed WT33.00 Regional WM2.00Summed WM30.00 LV Perfusion The stress scans show a apical defect. The rest scans show an apical defect. Nuclear imaging shows an apical infarct. Nuclear imaging shows no significant reversible ischemia. Wall Motion Left ventricular imaging shows global hypokinesis most significant near the apex with a significantly decreased ejection fraction at 26% LV Perf. Quant 17 Seg. SSS7.00 17 Seg. SRS12.00 17 Seg. SDS0.00 Stress Defect Extent (% LAD)22.50Rest Defect Extent (% LAD)22.50Rev. Defect Extent (% LAD)0.00 Stress Defect Extent (% LCX) 2.50Rest Defect Extent (% LCX)2.50Rev. Defect Extent (% LCX)0.00 Stress Defect Extent (% RCA)8.90Rest Defect Extent (% RCA)24.40Rev. Defect Extent (% RCA)0.00 Stress Defect Extent (% CHUY)16.10Rest Defect Extent (% CHUY)21.30Rev. Defect Extent (% CHUY)0.00 Conclusion 1. Ventricularly paced rhythm. 2. Nuclear imaging shows an apical infarct. 3. Nuclear imaging shows no significant reversible ischemia. 4. Left ventricular systolic function is globally decreased (most severely at the apex) with an eject ion fraction of 26%. Signed by : Tony Wang MD Electronically Approved : 02/26/2020 15:45:52
== END ==
LOC: NM 08:36
PROVIDERS: ATTEND Internal Medicine Cardiovascular Disease
DX: I35.1 Nonrheumatic aortic (valve) insufficiency (principal); I50.22 Chronic systolic (congestive) heart failure; I51.7 Cardiomegaly; Z95.0 Presence of cardiac pacemaker; Z95.5 Presence of coronary angioplasty implant and graft
CPT/HCPCS: 78452; 93017; 93306; A9500; J2785

== ENCOUNTER → 2021-02-18 | Outpatient (CLI) | payer MEDICARE ==
[2019-07-16 15:00] VITALS: BP 105/70
[~2021-02-18] MED LIST changes: +CONTRAST GIVEN. MC PRN; +CYCL10TA19 PO; -CYCL10TA2 PO; -DOXY100C2 PO; +DOXY100C3 PO; -DULO60CA6 PO; +DULO60CA7 PO; +IOHEXOL 300 MG/ML 100ML VIAL. IV ONE; -LISI2.5T PO; +LISI2.5T12 PO; -OMEP40CA45 PO; +OMEP40CA7 PO; +POTA-112 PO; -POTA10TA6 PO; -REGADENOSON 0.4 MG/5 ML DISP.SYRIN. IV ONE
[2021-02-18 08:39] LABS: GFR 74.5
--- NOTE | 2021-02-18 09:27 | RAD ---
EXAM: Chest CT without intravenous contrast. HISTORY: Pulmonary nodule. TECHNIQUE: Computed tomographic images of the chest were obtained without contrast. Multiplanar refor matting was performed. *One or more of the following individualized dose reduction techniques were utilized for this examina tion: 1. Automated exposure control. 2. Adjustment of the mA and/or kV according to patient size. 3. Use of iterative reconstruction technique. COMPARISON: 07/16/2019. FINDINGS: The heart is normal in size. There is a left-sided cardiac pacemaker with leads unchanged i n position. The aorta is normal in caliber. There is aortic and aortic branch vessel atherosclerosis. There is heavily calcified atherosclerotic plaque involving the coronary arteries. There is right gr eater than left gynecomastia. There is no pneumothorax or pleural effusion. There is mild emphysema. There is an irregular left sup rahilar mass within the superior left lower lobe measuring 3.1 cm in maximum transaxial dimension. Th ere is a suspected conglomerate lymphadenopathy within the left hilum and inferior left paratracheal distribution measuring up to 5.4 cm in maximum dimension. There are stable prominent right paratrache al and right hilar lymph nodes. The previously demonstrated right greater than left lower lobe groundglass infiltrate is no longer se en. There is irregular bandlike masslike opacity at the right lung base measuring approximately 3.4 c m, possibly due to consolidation or scarring. There is a 1.6 cm nodular opacity within the posterior right upper lobe along the pleural fissure, possibly due to subsegmental atelectasis. There are a few nonspecific faint groundglass opacities within both lungs. There are few tiny pulmonary nodules kirsty uring up to 3 mm. There is central bronchial wall thickening. There is hepatomegaly and hepatic steatosis. There is a 2.9 cm right adrenal nodule or nodular thicke saida of the right adrenal gland. There are degenerative changes throughout the spine. There is no acu te or suspicious osseous finding. IMPRESSION: 1. New irregular left suprahilar mass within the superior left lower lobe measuring 3.1 cm in maximum dimension. The imaging appearance favors neoplasm rather than masslike consolidation. This is within limits for assessment with PET/CT. 2. New suspected conglomerate lymphadenopathy involving the left hilum and inferior left paratracheal region. There are stable additional prominent mediastinal and right hilar lymph nodes. 3. Resolution of prior groundglass opacity within the right lower lobe. There is bandlike consolidati on or scarring in this location. There is also a 1.6 cm nodular opacity along the right major pleural fissure which may be due to subsegmental atelectasis or scarring. Attention at the time of PET/CT is recommended. 4. Multiple tiny groundglass and nodular opacities measuring up to 3 mm, the largest of which are see n within the left lower lobe. These are nonspecific and may be infectious or inflammatory. 5. Emphysema. 6. Splenomegaly and hepatic steatosis. 7. 2.9 cm right adrenal nodule or nodular thickening of the right adrenal gland, more conspicuous com pared to the prior exam. 8. Central bronchial wall thickening, likely due to the sequela of bronchitis. Electronically signed by: Sary Yuen MD (02/18/2021 9:25 AM) [id number]
== END ==
LOC: CT 08:29
PROVIDERS: ATTEND Family Medicine
DX: J92.9 Pleural plaque without asbestos (principal); R79.89 Other specified abnormal findings of blood chemistry; R91.1 Solitary pulmonary nodule; K76.0 Fatty (change of) liver, not elsewhere classified; R16.0 Hepatomegaly, not elsewhere classified; I25.10 Atherosclerotic heart disease of native coronary artery without angina pectoris; N62 Hypertrophy of breast
CPT/HCPCS: 36415; 71260; 82565; 84520; Q9967

== ENCOUNTER → 2021-03-03 | Outpatient (CLI) | payer MEDICARE ==
[2019-07-16 15:00] VITALS: BP 105/70
[~2021-03-03] MED LIST changes: -CONTRAST GIVEN. MC PRN; -IOHEXOL 300 MG/ML 100ML VIAL. IV ONE; +PERFLUTREN PROTEIN-A MICROSPHR 0.22 MG/ML 3 ML VIAL. IV ONE
--- NOTE | 2021-03-03 12:26 | CARD ---
MR#: [id number] Date of Study: 03/03/2021 Ordering Physician: DEL STEPHENS, Referring Physician: DEL STEPHENS Tech: Jackie Carver [facility] APPROVED REPORT EXAM: Two-dimensional and M-mode echocardiogram with Doppler and color Doppler. Other Information Quality : Technically LimitedHR: 86bpm Rhythm : NSR INDICATION Cardiomyopathy Echo Enhancing Agent Indication: Rule out thrombus Agent/Amount Used: Optison 2mL Surgery/Intervention ICD/Pacemaker: RISK FACTORS Hypertension Smoking 2D DIMENSIONS RVDd3.9 (2.9-3.5cm)Left Atrium(2D)4.2 (1.6-4.0cm) IVSd1.2 (0.7-1.1cm)Aortic Root(2D)3.8 (2.0-3.7cm) LVDd4.9 (3.9-5.9cm)LVOT Diameter2.2 (1.8-2.4cm) PWd1.2 (0.7-1.1cm)LVDs3.6 (2.5-4.0cm) FS (%) 26.4 %SV57.8 ml Aortic Valve AoV Peak Kenan.128.2cm/sAoV VTI27.2cm AO Peak GR.6.6mmHgLVOT Peak Kenan.107.3cm/s AO Mean GR.4mmHgAVA (VMAX)3.21cm2 Pulmonary Valve PV Peak Wmzvnnvt15.6cm/s Tricuspid Valve TR P. Hxlqqumv936dr/sTR Peak Gr.27mmHg LEFT VENTRICLE The Left Ventricle is borderline dilated. There is borderline to mild concentric left ventricular hyp ertrophy. LV systolic function is severely impaired. Estimated LV ejection fraction of 25%. There i s severe global hypokinesis of the left ventricle. At the apex there is more severely decreased LV fu nction. A possible apical thrombus is present but not clearly defined. RIGHT VENTRICLE The right ventricle is normal size. There is normal right ventricular wall thickness. The right ventr icular systolic function is normal. ATRIA The left atrium size is normal. The right atrium size is normal. The interatrial septum is intact wit h no evidence for an atrial septal defect or patent foramen ovale as noted on 2-D or Doppler imaging. AORTIC VALVE The aortic valve is normal in structure and function. Doppler and Color Flow revealed no significant aortic regurgitation. There is no significant aortic valvular stenosis. MITRAL VALVE The mitral valve is normal in structure and function. There is no evidence of mitral valve prolapse. There is no mitral valve stenosis. Doppler and Color Flow revealed trace to mild mitral valve regurgi tation. TRICUSPID VALVE The tricuspid valve is normal in structure and function. Doppler and Color Flow revealed trace tricus pid regurgitation. Estimated ejection fraction 30-35 mmHg. There is no tricuspid valve stenosis. PULMONIC VALVE The pulmonary valve is normal in structure and function. Doppler and Color Flow revealed no pulmonic valvular regurgitation. GREAT VESSELS The aortic root is mildly enlarged. The ascending aorta is mildly dilated. The IVC was not visualized . PERICARDIAL EFFUSION There is no evidence of significant pericardial effusion. Critical Notification Critical Value: No <Conclusion> The Left Ventricle is borderline dilated. LV systolic function is severely impaired. Estimated LV ejection fraction of 25%. There is severe global hypokinesis of the left ventricle. At the apex there is more severely decreased LV function. A possible apical thrombus is present but not clearly defined. There is borderline to mild concentric left ventricular hypertrophy. Doppler and Color Flow revealed no significant aortic regurgitation. There is no significant aortic valvular stenosis. Doppler and Color Flow revealed trace to mild mitral valve regurgitation. Doppler and Color Flow revealed trace tricuspid regurgitation. Estimated ejection fraction 30-35 mmH g. The aortic root is mildly enlarged. Signed by : Tony Wang MD Electronically Approved : 03/03/2021 12:25:44
== END ==
LOC: ECHO 08:47
PROVIDERS: ATTEND Internal Medicine Cardiovascular Disease
DX: I08.1 Rheumatic disorders of both mitral and tricuspid valves (principal); I50.22 Chronic systolic (congestive) heart failure; I10 Essential (primary) hypertension; F17.210 Nicotine dependence, cigarettes, uncomplicated
CPT/HCPCS: 93306; Q9956

== ENCOUNTER 2021-03-22 08:54 | Day surgery (SDC) | payer MEDICARE ==
[~2021-03-22] VITALS: Ht 182.9 cm; Wt 100.0 kg
[~2021-03-22 08:54] MED LIST changes: +IV RINGERS,LACTATED 1000ML 1,000 ML IV SCH; -PERFLUTREN PROTEIN-A MICROSPHR 0.22 MG/ML 3 ML VIAL. IV ONE
[2021-03-22 09:22] VITALS: BP 134/73
[2021-03-22] MEDS ORDERED: INSULIN LISPRO 100 UNIT/ML 3ML VIAL for OP,RR ONLY. SQ PRN (09:30)
[2021-03-22] MEDS ORDERED: INSULIN LISPRO 100 UNIT/ML 3ML VIAL for OP,RR ONLY. SQ ONE (09:45)
[2021-03-22] MEDS ORDERED: RIVA20TA2 PO (09:48)
[2021-03-22] MEDS ORDERED: CARV3.123 PO (09:48)
[2021-03-22] MEDS ORDERED: LIDOCAINE 2% VISCOUS 15 ML SOLUTION. ONE (09:50)
[2021-03-22] MEDS ORDERED: BENZOCAINE ONE 20% MUCOSAL SPRAY. (09:50)
[2021-03-22] MEDS ORDERED: LIDOCAINE 2% TOPICAL JELLY 30GM TUBE. TP ONE ×2 (09:50→10:00)
[2021-03-22] MEDS ORDERED: BENZOCAINE ONE 20% MUCOSAL SPRAY. MM (10:00)
[2021-03-22] MEDS ORDERED: LIDOCAINE 2% VISCOUS 15 ML SOLUTION. SWSW ONE (10:00)
[2021-03-22] MEDS ORDERED: PROPOFOL 10 MG/ML (20ML) VIAL. IV ONE (11:15)
[2021-03-22] MEDS ORDERED: LIDOCAINE 2% PF 5 ML VIAL. ONE (11:15)
[2021-03-22 12:00] VITALS: BP 111/74
--- NOTE | 2021-03-23 09:26 | CARD ---
MR#: [id number] Date of Study: 03/22/2021 Ordering Physician: DEL KRAUSE, Referring Physician: DEL KRAUSE Tech: Angie Marshall [facility] APPROVED REPORT EXAM: Transesophageal echocardiogram with color flow Doppler. Surgery/Intervention Pacemaker: Date: 2015 RISK FACTORS Hyperlipidemia Smoking Reason For Test : Rule out Intracardiac Thrombus. PROCEDURE After obtaining informed consent, patient underwent transesophageal echo in the PACU. Type of Sedation : General Anesthesia Sedation was administered by Sundeep Perez. Sedation was achieved with Propofol 160mg intravenously. Sedation was achieved with Lidocane 50mg intravenously. Transesophageal probe was inserted and advanced into esophagus by Del Krause MD. The PATRICE was performed without complications. Throughout the procedure, the blood pressure, pulse oximetry, cardiac rhythm, and rate were monitored . The patient tolerated the procedure without adverse effects. Recovery from general anesthesia was une ventful and vital signs were stable. LEFT VENTRICLE The left ventricle is normal size. There is normal left ventricular wall thickness. The left ventricu lar systolic function is severely impaired. The Ejection Fraction is 25%. There is global hypokinesis of the left ventricle. No left ventricle thrombus noted on this study. RIGHT VENTRICLE The right ventricle is normal size. There is normal right ventricular wall thickness. The right ventr icular systolic function is normal. ATRIA The left atrium size is normal. The right atrium size is normal. The interatrial septum is intact wit h no evidence for an atrial septal defect or patent foramen ovale as noted on 2-D or Doppler imaging. AORTIC VALVE The aortic valve is normal in structure and function. Doppler and Color Flow revealed trace aortic re gurgitation. There is no significant aortic valvular stenosis. MITRAL VALVE The mitral valve is normal in structure and function. There is no evidence of mitral valve prolapse. There is no mitral valve stenosis. Doppler and Color-flow revealed trace mitral regurgitation. TRICUSPID VALVE The tricuspid valve is normal in structure and function. Doppler and Color Flow revealed trace tricus pid regurgitation. There is no tricuspid valve stenosis. PULMONIC VALVE The pulmonic valve is not well visualized. Doppler and Color Flow revealed no pulmonic valvular regur gitation. GREAT VESSELS The aortic root is normal in size. The ascending aorta is Mildly dilated. PERICARDIAL EFFUSION There is no evidence of significant pericardial effusion. Critical Notification Critical Value: No <Conclusion> The left ventricular systolic function is severely impaired. The Ejection Fraction is 25%. No evidence of left ventricular apical thrombus. Trace mitral regurgitation. Trace tricuspid regurgitation. There is no evidence of significant pericardial effusion. Signed by : Del Krause, Electronically Approved : 03/23/2021 09:25:52
== END 2021-03-22 12:24 | disposition home or self-care (01) ==
LOC: SURG 08:54
PROVIDERS: ATTEND Internal Medicine Cardiovascular Disease
DX: I82.890 Acute embolism and thrombosis of other specified veins (principal); I51.3 Intracardiac thrombosis, not elsewhere classified; I25.10 Atherosclerotic heart disease of native coronary artery without angina pectoris; I10 Essential (primary) hypertension; E78.00 Pure hypercholesterolemia, unspecified; J43.9 Emphysema, unspecified; G47.30 Sleep apnea, unspecified; K21.9 Gastro-esophageal reflux disease without esophagitis; E11.9 Type 2 diabetes mellitus without complications; M19.90 Unspecified osteoarthritis, unspecified site; F32.9 Major depressive disorder, single episode, unspecified; N40.0 Benign prostatic hyperplasia without lower urinary tract symptoms; F17.210 Nicotine dependence, cigarettes, uncomplicated; Z90.49 Acquired absence of other specified parts of digestive tract; Z98.890 Other specified postprocedural states; Z79.82 Long term (current) use of aspirin; Z79.4 Long term (current) use of insulin; Z79.899 Other long term (current) drug therapy; Z72.89 Other problems related to lifestyle; Z82.49 Family history of ischemic heart disease and other diseases of the circulatory system
CPT/HCPCS: 82962; 93312; 93320; 93325; J2704; J1815

== ENCOUNTER 2021-09-20 16:12 | Emergency (ER) | payer MEDICARE ==
[~2021-09-20 16:12] MED LIST changes: +CARV3.123 PO; +DOXY50TA PO; -DOXY50TA8 PO; -IV RINGERS,LACTATED 1000ML 1,000 ML IV SCH; +RIVA20TA2 PO
[2021-09-20 16:57] LABS: BASO # 0.1 x10^3/uL (0.0-0.2); BASO % 1 % (0-3); EOS # 0.1 x10^3/uL (0.0-0.7); EOS % 1 % (0-3); HEMATOCRIT 44.9 % (39.0-53.0); LYMPH # 2.4 x10^3/uL (1.0-4.8); LYMPH % 18 % (24-48); MEAN CORPUSCULAR HEMOGLOBIN 33 pg (25-35); MEAN CORPUSCULAR HGB CONC 36 g/dL (31-37); MEAN CORPUSCULAR VOLUME 94 fL (79-100); MONO # 1.1 x10^3/uL (0.0-1.1); MONO % 8 % (0-9); NEUT % 73 % (31-73); PLATELET COUNT 244 x10^3/uL (140-400); RED CELL DISTRIBUTION WIDTH 13.1 % (11.5-14.5); WHITE BLOOD COUNT 13.8 x10^3/uL (4.0-11.0)
[2021-09-20 17:06] LABS: CREATININE 1.6 mg/dL (0.7-1.3); GFR 43.3; POTASSIUM 3.4 mmol/L (3.5-5.1); PROTHROMBIN TIME PATIENT 14.7 SEC (11.7-14.0)
[2021-09-20 17:11] LABS: ALBUMIN 3.3 g/dL (3.4-5.0); ALBUMIN/GLOBULIN RATIO 0.8 (1.0-1.7); MAGNESIUM 1.8 mg/dL (1.8-2.4); TOTAL BILIRUBIN 0.3 mg/dL (0.2-1.0); TOTAL PROTEIN 7.3 g/dL (6.4-8.2)
[2021-09-20] MEDS ORDERED: IOHEXOL 300 MG/ML 100ML VIAL. IV ONE (17:15)
[2021-09-20] MEDS ORDERED: CONTRAST GIVEN. MC PRN (17:15)
--- NOTE | 2021-09-20 17:34 | RAD ---
PQRS Compliance Statement: One or more of the following individualized dose reduction techniques were utilized for this examinat ion: 1. Automated exposure control 2. Adjustment of the mA and/or kV according to patient size 3. Use of iterative reconstruction technique CT HEAD AND CERVICAL SPINE WITHOUT CONTRAST History: Reason: Fall, altered level consciousness / Spl. Instructions: / History: Comparison: CT head without contrast May 25, 2019. Procedure: Axial images are obtained of the head from the skull base through the vertex without IV co ntrast. Noncontrast helical CT of the cervical spine was performed. Axial, sagittal, and coronal rec onstructions were obtained. Findings: The ventricles and sulci are normal for the patient's age. There is moderate periventricular white ma tter hypoattenuation. This is a nonspecific finding but is commonly due to chronic small vessel isch emic disease in a patient of this age. No mass-effect, midline shift, hemorrhage or obvious acute infarction is identified. Basilar cistern s are patent. Bone windows demonstrate no significant calvarial abnormality. The visualized paranasal sinuses are clear. Mastoid air cells are well aerated. There is no evidence of acute fracture or acute malalignment of the cervical spine. The facet joints are hypertrophic but intact. There is disc space narrowing and probably reactive end plate sclerosis in the cervical spine with the exception of C2/C3 and C7/T1. The alignment is maintai fredo. Multilevel uncinate process hypertrophy. There is multilevel neural foraminal narrowing. Visualized soft tissues of the neck demonstrate no significant abnormalities. The visualized lung api kylah are clear. IMPRESSION: 1. No acute intracranial abnormality. 2. No acute fracture of the cervical spine. Electronically signed by: Shaji Yen MD (09/20/2021 5:32 PM) [facility]
--- NOTE | 2021-09-20 17:43 | RAD ---
CT CHEST+ABD+PELVIS W History: Fall. Pain. Comparison: CT chest 02/18/2021. CT abdomen and pelvis 05/18/2015. Technique: CT of the chest, abdomen and pelvis with intravenous contrast Findings: There is a left chest dual-chamber pacemaker-defibrillator with lead tips terminating in right atrium and right ventricle. The thyroid is unremarkable. Mildly patulous distal esophagus containing only. There is enlarged medi astinal adenopathy with right lower tracheal node measuring 3.4 x 2.0 cm. This is significantly enlar ged compared to January 2021 comparison. Confluent left mediastinal and hilar adenopathy surrounding the upper and lower lobe bronchi. There is a superior segment left lower lobe nodule with irregular margins measuring 2.4 x 1.8 cm (axi al 27) which extends to the masslike left hilar adenopathy. Groundglass opacity in the anterior right upper lobe measures approximately 1.1 cm diameter. No pleural effusion or pneumothorax. The liver is unremarkable. The gallbladder is surgically absent. The pancreas, spleen and adrenal gla nds are unremarkable. There is a punctate nonobstructing nephrolith at the lower pole left kidney. Th e bladder and prostate are unremarkable. The stomach and small bowel are within normal limits. The colon is decompressed. No intra-abdominal free air or free fluid. In the region of the right internal inguinal ring there is a 2.7 x 1.8 cm soft tissue attenuation which appear similar to 2016 and may represent postsurgical c hange. No adenopathy. Bilateral gynecomastia. Postsurgical changes of the lumbar spine with posterior decompression at L4-L 5. Multilevel degenerative changes. Impression: 1. Left lower lobe superior segment pulmonary nodule with extension to the left hilum and significan t mediastinal and hilar adenopathy. 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 2. No traumatic findings in the chest, abdomen and pelvis. 3. Nonobstructing left nephrolithiasis. Findings discussed with CORINA TURK APRN at 09/20/2021 5:38 PM. FOR INTERNAL CODING PURPOSES RESULT CODE: (C) ------ Exposure: One or more of the following individualized dose reduction techniques were utilized for thi s examination: 1. Automated exposure control 2. Adjustment of the mA and/or kV according to patient size 3. Use of iterative reconstruction technique. Electronically signed by: Mickey Malagon MD (09/20/2021 5:40 PM) [facility]
--- NOTE | 2021-09-20 17:50 | PHYS DOC ---
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 Screen Examiner reports patient was found unresponsive outside in his front yard, was unresponsive for an unknown period of time, transported to the emergency department emergent. Patient's arrives and states that she and patient were outside working on his truck, he was underneath a truck and was scooting himself out and when he went to stand up he fell back down to the ground onto his hands and knees, and then laid himself down to the ground and had what she thinks was a seizure. 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 Patient's reports he did not strike his head, he does present with a abrasion to his forehead, states t hat this happened yesterday when he bumped his head on a cabinet. States the patient did not lose consciousness at that time. The patient's also reports the patient does have a pacemaker. Reports his home medications of Symbicort, carvedilol, Xarelto, senna, Lasix, gabapentin, Entresto, tizanidine, atorvastatin, duloxetine, Lio red, tamsulosin, cranberry, spironolactone, aspirin, Tylenol, omeprazole, oxycodone, and Tresiba. Review of Systems: Review of Systems: 14 body systems of review of systems have been reviewed. See HPI for pertinent positives and negative responses, otherwise all other systems are negative, nonpertinent or noncontributory. Constitutional: Negative except as outlined in HPI above. Skin: Negative except as outlined in HPI above. Eyes: Negative except as outlined in HPI above. HENT: Negative except as outlined in HPI above. Respiratory: Negative except as outlined in HPI above. Cardiovascular: Negative except as outlined in HPI above. GI: Negative except as outlined in HPI above. : Negative except as outlined in HPI above. Musculoskeletal: Negative except as outlined in HPI above. Integument: Negative except as outlined in HPI above. Neurologic: Negative except as outlined in HPI above. Endocrine: Negative except as outlined in HPI above. Lymphatic: Negative except as outlined in HPI above. Psychiatric: Negative except as outlined in HPI above. Heart Score: C/O Chest Pain: No Risk Factors: Risk Factors: DM, Current or recent (<one month) smoker, HTN, HLP, family history of CAD, obesity. Risk Scores: Score 0 - 3: 2.5% MACE over next 6 weeks - Discharge Home Score 4 - 6: 20.3% MACE over next 6 weeks - Admit for Clinical Observation Score 7 - 10: 72.7% MACE over next 6 weeks - Early Invasive Strategies Current Medications: Current Medications Medications (Trade) Dose Ordered Sig/Aretha Start Time Stop Time Status Last Admin Dose Admin Info (CONTRAST GIVEN -- Rx MONITORING) 1 each PRN DAILY PRN 09/20/21 17:15 09/22/21 17:14 Iohexol (Omnipaque 300 Mg/ml) 75 ml 1X ONCE 09/20/21 17:15 09/20/21 17:17 DC Allergies: Allergies: Allergies Coded Allergies Type Severity Reaction Last Updated Verified No Known Drug Allergies 03/22/21 No Physical Exam: PE: Constitutional: Well developed, well nourished, no acute distress, non-toxic appearance. 65-year-old male answering questions slowly, is alert. HENT: Normocephalic, atraumatic. There is a abrasion to the center forehead. There is no skull contusions or depressions appreciated, there is no malocclusion, there is no raccoon eyes, there is no battles sign, bilateral TMs are intact and within normal limits, patient is speaking with normal phonation. Eyes: Conjunctiva normal, no discharge. Satisfactory 6 cardinal eye movements. Neck: Normal range of motion, no stridor. Patient does have C-spine pain, was placed in [place] collar by ED nursing staff. Cardiovascular: No cyanosis appreciated, distal cap refill less than 2 seconds. Tachycardic rhythm per auscultation heart sounds S1-S2. Lungs & Thorax: Patient is in no respiratory distress, no audible adventitious lung sounds appreciated. Lung sounds diminished in bases per auscultation, no accessory muscle use per work of breathing, normal work of breathing.. Abdomen: Nontender, no abnormalities noted. Skin: Warm, dry, no erythema, no rash. Back: No tenderness, no deformities. Extremities: No tenderness, no cyanosis, no clubbing, ROM intact, no edema. Neurologic: Alert and oriented X 3, normal motor function, normal sensory function, no focal deficits noted. Psychologic: Affect normal, judgement normal, mood normal. Current Patient Data: Labs: Laboratory Tests Test 09/20/21 16:20 09/20/21 16:22 White Blood Count 13.8 x10^3/uL (4.0-11.0) H Red Blood Count 4.80 x10^6/uL (4.30-5.70) Hemoglobin 16.0 g/dL (13.0-17.5) Hematocrit 44.9 % (39.0-53.0) Mean Corpuscular Volume 94 fL (79-100) Mean Corpuscular Hemoglobin 33 pg (25-35) Mean Corpuscular Hemoglobin Concent 36 g/dL (31-37) Red Cell Distribution Width 13.1 % (11.5-14.5) Platelet Count 244 x10^3/uL (140-400) Neutrophils (%) (Auto) 73 % (31-73) Lymphocytes (%) (Auto) 18 % (24-48) L Monocytes (%) (Auto) 8 % (0-9) Eosinophils (%) (Auto) 1 % (0-3) Basophils (%) (Auto) 1 % (0-3) Neutrophils # (Auto) 10.0 x10^3/uL (1.8-7.7) H Lymphocytes # (Auto) 2.4 x10^3/uL (1.0-4.8) Monocytes # (Auto) 1.1 x10^3/uL (0.0-1.1) Eosinophils # (Auto) 0.1 x10^3/uL (0.0-0.7) Basophils # (Auto) 0.1 x10^3/uL (0.0-0.2) Prothrombin Time 14.7 SEC (11.7-14.0) H Prothrombin Time INR 1.2 (0.8-1.1) H Sodium Level 143 mmol/L (136-145) Potassium Level 3.4 mmol/L (3.5-5.1) L Chloride Level 105 mmol/L (98-107) Carbon Dioxide Level 19 mmol/L (21-32) L Anion Gap 19 (6-14) H Blood Urea Nitrogen 22 mg/dL (8-26) Creatinine 1.6 mg/dL (0.7-1.3) H Estimated GFR (Cockcroft-Gault) 43.3 BUN/Creatinine Ratio 14 (6-20) Glucose Level 118 mg/dL (70-99) H Calcium Level 9.0 mg/dL (8.5-10.1) Magnesium Level 1.8 mg/dL (1.8-2.4) Total Bilirubin 0.3 mg/dL (0.2-1.0) Aspartate Amino Transferase (AST) 11 U/L (15-37) L Alanine Aminotransferase (ALT) 15 U/L (16-63) L Alkaline Phosphatase 97 U/L (46-116) Troponin I High Sensitivity 17 ng/L (4-75) NZ-Mdk-J-Type Natriuretic Peptide 755 pg/mL (0-124) H Total Protein 7.3 g/dL (6.4-8.2) Albumin 3.3 g/dL (3.4-5.0) L Albumin/Globulin Ratio 0.8 (1.0-1.7) L Lipase 50 U/L (73-393) L Glucose (Fingerstick) 138 mg/dL (70-99) H Laboratory Tests 09/20/21 16:20 Laboratory Tests 09/20/21 16:20 EKG: EKG: EKG performed at 1622 shows a sinus tachycardia with a right axis deviation, heart rate 109 bpm, RI interval 1.138, QTc interval 0.462, no acute STEMI, no ACS, no acute ischemia appreciated, EKG interpreted by ED attending physician Dr. Chaney. Radiology/Procedures: Radiology/Procedures: REASON: Fall, altered level consciousness PROCEDURE: CT HEAD AND CERVICAL SPINE WO PQRS Compliance Statement: One or more of the following individualized dose reduction techniques were utilized for this examination: 1. Automated exposure control 2. Adjustment of the mA and/or kV according to patient size 3. Use of iterative reconstruction technique CT HEAD AND CERVICAL SPINE WITHOUT CONTRAST History: Reason: Fall, altered level consciousness / Spl. Instructions: / History: Comparison: CT head without contrast May 25, 2019. Procedure: Axial images are obtained of the head from the skull base through the vertex without IV contrast. Noncontrast helical CT of the cervical spine was performed. Axial, sagittal, and coronal reconstructions were obtained. Findings: The ventricles and sulci are normal for the patient's age. There is moderate periventricular white matter hypoattenuation. This is a nonspecific finding but is commonly due to chronic small vessel ischemic disease in a patient of this age. No mass-effect, midline shift, hemorrhage or obvious acute infarction is identified. Basilar cisterns are patent. Bone windows demonstrate no significant calvarial abnormality. The visualized paranasal sinuses are clear. Mastoid air cells are well aerated. There is no evidence of acute fracture or acute malalignment of the cervical spine. The facet joints are hypertrophic but intact. There is disc space narrowing and probably reactive endplate sclerosis in the cervical spine with the exception of C2/C3 and C7/T1. The alignment is maintained. Multilevel uncinate process hypertrophy. There is multilevel neural foraminal narrowing. Visualized soft tissues of the neck demonstrate no significant abnormalities. The visualized lung apices are clear. IMPRESSION: 1. No acute intracranial abnormality. 2. No acute fracture of the cervical spine. Electronically signed by: Shaji Yen MD (09/20/2021 5:32 PM) [facility] REASON: Fall/Hit head PROCEDURE: CT CHEST ABD PELVIS W/CONTRAST CT CHEST+ABD+PELVIS W History: Fall. Pain. Comparison: CT chest 02/18/2021. CT abdomen and pelvis 05/18/2015. Technique: CT of the chest, abdomen and pelvis with intravenous contrast Findings: There is a left chest dual-chamber pacemaker-defibrillator with lead tips terminating in right atrium and right ventricle. The thyroid is unremarkable. Mildly patulous distal esophagus containing only. There is enlarged mediastinal adenopathy with right lower tracheal node measuring 3.4 x 2.0 cm. This is significantly enlarged compared to January 2021 comparison. Confluent left mediastinal and hilar adenopathy surrounding the upper and lower lobe bronchi. There is a superior segment left lower lobe nodule with irregular margins measuring 2.4 x 1.8 cm (axial 27) which extends to the masslike left hilar adenopathy. Groundglass opacity in the anterior right upper lobe measures approximately 1.1 cm diameter. No pleural effusion or pneumothorax. The liver is unremarkable. The gallbladder is surgically absent. The pancreas, spleen and adrenal glands are unremarkable. There is a punctate nonobstructing nephrolith at the lower pole left kidney. The bladder and prostate are unremarkable. The stomach and small bowel are within normal limits. The colon is decompressed. No intra-abdominal free air or free fluid. In the region of the right internal inguinal ring there is a 2.7 x 1.8 cm soft tissue attenuation which appear similar to 2016 and may represent postsurgical change. No adenopathy. Bilateral gynecomastia. Postsurgical changes of the lumbar spine with posterior decompression at L4-L5. Multilevel degenerative changes. Impression: 1. Left lower lobe superior segment pulmonary nodule with extension to the left hilum and significant mediastinal and hilar adenopathy. This is concerning for lung cancer with mediastinal metastatic disease. 2. No traumatic findings in the chest, abdomen and pelvis. 3. Nonobstructing left nephrolithiasis. Findings discussed with CORINA TURK APRN at 09/20/2021 5:38 PM. FOR INTERNAL CODING PURPOSES RESULT CODE: (C) ------ Exposure: One or more of the following individualized dose reduction techniques were utilized for this examination: 1. Automated exposure control 2. Adjustment of the mA and/or kV according to patient size 3. Use of iterative reconstruction technique. Electronically signed by: Mickey Malagon MD (09/20/2021 5:40 PM) [facility] Course & Med Decision Making: Course & Med Decision Making Pertinent Labs and Imaging studies reviewed. (See chart for details) 65-year-old male, vital signs reviewed, presents emergency department concerning syncopal episode at home. Physical presentation suspicious for seizure-like activity, patient does appear to be postictal initially upon arrival to the emergency department, patient was not incontinent. There was no tongue trauma or evidence of oral trauma from biting. Will order CT head and cervical spine, CT chest abdomen pelvis with IV contrast, twelve-lead EKG, CBC, CMP, lipase, magnesium level, NT proBNP, pro time with INR, rapid flu and COVID testing, high-sensitivity troponin I, urinalysis assay, will check patient's pacemaker, urine drug screen, ethanol level. Patient CT head and C-spine are negative for acute fracture, the patient's CT chest abdomen pelvis did reveal left lower lobe mass with metastasis. Discussed these findings with patient, patient reports he is well aware of this, I did recommend to patient admission to the hospital for investigation of syncopal episode and suspicious of seizure-like activity as patient is not on any seizure meds. Patient states he has less than 1 month to live because of his cancer and wishes to go home and live his days out at home. The patient does complain of low back pain, will give pain medication prior to discharge. The patient and I made a joint decision to be discharged home, return for any worsening symptoms or return of symptoms. The patient states he is a DO NOT RESUSCITATE and he w ishes to comfortably at home. Related to patient's health history of end- stage lung cancer with mets, I will not asked patient to sign a leaving AGAINST MEDICAL ADVICE. I did discuss patient case and discharged home decision making with patient's , daughter, and 2 sons who are at bedside, both the patient and the patient's family members feel comfortable with the decision to go home as he does have end-stage lung cancer. I did discuss return to ER precautions and concerns. Patient gave verbal understanding of and is amenable to ED discharge planning. Gildardo Disclaimer: Gildardo Disclaimer: This electronic medical record was generated, in whole or in part, using a voice recognition dictation system. Departure Departure Impression: Primary Impression: Syncopal episodes Qualified Codes: R55 - Syncope and collapse Disposition: 01 HOME / SELF CARE / HOMELESS Condition: GOOD Referrals: STAN MOONEY MD (PCP) Additional Instructions: You were seen today in the emergency department for a passing out spell at home. You do have a pacemaker, this was challenged/investigated by the company, it does not show that it is having any problems. You do have a history of seizures. I suspect this may have been a seizure-like activity. While I did recommend admission to the hospital for further evaluation of this passing out spell. You do have a significant history of lung cancer with metastasis to other parts of your body. You had indicated that you have not been given much time to live. Therefore you and I have made a joint decision to discharge you to home. Please return to the emergency department for any worsening or returning symptoms. I wish you the best of luck. Thank you for visiting our Emergency Department. It was a pleasure taking care of you today in the emergency department and we appreciate you trusting us with your care. If any additional problems come up don't hesitate to return to visit us. Please follow up with your primary care provider so they can plan additional care if needed and know about the problem that you had. If symptoms worsen come back to the Emergency Department. Any concerning symptoms that start such as chest pain, shortness of air, weakness or numbness on one side of the body, running high fevers or any other concerning symptoms return to the ER. CORINA TURK APRN September 20, 2021 17:50
[2021-09-20] MEDS ORDERED: ONDANSETRON PF 4 MG/2 ML VIAL. IVP ONE (18:30)
[2021-09-20] MEDS ORDERED: HYDROmorphone 2 MG/ML INJ. IVP ONE (18:30)
--- NOTE | 2021-09-21 09:09 | EKG ---
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
== END 2021-09-20 19:09 | disposition home or self-care (01) ==
LOC: ER 16:12
DX: S00.81XA Abrasion of other part of head, initial encounter (principal); R55 Syncope and collapse; J44.9 Chronic obstructive pulmonary disease, unspecified; K21.9 Gastro-esophageal reflux disease without esophagitis; E78.00 Pure hypercholesterolemia, unspecified; I25.2 Old myocardial infarction; E11.9 Type 2 diabetes mellitus without complications; F17.200 Nicotine dependence, unspecified, uncomplicated; G89.29 Other chronic pain; Z87.11 Personal history of peptic ulcer disease; Z86.73 Personal history of transient ischemic attack (TIA), and cerebral infarction without residual deficits; Z95.0 Presence of cardiac pacemaker; Z79.899 Other long term (current) drug therapy; W22.8XXA Striking against or struck by other objects, initial encounter; Y93.89 Activity, other specified; Y92.89 Other specified places as the place of occurrence of the external cause; Y99.8 Other external cause status
CPT/HCPCS: 36415; 70450; 71260; 72125; 74177; 80053; 82962; 83690; 83735; 83880; 84484; 85025; 85610; 93005; 96374; 96375; 99285; G0480; J1170; J2405; Q9967